=== PATIENT | male | born 1945 | race Caucasian/White ===

== ENCOUNTER 2021-11-11 23:20 | Inpatient (IN) ==
--- NOTE | 2021-11-12 00:01 | Emergency Department Note ---
History of Present Illness General Chief complaint: Shortness of Breath/Dyspnea Stated complaint: SOB Time Seen by Provider: 11/11/21 23:32 Source: patient Mode of arrival: ambulatory Limitations: no limitations History of Present Illness Provider complaint: shortness of breath Onset (ago): week(s) 2 Maximum Pain Intensity: 2 Associated symptoms: + cough, + fever/chills, + loss of appetite and + shortness of breath; no chest pain Treatments prior to arrival: other This is a 76-year-old male presents emergency department with shortness of breath. Patient states he has had increased shortness of breath, cough, and fever/chills over the last 2 weeks. Patient states he was seen by his PCP as an outpatient a week and a half ago and sent for a chest x-ray which revealed pneumonia. Patient states at that time he was started on an antibiotic which she only has 1 day left of. Per the patient's medication list he has been taking Cefpodoxime. Patient has a history of CLL as well as prior TB. Patient has had multiple episodes of pneumonia which have previously required hospitalization. Patient states he does check his pulse ox at home which has been mostly in the mid 90s but occasionally will drop to 90%. He has not seen anything lower than that. Patient states he has had a decreased appetite, some mild constipation, but is trying to stay well-hydrated. Patient denies any overt nausea or vomiting. 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 He states he also sees Dr. Pierre of oncology. Patient states this past week they also had him perform a sputum culture. Patient denies noting any hemoptysis. Patient states he did miss his last scheduled dose of IVIG. Pt seen during a time of high acuity and national emergency pandemic while wearing PPE. Home Medications Medication Instructions Recorded Confirmed Type omeprazole 20 mg tablet,delayed 20 mg PO DAILY #0 cap 01/16/16 11/12/21 History release ascorbate calcium (vitamin C) 500 500 mg PO DAILY 07/11/21 11/12/21 History mg tablet aspirin 81 mg tablet,delayed 81 mg PO DAILY 07/11/21 11/12/21 History release ferrous sulfate 325 mg (65 mg 325 mg PO DAILY 07/11/21 11/12/21 History iron) tablet (Feosol) fluticasone furoate 200 1 inh INHALATION DAILY 07/11/21 11/12/21 History mcg-vilanterol 25 mcg/dose inhalation powder (Breo Ellipta) fluticasone propionate 50 2 spray INTRANASAL DAILY 07/11/21 11/11/21 History mcg/actuation nasal spray,suspension cefpodoxime 200 mg tablet 200 mg PO BID 11/02/21 11/11/21 History L.acidoph-L.rhamn-B.bifidum-B.long 1 tab PO TIDM 11/11/21 11/11/21 History 12.9 mg (2 billion cell) tablet, DR (Probiotic Acidophilus Biobeads) multivitamin with minerals 1 tab PO DAILY 11/11/21 11/11/21 History (Multiple Vitamin-Minerals) zinc 50 mg tablet 50 mg PO DAILY 11/12/21 11/12/21 History Allergies Allergy/AdvReac Type Severity Reaction Status Date / Time rofecoxib Allergy Intermediate RASH,SWELLING, Verified 11/12/21 00:02 UNSTEADY GAIT/STUMBLING meperidine Allergy Vomiting Unverified 11/12/21 00:02 Past Med/Surg History Medical History (Updated 11/13/21 @ 02:42 by Sue Parekh DO) Asthma BPH (benign prostatic hyperplasia) Tuberculosis UTI (urinary tract infection) Social History Smoking Status: Never smoker Hx Alcohol Use: No Hx Substance Use: No Preferred Language: Chadian Communication Ability: Effective Program Research Specialist Required: No Beliefs That Will Affect Care: None Current Living Situation: Spouse Other Information That Helps Us Care for You: No Feels Safe at Home: Yes Safety Concerns: Feels Safe At This Time Assistive Devices: None Review of Systems A total of 10 systems reviewed and were otherwise negative All systems reviewed & are unremarkable except as noted in HPI & below Physical Exam Vital Signs Vital Signs - 24 hr 11/12/21 04:00 Pulse Rate [Apical] 78 Pulse Rhythm [Apical] Regular Pulse Strength [Apical] Normal Respiratory Rate 20 Respiratory Effort / Characteristics Non-Labored Respiratory Depth Normal Blood Pressure [Right Arm] 174/79 H Blood Pressure Mean [Right Arm] 110 Blood Pressure Position [Right Arm] Lying Pulse Oximetry 95 Oxygen Delivery Method Room Air GENERAL: alert, well appearing, well nourished, no distress, non-toxic EYE EXAM: normal conjunctiva, PERRL and EOM's grossly intact OROPHARYNX: no exudate, no erythema, lips, buccal mucosa, and tongue normal and mucous membranes are moist NECK: supple, no nuchal rigidity, no adenopathy, non-tender LUNGS: Clear to auscultation. Normal chest wall mechanics, no w/r, scattered rhonchi, conversational dyspnea, no retractions, frequent coarse cough noted during exam HEART: no murmurs, S1 normal and S2 normal ABDOMEN: abdomen soft, non-tender, normo-active bowel sounds, no masses, no rebound or guarding. BACK: Back is symmetrical on inspection and there is no deformity, no midline tenderness, no CVA tenderness. SKIN: no rashes and no bruising UPPER EXTREMITIES: upper extremities are grossly normal. FROM, nml pulses b/l. LOWER EXTREMITIES: No pitting edema. FROM, nml pulses b/l. NEURO EXAM: Normal sensorium, cranial nerves II-XII grossly intact, normal speech, no gross weakness of arms, no gross weakness of legs. Gross sensation intact. Course Course 0140: Pt updated on results. 0223: We did inquire of the lab type regarding any appearance of blast cells. 0312: 2 lab techs review the patient's blood and stated there were no blast cells. 0358: Discussed with Dr. Esapña. 0405: Updated pt again. VS stable. Administered Medications Albuterol (Albut/Ipratrop 3mg/0.5mg Neb 3 Ml Vial) 3 ml NEB Q6R FRANCIS; Protocol Stop: 12/12/21 18:59 Last Admin: 11/13/21 00:08 Dose: 3 ml Documented by: [id number] Admin: 11/12/21 19:36 Dose: 3 ml Documented by: [id number] Ascorbic Acid (Ascorbic Acid 500 Mg Tab) 500 mg PO DAILY COUNT INCLUDES THE [facility] Stop: 12/12/21 10:44 Last Admin: 11/12/21 11:09 Dose: 500 mg Documented by: [id number] Aspirin (Aspirin 81 Mg Ectab) 81 mg PO DAILY FRANCIS Stop: 12/12/21 10:44 Last Admin: 11/12/21 11:09 Dose: 81 mg Documented by: [id number] Enoxaparin Sodium (Enoxaparin Inj 40 Mg/0.4 Ml Syr) 40 mg SQ Q24H FRANCIS Stop: 12/12/21 10:44 Last Admin: 11/12/21 11:08 Dose: Not Given Documented by: [id number] Ferrous Sulfate (Ferrous Sulfate 325 Mg Tab) 325 mg PO DAILY FRANCIS Stop: 12/12/21 10:44 Last Admin: 11/12/21 11:09 Dose: 325 mg Documented by: [id number] Fluticasone Propionate (Fluticasone Propionate Na Spr 16 Gm Btl) 2 sprays SOPHIA DAILY FRANCIS Stop: 12/12/21 10:44 Last Admin: 11/12/21 11:10 Dose: Not Given Documented by: [id number] Fluticasone/Vilanterol (Fluticasone/Vilanterol 200/25mcg 14 Puffs/Inhaler) 1 puffs INH DAILY FRANCIS Stop: 12/12/21 10:44 Last Admin: 11/12/21 11:04 Dose: 1 puffs Documented by: [id number] Guaifenesin/Codeine Phosphate (Guaifenesin/Codeine 100mg/10mg 5ml Udc) 5 ml PO Q6H COUNT INCLUDES THE [facility] Stop: 12/12/21 15:59 Last Admin: 11/12/21 21:20 Dose: 5 ml Documented by: [id number] Admin: 11/12/21 16:47 Dose: 5 ml Documented by: [id number] Multivitamins/Minerals (Cerovite Adv Formula Tab) 1 tab PO DAILY COUNT INCLUDES THE [facility] Stop: 12/12/21 10:44 Last Admin: 11/12/21 11:09 Dose: 1 tab Documented by: [id number] Pantoprazole Sodium (Pantoprazole 40 Mg Tab) 40 mg PO DAILY COUNT INCLUDES THE [facility] Stop: 12/12/21 10:44 Last Admin: 11/12/21 11:08 Dose: 40 mg Documented by: [id number] Sodium Chloride (Saline Nasal Gel ([place]) 14.1 Gm Tube) 1 appln TOP DAILY PRN PRN Reason: BANDAGE CHANGE Stop: 12/12/21 15:09 Last Admin: 11/12/21 15:27 Dose: 1 appln Documented by: [id number] Zinc Sulfate (Zinc Sulfate 220 Mg Capsule) 220 mg PO DAILY COUNT INCLUDES THE [facility] Stop: 12/12/21 10:44 Last Admin: 11/12/21 11:09 Dose: 220 mg Documented by: [id number] Discontinued Medications Guaifenesin/Dextromethorphan (Guaifenesin/Dextrom Syrup 200mg/20mg 10ml Udc) 10 ml PO Q6H FRANCIS Stop: 12/12/21 11:59 Last Admin: 11/12/21 12:32 Dose: 10 ml Documented by: [id number] Sodium Chloride (Nss 1000ml) 1,000 mls @ 125 mls/hr IV .Q8H FRANCIS Stop: 12/11/21 23:44 Last Infusion: 11/12/21 10:38 Dose: 0 mls/hr Documented by: [id number] Admin: 11/12/21 09:08 Dose: 125 mls/hr Documented by: [id number] Infusion: 11/12/21 09:05 Dose: 0 mls/hr Documented by: [id number] Infusion: 11/12/21 08:13 Dose: 125 mls/hr Documented by: [id number] Admin: 11/12/21 00:13 Dose: 125 mls/hr Documented by: [id number] Levofloxacin/Dextrose (Levaquin/D5w) 750 mg in 150 mls @ 100 mls/hr IV NOW STA Stop: 11/12/21 04:56 Last Infusion: 11/12/21 05:30 Dose: 0 mls/hr Documented by: [id number] Admin: 11/12/21 03:51 Dose: 100 mls/hr Documented by: [id number] Sodium Chloride (Nss 1000ml) 1,000 mls @ 125 mls/hr IV .Q8H FRANCIS Stop: 11/12/21 20:14 Last Infusion: 11/12/21 21:16 Dose: 0 mls/hr Documented by: [id number] Infusion: 11/12/21 15:00 Dose: 125 mls/hr Documented by: [id number] Admin: 11/12/21 11:01 Dose: 80 mls/hr Documented by: [id number] Ioversol (Optiray 320 100ml) 94 ml IV ONCE ONE Stop: 11/12/21 01:54 Last Admin: 11/12/21 01:54 Dose: 94 ml Documented by: [id number] Lactobacillus Acidophilus (Advanced Probiotic 1250 Mg Capsule) 2 cap PO DAILY FRANCIS Stop: 12/12/21 10:44 Last Admin: 11/12/21 11:09 Dose: 2 cap Documented by: [id number] Miscellaneous Information (Consult Pharmacy) 1 ea N/A NOW STA Stop: 11/12/21 05:25 Last Admin: 11/12/21 06:58 Dose: Not Given Documented by: [id number] Medical Decision Making Differential Diagnosis Differential diagnoses includes but is not limited to pneumonia, bronchitis, COPD/Asthma exacerbation, pneumothorax, pulmonary embolism, congestive heart failure, acute coronary syndrome Medical Records Attestation: I reviewed the patient's medical records. Home Medications Current Medication List: was personally reviewed by me Laboratory Data Attestation: I reviewed the patient's lab results. Result diagrams: 11/12/21 10:46 11/12/21 10:46 Lab Results 11/12/21 11/12/21 11/12/21 Range/Units 00:07 00:07 00:07 WBC 137.28 H* (4.8-10.8) K/uL RBC 2.71 L (4.7-6.1) M/uL Hgb 9.1 L (14.0-18.0) g/dL Hct 27.2 L (42-52) % MCV 100.4 H (80-100) fL MCH 33.6 (25-34) pg MCHC 33.5 (32-36) g/dL RDW Std Deviation 54.3 H (36.4-46.3) fL RDW Coeff of [place] 15.0 H (11.5-14.5) % Plt Count 285 (130-400) K/uL MPV 10.8 H (7.4-10.4) fL Neutrophils % (Manual) 1.5 % Lymphocytes % (Manual) 2.3 % Reactive Lymphs % (Man) 94.7 % Monocytes % (Manual) 1.5 % Neutrophils # (Manual) 2.06 (1.4-6.5) K/uL Total Absolute Neuts 2.06 (1.4-6.5) K/uL Lymphocytes # (Manual) 3.16 (1.2-3.4) K/uL Reactive Lymphs # 130.00 K/uL Total Abs Lymphocytes 133.16 H (1.2-3.4) K/uL Monocytes # (Manual) 2.06 H (0.11-0.59) K/uL RBC Morphology Unremarkable Sodium 136 (136-145) mmol/L Potassium 4.3 (3.5-5.1) mmol/L Chloride 104 (98-107) mmol/L Carbon Dioxide 24 (21-32) mmol/L Anion Gap 8 (3-11) BUN 23 (6-23) mg/dl Creatinine 1.14 (0.6-1.4) mg/dl Est Cr Clr Drug Dosing 52.6 ml/min Est GFR ( Amer) 72.0 ml/min Est GFR (Non-Af Amer) 62.1 ml/min BUN/Creatinine Ratio 20.2 H (10-20) Glucose 109 H (70-99(Fasting)) mg/dl Calcium 9.5 (8.5-10.1) mg/dl Phosphorus (2.5-4.9) mg/dl Magnesium 2.1 (1.7-2.4) mg/dl Total Bilirubin 0.3 (0.2-1.0) mg/dl AST 17 (13-39) U/L ALT 12 (7-52) U/L Alkaline Phosphatase 118 H (34-104) U/L Troponin I < 0.03 (0-0.04) ng/ml C-Reactive Protein 12.71 H (0-0.5) mg/dl Total Protein 6.5 (6.0-8.3) gm/dl Albumin 3.4 (3.4-5.0) gm/dl Globulin 3.1 (2.5-4.0) gm/dl Albumin/Globulin Ratio 1.1 (0.9-2) Procalcitonin (0-0.5) ng/ml Nasal Screen MRSA (PCR) (Negative) SARS-CoV-2, RNA, NAAT NEGATIVE (NEGATIVE) 11/12/21 11/12/21 11/12/21 Range/Units 00:07 02:09 04:09 WBC (4.8-10.8) K/uL RBC (4.7-6.1) M/uL Hgb (14.0-18.0) g/dL Hct (42-52) % MCV (80-100) fL MCH (25-34) pg MCHC (32-36) g/dL RDW Std Deviation (36.4-46.3) fL RDW Coeff of [place] (11.5-14.5) % Plt Count (130-400) K/uL MPV (7.4-10.4) fL Neutrophils % (Manual) % Lymphocytes % (Manual) % Reactive Lymphs % (Man) % Monocytes % (Manual) % Neutrophils # (Manual) (1.4-6.5) K/uL Total Absolute Neuts (1.4-6.5) K/uL Lymphocytes # (Manual) (1.2-3.4) K/uL Reactive Lymphs # K/uL Total Abs Lymphocytes (1.2-3.4) K/uL Monocytes # (Manual) (0.11-0.59) K/uL RBC Morphology Sodium (136-145) mmol/L Potassium (3.5-5.1) mmol/L Chloride (98-107) mmol/L Carbon Dioxide (21-32) mmol/L Anion Gap (3-11) BUN (6-23) mg/dl Creatinine (0.6-1.4) mg/dl Est Cr Clr Drug Dosing ml/min Est GFR ( Amer) ml/min Est GFR (Non-Af Amer) ml/min BUN/Creatinine Ratio (10-20) Glucose (70-99(Fasting)) mg/dl Calcium (8.5-10.1) mg/dl Phosphorus 2.8 (2.5-4.9) mg/dl Magnesium (1.7-2.4) mg/dl Total Bilirubin (0.2-1.0) mg/dl AST (13-39) U/L ALT (7-52) U/L Alkaline Phosphatase (34-104) U/L Troponin I (0-0.04) ng/ml C-Reactive Protein (0-0.5) mg/dl Total Protein (6.0-8.3) gm/dl Albumin (3.4-5.0) gm/dl Globulin (2.5-4.0) gm/dl Albumin/Globulin Ratio (0.9-2) Procalcitonin 0.13 (0-0.5) ng/ml Nasal Screen MRSA (PCR) Negative (Negative) SARS-CoV-2, RNA, NAAT (NEGATIVE) Imaging Data Radiologist's Impression: CT chest with contrast: There is new patchy opacity in the posterior aspect of the right upper lobe and involving the bilateral lung bases when compared to the CT examination dated 05/19/2021 and the plain radiographs of 11/01/2021. Primary consideration is multifocal pneumonia. The appearance is not typical for viral infection. No pleural effusion or pneumothorax. The left axillary lymphadenopathy persists but appears improved. However, there are several new abnormal mediastinal and hilar lymph nodes, larger in size from the previous examination. The largest subcarinal lymph node measures 1.7 cm in short axis diameter. Findings are concerning for advancing/recurrent lymphoproliferative process. The thoracic aorta and cardiac chambers are unremarkable. No pericardial effusion. Radiologist: Shawn Chambers MD CT abdomen and pelvis with contrast: Bibasilar patchy to confluent opacities. Please see the CT of the chest performed the same day for further findings. There is a periaortic and aortocaval lymphadenopathy noted with the largest aortocaval lymph node measuring 15 mm in short axis diameter. There is extensive mesenteric lymphadenopathy. No significant pelvic lymphadenopathy. Findings are concerning for recurrent or residual focal proliferative process. No prior abdominal imaging available. No evidence for high-grade bowel obstruction. At least moderate stool burden represent constipation. Scattered fluid-filled loops of distal small bowel without dilatation or represent normal variation or mild enteritis. No free intraperitoneal fluid or pneumoperitoneum. Mild to moderate right hydroureteronephrosis with ureteral distention extending to the pelvis. No obstructive nephrolithiasis. Asymmetric right urothelial thickening noted. Differential consideration includes chronic changes versus inflammation/infection of the right urothelium. The kidneys demonstrate normal enhancement without evidence for pyelonephritis. Suspect left parapelvic renal cyst. The bladder is mild to moderately distended without bladder stones or bladder wall thickening. The liver, gallbladder, pancreas and adrenal glands are unremarkable. Splenomegaly with the spleen measuring 14.3 cm in length. No focal splenic lesions. No acute osseous or significant overlying soft tissue abnormality. Radiologist: Shawn Chowdhury MD ECG Data Attestation: I personally reviewed and interpreted this ECG as follows: Indication: + SOB/dyspnea Rate (beats per minute): 70 Rhythm: + normal sinus ECG Intervals/blocks: + Normal QRS and + Normal QT ECG Dickinson: + Normal ECG ST segments: + Normal ST segments MDM Narrative This 76-year-old male presents emergency department concern for persistent shortness of breath and recent diagnosis of pneumonia. Patient does have remote history of TB which was treated as well as current diagnosis of CLL. Patient is not currently undergoing chemotherapy. Patient was taking a regimen of antibiotics as an outpatient, however due to risk factors and persistent sympt oms, labs are drawn and sent and patient sent for CT imaging. Patient found to have multifocal pneumonia. Started on IV Levaquin, blood cultures and procalcitonin added. Patient remained hemodynamically stable, was not requiring additional oxygen except with prolonged talking or exertion he would drop to 90% and appear more dyspneic. I do not suspect PE despite malignancy history. I do not suspect other acute cardiac etiology of his dyspnea. I did discuss all results with patient at bedside and we discussed lab abnormalities in addition including significant leukocytosis and worsening anemia. It is unclear if this is all secondary to infection on top of his CLL. Patient states he did miss his last dose of IVIG. Patient was cautiously hydrated, and we did asked the lab to verify the presence or absence of blast cells to exclude a blast crisis. At this time I do not suspect blast crisis. Despite leukocytosis I do not suspect bacteremia/sepsis. Patient certainly has had a failed outpatient treatment of pneumonia and has previously been hospitalized for pneumonia. Case was d iscussed with hospitalist for additional evaluation and management. An order was placed for continuous cardiac monitoring. The monitor shows a rate of _82_ with _normal sinus_ rhythm. Impression & Plan Dyspnea, Multifocal pneumonia, CLL (chronic lymphocytic leukemia), Anemia, Leukocytosis Discharge Plan Visit Data Chief Complaint: Shortness of Breath/Dyspnea Stated Complaint: SOB ED Provider: Sue Parekh Discharge Problem: Dyspnea, Multifocal pneumonia, CLL (chronic lymphocytic leukemia), Anemia, Leukocytosis Patient Disposition: Admitted As Inpatient Discharge Instructions Interventions: ED Discharge Assessment Last Done: 11/12/21 10:15
[2021-11-12] MEDS: SODIUM CHLORIDE 0.9% 1000ML 1,000 ML IV SCH ×2 (00:13→09:08)
[2021-11-12 01:12] LABS: Hematocrit (blood only) 27.2 % (42-52); Hemoglobin 9.1 g/dL (14.0-18.0); Mean Corpuscular Hemoglobin 33.6 pg (25-34); Mean Corpuscular Hgb Conc 33.5 g/dL (32-36); Mean Corpuscular Volume 100.4 fL (80-100); Mean Platelet Volume 10.8 fL (7.4-10.4); Platelet Count 285 K/uL (130-400); RDW Standard Deviation 54.3 fL (36.4-46.3); Red Blood Count 2.71 M/uL (4.7-6.1); White Blood Count 137.28 K/uL (4.8-10.8)
[2021-11-12 01:23] LABS: Troponin I < 0.03 ng/ml (0-0.04)
[2021-11-12 01:29] LABS: Alanine Aminotransferase 12 U/L (7-52); Albumin Globulin Ratio 1.1 (0.9-2); Albumin Level 3.4 gm/dl (3.4-5.0); Alkaline Phosphatase 118 U/L (34-104); Anion Gap 8 (3-11); Aspartate Aminotransferase 17 U/L (13-39); BUN Creatinine Ratio 20.2 (10-20); Bilirubin,Total 0.3 mg/dl (0.2-1.0); Blood Urea Nitrogen 23 mg/dl (6-23); C Reactive Protein 12.71 mg/dl (0-0.5); Calcium 9.5 mg/dl (8.5-10.1); Carbon Dioxide 24 mmol/L (21-32); Chloride 104 mmol/L (98-107); Creatinine Clr Calc Pharmacy 52.6 ml/min; Est GFR (Non-African American) 62.1 ml/min; Globulin 3.1 gm/dl (2.5-4.0); Glucose 109 mg/dl (70-99(Fasting)); Magnesium 2.1 mg/dl (1.7-2.4); Potassium 4.3 mmol/L (3.5-5.1); Sodium 136 mmol/L (136-145); Total Protein 6.5 gm/dl (6.0-8.3)
[2021-11-12 01:47] LABS: ALC (manual) 133.16 K/uL (1.2-3.4); ANC (manual) 2.06 K/uL (1.4-6.5); Lymphocytes # (manual) 3.16 K/uL (1.2-3.4); Lymphocytes % (manual) 2.3 %; Monocytes # (manual) 2.06 K/uL (0.11-0.59); Monocytes % (manual) 1.5 %; Neutrophils # (manual) 2.06 K/uL (1.4-6.5); Neutrophils % (manual) 1.5 %; RBC Morphology Unremarkable; Reactive Lymphocytes % (manual) 94.7 %
[2021-11-12] MEDS ORDERED: OPTIRAY 320 100ml IV ONE (01:53)
[2021-11-12] MEDS ORDERED: levoFLOXacin/D5W 750 MG/150 ML BAG IV STA (03:27)
--- NOTE | 2021-11-12 04:16 | History & Physical Report ---
Date of Service November 12, 2021 History of Present Illness Primary Care Provider: Cordell Valle This is a 76-year-old male with a history of CLL, asthma, prior tuberculosis who presents to [facility] for evaluation of illness-like symptoms and shortness of breath. Patient reports that over the last 2 weeks, he has experienced increase in fevers, chills, cough, and intermittent shortness of breath. He does have a history of multiple episodes of pneumonia that have required hospitalization in the past. In addition to this, he reports decreased appetite without nausea or vomiting. He saw his PCP for this just after symptoms started, and was started on Cefpodoxime for pneumonia. Of note, it appears that patient was seen in July [address] Martins for multilobar pneumonia that required treatment with antibiotics. He also follows with Dr. Pierre for his CLL. Regarding his current chemotherapy regimen, he reports_. 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 Dr. Martins as noted previously that patient has some residual scarring in the left upper lobes, likely from this. Patient also has a history of asthma that he takes Breo for. On arrival in the ER, patient was found to be afebrile with normal vital signs. Labs were significant for a profound leukocytosis to 137 with associated lymphocytosis to 133 (and w/o blasts), anemia 9.1 with macrocytosis, ALP 118, CRP 12.7, negative troponin, negative COVID-19. CT chest (stat rad) demonstrated new patchy opacity within the posterior aspect of the right upper lobe of the lung as well as bilateral lung bases, concerning for multifocal, nonviral pneumonia. Further, also demonstrated enlargement of mediastinal and hilar lymph nodes. CT of the abdomen pelvis demonstrated periaortic/aortocaval/mesenteric lymphadenopathy, concerning for residual focal proliferative process; also demonstrated mild to moderate right-sided hydroureteronephrosis with ureteral dilation extending into the pelvis without obvious obstructing nephrolithiasis, as well as asymmetric right urothelial thickening. Patient was started on intravenous fluids and levofloxacin. Allergies Allergy/AdvReac Type Severity Reaction Status Date / Time rofecoxib Allergy Intermediate RASH,SWELLING, Verified 11/12/21 00:02 UNSTEADY GAIT/STUMBLING meperidine Allergy Vomiting Unverified 11/12/21 00:02 Home Medications Medication Instructions Recorded Confirmed Type omeprazole 20 mg tablet,delayed 20 mg PO DAILY #0 cap 01/16/16 11/12/21 History release ascorbate calcium (vitamin C) 500 500 mg PO DAILY 07/11/21 11/12/21 History mg tablet aspirin 81 mg tablet,delayed 81 mg PO DAILY 07/11/21 11/12/21 History release ferrous sulfate 325 mg (65 mg 325 mg PO DAILY 07/11/21 11/12/21 History iron) tablet (Feosol) fluticasone furoate 200 1 inh INHALATION DAILY 07/11/21 11/12/21 History mcg-vilanterol 25 mcg/dose inhalation powder (Breo Ellipta) fluticasone propionate 50 2 spray INTRANASAL DAILY 07/11/21 11/11/21 History mcg/actuation nasal spray,suspension cefpodoxime 200 mg tablet 200 mg PO BID 11/02/21 11/11/21 History L.acidoph-L.rhamn-B.bifidum-B.long 1 tab PO TIDM 11/11/21 11/11/21 History 12.9 mg (2 billion cell) tablet, DR (Probiotic Acidophilus Biobeads) multivitamin with minerals 1 tab PO DAILY 11/11/21 11/11/21 History (Multiple Vitamin-Minerals) zinc 50 mg tablet 50 mg PO DAILY 11/12/21 11/12/21 History Past Med/Surg History Medical History Asthma BPH (benign prostatic hyperplasia) Tuberculosis UTI (urinary tract infection) Social History Smoking Status: Never smoker Feels Safe at Home: Yes Review of Systems Review of Systems: as per HPI Results & Data Results & Data ([facility]) Vital Signs (Past 12 Hours) Vital Signs Temp Pulse Pulse Resp BP BP Pulse Ox 11/12/21 00:15 69 14 127/60 94 11/11/21 23:25 36.8 C 74 16 122/83 94
[2021-11-12] MEDS ORDERED: CONSULT PHARMACY STA (05:24)
[2021-11-12 07:38] LABS: Adenovirus PCR Not Detected (NotDetected); Bordetella parapertussis PCR Not Detected (NotDetected); Bordetella pertussis PCR Not Detected (NotDetected); Chlamydia pneumoniae PCR Not Detected (NotDetected); Coronavirus 229E PCR Not Detected (NotDetected); Coronavirus CoV-2 (COVID19)PCR Not Detected (NotDetected); Coronavirus HKU1 PCR Not Detected (NotDetected); Coronavirus NL63 PCR Not Detected (NotDetected); Coronavirus OC43PCR Not Detected (NotDetected); Human Metapneumovirus PCR Not Detected (NotDetected); Influenza A PCR Not Detected (NotDetected); Influenza B PCR Not Detected (NotDetected); Mycoplasma pneumoniae PCR Not Detected (NotDetected); Parainfluenza Virus 1 PCR Not Detected (NotDetected); Parainfluenza Virus 2 PCR Not Detected (NotDetected); Parainfluenza Virus 3 PCR Not Detected (NotDetected); Parainfluenza Virus 4 PCR Not Detected (NotDetected); Respiratory Syncytial VirusPCR Not Detected (NotDetected); Rhinovirus/Enterovirus PCR Not Detected (NotDetected)
--- NOTE | 2021-11-12 08:56 | History and Physical Report ---
DATE OF ADMISSION: 11/12/2021. CHIEF COMPLAINT: Multifocal pneumonia, failed outpatient treatment. HISTORY OF PRESENT ILLNESS: This is a 76-year-old male with past medical history significant for asthma, moderate persistent, BPH, history of B-cell CLL, hypogammaglobulinemia, history of tuberculosis in status post treatment, presents with shortness of breath and cough. The patient says he has had multiple pneumonias since last summer and has also sinus infections. He was diagnosed with B-cell CLL couple of years in 06/2020 and hypogammaglobulinemia IgG level around 450-470 range as per the Hem/Onc notes and he was getting IVIG q. 4 weekly started on 01/2021. Regarding B-cell CLL, currently under observation. The patient says he has again developed cough, since couple of weeks having short of breath, bringing yellowish phlegm, sometimes also has yellowish stuff is coming from his nose. Recently saw Pulmonary and was started on antibiotics of cefpodoxime 200 mg b.i.d. for 10 days and almost he is on the last dose, but it is not getting better. He has had temperature of 100 at home and is feeling short of breath with exertion and has ongoing symptoms. He came to the ER and CAT scan done here shows multifocal pneumonia. His COVID is negative. Patient says he is vaccinated and boosted and his family also is vaccinated and boosted. Currently resting comfortably, hemodynamically stable. Oxygen saturation is okay. Has some headache, no blurred visions, no sore throat, no difficulty swallowing. Appetite is slightly down. Denies any chest pain, no nausea, no vomiting, no abdominal pain. Stools are somewhat constipated and dark. He has prostate problems. Problems with micturation.No swelling in the legs. Ambulating okay at home. ALLERGIES: ROFECOXIB, MEPERIDINE. PAST MEDICAL HISTORY: As mentioned above. PAST SURGICAL HISTORY: Dental surgery, heart catheterization, tonsil and adenoidectomy, vasectomy, transurethral resection of the prostate. MEDICATIONS: The patient is on vitamin C 500 mg p.o. daily, aspirin 81 mg p.o. daily, cefpodoxime 200 mg p.o. b.i.d., ferrous sulfate 325 mg p.o. daily, Flonase, vilanterol 1 inhalation daily, fluticasone 2 sprays intranasal daily, probiotic 1 tablet p.o. t.i.d. with meals, multivitamins with minerals 1 tablet p.o. daily, omeprazole 20 mg p.o. daily, zinc 50 mg p.o. daily. FAMILY HISTORY: Significant for brother has cancer; mother has diabetes. Father has ear problems, brother has hypertension. Another brother has bipolar disorder, maternal grandmother has thyroid disorder. SOCIAL HISTORY: , no smoking. No alcohol. REVIEW OF SYSTEMS: As per HPI. Rest of the review of systems is negative. PHYSICAL EXAMINATION: GENERAL: The patient is of moderate build, not in acute distress. VITAL SIGNS: Temperature 36.8, pulse 78, respiratory rate 20, blood pressure 174/79, oxygen 95% on room air. HEENT: Pupils equal, round and reactive to light. Oral mucosa moist. NECK: No JVD, no neck masses. CARDIOVASCULAR: S1 and S2 heard. Regular rate and rhythm. No murmur, no gallop. RESPIRATORY SYSTEM: Normal AP diameter. No accessory muscle use. No wheezing, no crackles. ABDOMEN: Soft, bowel sounds present, nontender, no distention. CENTRAL NERVOUS SYSTEM: Cranial nerves II-XII grossly intact, nonfocal. EXTREMITIES: No edema, no erythema. LABORATORY DATA: WBC 137, hemoglobin 9.1, hematocrit 27.2, platelets 285. Sodium 136, potassium 4.3, chloride 104, bicarbonate 24, BUN 23, creatinine 1.1, serum glucose 109, calcium 9.52, phosphorus 2.8, magnesium 2.1, total bilirubin 0.3, AST 17, ALT 12, alkaline phosphatase 118. Troponin I less than 0.03. C- reactive protein 12.7. Procalcitonin 0.13. SARS-CoV-2 negative. IMAGING DATA: CT chest, preliminary report showed multifocal pneumonia. CT of abdomen and pelvis preliminary report periaortic and aortocaval lymphadenopathy, extensive mesenteric lymphadenopathy, no significant pelvic lymphadenopathy, no bowel obstruction. Moderate stool burden. Mild to moderate right hydroureteronephrosis, ureteral distention. Pelvis, no obstructive nephrolithiasis. ASSESSMENT AND PLAN: This is a 76-year-old male who presents multifocal pneumonia. 1. Multifocal pneumonia. Failed outpatient treatment. History of multiple pneumonias and sinus infections, hypogammaglobulinemia. Getting IVIG per Hem/Onc. ER doctor discussed with the pharmacy and was recommend Levaquin. We will continue Levaquin for now. Since he saw pulmonary recently, we will consult pulmonary to help with antibiotics and treatment plan. Monitor in the med tele. Gentle fluids. 2. Benign prostatic hyperplasia. We will monitor for any urinary retention. 3. History of B-cell chronic lymphocytic leukemia. White count 137. Outpatient labs on 10/04/2021, his white count was 186. Follow up with Hem/Onc. If any concern we will notify Hem/Onc. 4. History of tuberculosis, status post treatment. 5. History of asthma. Continue home inhalers. 6. Anemia. Continue iron supplements. 7. Gastroesophageal reflux disease. Continue omeprazole. 8. Deep venous thrombosis prophylaxis: We will place him on Lovenox. DISPOSITION: Closely monitor in the med tele. PT/OT prior to discharge. Social service to help with discharge planning. Job ID: [id number] MTDD
--- NOTE | 2021-11-12 09:19 | CT Scan Report ---
CT chest diagnostic w con CLINICAL HISTORY: recent pna, persistent cough and shortness of breath COMPARISON STUDY: Chest radiograph from 11/01/2021 CT DOSE: 538.19 mGy.cm TECHNIQUE: Standard CT of the Chest was performed with IV contrast. A dose lowering technique was u tilized adhering to the principles of ALARA. Contrast Volume: Optiray 320, 94 ml FINDINGS: Airway: The airway is clear. No endobronchial lesion is identified. Lungs: There are patchy groundglass opacities present within the posterior segment of the right upper lobe and both lung bases bilaterally. There is evidence for bronchiectasis in both lung bases. Findi ngs are characteristic of a multifocal pneumonia. Patient is reportedly Covid negative. Pleura: There is no evidence for pleural effusion. There is no evidence for pneumothorax. Mediastinum: There is evidence for extensive mediastinal, bilateral hilar, right greater left and sub carinal adenopathy. Right hilar lymph node measures 2.9 x 1.8 cm. There is also bilateral axillary ad enopathy. The heart size is within normal limits. The thoracic aorta is within normal limits. There i s no evidence for pericardial effusion. Upper abdomen: The adrenal glands are normal bilaterally. Osseous structures: There is no acute osseous pathology. IMPRESSION: 1. Bilateral multifocal pneumonia. 2. Extensive mediastinal, bilateral hilar, subcarinal and axillary adenopathy. The findings are lena cteristic of iterative the presence of lymphoma or metastatic disease. No underlying neoplasm was pro vided. ACT 112: Negative or not required by law. Electronically signed by: Patrice Booker M.D. 11/12/2021 9:17 AM
--- NOTE | 2021-11-12 09:32 | Electrocardiogram Report ---
Test Reason : Blood Pressure : / mmHG Vent. Rate : 070 BPM Atrial Rate : 070 BPM P-R Int : 154 ms QRS Dur : 086 ms QT Int : 376 ms P-R-T Axes : 075 040 047 degrees QTc Int : 406 ms Normal sinus rhythm Normal ECG When compared with ECG of 23-DEC-2007 15:45, No significant change Confirmed by Magdy Root ([id number]) on 11/12/2021 9:32:09 AM Referred By: REFERRED SELF Confirmed By:Magdy Root
--- NOTE | 2021-11-12 10:16 | CT Scan Report ---
CT abd pelvis IV con only CLINICAL HISTORY: Cough and shortness of breath. History of CLL. Reported history of recent pneumonia . COMPARISON STUDY: CT chest from 11/12/2021 CT DOSE: TECHNIQUE: Standard CT of the Abdomen and Pelvis was performed with IV contrast. A dose lowering rocio hnique was utilized adhering to the principles of ALARA. Contrast Volume: Optiray 320, 94 ml. The patient did not receive oral contrast. FINDINGS: Lung base: Bibasilar alveolar opacities are identified as reported on CT of the chest. Abdominal cavity: There is evidence for marked mesenteric, periaortic and retroperitoneal adenopathy. Liver: There is homogeneous attenuation of the liver parenchyma. There is no evidence for enhancing m ass lesion. Spleen: There is homogeneous attenuation of the splenic parenchyma. There is no enhancing mass lesion . There is moderate to marked splenomegaly. Pancreas: There is homogeneous attenuation of the pancreatic parenchyma. There is no evidence for mas s lesion or peripancreatic fluid collection. Gall Bladder: The gallbladder is well distended with no evidence for intraluminal calculi, wall thick ening or pericholecystic edema. Adrenal glands: The adrenal glands are normal in size and attenuation. There is no evidence for enhan cing mass lesion. Kidneys: There is homogeneous attenuation of the renal parenchyma bilaterally. There is no evidence f or renal calculus bilaterally. There is mild hydronephrosis on the left when compared to the right wh ich is most likely physiologic related to the patient's distended urinary bladder. There is no eviden ce for enhancing mass. Bowel: There is moderate fecal stasis without evidence for impaction or obstruction. Small bowel loop s are mildly dilated and fluid-filled throughout the majority of the abdomen and pelvis. These findin gs are most characteristic of gastroenteritis versus ileus. There are no inflammatory changes present . There is no evidence for free air. There is no evidence for an inflamed appendix. Bladder: The bladder is distended with no evidence for focal mass, calculus or diverticulum. : There is no evidence for pelvic mass or adenopathy. There is no evidence for pelvic ascites. The prostate is moderately to markedly enlarged. Vasculature: There is no evidence for aneurysmal dilatation of the abdominal aorta. Mild atherosclero tic calcification is present. Osseous structures: There is no acute osseous pathology. Mild degenerative changes are seen. IMPRESSION: 1. Extensive periaortic, retroperitoneal and mesenteric adenopathy correlating with the patient's pre vious history of CLL. 2. Moderate to marked splenomegaly. 3. Moderate fecal stasis without impaction or obstruction. 4. Fluid-filled loops of small bowel characteristic of ileus versus gastroenteritis. 5. Mild left hydronephrosis which is most likely physiologic related to distended urinary bladder. 6. Additional nonacute findings are delineated above. ACT 112: Negative or not required by law. Electronically signed by: Patrice Booker M.D. 11/12/2021 10:14 AM
[2021-11-12] MEDS ORDERED: NITROGLYCERIN SL 0.4 MG/TAB TAB SL PRN (10:25)
[2021-11-12] MEDS ORDERED: SODIUM CHLORIDE 0.9% 1000ML 1,000 ML IV SCH (10:25)
[2021-11-12] MEDS ORDERED: ACETAMINOPHEN 325 MG TAB PO PRN (10:25)
[2021-11-12] MEDS ORDERED: ADVANCED PROBIOTIC 1250 MG CAPSULE PO SCH (10:45)
[2021-11-12 11:02] LABS: Hematocrit (blood only) 27.7 % (42-52); Hemoglobin 9.1 g/dL (14.0-18.0); Mean Corpuscular Hemoglobin 33.2 pg (25-34); Mean Corpuscular Hgb Conc 32.9 g/dL (32-36); Mean Corpuscular Volume 101.1 fL (80-100); Mean Platelet Volume 10.5 fL (7.4-10.4); Platelet Count 291 K/uL (130-400); Red Blood Count 2.74 M/uL (4.7-6.1); White Blood Count 126.75 K/uL (4.8-10.8)
[2021-11-12] MEDS: FLUTICASONE/VILANTEROL 200/25MCG 14 PUFFS/INHALER INH SCH (11:04)
[2021-11-12] MEDS: ENOXAPARIN INJ 40 MG/0.4 ML SYR SQ SCH (11:08)
[2021-11-12] MEDS: PANTOprazole 40 MG TAB PO SCH (11:08)
[2021-11-12] MEDS: ASPIRIN 81 MG ECTAB PO SCH (11:09)
[2021-11-12] MEDS: ASCORBIC ACID 500 MG TAB PO SCH (11:09)
[2021-11-12] MEDS: FERROUS SULFATE 325 MG TAB PO SCH (11:09)
[2021-11-12] MEDS: CEROVITE ADV FORMULA TAB PO SCH (11:09)
[2021-11-12] MEDS: ZINC SULFATE 220 MG CAPSULE PO SCH (11:09)
[2021-11-12] MEDS: FLUTICASONE PROPIONATE NA SPR 16 GM BTL NAE SCH (11:10)
[2021-11-12 11:16] LABS: Calcium 9.4 mg/dl (8.5-10.1); Est GFR (African American) 77.7 ml/min; Est GFR (Non-African American) 67.1 ml/min; Magnesium 1.9 mg/dl (1.7-2.4); Potassium 4.1 mmol/L (3.5-5.1)
--- NOTE | 2021-11-12 11:50 | Pulmonary Consultation ---
Date of Consultation November 12, 2021 Assessment & Plan (1) Multifocal pneumonia: (2) Fever: (3) Dyspnea: Dyspnea type: shortness of breath Qualified Code(s): R06.02 - Shortness of breath (4) CLL (chronic lymphocytic leukemia): (5) Asthma: CT chest 11/12/2021 personally reviewed: Consolidative opacities appreciated in the right upper lobe as well as bilateral lower lobes Significant mediastinal lymphadenopathy especially station 7 --Multilobar pneumonia with abnormal chest CT Failed outpatient therapy with cefpodoxime Had multiple COVID-19 test as an outpatient which were negative COVID-19 PCR 11/12/2021 - negative Respiratory bio fire negative Procalcitonin 0.13 Station 7 mediastinal lymphadenopathy is likely from underlying CLL. --Asthma Patient was diagnosed in his late 40s He did have symptoms in the child but he was never diagnosed officially with it Does have seasonal allergies Currently on Breo --History of TB Diagnosed 1968 s/p treatment with isoniazid and streptomycin Patient does have some residual scarring in the left upper lobe which could be from history of TB --Hx of CLL Follows up with Dr. Pierre Not on any treatment right now WBC count 126,000 Plan: Patient failed outpatient antibiotic therapy Agree with continuation of levofloxacin for at least 10 days No current indication for bronchoscopy. Patient does have history of multiple lobar pneumonia in the past which resolved. Would recommend doing an swallow study to make sure he is not aspirating Follow-up sputum culture Please note the above document was generated using voice recognition software. It may contain grammatical, syntax or spelling errors.Any formal questions or concerns about the content, text or information contained within the body of this dictation should be directly addressed to the provider for clarification. History of Present Illness Attending Physician: Nettie Mercado MD History of Present Illness 76-year-old male coming to pulmonary for worsening cough, patient has failed outpatient antibiotic therapy Past medical history: BPH, GERD,CLL, history of TB in 1968 s/p treatment, diagnosed asthma in the 40s currently on Breo Patient had called the pulmonary clinic approximately 8 days ago when he started to complain of cough which was not remitting He was prescribed Cefpodoxime and today was supposed to be his last dose. He was still complaining of cough bringing up clear phlegm. Patient had CT chest done in the ED which showed multifocal pneumonia Patient's was also in the room during interrogation Denies any significant chest pain. He does complain of postnasal drip. Denies any dysuria or diarrhea. No recent travel history Patient has been immunized and even possible against COVID-19 He is compliant with his inhalers. Social history: Non-smoker,no alcohol use, no illicit drug use. 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 No birds or poultry nearby Allergies: Seasonal. Does not take any medications for it Asthma: No family history of asthma.Questionable childhood history of asthma and was never officially diagnosed Lung cancer: No history of lung cancer in the family Allergies Allergy/AdvReac Type Severity Reaction Status Date / Time rofecoxib Allergy Intermediate RASH,SWELLING, Verified 11/12/21 00:02 UNSTEADY GAIT/STUMBLING meperidine Allergy Vomiting Unverified 11/12/21 00:02 Home Medications Medication Instructions Recorded Confirmed Type omeprazole 20 mg tablet,delayed 20 mg PO DAILY #0 cap 01/16/16 11/12/21 History release ascorbate calcium (vitamin C) 500 500 mg PO DAILY 07/11/21 11/12/21 History mg tablet aspirin 81 mg tablet,delayed 81 mg PO DAILY 07/11/21 11/12/21 History release ferrous sulfate 325 mg (65 mg 325 mg PO DAILY 07/11/21 11/12/21 History iron) tablet (Feosol) fluticasone furoate 200 1 inh INHALATION DAILY 07/11/21 11/12/21 History mcg-vilanterol 25 mcg/dose inhalation powder (Breo Ellipta) fluticasone propionate 50 2 spray INTRANASAL DAILY 07/11/21 11/11/21 History mcg/actuation nasal spray,suspension cefpodoxime 200 mg tablet 200 mg PO BID 11/02/21 11/11/21 History L.acidoph-L.rhamn-B.bifidum-B.long 1 tab PO TIDM 11/11/21 11/11/21 History 12.9 mg (2 billion cell) tablet DR (Probiotic Acidophilus Michelle) multivitamin with minerals 1 tab PO DAILY 11/11/21 11/11/21 History (Multiple Vitamin-Minerals) zinc 50 mg tablet 50 mg PO DAILY 11/12/21 11/12/21 History Patient History Medical History (Updated 11/12/21 @ 06:59 by Sue Parekh DO) Asthma BPH (benign prostatic hyperplasia) Tuberculosis UTI (urinary tract infection) Social History Smoking Status: Never smoker Hx Alcohol Use: No Hx Substance Use: No Preferred Language: [place] Communication Ability: Effective Stopboard Assembler Required: No Beliefs That Will Affect Care: None Current Living Situation: Spouse Other Information That Helps Us Care for You: No Feels Safe at Home: Yes Safety Concerns: Feels Safe At This Time Assistive Devices: None Review of Systems Review of Systems: All systems reviewed & are unremarkable except as noted in HPI & below Physical Exam Physical Exam: Constitutional: No acute distress HEENT: EOMI, PERRLA Respiratory system: Decreased air entry bilaterally, no wheeze, no rhonchi, positive crackles bilateral lower lobes CVS: S1-S2 positive Abdomen: Soft, nontender, nondistended, positive bowel sounds x4 Extremities: +2 pulses bilaterally radialis/ dorsalis pedis, no cyanosis, no edema Neuro: Awake alert oriented x3 Psych: Normal mood and affect G/U: No Woodson Skin: no rashes, warm and dry Lymphatic: no cervical or axillary lymphadenopathy Results & Data Results & Data ([facility]) Vital Signs (Past 12 Hours) Vital Signs Temp Pulse Pulse Resp BP Pulse Ox 11/12/21 10:17 36.8 C 77 87 16 153/72 H 94 11/12/21 10:00 76 21 146/76 H 92 11/12/21 08:00 84 14 147/73 H 95 11/12/21 06:00 75 18 140/70 11/12/21 04:00 78 20 174/79 H 95 11/12/21 00:15 69 14 127/60 94 Laboratory Results 11/12/21 10:46 11/12/21 10:46 PG Care Time/CCT Total # of Minutes Spent Total Time Spent with Patient: Total time spent is greater than 50% in coordination of care (as documented) at patient's floor/unit and/or counseling patient: Coding Level of Care Code 07820 Initial Inpt Care Lvl 3 Diagnoses Multifocal pneumonia J18.9 Fever R50.9 Dyspnea R06.02 Dyspnea type: shortness of breath CLL (chronic lymphocytic leukemia) C91.10 [facility]45.909
[2021-11-12 11:57] LABS: ALC (manual) 124.98 K/uL (1.2-3.4); ANC (manual) 1.77 K/uL (1.4-6.5); Lymphocytes # (manual) 51.08 K/uL (1.2-3.4); Lymphocytes % (manual) 40.3 %; Neutrophils # (manual) 1.77 K/uL (1.4-6.5); Neutrophils % (manual) 1.4 %; Reactive Lymphocytes % (manual) 58.3 %; Smudge Cells Present
[2021-11-12] MEDS ORDERED: guaiFENesin/DEXTROM SYRUP 200MG/20MG 10ML UDC PO SCH (12:00)
[2021-11-12] MEDS ORDERED: Nursing to Pharmacy Communication SCH (14:45)
[2021-11-12] MEDS ORDERED: SALINE NASAL GEL (AYR) 14.1 GM TUBE TOP PRN (15:10)
[2021-11-12] MEDS ORDERED: guaiFENesin/CODEINE 100MG/10MG 5ML UDC PO SCH (15:45)
[2021-11-12] MEDS: guaiFENesin/CODEINE 100MG/10MG 5ML UDC PO SCH ×2 (16:47→21:20)
[2021-11-12] MEDS: ALBUT/IPRATROP 3MG/0.5MG NEB 3 ML VIAL NEB SCH (19:36)
[2021-11-13] MEDS: ALBUT/IPRATROP 3MG/0.5MG NEB 3 ML VIAL NEB SCH ×3 (00:08→12:38)
[2021-11-13] MEDS: guaiFENesin/CODEINE 100MG/10MG 5ML UDC PO SCH ×4 (03:54→21:37)
[2021-11-13] MEDS: levoFLOXacin/D5W 750 MG/150 ML BAG IV SCH (03:55)
[2021-11-13] MEDS: ASCORBIC ACID 500 MG TAB PO SCH (08:06)
[2021-11-13] MEDS: FERROUS SULFATE 325 MG TAB PO SCH (08:06)
[2021-11-13] MEDS: SACCHAROMYCES BOULARDII 250 MG CAP PO SCH (08:06)
[2021-11-13] MEDS: ZINC SULFATE 220 MG CAPSULE PO SCH (08:06)
[2021-11-13 08:07] LABS: Hematocrit (blood only) 27.2 % (42-52); Hemoglobin 8.9 g/dL (14.0-18.0); Mean Corpuscular Hemoglobin 33.1 pg (25-34); Mean Corpuscular Hgb Conc 32.7 g/dL (32-36); Mean Corpuscular Volume 101.1 fL (80-100); Mean Platelet Volume 10.4 fL (7.4-10.4); Platelet Count 289 K/uL (130-400); RDW Coefficient of Variation 15.2 % (11.5-14.5); Red Blood Count 2.69 M/uL (4.7-6.1); White Blood Count 120.01 K/uL (4.8-10.8)
[2021-11-13] MEDS: ASPIRIN 81 MG ECTAB PO SCH (08:07)
[2021-11-13] MEDS: CEROVITE ADV FORMULA TAB PO SCH (08:07)
[2021-11-13] MEDS: FLUTICASONE/VILANTEROL 200/25MCG 14 PUFFS/INHALER INH SCH (08:07)
[2021-11-13] MEDS: PANTOprazole 40 MG TAB PO SCH (08:07)
[2021-11-13] MEDS: FLUTICASONE PROPIONATE NA SPR 16 GM BTL NAE SCH (08:10)
[2021-11-13 08:33] LABS: BUN Creatinine Ratio 17.3 (10-20); Calcium 9.2 mg/dl (8.5-10.1); Creatinine Clr Calc Pharmacy 54.1 ml/min; Est GFR (African American) 75.2 ml/min; Est GFR (Non-African American) 64.9 ml/min
[2021-11-13 08:38] LABS: ALC (manual) 116.41 K/uL (1.2-3.4); Lymphocytes # (manual) 116.41 K/uL (1.2-3.4)
[2021-11-13 08:39] LABS: Smudge Cells Present
[2021-11-13] MEDS: ENOXAPARIN INJ 40 MG/0.4 ML SYR SQ SCH (10:44)
--- NOTE | 2021-11-13 14:59 | Pulmonology Progress Note ---
Date of Service November 13, 2021 Assessment & Plan (1) Multifocal pneumonia: (2) Fever: (3) Dyspnea: Dyspnea type: shortness of breath Qualified Code(s): R06.02 - Shortness of breath (4) CLL (chronic lymphocytic leukemia): (5) Asthma: Plan: 76-year-old male with a history of CLL who presented to the hospital with shortness of breath and fevers. He was found to have a very elevated white count. Patient appears to be favorably responding to Levaquin therapy and is presumed to have failed outpatient antibiotics. I discussed the role of bronchoscopy with the patient along with VATS lung biopsy. My recommendation at this time would be to pursue conservative therapy with antibiotics and then pursue bronchoscopic evaluation/VATS biopsy if no significant improvement in imaging in the near future. The differentials for the infiltrates and clinical picture are broad including bacterial pneumonia, atypical pneumonia, cryptogenic organizing pneumonia, leukemic infiltrates given his CLL history and other inflammatory lung conditions. Aspiration also remains a possibility given the bilateral lower lobe distribution. He did have lower lobe subpleural consolidations noted on a CT chest from 05/19/2021 at an outside hospital which may be indicative of chronic aspiration versus an interstitial lung disease that has now progressed. Will defer empiric prednisone therapy at this time unless there is a poor response. Will need follow up with Dr. Martins as an outpatient. Patient notes that he had a sputum culture completed in [facility] last week. Will attempt to obtain these results. Sputum culture here is pending. Pulmonary will continue to follow along with you. Thank you for the consult. Admission and Anticipated Discharge Date Admission Date: November 12, 2021 Subjective Patient seen and examined. was present at bedside. Patient notes that his shortness of breath and cough have improved some since hospital admission. He did have episodes of vomiting today. He notes that for the past few weeks he had low-grade fevers while at home. Denies any fevers today. No chest pain. He does have shortness of breath with moderate exertion. Denies any exposures to birds or feathers in the past. 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 No significant smoking history. Review of Systems Review of Systems: All systems reviewed & are unremarkable except as noted in Subjective Physical Exam Physical Exam: Constitutional: No acute distress HEENT: EOMI, PERRLA Respiratory system: Decreased air entry bilaterally, no wheeze, no rhonchi, positive crackles bilateral lower lobes CVS: S1-S2 positive Abdomen: Soft, nontender, nondistended, positive bowel sounds x4 Extremities: +2 pulses bilaterally radialis/ dorsalis pedis, no cyanosis, no edema Neuro: Awake alert oriented x3 Psych: Normal mood and affect G/U: No [place] Skin: no rashes, warm and dry Lymphatic: no cervical or axillary lymphadenopathy Results & Data Results & Data ([facility]) Vital Signs (Past 12 Hours) Vital Signs Temp Pulse Pulse Resp BP Pulse Ox 11/13/21 12:58 36.5 C 65 19 116/70 98 11/13/21 12:39 73 20 93 11/13/21 07:50 69 11/13/21 07:28 74 18 92 11/13/21 06:16 36.8 C 74 18 131/69 90 11/13/21 03:28 36.5 C 58 L 16 138/62 94 PG Care Time/CCT Total # of Minutes Spent Total Time Spent with Patient: Total time spent is greater than 50% in coordination of care (as documented) at patient's floor/unit and/or counseling patient: Coding Level of Care Code 47190 Subseq Hosp Care Lvl 3 Diagnoses Multifocal pneumonia J18.9 Fever R50.9 Dyspnea R06.02 Dyspnea type: shortness of breath CLL (chronic lymphocytic leukemia) C91.10 Asthma J45.909
[2021-11-13] MEDS ORDERED: ALBUT/IPRATROP 3MG/0.5MG NEB 3 ML VIAL NEB PRN (15:42)
--- NOTE | 2021-11-13 17:29 | Hospitalist Progress Note ---
Date of Service November 13, 2021 Assessment & Plan Plan: Multifocal Pneumonia -MRSA screen neg, viral panel negative -failed outpatient therapy -Symptoms improving on levaquin -sputum cultures ordered but patient unable to provide specimen. -appreciate pulmonology input CLL -sees Dr Pierre of Oncology -WBC here elevated: 137--> 120K today (outpatient it was 186K from 09/2021) History of TB -previously treated BPH -monitor for symptoms of retention Asthma -appears stable currently Chronic iron deficiency anemia -continue iron GERD -PPI DVT ppx SQ lovenox Admission and Anticipated Discharge Date Admission Date: November 12, 2021 Subjective Breathing feels better Cough improved but non productive Remains afebrile Physical Exam Physical Exam: Appears stated age, no acute distress Respiratory: Breathing comfortably on room air, no wheezing/rhonchi/rales Cardiovascular: regular rate and rhythm, no murmurs/rubs/gallops Gastrointestinal (Abdomen): soft, non tender, non distended Musculoskeletal: no edema Neurologic: awake, alert, spontaneously moving extremities Results & Data Results & Data ([facility]) Vital Signs (Past 12 Hours) Vital Signs Temp Pulse Pulse Pulse Resp BP Pulse Ox 11/13/21 16:04 36.8 C 67 16 122/58 L 94 11/13/21 15:22 72 11/13/21 12:58 36.5 C 65 19 116/70 98 11/13/21 12:39 73 20 93 11/13/21 07:50 69 11/13/21 07:28 74 18 92 11/13/21 06:16 36.8 C 74 18 131/69 90 Laboratory Results Short CBC 11/13/21 Range/Units 07:31 WBC 120.01 H* (4.8-10.8) K/uL Hgb 8.9 L (14.0-18.0) g/dL Hct 27.2 L (42-52) % Plt Count 289 (130-400) K/uL BMP 11/13/21 07:31 Sodium 138 Potassium 4.0 Chloride 106 Carbon Dioxide 26 BUN 19 Creatinine 1.10 Glucose 106 H Calcium 9.2 Medications Administered Current Inpatient Medications Acetaminophen (Acetaminophen 325 Mg Tab) 650 mg PO Q4H PRN PRN Reason: Pain or Fever Stop: 12/12/21 10:24 Albuterol (Albut/Ipratrop 3mg/0.5mg Neb 3 Ml Vial) 3 ml NEB Q6R PRN; Protocol PRN Reason: Shortness Of Breath Or Wheezing Stop: 12/12/21 18:59 Ascorbic Acid (Ascorbic Acid 500 Mg Tab) 500 mg PO DAILY [facility] Stop: 12/12/21 10:44 Last Admin: 11/13/21 08:06 Dose: 500 mg Documented by: Aspirin (Aspirin 81 Mg Ectab) 81 mg PO DAILY [facility] Stop: 12/12/21 10:44 Last Admin: 11/13/21 08:07 Dose: 81 mg Documented by: Enoxaparin Sodium (Enoxaparin Inj 40 Mg/0.4 Ml Syr) 40 mg SQ Q24H [facility] Stop: 12/12/21 10:44 Last Admin: 11/13/21 10:44 Dose: Not Given Documented by: Ferrous Sulfate (Ferrous Sulfate 325 Mg Tab) 325 mg PO DAILY [facility] Stop: 12/12/21 10:44 Last Admin: 11/13/21 08:06 Dose: 325 mg Documented by: Fluticasone Propionate (Fluticasone Propionate Na Spr 16 Gm Btl) 2 sprays SOPHIA DAILY [facility] Stop: 12/12/21 10:44 Last Admin: 11/13/21 08:10 Dose: Not Given Documented by: Fluticasone/Vilanterol (Fluticasone/Vilanterol 200/25mcg 14 Puffs/Inhaler) 1 puffs INH DAILY [facility] Stop: 12/12/21 10:44 Last Admin: 11/13/21 08:07 Dose: 1 puffs Documented by: Guaifenesin/Codeine Phosphate (Guaifenesin/Codeine 100mg/10mg 5ml Udc) 5 ml PO Q6H [facility] Stop: 12/12/21 15:59 Last Admin: 11/13/21 16:37 Dose: 5 ml Documented by: Levofloxacin/Dextrose (Levaquin/D5w) 750 mg in 150 mls @ 100 mls/hr IV Q24H [facility]; Protocol Stop: 11/20/21 03:59 Last Infusion: 11/13/21 05:34 Dose: Infused Documented by: Multivitamins/Minerals (Cerovite Adv Formula Tab) 1 tab PO DAILY [facility] Stop: 12/12/21 10:44 Last Admin: 11/13/21 08:07 Dose: 1 tab Documented by: Nitroglycerin (Nitroglycerin Sl 0.4 Mg/Tab Tab) 0.4 mg SL UD PRN PRN Reason: Chest Pain Stop: 12/12/21 10:24 Pantoprazole Sodium (Pantoprazole 40 Mg Tab) 40 mg PO DAILY [facility] Stop: 12/12/21 10:44 Last Admin: 11/13/21 08:07 Dose: 40 mg Documented by: Polyethylene Glycol (Polyethylene (Miralax) 17 Gm Pack) 17 gm PO DAILY PRN PRN Reason: Constipation Stop: 12/12/21 10:24 Saccharomyces Boulardii (Saccharomyces Boulardii 250 Mg Cap) 250 mg PO DAILY [facility] Stop: 12/13/21 08:59 Last Admin: 11/13/21 08:06 Dose: 250 mg Documented by: Sodium Chloride (Saline Nasal Gel ([place]) 14.1 Gm Tube) 1 appln TOP DAILY PRN PRN Reason: BANDAGE CHANGE Stop: 12/12/21 15:09 Last Admin: 11/12/21 15:27 Dose: 1 appln Documented by: Zinc Sulfate (Zinc Sulfate 220 Mg Capsule) 220 mg PO DAILY [facility] Stop: 12/12/21 10:44 Last Admin: 11/13/21 08:06 Dose: 220 mg Documented by:
[2021-11-14] MEDS: levoFLOXacin/D5W 750 MG/150 ML BAG IV SCH (03:29)
[2021-11-14] MEDS: guaiFENesin/CODEINE 100MG/10MG 5ML UDC PO SCH ×4 (03:29→21:00)
[2021-11-14 07:09] LABS: Hematocrit (blood only) 26.9 % (42-52); Mean Corpuscular Hemoglobin 33.8 pg (25-34); Mean Corpuscular Hgb Conc 33.5 g/dL (32-36); Mean Corpuscular Volume 101.1 fL (80-100); Mean Platelet Volume 10.1 fL (7.4-10.4); Platelet Count 286 K/uL (130-400); RDW Coefficient of Variation 15.5 % (11.5-14.5); RDW Standard Deviation 55.8 fL (36.4-46.3); Red Blood Count 2.66 M/uL (4.7-6.1); White Blood Count 128.34 K/uL (4.8-10.8)
[2021-11-14 07:40] LABS: ALC (manual) 127.06 K/uL (1.2-3.4); ANC (manual) 1.28 K/uL (1.4-6.5); Lymphocytes # (manual) 127.06 K/uL (1.2-3.4); Neutrophils # (manual) 1.28 K/uL (1.4-6.5)
[2021-11-14] MEDS: PANTOprazole 40 MG TAB PO SCH (08:36)
[2021-11-14] MEDS: ASPIRIN 81 MG ECTAB PO SCH (08:36)
[2021-11-14] MEDS: CEROVITE ADV FORMULA TAB PO SCH (08:36)
[2021-11-14] MEDS: ZINC SULFATE 220 MG CAPSULE PO SCH (08:36)
[2021-11-14] MEDS: FERROUS SULFATE 325 MG TAB PO SCH (08:37)
[2021-11-14] MEDS: SACCHAROMYCES BOULARDII 250 MG CAP PO SCH (08:37)
[2021-11-14] MEDS: FLUTICASONE/VILANTEROL 200/25MCG 14 PUFFS/INHALER INH SCH (08:37)
[2021-11-14] MEDS: ASCORBIC ACID 500 MG TAB PO SCH (08:37)
[2021-11-14] MEDS: FLUTICASONE PROPIONATE NA SPR 16 GM BTL NAE SCH (08:38)
[2021-11-14] MEDS: ENOXAPARIN INJ 40 MG/0.4 ML SYR SQ SCH (10:31)
[2021-11-14] MEDS ORDERED: IMMUNE GLOBULIN (HUMAN) SOLN IV ONE (10:39)
[2021-11-14] MEDS: Octagam 10% IVIG 10 gram bottle IV SCH ×3 (13:54→16:45)
--- NOTE | 2021-11-14 14:59 | Hospitalist Progress Note ---
Date of Service November 14, 2021 Assessment & Plan Plan: Multifocal Pneumonia -MRSA screen neg, viral panel negative -failed outpatient therapy -Sputum culture from outpatient provider was received today and reviewed--> positive for achromobacter denitrificans. Multi drug resistance pattern-- Intermittent to Levaquin. Sensitive to: Zosyn, Amikacin, Gentamicin, imipenem, tobramycin -Will place Tele ID consult for antibiotic recommendations. In the meantime, will d/c Levaquin and start zosyn. CLL Hypogammaglobulinemia -WBC here elevated: 137--> 120--> 128K today (outpatient it was 186K from 09/2021) -sees Dr Pierre of Oncology--I discussed with Dr Pierre today, patient missed his last dose of IVIG due to recent illness--> will give IVIG 30gm while here. With regards to his CLL, no plan for treatment while here. History of TB -previously treated BPH -monitor for symptoms of retention Asthma -appears stable currently Chronic iron deficiency anemia -continue iron GERD -PPI DVT ppx SQ lovenox Care plan was discussed with patient who requested I call his . Mrs Rocha was called and also updated on care plan. All questions were answered Admission and Anticipated Discharge Date Admission Date: November 12, 2021 Subjective Remains afebrile, No issues overnight Physical Exam Physical Exam: Laying in bed, no acute distress Respiratory: breathing comfortably on room air, no wheezing/rhonchi Cardiovascular: regular rate and rhythm, no murmurs/rubs/gallops Gastrointestinal (Abdomen): soft, non tender Musculoskeletal: no edema Neurologic: awake, alert, spontaneously moving extremities Results & Data Results & Data ([facility]) Vital Signs (Past 12 Hours) Vital Signs Temp Pulse Pulse Resp BP Pulse Ox 11/14/21 14:29 36.4 C L 69 18 122/78 92 11/14/21 14:10 36.6 C 66 18 120/67 91 11/14/21 11:35 36.6 C 70 18 130/69 91 11/14/21 07:51 36.9 C 66 18 129/69 91 11/14/21 07:19 66 11/14/21 03:07 36.9 C 74 18 136/74 95 Laboratory Results Short CBC 11/14/21 Range/Units 06:33 WBC 128.34 H* (4.8-10.8) K/uL Hgb 9.0 L (14.0-18.0) g/dL Hct 26.9 L (42-52) % Plt Count 286 (130-400) K/uL Medications Administered Current Inpatient Medications Acetaminophen (Acetaminophen 325 Mg Tab) 650 mg PO Q4H PRN PRN Reason: Pain or Fever Stop: 12/12/21 10:24 Albuterol (Albut/Ipratrop 3mg/0.5mg Neb 3 Ml Vial) 3 ml NEB Q6R PRN; Protocol PRN Reason: Shortness Of Breath Or Wheezing Stop: 12/12/21 18:59 Ascorbic Acid (Ascorbic Acid 500 Mg Tab) 500 mg PO DAILY [facility] Stop: 12/12/21 10:44 Last Admin: 11/14/21 08:37 Dose: 500 mg Documented by: Aspirin (Aspirin 81 Mg Ectab) 81 mg PO DAILY [facility] Stop: 12/12/21 10:44 Last Admin: 11/14/21 08:36 Dose: 81 mg Documented by: Enoxaparin Sodium (Enoxaparin Inj 40 Mg/0.4 Ml Syr) 40 mg SQ Q24H [facility] Stop: 12/12/21 10:44 Last Admin: 11/14/21 10:31 Dose: Not Given Documented by: Ferrous Sulfate (Ferrous Sulfate 325 Mg Tab) 325 mg PO DAILY [facility] Stop: 12/12/21 10:44 Last Admin: 11/14/21 08:37 Dose: 325 mg Documented by: Fluticasone Propionate (Fluticasone Propionate Na Spr 16 Gm Btl) 2 sprays SOPHIA DAILY [facility] Stop: 12/12/21 10:44 Last Admin: 11/14/21 08:38 Dose: Not Given Documented by: Fluticasone/Vilanterol (Fluticasone/Vilanterol 200/25mcg 14 Puffs/Inhaler) 1 puffs INH DAILY [facility] Stop: 12/12/21 10:44 Last Admin: 11/14/21 08:37 Dose: 1 puffs Documented by: Guaifenesin/Codeine Phosphate (Guaifenesin/Codeine 100mg/10mg 5ml Udc) 5 ml PO Q6H [facility] Stop: 12/12/21 15:59 Last Admin: 11/14/21 10:29 Dose: 5 ml Documented by: Levofloxacin/Dextrose (Levaquin/D5w) 750 mg in 150 mls @ 100 mls/hr IV Q24H [facility] ; Protocol Stop: 11/20/21 03:59 Last Infusion: 11/14/21 05:00 Dose: Infused Documented by: Immune Globulin (Octagam 10%) 100 mls @ 39.6 mls/hr IV Q2H [facility]; Protocol Stop: 11/14/21 17:29 Last Admin: 11/14/21 13:54 Dose: 1 mg/kg/min, 39.6 mls/hr Documented by: Multivitamins/Minerals (Cerovite Adv Formula Tab) 1 tab PO DAILY [facility] Stop: 12/12/21 10:44 Last Admin: 11/14/21 08:36 Dose: 1 tab Documented by: Nitroglycerin (Nitroglycerin Sl 0.4 Mg/Tab Tab) 0.4 mg SL UD PRN PRN Reason: Chest Pain Stop: 12/12/21 10:24 Pantoprazole Sodium (Pantoprazole 40 Mg Tab) 40 mg PO DAILY [facility] Stop: 12/12/21 10:44 Last Admin: 11/14/21 08:36 Dose: 40 mg Documented by: Polyethylene Glycol (Polyethylene (Miralax) 17 Gm Pack) 17 gm PO DAILY PRN PRN Reason: Constipation Stop: 12/12/21 10:24 Saccharomyces Boulardii (Saccharomyces Boulardii 250 Mg Cap) 250 mg PO DAILY [facility] Stop: 12/13/21 08:59 Last Admin: 11/14/21 08:37 Dose: 250 mg Documented by: Sodium Chloride (Saline Nasal Gel ([place]) 14.1 Gm Tube) 1 appln TOP DAILY PRN PRN Reason: BANDAGE CHANGE Stop: 12/12/21 15:09 Last Admin: 11/12/21 15:27 Dose: 1 appln Documented by: Zinc Sulfate (Zinc Sulfate 220 Mg Capsule) 220 mg PO DAILY [facility] Stop: 12/12/21 10:44 Last Admin: 11/14/21 08:36 Dose: 220 mg Documented by:
[2021-11-14] MEDS ORDERED: PIPERACILL/TAZOBAC CONSULT ACTIVE PRN (15:39)
[2021-11-14] MEDS ORDERED: PIPERACILLIN/TAZOBACTAM 4.5 GM in DEXTROSE 5% 100 ML IV ONE (16:30)
--- NOTE | 2021-11-14 18:32 | Pulmonology Progress Note ---
Date of Service November 14, 2021 Assessment & Plan (1) Multifocal pneumonia: (2) Fever: (3) Dyspnea: Dyspnea type: shortness of breath Qualified Code(s): R06.02 - Shortness of breath (4) CLL (chronic lymphocytic leukemia): (5) Asthma: Plan: 76-year-old male with a history of CLL who presented to the hospital with shortness of breath and fevers. He was found to have a very elevated white count. Patient appears to be favorably responding to Levaquin therapy and is presumed to have failed outpatient antibiotics. I discussed the role of bronchoscopy with the patient along with VATS lung biopsy. My recommendation at this time would be to pursue conservative therapy with antibiotics and then pursue bronchoscopic evaluation/VATS biopsy if no significant improvement in imaging in the near future. The differentials for the infiltrates and clinical picture are broad including bacterial pneumonia, atypical pneumonia, cryptogenic organizing pneumonia, leukemic infiltrates given his CLL history and other inflammatory lung conditions. Aspiration also remains a possibility given the bilateral lower lobe distribution. He did have lower lobe subpleural consolidations noted on a CT chest from 05/19/2021 at an outside hospital which may be indicative of chronic aspiration versus an interstitial lung disease that has now progressed. Will defer empiric prednisone therapy at this time unless there is a poor response. Will need follow up with Dr. Martins as an outpatient. Sputum culture from 11/10/2021 at [facility] demonstrated heavy growth of Achromobacter dentrificicans which is notable for being a multidrug-resistant organism given its resistance to aztreonam, ciprofloxacin, Bactrim and cefepime. It is intermediately sensitive to ceftazidime, levofloxacin. It does appear to be sensitive to Zosyn, tetracycline, imipenem, gentamicin and amikacin. The patient was appropriately changed to Zosyn after discussion with hospitalist. Infectious disease consult was recommended. Contact isolation precautions were recommended. Interestingly our sputum cultures at [facility] have been unremarkable thus far. Pulmonary will continue to follow along with you. Thank you for the consult. Admission and Anticipated Discharge Date Admission Date: November 12, 2021 Subjective Patient seen and examined. Continues with a significant mixed productive and nonproductive cough with speaking. Underwent speech evaluation without any signs of aspiration per the patient. No fevers or chills overnight. Currently on room air saturating at 93%. Review of Systems Review of Systems: All systems reviewed & are unremarkable except as noted in HPI & below Physical Exam Physical Exam: Constitutional: No acute distress HEENT: EOMI, PERRLA Respiratory system: Decreased air entry bilaterally, no wheeze, no rhonchi, positive crackles bilateral lower lobes CVS: S1-S2 positive Abdomen: Soft, nontender, nondistended, positive bowel sounds x4 Extremities: +2 pulses bilaterally radialis/ dorsalis pedis, no cyanosis, no edema Neuro: Awake alert oriented x3 Psych: Normal mood and affect G/U: No [place] Skin: no rashes, warm and dry Lymphatic: no cervical or axillary lymphadenopathy Results & Data Results & Data ([facility]) Vital Signs (Past 12 Hours) Vital Signs Temp Pulse Pulse Resp BP Pulse Ox 11/14/21 15:36 36.6 C 67 18 116/65 93 11/14/21 14:29 36.4 C L 69 18 122/78 92 11/14/21 14:10 36.6 C 66 18 120/67 91 11/14/21 11:35 36.6 C 70 18 130/69 91 11/14/21 07:51 36.9 C 66 18 129/69 91 11/14/21 07:19 66 PG Care Time/CCT Total # of Minutes Spent Total Time Spent with Patient: Total time spent is greater than 50% in coordination of care (as documented) at patient's floor/unit and/or counseling patient: Coding Level of Care Code 58175 Subseq Hosp Care Lvl 3 Diagnoses Multifocal pneumonia J18.9 Fever R50.9 Dyspnea R06.02 Dyspnea type: shortness of breath CLL (chronic lymphocytic leukemia) C91.10 Asthma J45.909
[2021-11-14] MEDS: PIPERACILLIN/TAZOBACTAM 3.375 GM in DEXTROSE 5% 100 ML IV SCH (21:02)
[2021-11-15] MEDS: guaiFENesin/CODEINE 100MG/10MG 5ML UDC PO SCH ×4 (04:56→21:06)
[2021-11-15] MEDS: PIPERACILLIN/TAZOBACTAM 3.375 GM in DEXTROSE 5% 100 ML IV SCH ×3 (05:52→21:06)
[2021-11-15] MEDS: FLUTICASONE/VILANTEROL 200/25MCG 14 PUFFS/INHALER INH SCH (08:24)
[2021-11-15] MEDS: ASCORBIC ACID 500 MG TAB PO SCH (08:26)
[2021-11-15] MEDS: FLUTICASONE PROPIONATE NA SPR 16 GM BTL NAE SCH (08:26)
[2021-11-15] MEDS: ZINC SULFATE 220 MG CAPSULE PO SCH (08:27)
[2021-11-15] MEDS: SACCHAROMYCES BOULARDII 250 MG CAP PO SCH (08:28)
[2021-11-15] MEDS: PANTOprazole 40 MG TAB PO SCH (08:28)
[2021-11-15] MEDS: ASPIRIN 81 MG ECTAB PO SCH (08:28)
[2021-11-15] MEDS: FERROUS SULFATE 325 MG TAB PO SCH (08:28)
[2021-11-15] MEDS: CEROVITE ADV FORMULA TAB PO SCH (08:28)
[2021-11-15 08:30] LABS: Hematocrit (blood only) 29.6 % (42-52); Hemoglobin 9.7 g/dL (14.0-18.0); Mean Corpuscular Hgb Conc 32.8 g/dL (32-36); Mean Corpuscular Volume 100.7 fL (80-100); Mean Platelet Volume 10.3 fL (7.4-10.4); Platelet Count 352 K/uL (130-400); RDW Coefficient of Variation 15.5 % (11.5-14.5); RDW Standard Deviation 56.1 fL (36.4-46.3); Red Blood Count 2.94 M/uL (4.7-6.1); White Blood Count 150.41 K/uL (4.8-10.8)
[2021-11-15 08:44] LABS: BUN Creatinine Ratio 17.5 (10-20); Calcium 9.7 mg/dl (8.5-10.1); Creatinine Clr Calc Pharmacy 46.6 ml/min; Est GFR (African American) 63.8 ml/min; Potassium 4.5 mmol/L (3.5-5.1)
[2021-11-15 09:11] LABS: ANC (manual) 3.01 K/uL (1.4-6.5); Neutrophils # (manual) 3.01 K/uL (1.4-6.5); Smudge Cells Present
[2021-11-15] MEDS: ENOXAPARIN INJ 40 MG/0.4 ML SYR SQ SCH (10:23)
--- NOTE | 2021-11-15 11:37 | Hospitalist Progress Note ---
Date of Service November 15, 2021 Assessment & Plan (1) Leukemoid reaction: (2) Leukocytosis: (3) Dyspnea: (4) Anemia: (5) CLL (chronic lymphocytic leukemia): (6) Multifocal pneumonia: (7) Abnormal chest CT: (8) Asthma: (9) History of TB (tuberculosis): (10) Fever: Plan: Multifocal Pneumonia -MRSA screen neg, viral panel negative -failed outpatient therapy -Sputum culture from outpatient provider was received today and reviewed--> positive for achromobacter denitrificans. Multi drug resistance pattern-- Intermittent to Levaquin. Sensitive to: Zosyn, Amikacin, Gentamicin, imipenem, tobramycin -ID consult for antibiotic recommendations. Zosyn. CLL Hypogammaglobulinemia -WBC here elevated: 137--> 120--> 128K today (outpatient it was 186K from 09/2021) -sees Dr Pierre of Oncology--I discussed with Dr Pierre today, patient missed his last dose of IVIG due to recent illness-->will give IVIG 30gm while here. With regards to his CLL, no plan for treatment while here. History of TB -previously treated BPH -monitor for symptoms of retention Asthma -appears stable currently Chronic iron deficiency anemia -continue iron GERD -PPI DVT ppx SQ lovenox ROS-No Headache, No Visual Changes, No Nausea, No Vomiting, No Fever, No Chills, No Neck Pain or Stiffness, No Chest Pain, No Palpitations, No SOB, No [place], No Cough, No Sputum, No Wheezing, No Abdominal Pain, No Diarrhea, No Hematemesis, No Hemoptysis, No Unexpected Weight Loss, No Flank pain, No Melena, No Hematochezia, No Frequency, No Urgency, No Burning, No Hematuria, No Rashes, No Diaphoresis. Appetite is Normal Physical Exam Gen-AAO x 3, NAD, Afebrile Head-NCAT, EOMI, PERRLA, Anicteric Sclera, No Posterior Pharyngeal Erythema Neck-Supple, No JVD, No Thyromegaly, No Masses, No LAD, No Bruits Lungs-Clear to Auscultation Bilaterally, No Rales, No Rhonchi, No Wheezing, No Crepitus Chest-No S4, +S1, +S2, No S3, No Murmurs, No Rubs, No Gallops, No Ectopy Abdomen-Soft, Bowel Sounds Present, Non Tender, Non Distended, No Hepatomegaly, No Splenomegaly, No Palpable Masses, No Rebound, No Rigidity, No Guarding Musculoskeletal-Full Range of Motion Bilaterally, No CVAT Extremities-No Cyanosis, No Clubbing, No Edema Nuero-Cranial Nerves II-XII grossly intact, Motor WNL, DTRs WNL, Strength WNL, Non Focal Psych-Normal Mood Admission and Anticipated Discharge Date Admission Date: November 12, 2021 Results & Data Results & Data ([facility]) Vital Signs (Past 12 Hours) Vital Signs Temp Pulse Pulse Resp BP Pulse Ox 11/15/21 11:25 36.5 C 63 18 107/57 L 92 11/15/21 07:47 36.5 C 61 18 117/67 94 11/15/21 07:39 59 L 11/15/21 03:09 37 C 60 16 122/65 95 Laboratory Results Labs reviewed (1) Leukocytosis Leukocytosis type: unspecified Qualified Code(s): D72.829 - Elevated white blood cell count, unspecified (2) Dyspnea Dyspnea type: shortness of breath Qualified Code(s): R06.02 - Shortness of breath (3) Anemia Anemia type: unspecified type Qualified Code(s): D64.9 - Anemia, unspecified
--- NOTE | 2021-11-15 11:50 | Pulmonology Progress Note ---
Date of Service November 15, 2021 Assessment & Plan (1) Multifocal pneumonia: (2) Fever: (3) Dyspnea: Dyspnea type: shortness of breath Qualified Code(s): R06.02 - Shortness of breath (4) CLL (chronic lymphocytic leukemia): (5) Asthma: Plan: Attending: Dr. Rogers Impression: 76-year-old male with a history of CLL who presented to the hospital with shortness of breath and fevers. He was found to have a very elevated white count. Patient continues to have leukocytosis. ID consultation via zoom expected later today. Patient showed improvement with Levaquin but then sputum culture from [facility] as mentioned below. Patient changed to Zosyn and ID was consulted. Expect Zoom consult with ID later today. Role of bronchoscopy was discussed with the patient along with VATS lung biopsy. Reinforced that this will be discussed after we have a chance to review ID recommendations. The differentials for the infiltrates and clinical picture are broad including bacterial pneumonia, atypical pneumonia, cryptogenic organizing pneumonia, leukemic infiltrates given his CLL history and other inflammatory lung conditions. FEES study completed 11/14/2021 not suggestive of aspiration. Lower lobe subpleural consolidations noted on a CT chest from 05/19/2021 at an outside hospital which may be indicative of chronic aspiration versus an interstitial lung disease that has now progressed. Will defer empiric prednisone therapy at this time unless there is a poor response. Will need follow up with Dr. Martins as an outpatient. Sputum culture from 11/10/2021 at [facility] demonstrated heavy growth of Achromobacter dentrificicans which is notable for being a multidrug-resistant organism given its resistance to aztreonam, ciprofloxacin, Bactrim and cefepime. It is intermediately sensitive to ceftazidime, levofloxacin. It does appear to be sensitive to Zosyn, tetracycline, imipenem, gentamicin and amikacin. The patient was appropriately changed to Zosyn after discussion with hospitalist. Infectious disease consult was recommended. Contact isolation precautions were recommended. Interestingly our sputum cultures at [facility] have been unremarkable thus far. Thank you for including us in the care of this patient. We will continue to follow along with you at this time. Admission and Anticipated Discharge Date Admission Date: November 12, 2021 Subjective Attending: Dr. Rogers Patient seen and examined in room 276. He continues to have cough with some minimal sputum production. He has no fever or chills. He has no chest pain or tightness. He is in no respiratory distress. He has no use of accessory muscles. He denies any new complaints. Awaiting ID consultation which should be arranged resume it later today. Review of Systems Review of Systems: All systems reviewed & are unremarkable except as noted in Subjective Physical Exam Physical Exam: GENERAL : No acute distress EYES: No icterus, gaze conjugate NOSE: No evidence of epistaxis MOUTH: No lesions or candidiasis NECK: Supple LUNGS: Bibasilar crackles. No rhonchi or bronchospasm appreciated. HEART: Regular, rate controlled ABDOMEN: Soft, NT, ND, BS Present EXTREMITIES: No LE edema, pedal pulses intact NEURO: A&OX3 Results & Data Results & Data ([facility]) Vital Signs (Past 12 Hours) Vital Signs Temp Pulse Pulse Resp BP Pulse Ox 11/15/21 11:25 36.5 C 63 18 107/57 L 92 11/15/21 07:47 36.5 C 61 18 117/67 94 11/15/21 07:39 59 L 11/15/21 03:09 37 C 60 16 122/65 95 Laboratory Results 11/15/21 08:04 11/15/21 08:04 PG Care Time/CCT Total # of Minutes Spent Total Time Spent with Patient: Total time spent is greater than 50% in coordination of care (as documented) at patient's floor/unit and/or counseling patient:30 minutes - lengthy discussion at bedside with the patient Coding Level of Care Code 88912 Subseq Hosp Care Lvl 2 Diagnoses Multifocal pneumonia J18.9 Fever R50.9 Dyspnea R06.02 Dyspnea type: shortness of breath CLL (chronic lymphocytic leukemia) C91.10 Asthma J45.909 Time Spent (min) 30
[2021-11-15] MEDS: POLYETHYLENE (MIRALAX) 17 GM PACK PO PRN (21:06)
[2021-11-16] MEDS: guaiFENesin/CODEINE 100MG/10MG 5ML UDC PO SCH ×4 (04:51→21:24)
[2021-11-16] MEDS: PIPERACILLIN/TAZOBACTAM 3.375 GM in DEXTROSE 5% 100 ML IV SCH ×3 (04:51→21:24)
[2021-11-16 07:09] LABS: INR 1.1 (0.9-1.1); Prothrombin Time 11.3 Seconds (9.0-12.0)
[2021-11-16 07:15] LABS: Albumin Globulin Ratio 0.9 (0.9-2); Albumin Level 3.1 gm/dl (3.4-5.0); BUN Creatinine Ratio 19.7 (10-20); Bilirubin,Total 0.3 mg/dl (0.2-1.0); Calcium 9.5 mg/dl (8.5-10.1); Creatinine Clr Calc Pharmacy 41.4 ml/min; Est GFR (African American) 55.2 ml/min; Est GFR (Non-African American) 47.6 ml/min; Globulin 3.3 gm/dl (2.5-4.0); Potassium 4.2 mmol/L (3.5-5.1); Total Protein 6.4 gm/dl (6.0-8.3)
[2021-11-16 07:34] LABS: Hematocrit (blood only) 27.8 % (42-52); Hemoglobin 9.7 g/dL (14.0-18.0); Mean Corpuscular Hgb Conc 34.9 g/dL (32-36); Mean Corpuscular Volume 100.4 fL (80-100); Mean Platelet Volume 10.2 fL (7.4-10.4); Platelet Count 309 K/uL (130-400); RDW Standard Deviation 54.9 fL (36.4-46.3); Red Blood Count 2.77 M/uL (4.7-6.1); White Blood Count 144.66 K/uL (4.8-10.8)
[2021-11-16 07:40] LABS: ANC (manual) 1.16 K/uL (1.4-6.5); Lymphocytes % (manual) 99.2 %; Neutrophils # (manual) 1.16 K/uL (1.4-6.5); Neutrophils % (manual) 0.8 %; Smudge Cells Present
[2021-11-16] MEDS: FLUTICASONE PROPIONATE NA SPR 16 GM BTL NAE SCH (10:34)
[2021-11-16] MEDS: FLUTICASONE/VILANTEROL 200/25MCG 14 PUFFS/INHALER INH SCH (10:34)
[2021-11-16] MEDS: ASCORBIC ACID 500 MG TAB PO SCH (10:35)
[2021-11-16] MEDS: SACCHAROMYCES BOULARDII 250 MG CAP PO SCH (10:35)
[2021-11-16] MEDS: FERROUS SULFATE 325 MG TAB PO SCH (10:35)
[2021-11-16] MEDS: ZINC SULFATE 220 MG CAPSULE PO SCH (10:35)
[2021-11-16] MEDS: PANTOprazole 40 MG TAB PO SCH (10:36)
[2021-11-16] MEDS: ASPIRIN 81 MG ECTAB PO SCH (10:36)
[2021-11-16] MEDS: CEROVITE ADV FORMULA TAB PO SCH (10:36)
[2021-11-16] MEDS: ENOXAPARIN INJ 40 MG/0.4 ML SYR SQ SCH (10:38)
--- NOTE | 2021-11-16 11:15 | Hospitalist Progress Note ---
Date of Service November 16, 2021 Assessment & Plan (1) Leukemoid reaction: (2) Leukocytosis: (3) Dyspnea: (4) Anemia: (5) CLL (chronic lymphocytic leukemia): (6) Multifocal pneumonia: (7) Abnormal chest CT: (8) Asthma: (9) History of TB (tuberculosis): (10) Fever: Plan: Multifocal Pneumonia -MRSA screen neg, viral panel negative, AFB ordered, Legionella ordered -failed outpatient therapy -Sputum culture from outpatient provider --> positive for achromobacter denitrificans. Multi drug resistance pattern-- Sensitive to: Zosyn, Amikacin, Gentamicin, imipenem, tobramycin -ID consult for antibiotic recommendations. Zosyn 3.375 g IV Q8H, not sure of stop date CLL Hypogammaglobulinemia -WBC here elevated: 137--> 120--> 128K today (outpatient it was 186K from 09/2021) -sees Dr Pierre of Oncology--patient missed his last dose of IVIG due to recent illness--> IVIG 30gm while here. With regards to his CLL, no plan for treatment while here. History of TB -previously treated, Check AFB BPH -monitor for symptoms of retention Asthma -appears stable currently Chronic iron deficiency anemia -continue iron GERD -PPI DVT ppx SQ lovenox Labs Checked ROS-No Headache, No Visual Changes, No Nausea, No Vomiting, No Fever, No Chills, No Neck Pain or Stiffness, No Chest Pain, No Palpitations, No SOB, No [place], No Cough, No Sputum, No Wheezing, No Abdominal Pain, No Diarrhea, No Hematemesis, No Hemoptysis, No Unexpected Weight Loss, No Flank pain, No Melena, No Hematochezia, No Frequency, No Urgency, No Burning, No Hematuria, No Rashes, No Diaphoresis. Appetite is Normal Physical Exam Gen-AAO x 3, NAD, Afebrile Head-NCAT, EOMI, PERRLA, Anicteric Sclera, No Posterior Pharyngeal Erythema Neck-Supple, No JVD, No Thyromegaly, No Masses, No LAD, No Bruits Lungs-Clear to Auscultation Bilaterally, No Rales, No Rhonchi, No Wheezing, No Crepitus Chest-No S4, +S1, +S2, No S3, No Murmurs, No Rubs, No Gallops, No Ectopy Abdomen-Soft, Bowel Sounds Present, Non Tender, Non Distended, No Hepatomegaly, No Splenomegaly, No Palpable Masses, No Rebound, No Rigidity, No Guarding Musculoskeletal-Full Range of Motion Bilaterally, No CVAT Extremities-No Cyanosis, No Clubbing, No Edema Nuero-Cranial Nerves II-XII grossly intact, Motor WNL, DTRs WNL, Strength WNL, Non Focal Psych-Normal Mood Admission and Anticipated Discharge Date Admission Date: November 12, 2021 Results & Data Results & Data ([facility]) Vital Signs (Past 12 Hours) Vital Signs Temp Pulse Resp BP Pulse Ox 11/16/21 07:21 36.9 C 62 16 144/73 H 93 (1) Leukocytosis Leukocytosis type: unspecified Qualified Code(s): D72.829 - Elevated white blood cell count, unspecified (2) Dyspnea Dyspnea type: shortness of breath Qualified Code(s): R06.02 - Shortness of breath (3) Anemia Anemia type: unspecified type Qualified Code(s): D64.9 - Anemia, unspecified
[2021-11-16] MEDS: OXYMETAZOLINE 0.05% 30 ML BTL SCH (13:26)
--- NOTE | 2021-11-16 14:13 | Pulmonology Progress Note ---
Date of Service November 16, 2021 Assessment & Plan (1) Multifocal pneumonia: (2) Fever: (3) Dyspnea: Dyspnea type: shortness of breath Qualified Code(s): R06.02 - Shortness of breath (4) CLL (chronic lymphocytic leukemia): (5) Asthma: Plan: Attending: Dr. Rogers Impression: 76-year-old male with a history of CLL who presented to the hospital with shortness of breath and fevers. He was found to have a very elevated white count. Patient continues to have leukocytosis. ID consultation via zoom completed yesterday. Patient showed improvement with Levaquin but then sputum culture from [facility] as mentioned below. Patient changed to Zosyn and ID was consulted. Expect Zoom consult with ID later today. Role of bronchoscopy was discussed with the patient along with VATS lung biopsy. Reinforced that this will be discussed after we have a chance to review ID recommendations. The differentials for the infiltrates and clinical picture are broad including bacterial pneumonia, atypical pneumonia, cryptogenic organizing pneumonia, leukemic infiltrates given his CLL history and other inflammatory lung conditions. FEES study completed 11/14/2021 not suggestive of aspiration. Would still continue to suggest aspiration precautions. Continue Zosyn IV. Advise primary team to contact ID for length of treatment. Lower lobe subpleural consolidations noted on a CT chest from 05/19/2021 at an outside hospital which may be indicative of chronic aspiration versus an interstitial lung disease that has now progressed. Will defer empiric prednisone therapy at this time unless there is a poor response. Will need follow up with Dr. Martins as an outpatient. Sputum culture from 11/10/2021 at [facility] demonstrated heavy growth of Achromobacter dentrificicans which is notable for being a multidrug-resistant organism given its resistance to aztreonam, ciprofloxacin, Bactrim and cefepime. It is intermediately sensitive to ceftazidime, levofloxacin. It does appear to be sensitive to Zosyn, tetracycline, imipenem, gentamicin and amikacin. The patient was appropriately changed to Zosyn after discussion with hospitalist. Infectious disease consult was recommended. Contact isolation precautions were recommended. Interestingly our sputum cultures at [facility] have been unremarkable thus far. Thank you for including us in the care of this patient. The pulmonary service will sign off at this time. Admission and Anticipated Discharge Date Admission Date: November 12, 2021 Subjective Attending: Dr. Rogers Patient seen and examined in room 316. No no acute complaints. Cough seems to be slightly improved from yesterday. No production of sputum. No fever or chills. ID consult completed yesterday. Patient continues on IV Zosyn. Review of Systems Review of Systems: All systems reviewed & are unremarkable except as noted in Subjective Physical Exam Physical Exam: GENERAL : No acute distress EYES: No icterus, gaze conjugate NOSE: No evidence of epistaxis MOUTH: No lesions or candidiasis NECK: Supple LUNGS: Bibasilar crackles. No bronchospasm. No rhonchi. Good inspirational effort. No induced cough with deep inspiration. HEART: Regular, rate controlled ABDOMEN: Soft, NT, ND, BS Present EXTREMITIES: No LE edema, pedal pulses intact NEURO: A&OX3 Results & Data Results & Data ([facility]) Vital Signs (Past 12 Hours) Vital Signs Temp Pulse Resp BP Pulse Ox 11/16/21 07:21 36.9 C 62 16 144/73 H 93 Critical Care Results & Data Vital Signs (Past 12 Hours) Vital Signs Temp Pulse Resp BP Pulse Ox 11/16/21 07:21 36.9 C 62 16 144/73 H 93 Lab & Micro Results (Past 24 Hours) RBC 2.77 M/uL (4.7-6.1) L 11/16/21 WBC 144.66 K/uL (4.8-10.8) H* 11/16/21 Hgb 9.7 g/dL (14.0-18.0) L 11/16/21 Hct 27.8 % (42-52) L 11/16/21 MCV 100.4 fL (80-100) H 11/16/21 MCH 35.0 pg (25-34) H 11/16/21 MCHC 34.9 g/dL (32-36) 11/16/21 RDW Standard Deviation 54.9 fL (36.4-46.3) H 11/16/21 RDW Coefficient of Variation 15.0 % (11.5-14.5) H 11/16/21 Plt Count 309 K/uL (130-400) 11/16/21 MPV 10.2 fL (7.4-10.4) 11/16/21 ANC 1.16 K/uL (1.4-6.5) L 11/16/21 ALC 143.50 K/uL (1.2-3.4) H 11/16/21 Neutrophils % (Manual) 0.8 % 11/16/21 Lymphocytes % (Manual) 99.2 % 11/16/21 Neutrophils # (Manual) 1.16 K/uL (1.4-6.5) L 11/16/21 Lymphocytes # (Manual) 143.50 K/uL (1.2-3.4) H 11/16/21 Smudge Cells Present 11/16/21 Na 139 mmol/L (136-145) 11/16/21 K 4.2 mmol/L (3.5-5.1) 11/16/21 Cl 105 mmol/L (98-107) 11/16/21 CO2 26 mmol/L (21-32) 11/16/21 Anion Gap 8 (3-11) 11/16/21 BUN 28 mg/dl (6-23) H 11/16/21 Creatinine 1.42 mg/dl (0.6-1.4) H 11/16/21 Estimated GFR ( Amer) 55.2 ml/min 11/16/21 Estimated GFR (Non-Af Amer) 47.6 ml/min 11/16/21 BUN/Creatinine Ratio 19.7 (10-20) 11/16/21 Glu 90 mg/dl (70-99(Fasting)) 11/16/21 Ca 9.5 mg/dl (8.5-10.1) 11/16/21 Total Bilirubin 0.3 mg/dl (0.2-1.0) 11/16/21 AST 19 U/L (13-39) 11/16/21 ALT 11 U/L (7-52) 11/16/21 Alkaline Phosphatase 115 U/L (34-104) H 11/16/21 TP 6.4 gm/dl (6.0-8.3) 11/16/21 Albumin 3.1 gm/dl (3.4-5.0) L 11/16/21 Globulin 3.3 gm/dl (2.5-4.0) 11/16/21 Albumin/Globulin Ratio 0.9 (0.9-2) 11/16/21 Calcium Level 9.5 mg/dl (8.5-10.1) 11/16/21 06:06 11/16/21 Prothromb Time International Ratio 1.1 (0.9-1.1) 11/16/21 06:06 11/16/21 I & O Totals 24 Hours 11/15/21 11/16/21 11/17/21 06:59 06:59 06:59 Intake Total 1535 / 1535 1205 / 1205 115 / 115 Output Total 1451 / 1451 700 / 700 350 / 350 Balance 84 / 84 505 / 505 -235 / -235 Cumulative 11/11/21 23:20 thru 11/16/21 12:15 Intake Total 7832.500 Output Total 5051 Balance 2781.500 RT Ventilator Mngmt (Last Documented) Ventilator Ordered Settings Respiratory Rate 16 11/16/21 07:21 Ventilator - PT Measurements Respiratory Rate 16 PG Care Time/CCT Total # of Minutes Spent Total Time Spent with Patient: Total time spent is greater than 50% in coordination of care (as documented) at patient's floor/unit and/or counseling patient: 30 minutes Coding Level of Care Code 79215 Subseq Hosp Care Lvl 2 Diagnoses Multifocal pneumonia J18.9 Fever R50.9 Dyspnea R06.02 Dyspnea type: shortness of breath CLL (chronic lymphocytic leukemia) C91.10 Asthma J45.909 Time Spent (min) 30
[2021-11-17] MEDS: guaiFENesin/CODEINE 100MG/10MG 5ML UDC PO SCH ×4 (05:07→21:32)
[2021-11-17] MEDS: PIPERACILLIN/TAZOBACTAM 3.375 GM in DEXTROSE 5% 100 ML IV SCH ×3 (05:15→21:32)
[2021-11-17 06:57] LABS: Albumin Level 3.2 gm/dl (3.4-5.0); BUN Creatinine Ratio 19.9 (10-20); Bilirubin,Total 0.3 mg/dl (0.2-1.0); Calcium 9.4 mg/dl (8.5-10.1); Creatinine Clr Calc Pharmacy 37.7 ml/min; Est GFR (African American) 49.3 ml/min; Est GFR (Non-African American) 42.5 ml/min; Globulin 3.1 gm/dl (2.5-4.0); Total Protein 6.3 gm/dl (6.0-8.3)
[2021-11-17 07:02] LABS: Hematocrit (blood only) 29.4 % (42-52); Hemoglobin 9.6 g/dL (14.0-18.0); Mean Corpuscular Hgb Conc 32.7 g/dL (32-36); Mean Platelet Volume 10.3 fL (7.4-10.4); Platelet Count 330 K/uL (130-400); RDW Coefficient of Variation 15.4 % (11.5-14.5); RDW Standard Deviation 55.4 fL (36.4-46.3); Red Blood Count 2.91 M/uL (4.7-6.1); White Blood Count 168.24 K/uL (4.8-10.8)
[2021-11-17] MEDS: OXYMETAZOLINE 0.05% 30 ML BTL SCH (08:06)
[2021-11-17] MEDS: FLUTICASONE/VILANTEROL 200/25MCG 14 PUFFS/INHALER INH SCH (08:06)
[2021-11-17] MEDS: CEROVITE ADV FORMULA TAB PO SCH (08:07)
[2021-11-17] MEDS: ASCORBIC ACID 500 MG TAB PO SCH (08:07)
[2021-11-17] MEDS: PANTOprazole 40 MG TAB PO SCH (08:07)
[2021-11-17] MEDS: ZINC SULFATE 220 MG CAPSULE PO SCH (08:07)
[2021-11-17] MEDS: FLUTICASONE PROPIONATE NA SPR 16 GM BTL NAE SCH (08:07)
[2021-11-17] MEDS: ASPIRIN 81 MG ECTAB PO SCH (08:07)
[2021-11-17] MEDS: FERROUS SULFATE 325 MG TAB PO SCH (08:07)
[2021-11-17] MEDS: SACCHAROMYCES BOULARDII 250 MG CAP PO SCH (08:07)
[2021-11-17] MEDS: ENOXAPARIN INJ 40 MG/0.4 ML SYR SQ SCH (08:08)
[2021-11-17] MEDS: POLYETHYLENE (MIRALAX) 17 GM PACK PO PRN (10:14)
--- NOTE | 2021-11-17 11:02 | Discharge Summary ---
Date of Service November 17, 2021 Admission HPI Per Admitting Provider This is a 76-year-old male with past medical history significant for asthma, moderate persistent, BPH, history of B-cell CLL, hypogammaglobulinemia, history of tuberculosis in status post treatment, presents with shortness of breath and cough. The patient says he has had multiple pneumonias since last summer and has also sinus infections. He was diagnosed with B-cell CLL couple of years in 06/2020 and hypogammaglobulinemia IgG level around 450-470 range as per the Hem/Onc notes and he was getting IVIG q. 4 weekly started on 01/2021. Regarding B-cell CLL, currently under observation. The patient says he has again developed cough, since couple of weeks having short of breath, bringing yellowish phlegm, sometimes also has yellowish stuff is coming from his nose. Recently saw Pulmonary and was started on antibiotics of cefpodoxime 200 mg b.i.d. for 10 days and almost he is on the last dose, but it is not getting better. He has had temperature of 100 at home and is feeling short of breath with exertion and has ongoing symptoms. He came to the ER and CAT scan done here shows multifocal pneumonia. His COVID is negative. Patient says he is vaccinated and boosted and his family also is vaccinated and boosted. Currently resting comfortably, hemodynamically stable. Oxygen saturation is okay. Has some headache, no blurred visions, no sore throat, no difficulty swallowing. Appetite is slightly down. Denies any chest pain, no nausea, no vomiting, no abdominal pain. Stools are somewhat constipated and dark. He has prostate problems. Problems with micturation.No swelling in the legs. Ambulating okay at home. Admission Exam Per Admitting Provider GENERAL: The patient is of moderate build, not in acute distress. VITAL SIGNS: Temperature 36.8, pulse 78, respiratory rate 20, blood pressure 174/79, oxygen 95% on room air. HEENT: Pupils equal, round and reactive to light. Oral mucosa moist. NECK: No JVD, no neck masses. CARDIOVASCULAR: S1 and S2 heard. Regular rate and rhythm. No murmur, no gallop. RESPIRATORY SYSTEM: Normal AP diameter. No accessory muscle use. No wheezing, no crackles. ABDOMEN: Soft, bowel sounds present, nontender, no distention. CENTRAL NERVOUS SYSTEM: Cranial nerves II-XII grossly intact, nonfocal. EXTREMITIES: No edema, no erythema Principal Diagnosis (1) Leukemoid reaction: (2) Leukocytosis: (3) Dyspnea: (4) Anemia: (5) CLL (chronic lymphocytic leukemia): (6) Multifocal pneumonia: (7) Abnormal chest CT: (8) Asthma: (9) History of TB (tuberculosis): (10) Fever: Discharge Exam See below Discharge Data Allergies Allergy/AdvReac Type Severity Reaction Status Date / Time rofecoxib Allergy Intermediate RASH,SWELLING, Verified 11/12/21 00:02 UNSTEADY GAIT/STUMBLING meperidine Allergy Vomiting Unverified 11/12/21 00:02 Consultations 11/12/21 04:06 ED Decision to Admit Stat 11/12/21 10:25 Consult Pulmonology Routine 11/12/21 16:37 Consult Oncology Routine 11/14/21 11:40 Consult Infectious Diseases Routine Ordered Studies 11/12/21 00:11 CT abd pelvis IV con only Urgent CT chest diagnostic w con Urgent 11/17/21 10:51 CT chest diagnostic wo con Routine Current Diagnoses Chronic lymphocytic leukemia of B-cell type not having achieved remission (11/12/21) Anemia, unspecified (11/12/21) Leukemoid reaction (11/12/21) Elevated white blood cell count, unspecified (11/12/21) Pneumonia, unspecified organism (11/12/21) Unspecified asthma, uncomplicated (11/12/21) Shortness of breath (11/12/21) Fever, unspecified (11/12/21) Abnormal findings on diagnostic imaging of other specified body structures (11/12/21) Personal history of tuberculosis (11/12/21) Allergies rofecoxib Allergy (Intermediate, Verified 11/12/21 00:02) RASH,SWELLING, UNSTEADY GAIT/STUMBLING meperidine Allergy (Unverified 11/12/21 00:02) Vomiting Height/Weight/Isolation Height 5 ft 10 in Weight 66.1 kg Isolation Type Contact Precautions Chemistry 11/16/21 11/17/21 06:06 06:00 Sodium 139 139 Potassium 4.2 5.0 Chloride 105 107 Carbon Dioxide 26 27 Anion Gap 8 5 BUN 28 H 31 H Creatinine 1.42 H 1.56 H Glucose 90 88 Microbiology 11/12/21 02:09 Blood Aerobic Blood Culture - Final No growth in Aerobic bottle after 5 days. 11/12/21 02:09 Blood Anaerobic Blood Culture - Final No growth in Anaerobic bottle after 5 days. 11/12/21 02:09 Blood Aerobic Blood Culture - Final No growth in Aerobic bottle after 5 days. 11/12/21 02:09 Blood Anaerobic Blood Culture - Final No growth in Anaerobic bottle after 5 days. 11/16/21 Unknown Sputum, Expectorated Acid Fast Bacilli Smear - Pending 11/16/21 Unknown Sputum, Expectorated Acid Fast Bacilli Culture - Pending Hospital Course (1) Leukemoid reaction: (2) Leukocytosis: (3) Dyspnea: (4) Anemia: (5) CLL (chronic lymphocytic leukemia): (6) Multifocal pneumonia: (7) Abnormal chest CT: (8) Asthma: (9) History of TB (tuberculosis): (10) Fever: Multifocal Pneumonia -MRSA screen neg, viral panel negative, AFB ordered, Legionella ordered -failed outpatient therapy -Sputum culture from outpatient provider --> positive for achromobacter denitrificans. Multi drug resistance pattern-- Sensitive to: Zosyn, Amikacin, Gentamicin, imipenem, tobramycin -ID consult for antibiotic recommendations. Zosyn 3.375 g IV Q8H, stop date 11/27 CLL Hypogammaglobulinemia -WBC here elevated: 137--> 120--> 128K today (outpatient it was 186K from 09/2021) -sees Dr Pierre of Oncology--patient missed his last dose of IVIG due to recent illness--> IVIG 30gm while here. With regards to his CLL, no plan for treatment while here. History of TB -previously treated, Check AFB BPH -monitor for symptoms of retention Asthma -appears stable currently Chronic iron deficiency anemia -continue iron GERD -PPI DVT ppx SQ lovenox Labs Checked DC home Today p CTC, f/u c ID, Pulm, PCP ROS-No Headache, No Visual Changes, No Nausea, No Vomiting, No Fever, No Chills, No Neck Pain or Stiffness, No Chest Pain, No Palpitations, No SOB, No S[place], No Cough, No Sputum, No Wheezing, No Abdominal Pain, No Diarrhea, No Hematemesis, No Hemoptysis, No Unexpected Weight Loss, No Flank pain, No Melena, No Hematochezia, No Frequency, No Urgency, No Burning, No Hematuria, No Rashes, No Diaphoresis. Appetite is Normal Physical Exam Gen-AAO x 3, NAD, Afebrile Head-NCAT, EOMI, PERRLA, Anicteric Sclera, No Posterior Pharyngeal Erythema Neck-Supple, No JVD, No Thyromegaly, No Masses, No LAD, No Bruits Lungs-Clear to Auscultation Bilaterally, No Rales, No Rhonchi, No Wheezing, No Crepitus Chest-No S4, +S1, +S2, No S3, No Murmurs, No Rubs, No Gallops, No Ectopy Abdomen-Soft, Bowel Sounds Present, Non Tender, Non Distended, No Hepatomegaly, No Splenomegaly, No Palpable Masses, No Rebound, No Rigidity, No Guarding Musculoskeletal-Full Range of Motion Bilaterally, No CVAT Extremities-No Cyanosis, No Clubbing, No Edema Nuero-Cranial Nerves II-XII grossly intact, Motor WNL, DTRs WNL, Strength WNL, Non Focal Psych-Normal Mood Total Time Total Time Spent Total Time Spent (In Minutes): 45 mins Discharge Plan Discharge Items Patient Disposition: Home - Self-Care Reason For Visit: SOB Discharge Diagnosis: (1) Leukemoid reaction: (2) Leukocytosis: (3) Dyspnea: (4) Anemia: (5) CLL (chronic lymphocytic leukemia): (6) Multifocal pneumonia: (7) Abnormal chest CT: (8) Asthma: (9) History of TB (tuberculosis): (10) Fever: Condition on Discharge: Good Activity: Resume your previous activity Lifting: Gradually increase as tolerated Bathing: No limitations Sexual Activity: When tolerated Exercise/Sports: Gradually increase as tolerated Driving/Machine Use: No limitations Weightbearing: Full weightbearing Non-emergency contact: Primary Care Provider, Specialist and Blacksmith Assistant Call non-emergency contact if: you have any medication questions Follow-up/Referrals: Nishant Rogers MD [Physician] - (Call for first opening) Cordell Valle [Primary Care Provider] - Ector Polo DO [Physician] - (Call for an appointment, first available Dr in the group) Diet: Regular Addtl Attending Provider Instructions: None Pending Studies at Discharge: Yes Studies:: CT Chest Stand-Alone Forms: [facility], Smoking Cessation Medications and DC Order Prescriptions: New acetaminophen 325 mg Tablet 650 mg PO Q4H PRN (Reason: fever or pain) Qty: 100 RF: 0 oxymetazoline [Nasal [place] (oxymetazoline)] 0.05 % [place],Non-Aerosol 2 spray NA DAILY PRN (Reason: nasal congestion) Qty: 5 RF: 0 Piperacill/Tazobac Consult [Consult] 1 dose Not Applicable UD PRN (Reason: pneumonia) Qty: 1 RF: 0 Continued omeprazole 20 mg Tablet,Delayed Release (Dr/Ec) 20 mg PO DAILY Qty: 0 RF: 0 aspirin 81 mg tablet,delayed release (DR/EC) 81 mg PO DAILY RF: 0 Breo Ellipta 200-25 mcg/dose blister with device 1 inh inhalation DAILY RF: 0 ferrous sulfate [Feosol] 325 mg (65 mg iron) tablet 325 mg PO DAILY RF: 0 ascorbate calcium (vitamin C) 500 mg tablet 500 mg PO DAILY RF: 0 Multiple Vitamin-Minerals Tablet 1 tab PO DAILY RF: 0 Probiotic Acidophilus Biobeads 12.9 mg (2 billion cell) Tablet,Delayed Release (Dr/Ec) 1 tab PO TIDM RF: 0 zinc 50 mg Tablet 50 mg PO DAILY RF: 0 Discontinued cefpodoxime 200 mg tablet 200 mg PO BID RF: 0 fluticasone propionate 50 mcg/actuation spray,suspension 2 spray intranasal DAILY RF: 0 Discharge Orders: Discharge Order (Routine); Ordered 11/17/21 Ordered By: Raul Higginbotham Admission Data Admit Date/Time: 11/12/21 05:24 Attending Provider: Raul Higginbotham Admit Provider: Shun España Primary Care Provider: Cordell Valle Other Providers: Nettie Mercado ; Shun España ; Max Martins ; Donato Leary Carlos M. ; Regla Barragan ; Cali Anthony I. ; Abdifatah Gonzalez II ; Zoë Abernathy ; Baldev Daugherty ; Ector Polo ; [facility]
--- NOTE | 2021-11-17 12:23 | CT Scan Report ---
CT OF THE CHEST WITHOUT IV CONTRAST CLINICAL HISTORY: Follow-up pneumonia. History of CLL. COMPARISON STUDY: Chest CT May 19, 2021 and November 12, 2021. CT DOSE: 269.07 mGy.cm TECHNIQUE: Axial images of the chest were obtained without IV contrast. Images were reviewed in the axial, sagittal, and coronal planes. IV contrast was not administered for this examination. Automat ed exposure control was utilized for the study. A dose lowering technique was utilized adhering to t he principles of ALARA. FINDINGS: Enlarged, mediastinal, bilateral axillary and bilateral hilar lymph nodes are unchanged si nce prior CT of November 12, 2021. Index subcarinal lymph node measures 1.6 cm in short axis diameter. Index left axillary lymph node measures 1.3 cm. There is no pericardial effusion. Size of the heart is normal. No pneumothorax or pleural effusion is noted. Multifocal consolidation within the lungs is similar to CT of November 12, 2021. This is most pronounced within the bilateral lower lobes and the posterior segment of the right upper lobe. No cavitation is present. Central airways are patent. Visu alized portions of the upper abdomen demonstrate stable splenomegaly. Retroperitoneal lymphadenopathy is partially imaged on this exam. IMPRESSION: 1. No significant change in multifocal airspace opacities within lungs suggestive of pneumonia. . 2. No significant change in thoracic and abdominal lymphadenopathy as well as splenomegaly since prio r exam. This is likely related to the known diagnosis of CLL. Superimposed reactive component lymphad enopathy may also be present. ACT 112: Negative or not required by law. Electronically signed by: Carmelo Bowie M.D. 11/17/2021 12:21 PM
[2021-11-17] MEDS ORDERED: MAGNESIUM CITRATE 296 ML/BTL PO ONE (12:43)
--- NOTE | 2021-11-17 12:45 | Hospitalist Progress Note ---
Date of Service November 17, 2021 Assessment & Plan (1) Leukemoid reaction: (2) Leukocytosis: (3) Dyspnea: (4) Anemia: (5) CLL (chronic lymphocytic leukemia): (6) Multifocal pneumonia: (7) Abnormal chest CT: (8) Asthma: (9) History of TB (tuberculosis): (10) Fever: Plan: Multifocal Pneumonia -MRSA screen neg, viral panel negative, AFB ordered, Legionella ordered -failed outpatient therapy -Sputum culture from outpatient provider --> positive for achromobacter denitrificans. Multi drug resistance pattern-- Sensitive to: Zosyn, Amikacin, Gentamicin, imipenem, tobramycin -ID consult for antibiotic recommendations. Zosyn 3.375 g IV Q8H, stop date 11/27 CLL Hypogammaglobulinemia -WBC here elevated: 137--> 120--> 128K today (outpatient it was 186K from 09/2021) -sees Dr Pierre of Oncology--patient missed his last dose of IVIG due to recent illness--> IVIG 30gm while here. With regards to his CLL, no plan for treatment while here. History of TB -previously treated, Check AFB BPH -monitor for symptoms of retention Asthma -appears stable currently Chronic iron deficiency anemia -continue iron GERD -PPI DVT ppx SQ lovenox Labs Checked DC home Tomorrow p f/u c ID, Pulm, PCP ROS-No Headache, No Visual Changes, No Nausea, No Vomiting, No Fever, No Chills, No Neck Pain or Stiffness, No Chest Pain, No Palpitations, No SOB, No S[place], No Cough, No Sputum, No Wheezing, No Abdominal Pain, No Diarrhea, No Hematemesis, No Hemoptysis, No Unexpected Weight Loss, No Flank pain, No Melena, No Hematochezia, No Frequency, No Urgency, No Burning, No Hematuria, No Rashes, No Diaphoresis. Appetite is Normal Physical Exam Gen-AAO x 3, NAD, Afebrile Head-NCAT, EOMI, PERRLA, Anicteric Sclera, No Posterior Pharyngeal Erythema Neck-Supple, No JVD, No Thyromegaly, No Masses, No LAD, No Bruits Lungs-Clear to Auscultation Bilaterally, No Rales, No Rhonchi, No Wheezing, No Crepitus Chest-No S4, +S1, +S2, No S3, No Murmurs, No Rubs, No Gallops, No Ectopy Abdomen-Soft, Bowel Sounds Present, Non Tender, Non Distended, No Hepatomegaly, No Splenomegaly, No Palpable Masses, No Rebound, No Rigidity, No Guarding Musculoskeletal-Full Range of Motion Bilaterally, No CVAT Extremities-No Cyanosis, No Clubbing, No Edema Nuero-Cranial Nerves II-XII grossly intact, Motor WNL, DTRs WNL, Strength WNL, Non Focal Psych-Normal Mood Admission and Anticipated Discharge Date Admission Date: November 12, 2021 Subjective Patient can't go until tomorrow Results & Data Results & Data ([facility]) Vital Signs (Past 12 Hours) Vital Signs Temp Pulse Resp BP Pulse Ox 11/17/21 07:18 36.5 C 58 L 16 134/72 91 (1) Leukocytosis Leukocytosis type: unspecified Qualified Code(s): D72.829 - Elevated white blood cell count, unspecified (2) Dyspnea Dyspnea type: shortness of breath Qualified Code(s): R06.02 - Shortness of breath (3) Anemia Anemia type: unspecified type Qualified Code(s): D64.9 - Anemia, unspecified
[2021-11-18] MEDS: guaiFENesin/CODEINE 100MG/10MG 5ML UDC PO SCH ×4 (04:55→21:57)
[2021-11-18] MEDS: PIPERACILLIN/TAZOBACTAM 3.375 GM in DEXTROSE 5% 100 ML IV SCH ×3 (05:12→21:56)
[2021-11-18 07:23] LABS: Creatinine Clr Calc Pharmacy 37.4 ml/min; Est GFR (African American) 48.9 ml/min; Est GFR (Non-African American) 42.2 ml/min
[2021-11-18] MEDS ORDERED: bisacodyL 10 MG SUPP PR STA (08:03)
[2021-11-18] MEDS ORDERED: LACTULOSE SYRUP 30 GM/45 ML UDP PO ONE (08:05)
[2021-11-18] MEDS: ASPIRIN 81 MG ECTAB PO SCH (08:42)
[2021-11-18] MEDS: FLUTICASONE PROPIONATE NA SPR 16 GM BTL NAE SCH (08:42)
[2021-11-18] MEDS: FERROUS SULFATE 325 MG TAB PO SCH (08:42)
[2021-11-18] MEDS: ASCORBIC ACID 500 MG TAB PO SCH (08:42)
[2021-11-18] MEDS: PANTOprazole 40 MG TAB PO SCH (08:43)
[2021-11-18] MEDS: CEROVITE ADV FORMULA TAB PO SCH (08:43)
[2021-11-18] MEDS: FLUTICASONE/VILANTEROL 200/25MCG 14 PUFFS/INHALER INH SCH (08:43)
[2021-11-18] MEDS: OXYMETAZOLINE 0.05% 30 ML BTL SCH (08:43)
[2021-11-18] MEDS: SACCHAROMYCES BOULARDII 250 MG CAP PO SCH (08:43)
[2021-11-18] MEDS: ZINC SULFATE 220 MG CAPSULE PO SCH (08:44)
[2021-11-18] MEDS: ENOXAPARIN INJ 40 MG/0.4 ML SYR SQ SCH (11:28)
[2021-11-18] MEDS ORDERED: SOD PHOSPHATE/SOD BIPHOSPHATE ENEMA 132 ML BTL PR STA (12:08)
[2021-11-18] MEDS ORDERED: ONDANSETRON INJ 2 MG/ML 2 ML VIAL IV PRN (12:11)
--- NOTE | 2021-11-18 12:19 | Hospitalist Progress Note ---
Date of Service November 18, 2021 Assessment & Plan (1) Leukemoid reaction: (2) Leukocytosis: (3) Dyspnea: (4) Anemia: (5) CLL (chronic lymphocytic leukemia): (6) Multifocal pneumonia: (7) Abnormal chest CT: (8) Asthma: (9) History of TB (tuberculosis): (10) Fever: Plan: Multifocal Pneumonia -MRSA screen neg, viral panel negative, AFB ordered, Legionella ordered -failed outpatient therapy -Sputum culture from outpatient provider --> positive for achromobacter denitrificans. Multi drug resistance pattern-- Sensitive to: Zosyn, Amikacin, Gentamicin, imipenem, tobramycin -ID consult for antibiotic recommendations. Zosyn 3.375 g IV Q8H, stop date 11/27 CLL Hypogammaglobulinemia -WBC here elevated: 137--> 120--> 128K today (outpatient it was 186K from 09/2021) -sees Dr Pierre of Oncology--patient missed his last dose of IVIG due to recent illness--> IVIG 30gm while here. With regards to his CLL, no plan for treatment while here. History of TB -previously treated, Check AFB BPH -monitor for symptoms of retention Asthma -appears stable currently Chronic iron deficiency anemia -continue iron GERD -PPI DVT ppx SQ lovenox Labs Checked Repeat CT Chest wo any significant change DC home Tomorrow ROS-No Headache, No Visual Changes, No Nausea, No Vomiting, No Fever, No Chills, No Neck Pain or Stiffness, No Chest Pain, No Palpitations, No SOB, No S[place], No Cough, No Sputum, No Wheezing, No Abdominal Pain, No Diarrhea, No Hematemesis, No Hemoptysis, No Unexpected Weight Loss, No Flank pain, No Melena, No Hematochezia, No Frequency, No Urgency, No Burning, No Hematuria, No Rashes, No Diaphoresis. Appetite is Normal Physical Exam Gen-AAO x 3, NAD, Afebrile Head-NCAT, EOMI, PERRLA, Anicteric Sclera, No Posterior Pharyngeal Erythema Neck-Supple, No JVD, No Thyromegaly, No Masses, No LAD, No Bruits Lungs-Clear to Auscultation Bilaterally, No Rales, No Rhonchi, No Wheezing, No Crepitus Chest-No S4, +S1, +S2, No S3, No Murmurs, No Rubs, No Gallops, No Ectopy Abdomen-Soft, Bowel Sounds Present, Non Tender, Non Distended, No Hepatomegaly, No Splenomegaly, No Palpable Masses, No Rebound, No Rigidity, No Guarding Musculoskeletal-Full Range of Motion Bilaterally, No CVAT Extremities-No Cyanosis, No Clubbing, No Edema Nuero-Cranial Nerves II-XII grossly intact, Motor WNL, DTRs WNL, Strength WNL, Non Focal Psych-Normal Mood Admission and Anticipated Discharge Date Admission Date: November 12, 2021 Subjective PT seen, Tried to send home but wants to a BM first and had an episode of nausea and vomiting Results & Data Results & Data ([facility]) Vital Signs (Past 12 Hours) Vital Signs Temp Pulse Resp BP Pulse Ox 11/18/21 08:30 36.5 C 63 16 125/66 92 (1) Leukocytosis Leukocytosis type: unspecified Qualified Code(s): D72.829 - Elevated white blood cell count, unspecified (2) Dyspnea Dyspnea type: shortness of breath Qualified Code(s): R06.02 - Shortness of breath (3) Anemia Anemia type: unspecified type Qualified Code(s): D64.9 - Anemia, unspecified
[2021-11-18] MEDS: LACTULOSE SYRUP 20 GM/30 ML UDC PO SCH ×3 (13:43→21:58)
[2021-11-18] MEDS: DOCUSATE SODIUM 100 MG CAP PO SCH ×2 (13:44→21:57)
[2021-11-19] MEDS ORDERED: SOD PHOSPHATE/SOD BIPHOSPHATE ENEMA 132 ML BTL PR PRN (02:17)
[2021-11-19] MEDS: guaiFENesin/CODEINE 100MG/10MG 5ML UDC PO SCH ×2 (05:24→09:22)
[2021-11-19] MEDS: PIPERACILLIN/TAZOBACTAM 3.375 GM in DEXTROSE 5% 100 ML IV SCH (05:31)
[2021-11-19] MEDS: ASPIRIN 81 MG ECTAB PO SCH (09:21)
[2021-11-19] MEDS: DOCUSATE SODIUM 100 MG CAP PO SCH (09:21)
[2021-11-19] MEDS: FERROUS SULFATE 325 MG TAB PO SCH (09:21)
[2021-11-19] MEDS: FLUTICASONE PROPIONATE NA SPR 16 GM BTL NAE SCH (09:21)
[2021-11-19] MEDS: LACTULOSE SYRUP 20 GM/30 ML UDC PO SCH (09:21)
[2021-11-19] MEDS: OXYMETAZOLINE 0.05% 30 ML BTL SCH (09:21)
[2021-11-19] MEDS: ZINC SULFATE 220 MG CAPSULE PO SCH (09:21)
[2021-11-19] MEDS: CEROVITE ADV FORMULA TAB PO SCH (09:21)
[2021-11-19] MEDS: ASCORBIC ACID 500 MG TAB PO SCH (09:21)
[2021-11-19] MEDS: PANTOprazole 40 MG TAB PO SCH (09:21)
[2021-11-19] MEDS: SACCHAROMYCES BOULARDII 250 MG CAP PO SCH (09:21)
[2021-11-19] MEDS: ENOXAPARIN INJ 40 MG/0.4 ML SYR SQ SCH (09:22)
[2021-11-19] MEDS: FLUTICASONE/VILANTEROL 200/25MCG 14 PUFFS/INHALER INH SCH (09:22)
== END 2021-11-19 12:35 | disposition home health service (06) | DRG 194 ==
LOC: ED 23:20 → SUATTDRO 11-12 05:24 → 2N 11-12 05:24 → 3E 11-15 17:21

== ENCOUNTER 2021-12-30 16:03 | Inpatient (IN) ==
[2021-12-30 17:18] LABS: Hematocrit (blood only) 27.7 % (42-52); Mean Corpuscular Hemoglobin 32.7 pg (25-34); Mean Corpuscular Hgb Conc 32.5 g/dL (32-36); Mean Corpuscular Volume 100.7 fL (80-100); Mean Platelet Volume 11.2 fL (7.4-10.4); Platelet Count 220 K/uL (130-400); RDW Coefficient of Variation 16.4 % (11.5-14.5); RDW Standard Deviation 59.8 fL (36.4-46.3); Red Blood Count 2.75 M/uL (4.7-6.1); White Blood Count 148.38 K/uL (4.8-10.8)
--- NOTE | 2021-12-30 17:20 | Emergency Department Note ---
History of Present Illness General Chief complaint: Shortness of Breath/Dyspnea Stated complaint: SOB, LOSING WEIGHT, COUGH, SLEEP LOSS Time Seen by Provider: 12/30/21 16:34 Source: patient Mode of arrival: ambulatory Limitations: no limitations History of Present Illness Provider complaint: Worsening cough, difficulty sleeping, recent pneumonia Onset (ago): unknown Treatments prior to arrival: none This is a 76-year-old male presents emergency department complaining of worsening cough, difficulty sleeping, in the setting of a recent pneumonia diagnosed 1 month ago that required inpatient treatment. 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 Patient also has a history of CLL. Patient states he has had frequent pneumonias throughout the last recent years. Patient states he was hospitalized last month with a multifocal pneumonia and was admitted for 8 days. They did consult infectious disease during that time. He states he does follow with Dr. Martins of pulmonology. Pt seen during a time of high acuity and national emergency pandemic while wearing PPE. Home Medications Medication Instructions Recorded Confirmed Type omeprazole 20 mg tablet,delayed 20 mg PO QAM #0 cap 01/16/16 12/30/21 History release ascorbate calcium (vitamin C) 500 500 mg PO QAM 07/11/21 12/30/21 History mg tablet aspirin 81 mg tablet,delayed 81 mg PO QAM 07/11/21 12/30/21 History release ferrous sulfate 325 mg (65 mg 325 mg PO QAM 07/11/21 12/30/21 History iron) tablet (Feosol) L.acidoph-L.rhamn-B.bifidum-B.long 1 tab PO QAM 11/11/21 12/30/21 History 12.9 mg (2 billion cell) DR renae (Probiotic Acidophilus [facility]) multivitamin with minerals 1 tab PO QAM 11/11/21 12/30/21 History (Multiple Vitamin-Minerals) zinc 50 mg tablet 50 mg PO QAM 11/12/21 12/30/21 History acetaminophen 325 mg tablet 650 mg PO Q4H PRN #100 tab 11/17/21 12/30/21 Rx docusate sodium 100 mg capsule 100 mg PO BID #60 cap 11/19/21 12/30/21 Rx (Colace) Flutter Valve #1 ea 11/29/21 12/30/21 Rx fluticasone furoate 200 1 inh INHALATION QAM 12/30/21 12/30/21 History mcg-vilanterol 25 mcg/dose inhalation powder (Breo Ellipta) guaifenesin 1,200 mg tablet, 1,200 mg PO BID 12/30/21 12/30/21 History extended release 12 hr (Mucinex) mometasone 50 mcg/actuation nasal 2 spray INTRANASAL HS 12/30/21 12/30/21 History spray Allergies Allergy/AdvReac Type Severity Reaction Status Date / Time rofecoxib Allergy Intermediate RASH,SWELLING, Verified 12/30/21 18:29 UNSTEADY GAIT/STUMBLING lamotrigine [From Lamictal] AdvReac Mild cannot Unverified 12/30/21 20:11 think straight, stumbling and falling. meperidine AdvReac Mild Vomiting Unverified 12/30/21 20:11 Past Med/Surg History Medical History (Updated 12/31/21 @ 01:14 by Sue Parekh DO) Asthma BPH (benign prostatic hyperplasia) Tuberculosis UTI (urinary tract infection) Social History Smoking Status: Never smoker Hx Alcohol Use: No Hx Substance Use: No Preferred Language: Peruvian Communication Ability: Effective Pouncing Lathe Operator Required: No Beliefs That Will Affect Care: None Current Living Situation: Spouse Feels Safe at Home: Yes Assistive Devices: None Review of Systems A total of 10 systems reviewed and were otherwise negative All systems reviewed & are unremarkable except as noted in HPI & below Physical Exam Vital Signs Vital Signs - 24 hr 12/30/21 16:07 12/30/21 16:18 12/30/21 18:04 Temperature 37.1 C Temperature Source Oral Pulse Rate 69 Pulse Rate [Apical] 70 77 Pulse Rhythm Regular Pulse Strength Normal Respiratory Rate Respiratory Effort / Characteristics Labored Non-Labored Spontaneous Non-Labored Spontaneous Respiratory Depth Normal Normal Normal Respiratory Pattern Regular Regular Regular Blood Pressure 120/75 Blood Pressure [Right Arm] 125/63 111/70 Blood Pressure Mean 90 Blood Pressure Mean [Right Arm] 83 83 Blood Pressure Position Sitting Blood Pressure Position [Right Arm] Sitting Sitting Pulse Oximetry 95 94 96 Oxygen Delivery Method Room Air Room Air Sepsis Recent Fever Within 48 Hours No Sepsis New/Unexplained Change in Mental Status No Sepsis Action Taken by Nursing No Action Required GENERAL: alert, well appearing, well nourished, no distress, non-toxic EYE EXAM: normal conjunctiva, PERRL and EOM's grossly intact OROPHARYNX: no exudate, no erythema, lips, buccal mucosa, and tongue normal and mucous membranes are moist NECK: supple, no nuchal rigidity, no adenopathy, non-tender LUNGS: Clear to auscultation. Normal chest wall mechanics, no w/r/r, frequent coarse cough noted during exam HEART: no murmurs, S1 normal and S2 normal ABDOMEN: abdomen soft, non-tender, normo-active bowel sounds, no masses, no rebound or guarding. BACK: Back is symmetrical on inspection and there is no deformity, no midline tenderness, no CVA tenderness. SKIN: no rashes and no bruising UPPER EXTREMITIES: upper extremities are grossly normal. FROM, nml pulses b/l. LOWER EXTREMITIES: No pitting edema. FROM, nml pulses b/l. NEURO EXAM: Normal sensorium, cranial nerves II-XII grossly intact, normal speech, no gross weakness of arms, no gross weakness of legs. Gross sensation intact. Course Course 1800: Pt updated on results. 1811: Discussed with Dr. Martins. Recommends admission this patient will need bronchoscopy as he has been failing outpatient management. Recommends restarting IV Zosyn. Request that the hospitalist team also recontact infectious disease. Also recommends guaifenesin DM 10 mL every 6 hours. 1854: Discussed with [facility] hospitalist. Administered Medications Docusate Sodium (Docusate Sodium 100 Mg Cap) 100 mg PO BID [facility] Stop: 01/29/22 20:59 Last Admin: 12/30/21 21:45 Dose: 100 mg Documented by: [id number] Enoxaparin Sodium (Enoxaparin Inj 40 Mg/0.4 Ml Syr) 40 mg SQ Q24H FRANCIS Stop: 01/29/22 20:59 Last Admin: 12/30/21 21:45 Dose: Not Given Documented by: [id number] Fluticasone Propionate (Fluticasone Propionate Na Spr 16 Gm Btl) 2 sprays NA HS [facility]; Protocol Stop: 01/29/22 20:59 Last Admin: 12/30/21 21:43 Dose: 2 sprays Documented by: [id number] Guaifenesin (Guaifenesin 600 Mg Tabcr) 1,200 mg PO BID FRANCIS Stop: 01/29/22 20:59 Last Admin: 12/30/21 21:44 Dose: 1,200 mg Documented by: [id number] Sodium Chloride (Nss 1000ml) 1,000 mls @ 125 mls/hr IV .Q8H FRANCIS Stop: 01/29/22 18:14 Last Admin: 12/30/21 19:23 Dose: 125 mls/hr Documented by: [id number] Discontinued Medications Piperacillin Sod/Tazobactam Sod (Zosyn) 4.5 gm in 120 mls @ 240 mls/hr IV NOW ONE Stop: 12/30/21 18:41 Last Infusion: 12/30/21 20:03 Dose: 0 mls/hr Documented by: [id number] Admin: 12/30/21 19:23 Dose: 240 mls/hr Documented by: [id number] Medical Decision Making Differential Diagnosis Differential diagnoses includes but is not limited to pneumonia, bronchitis, COPD/Asthma exacerbation, pneumothorax, pulmonary embolism, congestive heart failure, acute coronary syndrome Medical Records Attestation: I reviewed the patient's medical records. Home Medications Current Medication List: was personally reviewed by me Laboratory Data Attestation: I reviewed the patient's lab results. Result diagrams: 12/30/21 16:45 12/30/21 16:45 Lab Results 12/30/21 12/30/21 12/30/21 Range/Units 16:45 16:45 17:30 WBC 148.38 H* (4.8-10.8) K/uL RBC 2.75 L (4.7-6.1) M/uL Hgb 9.0 L (14.0-18.0) g/dL Hct 27.7 L (42-52) % MCV 100.7 H (80-100) fL MCH 32.7 (25-34) pg MCHC 32.5 (32-36) g/dL RDW Std Deviation 59.8 H (36.4-46.3) fL RDW Coeff of [place] 16.4 H (11.5-14.5) % Plt Count 220 (130-400) K/uL MPV 11.2 H (7.4-10.4) fL Smudge Cells Present Sodium 136 (136-145) mmol/L Potassium 5.1 (3.5-5.1) mmol/L Chloride 104 (98-107) mmol/L Carbon Dioxide 25 (21-32) mmol/L Anion Gap 7 (3-11) BUN 25 H (6-23) mg/dl Creatinine 1.08 (0.6-1.4) mg/dl Est Cr Clr Drug Dosing 53.8 ml/min Est GFR ( Amer) 76.9 ml/min Est GFR (Non-Af Amer) 66.3 ml/min BUN/Creatinine Ratio 23.1 H (10-20) Glucose 98 (70-99(Fasting)) mg/dl Calcium 9.5 (8.5-10.1) mg/dl Magnesium 2.1 (1.7-2.4) mg/dl Total Bilirubin 0.3 (0.2-1.0) mg/dl AST 19 (13-39) U/L ALT 14 (7-52) U/L Alkaline Phosphatase 139 H (34-104) U/L Troponin I < 0.03 (0-0.04) ng/ml B-Natriuretic Peptide 83 (0-100) pg/ml Total Protein 6.4 (6.0-8.3) gm/dl Albumin 3.5 (3.4-5.0) gm/dl Globulin 2.9 (2.5-4.0) gm/dl Albumin/Globulin Ratio 1.2 (0.9-2) Imaging Data Radiologist's Impression: Chest CT 12/30/21 16:45 CT chest diagnostic wo con CLINICAL HISTORY: recent pna, worsening cough, and continued shortness of breath and wheezing . Previous history of CLL COMPARISON STUDY: 11/17/2021 CT DOSE: 217.82 mGycm TECHNIQUE: Standard CT of the Chest was performed without IV contrast. A dose lowering technique was utilized adhering to the principles of ALARA. FINDINGS: Airway: The airway is clear. No endobronchial lesion is identified. Lungs: Compared to the previous CT examination, there are patchy alveolar o pacities present within the right lower lobe most characteristic of the presence of pneumonia. Previously identified right upper lobe and left lower lobe opacities have resolved. However, there is evidence for bronchiectasis with mucus plugging involving the anterior segment of the left upper lobe. The remainder of the lungs are clear. Pleura: There is no evidence for pleural effusion. There is no evidence for pneumothorax. Mediastinum: There has been interval worsening of pretracheal adenopathy. Additional mediastinal or hilar adenopathy is difficult to assess on these limited noncontrast images. There is again bilateral axillary adenopathy which appears unchanged. There is again evidence for marked bilateral adenopathy involving the base of the neck and supraclavicular region. Again, evaluation of adenopathy is limited by lack of intravenous contrast. The heart size is within normal limits. There is very minimal coronary artery calcification. The thoracic aorta is within normal limits. There is no evidence for pericardial effusion. Upper abdomen: The adrenal glands are normal bilaterally. There is no evidence for marked splenomegaly. Osseous structures: There is no acute osseous pathology. IMPRESSION: 1. Patchy alveolar opacities within the right lower lobe characteristic of the presence of pneumonia. 2. Evidence for bronchiectasis and mucous plugging involving the anterior segment of left upper lobe. 3. Previously identified alveolar opacities within the right upper lobe and left lower lobe have resolved. 4. Marked adenopathy is again seen at the base of the neck and infraclavicular regions. Is also again extensive bilateral axillary and pretracheal adenopathy. Evaluation of the adenopathy is limited on these noncontrast images. 5. Interval development of marked splenomegaly. ACT 112: Negative or not required by law. Electronically signed by: Patrice Booker M.D. 12/30/2021 5:45 PM MDM Narrative This is a 76-year-old male who presents due to worsening cough in the setting of complicated pulmonary history. 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 Patient was afebrile and hemodynamically stable, no overt hypoxia or increased work of breathing. CT of the chest did reveal a right lower lobe infiltrate, although it was improved compared to a prior where patient had a multifocal pneumonia. Case was discussed with pulmonology on-call who is familiar with the patient. Given prior sputum cultures and organisms known, they recommended restarting the patient on Zosyn. I do not suspect aspiration, patient with no history of dysphagia or prior aspiration. Patient and family made aware of all results, verbalized understanding, and were in agreement with plan. Case discussed with hospitalist. Several other lab abnormalities noted, however stable for the patient given the known history of CLL in addition. I do not suspect bacteremia/sepsis. An order was placed for continuous cardiac monitoring. The monitor shows a rate of _80_ with _normal sinus_ rhythm. Impression & Plan Pneumonia, CLL (chronic lymphocytic leukemia), Cough Discharge Plan Visit Data Chief Complaint: Shortness of Breath/Dyspnea Stated Complaint: SOB, LOSING WEIGHT, COUGH, SLEEP LOSS ED Provider: Sue Parekh Discharge Problem: Pneumonia, CLL (chronic lymphocytic leukemia), Cough Patient Disposition: Admitted As Inpatient Discharge Instructions Interventions: ED Discharge Assessment Last Done: 12/30/21 20:23 Discharge Problem: Pneumonia Qualifiers: Pneumonia type: due to unspecified organism Laterality: right Lung location: lower lobe of lung Qualified Code(s): J18.9 - Pneumonia, unspecified organism
[2021-12-30 17:21] LABS: Troponin I < 0.03 ng/ml (0-0.04)
[2021-12-30 17:23] LABS: Alanine Aminotransferase 14 U/L (7-52); Albumin Globulin Ratio 1.2 (0.9-2); Albumin Level 3.5 gm/dl (3.4-5.0); Alkaline Phosphatase 139 U/L (34-104); Anion Gap 7 (3-11); Aspartate Aminotransferase 19 U/L (13-39); BUN Creatinine Ratio 23.1 (10-20); Bilirubin,Total 0.3 mg/dl (0.2-1.0); Blood Urea Nitrogen 25 mg/dl (6-23); Calcium 9.5 mg/dl (8.5-10.1); Carbon Dioxide 25 mmol/L (21-32); Chloride 104 mmol/L (98-107); Creatinine Clr Calc Pharmacy 53.8 ml/min; Est GFR (African American) 76.9 ml/min; Est GFR (Non-African American) 66.3 ml/min; Globulin 2.9 gm/dl (2.5-4.0); Glucose 98 mg/dl (70-99(Fasting)); Magnesium 2.1 mg/dl (1.7-2.4); Potassium 5.1 mmol/L (3.5-5.1); Sodium 136 mmol/L (136-145); Total Protein 6.4 gm/dl (6.0-8.3)
--- NOTE | 2021-12-30 17:48 | CT Scan Report ---
CT chest diagnostic wo con CLINICAL HISTORY: recent pna, worsening cough, and continued shortness of breath and wheezing . Previ ous history of CLL COMPARISON STUDY: 11/17/2021 CT DOSE: 217.82 mGycm TECHNIQUE: Standard CT of the Chest was performed without IV contrast. A dose lowering technique was utilized adhering to the principles of ALARA. FINDINGS: Airway: The airway is clear. No endobronchial lesion is identified. Lungs: Compared to the previous CT examination, there are patchy alveolar opacities present within th e right lower lobe most characteristic of the presence of pneumonia. Previously identified right uppe r lobe and left lower lobe opacities have resolved. However, there is evidence for bronchiectasis wit h mucus plugging involving the anterior segment of the left upper lobe. The remainder of the lungs ar e clear. Pleura: There is no evidence for pleural effusion. There is no evidence for pneumothorax. Mediastinum: There has been interval worsening of pretracheal adenopathy. Additional mediastinal or h ilar adenopathy is difficult to assess on these limited noncontrast images. There is again bilateral axillary adenopathy which appears unchanged. There is again evidence for marked bilateral adenopathy involving the base of the neck and supraclavicular region. Again, evaluation of adenopathy is limited by lack of intravenous contrast. The heart size is within normal limits. There is very minimal coronary artery calcification. The tho racic aorta is within normal limits. There is no evidence for pericardial effusion. Upper abdomen: The adrenal glands are normal bilaterally. There is no evidence for marked splenomegal y. Osseous structures: There is no acute osseous pathology. IMPRESSION: 1. Patchy alveolar opacities within the right lower lobe characteristic of the presence of pneumonia. 2. Evidence for bronchiectasis and mucous plugging involving the anterior segment of left upper lobe. 3. Previously identified alveolar opacities within the right upper lobe and left lower lobe have reso lved. 4. Marked adenopathy is again seen at the base of the neck and infraclavicular regions. Is also again extensive bilateral axillary and pretracheal adenopathy. Evaluation of the adenopathy is limited on these noncontrast images. 5. Interval development of marked splenomegaly. ACT 112: Negative or not required by law. Electronically signed by: Patrice Booker M.D. 12/30/2021 5:45 PM
[2021-12-30 18:03] LABS: Smudge Cells Present
[2021-12-30] MEDS ORDERED: PIPERACILL/TAZOBAC CONSULT ACTIVE PRN ×2 (18:12→20:43)
[2021-12-30] MEDS ORDERED: PIPERACILLIN/TAZOBACTAM 4.5 GM/120 ML BAG IV ONE (18:12)
[2021-12-30] MEDS ORDERED: guaiFENesin/DEXTROM SYRUP 200MG/20MG 10ML UDC PO PRN (18:12)
[2021-12-30] MEDS: SODIUM CHLOR 7% 4 ML NEB NEB SCH (19:00)
[2021-12-30] MEDS: SODIUM CHLORIDE 0.9% 1000ML 1,000 ML IV SCH (19:23)
[2021-12-30] MEDS ORDERED: ACETAMINOPHEN 325 MG TAB PO PRN (20:03)
--- NOTE | 2021-12-30 20:11 | History & Physical Report ---
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 and discharged on IV zosyn (7 more days) admitted for Pneumonia Worsening Cough with SOB: -2/2 Pneumonia -CT chest: showed new Right lower opacities -COVID neg -will continue zosyn for now until pulm eval ----will consult ID for prelim mycobacterium intracellulare sputum culture -mucinex BID and albuterol q6hr -currently pt is doing well on room air CLL with elevated WBC and anemia: -hgb and wbc near baseline -continue with Iron supplement Asthma with possible COPD: -will continue home inhaler regimen Constipation: -c/w Colace BID Diet: Heart healthy DVT PPx:Lovenox Code Status:FULL CODE Emergency Contact: [phone] History of Present Illness Chief Complaint: worsening cough and SOB Primary Care Provider: Cordell Valle Pt is a 76 y/o M with 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 Denied any N/V or diarrhea. Denied any exposure to COVID or flu. Pt is also having chronic nasal congestion with worsening rhinorrhea. Recent sputum culture (11/16/21): No acid fast Bacilli. Prelim: Mycobacterium Intracellulare Per ER physician who spoke to Pulm (Dr. Martins): he recommended continuing zosyn, possible bronch and recommended ID consult Allergies Allergy/AdvReac Type Severity Reaction Status Date / Time rofecoxib Allergy Intermediate RASH,SWELLING, Verified 12/30/21 18:29 UNSTEADY GAIT/STUMBLING lamotrigine [From Lamictal] AdvReac Mild cannot Unverified 12/30/21 20:11 think straight, stumbling and falling. meperidine AdvReac Mild Vomiting Unverified 12/30/21 20:11 Home Medications Medication Instructions Recorded Confirmed Type omeprazole 20 mg tablet,delayed 20 mg PO QAM #0 cap 01/16/16 12/30/21 History release ascorbate calcium (vitamin C) 500 500 mg PO QAM 07/11/21 12/30/21 History mg tablet aspirin 81 mg tablet,delayed 81 mg PO QAM 07/11/21 12/30/21 History release ferrous sulfate 325 mg (65 mg 325 mg PO QAM 07/11/21 12/30/21 History iron) tablet (Feosol) L.acidoph-L.rhamn-B.bifidum-B.long 1 tab PO QAM 11/11/21 12/30/21 History 12.9 mg (2 billion cell) tablet, (Probiotic Acidophilus [facility]) multivitamin with minerals 1 tab PO QAM 11/11/21 12/30/21 History (Multiple Vitamin-Minerals) zinc 50 mg tablet 50 mg PO QAM 11/12/21 12/30/21 History acetaminophen 325 mg tablet 650 mg PO Q4H PRN #100 tab 11/17/21 12/30/21 Rx docusate sodium 100 mg capsule 100 mg PO BID #60 cap 11/19/21 12/30/21 Rx (Colace) Flutter Valve #1 ea 11/29/21 12/30/21 Rx fluticasone furoate 200 1 inh INHALATION QAM 12/30/21 12/30/21 History mcg-vilanterol 25 mcg/dose inhalation powder (Breo Ellipta) guaifenesin 1,200 mg tablet, 1,200 mg PO BID 12/30/21 12/30/21 History extended release 12 hr (Mucinex) mometasone 50 mcg/actuation nasal 2 spray INTRANASAL HS 12/30/21 12/30/21 History spray Past Med/Surg History Medical History (Updated 12/30/21 @ 20:17 by Yenny Boone MD) Asthma BPH (benign prostatic hyperplasia) Tuberculosis UTI (urinary tract infection) Social History Smoking Status: Never smoker Hx Alcohol Use: No Hx Substance Use: No Preferred Language: Zambian Communication Ability: Effective Ship Keeper Required: No Beliefs That Will Affect Care: None Current Living Situation: Spouse Feels Safe at Home: Yes Assistive Devices: None Review of Systems Review of Systems: At least 10 Review of systems were reviewed and all negative except as indicated in HPI Physical Exam Physical Exam: General:. NAD, well developed, well nourished, average body habitus HEENT:. Normocephalic and atraumatic, Normal Conjunctiva, EOMI, Sclera is non- icteric Lungs:.initially had expiratory wheezing which resolved with coughing. Fair air entry b/l, no crackles Heart:. Normal S1, S2, no murmur Abdominal:. ND, Soft, NT MSK:. No deformities of UE and LE, No leg edema Psych:. AAOx3, normal affect Results & Data Results & Data ([facility]) Vital Signs (Past 12 Hours) Vital Signs Temp Pulse Pulse Resp BP BP Pulse Ox 12/30/21 18:04 77 18 111/70 96 12/30/21 16:18 70 22 125/63 94 12/30/21 16:07 37.1 C 69 22 120/75 95 Laboratory Results Short CBC 12/30/21 Range/Units 16:45 WBC 148.38 H* (4.8-10.8) K/uL Hgb 9.0 L (14.0-18.0) g/dL Hct 27.7 L (42-52) % Plt Count 220 (130-400) K/uL BMP 12/30/21 16:45 Sodium 136 Potassium 5.1 Chloride 104 Carbon Dioxide 25 BUN 25 H Creatinine 1.08 Glucose 98 Calcium 9.5 Cardiac Enzymes 12/30/21 Range/Units 16:45 Troponin I < 0.03 (0-0.04) ng/ml Liver Function 12/30/21 Range/Units 16:45 Total Bilirubin 0.3 (0.2-1.0) mg/dl AST 19 (13-39) U/L ALT 14 (7-52) U/L Alkaline Phosphatase 139 H (34-104) U/L Albumin 3.5 (3.4-5.0) gm/dl Diagnostic Findings Chest CT 12/30/21 16:45 CT chest diagnostic wo con CLINICAL HISTORY: recent pna, worsening cough, and continued shortness of breath and wheezing . Previous history of CLL COMPARISON STUDY: 11/17/2021 CT DOSE: 217.82 mGycm TECHNIQUE: Standard CT of the Chest was performed without IV contrast. A dose lowering technique was utilized adhering to the principles of ALARA. FINDINGS: Airway: The airway is clear. No endobronchial lesion is identified. Lungs: Compared to the previous CT examination, there are patchy alveolar opacities present within the right lower lobe most characteristic of the presence of pneumonia. Previously identified right upper lobe and left lower lobe opacities have resolved. However, there is evidence for bronchiectasis with mucus plugging involving the anterior segment of the left upper lobe. The remainder of the lungs are clear. Pleura: There is no evidence for pleural effusion. There is no evidence for pneumothorax. Mediastinum: There has been interval worsening of pretracheal adenopathy. Additional mediastinal or hilar adenopathy is difficult to assess on these limited noncontrast images. There is again bilateral axillary adenopathy which appears unchanged. There is again evidence for marked bilateral adenopathy involving the base of the neck and supraclavicular region. Again, evaluation of adenopathy is limited by lack of intravenous contrast. The heart size is within normal limits. There is very minimal coronary artery calcification. The thoracic aorta is within normal limits. There is no evidence for pericardial effusion. Upper abdomen: The adrenal glands are normal bilaterally. There is no evidence for marked splenomegaly. Osseous structures: There is no acute osseous pathology. IMPRESSION: 1. Patchy alveolar opacities within the right lower lobe characteristic of the presence of pneumonia. 2. Evidence for bronchiectasis and mucous plugging involving the anterior segment of left upper lobe. 3. Previously identified alveolar opacities within the right upper lobe and left lower lobe have resolved. 4. Marked adenopathy is again seen at the base of the neck and infraclavicular regions. Is also again extensive bilateral axillary and pretracheal adenopathy. Evaluation of the adenopathy is limited on these noncontrast images. 5. Interval development of marked splenomegaly. ACT 112: Negative or not required by law. Electronically signed by: Patrice Booker M.D. 12/30/2021 5:45 PM Code Status & VTE Plan VTE Prophylaxis Plan VTE Prophylaxis will be ordered: Yes (1) Anemia Anemia type: unspecified type Qualified Code(s): D64.9 - Anemia, unspecified (2) Dyspnea Dyspnea type: shortness of breath Qualified Code(s): R06.02 - Shortness of breath
[2021-12-30] MEDS ORDERED: guaiFENesin 600 MG TABCR PO SCH (21:00)
[2021-12-30] MEDS: FLUTICASONE PROPIONATE NA SPR 16 GM BTL SCH (21:43)
[2021-12-30] MEDS: ENOXAPARIN INJ 40 MG/0.4 ML SYR SQ SCH (21:45)
[2021-12-30] MEDS: DOCUSATE SODIUM 100 MG CAP PO SCH (21:45)
[2021-12-31] MEDS: PIPERACILLIN/TAZOBACTAM 3.375 GM in DEXTROSE 5% 100 ML IV SCH ×3 (02:18→18:28)
[2021-12-31] MEDS: SODIUM CHLORIDE 0.9% 1000ML 1,000 ML IV SCH ×3 (02:18→20:40)
[2021-12-31] MEDS: ALBUTEROL HFA 8 GM INHALER INH SCH ×3 (02:38→14:31)
[2021-12-31 07:41] LABS: Hematocrit (blood only) 27.4 % (42-52); Mean Corpuscular Hemoglobin 32.8 pg (25-34); Mean Corpuscular Hgb Conc 32.8 g/dL (32-36); Mean Platelet Volume 10.8 fL (7.4-10.4); Platelet Count 214 K/uL (130-400); RDW Coefficient of Variation 16.2 % (11.5-14.5); RDW Standard Deviation 58.7 fL (36.4-46.3); Red Blood Count 2.74 M/uL (4.7-6.1); White Blood Count 148.08 K/uL (4.8-10.8)
[2021-12-31 07:52] LABS: Albumin Globulin Ratio 1.3 (0.9-2); Albumin Level 3.4 gm/dl (3.4-5.0); BUN Creatinine Ratio 19.3 (10-20); Bilirubin,Total 0.4 mg/dl (0.2-1.0); Calcium 9.4 mg/dl (8.5-10.1); Est GFR (Non-African American) 62.1 ml/min; Globulin 2.7 gm/dl (2.5-4.0); Potassium 4.1 mmol/L (3.5-5.1); Total Protein 6.1 gm/dl (6.0-8.3)
[2021-12-31 08:27] LABS: ALC (manual) 146.75 K/uL (1.2-3.4); ANC (manual) 1.33 K/uL (1.4-6.5); Lymphocytes # (manual) 146.75 K/uL (1.2-3.4); Lymphocytes % (manual) 99.1 %; Neutrophils # (manual) 1.33 K/uL (1.4-6.5); Neutrophils % (manual) 0.9 %; Smudge Cells Present
--- NOTE | 2021-12-31 08:39 | Pulmonary Consultation ---
Date of Consultation December 31, 2021 Assessment & Plan (1) Multifocal pneumonia: (2) Fever: (3) Dyspnea: Dyspnea type: shortness of breath Qualified Code(s): R06.02 - Shortness of breath (4) CLL (chronic lymphocytic leukemia): (5) Asthma: CT chest 12/30/2021 personally reviewed: Premature opacities appreciated in the lingula Groundglass opacities appreciated in the lingula and right middle Consolidative changes appreciated bilateral lower lobes more on the right side Chronic left upper lobe scarring Persistent mediastinal lymphadenopathy unchanged from before Compared to the CAT scan done 11/17/2021 there is improvement in the right upper lobe as well as left lower lobe consolidative process --Recurrent multilobar pneumonia with abnormal chest CT 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 Pierre Not on any treatment right now Plan: Continue with Zosyn given the history of Achromobacter Follow-up sputum culture Recommend ID consultation Add nebulized hypertonic saline with duo nebs Guaifenesin-DM [id number]. The patient still complains of significant cough change to guaifenesin with codeine Aspergillus IgE, IgG, IgE, mycoplasma IgM as well as urine Legionella ordered For bronchoscopy tomorrow Risk and benefit of the procedure explained to the patient Dr. Oconnell is going to take over pulmonary service tomorrow. Please note the above document was generated using voice recognition software. It may contain grammatical, syntax or spelling errors.Any formal questions or concerns about the content, text or information contained within the body of this dictation should be directly addressed to the provider for clarification. History of Present Illness Attending Physician: Ba Tan MD History of Present Illness 76-year-old male coming to pulmonary for worsening cough, patient has failed outpatient antibiotic therapy Past medical history: BPH, GERD,CLL, history of TB in 1968 s/p treatment, diagnosed asthma in the 40s currently on Breo Patient was recently hospitalized back in November, he sputum culture at that time showed multidrug-resistant Achromobacter, he finished total 14 days of Zosyn at that time. He had another sputum culture as an outpatient which is growing LULI He started complaining that his phlegm is coming back. Not able to sleep at night since last couple of days Cough is usually hacking. Complains of chest congestion and inability to bring up the phlegm easily He does bring up phlegm which is mostly clear to yellow in color. Denies any hemoptysis. Low-grade fever. Denies any significant chest pain. He does complain of postnasal drip. Denies any dysuria or diarrhea. No recent travel history Patient has been immunized and even possible against COVID-19 He is compliant with his inhalers. Social history: Non-smoker,no alcohol use, no illicit drug use. 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 Worked in [employer] for approximately 1 year where he was exposed to gases from [employer] Pets: None. No birds or poultry nearby Allergies: Seasonal. Does not take any medications for it Asthma: No family history of asthma.Questionable childhood history of asthma and was never officially diagnosed Lung cancer: No history of lung cancer in the family Allergies Allergy/AdvReac Type Severity Reaction Status Date / Time rofecoxib Allergy Intermediate RASH,SWELLING, Verified 12/30/21 18:29 UNSTEADY GAIT/STUMBLING lamotrigine [From Lamictal] AdvReac Mild cannot Unverified 12/30/21 20:11 think straight, stumbling and falling. meperidine AdvReac Mild Vomiting Unverified 12/30/21 20:11 Home Medications Medication Instructions Recorded Confirmed Type omeprazole 20 mg tablet,delayed 20 mg PO QAM #0 cap 01/16/16 12/30/21 History release ascorbate calcium (vitamin C) 500 500 mg PO QAM 07/11/21 12/30/21 History mg tablet aspirin 81 mg tablet,delayed 81 mg PO QAM 07/11/21 12/30/21 History release ferrous sulfate 325 mg (65 mg 325 mg PO QAM 07/11/21 12/30/21 History iron) tablet (Feosol) L.acidoph-L.rhamn-B.bifidum-B.long 1 tab PO QAM 11/11/21 12/30/21 History 12.9 mg (2 billion cell) tablet, (Probiotic Acidophilus Michelle) multivitamin with minerals 1 tab PO QAM 11/11/21 12/30/21 History (Multiple Vitamin-Minerals) zinc 50 mg tablet 50 mg PO QAM 11/12/21 12/30/21 History acetaminophen 325 mg tablet 650 mg PO Q4H PRN #100 tab 11/17/21 12/30/21 Rx docusate sodium 100 mg capsule 100 mg PO BID #60 cap 11/19/21 12/30/21 Rx (Colace) Flutter Valve #1 ea 11/29/21 12/30/21 Rx fluticasone furoate 200 1 inh INHALATION QAM 12/30/21 12/30/21 History mcg-vilanterol 25 mcg/dose inhalation powder (Breo Ellipta) guaifenesin 1,200 mg tablet, 1,200 mg PO BID 12/30/21 12/30/21 History extended release 12 hr (Mucinex) mometasone 50 mcg/actuation nasal 2 spray INTRANASAL HS 12/30/21 12/30/21 History spray Patient History Medical History (Updated 12/31/21 @ 01:14 by Sue Parekh DO) Asthma BPH (benign prostatic hyperplasia) Tuberculosis UTI (urinary tract infection) Social History Smoking Status: Never smoker Second Hand Exposure: No; Do You Dip or Chew Tobacco: No; Tobacco Cessation Education Requested by Patient: No Hx Alcohol Use: No Hx Substance Use: No Preferred Language: Grenadian Communication Ability: Effective Market President Required: No Beliefs That Will Affect Care: None Current Living Situation: Spouse Other Information That Helps Us Care for You: No Feels Safe at Home: Yes Safety Concerns: Feels Safe At This Time Assistive Devices: None Review of Systems Review of Systems: All systems reviewed & are unremarkable except as noted in HPI & below Physical Exam Physical Exam: Constitutional: No acute distress HEENT: EOMI, PERRLA Respiratory system: Decreased air entry bilaterally, no wheeze, no rhonchi, positive crackles bilateral lower lobes CVS: S1-S2 positive Abdomen: Soft, nontender, nondistended, positive bowel sounds x4 Extremities: +2 pulses bilaterally radialis/ dorsalis pedis, no cyanosis, no edema Neuro: Awake alert oriented x3 Psych: Normal mood and affect G/U: No [place] Skin: no rashes, warm and dry Lymphatic: no cervical or axillary lymphadenopathy Results & Data Results & Data ([facility]) Vital Signs (Past 12 Hours) Vital Signs Temp Pulse Pulse Resp BP Pulse Ox 12/31/21 07:45 73 18 94 12/31/21 07:18 36.6 C 66 14 132/65 91 12/31/21 02:38 80 18 91 Laboratory Results 12/31/21 06:36 12/31/21 06:36 PG Care Time/CCT Total # of Minutes Spent Total Time Spent with Patient: Total time spent is greater than 50% in coordination of care (as documented) at patient's floor/unit and/or counseling patient: Coding Level of Care Code 72335 Initial Inpt Care Lvl 3 Diagnoses Multifocal pneumonia J18.9 Fever R50.9 Dyspnea R06.02 Dyspnea type: shortness of breath CLL (chronic lymphocytic leukemia) C91.10 Asthma J45.909
[2021-12-31] MEDS: ASCORBIC ACID 500 MG TAB PO SCH (09:14)
[2021-12-31] MEDS: ADVANCED PROBIOTIC 1250 MG CAPSULE PO SCH (09:14)
[2021-12-31] MEDS: DOCUSATE SODIUM 100 MG CAP PO SCH ×2 (09:14→20:40)
[2021-12-31] MEDS: ASPIRIN 81 MG ECTAB PO SCH (09:14)
[2021-12-31] MEDS: PANTOprazole 40 MG TAB PO SCH (09:14)
[2021-12-31] MEDS: FERROUS SULFATE 325 MG TAB PO SCH (09:14)
[2021-12-31] MEDS: ZINC SULFATE 220 MG CAPSULE PO SCH (09:15)
[2021-12-31] MEDS: CEROVITE ADV FORMULA TAB PO SCH (09:15)
[2021-12-31] MEDS: FLUTICASONE/VILANTEROL 200/25MCG 14 PUFFS/INHALER INH SCH (09:15)
[2021-12-31] MEDS: guaiFENesin/DEXTROM SYRUP 200MG/20MG 10ML UDC PO SCH ×3 (10:10→20:41)
--- NOTE | 2021-12-31 10:41 | Electrocardiogram Report ---
Test Reason : Blood Pressure : / mmHG Vent. Rate : 063 BPM Atrial Rate : 063 BPM P-R Int : 160 ms QRS Dur : 092 ms QT Int : 398 ms P-R-T Axes : 074 041 051 degrees QTc Int : 407 ms Normal sinus rhythm Normal ECG When compared with ECG of 11-NOV-2021 23:44, No significant change was found Confirmed by Amari Key ([id number]) on 12/31/2021 10:41:18 AM Referred By: REFERRED SELF Confirmed By:Amari Key
[2021-12-31] MEDS: ALBUT/IPRATROP 3MG/0.5MG NEB 3 ML VIAL NEB SCH ×3 (10:43→19:56)
--- NOTE | 2021-12-31 10:46 | Electrocardiogram Report ---
Test Reason : Blood Pressure : / mmHG Vent. Rate : 068 BPM Atrial Rate : 068 BPM P-R Int : 158 ms QRS Dur : 090 ms QT Int : 386 ms P-R-T Axes : 073 054 056 degrees QTc Int : 410 ms Normal sinus rhythm Normal ECG When compared with ECG of 30-DEC-2021 16:31, (unconfirmed) No significant change was found Confirmed by Amari Key ([id number]) on 12/31/2021 10:45:50 AM Referred By: REFERRED SELF Confirmed By:Amari Key
--- NOTE | 2021-12-31 14:18 | Hospitalist Progress Note ---
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 Pt reports having worsening respiratory symtomps 1-3 weeks after iv zosyn was completed from last admission. He is being managed for the following: #. Worsening Cough with SOB #. Recurrent multi lobar pneumonia #. LULI Patient presented with cough with red-brown to yellow sputum. Admitting CT chest reviewed. Patient does have elevated WBC due to CLL. Admitting Covid test negative. Recent 11/16 sputum Cx grew LULI Patient has been afebrile. Continue with Zosyn, Mucinex and albuterol. Nebulized hypertonic saline and guaifenasin f/u 12/30 sputum Cx. ID consulted, awaiting recommendation Pulmonology evaluated: appreciate recs, Ig levesl and aspergillus/mycoplasma/legionella sent. Bronchoscopy parminder NPO midnight, lovenox on hold. #. CLL with elevated WBC and anemia: -hgb and wbc near baseline -continue with Iron supplement -f/u Dr Pierre, plan to start on Rx after LULI is taken care of per pt. #. Asthma with possible COPD: Never a smoker per pt will continue home inhaler regimen #. Constipation: -c/w Colace BID Diet: Heart healthy DVT PPx:Lovenox on hold for bronchoscopy parminder Code Status:FULL CODE Emergency Contact: [phone] Admission and Anticipated Discharge Date Admission Date: December 30, 2021 Subjective Patient seen and examined at bedside as a follow-up of recurrent multilobar pneumonia with abnormal CT chest, history of TB, history of CLL . Patient lying in bed, on room air, NAD, no new acute events overnight. Patient reports coughing with reddish-brown to yellow sputum. Patient denies any blood in the sputum, denies any chest pain/belly pain/acute changes in bowel or bladder habit or other review of symptoms. Physical Exam Physical Exam: GENERAL: Alert and oriented x3. NAD, on RA. HEENT: No pallor, no icterus. Pupils equal, round and reactive to light. Oral mucosa moist. NECK: No JVD, no neck masses. HEART: S1 and S2 heard. Regular rate and rhythm. No murmur, no gallop. RESPIRATORY SYSTEM: Normal AP diameter. No accessory muscle use. b/l wheezing and crackles. Cough noted at bedside conversation. ABDOMEN: Soft, bowel sounds present, nontender, no distention. CENTRAL NERVOUS SYSTEM: No facial droop. Speech is clear. Obeys simple commands. Moves extremities. EXTREMITIES: No edema, no erythema seen. Results & Data Results & Data ([facility]) Vital Signs (Past 12 Hours) Vital Signs Temp Pulse Pulse Resp BP Pulse Ox 12/31/21 10:44 76 16 93 12/31/21 07:45 73 18 94 12/31/21 07:18 36.6 C 66 14 132/65 91 12/31/21 02:38 80 18 91 (1) Anemia Anemia type: unspecified type Qualified Code(s): D64.9 - Anemia, unspecified (2) Dyspnea Dyspnea type: shortness of breath Qualified Code(s): R06.02 - Shortness of breath
[2021-12-31] MEDS: FLUTICASONE PROPIONATE NA SPR 16 GM BTL SCH (20:41)
[2022-01-01] MEDS: PIPERACILLIN/TAZOBACTAM 3.375 GM in DEXTROSE 5% 100 ML IV SCH ×3 (01:51→18:11)
[2022-01-01] MEDS: guaiFENesin/DEXTROM SYRUP 200MG/20MG 10ML UDC PO SCH ×4 (03:05→21:47)
[2022-01-01] MEDS: SODIUM CHLORIDE 0.9% 1000ML 1,000 ML IV SCH ×2 (03:05→12:13)
[2022-01-01 06:55] LABS: Hematocrit (blood only) 25.9 % (42-52); Hemoglobin 8.6 g/dL (14.0-18.0); Mean Corpuscular Hemoglobin 33.3 pg (25-34); Mean Corpuscular Hgb Conc 33.2 g/dL (32-36); Mean Corpuscular Volume 100.4 fL (80-100); Mean Platelet Volume 10.7 fL (7.4-10.4); Platelet Count 221 K/uL (130-400); RDW Coefficient of Variation 16.4 % (11.5-14.5); RDW Standard Deviation 59.7 fL (36.4-46.3); Red Blood Count 2.58 M/uL (4.7-6.1)
[2022-01-01 07:06] LABS: BUN Creatinine Ratio 14.3 (10-20); Calcium 9.2 mg/dl (8.5-10.1); Creatinine Clr Calc Pharmacy 49.9 ml/min; Est GFR (African American) 73.6 ml/min; Est GFR (Non-African American) 63.5 ml/min; Potassium 4.3 mmol/L (3.5-5.1)
[2022-01-01] MEDS: ALBUT/IPRATROP 3MG/0.5MG NEB 3 ML VIAL NEB SCH ×4 (07:21→19:13)
[2022-01-01] MEDS: SODIUM CHLOR 7% 4 ML NEB NEB SCH ×2 (07:22→19:14)
[2022-01-01] MEDS: FLUTICASONE/VILANTEROL 200/25MCG 14 PUFFS/INHALER INH SCH (08:16)
[2022-01-01] MEDS: ZINC SULFATE 220 MG CAPSULE PO SCH (08:18)
[2022-01-01] MEDS: PANTOprazole 40 MG TAB PO SCH (08:19)
[2022-01-01] MEDS: CEROVITE ADV FORMULA TAB PO SCH (08:19)
[2022-01-01] MEDS: ASPIRIN 81 MG ECTAB PO SCH (08:19)
[2022-01-01] MEDS: ASCORBIC ACID 500 MG TAB PO SCH (08:20)
[2022-01-01] MEDS: DOCUSATE SODIUM 100 MG CAP PO SCH ×2 (08:20→21:48)
[2022-01-01] MEDS: ADVANCED PROBIOTIC 1250 MG CAPSULE PO SCH (08:21)
[2022-01-01] MEDS: FERROUS SULFATE 325 MG TAB PO SCH (08:21)
[2022-01-01] MEDS ORDERED: MIDAZOLAM HCL 5 MG/ML 1 ML VIAL ONE (10:42)
[2022-01-01] MEDS ORDERED: fentaNYL citrate 100 MCG/2 ML VIAL ONE (10:43)
--- NOTE | 2022-01-01 11:12 | Pre Anesthesia Assessment ---
Date of Service January 01, 2022 Pre Sedation Assessment Vital Signs Temp Pulse Resp BP Pulse Ox 01/01/22 07:27 78 18 94 01/01/22 07:14 36.8 C 64 18 149/70 H 92 12/31/21 22:50 36.6 C 66 17 128/54 L 93 12/31/21 19:56 87 14 90 12/31/21 15:12 36.9 C 64 16 109/61 94 12/31/21 15:06 80 16 98 Pre-Sedation Airway Assessment Smoking Status: Never smoker Hx Sleep Apnea: No Short, Thick Neck: No Thyromental Distance: > or= 3.5 Finger Breadths Oral Cavity: + WNL Mallampati Class: II ASA: ASA3 NPO Status Date of Last Intake of Fluids: 12/31/21 Time of Last Intake of Fluids: 23:59 Date of Last Intake of Solid Food: 01/01/22 Time of Last Intake of Solid Foods: 17:30 Notes The planned sedation has been discussed with the patient. Informed Consent was obtained. I have identified the patient, determined the appropriateness of sedation and have assessed the patient immediately prior to the procedure. All medicine(s) and interventions are by my order.
--- NOTE | 2022-01-01 11:12 | History & Physical Bridge Note ---
Date of Service January 01, 2022 History & Physical Bridge Note I have examined the patient, reviewed the History & Physical and in the interval since the performance of the History & Physical I have noted the following changes of clinical significance: no changes noted
--- NOTE | 2022-01-01 11:31 | Post Anesthesia Assessment ---
Date of Service January 01, 2022 Post Sedation Assessment Vital Signs Temp Pulse Pulse Resp BP BP Pulse Ox 01/01/22 11:26 78 18 166/93 H 93 01/01/22 11:21 78 18 158/62 H 94 01/01/22 11:20 78 18 157/80 H 94 01/01/22 11:15 76 18 156/65 H 93 01/01/22 11:10 77 18 172/83 H 97 01/01/22 11:05 73 18 165/82 H 97 01/01/22 07:27 78 18 94 01/01/22 07:14 36.8 C 64 18 149/70 H 92 12/31/21 22:50 36.6 C 66 17 128/54 L 93 12/31/21 19:56 87 14 90 12/31/21 15:12 36.9 C 64 16 109/61 94 12/31/21 15:06 80 16 98 Recovery Score Activity: Moves 4 extremities Respiration: Deep Breath/Cough Circulation: +/-20% PreAnes Value Consciousness: Arouseable (by name) Oxygen Saturation: O2 needed for >90% Post Anesthesia Score: 8 Discharge Sedation Level of Care: Fast Track Phase II Post Sedation Plan On clinical assessment, the patient appears to have tolerated the sedation without complications. Patient is recovering as anticipated. Patient will continue to be monitored by nursing and may be discharged when sedation discharge criteria are met per below protocol. Upon Completions of procedure up to 15 minutes continue every 5 minute vital signs and the P.A.R. score; then discharge to a Phase I or Fast Track to Phase II per the following guidelines: * Discharge Patient to appropriate Phase II area if PAR is 8 or greater or return to pre- procedure baseline. The post - procedure orders will be as directed. * If PAR score is less than 8 or not return to pre-procedure baseline then patient will follow Phase I monitoring till PAR is reached for Phase II. The Phase I may be done in procedure room or may call to secure a Phase I area. * If naloxone or flumazenil are used for reversal, hold in Phase I for continued monitoring from when last reversal dose was given for a minimum of 60 minutes or longer pending the nurse and/or physician discretion of patient condition before discharge to Phase II. Please call the Sedation Physician to re-evaluate and complete post-note for discharge to Phase II area. Do NOT discharge from procedure sedation or Phase 1 until post- sedation eval uation note is complete by procedure /sedation MD Sedation Discharge Instructions to be given to the patient at discharge to home.
--- NOTE | 2022-01-01 11:43 | Procedure Note ---
Procedure Note Date of Service January 01, 2022 Supervising Physician Co-Signing Physician Notes Procedure: Fiberoptic bronchoscopy Bronchoalveolar lavaget Conscious sedation Provider: Aric Oconnell MD Consent: Signed by patient and timeout verified prior to procedure. Sedation start: 111 Sedation end: 112 Conscious sedation: 100 mcg fentanyl, 4 mg Versed, topical lidocaine per RT protocol Indication: Abnormal CT scan Procedure: Patient was brought to the bronchoscopy suite. Consent was verified. Appropriate radiographic studies had been reviewed prior to the procedure. Standard monitoring was applied. Oxygen was administered. Patient was noted to have a few PVCs prior to commencement of the procedure. No significant runs of arrhythmia or bigeminy was noted. He remained hemodynamically stable throughout the procedure After topical anesthesia of the airways per respiratory therapy protocol, the fiberoptic scope was advanced through the right nares. Oropharynx was unremarkable. Vocal cords were visualized and were visualized and normal in function and appearance. Topical anesthesia of the cords was achieved with instillation of lidocaine through the scope. Scope was then passed through the vocal cords. The trachea was midline. Main mindi was sharp. Anesthesia of the lower airways was achieved with instillation of lidocaine through the scope. A sequential and systematic examination of the lower airways was conducted. The right-sided airways were normal in anatomic configuration and the mucosa appeared normal. There were some mucoid secretions emanating from the lower lobes on the right. Left-sided airways were patent and demonstrated normal anatomic configuration and the mucosa appeared normal. Once the inspection bronchoscopy was completed, the scope was wedged into the posterior segment of the right lower lobe. A BAL was performed with instillation of 3 aliquots of 60 cc saline. Return on the first 2 was suboptimal due to collapsibility of the airways however the third return was adequate with greater than 50% returned and was slightly cloudy. No evidence of hemorrhage. The bronchoscope was then removed from the airways. The patient tolerated the procedure well without obvious complication. Patient was returned to the recovery room. Impression: 1. Relatively normal inspection bronchoscopy with some mucoid secretions emanating from the right lower lobe. 2. Successful BAL posterior segment right lower lobe. Await cytology and microbiologic analysis. 3. PVCs: Per primary service Coding CPT Codes Sedation/Anesthesia - Sedation/Anesthesia: 65488 Mod Sedation by the same physician;Init15 Min Child Age 5 & Up ([id number]) Sedation/Anesthesia - Sedation/Anesthesia: 10079 Mod Sedation by the same physician; Ea [id number] Minutes ([id number]) Pulmonary/Thoracic - Pulmonary and Thoracic: 17763 Dx bronchoscopy/BAL ([id number]) [facility] [place] Procedure Codes (Charges) Pulmonary/Thoracic Procedure 1: Pulmonary and Thoracic: 15647 Dx bronchoscopy/BAL Sedation/Anesthesia Procedure 2: Sedation/Anesthesia: 09276 Mod Sedation by the same physician;Init15 Min Child Age 5 & Up Total Sedation Time (minutes): 16 Procedure 3: Sedation/Anesthesia: 81701 Mod Sedation by the same physician; Ea [id number] Minutes Total Sedation Time (minutes): 16
--- NOTE | 2022-01-01 11:51 | Pulmonology Progress Note ---
Date of Service January 01, 2022 Assessment & Plan (1) Multifocal pneumonia: (2) Fever: (3) Dyspnea: Dyspnea type: shortness of breath Qualified Code(s): R06.02 - Shortness of breath (4) CLL (chronic lymphocytic leukemia): (5) Asthma: Plan: Impression: 76-year-old male with history of CLL and hypogammaglobulinemia with recurrent pneumonia. He grew Achromobacter previously and sputum cultures from last month grew Mycobacterium intracellulare. He was admitted with respiratory symptoms and CT scan showed persistent abnormalities in the lung bases. He completed bronchoscopy with BAL 01/01/2022. Recommendations: 1. Recurrent pneumonia in immunocompromised patient. Patient is currently day #3 Zosyn. His white count is elevated due to CLL so is not a reliable indicator of response to therapy. ID consultation is pending. He is not demonstrated fevers. Unclear if this is related to the Achromobacter or potentially the nontuberculous mycobacterial infection. NTM infections especially in patients with immunodeficiency can be difficult to retreat and typically require over 18 months of antibiotics. Regiment would consist of macrolide with rifampin and ethambutol. Await ID recommendations. Continue Zosyn for now. Would avoid macrolide therapy given his NTM history. Bronchoscopy with BAL obtained and await microbiologic and cytologic analysis of bronchoalveolar lavage. 2. Asthma: Patient's not overtly bronchospastic now. No indication for steroids. Continue albuterol Atrovent 3. Hypoxemic respiratory failure: Continue supplemental oxygen titrated to keep saturations at or above 88%. Likely secondary to #1 4. Bronchiectasis: Unclear if related to #1. Continue hypertonic saline's and guaifenesin. Can try a codeine-containing cough syrup as cough suppressant if needed. Please note the above document was generated using voice recognition software. It may contain grammatical, syntax or spelling errors.Any formal questions or concerns about the content, text or information contained within the body of this dictation should be directly addressed to the provider for clarification. Admission and Anticipated Discharge Date Admission Date: December 30, 2021 Subjective Patient seen and examined. EMR reviewed. Discussed with off going deaf teacher. The patient continues to have paroxysms of cough. He is n.p.o. for bronchoscopy this morning. Please see separate procedure notes. He denies chest pain or palpitations. No fevers overnight. He remains on broad-spectrum antibiotics. Review of Systems Review of Systems: All systems reviewed & are unremarkable except as noted in Subjective Physical Exam Constitutional: WD/WN, vitals as above Neck: trachea midline, no thyromegaly Respiratory: normal respiratory effort, lungs clear to auscultation Cardiovascular: RRR, no murmur, no edema Gastrointestinal (Abdomen): normal bowel sounds, soft, nontender, no hepatosplenomegaly Musculoskeletal: Extremities: extremities normal to inspection Skin: no rashes, warm and dry Neurologic: Nonfocal exam Lymphatic: no cervical lymphadenopathy Results & Data Results & Data ([facility]) Vital Signs (Past 12 Hours) Vital Signs Temp Pulse Pulse Resp BP BP Pulse Ox 01/01/22 11:42 36.6 C 78 20 140/69 92 01/01/22 11:27 36.7 C 83 20 178/72 H 96 01/01/22 11:26 78 18 166/93 H 93 01/01/22 11:21 78 18 158/62 H 94 01/01/22 11:20 78 18 157/80 H 94 01/01/22 11:15 76 18 156/65 H 93 01/01/22 11:10 77 18 172/83 H 97 01/01/22 11:05 73 18 165/82 H 97 01/01/22 07:27 78 18 94 01/01/22 07:14 36.8 C 64 18 149/70 H 92 Laboratory Results 01/01/22 05:33 01/01/22 05:33 Diagnostic Findings Films were independently reviewed. No new imaging PG Care Time/CCT Total # of Minutes Spent Total Time Spent with Patient: Total time spent is greater than 50% in coordination of care (as documented) at patient's floor/unit and/or counseling patient: Coding Level of Care Code 48004 Subseq Hosp Care Lvl 3 Diagnoses Multifocal pneumonia J18.9 Fever R50.9 Dyspnea R06.02 Dyspnea type: shortness of breath CLL (chronic lymphocytic leukemia) C91.10 Asthma J45.909
[2022-01-01 14:15] LABS: Eosinophil Body Fluid Man 0 %; Fluid Mono/Macrophage 57 %; Lymphocyte Body Fluid Man 30 %; Neutrophil Body Fluid Man 13 %
--- NOTE | 2022-01-01 16:34 | Hospitalist Progress Note ---
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 Pt reports having worsening respiratory symtomps 1-3 weeks after iv zosyn was completed from last admission. He is being managed for the following: #. Worsening Cough with SOB #. Recurrent multi lobar pneumonia #. LULI Patient presented with cough with red-brown to yellow sputum. Admitting CT chest reviewed. Patient does have elevated WBC due to CLL. Admitting Covid test negative. Recent 11/16 sputum Cx grew LULI Patient has been afebrile. Continue with Zosyn 12/30, Mucinex and albuterol. Nebulized hypertonic saline and guaifenesin f/u 12/30 sputum Cx --> Prelim GNB ID consulted, awaiting recommendation Pulmonology evaluated: appreciate recs, Ig levels and aspergillus/mycoplasma/legionella sent. Bronchoscopy 01/01 01/01 Bronchoscopy w/ BAL, f/u BAL studies Resume diet, resume lovenox, DC IVF #. CLL with elevated WBC and anemia: -hgb and wbc near baseline -continue with Iron supplement -f/u Dr Pierre, plan to start on Rx after LULI is taken care of per pt. #. Asthma with possible COPD: Never a smoker per pt will continue home inhaler regimen #. Constipation: -c/w Colace BID Diet: Heart healthy DVT PPx:Lovenox. Code Status:FULL CODE Emergency Contact: [phone] Disposition: Pending ID eval, to be determined. Text document was generated using voice recognition software. It may contain grammatical or spelling errors. Kindly contact undersigned for clarification of any documentation item in question. Admission and Anticipated Discharge Date Admission Date: December 30, 2021 Subjective Patient seen and examined at bedside as a follow-up of recurrent multilobar pneumonia with abnormal CT chest, history of TB, history of CLL . Patient lying in bed, on room air, NAD, no new acute events overnight. Patient reports decreasing frequency of cough but still w/ paroxysms of cough and produces yellow mucus. Patient denies any chest pain/belly pain/acute changes in bowel or bladder habit or other review of symptoms. Physical Exam Physical Exam: GENERAL: Alert and oriented x3. NAD, on RA. HEENT: No pallor, no icterus. Pupils equal, round and reactive to light. Oral mucosa moist. NECK: No JVD, no neck masses. HEART: S1 and S2 heard. Regular rate and rhythm. No murmur, no gallop. RESPIRATORY SYSTEM: Normal AP diameter. No accessory muscle use. no wheezing, b/l crackles improving. No cough noted at bedside conversation. ABDOMEN: Soft, bowel sounds present, nontender, no distention. CENTRAL NERVOUS SYSTEM: No facial droop. Speech is clear. Obeys simple commands. Moves extremities. EXTREMITIES: No edema, no erythema seen. Results & Data Results & Data ([facility]) Vital Signs (Past 12 Hours) Vital Signs Temp Pulse Pulse Resp BP BP Pulse Ox 01/01/22 15:21 81 18 94 01/01/22 15:16 36.6 C 62 18 128/68 94 01/01/22 12:01 74 18 156/71 H 94 01/01/22 11:42 36.6 C 78 20 140/69 92 01/01/22 11:27 36.7 C 83 20 178/72 H 96 01/01/22 11:26 78 18 166/93 H 93 01/01/22 11:21 78 18 158/62 H 94 01/01/22 11:20 78 18 157/80 H 94 01/01/22 11:15 76 18 156/65 H 93 01/01/22 11:10 77 18 172/83 H 97 01/01/22 11:05 73 18 165/82 H 97 01/01/22 07:27 78 18 94 01/01/22 07:14 36.8 C 64 18 149/70 H 92 (1) Anemia Anemia type: unspecified type Qualified Code(s): D64.9 - Anemia, unspecified (2) Dyspnea Dyspnea type: shortness of breath Qualified Code(s): R06.02 - Shortness of breath
[2022-01-01] MEDS: ENOXAPARIN INJ 40 MG/0.4 ML SYR SQ SCH ×2 (21:49→21:57)
[2022-01-01] MEDS: FLUTICASONE PROPIONATE NA SPR 16 GM BTL SCH (21:49)
[2022-01-02] MEDS: PIPERACILLIN/TAZOBACTAM 3.375 GM in DEXTROSE 5% 100 ML IV SCH ×3 (02:53→18:00)
[2022-01-02] MEDS: guaiFENesin/DEXTROM SYRUP 200MG/20MG 10ML UDC PO SCH ×4 (02:54→20:30)
[2022-01-02] MEDS: ALBUT/IPRATROP 3MG/0.5MG NEB 3 ML VIAL NEB SCH ×4 (07:04→20:09)
[2022-01-02] MEDS: SODIUM CHLOR 7% 4 ML NEB NEB SCH ×2 (07:04→20:09)
[2022-01-02 07:15] LABS: BUN Creatinine Ratio 14.5 (10-20); Calcium 9.6 mg/dl (8.5-10.1); Creatinine Clr Calc Pharmacy 47.8 ml/min; Est GFR (African American) 69.8 ml/min; Est GFR (Non-African American) 60.2 ml/min; Potassium 4.2 mmol/L (3.5-5.1)
[2022-01-02 07:17] LABS: Hematocrit (blood only) 26.9 % (42-52); Mean Corpuscular Hemoglobin 33.3 pg (25-34); Mean Corpuscular Hgb Conc 33.5 g/dL (32-36); Mean Corpuscular Volume 99.6 fL (80-100); Mean Platelet Volume 10.4 fL (7.4-10.4); Platelet Count 233 K/uL (130-400); RDW Coefficient of Variation 16.3 % (11.5-14.5); RDW Standard Deviation 59.4 fL (36.4-46.3); White Blood Count 154.48 K/uL (4.8-10.8)
[2022-01-02] MEDS: ADVANCED PROBIOTIC 1250 MG CAPSULE PO SCH (08:26)
[2022-01-02] MEDS: PANTOprazole 40 MG TAB PO SCH (08:26)
[2022-01-02] MEDS: ASCORBIC ACID 500 MG TAB PO SCH (08:26)
[2022-01-02] MEDS: ASPIRIN 81 MG ECTAB PO SCH (08:26)
[2022-01-02] MEDS: CEROVITE ADV FORMULA TAB PO SCH (08:26)
[2022-01-02] MEDS: FERROUS SULFATE 325 MG TAB PO SCH (08:26)
[2022-01-02] MEDS: ZINC SULFATE 220 MG CAPSULE PO SCH (08:26)
[2022-01-02] MEDS: FLUTICASONE/VILANTEROL 200/25MCG 14 PUFFS/INHALER INH SCH (08:26)
[2022-01-02] MEDS: DOCUSATE SODIUM 100 MG CAP PO SCH ×2 (08:29→20:30)
--- NOTE | 2022-01-02 09:11 | Pulmonology Progress Note ---
Date of Service January 02, 2022 Assessment & Plan (1) Multifocal pneumonia: (2) Fever: (3) Dyspnea: Dyspnea type: shortness of breath Qualified Code(s): R06.02 - Shortness of breath (4) CLL (chronic lymphocytic leukemia): (5) Asthma: Plan: Impression: 76-year-old male with history of CLL and hypogammaglobulinemia with recurrent pneumonia. He grew Achromobacter previously and sputum cultures from last month grew Mycobacterium intracellulare. He was admitted with respiratory symptoms and CT scan showed persistent abnormalities in the lung bases. He completed bronchoscopy with BAL 01/01/2022. Recommendations: 1. Recurrent pneumonia in immunocompromised patient. Patient is currently day #4 Zosyn. His white count is elevated due to CLL so is not a reliable indicator of response to therapy. ID consultation is pending. He is not demonstrated fevers. Unclear if this is related to the Achromobacter or potentially the nontuberculous mycobacterial infection. NTM infections especially in patients with immunodeficiency can be difficult to retreat and typically require 12-18 months of antibiotics. Regiment would consist of macrolide with rifampin and ethambutol. Await ID recommendations. Continue Zosyn for now. Would avoid macrolide therapy given his NTM history. ID reportedly had requested sensitivities however our institution does not routinely perform sensitivities on nontuberculous mycobacteria so there will be no sensitivities reported from the November culture. Will wait and see if the AFB stains on the BAL are positive however his prior sputum showed negative stains and only grew on culture which may take 4 to 6 weeks. 2. Asthma: Patient's not overtly bronchospastic now. No indication for steroids. Continue albuterol Atrovent 3. Hypoxemic respiratory failure: Continue supplemental oxygen titrated to keep saturations at or above 88%. Likely secondary to #1 4. Bronchiectasis: Unclear if related to #1. Continue hypertonic saline's and guaifenesin. Continue codeine-containing cough syrup as cough suppressant if needed. Can try Ultram if this is ineffectual. Disposition will ultimately be dictated by ID. Unclear if the patient will require long-term IV antibiotics and PICC line or not. Typically antibiotics or not initiated in the acute phase for nontuberculous mycobacterial infections however again would defer to ID. Please note the above document was generated using voice recognition software. It may contain grammatical, syntax or spelling errors.Any formal questions or concerns about the content, text or information contained within the body of this dictation should be directly addressed to the provider for clarification. Admission and Anticipated Discharge Date Admission Date: December 30, 2021 Subjective Patient seen and examined. He is not having any issues this morning but continues to have issues with intermittent cough. He is producing small amounts of clear to whitish phlegm. No hemoptysis. He tolerated bronchoscopy with BAL well yesterday. He is not had any chest pain or palpitations. He is anxious to know his discharge plan. He received home antibiotics in the form of Zosyn previously but is unclear if this offered him any clinical benefit. He is not had any significant wheezing or chest tightness. Review of Systems Review of Systems: All systems reviewed & are unremarkable except as noted in Subjective Physical Exam Constitutional: WD/WN, vitals as above ENMT: Mallampati Class: II Neck: trachea midline, no thyromegaly Respiratory: normal respiratory effort, lungs clear to auscultation Cardiovascular: RRR, no murmur, no edema Gastrointestinal (Abdomen): normal bowel sounds, soft, nontender, no hepatosplenomegaly Musculoskeletal: Extremities: extremities normal to inspection Skin: no rashes, warm and dry Lymphatic: no cervical lymphadenopathy Results & Data Results & Data ([facility]) Vital Signs (Past 12 Hours) Vital Signs Temp Pulse Resp BP Pulse Ox 01/02/22 07:34 37 C 66 16 129/66 92 01/02/22 07:04 88 20 91 01/01/22 23:20 36.9 C 62 18 114/53 L 93 01/01/22 21:44 95 Laboratory Results 01/02/22 06:32 01/02/22 06:32 Bronchoscopy BAL: Differential 13% neutrophils, 30% lymphocytes, 57% monocyte/macrophage Cultures pending, Gram stain showed rare GPC's with rare polys, fungal smears negative, AFB smears pending Cytology pending PG Care Time/CCT Total # of Minutes Spent Total Time Spent with Patient: Total time spent is greater than 50% in coordination of care (as documented) at patient's floor/unit and/or counseling patient: Coding Level of Care Code 65871 Subseq Hosp Care Lvl 2 Diagnoses Multifocal pneumonia J18.9 Fever R50.9 Dyspnea R06.02 Dyspnea type: shortness of breath CLL (chronic lymphocytic leukemia) C91.10 Asthma J45.909
--- NOTE | 2022-01-02 13:57 | Hospitalist Progress Note ---
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 Pt reports having worsening respiratory symtomps 1-3 weeks after iv zosyn was completed from last admission. He is being managed for the following: #. Worsening Cough with SOB #. Recurrent multi lobar pneumonia #. LULI Patient presented with cough with red-brown to yellow sputum. Admitting CT chest reviewed. Patient does have elevated WBC due to CLL. Admitting Covid test negative. Recent 11/16 sputum Cx grew LULI, reached out to microbiology lab, they sent it for sensitivity on 12/29 Patient has been afebrile. Continue with Zosyn 12/30, Mucinex and albuterol. Nebulized hypertonic saline and guaifenesin f/u 12/30 sputum Cx --> Prelim GNB ID evaluated 01/02: await 12/30 Sputum C/S for further ATB recs, hold Rx of LULI/MAC for 1-2 weeks, Pt will need ID f/u. Pulmonology evaluated: appreciate recs, Ig levels and aspergillus/mycoplasma/legionella sent. Bronchoscopy 01/01 01/01 Bronchoscopy w/ BAL, f/u BAL studies #. CLL with elevated WBC and anemia: -hgb and wbc near baseline -continue with Iron supplement -f/u Dr Pierre, plan to start on Rx after LULI is taken care of per pt. #. Asthma with possible COPD: Never a smoker per pt will continue home inhaler regimen #. Constipation: -c/w Colace BID Diet: Heart healthy DVT PPx:Lovenox. Code Status:FULL CODE Emergency Contact: [phone] Disposition: Pending sputum C/S, antibiotic selection/duration and need for iv access to be determined based on that/further discussion w/ ID. Text document was generated using voice recognition software. It may contain grammatical or spelling errors. Kindly contact undersigned for clarification of any documentation item in question. Admission and Anticipated Discharge Date Admission Date: December 30, 2021 Subjective Patient seen and examined at bedside as a follow-up of recurrent multilobar pneumonia with abnormal CT chest, history of TB, history of CLL . Patient sitting up in bed, on room air, NAD, no new acute events overnight. Patient reports decreasing frequency of cough but still w/ paroxysms of cough and produces clear mucus - noted at bedside exam. Patient denies any chest pain/belly pain/acute changes in bowel or bladder habit or other review of symptoms. Physical Exam Physical Exam: GENERAL: Alert and oriented x3. NAD, on RA. HEENT: No pallor, no icterus. Pupils equal, round and reactive to light. Oral mucosa moist. NECK: No JVD, no neck masses. HEART: S1 and S2 heard. Regular rate and rhythm. No murmur, no gallop. RESPIRATORY SYSTEM: Normal AP diameter. No accessory muscle use. no wheezing, RLL crackles noted improving. Paroxysm of cough with clear sputum noted at bedside conversation. ABDOMEN: Soft, bowel sounds present, nontender, no distention. CENTRAL NERVOUS SYSTEM: No facial droop. Speech is clear. Obeys simple commands. Moves extremities. EXTREMITIES: No edema, no erythema seen. Results & Data Results & Data ([facility]) Vital Signs (Past 12 Hours) Vital Signs Temp Pulse Resp BP Pulse Ox 01/02/22 07:34 37 C 66 16 129/66 92 01/02/22 07:04 88 20 91 (1) Anemia Anemia type: unspecified type Qualified Code(s): D64.9 - Anemia, unspecified (2) Dyspnea Dyspnea type: shortness of breath Qualified Code(s): R06.02 - Shortness of breath
[2022-01-02] MEDS: FLUTICASONE PROPIONATE NA SPR 16 GM BTL SCH (20:30)
[2022-01-02] MEDS: ENOXAPARIN INJ 40 MG/0.4 ML SYR SQ SCH (20:32)
[2022-01-02] MEDS: HYDROcodone/HOMATROPINE SYRUP 5MG/1.5MG 5ML UDP PO PRN (22:11)
[2022-01-03] MEDS: PIPERACILLIN/TAZOBACTAM 3.375 GM in DEXTROSE 5% 100 ML IV SCH ×3 (02:14→18:06)
[2022-01-03] MEDS: guaiFENesin/DEXTROM SYRUP 200MG/20MG 10ML UDC PO SCH ×2 (02:14→08:13)
[2022-01-03 06:56] LABS: Hematocrit (blood only) 27.1 % (42-52); Hemoglobin 9.1 g/dL (14.0-18.0); Mean Corpuscular Hemoglobin 33.2 pg (25-34); Mean Corpuscular Hgb Conc 33.6 g/dL (32-36); Mean Corpuscular Volume 98.9 fL (80-100); Mean Platelet Volume 10.6 fL (7.4-10.4); Platelet Count 253 K/uL (130-400); RDW Coefficient of Variation 16.3 % (11.5-14.5); RDW Standard Deviation 58.6 fL (36.4-46.3); Red Blood Count 2.74 M/uL (4.7-6.1); White Blood Count 172.82 K/uL (4.8-10.8)
[2022-01-03] MEDS: SODIUM CHLOR 7% 4 ML NEB NEB SCH ×2 (07:03→19:17)
[2022-01-03] MEDS: ALBUT/IPRATROP 3MG/0.5MG NEB 3 ML VIAL NEB SCH ×4 (07:03→19:17)
[2022-01-03 07:27] LABS: BUN Creatinine Ratio 18.5 (10-20); Calcium 9.6 mg/dl (8.5-10.1); Creatinine Clr Calc Pharmacy 45.1 ml/min; Est GFR (Non-African American) 56.1 ml/min; Magnesium 2.1 mg/dl (1.7-2.4); Phosphorus 3.4 mg/dl (2.5-4.9); Potassium 5.2 mmol/L (3.5-5.1)
[2022-01-03] MEDS: ADVANCED PROBIOTIC 1250 MG CAPSULE PO SCH (08:12)
[2022-01-03] MEDS: PANTOprazole 40 MG TAB PO SCH (08:13)
[2022-01-03] MEDS: ASCORBIC ACID 500 MG TAB PO SCH (08:13)
[2022-01-03] MEDS: ASPIRIN 81 MG ECTAB PO SCH (08:13)
[2022-01-03] MEDS: FLUTICASONE/VILANTEROL 200/25MCG 14 PUFFS/INHALER INH SCH (08:13)
[2022-01-03] MEDS: ZINC SULFATE 220 MG CAPSULE PO SCH (08:13)
[2022-01-03] MEDS: FERROUS SULFATE 325 MG TAB PO SCH (08:13)
[2022-01-03] MEDS: CEROVITE ADV FORMULA TAB PO SCH (08:13)
[2022-01-03] MEDS: DOCUSATE SODIUM 100 MG CAP PO SCH ×2 (08:13→20:39)
--- NOTE | 2022-01-03 11:49 | Pulmonology Progress Note ---
Date of Service January 03, 2022 Assessment & Plan (1) Multifocal pneumonia: (2) Fever: (3) Dyspnea: Dyspnea type: shortness of breath Qualified Code(s): R06.02 - Shortness of breath (4) CLL (chronic lymphocytic leukemia): (5) Asthma: Plan: Impression: 76-year-old male with history of CLL and hypogammaglobulinemia with recurrent pneumonia. He grew Achromobacter previously and sputum cultures from last month grew Mycobacterium intracellulare. He was admitted with respiratory symptoms and CT scan showed persistent abnormalities in the lung bases. He completed bronchoscopy with BAL 01/01/2022. Cultures have shown no growth to date and Gram stain showed no AFB or gram-negative organisms. Recommendations: 1. Recurrent pneumonia in immunocompromised patient. Patient is currently day #5 Zosyn. His white count is elevated due to CLL so is not a reliable indicator of response to therapy. From my standpoint, I would recommend discontinuation of antimicrobial therapy and following cultures. Will defer long-term decision to infectious disease as they are following him as well. He should follow-up with Dr. Martins in the outpatient setting as the AFB cultures may take several weeks to grow. 2. Asthma: Patient's not overtly bronchospastic now. No indication for steroids. Continue albuterol Atrovent 3. Hypoxemic respiratory failure: Continue supplemental oxygen titrated to keep saturations at or above 88%. Likely secondary to #1 4. Bronchiectasis: Unclear if related to #1. Continue hypertonic saline's and guaifenesin. 5. Cough: This appears to be the most problematic symptom for the patient. He has not responded to the hydrocodone which she took last night although he is not coughing at all during my visit today. Would recommend continue codeine cough syrup. If this remains problematic, consideration for outpatient Neurontin and/or Ultram might be appropriate. At this point time I do not see a clear indication to keep the patient in the hospital. He can await results of his outpatient cultures at home. He is not toxic or in any respiratory distress. Again I would favor discontinuation antimicrobial therapy but this can be coordinated with ID. Pulmonary will sign off at this point time. He can follow-up in the outpatient setting with Dr. Martins. Feel free to contact us with questions. Admission and Anticipated Discharge Date Admission Date: December 30, 2021 Subjective Patient seen and examined. EMR reviewed. The patient is up sitting at bedside reading his Bible. He is off oxygen. He states the cough is no better. He is dressed in street close and appears in no distress. He denies fevers chills or night sweats. No other constitutional symptoms. Review of Systems Review of Systems: All systems reviewed & are unremarkable except as noted in Subjective Physical Exam Constitutional: WD/WN, vitals as above ENMT: Mallampati Class: II Neck: trachea midline, no thyromegaly Respiratory: normal respiratory effort, lungs clear to auscultation Cardiovascular: RRR, no murmur, no edema Gastrointestinal (Abdomen): normal bowel sounds, soft, nontender, no hepatos plenomegaly Musculoskeletal: Extremities: extremities normal to inspection Skin: no rashes, warm and dry Lymphatic: no cervical lymphadenopathy Results & Data Results & Data ([facility]) Vital Signs (Past 12 Hours) Vital Signs Temp Pulse Pulse Resp BP Pulse Ox 01/03/22 11:01 63 22 01/03/22 07:32 36.6 C 71 16 138/66 91 01/03/22 07:04 64 16 94 Laboratory Results 01/03/22 06:24 01/03/22 06:24 Bronchoscopy BAL differential: 13% neutrophils, 30% lymphocytes, 0% eosinophils, 57% monocytes AFB stain negative, cultures pending Gram stain negative, cultures pending Fungal stain negative, cultures pending Diagnostic Findings No new imaging PG Care Time/CCT Total # of Minutes Spent Total Time Spent with Patient: Total time spent is greater than 50% in coordination of care (as documented) at patient's floor/unit and/or counseling patient: Coding Level of Care Code 53893 Subseq Hosp Care Lvl 2 Diagnoses Multifocal pneumonia J18.9 Fever R50.9 Dyspnea R06.02 Dyspnea type: shortness of breath CLL (chronic lymphocytic leukemia) C91.10 Asthma J45.909
--- NOTE | 2022-01-03 14:27 | Hospitalist Progress Note ---
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 Pt reports having worsening respiratory symptoms for 1-3 weeks after iv zosyn was completed from last admission. He is being managed for the following: #. Recurrent multilobar pneumonia with worsening cough and shortness of breath #. Recent LULI - Patient presented with cough with red-brown to yellow sputum. - CT chest 12/30 shows RLL pneumonia, bronchiectasis and mucus plugging left upper lobe, marked adenopathy as well as interval development of marked splenomegaly - Sputum clx 12/30 with GNB and sent out for further identification - Seen by pulm- s/p bronchoscopy on 01/01, BAL clx negative, pathology with no fungus or mycobacterium TB or tumor- pulm recommendations noted - Currently on zosyn pending final sputum clx result 12/30 showing GNB - Seen by ID 01/02- await 12/30 Sputum C/S for further ATB recs, hold Rx of LULI/MAC for 1-2 weeks, Pt will need ID f/u. - For now will continue antibiotics and treat symptomatically for cough and expectoration- chest physiotherapy, flutter valve, nebs including saline nebs, mucinex etc - Recent 11/16 sputum Cx grew LULI, reached out to microbiology lab, they sent it for sensitivity on 12/29 #. CLL with leucocytosis, anemia, splenomegaly and adenopathy -follows with Dr Pierre, plan to start on Rx after LULI is taken care of per pt. #. Asthma with possible COPD: never a smoker, on inhalers/nebs #. Constipation: c/w Colace BID DVT PPx:Lovenox. Disposition: Pending final sputum cultures and symptomatic improvement Admission and Anticipated Discharge Date Admission Date: December 30, 2021 Subjective Seen and examined at bedside. States his biggest issue is the cough with difficulty expectoration and it has not improved at all. He did have a bout of severe cough during my encounter. Denies any fever, chills, chest pain, nausea, vomiting. Asking when the culture results would be back and when he would be discharged. Physical Exam Physical Exam: General: Lying in bed, not in acute distress, on room air, intermittent bouts of coughing HEENT: EOMI, UNIQUE, MMM Chest: Fair breath sounds bilaterally, no wheezes or crackles, somewhat coarse at right upper lung CVS: Regular rate and rhythm, normal heart sounds, no murmur Abdomen: Soft, non tender, not distended, normal bowel sounds Neuro: Awake, alert, oriented, conversing well, non focal Extremities: No cyanosis, clubbing or edema Results & Data Results & Data ([facility]) Vital Signs (Past 12 Hours) Vital Signs Temp Pulse Pulse Resp BP Pulse Ox 01/03/22 11:01 63 22 01/03/22 07:32 36.6 C 71 16 138/66 91 01/03/22 07:04 64 16 94 Laboratory Results Short CBC 01/03/22 Range/Units 06:24 WBC 172.82 H* D (4.8-10.8) K/uL Hgb 9.1 L (14.0-18.0) g/dL Hct 27.1 L (42-52) % Plt Count 253 (130-400) K/uL BMP 01/03/22 06:24 Sodium 140 Potassium 5.2 H D Chloride 109 H Carbon Dioxide 26 BUN 23 Creatinine 1.24 Glucose 89 Calcium 9.6 Medications Administered Current Inpatient Medications Acetaminophen (Acetaminophen 325 Mg Tab) 650 mg PO Q4H PRN PRN Reason: fever or pain Stop: 01/29/22 20:02 Albuterol (Albut/Ipratrop 3mg/0.5mg Neb 3 Ml Vial) 3 ml NEB QIDR [facility]; Protocol Stop: 01/30/22 10:59 Last Admin: 01/03/22 10:59 Dose: 3 ml Documented by: Ascorbic Acid (Ascorbic Acid 500 Mg Tab) [facility] [place] Stop: 01/30/22 08:59 Last Admin: 01/03/22 08:13 Dose: 500 mg Documented by: Aspirin (Aspirin 81 Mg Ectab) 81 mg PO QAM [facility] Stop: 01/30/22 08:59 Last Admin: 01/03/22 08:13 Dose: 81 mg Documented by: Budesonide (Budesonide 0.5 Mg/2 Ml Vial (Pulmicort)) 0.5 mg NEB BIDR [facility] Stop: 02/02/22 18:59 Docusate Sodium (Docusate Sodium 100 Mg Cap) 100 mg PO BID [facility] Stop: 01/29/22 20:59 Last Admin: 01/03/22 08:13 Dose: 100 mg Documented by: Enoxaparin Sodium (Enoxaparin Inj 40 Mg/0.4 Ml Syr) 40 mg SQ Q24H [facility] Stop: 01/29/22 20:59 Last Admin: 01/02/22 20:32 Dose: Not Given Documented by: Ferrous Sulfate (Ferrous Sulfate 325 Mg Tab) 325 [facility] [place] Stop: 01/30/22 08:59 Last Admin: 01/03/22 08:13 Dose: 325 mg Documented by: Fluticasone Propionate (Fluticasone Propionate Na Spr 16 Gm Btl) [address] [facility]; Protocol Stop: 01/29/22 20:59 Last Admin: 01/02/22 20:30 Dose: 2 sprays Documented by: Fluticasone/Vilanterol (Fluticasone/Vilanterol 200/25mcg 14 Puffs/Inhaler) 1 puffs INH [facility] [place] Stop: 01/30/22 08:59 Last Admin: 01/03/22 08:13 Dose: 1 puffs Documented by: Formoterol Fumarate (Formoterol 20 Mcg/2 Ml Vial) 20 mcg NEB BIDR [facility] Stop: 02/02/22 18:59 Guaifenesin (Guaifenesin 600 Mg Tabcr) 1,200 mg PO Q12 [facility] Stop: 02/02/22 20:59 Hydrocodone Bit/Homatropine Methylb (Hydrocodone/Homatropine Syrup 5mg/1.5mg 5ml Udp) 5 ml PO Q4H PRN PRN Reason: Cough Stop: 01/15/22 11:49 Last Admin: 01/02/22 22:11 Dose: 5 ml Documented by: Piperacillin Sod/Tazobactam (Sod 3.375 gm/ Dextrose) 115 mls @ 28.75 mls/hr IV Q8H [facility]; Protocol Stop: 01/07/22 01:59 Last Admin: 01/03/22 10:38 Dose: 28.8 mls/hr Documented by: Lactobacillus Acidophilus (Advanced Probiotic 1250 Mg Capsule) 2 cap [facility] Stop: 01/30/22 08:59 Last Admin: 01/03/22 08:12 Dose: 2 cap Documented by: Miscellaneous Information (Piperacill/Tazobac Consult Active) 1 ea N/A UD PRN PRN Reason: Consult Stop: 01/29/22 20:42 Multivitamins/Minerals (Cerovite Adv Formula Tab) 1 tab PO [facility] Stop: 01/30/22 08:59 Last Admin: 01/03/22 08:13 Dose: 1 tab Documented by: Pantoprazole Sodium (Pantoprazole 40 Mg Tab) 40 mg PO [facility] Stop: 01/30/22 08:59 Last Admin: 01/03/22 08:13 Dose: 40 mg Documented by: Sodium Chloride (Sodium Chlor 7% 4 Ml Neb) 4 ml NEB BIDR [facility] Stop: 01/30/22 18:59 Last Admin: 01/03/22 07:03 Dose: Not Given Documented by: Zinc Sulfate (Zinc Sulfate 220 Mg Capsule) 220 mg PO [facility] Stop: 01/30/22 08:59 Last Admin: 01/03/22 08:13 Dose: 220 mg Documented by: (1) Anemia Anemia type: unspecified type Qualified Code(s): D64.9 - Anemia, unspecified (2) Dyspnea Dyspnea type: shortness of breath Qualified Code(s): R06.02 - Shortness of breath
[2022-01-03] MEDS: FORMOTEROL 20 MCG/2 ML VIAL NEB SCH (19:16)
[2022-01-03] MEDS: BUDESONIDE 0.5 MG/2 ML VIAL (PULMICORT) NEB SCH (19:17)
[2022-01-03] MEDS: ENOXAPARIN INJ 40 MG/0.4 ML SYR SQ SCH (20:38)
[2022-01-03] MEDS: FLUTICASONE PROPIONATE NA SPR 16 GM BTL SCH (20:38)
[2022-01-03] MEDS: guaiFENesin 600 MG TABCR PO SCH (20:39)
[2022-01-03] MEDS: POLYETHYLENE (MIRALAX) 17 GM PACK PO PRN (21:55)
[2022-01-04] MEDS: PIPERACILLIN/TAZOBACTAM 3.375 GM in DEXTROSE 5% 100 ML IV SCH ×3 (01:45→17:02)
[2022-01-04 07:14] LABS: Hematocrit (blood only) 28.8 % (42-52); Hemoglobin 9.6 g/dL (14.0-18.0); Mean Corpuscular Hemoglobin 33.1 pg (25-34); Mean Corpuscular Hgb Conc 33.3 g/dL (32-36); Mean Corpuscular Volume 99.3 fL (80-100); Mean Platelet Volume 10.7 fL (7.4-10.4); Platelet Count 287 K/uL (130-400); RDW Coefficient of Variation 16.4 % (11.5-14.5); RDW Standard Deviation 58.4 fL (36.4-46.3); White Blood Count 180.51 K/uL (4.8-10.8)
[2022-01-04] MEDS: BUDESONIDE 0.5 MG/2 ML VIAL (PULMICORT) NEB SCH ×2 (07:25→19:28)
[2022-01-04] MEDS: ALBUT/IPRATROP 3MG/0.5MG NEB 3 ML VIAL NEB SCH ×4 (07:25→19:27)
[2022-01-04] MEDS: FORMOTEROL 20 MCG/2 ML VIAL NEB SCH ×2 (07:26→19:28)
[2022-01-04 07:36] LABS: BUN Creatinine Ratio 19.1 (10-20); Calcium 9.9 mg/dl (8.5-10.1); Creatinine Clr Calc Pharmacy 42.7 ml/min; Est GFR (African American) 60.9 ml/min; Est GFR (Non-African American) 52.5 ml/min; Magnesium 2.2 mg/dl (1.7-2.4); Phosphorus 3.3 mg/dl (2.5-4.9); Potassium 4.3 mmol/L (3.5-5.1); Uric Acid 3.9 mg/dl (2.6-7.2)
[2022-01-04] MEDS: HYDROcodone/HOMATROPINE SYRUP 5MG/1.5MG 5ML UDP PO PRN ×2 (07:57→13:13)
[2022-01-04] MEDS: POLYETHYLENE (MIRALAX) 17 GM PACK PO PRN (07:57)
[2022-01-04] MEDS: PANTOprazole 40 MG TAB PO SCH (07:58)
[2022-01-04] MEDS: ASPIRIN 81 MG ECTAB PO SCH (07:58)
[2022-01-04] MEDS: DOCUSATE SODIUM 100 MG CAP PO SCH ×2 (07:58→20:31)
[2022-01-04] MEDS: ASCORBIC ACID 500 MG TAB PO SCH (07:59)
[2022-01-04] MEDS: ADVANCED PROBIOTIC 1250 MG CAPSULE PO SCH (07:59)
[2022-01-04] MEDS: SODIUM CHLOR 7% 4 ML NEB NEB SCH ×2 (07:59→19:32)
[2022-01-04] MEDS: CEROVITE ADV FORMULA TAB PO SCH (07:59)
[2022-01-04] MEDS: FERROUS SULFATE 325 MG TAB PO SCH (07:59)
[2022-01-04] MEDS: ZINC SULFATE 220 MG CAPSULE PO SCH (07:59)
[2022-01-04] MEDS: guaiFENesin 600 MG TABCR PO SCH ×2 (08:00→20:30)
--- NOTE | 2022-01-04 11:50 | Hospitalist Progress Note ---
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 Pt reports having worsening respiratory symptoms for 1-3 weeks after iv zosyn was completed from last admission. He is being managed for the following: #. Recurrent multilobar pneumonia with worsening cough and shortness of breath #. Recent LULI - Patient presented with cough with red-brown to yellow sputum. - CT chest 12/30 shows RLL pneumonia, bronchiectasis and mucus plugging left upper lobe, marked adenopathy as well as interval development of marked splenomegaly - Sputum clx 12/30 with GNB and sent out for further identification - Seen by pulm- s/p bronchoscopy on 01/01, BAL clx negative, pathology with no fungus or mycobacterium TB or tumor- pulm recommendations noted - Currently on zosyn pending final sputum clx result 12/30 showing GNB- called [facility] today, states reincubated yesterday due to slow growth and recommended calling back tomorrow - Seen by ID 01/02- await 12/30 Sputum C/S for further ATB recs, hold Rx of LULI/MAC for 1-2 weeks, Pt will need ID f/u. - For now will continue antibiotics and treat symptomatically for cough and expectoration- chest physiotherapy, flutter valve, nebs including saline nebs, mucinex etc - Recent 11/16 sputum Cx grew LULI, reached out to microbiology lab, they sent it for sensitivity on 12/29 #. CLL with leucocytosis, anemia, splenomegaly and adenopathy -follows with Dr Pierre, plan to start on Rx after LULI is taken care of per patient. #. Asthma with possible COPD: never a smoker, on inhalers/nebs #. Constipation: continue Colace BID DVT prophylaxis:Lovenox. Disposition: Pending final sputum cultures and symptomatic improvement Admission and Anticipated Discharge Date Admission Date: December 30, 2021 Subjective Seen and examined at bedside. Still with cough, expectoration and pain with coughing, only minimally improved. Making very slow progress in that regard. Doing well with spirometry and flutter valve. Discussed about my conversation with microbiology lab regarding the sputum culture. No new issues. No fever, chills, nausea, vomiting. Physical Exam Physical Exam: General: Sitting in bed, not in acute distress, on room air HEENT: EOMI, UNIQUE, MMM Chest: Fair breath sounds bilaterally, no wheezes or crackles CVS: Regular rate and rhythm, normal heart sounds, no murmur Abdomen: Soft, non tender, not distended, normal bowel sounds Neuro: Awake, alert, oriented, conversing well, non focal Extremities: No cyanosis, clubbing or edema Results & Data Results & Data ([facility]) Vital Signs (Past 12 Hours) Vital Signs Temp Pulse Resp BP Pulse Ox 01/04/22 10:57 67 16 96 01/04/22 07:54 36.7 C 67 16 126/66 95 01/04/22 07:26 60 98 Laboratory Results Short CBC 01/04/22 Range/Units 06:27 WBC 180.51 H* (4.8-10.8) K/uL Hgb 9.6 L (14.0-18.0) g/dL Hct 28.8 L (42-52) % Plt Count 287 (130-400) K/uL [facility] 01/04/22 06:27 Sodium 140 Potassium 4.3 Chloride 107 Carbon Dioxide 25 BUN 25 H Creatinine 1.31 Glucose 90 Calcium 9.9 Medications Administered Current Inpatient Medications Acetaminophen (Acetaminophen 325 Mg Tab) 650 mg PO Q4H PRN PRN Reason: fever or pain Stop: 01/29/22 20:02 Albuterol (Albut/Ipratrop 3mg/0.5mg Neb 3 Ml Vial) 3 ml NEB [facility]IDR [facility]; Protocol Stop: 01/30/22 10:59 Last Admin: 01/04/22 10:53 Dose: 3 ml Documented by: Ascorbic Acid (Ascorbic Acid 500 Mg Tab) 500 mg PO [facility] Stop: 01/30/22 08:59 Last Admin: 01/04/22 07:59 Dose: 500 mg Documented by: Aspirin (Aspirin 81 Mg Ectab) 81 mg PO QAM [facility] Stop: 01/30/22 08:59 Last Admin: 01/04/22 07:58 Dose: 81 mg Documented by: Budesonide (Budesonide 0.5 Mg/2 Ml Vial (Pulmicort)) 0.5 mg NEB BIDR [facility] Stop: 02/02/22 18:59 Last Admin: 01/04/22 07:25 Dose: 0.5 mg Documented by: Docusate Sodium (Docusate Sodium 100 Mg Cap) 100 mg PO BID [facility] Stop: 01/29/22 20:59 Last Admin: 01/04/22 07:58 Dose: 100 mg Documented by: Enoxaparin Sodium (Enoxaparin Inj 40 Mg/0.4 Ml Syr) 40 mg SQ Q24H [facility] Stop: 01/29/22 20:59 Last Admin: 01/03/22 20:38 Dose: Not Given Documented by: Ferrous Sulfate (Ferrous Sulfate 325 Mg Tab) 325 mg PO QAM [facility] Stop: 01/30/22 08:59 Last Admin: 01/04/22 07:59 Dose: 325 mg Documented by: Fluticasone Propionate (Fluticasone Propionate Na Spr 16 Gm Btl) 2 sprays NA [facility]; Protocol Stop: 01/29/22 20:59 Last Admin: 01/03/22 20:38 Dose: 2 sprays Documented by: Fluticasone/Vilanterol (Fluticasone/Vilanterol 200/25mcg 14 Puffs/Inhaler) 1 puffs [facility] Stop: 01/30/22 08:59 Last Admin: 01/03/22 08:13 Dose: 1 puffs Documented by: Formoterol Fumarate (Formoterol 20 Mcg/2 Ml Vial) 20 mcg [facility]B [facility] Stop: 02/02/22 18:59 Last Admin: 01/04/22 07:26 Dose: Not Given Documented by: Guaifenesin (Guaifenesin 600 Mg Tabcr) 1,200 mg PO Q12 [facility] Stop: 02/02/22 20:59 Last Admin: 01/04/22 08:00 Dose: 1,200 mg Documented by: Hydrocodone Bit/Homatropine Methylb (Hydrocodone/Homatropine Syrup 5mg/1.5mg 5ml Udp) 5 ml PO Q4H PRN PRN Reason: Cough Stop: 01/15/22 11:49 Last Admin: 01/04/22 07:57 Dose: 5 ml Documented by: Piperacillin Sod/Tazobactam (Sod 3.375 gm/ Dextrose) 115 mls @ 28.75 mls/hr IV Q8H [facility]; Protocol Stop: 01/07/22 01:59 Last Admin: 01/04/22 09:08 Dose: 28.8 mls/hr Documented by: Lactobacillus Acidophilus (Advanced Probiotic 1250 Mg Capsule) 2 cap PO [facility] Stop: 01/30/22 08:59 Last Admin: 01/04/22 07:59 Dose: 2 cap Documented by: Miscellaneous Information (Piperacill/Tazobac Consult Active) 1 ea N/A UD PRN PRN Reason: Consult Stop: 01/29/22 20:42 Multivitamins/Minerals (Cerovite Adv Formula Tab) 1 tab PO [facility] Stop: 01/30/22 08:59 Last Admin: 01/04/22 07:59 Dose: 1 tab Documented by: Pantoprazole Sodium (Pantoprazole 40 Mg Tab) 40 mg PO [facility] Stop: 01/30/22 08:59 Last Admin: 01/04/22 07:58 Dose: 40 mg Documented by: Polyethylene Glycol (Polyethylene (Miralax) 17 Gm Pack) 17 gm PO DAILY PRN PRN Reason: Constipation Stop: 02/02/22 20:58 Last Admin: 01/04/22 07:57 Dose: 17 gm Documented by: Sodium Chloride (Sodium Chlor 7% 4 Ml Neb) 4 ml NEB [facility]IDR [facility] Stop: 01/30/22 18:59 Last Admin: 01/04/22 07:59 Dose: 4 ml Documented by: Zinc Sulfate (Zinc Sulfate 220 Mg Capsule) 220 mg PO [facility] Stop: 01/30/22 08:59 Last Admin: 01/04/22 07:59 Dose: 220 mg Documented by: (1) Anemia Anemia type: unspecified type Qualified Code(s): D64.9 - Anemia, unspecified (2) Dyspnea Dyspnea type: shortness of breath Qualified Code(s): R06.02 - Shortness of breath
[2022-01-04] MEDS: FLUTICASONE PROPIONATE NA SPR 16 GM BTL SCH (20:32)
[2022-01-04] MEDS: ENOXAPARIN INJ 40 MG/0.4 ML SYR SQ SCH (20:32)
[2022-01-05] MEDS: PIPERACILLIN/TAZOBACTAM 3.375 GM in DEXTROSE 5% 100 ML IV SCH ×2 (02:07→09:03)
[2022-01-05] MEDS: FORMOTEROL 20 MCG/2 ML VIAL NEB SCH (07:26)
[2022-01-05] MEDS: BUDESONIDE 0.5 MG/2 ML VIAL (PULMICORT) NEB SCH (07:26)
[2022-01-05] MEDS: SODIUM CHLOR 7% 4 ML NEB NEB SCH (07:28)
[2022-01-05] MEDS: ALBUT/IPRATROP 3MG/0.5MG NEB 3 ML VIAL NEB SCH (07:29)
[2022-01-05] MEDS: HYDROcodone/HOMATROPINE SYRUP 5MG/1.5MG 5ML UDP PO PRN (08:01)
[2022-01-05] MEDS: guaiFENesin 600 MG TABCR PO SCH (09:10)
[2022-01-05] MEDS: CEROVITE ADV FORMULA TAB PO SCH (09:11)
[2022-01-05] MEDS: ZINC SULFATE 220 MG CAPSULE PO SCH (09:11)
[2022-01-05] MEDS: ASPIRIN 81 MG ECTAB PO SCH (09:11)
[2022-01-05] MEDS: ASCORBIC ACID 500 MG TAB PO SCH (09:11)
[2022-01-05] MEDS: PANTOprazole 40 MG TAB PO SCH (09:11)
[2022-01-05] MEDS: FERROUS SULFATE 325 MG TAB PO SCH (09:11)
[2022-01-05] MEDS: DOCUSATE SODIUM 100 MG CAP PO SCH (09:11)
[2022-01-05] MEDS: ADVANCED PROBIOTIC 1250 MG CAPSULE PO SCH (09:11)
[2022-01-05] MEDS ORDERED: levoFLOXacin 750 MG TAB PO ONE (10:00)
--- NOTE | 2022-01-05 14:15 | Discharge Summary ---
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 Denied any N/V or diarrhea. Denied any exposure to COVID or flu. Pt is also having chronic nasal congestion with worsening rhinorrhea. Recent sputum culture (11/16/21): No acid fast Bacilli. Prelim: Mycobacterium Intracellulare Per ER physician who spoke to Pulm (Dr. Martins): he recommended continuing zosyn, possible bronch and recommended ID consult Admission Exam Per Admitting Provider General:.NAD, well developed, well nourished, average body habitus HEENT:.Normocephalic and atraumatic, Normal Conjunctiva, EOMI, Sclera is non- icteric Lungs:.initially had expiratory wheezing which resolved with coughing. Fair air entry b/l, no crackles Heart:.Normal S1, S2, no murmur Abdominal:.ND, Soft, NT MSK:.No deformities of UE and LE, No leg edema Psych:.AAOx3, normal affect Principal Diagnosis Pneumonia due to pseudomonas in immunocompromised Discharge Exam General: Lying comfortably in bed, not in distress, on room air HEENT: EOMI, UNIQUE, MMM Chest: Clear breath sounds bilaterally, no wheezes or crackles CVS: Regular rate and rhythm, normal heart sounds, no murmur Abdomen: Soft, non tender, not distended, normal bowel sounds Neuro: Awake, alert, oriented, conversing well, non focal Extremities: No cyanosis, clubbing or edema Discharge Data Allergies Allergy/AdvReac Type Severity Reaction Status Date / Time rofecoxib Allergy Intermediate RASH,SWELLING, Verified 12/30/21 18:29 UNSTEADY GAIT/STUMBLING lamotrigine [From Lamictal] AdvReac Mild cannot Unverified 12/30/21 20:11 think straight, stumbling and falling. 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 Pt reports having worsening respiratory symptoms for 1-3 weeks after iv zosyn was completed from last admission. He is being managed for the following: #. Pneumonia due to pseudomonas in immunocompromised - Patient presented with cough with red-brown to yellow sputum. - CT chest 12/30 shows RLL pneumonia, bronchiectasis and mucus plugging left upper lobe, marked adenopathy as well as interval development of marked splenomegaly - Sputum clx 12/30 with pseudomonas sensitive to zosyn and FQs- On zosyn in house and being discharged on levaquin to complete antibiotic course for total of 14 days per ID recommendation (750 mg q48 hrs for his CrCl <50). I spoke to Dr Coleman from ID prior to discharge. - Seen by pulm- s/p bronchoscopy on 01/01, BAL clx negative, pathology with no fungus or mycobacterium TB or tumor- pulm recommendations noted # Recent LULI - Recent 11/16 sputum Cx grew LULI, reached out to microbiology lab, they sent it for sensitivity on 12/29. Per ID, follow up as OP in about 2 weeks to discuss treatment. Our nurse coordinator reached out to ID for OP appointment. #. CLL with leucocytosis, anemia, splenomegaly and adenopathy -follows with Dr Pierre, plan to start on Rx after LULI is taken care of per patient. #. Asthma with possible COPD: never a smoker, on inhalers/nebs Total Time Total Time Spent Total Time Spent (In Minutes): 35 Discharge Plan Discharge Items Patient Disposition: Home - Self-Care Reason For Visit: PNEUMONIA Discharge Diagnosis: Pneumonia due to pseudomonas Activity: Resume your previous activity Non-emergency contact: Primary Care Provider Call non-emergency contact if: you have any medication questions and you have a fever Follow-up/Referrals: Cordell Valle [Primary Care Provider] - 01/12/22 8:30 am (APPT WITH NOLAN HANSON PA-C) Carlos Pierre MD [Surgeon] - 01/11/22 8:45 am (Date & Time 01/11/2022 8:45 AM Provider Carlos Pierre MD Department [facility] ) Diet: Regular Addtl Attending Provider Instructions: Continue levaquin every other day starting 01/07 to complete the antibiotic course. Follow with the infectious disease doctor in 2 weeks to consider treatment of your mycobacterium treatment (susceptibilities still pending as send out lab) Follow with your oncologist for consideration of treatment of your CLL Continue the spirometry and flutter valve Follow with your family doctor Pending Studies at Discharge: Yes Studies:: LULI sensitivities from 11/16 (send out lab) Stand-Alone Forms: My [facility]UKA, Smoking Cessation Medications and DC Order Prescriptions: New levofloxacin 750 mg tablet 750 mg PO Q48H 8 Days Qty: 4 RF: 0 Continued omeprazole 20 mg Tablet,Delayed Release (Dr/Ec) 20 mg PO QAM Qty: 0 RF: 0 aspirin 81 mg tablet,delayed release (DR/EC) 81 mg PO QAM RF: 0 ferrous sulfate [Feosol] 325 mg (65 mg iron) tablet 325 mg PO QAM RF: 0 ascorbate calcium (vitamin C) 500 mg tablet 500 mg PO QAM RF: 0 (DME) Flutter Valve Device See Rx Instructions .MEDSUPPLY Qty: 1 RF: 0 mometasone 50 mcg/actuation spray,non-aerosol 2 spray INTRANASAL HS RF: 0 Mucinex 1,200 mg Tablet Extended Release 12hr 1,200 mg PO BID RF: 0 Breo Ellipta 200-25 mcg/dose blister with device 1 inh inhalation QAM RF: 0 Multiple Vitamin-Minerals Tablet 1 tab PO QAM RF: 0 Probiotic Acidophilus Biobeads 12.9 mg (2 billion cell) Tablet,Delayed Release (Dr/Ec) 1 tab PO QAM RF: 0 zinc 50 mg Tablet 50 mg PO QAM RF: 0 acetaminophen 325 mg Tablet 650 mg PO Q4H PRN (Reason: fever or pain) Qty: 100 RF: 0 docusate sodium [Colace] 100 mg capsule 100 mg PO BID Qty: 60 RF: 0 Discharge Orders: Discharge Order (Routine); Ordered 01/05/22 Ordered By: Harsh Pascual Admission Data Admit Date/Time: 12/30/21 19:06 Attending Provider: Harsh Pascual Admit Provider: Yenny Boone Primary Care Provider: Cordell Valle Other Providers: Carlos Pierre ; Faiza Godwin ; Yenny Boone ; Alireza Johnson ; Regla Barragan ; Cali Anthony I. ; Abdifatah Coleman II ; Zoë Abernathy ; Baldev Daugherty ; Ector Polo ; Max Martins Other Interventions: Discharge Summary Assessment (RN) Last Done: 01/05/22 09:18
[2022-01-06 21:32] LABS: Asperg Fumig Class 0; Asperg Fumig IgE <0.10 kU/L; Aspergillus Flavus Negative (Negative); Aspergillus Niger Negative (Negative); Immunoglobulin IgE <2 kU/L (<OR=114); Mycoplasma pneumoniae Ab, IgM 3 U/mL (<770); Rast Aspergillus fumigatus IgG 16.3 mcg/mL (<2.0)
[2022-01-11 12:56] LABS: Legionella Culture Source BAL RLL; Source BAL RLL
== END 2022-01-05 10:33 | disposition home or self-care (01) | DRG 177 ==
LOC: ED 16:03 → SUATTDRO 19:06 → 3E 19:06

== ENCOUNTER 2023-08-10 20:02 | Inpatient (IN) ==
--- NOTE | 2023-08-10 20:33 | Emergency Department Note ---
Impression & Plan Acute hypoxemic respiratory failure ED Provider Note NAME: KEM VERGARA AGE: 78 SEX: M : 1945 ARRIVES VIA: Walk-In INFORMANT: Patient, ED PROVIDER(S): Vel Pepper MD CHIEF COMPLAINT: Shortness of breath MEDICAL DECISION MAKING: Patient presented due to concern for shortness of breath known history of lung cancer and hypoxia at home. IV was established and blood work was obtained. Chest x-ray also obtained which may show increased in opacities which could be related to the patient's malignancy versus infectious process. Patient does have a white count of 11 with a hemoglobin of 10. Platelet count is unremarkable. Kidney function with prerenal azotemia. The patient was ordered IV fluids and a dose of Zosyn. Initial lactate not elevated with Pro- Aydin negative. Bio fire negative. Given the patient's reported hypoxia at home as well as borderline hypoxia here at 89% with his known history as well as increased shortness of breath I did speak with the on-call hospitalist service Dr. Nichols and the patient was admitted to the medicine service. Patient was placed on nasal cannula. Critical Care: I have personally spent 35 minutes of critical care time in direct management of this patient. This includes bedside care, interpretation of diagnostic studies, and testing, discussion with consultants, patient, and family members, and other require inpatient management activities. This 35 minutes is in excess of all separately billable procedures. Discussion w/ other healthcare providers: Dr. Nichols inpatient medicine Prior /Outside records reviewed: I reviewed a discharge summary from June 30, [address] Morales. Patient reportedly had been sent in by his oncologist for her symptoms low-grade temperature cough nausea and vomiting. Differential diagnosis: Reactive airway disease, pneumonia, pneumothorax, COPD, CHF, ACS, pulmonary embolism, musculoskeletal, GERD as well as other pathologies were considered. Diagnostics, as interpreted by me: ECG: Normal sinus rhythm, rate of 76, normal intervals, normal axis no ST elevations. Cardiac monitoring: An order was placed for continuous cardiac monitoring. The monitor shows a rate of 75 with sinus rhythm. Patient was placed on pulse oximetry Medical decision rules: Curb 65 score Imaging studies: I informally interpreted the patient's chest x-ray may show multifocal airspace opacities with formal report to follow. HPI: Patient presents due to concern for worsening shortness of breath and associated hypoxia. The patient does follow with Dr. Pierre and has a known history of lung cancer for which he does receive an infusion at [facility] every couple weeks and is still taking his chemotherapy by mouth. 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 Patient has had progressively worsening shortness of breath over the last several weeks worse in the last 2 to 3 days with scant productive cough. Patient states that typically he would be able to do something like 50 push-ups as well as 50 stairs without much problem but now just doing even a small amount of activity causes him to be short of breath. No lower extremity swelling or history of PE or DVT. The patient denies any chest pains. The patient does not report any fevers or chills. Patient has no prior history of smoking. Patient also reports that he does check his oxygen on a regular basis and was noted to be in the mid 80s and typically he runs and around 95 at all times. PAST MEDICAL HISTORY: See Below PAST SURGICAL HISTORY: See Below SOCIAL HISTORY: See Below HOME MEDICATIONS: See Below ALLERGIES: See Below VITALS: See Below PHYSICAL EXAMINATION: GENERAL: NAD, non-toxic. Wearing a mask. EYE EXAM: Normal conjunctiva. PERRL, no anisocoria and EOM's grossly intact w/o pain. OROPHARYNX: Moist mucus membranes, grossly normal dentition. NECK: Supple, no nuchal rigidity, no adenopathy, non-tender. No signs of meningismus. FROM of the neck with good chin to chest and neck extension. No stridor. LUNGS: Clear to auscultation. Normal chest wall mechanics. HEART: NSR, no MRG. ABDOMEN: Abdomen soft, non-tender, no masses, no rebound or guarding. BACK: No CVA TTP. SKIN: No rashes and no bruising. UPPER EXTREMITIES: Upper extremities are grossly normal. LOWER EXTREMITIES: Grossly normal, no edema. Negative Homans' sign bilaterally. NEURO EXAM: A&O x3, cranial nerves II-XII grossly intact, normal speech, moves all 4 extremities. Past Med/Surg History Medical History Epilepsy Tuberculosis Asthma BPH (benign prostatic hyperplasia) UTI (urinary tract infection) Surgical History History of tonsillectomy and adenoidectomy H/O vasectomy [place] teeth removed S/P TURP 2019 History of bronchoscopy Social History Smoking Status: Never smoker Second Hand Exposure: No; Do You Dip or Chew Tobacco: No; Hx Alcohol Use: No Hx Substance Use: No Preferred Language: Korean Communication Ability: Effective Radio Repairer Required: No Beliefs That Will Affect Care: Jain Current Living Situation: Spouse Other Information That Helps Us Care for You: No Feels Safe at Home: Yes Safety Concerns: Feels Safe At This Time Assistive Devices: Glasses Allergies Allergies Allergy/AdvReac Type Severity Reaction Status Date / Time rofecoxib Allergy Intermediate RASH,SWELLING, Verified 01/04/23 16:56 UNSTEADY GAIT/STUMBLING lamotrigine [From Lamictal] AdvReac Mild cannot Unverified 01/04/23 16:56 think straight, stumbling and falling. meperidine AdvReac Mild Vomiting Unverified 01/04/23 16:56 Home Meds Home Medications Medication Instructions Recorded Confirmed ferrous sulfate 325 mg (65 mg 325 mg PO QAM 07/11/21 08/10/23 iron) tablet (Feosol) acalabrutinib 100 mg capsule 400 mg PO Q12H 06/06/22 08/10/23 (Calquence) ethambutol 400 mg tablet 1,600 mg PO 3XWK 06/06/22 08/10/23 omega-3 fatty acids 1,000 mg 1,000 mg PO DAILY 06/06/22 08/10/23 capsule Vinegar Tea See Rx Instructions .Route .COMPLEX 01/04/23 08/10/23 azithromycin 500 mg tablet 500 mg PO .MWF 01/04/23 08/10/23 Privigen 40 g IV .EVERY 28 DAYS 06/27/23 08/10/23 coenzyme Q10 100 mg capsule (Co 100 mg PO DAILY 06/27/23 08/10/23 Q-10) diphenhydramine 25 1 tab PO HS PRN Sleep 06/27/23 08/10/23 mg-acetaminophen 500 mg tablet (Tylenol PM Extra Strength) fluticasone propionate 50 1 spray intranasal DAILY 06/27/23 08/10/23 mcg/actuation nasal spray,suspension (Allergy Relief (fluticasone)) guar gum 1 packet PO DAILY 06/27/23 08/10/23 multivitamin with minerals 1 tab PO DAILY 06/27/23 08/10/23 (Multiple Vitamin-Minerals tablet) rifampin 300 mg capsule 600 mg PO .MON,WED,FRI 06/27/23 08/10/23 zinc acetate 50 mg (zinc) capsule 50 mg PO QAM 06/27/23 08/10/23 Probiotic Acidophilus Biobeads 2 cap PO DAILY 08/10/23 08/10/23 Vitamin C 500 mg PO DAILY 08/10/23 08/10/23 fluticasone furoate 200 1 inh inhalation DAILY 08/10/23 08/10/23 mcg-vilanterol 25 mcg/dose inhalation powder (Breo Ellipta) guaifenesin 600 mg tablet, 600 mg PO Q12H 08/10/23 08/10/23 extended release 12 hr (Mucinex) levalbuterol HCl 1.25 mg/3 mL 1.25 mg inhalation Q4H 08/10/23 08/10/23 solution for nebulization Previous Rx's Medication Instructions Recorded Flutter Valve #1 ea 11/29/21 fluticasone furoate 200 1 inh inhalation QAM #60 ea 01/11/23 mcg-vilanterol 25 mcg/dose inhalation powder (Breo Ellipta) Results & Data (ED) Vital Signs Vital Signs - 24 hr 08/10/23 20:02 08/10/23 20:02 08/10/23 20:02 Temperature 36.5 C Temperature Source Oral Pulse Rate 77 Pulse Rate [Apical] Pulse Rate from SpO2 Sensor Pulse Rhythm [Apical] Pulse Strength [Apical] Respiratory Rate 16 Respiratory Effort / Characteristics Non-Labored Spontaneous Non-Labored Spontaneous Respiratory Depth Normal Normal Respiratory Pattern Regular Blood Pressure 132/78 Blood Pressure [Left Arm] Blood Pressure Mean 96 Blood Pressure Mean [Left Arm] Blood Pressure Position [Left Arm] Pulse Oximetry 94 94 Oxygen Delivery Method Room Air Room Air Oxygen Flow Rate Sepsis Recent Fever Within 48 Hours No Sepsis New/Unexplained Change in Mental Status No Sepsis Action Taken by Nursing No Action Required 08/10/23 20:25 08/10/23 20:26 08/10/23 20:30 Temperature Temperature Source Pulse Rate 76 76 75 Pulse Rate [Apical] Pulse Rate from SpO2 Sensor 76 74 Pulse Rhythm [Apical] Pulse Strength [Apical] Respiratory Rate 14 24 Respiratory Effort / Characteristics Respiratory Depth Respiratory Pattern Blood Pressure Blood Pressure [Left Arm] Blood Pressure Mean Blood Pressure Mean [Left Arm] Blood Pressure Position [Left Arm] Pulse Oximetry 93 91 Oxygen Delivery Method Oxygen Flow Rate Sepsis Recent Fever Within 48 Hours Sepsis New/Unexplained Change in Mental Status Sepsis Action Taken by Nursing 08/10/23 20:32 08/10/23 20:32 08/10/23 20:39 Temperature Temperature Source Pulse Rate 74 72 Pulse Rate [Apical] Pulse Rate from SpO2 Sensor 72 Pulse Rhythm [Apical] Pulse Strength [Apical] Respiratory Rate 17 21 Respiratory Effort / Characteristics Respiratory Depth Respiratory Pattern Blood Pressure 102/72 Blood Pressure [Left Arm] Blood Pressure Mean 82 Blood Pressure Mean [Left Arm] Blood Pressure Position [Left Arm] Pulse Oximetry 93 90 Oxygen Delivery Method Room Air Room Air Oxygen Flow Rate 93 Sepsis Recent Fever Within 48 Hours Sepsis New/Unexplained Change in Mental Status Sepsis Action Taken by Nursing 08/10/23 20:46 08/10/23 21:00 08/10/23 21:30 Temperature Temperature Source Pulse Rate 72 71 Pulse Rate [Apical] 72 Pulse Rate from SpO2 Sensor 72 71 Pulse Rhythm [Apical] Regular Pulse Strength [Apical] Normal Respiratory Rate 18 22 24 Respiratory Effort / Characteristics Non-Labored Spontaneous Respiratory Depth Normal Respiratory Pattern Regular Blood Pressure 176/51 H Blood Pressure [Left Arm] 102/72 Blood Pressure Mean 92 Blood Pressure Mean [Left Arm] 82 Blood Pressure Position [Left Arm] Semi-fowlers Pulse Oximetry 94 89 L 94 Oxygen Delivery Method Room Air Oxygen Flow Rate Sepsis Recent Fever Within 48 Hours Sepsis New/Unexplained Change in Mental Status Sepsis Action Taken by Nursing 08/10/23 21:47 08/10/23 22:00 08/10/23 22:01 Temperature Temperature Source Pulse Rate 69 76 87 Pulse Rate [Apical] Pulse Rate from SpO2 Sensor 69 Pulse Rhythm [Apical] Pulse Strength [Apical] Respiratory Rate 22 28 H 18 Respiratory Effort / Characteristics Respiratory Depth Respiratory Pattern Blood Pressure 135/64 Blood Pressure [Left Arm] Blood Pressure Mean 87 Blood Pressure Mean [Left Arm] Blood Pressure Position [Left Arm] Pulse Oximetry 93 Oxygen Delivery Method Oxygen Flow Rate Sepsis Recent Fever Within 48 Hours Sepsis New/Unexplained Change in Mental Status Sepsis Action Taken by Nursing 08/10/23 22:01 08/10/23 22:02 08/10/23 22:30 Temperature Temperature Source Pulse Rate 72 Pulse Rate [Apical] Pulse Rate from SpO2 Sensor 64 Pulse Rhythm [Apical] Pulse Strength [Apical] Respiratory Rate 23 Respiratory Effort / Characteristics Respiratory Depth Normal Respiratory Pattern Blood Pressure 176/51 H Blood Pressure [Left Arm] Blood Pressure Mean 95 Blood Pressure Mean [Left Arm] Blood Pressure Position [Left Arm] Pulse Oximetry 92 Oxygen Delivery Method Oxygen Flow Rate Sepsis Recent Fever Within 48 Hours Sepsis New/Unexplained Change in Mental Status Sepsis Action Taken by Nursing 08/10/23 22:30 08/10/23 23:00 08/10/23 23:00 Temperature Temperature Source Pulse Rate 68 Pulse Rate [Apical] Pulse Rate from SpO2 Sensor 66 Pulse Rhythm [Apical] Pulse Strength [Apical] Respiratory Rate 18 Respiratory Effort / Characteristics Respiratory Depth Respiratory Pattern Blood Pressure 132/65 133/65 Blood Pressure [Left Arm] Blood Pressure Mean 99 91 Blood Pressure Mean [Left Arm] Blood Pressure Position [Left Arm] Pulse Oximetry 93 Oxygen Delivery Method Oxygen Flow Rate Sepsis Recent Fever Within 48 Hours Sepsis New/Unexplained Change in Mental Status Sepsis Action Taken by Shelter Medications Current Medication List: was personally reviewed by me Laboratory Data Attestation: I reviewed the patient's lab results. 08/11/23 04:46 08/11/23 04:46 Lab Results 08/10/23 08/10/23 08/10/23 Range/Units 20:38 21:24 21:56 WBC 11.71 H (4.8-10.8) K/ul RBC 3.20 L (4.70-6.10) M/uL Hgb 10.7 L (14.0-18.0) g/dl Hct 30.8 L (42.0-52.0) % MCV 96.3 (80.0-100.0) fL MCH 33.4 (25.0-34.0) pg MCHC 34.7 (32.0-36.0) g/dL RDW Std Deviation 48.2 H (36.4-46.3) fL RDW Coeff of [place] 13.5 (11.5-14.5) % Plt Count 208 (130-400) K/uL MPV 10.6 (9.4-12.4) fL Immature Gran % (Auto) 1.4 % Neut % (Auto) 30.2 % Lymph % (Auto) 61.4 % [place] % (Auto) 5.7 % Eos % (Auto) 1.0 % Baso % (Auto) 0.3 % Neut # (Auto) 3.54 (1.40-6.50) K/uL Lymph # (Auto) 7.19 H (1.20-3.40) K/uL Warrick # (Auto) 0.67 H (0.11-0.59) K/uL Eos # (Auto) 0.12 (0.00-0.50) K/uL Baso # (Auto) 0.03 (0.00-0.20) K/uL Immature Gran # (Auto) 0.16 (0.01-0.20) K/uL Smudge Cells Present PT 11.3 (9.0-12.0) Seconds INR 1.0 (0.9-1.1) APTT 31.9 H (21.0-31.0) Seconds PTT Ratio 1.1 Sodium 134 L (136-145) mmol/L Potassium 3.8 (3.5-5.1) mmol/L Chloride 103 (98-107) mmol/L Carbon Dioxide 23 (21-32) mmol/L Anion Gap 8 (3-11) BUN 32 H (6-23) mg/dl Creatinine 1.10 (0.6-1.4) mg/dl Est Cr Clr Drug Dosing 49.9 ml/min Est GFR ( Amer) 74.1 ml/min Est GFR (Non-Af Amer) 64.0 ml/min BUN/Creatinine Ratio 29.1 H (10-20) Glucose 169 H (70-99(Fasting)) mg/dl Estimat Average Glucose 143 mg/dl Hemoglobin A1c 6.6 H (4.5-5.6) % Lactate 0.6 (0.4-2.0) mmol/L Calcium 9.8 (8.6-10.3) mg/dl Magnesium 1.9 (1.7-2.4) mg/dl Total Bilirubin 0.3 (0.2-1.0) mg/dl AST 15 (13-39) U/L ALT 10 (7-52) U/L Alkaline Phosphatase 55 (34-104) U/L Troponin I High Sens 7.5 (0-20) pg/ml Total Protein 6.8 (6.0-8.3) gm/dl Albumin 3.6 (3.4-5.0) gm/dl Globulin 3.2 (2.5-4.0) gm/dl Albumin/Globulin Ratio 1.1 (0.9-2) Procalcitonin 0.30 (0-0.5) ng/ml Adenovirus (PCR) Not Detected (NotDetected) B. pertussis DNA (PCR) Not Detected (NotDetected) B.parapertussis DNA PCR Not Detected (NotDetected) C. pneumoniae DNA (PCR) Not Detected (NotDetected) Coronavirus OC43 (PCR) Not Detected (NotDetected) Coronavirus HKU1 (PCR) Not Detected (NotDetected) Coronavirus 229E (PCR) Not Detected (NotDetected) SARS-CoV-2 (PCR) Not Detected (NotDetected) Coronavirus NL63 (PCR) Not Detected (NotDetected) Human Metapneumovir PCR Not Detected (NotDetected) Influenza Type A (PCR) Not Detected (NotDetected) Influenza Type B (PCR) Not Detected (NotDetected) M. pneumoniae (PCR) Not Detected (NotDetected) Parainfluenza 1 (PCR) Not Detected (NotDetected) Parainfluenza 2 (PCR) Not Detected (NotDetected) Parainfluenza 3 (PCR) Not Detected (NotDetected) Parainfluenza 4 (PCR) Not Detected (NotDetected) RSV (PCR) Not Detected (NotDetected) Entero/Rhino (PCR) Not Detected (NotDetected) Administered Medications Albuterol (Albut/Ipratrop 3mg/0.5mg Neb 3 Ml Vial) 3 ml NEB QIDR [facility]; Protocol Stop: 09/10/23 10:59 Last Admin: 08/11/23 14:43 Dose: 3 ml Documented By: Admin: 08/11/23 11:05 Dose: Not Given Documented By: Admin: 08/11/23 07:13 Dose: 3 ml Documented By: [facility] Enoxaparin Sodium (Enoxaparin Inj 40 Mg/0.4 Ml Syr) [facility] [place]: 09/10/23 08:59 Last Admin: 08/11/23 10:37 Dose: Not Given Documented By: OTF Ferrous Sulfate (Ferrous Sulfate 325 Mg Tab) 325 mg PO QAM [facility] Stop: 09/10/23 08:59 Last Admin: 08/11/23 10:21 Dose: 325 mg Documented By: OTF Fluticasone Propionate (Fluticasone Propionate Na Spr 16 Gm Btl) 1 sprays NA DAILY FRANCIS Stop: 09/10/23 08:59 Last Admin: 08/11/23 10:21 Dose: 1 sprays Documented By: OTF Fluticasone/Vilanterol (Fluticasone/Vilanterol 200/25mcg 14 Puffs/Inhaler) 1 puffs INH QAM [facility] Stop: 09/10/23 08:59 Last Admin: 08/11/23 10:22 Dose: 1 puffs Documented By: OTF Guaifenesin (Guaifenesin 600 Mg Tabcr) 600 mg PO Q12H [facility] Stop: 09/10/23 05:59 Last Admin: 08/11/23 06:13 Dose: 600 mg Documented By: MARK Potassium Chloride/Sodium Chloride (Normal Saline W/20 Meq Kcl) 20 meq in 1,000 mls @ 50 mls/hr IV .Q20H ONE; Protocol Stop: 08/11/23 19:07 Last Infusion: 08/11/23 06:29 Dose: 50 mls/hr Documented By: Infusion: 08/11/23 03:54 Dose: 0 mls/hr Documented By: Admin: 08/11/23 01:57 EDT Dose: 50 mls/hr Documented By: Piperacillin Sod/Tazobactam (Sod 4.5 gm/ Dextrose) 100 mls @ 25 mls/hr IV Q8H [facility]; Protocol Stop: 08/18/23 10:29 Last Admin: 08/11/23 11:41 Dose: 25 mls/hr Documented By: OTF Lactobacillus Acidophilus (Advanced Probiotic 1250 Mg Capsule) 2 cap PO DAILY FRANCIS Stop: 09/10/23 08:59 Last Admin: 08/11/23 10:21 Dose: 2 cap Documented By: OTF Multivitamins/Minerals (Cerovite Adv Formula Tab) 1 tab PO DAILY FRANCIS Stop: 09/10/23 08:59 Last Admin: 08/11/23 10:21 Dose: 1 tab Documented By: OTF Polyethylene Glycol (Polyethylene (Miralax) 17 Gm Pack) 17 gm PO DAILY FRANCIS Stop: 09/10/23 10:59 Last Admin: 08/11/23 11:41 Dose: 17 gm Documented By: OTF Discontinued Medications Albuterol (Albut/Ipratrop 3mg/0.5mg Neb 3 Ml Vial) 3 ml NEB NOW STA; Protocol Stop: 08/10/23 23:03 Last Admin: 08/11/23 00:14 Dose: 3 ml Documented By: Albuterol (Albut/Ipratrop 3mg/0.5mg Neb 3 Ml Vial) 3 ml NEB NOW STA; Protocol Stop: 08/11/23 03:54 Last Admin: 08/11/23 05:12 Dose: Not Given Documented By: MARJORIE Piperacillin Sod/Tazobactam Sod (Zosyn) 4.5 gm in 100 mls @ 200 mls/hr IV NOW ONE Stop: 08/10/23 22:31 Last Infusion: 08/11/23 01:27 EDT Dose: Infused Documented By: Admin: 08/11/23 00:14 Dose: 200 mls/hr Documented By: Sodium Chloride (Nss) 1,000 mls @ 999 mls/hr IV .Q1H1M ONE Stop: 08/10/23 23:02 Last Infusion: 08/11/23 01:27 EDT Dose: Infused Documented By: Admin: 08/10/23 23:13 Dose: 999 mls/hr Documented By: ANDI Magnesium Sulfate/Dextrose (Magnesium Sulfate / D5w) 1 gm in 100 mls @ 50 mls/hr IV ONE ONE Stop: 08/11/23 01:58 EST Last Infusion: 08/11/23 02:58 Dose: Infused Documented By: Admin: 08/11/23 01:58 EDT Dose: 50 mls/hr Documented By: Methylprednisolone 20 mg/ (Syringe) 0.32 mls @ 1.5 mls/min IV NOW STA Stop: 08/11/23 03:58 Last Admin: 08/11/23 04:05 Dose: 1.5 mls/min Documented By: MARK Ioversol (Optiray 320 500ml) 108 ml IV ONCE ONE Stop: 08/11/23 01:17 EST Last Admin: 08/11/23 01:24 EDT Dose: 108 ml Documented By: PLW Imaging Data Radiologist's Impression: Chest X-Ray 08/10/23 20:07 XR chest 1V portable CLINICAL HISTORY: Chest pain, nonspecific TECHNIQUE: Single frontal radiograph of the chest was obtained. Comparison: Comparison is made to chest radiograph 06/27/2023 FINDINGS: No lines and tubes are seen. Calcified aortic knob is seen. The lungs are clear, previously noted faint bilateral airspace opacities are not seen on today's exam. No evidence of pleural effusion or pneumothorax. IMPRESSION: No acute chest disease. ACT 112: Negative or not required by law. Electronically signed by: Wes Wilks M.D. 08/10/2023 10:02 PM Chest CTA 08/10/23 23:02 Exam(s): CTA CHEST EXAM: CT Angiography Chest With Intravenous Contrast CLINICAL HISTORY: sob. TECHNIQUE: Axial computed tomographic angiography images of the chest with intravenous contrast. CTDI is 14 mGy and DLP is 508.07 mGy-cm. Automated exposure control was utilized for the study. A dose lowering technique was utilized adhering to the principles of ALARA. MIP reconstructed images were created and reviewed. COMPARISON: CTA chest dated 06/27/2023 FINDINGS: Limitations: There is extensive respiratory artifact, which degrades image quality throughout the examination. Pulmonary arteries: Accounting for limitations with respiratory artifact, there is no evidence for pulmonary embolism. Several distal subsegmental pulmonary artery segments are of nondiagnostic quality. Aorta: No acute findings. No thoracic aortic aneurysm. Lungs: Dependent ground-glass opacities. There is also diffuse interlobular septal thickening involving the lung apices with patchy ground-glass opacities. Pleural space: Unremarkable. No significant effusion. No pneumothorax. Heart: Cardiomegaly. Mild coronary artery calcification. No pericardial effusion. Bones/joints: No acute fracture. No dislocation. Soft tissues: Unremarkable. Lymph nodes: Presumed reactive hilar and pericarinal lymphadenopathy measuring up to 1.6 cm in short axis diameter involving the right hilum. IMPRESSION: 1. Accounting for limitations with extensive respiratory artifact, there is no evidence for pulmonary embolism. Several distal subsegmental pulmonary artery segments are of nondiagnostic quality. 2. Dependent ground-glass opacities. There is also diffuse interlobular septal thickening involving the lung apices with patchy ground-glass opacities. Favor interstitial and alveolar pulmonary edema over infection. No pleural effusion or pneumothorax. 3. Presumed reactive hilar and pericarinal lymphadenopathy measuring up to 1.6 cm in short axis diameter involving the right hilum. Electronically signed by: Shawn Chambers MD 08/11/23 03:44 AM Discharge Plan Visit Data Chief Complaint: Shortness of Breath/Dyspnea Stated Complaint: TROUBLE BREATHING,COUGHING,LOW O2 ED Provider: Vel Pepper Discharge Problem: Acute hypoxemic respiratory failure Patient Disposition: Admitted As Inpatient Discharge Instructions Interventions: ED Discharge Assessment Last Done: 08/11/23 00:02
[2023-08-10 21:12] LABS: Albumin Globulin Ratio 1.1 (0.9-2); Albumin Level 3.6 gm/dl (3.4-5.0); BUN Creatinine Ratio 29.1 (10-20); Bilirubin,Total 0.3 mg/dl (0.2-1.0); Calcium 9.8 mg/dl (8.6-10.3); Creatinine Clr Calc Pharmacy 49.9 ml/min; Est GFR (African American) 74.1 ml/min; Globulin 3.2 gm/dl (2.5-4.0); Hematocrit (blood only) 30.8 % (42.0-52.0); Hemoglobin 10.7 g/dl (14.0-18.0); Mean Corpuscular Hemoglobin 33.4 pg (25.0-34.0); Mean Corpuscular Hgb Conc 34.7 g/dL (32.0-36.0); Mean Corpuscular Volume 96.3 fL (80.0-100.0); Mean Platelet Volume 10.6 fL (9.4-12.4); Platelet Count 208 K/uL (130-400); Potassium 3.8 mmol/L (3.5-5.1); RDW Coefficient of Variation 13.5 % (11.5-14.5); RDW Standard Deviation 48.2 fL (36.4-46.3); Total Protein 6.8 gm/dl (6.0-8.3); White Blood Count 11.71 K/ul (4.8-10.8)
[2023-08-10 21:18] LABS: Troponin I High Sensitivity 7.5 pg/ml (0-20)
[2023-08-10 21:23] LABS: Partial Thromboplastin Ratio 1.1; Partial Thromboplastin Time 31.9 Seconds (21.0-31.0); Prothrombin Time 11.3 Seconds (9.0-12.0)
[2023-08-10] MEDS ORDERED: PIPERACILLIN/TAZOBACTAM 4.5 GM/100 ML BAG IV ONE (22:02)
[2023-08-10] MEDS ORDERED: SODIUM CHLORIDE 0.9% 1,000 ML IV ONE (22:02)
--- NOTE | 2023-08-10 22:04 | XRay Report ---
XR chest 1V portable CLINICAL HISTORY: Chest pain, nonspecific TECHNIQUE: Single frontal radiograph of the chest was obtained. Comparison: Comparison is made to chest radiograph 06/27/2023 FINDINGS: No lines and tubes are seen. Calcified aortic knob is seen. The lungs are clear, previously noted adriana nt bilateral airspace opacities are not seen on today's exam. No evidence of pleural effusion or pneu mothorax. IMPRESSION: No acute chest disease. ACT 112: Negative or not required by law. Electronically signed by: Wes Wilks M.D. 08/10/2023 10:02 PM
[2023-08-10 22:23] LABS: Adenovirus PCR Not Detected (NotDetected); Bordetella parapertussis PCR Not Detected (NotDetected); Bordetella pertussis PCR Not Detected (NotDetected); Chlamydia pneumoniae PCR Not Detected (NotDetected); Coronavirus 229E PCR Not Detected (NotDetected); Coronavirus CoV-2 (COVID19)PCR Not Detected (NotDetected); Coronavirus HKU1 PCR Not Detected (NotDetected); Coronavirus NL63 PCR Not Detected (NotDetected); Coronavirus OC43PCR Not Detected (NotDetected); Human Metapneumovirus PCR Not Detected (NotDetected); Influenza A PCR Not Detected (NotDetected); Influenza B PCR Not Detected (NotDetected); Mycoplasma pneumoniae PCR Not Detected (NotDetected); Parainfluenza Virus 1 PCR Not Detected (NotDetected); Parainfluenza Virus 2 PCR Not Detected (NotDetected); Parainfluenza Virus 3 PCR Not Detected (NotDetected); Parainfluenza Virus 4 PCR Not Detected (NotDetected); Respiratory Syncytial VirusPCR Not Detected (NotDetected); Rhinovirus/Enterovirus PCR Not Detected (NotDetected)
[2023-08-10 22:24] LABS: Basophils # (auto) 0.03 K/uL (0.00-0.20); Basophils % (auto) 0.3 %; Eosinophils # (auto) 0.12 K/uL (0.00-0.50); Immature Granulocytes # (auto) 0.16 K/uL (0.01-0.20); Immature Granulocytes % (auto) 1.4 %; Lymphocytes # (auto) 7.19 K/uL (1.20-3.40); Lymphocytes % (auto) 61.4 %; Monocytes # (auto) 0.67 K/uL (0.11-0.59); Monocytes % (auto) 5.7 %; Neutrophils # (auto) 3.54 K/uL (1.40-6.50); Neutrophils % (auto) 30.2 %; Smudge Cells Present
[2023-08-10 22:43] LABS: Magnesium 1.9 mg/dl (1.7-2.4)
[2023-08-10] MEDS ORDERED: ALBUT/IPRATROP 3MG/0.5MG NEB 3 ML VIAL NEB STA (23:02)
--- NOTE | 2023-08-10 23:05 | History & Physical Report ---
Date of Service August 10, 2023 Assessment & Plan (1) Acute hypoxemic respiratory failure: Plan: ? 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 Rule out CHF given CT findings Situational hypertension hx MAIC ongoing triple antibiotic regimen under the direction of [facility] ID specialist past history of pulmonary TB status post Rx seizure disorder as per records, stable off maintenance medications Hyperglycemia rule out DM acute on chronic anemia, minimal hemoglobin drop from baseline, patient denies overt bleeding symptoms Medical telemetry Supplemental O2 Hold off on additional antibiotic Rx for now Nebs RTC, short course steroid course Hold patient's acalabrutinib for now given recurrent infection until cleared with patient's [facility] oncologist (Dr. Pierre) Check BNP, 2D echo if elevated Check hemoglobin A1c Anemia work-up if with persistent hemoglobin drop DVT prophylaxis. Lovenox subcu Full code Patient request for to be updated of progress. Ms. Caitlin Rocha, contact #[phone]. Text document was generated using [employer] voice recognition software. It may contain grammatical or spelling errors. Kindly contact undersigned for clarification of any documentation item in question. History of Present Illness Chief Complaint: Worsening cough, shortness of breath, low oxygen Primary Care Provider: Linda Baeza DO History obtained from patient and records. Medical history significant for hyperlipidemia, bronchial asthma, MAIC ongoing antibiotic Rx, past history of pulmonary TB status post Rx, CLL on Acalabrutinib tx, chronic IgG deficiency, skin cancer as per records, seizure disorder as per records, GERD, BPH, chronic anemia (baseline hemoglobin 11-12). Last confinement 2 months ago for viral pneumonia. Patient discharged on prednisone course. Patient with worsening cough symptoms productive of clear sputum the last week. Not sure about sick contacts. Patient has received COVID-19 and RSV vaccination. Denies aspiration. Increased fatigue. No chest pain, worsening shortness of breath especially on exertion. Denies fluid retention. Denies abdominal pain, black/bloody stools/hematuria. Outpatient chest x-ray and testing recommended by provider. Worsening shortness of breath at home today O2 sats noted to be 80s. Patient directed to ER by outpatient provider for further evaluation. O2 sats of 89 on room air documented at the ER IV Zosyn administered at the ER. 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 meperidine AdvReac Mild Vomiting Unverified 01/04/23 16:56 Home Medications Medication Instructions Recorded Confirmed Type ferrous sulfate 325 mg (65 mg 325 mg PO QAM 07/11/21 08/10/23 History iron) tablet (Feosol) Flutter Valve #1 ea 11/29/21 08/10/23 Rx acalabrutinib 100 mg capsule 400 mg PO Q12H 06/06/22 08/10/23 History (Calquence) ethambutol 400 mg tablet 1,600 mg PO 3XWK 06/06/22 08/10/23 History omega-3 fatty acids 1,000 mg 1,000 mg PO DAILY 06/06/22 08/10/23 History capsule Vinegar Tea See Rx Instructions .Route .COMPLEX 01/04/23 08/10/23 History azithromycin 500 mg tablet 500 mg PO .MWF 01/04/23 08/10/23 History fluticasone furoate 200 1 inh inhalation QAM #60 ea 01/11/23 08/10/23 Rx mcg-vilanterol 25 mcg/dose inhalation powder (Breo Ellipta) Privigen 40 g IV .EVERY 28 DAYS 06/27/23 08/10/23 History coenzyme Q10 100 mg capsule (Co 100 mg PO DAILY 06/27/23 08/10/23 History Q-10) diphenhydramine 25 1 tab PO HS PRN Sleep 06/27/23 08/10/23 History mg-acetaminophen 500 mg tablet (Tylenol PM Extra Strength) fluticasone propionate 50 1 spray intranasal DAILY 06/27/23 08/10/23 History mcg/actuation nasal spray,suspension (Allergy Relief (fluticasone)) guar gum 1 packet PO DAILY 06/27/23 08/10/23 History multivitamin with minerals 1 tab PO DAILY 06/27/23 08/10/23 History (Multiple Vitamin-Minerals tablet) rifampin 300 mg capsule 600 mg PO .MON,WED,FRI 06/27/23 08/10/23 History zinc acetate 50 mg (zinc) capsule 50 mg PO QAM 06/27/23 08/10/23 History Probiotic Acidophilus Biobeads 2 cap PO DAILY 08/10/23 08/10/23 History Vitamin C 500 mg PO DAILY 08/10/23 08/10/23 History fluticasone furoate 200 1 inh inhalation DAILY 08/10/23 08/10/23 History mcg-vilanterol 25 mcg/dose inhalation powder (Breo Ellipta) guaifenesin 600 mg tablet, 600 mg PO Q12H 08/10/23 08/10/23 History extended release 12 hr (Mucinex) levalbuterol HCl 1.25 mg/3 mL 1.25 mg inhalation Q4H 08/10/23 08/10/23 History solution for nebulization Past Med/Surg History Medical History Epilepsy Tuberculosis Asthma BPH (benign prostatic hyperplasia) UTI (urinary tract infection) Surgical History History of tonsillectomy and adenoidectomy H/O vasectomy [place] teeth removed S/P TURP 2019 History of bronchoscopy Social History Smoking Status: Never smoker Second Hand Exposure: No; Do You Dip or Chew Tobacco: No; Hx Alcohol Use: No Hx Substance Use: No Preferred Language: Syriac Communication Ability: Effective Sales Representative Door To Door Required: No Beliefs That Will Affect Care: [place]din Current Living Situation: Spouse Other Information That Helps Us Care for You: No Feels Safe at Home: Yes Safety Concerns: Feels Safe At This Time Assistive Devices: Glasses Review of Systems Review of Systems: As per HPI, all other systems reviewed and negative Physical Exam Physical Exam: GENERAL: Comfortable, slightly anxious, pleasant, no respiratory distress SKIN: Pallor, warm HEENT: Pale palpebral conjunctivae, no ptosis, dry buccal mucosa NECK : Supple, no tenderness CHEST : Decreased breath sounds, occasional expiratory wheezes, no tenderness HEART : RRR, no obvious murmurs ABDOMEN: no distention, nontender EXTREMITIES : No LE swelling/tenderness, no other conspicuous deformities noted NEUROLOGIC : Coherent, no facial asymmetry, no other gross focality Results & Data Results & Data Vital Signs (Past 12 Hours) Vital Signs Temp Pulse Pulse Resp BP BP Pulse Ox 08/10/23 21:00 72 22 176/51 H 89 L 08/10/23 20:46 72 18 102/72 94 08/10/23 20:39 72 21 102/72 90 08/10/23 20:32 74 17 93 08/10/23 20:32 08/10/23 20:30 75 24 91 08/10/23 20:26 76 14 93 08/10/23 20:25 76 08/10/23 20:02 94 08/10/23 20:02 36.5 C 77 16 132/78 94 O2 Del Method O2 Flow Rate 08/10/23 21:00 08/10/23 20:46 Room Air 08/10/23 20:39 08/10/23 20:32 Room Air 08/10/23 20:32 Room Air 93 08/10/23 20:30 08/10/23 20:26 08/10/23 20:25 08/10/23 20:02 Room Air 08/10/23 20:02 Room Air Laboratory Results Laboratory Results WBC 11.71 K/ul (4.8-10.8) H 08/10/23 20:38 RBC 3.20 M/uL (4.70-6.10) L 08/10/23 20:38 Hgb 10.7 g/dl (14.0-18.0) L 08/10/23 20:38 Hct 30.8 % (42.0-52.0) L 08/10/23 20:38 MCV 96.3 fL (80.0-100.0) 08/10/23 20:38 MCH 33.4 pg (25.0-34.0) 08/10/23 20:38 MCHC 34.7 g/dL (32.0-36.0) 08/10/23 20:38 RDW Std Deviation 48.2 fL (36.4-46.3) H 08/10/23 20:38 RDW Coeff of [place] 13.5 % (11.5-14.5) 08/10/23 20:38 Plt Count 208 K/uL (130-400) 08/10/23 20:38 MPV 10.6 fL (9.4-12.4) 08/10/23 20:38 Immature Gran % (Auto) 1.4 % 08/10/23 20:38 Neut % (Auto) 30.2 % 08/10/23 20:38 Lymph % (Auto) 61.4 % 08/10/23 20:38 [place] % (Auto) 5.7 % 08/10/23 20:38 Eos % (Auto) 1.0 % 08/10/23 20:38 Baso % (Auto) 0.3 % 08/10/23 20:38 Neut # (Auto) 3.54 K/uL (1.40-6.50) 08/10/23 20:38 Lymph # (Auto) 7.19 K/uL (1.20-3.40) H 08/10/23 20:38 [place] # (Auto) 0.67 K/uL (0.11-0.59) H 08/10/23 20:38 Eos # (Auto) 0.12 K/uL (0.00-0.50) 08/10/23 20:38 Baso # (Auto) 0.03 K/uL (0.00-0.20) 08/10/23 20:38 Immature Gran # (Auto) 0.16 K/uL (0.01-0.20) 08/10/23 20:38 Smudge Cells Present 08/10/23 20:38 PT 11.3 Seconds (9.0-12.0) 08/10/23 20:38 INR 1.0 (0.9-1.1) 08/10/23 20:38 APTT 31.9 Seconds (21.0-31.0) H 08/10/23 20:38 PTT Ratio 1.1 08/10/23 20:38 Sodium 134 mmol/L (136-145) L 08/10/23 20:38 Potassium 3.8 mmol/L (3.5-5.1) 08/10/23 20:38 Chloride 103 mmol/L (98-107) 08/10/23 20:38 Carbon Dioxide 23 mmol/L (21-32) 08/10/23 20:38 Anion Gap 8 (3-11) 08/10/23 20:38 BUN 32 mg/dl (6-23) H 08/10/23 20:38 Creatinine 1.10 mg/dl (0.6-1.4) 08/10/23 20:38 Est Cr Clr Drug Dosing 49.9 ml/min 08/10/23 20:38 Est GFR ( Amer) 74.1 ml/min 08/10/23 20:38 Est GFR (Non-Af Amer) 64.0 ml/min 08/10/23 20:38 BUN/Creatinine Ratio 29.1 (10-20) H 08/10/23 20:38 Glucose 169 mg/dl (70-99(Fasting)) H 08/10/23 20:38 Lactate 0.6 mmol/L (0.4-2.0) 08/10/23 21:56 Calcium 9.8 mg/dl (8.6-10.3) 08/10/23 20:38 Magnesium 1.9 mg/dl (1.7-2.4) 08/10/23 20:38 Total Bilirubin 0.3 mg/dl (0.2-1.0) 08/10/23 20:38 AST 15 U/L (13-39) 08/10/23 20:38 ALT 10 U/L (7-52) 08/10/23 20:38 Alkaline Phosphatase 55 U/L (34-104) 08/10/23 20:38 Troponin I High Sens 7.5 pg/ml (0-20) 08/10/23 20:38 Total Protein 6.8 gm/dl (6.0-8.3) 08/10/23 20:38 Albumin 3.6 gm/dl (3.4-5.0) 08/10/23 20:38 Globulin 3.2 gm/dl (2.5-4.0) 08/10/23 20:38 Albumin/Globulin Ratio 1.1 (0.9-2) 08/10/23 20:38 Procalcitonin 0.30 ng/ml (0-0.5) 08/10/23 20:38 Adenovirus (PCR) Not Detected (NotDetected) 08/10/23 21:24 B. pertussis DNA (PCR) Not Detected (NotDetected) 08/10/23 21:24 B.parapertussis DNA PCR Not Detected (NotDetected) 08/10/23 21:24 C. pneumoniae DNA (PCR) Not Detected (NotDetected) 08/10/23 21:24 Coronavirus OC43 (PCR) Not Detected (NotDetected) 08/10/23 21:24 Coronavirus HKU1 (PCR) Not Detected (NotDetected) 08/10/23 21:24 Coronavirus 229E (PCR) Not Detected (NotDetected) 08/10/23 21:24 SARS-CoV-2 (PCR) Not Detected (NotDetected) 08/10/23 21:24 Coronavirus NL63 (PCR) Not Detected (NotDetected) 08/10/23 21:24 Human Metapneumovir PCR Not Detected (NotDetected) 08/10/23 21:24 Influenza Type A (PCR) Not Detected (NotDetected) 08/10/23 21:24 Influenza Type B (PCR) Not Detected (NotDetected) 08/10/23 21:24 M. pneumoniae (PCR) Not Detected (NotDetected) 08/10/23 21:24 Parainfluenza 1 (PCR) Not Detected (NotDetected) 08/10/23 21:24 Parainfluenza 2 (PCR) Not Detected (NotDetected) 08/10/23 21:24 Parainfluenza 3 (PCR) Not Detected (NotDetected) 08/10/23 21:24 Parainfluenza 4 (PCR) Not Detected (NotDetected) 08/10/23 21:24 RSV (PCR) Not Detected (NotDetected) 08/10/23 21:24 Entero/Rhino (PCR) Not Detected (NotDetected) 08/10/23 21:24 Impressions Chest X-Ray 08/10/23 20:07 XR chest 1V portable CLINICAL HISTORY: Chest pain, nonspecific TECHNIQUE: Single frontal radiograph of the chest was obtained. Comparison: Comparison is made to chest radiograph 06/27/2023 FINDINGS: No lines and tubes are seen. Calcified aortic knob is seen. The lungs are clear, previously noted faint bilateral airspace opacities are not seen on today's exam. No evidence of pleural effusion or pneumothorax. IMPRESSION: No acute chest disease. ACT 112: Negative or not required by law. Electronically signed by: Wes Wilks M.D. 08/10/2023 10:[address] chest; 1. Accounting for limitations with extensive respiratory artifact, there is no evidence for pulmonary embolism. Several distal subsegmental pulmonary artery segments are of nondiagnostic quality. 2. Dependent ground-glass opacities. There is also diffuse interlobular septal thickening involving the lung apices with patchy ground-glass opacities. Favor interstitial and alveolar pulmonary edema over infection. No pleural effusion or pneumothorax. 3. Presumed reactive hilar and pericarinal lymphadenopathy measuring up to 1.6 cm in short axis diameter involving the right hilum. Diagnostic Findings EKG as per my interpretation : Rate 75, NSR, normal axis, no ischemia
[2023-08-10] MEDS ORDERED: LORazepam 0.5 MG TAB PO PRN (23:07)
[2023-08-10] MEDS ORDERED: PROMETHAZINE HCL 6.25 MG in SODIUM CHLORIDE 0.9% 50 ML IV PRN (23:07)
[2023-08-10] MEDS ORDERED: MELATONIN 3 MG TAB PO PRN (23:07)
[2023-08-10] MEDS ORDERED: NSS + 20MEQ KCL 20 MEQ/1,000 ML BAG IV ONE (23:08)
[2023-08-10] MEDS ORDERED: MAGNESIUM SULFATE / D5W 1 GM/100 ML BAG IV ONE (23:59)
[2023-08-11] MEDS ORDERED: ACETAMINOPHEN 325 MG TAB PO PRN (00:03)
[2023-08-11] MEDS ORDERED: OPTIRAY 320 500ml IV ONE (01:16)
--- NOTE | 2023-08-11 03:45 | CT Scan Report ---
Exam(s): CTA CHEST EXAM: CT Angiography Chest With Intravenous Contrast CLINICAL HISTORY: sob. TECHNIQUE: Axial computed tomographic angiography images of the chest with intravenous contrast. CTDI is 14 mGy and DLP is 508.07 mGy-cm. Automated exposure control was utilized for the study. A dose lowering technique was utilized adhering to the principles of ALARA. MIP reconstructed images were created and reviewed. COMPARISON: CTA chest dated 06/27/2023 FINDINGS: Limitations: There is extensive respiratory artifact, which degrades image quality throughout the examination. Pulmonary arteries: Accounting for limitations with respiratory artifact, there is no evidence for pulmonary embolism. Several distal subsegmental pulmonary artery segments are of nondiagnostic quality. Aorta: No acute findings. No thoracic aortic aneurysm. Lungs: Dependent ground-glass opacities. There is also diffuse interlobular septal thickening involving the lung apices with patchy ground-glass opacities. Pleural space: Unremarkable. No significant effusion. No pneumothorax. Heart: Cardiomegaly. Mild coronary artery calcification. No pericardial effusion. Bones/joints: No acute fracture. No dislocation. Soft tissues: Unremarkable. Lymph nodes: Presumed reactive hilar and pericarinal lymphadenopathy measuring up to 1.6 cm in short axis diameter involving the right hilum. IMPRESSION: 1. Accounting for limitations with extensive respiratory artifact, there is no evidence for pulmonary embolism. Several distal subsegmental pulmonary artery segments are of nondiagnostic quality. 2. Dependent ground-glass opacities. There is also diffuse interlobular septal thickening involving the lung apices with patchy ground-glass opacities. Favor interstitial and alveolar pulmonary edema over infection. No pleural effusion or pneumothorax. 3. Presumed reactive hilar and pericarinal lymphadenopathy measuring up to 1.6 cm in short axis diameter involving the right hilum. Electronically signed by: Shawn Chambers MD 08/11/23 03:44 AM
[2023-08-11] MEDS ORDERED: ALBUT/IPRATROP 3MG/0.5MG NEB 3 ML VIAL NEB STA (03:53)
[2023-08-11] MEDS ORDERED: methylPREDNISolone 20 MG in SYRINGE 0 ML IV STA (03:57)
[2023-08-11 05:01] LABS: Allen Test Pos (Pos); Base Excess ABG -0.3 mEq/L (-9-1.8); HCO3 ABG 23 mmol/L (19-24); Oxygen Saturation ABG 97.9 % (90-95); PCO2 ABG 32 mmHg (35-46); PO2 ABG 91 mmHg (80-95); pH ABG 7.46 (7.35-7.45)
[2023-08-11] MEDS ORDERED: ALBUT/IPRATROP 3MG/0.5MG NEB 3 ML VIAL NEB PRN (05:18)
[2023-08-11 05:23] LABS: Hematocrit (blood only) 30.8 % (42.0-52.0); Hemoglobin 10.4 g/dl (14.0-18.0); Mean Corpuscular Hemoglobin 32.9 pg (25.0-34.0); Mean Corpuscular Hgb Conc 33.8 g/dL (32.0-36.0); Mean Corpuscular Volume 97.5 fL (80.0-100.0); Mean Platelet Volume 10.7 fL (9.4-12.4); Platelet Count 204 K/uL (130-400); RDW Coefficient of Variation 13.7 % (11.5-14.5); Red Blood Count 3.16 M/uL (4.70-6.10); White Blood Count 13.24 K/ul (4.8-10.8)
[2023-08-11 05:25] LABS: Calcium 9.3 mg/dl (8.6-10.3); Creatinine Clr Calc Pharmacy 57.2 ml/min; Est GFR (African American) 87.4 ml/min; Est GFR (Non-African American) 75.4 ml/min; Potassium 4.1 mmol/L (3.5-5.1)
[2023-08-11] MEDS: guaiFENesin 600 MG TABCR PO SCH ×2 (06:13→17:55)
[2023-08-11] MEDS: ALBUT/IPRATROP 3MG/0.5MG NEB 3 ML VIAL NEB SCH ×4 (07:13→19:43)
[2023-08-11 07:39] LABS: Basophils # (auto) 0.03 K/uL (0.00-0.20); Basophils % (auto) 0.2 %; Eosinophils # (auto) 0.12 K/uL (0.00-0.50); Eosinophils % (auto) 0.9 %; Immature Granulocytes % (auto) 1.5 %; Neutrophils # (auto) 3.49 K/uL (1.40-6.50); Neutrophils % (auto) 26.4 %; Polychromasia 1+; Smudge Cells Present
[2023-08-11 08:05] LABS: Estimated Average Glucose 143 mg/dl; Hemoglobin A1C 6.6 % (4.5-5.6)
[2023-08-11] MEDS ORDERED: FLUTICASONE/VILANTEROL 200/25MCG 14 PUFFS/INHALER INH SCH (09:00)
[2023-08-11] MEDS: FLUTICASONE PROPIONATE NA SPR 16 GM BTL SCH (10:21)
[2023-08-11] MEDS: CEROVITE ADV FORMULA TAB PO SCH (10:21)
[2023-08-11] MEDS: ADVANCED PROBIOTIC 1250 MG CAPSULE PO SCH (10:21)
[2023-08-11] MEDS: FERROUS SULFATE 325 MG TAB PO SCH (10:21)
[2023-08-11] MEDS: FLUTICASONE/VILANTEROL 200/25MCG 14 PUFFS/INHALER INH SCH (10:22)
[2023-08-11] MEDS: ENOXAPARIN INJ 40 MG/0.4 ML SYR SQ SCH (10:37)
[2023-08-11] MEDS: POLYETHYLENE (MIRALAX) 17 GM PACK PO SCH (11:41)
[2023-08-11] MEDS: PIPERACILLIN/TAZOBACTAM 4.5 GM in DEXTROSE 5% MINI-B 100 ML IV SCH ×2 (11:41→17:48)
--- NOTE | 2023-08-11 11:45 | Pulmonary Consultation ---
Date of Consultation August 11, 2023 Assessment & Plan (1) LULI (mycobacterium avium-intracellulare): (2) Bronchiectasis: (3) Abnormal chest CT: (4) Multifocal pneumonia: (5) CLL (chronic lymphocytic leukemia): Plan 78-year-old male with history of MAC infection, pseudomonal colonization and CLL who presented to the hospital due to ongoing fatigue and shortness of breath. He had a bronchoscopy December 2021 which resulted in evidence of MAC infection Pseudomonas colonization. He has been on treatment for MAC since that time and follows with [facility]. Does not appear that he has had follow-up sputum cultures to show clearance of his MAC infection. We will obtain AFB sputum cultures x3 every 8 hours during this hospitalization. This result may take 6 weeks to finalize. May need his regimen for MAC augmented given the persistence of opacities noted on his CT chest. Other possibilities include pneumonia related to CLL therapy. He does have a history of conization with Pseudomonas. We will start the patient on Zosyn to cover for pseudomonal infection. Begin airway clearance therapy with percussive vest therapy 4 times daily and hypertonic saline twice daily. We will also order a mixed connective tissue disorder work-up to evaluate for ILD related to mixed connective tissue disorder. CRP ordered elevated 8.7. ESR substantially elevated as well to 94. PFT from 11/28/2021 notable for mild airflow obstruction with an FEV1 of 78%. DLCO was severely reduced at 43%. Patient is a lifelong non-smoker. Patient and in agreement with the plan. is present towards the end of the discussion. Thanks for the consult. We will continue to follow with you. Discussed with Dr. Vidal in person. History of Present Illness Reason for Consultation: Hypoxia and persistent pneumonia Attending Physician: José Miguel Morales MD History of Present Illness 78-year-old male with a history of CLL and MAC infection diagnosed in December 2021 presenting to the hospital due to increasing shortness of breath. He notes lethargy and shortness of breath for the past 2 weeks. He occasionally has small amount of phlegm when she coughs up. Denies any hemoptysis. He is normally very active and able to do 50 push-ups a day and run up and down the steps for aerobic exercise. 2 months ago he was admitted to the hospital for a parainfluenza infection and has not felt quite right since that period of time. He follows with Dr. Claros in the outpatient pulmonary clinic and [facility] with respect to his MAC infection. Remains on triple antibiotic therapy for MAC. In December 2021 Pseudomonas was also isolated from bronchoscopy on his BAL fluid. CT chest this admission was a very poor study due to the significant motion artifact, but there appeared to be patchy areas of groundglass opacities unchanged from prior CT. It does not appear that repeat sputum cultures for AFB have been obtained in our system to ensure clearance of his underlying MAC infection. Allergies Allergy/AdvReac Type Severity Reaction Status Date / Time rofecoxib Allergy Intermediate RASH,SWELLING, Verified 01/04/23 16:56 UNSTEADY GAIT/STUMBLING lamotrigine [From Lamictal] AdvReac Mild cannot Unverified 01/04/23 16:56 think straight, stumbling and falling. meperidine AdvReac Mild Vomiting Unverified 01/04/23 16:56 Home Medications Medication Instructions Recorded Confirmed Type ferrous sulfate 325 mg (65 mg 325 mg PO QAM 07/11/21 08/10/23 History iron) tablet (Feosol) Flutter Valve #1 ea 11/29/21 08/10/23 Rx acalabrutinib 100 mg capsule 400 mg PO Q12H 06/06/22 08/10/23 History (Calquence) ethambutol 400 mg tablet 1,600 mg PO 3XWK 06/06/22 08/10/23 History omega-3 fatty acids 1,000 mg 1,000 mg PO DAILY 06/06/22 08/10/23 History capsule Vinegar Tea See Rx Instructions .Route .COMPLEX 01/04/23 08/10/23 History azithromycin 500 mg tablet 500 mg PO .MWF 01/04/23 08/10/23 History fluticasone furoate 200 1 inh inhalation QAM #60 ea 01/11/23 08/10/23 Rx mcg-vilanterol 25 mcg/dose inhalation powder (Breo Ellipta) Privigen 40 g IV .EVERY 28 DAYS 06/27/23 08/10/23 History coenzyme Q10 100 mg capsule (Co 100 mg PO DAILY 06/27/23 08/10/23 History Q-10) diphenhydramine 25 1 tab PO HS PRN Sleep 06/27/23 08/10/23 History mg-acetaminophen 500 mg tablet (Tylenol PM Extra Strength) fluticasone propionate 50 1 spray intranasal DAILY 06/27/23 08/10/23 History mcg/actuation nasal spray,suspension (Allergy Relief (fluticasone)) guar gum 1 packet PO DAILY 06/27/23 08/10/23 History multivitamin with minerals 1 tab PO DAILY 06/27/23 08/10/23 History (Multiple Vitamin-Minerals tablet) rifampin 300 mg capsule 600 mg PO .MON,WED,FRI 06/27/23 08/10/23 History zinc acetate 50 mg (zinc) capsule 50 mg PO QAM 06/27/23 08/10/23 History Probiotic Acidophilus Biobeads 2 cap PO DAILY 08/10/23 08/10/23 History Vitamin C 500 mg PO DAILY 08/10/23 08/10/23 History fluticasone furoate 200 1 inh inhalation DAILY 08/10/23 08/10/23 History mcg-vilanterol 25 mcg/dose inhalation powder (Breo Ellipta) guaifenesin 600 mg tablet, 600 mg PO Q12H 08/10/23 08/10/23 History extended release 12 hr (Mucinex) levalbuterol HCl 1.25 mg/3 mL 1.25 mg inhalation Q4H 08/10/23 08/10/23 History solution for nebulization Patient History Medical History Epilepsy Tuberculosis Asthma BPH (benign prostatic hyperplasia) UTI (urinary tract infection) Surgical History History of tonsillectomy and adenoidectomy H/O vasectomy [place] teeth removed S/P TURP 2019 History of bronchoscopy Social History Smoking Status: Never smoker Second Hand Exposure: No; Do You Dip or Chew Tobacco: No; Hx Alcohol Use: No Hx Substance Use: No Preferred Language: Sudanese Communication Ability: Effective Cash Sales Audit Clerk Required: No Beliefs That Will Affect Care: Faith Current Living Situation: Spouse Other Information That Helps Us Care for You: No Feels Safe at Home: Yes Safety Concerns: Feels Safe At This Time Assistive Devices: Glasses Review of Systems Review of Systems: All systems reviewed & are unremarkable except as noted in HPI & below Physical Exam Physical Exam: Constitutional: Patient appears to be of their stated age. Patient is in no apparent distress. Patient is well-developed. Eyes: Pupils are equal round and reactive to light. Conjunctivae are normal. Anicteric sclera. Ears nose, mouth and throat: Deferred. Neck: Trachea is midline. Visual inspection is normal. Respiratory: Lower lobe crackles noted. No increased work of breathing. Cardiovascular: Regular rate and rhythm. No murmurs. No edema. Gastrointestinal: Normal bowel sounds, soft, nontender and nondistended. No hepatosplenomegaly noted. Musculoskeletal: No cyanosis. Patient is able to move all extremities. Strength is 5 out of 5 in the upper and lower extremities. Skin: No rashes, warm dry and intact. Neurologic: No obvious focal neurological deficits seen. Psychiatric: Alert and oriented x3 with a euthymic affect. Results & Data Results & Data Vital Signs (Past 12 Hours) Vital Signs Temp Pulse Pulse Pulse Resp BP Pulse Ox 08/11/23 07:54 36.6 C 73 18 129/57 L 93 08/11/23 07:37 69 08/11/23 07:36 88 20 92 08/11/23 05:11 08/11/23 03:31 70 08/11/23 03:24 36.6 C 73 22 125/65 88 L 08/11/23 01:27 EDT 08/11/23 01:27 EDT 36.8 C 78 22 140/61 90 08/11/23 00:48 92 08/11/23 00:45 88 L O2 Del Method O2 Flow Rate 08/11/23 07:54 Nasal Cannula 2 08/11/23 07:37 08/11/23 07:36 Nasal Cannula 2 08/11/23 05:11 Nasal Cannula 2 08/11/23 03:31 08/11/23 03:24 Room Air 08/11/23 01:27 EDT Room Air 08/11/23 01:27 EDT Room Air 08/11/23 00:48 Nasal Cannula 2 08/11/23 00:45 Room Air PG Care Time/CCT Total # of Minutes Spent Total Time Spent with Patient: Total time spent is greater than 50% in coordination of care (as documented) at patient's floor/unit and/or counseling patient: Coding Level of Care Code 95701 INT INP/OBS CARE MIN Diagnoses LULI (mycobacterium avium-intracellulare) A31.0 Bronchiectasis J47.[address] R93.89 Multifocal pneumonia J18.9 CLL (chronic lymphocytic leukemia) C91.10
--- NOTE | 2023-08-11 14:16 | Hospitalist Progress Note ---
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 Lovenox subcu Full code plan of care discussed with patient in detail and at length all questions answered he is understanding, agreeable, comfortable with the plan of care Admission and Anticipated Discharge Date Admission Date: August 10, 2023 Subjective ff up for acute hypoxic respiratory failure, etc seen resting in bed, comfortable on 2 L states he feels slightly improved compared to yesterday still having cough no fever/chills no chest pain no other symptoms Review of Systems Review of Systems: all noted and negative except for above Physical Exam Physical Exam: General- oriented x 3, not in distress, speaks in sentences with no effort or accessory muscle use Eyes- anicteric Neck- no JVD Lungs- mild rhonchi at the bases Heart- normal rate, regular rhythm; no murmurs Abdomen- normal bowel sounds, nondistended, soft, no tenderness Extremities- no pretibial edema, no calf tenderness Neuro- alert, oriented x 3; no gross focal neurologic deficits Skin- warm & dry Results & Data Results & Data Vital Signs (Past 12 Hours) Vital Signs Temp Pulse Pulse Resp BP Pulse Ox O2 Del Method 08/11/23 11:39 36.9 C 67 18 123/58 L 94 Nasal Cannula 08/11/23 10:20 Nasal Cannula 08/11/23 07:54 36.6 C 73 18 129/57 L 93 Nasal Cannula 08/11/23 07:37 69 08/11/23 07:36 88 20 92 Nasal Cannula 08/11/23 05:11 Nasal Cannula 08/11/23 03:31 70 08/11/23 03:24 36.6 C 73 22 125/65 88 L Room Air O2 Flow Rate 08/11/23 11:39 2 08/11/23 10:20 2 08/11/23 07:54 2 08/11/23 07:37 08/11/23 07:36 2 08/11/23 05:11 2 08/11/23 03:31 all noted and reviewed including below 08/11/23 03:24 all noted and reviewed including below
[2023-08-11] MEDS: SODIUM CHLOR 7% 4 ML NEB NEB SCH (19:43)
[2023-08-11] MEDS ORDERED: [UNRECOGNIZED DRUG - OTHER] SCH (21:00)
[2023-08-11] MEDS: [UNRECOGNIZED DRUG - OTHER] PO SCH (21:02)
--- NOTE | 2023-08-11 22:13 | Electrocardiogram Report ---
Test Reason : Blood Pressure : / mmHG Vent. Rate : 076 BPM Atrial Rate : 076 BPM P-R Int : 152 ms QRS Dur : 090 ms QT Int : 370 ms P-R-T Axes : 068 030 061 degrees QTc Int : 416 ms Normal sinus rhythm Normal ECG When compared with ECG of 27-JUN-2023 16:26, Nonspecific T wave abnormality no longer evident in Anterior leads Confirmed by Paul Carranza ([id number]) on 08/11/2023 10:13:22 PM Referred By: REFERRED SELF Confirmed By:Paul Carranza
[2023-08-12] MEDS: PIPERACILLIN/TAZOBACTAM 4.5 GM in DEXTROSE 5% MINI-B 100 ML IV SCH ×3 (02:15→18:08)
[2023-08-12] MEDS: guaiFENesin 600 MG TABCR PO SCH ×2 (06:30→18:07)
[2023-08-12] MEDS: SODIUM CHLOR 7% 4 ML NEB NEB SCH ×2 (07:08→20:39)
[2023-08-12] MEDS: ALBUT/IPRATROP 3MG/0.5MG NEB 3 ML VIAL NEB SCH ×4 (07:08→20:39)
[2023-08-12] MEDS: [UNRECOGNIZED DRUG - OTHER] PO SCH ×2 (07:56→22:02)
[2023-08-12] MEDS: CEROVITE ADV FORMULA TAB PO SCH (07:57)
[2023-08-12] MEDS: ADVANCED PROBIOTIC 1250 MG CAPSULE PO SCH (07:57)
[2023-08-12] MEDS: FERROUS SULFATE 325 MG TAB PO SCH (07:58)
[2023-08-12] MEDS: FLUTICASONE PROPIONATE NA SPR 16 GM BTL SCH (07:59)
[2023-08-12] MEDS: FLUTICASONE/VILANTEROL 200/25MCG 14 PUFFS/INHALER INH SCH (07:59)
[2023-08-12] MEDS: ENOXAPARIN INJ 40 MG/0.4 ML SYR SQ SCH (07:59)
[2023-08-12] MEDS: POLYETHYLENE (MIRALAX) 17 GM PACK PO SCH (08:04)
[2023-08-12] MEDS ORDERED: AZITHROMYCIN 250 MG TAB PO SCH (09:00)
[2023-08-12] MEDS ORDERED: predniSONE 20 MG TAB PO SCH (09:00)
[2023-08-12] MEDS ORDERED: ETHAMBUTOL HCL 400 MG TAB PO SCH (09:00)
[2023-08-12] MEDS ORDERED: rifAMPin 300 MG CAPSULE PO SCH (09:00)
--- NOTE | 2023-08-12 10:40 | Pulmonology Progress Note ---
Date of Service August 12, 2023 Assessment & Plan (1) LULI (mycobacterium avium-intracellulare): (2) Bronchiectasis: (3) Abnormal chest CT: (4) Multifocal pneumonia: (5) CLL (chronic lymphocytic leukemia): Plan 78-year-old male with history of MAC infection, pseudomonal colonization and CLL who presented to the hospital due to ongoing fatigue and shortness of breath. He had a bronchoscopy December 2021 which resulted in evidence of MAC infection Pseudomonas colonization. He has been on treatment for MAC since that time and follows with Corrine [facility]. Does not appear that he has had follow-up sputum cultures to show clearance of his MAC infection. Follow-up AFB sputum cultures from this admission. This result may take 6 weeks to finalize. May need his regimen for MAC augmented given the persistence of opacities noted on his CT chest. Other possibilities include pneumonitis related to CLL therapy. He does have a history of conization with Pseudomonas. Continue Zosyn to cover for pseudomonal infection. Continue airway clearance therapy with percussive vest therapy 4 times daily and hypertonic saline twice daily. Mixed connective tissue disorder work-up pending to evaluate for ILD related to mixed connective tissue disorder. CRP ordered elevated 8.7. ESR substantially elevated as well to 94. PFT from 11/28/2021 notable for mild airflow obstruction with an FEV1 of 78%. DLCO was severely reduced at 43%. Patient is a lifelong non-smoker. Thanks for the consult. We will continue to follow along with you. Please call with questions. Admission and Anticipated Discharge Date Admission Date: August 10, 2023 Subjective Patient seen examined. He is now saturating in the low 90s on room air. He is off of supplemental oxygen. He has been able to walk around his room. His appetite is improved slightly. He denies any fevers, chills or night sweats. Review of Systems Review of Systems: All systems reviewed & are unremarkable except as noted in HPI & below Physical Exam Physical Exam: Constitutional: Patient appears to be of their stated age. Patient is in no apparent distress. Patient is well-developed. Eyes: Pupils are equal round and reactive to light. Conjunctivae are normal. Anicteric sclera. Ears nose, mouth and throat: Deferred. Neck: Trachea is midline. Visual inspection is normal. Respiratory: Lower lobe crackles noted. No increased work of breathing. Cardiovascular: Regular rate and rhythm. No murmurs. No edema. Gastrointestinal: Normal bowel sounds, soft, nontender and nondistended. No hepatosplenomegaly noted. Musculoskeletal: No cyanosis. Patient is able to move all extremities. Strength is 5 out of 5 in the upper and lower extremities. Skin: No rashes, warm dry and intact. Neurologic: No obvious focal neurological deficits seen. Psychiatric: Alert and oriented x3 with a euthymic affect. Results & Data Results & Data Vital Signs (Past 12 Hours) Vital Signs Temp Pulse Pulse Resp BP Pulse Ox O2 Del Method 08/12/23 08:13 36.6 C 81 18 158/68 H 92 Room Air 08/12/23 07:08 71 16 92 Room Air 08/12/23 05:57 69 08/12/23 03:01 Nasal Cannula 08/12/23 02:37 37.1 C 76 18 135/76 92 Room Air 08/11/23 23:25 37.0 C 74 18 136/66 94 Nasal Cannula O2 Flow Rate 08/12/23 08:13 08/12/23 07:08 08/12/23 05:57 08/12/23 03:01 2 08/12/23 02:37 08/11/23 23:25 2 PG Care Time/CCT Total # of Minutes Spent Total Time Spent with Patient: Total time spent is greater than 50% in coordination of care (as documented) at patient's floor/unit and/or counseling patient: Coding Level of Care Code 53090 SUB INP/OBS CARE 2/35MIN Diagnoses LULI (mycobacterium avium-intracellulare) A31.0 Bronchiectasis J47.[address] R93.89 Multifocal pneumonia J18.9 CLL (chronic lymphocytic leukemia) C91.10
--- NOTE | 2023-08-12 11:38 | Hospitalist Progress Note ---
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 improving AFB x 3 ordered ID consulted: recommendations pending Zosyn IV Day 2 Nebs wean off o2 chest percussion therapy Pulm consulted Echo: borderline LVH LV wall motion is normal EF 65-70% Gr 1 Diastolic Dysfunction Situational hypertension improving hx MAIC ongoing triple antibiotic regimen under the direction [place] [facility] [place] - ID consulted 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 Lovenox subcu Full code plan of care discussed with patient in detail and at length all questions answered he is understanding, agreeable, comfortable with the plan of care Admission and Anticipated Discharge Date Admission Date: August 10, 2023 Subjective ff up for acute hypoxic respiratory failure etc seen resting in bed, comfortable off o2 supplement states he feels improved overall today less cough able to expectorate more phlegm no chest pain ambulating in the halls no other symptoms Review of Systems Review of Systems: all noted and negative except for above Physical Exam Physical Exam: General- oriented x 3, not in distress, speaks in sentences with no effort or accessory muscle use Eyes- anicteric Neck- no JVD Lungs- clear breath sounds bilaterally, no rales/wheezes Heart- normal rate, regular rhythm; no murmurs Abdomen- normal bowel sounds, nondistended, soft, nontender Extremities- no pretibial edema, no calf tenderness Neuro- alert, oriented x 3; no gross focal neurologic deficits Skin- warm & dry Results & Data Results & Data Vital Signs (Past 12 Hours) Vital Signs Temp Pulse Pulse Resp BP Pulse Ox O2 Del Method 08/12/23 11:01 72 18 92 Room Air 08/12/23 08:13 36.6 C 81 18 158/68 H 92 Room Air 08/12/23 07:08 71 16 92 Room Air 08/12/23 05:57 69 08/12/23 03:01 Nasal Cannula 08/12/23 02:37 37.1 C 76 18 135/76 92 Room Air O2 Flow Rate 08/12/23 11:01 08/12/23 08:13 08/12/23 07:08 08/12/23 05:57 08/12/23 03:01 2 08/12/23 02:37 all noted and reviewed including below
--- NOTE | 2023-08-12 19:09 | Infectious Disease Consult ---
Date of Service August 12, 2023 Telehealth Information I performed this visit using a real-time telehealth connection between my location and the patients location ([facility]). After connecting through interactive tele-video, patient was identified by name and date of and/or wristband check.Patient (or authorized healthcare physician relations representative) was informed that this was a telemedicine visit and it was being conducted confidentially over secure lines. My office door was closed and no one else was present in the room with me.Patient (or authorized healthcare physician relations representative) provided consent to proceed with the visit, expressed an understanding of privacy and security of the telemedicine visit, and gave permission to have a hospital physician relations representative in the room in order to assist with the visit and to conduct portions of the visit, as needed. I informed the patient (or authorized healthcare physician relations representative) that I reviewed their record and presented the opportunity for them to ask any questions regarding the visit today. The patient agreed to participate. Assessment & Plan (1) Acute hypoxemic respiratory failure: Plan: - The etiology for the acute respiratory failure is still unclear but the patient promptly improved with neb and steroid treatment. Perhaps, the patient has noninfectious COPD/asthma exacerbation? If still concerned about acute infection, consider checking the sputum for routine bacterial culture and pneumococal urine antigen just in case. I am not sure what to make of one episode of fever when the patient has already clinically improved, wishing to go home. 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 The patient is scheduled to have a f/u w/ Dr. Polo w/in a month - I doubt the patient is suffering from worsening LULI infection. There is no obvious CT findings to suggest that and his respiratory AFB have been negative on multiple occasions: 12/2021 and 06/2023. What is interesting is that the BAL AFB specimen from 12/2021 was negative when his LULI treatment was started in 02/2022. Did he have LULI infection? The guideline recommends having at least 2 sputum AFB positive or 1 BAL AFB positive to make the diagnosis of pulmonary MAC. History of Present Illness History of Present Illness This is a 78 y/o male ([place]) w/ hx of CLL (dx 06/2020) on acalabrutinib, chronic IgG deficiency, COPD/asthma, pulmonary TB (treated in 1960s), recurrent pneumonia, CKD III and MAIC oantibiotic Rx (02/2022: on azithromycin, rifampin, and ethambutol since 02/2022, followed by Dr. Polo, [place] [facility] [place] He was admitted to [facility] on 08/10/23 for aucte hypoxemic respiratory failure, requiring O2 supplement (at baseline he does not require O2 supplement), complaining of worseneing cough productive w/ clear sputum. He promptly improved w/ O2 supplement, nebulization treatment, or steroid treatment. No abx given other than his treatement for LULI infection. No fever on admission but mild leukocytosis. One episode of fever was noted today. ID was called for possible desease progression of MAC. The patient is currently resting comfortably in bed, breathing on RA. He states that he has been coughing more w/ intermittent low-grade fever, requiring hospitalization at [facility]. He clinically improved and was discharged to home recently. But again he developed similar symptoms in 07/2023. The patient is concerned about [place]: I am short of breath after walking a mile. I used to be able to do 50 push-ups w/in a minute with no problem. Allergies Allergy/AdvReac Type Severity Reaction Status Date / Time rofecoxib Allergy Intermediate RASH,SWELLING, Verified 01/04/23 16:56 UNSTEADY GAIT/STUMBLING lamotrigine [From Lamictal] AdvReac Mild cannot Unverified 01/04/23 16:56 think straight, stumbling and falling. meperidine AdvReac Mild Vomiting Unverified 01/04/23 16:56 Home Medications Medication Instructions Recorded Confirmed Type ferrous sulfate 325 mg (65 mg 325 mg PO QAM 07/11/21 08/10/23 History iron) tablet (Feosol) Flutter Valve #1 ea 11/29/21 08/10/23 Rx acalabrutinib 100 mg capsule 400 mg PO Q12H 06/06/22 08/10/23 History ([place]) ethambutol 400 mg tablet 1,600 mg PO 3XWK 06/06/22 08/10/23 History omega-3 fatty acids 1,000 mg 1,000 mg PO DAILY 06/06/22 08/10/23 History capsule Vinegar Tea See Rx Instructions .Route .COMPLEX 01/04/23 08/10/23 History azithromycin 500 mg tablet 500 mg PO .MWF 01/04/23 08/10/23 History fluticasone furoate 200 1 inh inhalation QAM #60 ea 01/11/23 08/10/23 Rx mcg-vilanterol 25 mcg/dose inhalation powder (Breo Ellipta) Privigen 40 g IV .EVERY 28 DAYS 06/27/23 08/10/23 History coenzyme Q10 100 mg capsule (Co 100 mg PO DAILY 06/27/23 08/10/23 History Q-10) diphenhydramine 25 1 tab PO HS PRN Sleep 06/27/23 08/10/23 History mg-acetaminophen 500 mg tablet (Tylenol PM Extra Strength) fluticasone propionate 50 1 spray intranasal DAILY 06/27/23 08/10/23 History mcg/actuation nasal spray,suspension (Allergy Relief (fluticasone)) guar gum 1 packet PO DAILY 06/27/23 08/10/23 History multivitamin with minerals 1 tab PO DAILY 06/27/23 08/10/23 History (Multiple Vitamin-Minerals tablet) rifampin 300 mg capsule 600 mg PO .MON,WED,FRI 06/27/23 08/10/23 History zinc acetate 50 mg (zinc) capsule 50 mg PO QAM 06/27/23 08/10/23 History Probiotic Acidophilus Biobeads 2 cap PO DAILY 08/10/23 08/10/23 History Vitamin C 500 mg PO DAILY 08/10/23 08/10/23 History fluticasone furoate 200 1 inh inhalation DAILY 08/10/23 08/10/23 History mcg-vilanterol 25 mcg/dose inhalation powder (Breo Ellipta) guaifenesin 600 mg tablet, 600 mg PO Q12H 08/10/23 08/10/23 History extended release 12 hr (Mucinex) levalbuterol HCl 1.25 mg/3 mL 1.25 mg inhalation Q4H 08/10/23 08/10/23 History solution for nebulization Patient History Medical History Epilepsy Tuberculosis Asthma BPH (benign prostatic hyperplasia) UTI (urinary tract infection) Surgical History History of tonsillectomy and adenoidectomy H/O vasectomy [place] teeth removed S/P TURP 2019 History of bronchoscopy Social History Smoking Status: Never smoker Second Hand Exposure: No; Do You Dip or Chew Tobacco: No; Hx Alcohol Use: No Hx Substance Use: No Preferred Language: Polish Communication Ability: Effective Mr Teacher Required: No Beliefs That Will Affect Care: Anglican Current Living Situation: Spouse Other Information That Helps Us Care for You: No Feels Safe at Home: Yes Safety Concerns: Feels Safe At This Time Assistive Devices: None Review of Systems as above and all others negative Physical Exam Gen: no acute distress Lungs: breathing comfortably on RA Neuro: alert, awake, oriented x3 Results & Data Vital Signs (Past 12 Hours) Vital Signs Temp Pulse Pulse Resp BP Pulse Ox O2 Del Method 08/12/23 16:01 37.8 C H 72 18 143/72 H 90 Room Air 08/12/23 14:08 72 08/12/23 14:06 79 16 93 Room Air 08/12/23 12:14 Room Air 08/12/23 11:41 36.9 C 75 18 130/70 92 Room Air 08/12/23 11:01 72 18 92 Room Air 08/12/23 08:13 36.6 C 81 18 158/68 H 92 Room Air 08/12/23 07:08 71 16 92 Room Air Laboratory Results WBC 11.71K -> 13.24K H 10.4 Plt 204K Cr 0.96K AFB sputum (11/16/21): Mycobactrium intracellulare BAL (01/01/22): AFB neg AFB sputum (06/2023): AFB neg Blood cx (08/10): NGTD RPPCR (08/10): neg AFB sputum (08/10/23): result pending CT chest (08/10/23): 1. Accounting for limitations with extensive respiratory artifact, there is no evidence for pulmonary embolism. Several distal subsegmental pulmonary artery segments are of nondiagnostic quality. 2. Dependent ground-glass opacities. There is also diffuse interlobular septal thickening involving the lung apices with patchy ground-glass opacities. Favor interstitial and alveolar pulmonary edema over infection. No pleural effusion or pneumothorax. 3. Presumed reactive hilar and pericarinal lymphadenopathy measuring up to 1.6 cm in short axis diameter involving the right hilum.
[2023-08-13] MEDS: PIPERACILLIN/TAZOBACTAM 4.5 GM in DEXTROSE 5% MINI-B 100 ML IV SCH ×3 (02:41→17:34)
[2023-08-13] MEDS: guaiFENesin 600 MG TABCR PO SCH ×2 (05:37→17:35)
[2023-08-13] MEDS: ALBUT/IPRATROP 3MG/0.5MG NEB 3 ML VIAL NEB SCH ×4 (07:19→19:28)
[2023-08-13] MEDS: SODIUM CHLOR 7% 4 ML NEB NEB SCH ×2 (07:19→19:28)
[2023-08-13] MEDS: [UNRECOGNIZED DRUG - OTHER] PO SCH ×2 (08:41→20:46)
[2023-08-13] MEDS: ADVANCED PROBIOTIC 1250 MG CAPSULE PO SCH (08:41)
[2023-08-13] MEDS: CEROVITE ADV FORMULA TAB PO SCH (08:42)
[2023-08-13] MEDS: FERROUS SULFATE 325 MG TAB PO SCH (08:42)
[2023-08-13] MEDS: ENOXAPARIN INJ 40 MG/0.4 ML SYR SQ SCH (08:42)
[2023-08-13] MEDS: FLUTICASONE/VILANTEROL 200/25MCG 14 PUFFS/INHALER INH SCH (08:42)
[2023-08-13] MEDS: FLUTICASONE PROPIONATE NA SPR 16 GM BTL SCH (08:42)
[2023-08-13] MEDS: POLYETHYLENE (MIRALAX) 17 GM PACK PO SCH (08:43)
--- NOTE | 2023-08-13 15:36 | Hospitalist Progress Note ---
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 AFB x 3 ordered: results pending ID consulted: Does not feel current presentation secondary to progression of back recommend continue current therapy for MAC including rifampin, ethambutol, azithromycin Follow-up with [facility] Gradually improving Weaned off O2 Zosyn IV Day 3 Nebs including DuoNeb, hypertonic saline Continue usual Breo Ellipta, Flonase chest percussion therapy Pulm consulted Anticipate discharge in 1 to 2 days Echo: borderline LVH LV wall motion is normal EF 65-70% Gr 1 Diastolic Dysfunction Situational hypertension improving hx MAIC ongoing triple antibiotic regimen under the direction of [facility] [place] specialist - ID consulted Recommendations per above 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 Lovenox subcu Full code plan of care discussed with patient in detail and at length all questions answered he is understanding, agreeable, comfortable with the plan of care Admission and Anticipated Discharge Date Admission Date: August 10, 2023 Subjective Follow-up for acute hypoxia, pneumonia, chronic MAC infection, etc. Seen resting in bed, not in distress, on room air States breathing is improving but still not great Still having some intermittent cough Has nasal congestion No fevers or chills No other new symptom Review of Systems Review of Systems: all noted and negative except for above Physical Exam Physical Exam: General- oriented x 3, not in distress, speaks in sentences with no effort or accessory muscle use Eyes- anicteric Neck- no JVD Lungs-mild crackles at the bases with intermittent rhonchi Heart- normal rate, regular rhythm; no murmurs Abdomen- normal bowel sounds, nondistended, soft, nontender Extremities- no pretibial edema, no calf tenderness Neuro- alert, oriented x 3; no gross focal neurologic deficits Skin- warm & dry Results & Data Results & Data Vital Signs (Past 12 Hours) Vital Signs Temp Pulse Pulse Resp BP Pulse Ox O2 Del Method 08/13/23 15:21 36.7 C 78 17 116/55 L 90 Room Air 08/13/23 14:40 74 18 94 Room Air 08/13/23 11:11 36.5 C 69 18 117/63 90 Room Air 08/13/23 10:51 16 Room Air 08/13/23 10:05 Room Air 08/13/23 07:51 36.6 C 77 17 130/66 90 Room Air 08/13/23 07:20 89 18 93 Room Air 08/13/23 05:58 68 08/13/23 04:05 37.4 C 70 20 130/73 92 Room Air all noted and reviewed including below
[2023-08-14] MEDS: PIPERACILLIN/TAZOBACTAM 4.5 GM in DEXTROSE 5% MINI-B 100 ML IV SCH ×3 (03:35→17:43)
[2023-08-14] MEDS: guaiFENesin 600 MG TABCR PO SCH ×2 (06:38→17:42)
[2023-08-14] MEDS: ALBUT/IPRATROP 3MG/0.5MG NEB 3 ML VIAL NEB SCH ×4 (07:04→19:57)
[2023-08-14] MEDS: SODIUM CHLOR 7% 4 ML NEB NEB SCH ×2 (07:04→19:58)
[2023-08-14] MEDS: ENOXAPARIN INJ 40 MG/0.4 ML SYR SQ SCH (07:37)
[2023-08-14] MEDS: POLYETHYLENE (MIRALAX) 17 GM PACK PO SCH (07:37)
[2023-08-14] MEDS: FLUTICASONE/VILANTEROL 200/25MCG 14 PUFFS/INHALER INH SCH (08:24)
[2023-08-14] MEDS: FLUTICASONE PROPIONATE NA SPR 16 GM BTL SCH (08:25)
[2023-08-14] MEDS: [UNRECOGNIZED DRUG - OTHER] PO SCH ×2 (08:26→21:05)
[2023-08-14] MEDS: FERROUS SULFATE 325 MG TAB PO SCH (08:27)
[2023-08-14] MEDS: ADVANCED PROBIOTIC 1250 MG CAPSULE PO SCH (08:27)
[2023-08-14] MEDS: CEROVITE ADV FORMULA TAB PO SCH (08:27)
--- NOTE | 2023-08-14 10:23 | Pulmonology Progress Note ---
Date of Service August 14, 2023 Assessment & Plan (1) LULI (mycobacterium avium-intracellulare): (2) Bronchiectasis: (3) Abnormal chest CT: (4) Multifocal pneumonia: (5) CLL (chronic lymphocytic leukemia): Plan 78-year-old male with history of MAC infection, pseudomonal colonization and CLL who presented to the hospital due to ongoing fatigue and shortness of breath. MAC therapy was discontinued by ID as he only had 1 sputum culture that was positive for MAC in 2021 which was nondiagnostic of MAC infection. He would need 2 samples of AFB sputum cultures or 1 BAL sample to suggest MAC infection. 3 AFB sputum samples obtained this admission and are pending. Thus far the smears have been negative for AFB organisms. May take 6 weeks to finalize. Repeat chest x-ray today demonstrates left upper lobe pleural-parenchymal scarr ing. Otherwise chest appears relatively clear. He is on room air. I think it is safe for the patient to be discharged home at this point with pulmonary follow-up as an outpatient Continue airway clearance therapy with percussive vest therapy 4 times daily and hypertonic saline twice daily while inpatient. Mixed connective tissue disorder work-up pending to evaluate for ILD related to mixed connective tissue disorder. CRP ordered elevated 8.7. ESR substantially elevated as well to 94. CT chest did demonstrate persistent groundglass opaci ties although there was significant motion and streak artifact. Recommend outpatient HRCT in 8 to 10 weeks for follow-up along with PFTs. If he has persistent findings concerning for ILD, may need VATS lung biopsy versus cryo bronchoscopic lung biopsy biopsy as an outpatient. Would defer to primary film recordist. PFT from 11/28/2021 notable for mild airflow obstruction with an FEV1 of 78%. DLCO was severely reduced at 43%. Patient is a lifelong non-smoker. No further recommendations at this time. Pulmonary to sign off. Thank you for the consult. Please call with questions. Admission and Anticipated Discharge Date Admission Date: August 10, 2023 Subjective Patient seen and examined. He is on room air and complains of an occasional dry cough. Denies any fevers, chills or night sweats. He is ambulating around the room. MAC therapy was discontinued by ID yesterday. Review of Systems Review of Systems: All systems reviewed & are unremarkable except as noted in HPI & below Physical Exam Physical Exam: Constitutional: Patient appears to be of their stated age. Patient is in no apparent distress. Patient is well-developed. Eyes: Pupils are equal round and reactive to light. Conjunctivae are normal. Anicteric sclera. Ears nose, mouth and throat: Deferred. Neck: Trachea is midline. Visual inspection is normal. Respiratory: Lower lobe crackles noted. No increased work of breathing. Cardiovascular: Regular rate and rhythm. No murmurs. No edema. Gastrointestinal: Normal bowel sounds, soft, nontender and nondistended. No hepatosplenomegaly noted. Musculoskeletal: No cyanosis. Patient is able to move all extremities. Strength is 5 out of 5 in the upper and lower extremities. Skin: No rashes, warm dry and intact. Neurologic: No obvious focal neurological deficits seen. Psychiatric: Alert and oriented x3 with a euthymic affect. Results & Data Results & Data Vital Signs (Past 12 Hours) Vital Signs Temp Pulse Pulse Resp BP Pulse Ox O2 Del Method 08/14/23 07:32 36.6 C 76 18 122/68 97 Other 08/14/23 07:15 Room Air 08/14/23 07:06 75 18 93 Room Air 08/14/23 06:00 66 08/14/23 03:13 36.6 C 75 18 123/72 91 Room Air 08/14/23 00:00 37.1 C 08/13/23 23:30 38.1 C H 71 18 120/75 92 Room Air 08/13/23 22:37 70 O2 Flow Rate 08/14/23 07:32 10 08/14/23 07:15 08/14/23 07:06 08/14/23 06:00 08/14/23 03:13 08/14/23 00:00 08/13/23 23:30 08/13/23 22:37 PG Care Time/CCT Total # of Minutes Spent Total Time Spent with Patient: Total time spent is greater than 50% in coordination of care (as documented) at patient's floor/unit and/or counseling patient: Coding Level of Care Code 88350 SUB INP/OBS CARE 2/35MIN Diagnoses LULI (mycobacterium avium-intracellulare) A31.0 Bronchiectasis J47.[address] R93.89 Multifocal pneumonia J18.9 CLL (chronic lymphocytic leukemia) C91.10
--- NOTE | 2023-08-14 11:19 | XRay Report ---
XR chest 1V portable HISTORY: hypoxia COMPARISON: Chest CT 08/11/2023. FINDINGS: Mild diffuse interstitial thickening. Left apical airspace opacities are again noted. Addit ional patchy groundglass airspace opacities are better appreciated on the prior chest CT. The heart i s normal in size. Diffuse interstitial thickening persists. No pneumothorax. No pleural effusions. IMPRESSION: No significant change in the patchy bilateral airspace opacities most pronounced within the left lung apex. ACT 112: Negative or not required by law. Electronically signed by: Gian Dahl M.D. 08/14/2023 11:17 AM
--- NOTE | 2023-08-14 14:47 | Hospitalist Progress Note ---
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 Nebs including DuoNeb, hypertonic saline Continue usual Breo Ellipta, Flonase chest percussion therapy Chest x-ray from August 14 personally reviewed; no change in patchy airspace opacities within the left lung apex As per pulmonology, mixed currently tissue disorder work-up pending to evaluate for ILD related with mixed connective tissue disorder. CRP and ESR elevated. Recommend outpatient HRCT 8 to 10 weeks for follow-up along with PFTs If he has persistent finding concerning for ILD, may need VATS lung biopsy versus cryobronchoscopic lung biopsy as outpatient Echo: borderline LVH LV wall motion is normal EF 65-70% Gr 1 Diastolic Dysfunction Situational hypertension improving hx MAIC ongoing triple antibiotic regimen under the direction of [facility] ID specialist - ID consulted; recommended to stop antibiotics. past history of pulmonary TB status post Rx seizure disorder as per records, stable off maintenance medications Hyperglycemia rule out DM a1c 6.6; diet controlled for now. acute on chronic anemia, minimal hemoglobin drop from baseline, patient denies overt bleeding symptoms Fe level 28 Continue ferrous sulfate DVT prophylaxis. Lovenox subcu Full code Time spent evaluating patient, direct bedside care, chart review, placing orders, interpretation of diagnostic studies, discussion with consultants, patient, and family members, as well as other required patient management activities is 60 minutes Please note the above document was generated using voice recognition software. It may contain grammatical, syntax or spelling errors. Any formal questions or concerns about the content, text or information contained within the body of this dictation should be directly addressed to the provider for clarification Admission and Anticipated Discharge Date Admission Date: August 10, 2023 Subjective Patient seen and examined at bedside. He is lying in the bed comfortably; not in distress. He reports that he is feeling much better. Saturating well on room air. Review of Systems Review of Systems: All systems reviewed & are unremarkable except as noted in Subjective Physical Exam Physical Exam: General- oriented x 3, not in distress, speaks in sentences with no effort or accessory muscle use Eyes- anicteric Neck- no JVD Lungs-mild crackles at the bases with intermittent rhonchi Heart- normal rate, regular rhythm; no murmurs Abdomen- normal bowel sounds, nondistended, soft, nontender Extremities- no pretibial edema, no calf tenderness Neuro- alert, oriented x 3; no gross focal neurologic deficits Skin- warm & dry Results & Data Results & Data Vital Signs (Past 12 Hours) Vital Signs Temp Pulse Pulse Resp BP Pulse Ox O2 Del Method 08/14/23 11:52 36.8 C 76 18 138/71 93 Room Air 08/14/23 11:23 76 22 95 Room Air 08/14/23 07:32 36.6 C 76 18 122/68 97 Other 08/14/23 07:15 Room Air 08/14/23 07:06 75 18 93 Room Air 08/14/23 06:00 66 08/14/23 03:13 36.6 C 75 18 123/72 91 Room Air O2 Flow Rate 08/14/23 11:52 08/14/23 11:23 08/14/23 07:32 10 08/14/23 07:15 08/14/23 07:06 08/14/23 06:00 08/14/23 03:13 Laboratory Results Laboratory Results WBC 13.24 K/ul (4.8-10.8) H 08/11/23 04:46 RBC 3.16 M/uL (4.70-6.10) L 08/11/23 04:46 Hgb 10.4 g/dl (14.0-18.0) L 08/11/23 04:46 Hct 30.8 % (42.0-52.0) L 08/11/23 04:46 MCV 97.5 fL (80.0-100.0) 08/11/23 04:46 MCH 32.9 pg (25.0-34.0) 08/11/23 04:46 MCHC 33.8 g/dL (32.0-36.0) 08/11/23 04:46 RDW Std Deviation 49.0 fL (36.4-46.3) H 08/11/23 04:46 RDW Coeff of [place] 13.7 % (11.5-14.5) 08/11/23 04:46 Plt Count 204 K/uL (130-400) 08/11/23 04:46 MPV 10.7 fL (9.4-12.4) 08/11/23 04:46 Immature Gran % (Auto) 1.5 % 08/11/23 04:46 Neut % (Auto) 26.4 % 08/11/23 04:46 Lymph % (Auto) 65.0 % 08/11/23 04:46 [place] % (Auto) 6.0 % 08/11/23 04:46 Eos % (Auto) 0.9 % 08/11/23 04:46 Baso % (Auto) 0.2 % 08/11/23 04:46 Neut # (Auto) 3.49 K/uL (1.40-6.50) 08/11/23 04:46 Lymph # (Auto) 8.60 K/uL (1.20-3.40) H 08/11/23 04:46 [place] # (Auto) 0.80 K/uL (0.11-0.59) H 08/11/23 04:46 Eos # (Auto) 0.12 K/uL (0.00-0.50) 08/11/23 04:46 Baso # (Auto) 0.03 K/uL (0.00-0.20) 08/11/23 04:46 Immature Gran # (Auto) 0.20 K/uL (0.01-0.20) 08/11/23 04:46 Smudge Cells Present 08/11/23 04:46 Polychromasia 1+ 08/11/23 04:46 ESR 94 mm/hr (0-20) H 08/11/23 10:45 PT 11.3 Seconds (9.0-12.0) 08/10/23 20:38 INR 1.0 (0.9-1.1) 08/10/23 20:38 APTT 31.9 Seconds (21.0-31.0) H 08/10/23 20:38 PTT Ratio 1.1 08/10/23 20:38 ABG pH 7.46 (7.35-7.45) H 08/11/23 04:54 ABG pCO2 32 mmHg (35-46) L 08/11/23 04:54 ABG pO2 91 mmHg (80-95) 08/11/23 04:54 ABG HCO3 23 mmol/L (19-24) 08/11/23 04:54 ABG O2 Saturation 97.9 % (90-95) H 08/11/23 04:54 ABG Base Excess -0.3 mEq/L (-9-1.8) 08/11/23 04:54 Twin Test Pos (Pos) 08/11/23 04:54 Oxygen Given 2L 08/11/23 04:54 Sodium 136 mmol/L (136-145) 08/11/23 04:46 Potassium 4.1 mmol/L (3.5-5.1) 08/11/23 04:46 Chloride 106 mmol/L (98-107) 08/11/23 04:46 Carbon Dioxide 24 mmol/L (21-32) 08/11/23 04:46 Anion Gap 6 (3-11) 08/11/23 04:46 BUN 25 mg/dl (6-23) H 08/11/23 04:46 Creatinine 0.96 mg/dl (0.6-1.4) 08/11/23 04:46 Est Cr Clr Drug Dosing 57.2 ml/min 08/11/23 04:46 Est GFR ( Amer) 87.4 ml/min 08/11/23 04:46 Est GFR (Non-Af Amer) 75.4 ml/min 08/11/23 04:46 BUN/Creatinine Ratio 26.0 (10-20) H 08/11/23 04:46 Glucose 108 mg/dl (70-99(Fasting)) H 08/11/23 04:46 Estimat Average Glucose 143 mg/dl 08/10/23 20:38 Hemoglobin A1c 6.6 % (4.5-5.6) H 08/10/23 20:38 Lactate 0.6 mmol/L (0.4-2.0) 08/10/23 21:56 Calcium 9.3 mg/dl (8.6-10.3) 08/11/23 04:46 Magnesium 1.9 mg/dl (1.7-2.4) 08/10/23 20:38 Iron 28 mcg/dl (35-175) L 08/12/23 11:56 Total Bilirubin 0.3 mg/dl (0.2-1.0) 08/10/23 20:38 AST 15 U/L (13-39) 08/10/23 20:38 ALT 10 U/L (7-52) 08/10/23 20:38 Alkaline Phosphatase 55 U/L (34-104) 08/10/23 20:38 Troponin I High Sens 7.5 pg/ml (0-20) 08/10/23 20:38 C-Reactive Protein 8.87 mg/dl (0-0.5) H 08/11/23 10:45 B-Natriuretic Peptide 56 pg/ml (0-100) 08/11/23 04:46 Total Protein 6.8 gm/dl (6.0-8.3) 08/10/23 20:38 Albumin 3.6 gm/dl (3.4-5.0) 08/10/23 20:38 Globulin 3.2 gm/dl (2.5-4.0) 08/10/23 20:38 Albumin/Globulin Ratio 1.1 (0.9-2) 08/10/23 20:38 Procalcitonin 0.30 ng/ml (0-0.5) 08/10/23 20:38 Nasal Screen MRSA (PCR) Negative (Negative) 08/11/23 13:46 Adenovirus (PCR) Not Detected (NotDetected) 08/10/23 21:24 B. pertussis DNA (PCR) Not Detected (NotDetected) 08/10/23 21:24 B.parapertussis DNA PCR Not Detected (NotDetected) 08/10/23 21:24 C. pneumoniae DNA (PCR) Not Detected (NotDetected) 08/10/23 21:24 Coronavirus OC43 (PCR) Not Detected (NotDetected) 08/10/23 21:24 Coronavirus HKU1 (PCR) Not Detected (NotDetected) 08/10/23 21:24 Coronavirus 229E (PCR) Not Detected (NotDetected) 08/10/23 21:24 SARS-CoV-2 (PCR) Not Detected (NotDetected) 08/10/23 21:24 Coronavirus NL63 (PCR) Not Detected (NotDetected) 08/10/23 21:24 Human Metapneumovir PCR Not Detected (NotDetected) 08/10/23 21:24 Influenza Type A (PCR) Not Detected (NotDetected) 08/10/23 21:24 Influenza Type B (PCR) Not Detected (NotDetected) 08/10/23 21:24 M. pneumoniae (PCR) Not Detected (NotDetected) 08/10/23 21:24 Parainfluenza 1 (PCR) Not Detected (NotDetected) 08/10/23 21:24 Parainfluenza 2 (PCR) Not Detected (NotDetected) 08/10/23 21:24 Parainfluenza 3 (PCR) Not Detected (NotDetected) 08/10/23 21:24 Parainfluenza 4 (PCR) Not Detected (NotDetected) 08/10/23 21:24 RSV (PCR) Not Detected (NotDetected) 08/10/23 21:24 Entero/Rhino (PCR) Not Detected (NotDetected) 08/10/23 21:24 Impressions Chest CTA 08/10/23 23:02 Exam(s): CTA CHEST EXAM: CT Angiography Chest With Intravenous Contrast CLINICAL HISTORY: sob. TECHNIQUE: Axial computed tomographic angiography images of the chest with intravenous contrast. CTDI is 14 mGy and DLP is 508.07 mGy-cm. Automated exposure control was utilized for the study. A dose lowering technique was utilized adhering to the principles of ALARA. MIP reconstructed images were created and reviewed. COMPARISON: CTA chest dated 06/27/2023 FINDINGS: Limitations: There is extensive respiratory artifact, which degrades image quality throughout the examination. Pulmonary arteries: Accounting for limitations with respiratory artifact, there is no evidence for pulmonary embolism. Several distal subsegmental pulmonary artery segments are of nondiagnostic quality. Aorta: No acute findings. No thoracic aortic aneurysm. Lungs: Dependent ground-glass opacities. There is also diffuse interlobular septal thickening involving the lung apices with patchy ground-glass opacities. Pleural space: Unremarkable. No significant effusion. No pneumothorax. Heart: Cardiomegaly. Mild coronary artery calcification. No pericardial effusion. Bones/joints: No acute fracture. No dislocation. Soft tissues: Unremarkable. Lymph nodes: Presumed reactive hilar and pericarinal lymphadenopathy measuring up to 1.6 cm in short axis diameter involving the right hilum. IMPRESSION: 1. Accounting for limitations with extensive respiratory artifact, there is no evidence for pulmonary embolism. Several distal subsegmental pulmonary artery segments are of nondiagnostic quality. 2. Dependent ground-glass opacities. There is also diffuse interlobular septal thickening involving the lung apices with patchy ground-glass opacities. Favor interstitial and alveolar pulmonary edema over infection. No pleural effusion or pneumothorax. 3. Presumed reactive hilar and pericarinal lymphadenopathy measuring up to 1.6 cm in short axis diameter involving the right hilum. Electronically signed by: Shawn Chambers MD 08/11/23 03:44 AM Chest X-Ray 08/14/23 08:59 XR chest 1V portable HISTORY: hypoxia COMPARISON: Chest CT 08/11/2023. FINDINGS: Mild diffuse interstitial thickening. Left apical airspace opacities are again noted. Additional patchy groundglass airspace opacities are better appreciated on the prior chest CT. The heart is normal in size. Diffuse interstitial thickening persists. No pneumothorax. No pleural effusions. IMPRESSION: No significant change in the patchy bilateral airspace opacities most pronounced within the left lung apex. ACT 112: Negative or not required by law. Electronically signed by: Gian Dahl M.D. 08/14/2023 11:17 AM
[2023-08-14] MEDS: DOXYCYCLINE HYCLATE 100 MG CAP PO SCH (21:05)
[2023-08-15] MEDS: PIPERACILLIN/TAZOBACTAM 4.5 GM in DEXTROSE 5% MINI-B 100 ML IV SCH ×2 (01:56→10:12)
[2023-08-15] MEDS: guaiFENesin 600 MG TABCR PO SCH (05:54)
[2023-08-15] MEDS: ALBUT/IPRATROP 3MG/0.5MG NEB 3 ML VIAL NEB SCH ×2 (06:55→11:29)
[2023-08-15] MEDS: SODIUM CHLOR 7% 4 ML NEB NEB SCH (06:55)
[2023-08-15 07:33] LABS: Hematocrit (blood only) 32.6 % (42.0-52.0); Mean Corpuscular Hgb Conc 33.7 g/dL (32.0-36.0); Mean Corpuscular Volume 97.9 fL (80.0-100.0); Mean Platelet Volume 10.8 fL (9.4-12.4); Platelet Count 214 K/uL (130-400); RDW Coefficient of Variation 13.7 % (11.5-14.5); RDW Standard Deviation 49.2 fL (36.4-46.3); Red Blood Count 3.33 M/uL (4.70-6.10); White Blood Count 12.94 K/ul (4.8-10.8)
[2023-08-15 07:56] LABS: BUN Creatinine Ratio 19.1 (10-20); Creatinine Clr Calc Pharmacy 49.9 ml/min; Est GFR (African American) 74.1 ml/min; Potassium 3.8 mmol/L (3.5-5.1)
[2023-08-15 08:28] LABS: Basophils # (auto) 0.03 K/uL (0.00-0.20); Basophils % (auto) 0.2 %; Eosinophils # (auto) 0.15 K/uL (0.00-0.50); Eosinophils % (auto) 1.2 %; Immature Granulocytes # (auto) 0.17 K/uL (0.01-0.20); Immature Granulocytes % (auto) 1.3 %; Lymphocytes # (auto) 9.04 K/uL (1.20-3.40); Lymphocytes % (auto) 69.9 %; Monocytes # (auto) 0.34 K/uL (0.11-0.59); Monocytes % (auto) 2.6 %; Neutrophils # (auto) 3.21 K/uL (1.40-6.50); Neutrophils % (auto) 24.8 %; Polychromasia 1+; Smudge Cells Present
[2023-08-15] MEDS: CEROVITE ADV FORMULA TAB PO SCH (10:10)
[2023-08-15] MEDS: FLUTICASONE PROPIONATE NA SPR 16 GM BTL SCH (10:10)
[2023-08-15] MEDS: FERROUS SULFATE 325 MG TAB PO SCH (10:10)
[2023-08-15] MEDS: POLYETHYLENE (MIRALAX) 17 GM PACK PO SCH (10:10)
[2023-08-15] MEDS: ADVANCED PROBIOTIC 1250 MG CAPSULE PO SCH (10:11)
[2023-08-15] MEDS: ENOXAPARIN INJ 40 MG/0.4 ML SYR SQ SCH (10:11)
[2023-08-15] MEDS: DOXYCYCLINE HYCLATE 100 MG CAP PO SCH (10:11)
[2023-08-15] MEDS: FLUTICASONE/VILANTEROL 200/25MCG 14 PUFFS/INHALER INH SCH (10:11)
[2023-08-15] MEDS: [UNRECOGNIZED DRUG - OTHER] PO SCH (10:12)
--- NOTE | 2023-08-15 14:48 | Discharge Summary ---
Date of Service August 15, 2023 Admission HPI Per Admitting Provider History obtained from patient and records. Medical history significant for hyperlipidemia, bronchial asthma, MAIC ongoing antibiotic Rx, past history of pulmonary TB status post Rx, CLL on Acalabrutinib tx, chronic IgG deficiency, skin cancer as per records, seizure disorder as per records, GERD, BPH, chronic anemia (baseline hemoglobin 11-12). Last confinement 2 months ago for viral pneumonia. Patient discharged on prednisone course. Patient with worsening cough symptoms productive of clear sputum the last week. Not sure about sick contacts. Patient has received COVID-19 and RSV vaccination. Denies aspiration. Increased fatigue. No chest pain, worsening shortness of breath especially on exertion. Denies fluid retention. Denies abdominal pain, black/bloody stools/hematuria. Outpatient chest x-ray and testing recommended by provider. Worsening shortness of breath at home today O2 sats noted to be 80s. Patient directed to ER by outpatient provider for further evaluation. O2 sats of 89 on room air documented at the ER IV Zosyn administered at the ER. 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 Admission Exam Per Admitting Provider GENERAL: Comfortable, slightly anxious, pleasant, no respiratory distress SKIN: Pallor, warm HEENT: Pale palpebral conjunctivae, no ptosis, dry buccal mucosa NECK : Supple, no tenderness CHEST : Decreased breath sounds, occasional expiratory wheezes, no tenderness HEART : RRR, no obvious murmurs ABDOMEN: no distention, nontender EXTREMITIES : No LE swelling/tenderness, no other conspicuous deformities noted NEUROLOGIC : Coherent, no facial asymmetry, no other gross focality Principal Diagnosis (1) Acute hypoxemic respiratory failure: Discharge Exam General- oriented x 3, not in distress, speaks in sentences with no effort or accessory muscle use Eyes- anicteric Neck- no JVD Lungs-bilateral clear breath sounds Heart- normal rate, regular rhythm; no murmurs Abdomen- normal bowel sounds, nondistended, soft, nontender Extremities- no pretibial edema, no calf tenderness Neuro- alert, oriented x 3; no gross focal neurologic deficits Skin- warm & dry Discharge Data Allergies Allergy/AdvReac Type Severity Reaction Status Date / Time rofecoxib Allergy Intermediate RASH,SWELLING, Verified 01/04/23 16:56 UNSTEADY GAIT/STUMBLING lamotrigine [From Lamictal] AdvReac Mild cannot Unverified 01/04/23 16:56 think straight, stumbling and falling. meperidine AdvReac Mild Vomiting Unverified 01/04/23 16:56 Consultations 08/10/23 22:48 ED Decision to Admit Stat 08/11/23 08:29 Consult Pulmonology Routine 08/12/23 15:56 Consult Infectious Diseases Routine Ordered Studies 08/10/23 23:02 CT angio chest PE protocol Stat Hospital Course (1) Acute hypoxemic respiratory failure: likely secondary to Superimposed Pneumonia Chronic MAC infection, Immunocompromised patient, CLL on Acalabrutinib tx/chronic IgG deficiency Patient presented with shortness of breath CTA chest was done which showed dependent groundglass opacities and diffuse interlobular septal thickening involving the lung apices with patchy groundglass opacities. He was started on IV antibiotics for pneumonia, supplemental oxygen and supportive care. Pulmonology was consulted for comanagement. Infectious disease was also consulted given the history of MAC. Recommended to stop antibiotics as patient had completed the course. Oxygen requirements gradually weaned off; patient was saturating well on room air at discharge. He was given 5 more days of oral antibiotics Patient was given instructions to follow-up with pulmonology and PCP. Patient needs to get HRCT chest done in the future. Depending on the results of the HRCT chest; patient will need further evaluation for ILD. SKINNY was sent; results pending. Patient to follow-up with pulmonology and discuss further. Please note the above document was generated using voice recognition software. It may contain grammatical, syntax or spelling errors. Any formal questions or concerns about the content, text or information contained within the body of this dictation should be directly addressed to the provider for clarification Total Time Total Time Spent Total Time Spent (In Minutes): 40 Total Time Includes: Examination of the Patient, Discharge Planning, Medication Reconciliation, Communication With Other Providers and Other Discharge Plan Discharge Items Patient Disposition: Home - Self-Care Reason For Visit: RESP FAILURE Discharge Diagnosis: Multifocal pneumonia Activity: Resume your previous activity Non-emergency contact: Primary Care Provider Call non-emergency contact if: you have any medication questions and your symptoms worsen Follow-up/Referrals: Linda Baeza DO [Primary Care Provider] - (Date & Time 08/21/2023 11:00 AM Provider Linda Baeza DO [facility], [place] ) Diet: Regular Addtl Attending Provider Instructions: You were admitted to the hospital due to pneumonia. You are given IV antibiotics during the hospitalization. You are prescribed following antibiotic for 5 more days to complete the treatment: 1) cefdinir 300 mg twice a day 2) doxycycline 100 mg twice a day The CT scan of the chest during the hospitalization showed groundglass opacities in the lungs. Please follow-up with your primary care doctor and arrange for outpatient HRCT of the chest in 8 weeks along with pulmonary function test. Please follow-up with plant operations manager. You might need further evaluation for interstitial lung disease if the CT chest persistently shows opacities in the bilateral lungs. An appointment will be set up with your primary care doctor for sometime next week. Pending Studies at Discharge: Yes Studies:: SKINNY profile Stand-Alone Forms: My [facility] [place], Smoking Cessation Medications and DC Order Prescriptions: New doxycycline hyclate 100 mg Capsule 100 mg PO BID@0700,1900 5 Days Qty: 10 0RF cefdinir 300 mg capsule 300 mg PO BID 5 Days Qty: 10 0RF Continued ferrous sulfate [Feosol] 325 mg (65 mg iron) tablet 325 mg PO QAM (DME) Flutter Valve Device See Rx Instructions .MEDSUPPLY Qty: 1 0RF Rx Instructions: Use it every 6 hours when awake. Calquence 100 mg capsule 400 mg PO Q12H omega-3 fatty acids 1,000 mg capsule 1,000 mg PO DAILY Breo Ellipta 200-25 mcg/dose blister with device 1 inh inhalation QAM Qty: 60 10RF fluticasone propionate [Allergy Relief (fluticasone)] 50 mcg/actuation spray,suspension 1 spray intranasal DAILY Rx Instructions: administer into each nostril once daily Multiple Vitamin-Minerals Tablet 1 tab PO DAILY zinc acetate 50 mg (zinc) Capsule 50 mg PO QAM guar gum Packet 1 packet PO DAILY Rx Instructions: mix into at least 8 oz of water or juice before administering diphenhydramine-acetaminophen [Tylenol PM Extra Strength] 25-500 mg Tablet 1 tab PO HS PRN (Reason: Sleep) Privigen 40 g IV .EVERY 28 DAYS coenzyme Q10 [Co Q-10] 100 mg Capsule 100 mg PO DAILY Vinegar Tea See Rx Instructions .ROUTE .COMPLEX Rx Instructions: 2 tsp of apple cider vinegar + 1/2 tsp of honey + 12 ounce of water daily guaifenesin [Mucinex] 600 mg Tablet Extended Release 12hr 600 mg PO Q12H Vitamin C 500 mg PO DAILY Probiotic Acidophilus Biobeads 2 cap PO DAILY fluticasone furoate-vilanterol [Breo Ellipta] 200-25 mcg/dose Blister With Device 1 inh INHALATION DAILY Changed levalbuterol HCl 1.25 mg/3 mL Solution For Nebulization 1.25 mg INHALATION Q4H PRN (Reason: shortness of breath) Qty: 72 0RF Discontinued ethambutol 400 mg tablet 1,600 mg PO 3XWK Rx Instructions: take 4 tablets once a day on SATURDAY,SATURDAY AND SATURDAY ONLY azithromycin 500 mg tablet 500 mg PO .MWF rifampin 300 mg capsule 600 mg PO .SAT,SAT,SAT Rx Instructions: TAKE 2 CAPSULES ONCE A DAY ON SATURDAY,SATURDAY AND SATURDAY ONLY Discharge Orders: Discharge Order (Routine); Ordered 08/15/23 Ordered By: Aramis Guevara/Other Patient Handouts: A1C Admission Data Admit Date/Time: 08/10/23 23:06 Attending Provider: Aramis Boudreaux Admit Provider: Osmany Nichols Primary Care Provider: Linda Baeza Other Providers: Osmany Nichols; Fly Rogers Carlos M.; Regla Barragan; Cali Anthony I.; Abdifatah Gonzalez II; Zoë Abernathy; Baldev Daugherty; Ector Polo; Venkatesh Chu; José Miguel Morales Other Interventions: Discharge Summary Assessment (RN) Last Done: 08/15/23 12:08
--- OUTSIDE RECORDS SUMMARY | 2023-08-16 11:32 | External Medical Summary | Summary of Care ---
Author Name Unknown Organization [facility] Address [address] [place] [address] Phone [phone] Care Team Providers Care Manager Supply Name Role Phone Linda Baeza DO Primary Care Provider [phone]- [phone] Reason for Visit * Reason Onset Date Comments Advice 08/08/2023 Appointment 08/08/2023 Needs appt 10/12 Encounter Details Date Type Department Care Team (Late st Contact Info) Description 08/08/2023 Telephone Family Practice [facility] [address] [place] [address] Linda Baeza DO [address] [place] [address] Advice; Appointment (Needs appt 08/12) Allergies Active Allergy Reactions Criticality Noted Date Comments Meperidine Hcl 02/19/2019 Lamotrigine Other (Please comment) Medium 07/19/2021 Causes patient to fall. Rofecoxib 11/06/2004 rash &swelling in legs, stumbling (vioxx) documented as of this encounter (statuses as of 08/09/2023) Medications Medication Sig Dispensed Refills Start Date End Date Status NATURAL SUPPLEMENTIndicati ons:Syncope and collapse vinegar/honey daily 0 0 07/12/2005 Active Probiotic Product (PROBIOTIC ACIDOPHILUS BIOBEADS) Capsule Take 2 Capsules by mouth in the morning. 0 Active Multiple Vitamins-Minerals (MULTIVITAMIN MEN 50+) TABS Take by mouth 1 Tablet daily . 0 Active Ferrous Sulfate (IRON) 325 (65 Fe) MG TABS Take 1 Tablet by mouth in the morning. 0 Active Zinc 50 MG Oral Tablet Take 1 Tablet by mouth in the morning. 0 Active Vitamin C 500 MG Oral Capsule Take by mouth daily. 0 Active [place] 3 1000 MG Oral Capsule Take by mouth daily . 0 Active Tylenol PM Extra Strength 500-25 MG Oral Tablet (diphenhydrAMINE-A PAP (sleep)) Take 1 Tablet by mouth 3 times a day as needed for Sleep. 0 Active Saline 0.65 % Nasal Solution Administer 1 [place] into nostril as needed for Congestion. 0 Active CoQ10 100 MG Oral Capsule Take by mouth . 0 Active Ethambutol HCl 400 MG Oral Tablet (Myambutol) Take by mouth 4 Tablets once a day on Saturday, Saturday, and Saturday only . 144 Tablet 3 07/09/2022 Active Acalabrutinib 100 MG Oral Capsule (Calquence)Indicat ions:CLL (chronic lymphocytic leukemia) (HCC) Take by mouth 100 mg 2 times a day . With or without food 60 Capsule 5 07/09/2022 Active Fluticasone Propionate 50 MCG/ACT Nasal Suspension (Flonase) Administer 1 [place] into each nostril every evening. 0 07/08/2022 Active Benefiber Drink Mix Oral Packet Take 1 Dose by mouth every evening. 0 Active Privigen 40 GM/400ML Intravenous Solution (Immune Globulin Human-IVIG 10%) Administer 40 g intravenously Every Month. Every 28 days 0 Active Fluticasone Furoate-Vilanterol 200-25 MCG/ACT Inhalation Aerosol Powder Breath Activated (BREO ellipta)Indication s:Moderate persistent asthma without complication INHALE 1 INHALATION EVERY MORNING AND RINSE MOUTH AFTER 180 Each 1 10/11/2022 Active NATURAL SUPPLEMENT Take 1 Each by mouth in the morning. 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 0 Active Azithromycin 250 MG Oral Tablet (Zithromax) Take 2 Tablets by mouth once a day on Saturday, Saturday, and Saturday only. 24 Tablet 3 06/10/2023 Active Zinc Acetate 50 MG Oral Capsule Take 50 mg by mouth in the morning. 0 06/27/2023 Active guaiFENesin ER 600 MG Oral Tablet Extended Release 12 Hour Take 1 Tablet by mouth in the morning and 1 Tablet before bedtime. 0 06/30/2023 Active Levalbuterol HCl 1.25 MG/3ML Inhalation Nebulization Solution (Xopenex)Indicatio ns:Viral pneumonia Inhale 1 Ampule via nebulizer every 4 hours as needed for Wheezing. 72 mL 5 07/02/2023 Active Breo Ellipta 200-25 MCG/ACT Inhalation Aerosol Powder Breath ActivatedIndicatio ns:Moderate persistent asthma without complication INHALE ONE PUFF BY MOUTH EVERY DAY 180 Each 2 07/23/2023 Active rifAMPin 300 MG Oral Capsule (Rifadin) Take 2 Capsules by mouth once a day on Saturday, Saturday, and Saturday only. 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 Dehydration 05/01/2022 Basal cell carcinoma (BCC) of left shoulder 10/07 Claustrophobia 08/22/2021 CLL (chronic lymphocytic leukemia) 01/05/2021 Hypogammaglobulinemia 01/05/2021 Asthma, moderate persistent 03/17/2017 BPH without obstruction/lower urinary tract symp toms 07/30/2008 documented as of this encounter (statuses as of 08/09/2023) Resolved Problems Problem Noted Date Diagnosed Date Resolved Date Asthma 09/11/2022 09/11/2022 Stage 3 chronic kidney disease 09/11/2022 09/11/2022 Stage 3 chronic kidney disease 09/11/2022 09/11/2022 CRF (chronic renal failure), stage 3 (moderate) 08/22/2021 04/25/2023 Seizure disorder 12/16/2020 09/11/2022 Asthma, mild persistent 04/30/201303/07 Tuberculosis, treated 07/30/20082021 documented as of this encounter (statuses as of 08/09/2023) Immunizations Name Administration Dates Next Due COVID-19 mRNA, LNP-s, No Pre serve, 2-Dose Series (Pfizer) 06/07/2021,12/14/2020,11/23/2020 COVID-19, LNP-s, No Preserve , William-sucrose, Ages 12+ (Pfizer) 02/08/2022 COVID-19, mRNA, LNP-s, PF, B ooster, 100mcg/0.5mg (Moderna) 02/07/2023,08/02/2021 Covid-19, Mrna, Lnp-s, Pf, B ivalent, 30 Mcg, IM, 12 yrs and above (Pfizer) 08/10/2022 Pneumococcal Conjugate Vacc, 13 Valent (Prevnar) 08/08/2015 Pneumococcal Polysaccharide PPV23 (Pneumovax) 03/20/2013 RSV Vac., Bivalent, Perfusio n F, Pf,0.5 Ml (Abrysvo) 07/29/2023 Seasonal Influenza Virus Vac cine, Unspecified Formulation 05/31/2023,06/12/2022 Seasonal Influenza, Quadriva lent Hd, 65+ Yrs 06/21/2020 Seasonal Influenza, Recombin ant, RIV4, PF, (Flublock) 07/05/2021 Seasonal Influenza, Split, I IV3, With Preserve, Inj 06/12/2022,06/24/2019,06/13/2017,06/20,07/13/2011 Seasonal Influenza, Trivalen t, Adjuvanted, 65+ yrs 06/12/2022 Seasonal Influenza, Trivalen t, High Dose, No Preserve, IM 06/21/2020,06/24/2019,07/07/2018 TD - Tetanus/Diptheria (ADULT) 03/20/2013 TDAP (age 11 and older)(Adacel) 03/10/2018 Zoster Vaccine Recombinant (Shingrix) 06/06/2018 ,04/02/2018 documented as of this encounter Social History Tobacco Use Types Packs/Day Years Used Date Smoking Tobacco: Never Smokeless Tobacco: Never Alcohol Use Standard Drinks/Week Comments Never 0 (1 standard drink = 0.6 oz pur e alcohol) PHQ-2 Answer Date Recorded PHQ Adult Total Score 0 12/13/2022 Hunger Vital Sign Answer Date Recorded Within the past 12 months, y ou worried that your food would run out before you got the money to buy more. Never true 12/14/19 23 Within the past 12 months, t he food you bought just didn't last and you didn't have money to get more. Never true 12/13/2022 Sex and Gender Information Value Date Recorded Sex Assigned at Not on file Gender Identity Not on file Sexual Orientation Not on file Job Start Date Occupation Industry Not on file Not on file Not on file documented as of this encounter Functional Status Functional Status Response Date of Assess ment Are you deaf or do you have serious difficulty h earing? No 09/08/2014 Are you blind or do you have serious difficulty seeing, even when wearing glasses? No 09/08/2014 Do you have serious difficul ty walking or climbing stairs? (5 years old or older) No 09/08/2014 Do you have difficulty dress ing or bathing? (5 years old or older) No 09/08/2014 Because of a physical, menta l, or emotional condition, do you have difficulty doing errands alone such as visiting a doctor s office or shopping? (15 years old or older) No 09/08/20 14 Cognitive Status Response Date of Assessm ent Because of a physical, menta l, or emotional condition, do you have serious difficulty concentrating, remembering, or making decisions? (5 years old or older No 09/08/2014 documented as of this encounter Miscellaneous Notes * Telephone Encounter - Elizabeth Sotelo OSA - 08/09/2023 10:43 AM EDT Pt had video appt today with provider in [place]. Labs and x-ray were ordered. Pt will have done. Provider recommended pt be seen in person on Saturday by provider at [place]. Please assist with scheduling. * Telephone Encounter - Timoteo Jeronimo OSA - 08/09/2023 7:17 AM EDT Patient scheduled. * Telephone Encounter - Timoteo Jeronimo OSA - 08/09/2023 7:12 AM EDT Patient calling in to check on the status of previous message. Patient Called within 48 hour timeframe. Reminded patient of 48 hour turn-around time. * Telephone Encounter - Dedire Nascimento OSA - 08/08/2023 3:53 PM EDT No Appointments Available Patient declined appointments?: No What Visit Type is needed? Acute If Acute Visit Type is needed, were surrounding clinics offered to patient (Yes/No)? No, explain did not want to travel to another location Was patient offered appointments with other available providers (Yes/No)? N/A See Call Details? (Yes or No): Yes documented in this encounter Plan of Treatment Upcoming Encounters Date Type Department Care Team (Late st Contact Info) Description 08/23/2023 11:00 AM EST Telemedicine Infectious Disease [address] [phone] Ector Polo, DO [address] [place] [address] 08/27/2023 9:30 AM EST [facility] [place] [phone] Jonatan Schneider [facility] [address] [facility] [address] 08/28/2023 10:45 AM EST Office Visit Urology [address]ada [address] [place] [address] Paul Ha Jr., MD [address] [place] [address] 08/28/2023 1:00 PM EST Hem/Onc Treatment Hematology/Oncology Treatment, [place] [address] [place], [place] [address] Gemma, Chair 2 Hem Onc [address] [place], [place] [address] 08/30/2023 9:00 AM EST Pharmacy Pharmacy Hematology Oncology [facility] [address] [place] [address] [facility] Hem/Onc [address] [place] [address] 09/25/2023 9:30 AM EST Laboratory Laboratory [place], [place] [address] [place] [phone] [place] [address] [place] [address] 09/26/2023 10:00 AM EST Hem/Onc Treatment Hematology/Oncology Treatment [place] [address] [facility] [address] [place], [place] [address] Gemma, Chair 1 Hem Onc Scenery [address] [facility] [place], [place] [address] 10/23/2023 9:30 AM EST Laboratory Laboratory [place] [address], [place] [address] [place] [phone] Jennie, Lab [place] [address] [place] [address] 10/24/2023 9:15 AM EST Office Visit Hematology/Oncology Scenery [place] [address] [place], [place] [address] Carlos Pierre MD [address] [place], [place] [address] 10/24/2023 9:45 AM EST Hem/Onc Treatment Hematology/Oncology Treatment, [place] [address] [place], [place] [address] 10/31/2023 10:40 AM EST Office Visit Family Practice [place] Jorge [place] [address] [place] [address] Linda Baeza DO [address] [place] [address] 02/06/2024 10:00 AM EDT Nurse Only Ancillary [place] [address], [place] [address] [place] [address] [place], Nurse Annual Wellness Cold [address] [place] [address] Health Maintenance Due Date Last Done Comments COVID-19 Vaccine ( season) 2023 02/07/2023, 08/10/2022, 02/08/2022, Additional history exists Albumin/Creatinine Ratio 10/24/2023 10/24/2022 CKD PHOS USE SMARTSET 88389 10/24/2023 10/24/2022, 0 04/23/2021 Depression Screening 12/14/2023 12/13/2022 GFR 01/30/2024 07/31/2023, 06/08, 06/05/2023, Additional history exists CKD HGB USE SMARTSET 21661 07/31/202407/31, 07/31/2023, 07/03/2023, Additional history exists DTaP,Tdap,and Td Vaccines (2 - Td or Tdap) 03/10/2028 03/10/2018, 03/20/2013 Pneumococcal Vaccine: 65+ Years Completed 08/08/2015, 03/20/2013 Zoster Vaccines Completed 06/06/2018, 04/02/2018 Influenza Vaccine (FLU shot) Completed , 06/12/2022, 06/12/2022, Additional history exists GARDASIL-HPV IMMUNIZATION SERIES Aged Out No longer eligible based on patient's age to complete this topic Hepatitis B Aged Out No longer eligi ble based on patient's age to complete this topic MENINGOCOCCAL (MENACTRA/MENVEO) Aged Out No longer eligible based on patient's age to complete this topic documented as of this encounter Medical Devices Implanted Type Area Boomswing Operator Device Identifier Shelf Expiration Date Model / Serial / Lot Intraocular Lens Implanted:Qty: 1 on 01/12/2016 by Amari Loomis MD at OR [facility] Right: Eye 11/06/2018 [id number]+11.0 / [id number] / [id number] documented as of this encounter Advance Directives Latest Code Status on File Code Status Date Activated Date Inactivated Comments Full Code 01/12/2016 9:49 AM 01/12/2016 3:56 PM This or shweta reflects the patients wishes and were consensually agreed upon. Care Teams Manager Supply Relationship Specialty Start Date End Date Linda Baeza DO [address] [facility] [place] [address] PCP - General Family Medicine 09/11/22 documented as of this encounter
--- OUTSIDE RECORDS SUMMARY | 2023-08-16 11:32 | External Medical Summary | Summary of Care ---
Author Name Unknown Organization [facility] Address [address] [place] [address] Phone [phone] Care Team Providers Care Aircraft Engine Installer Name Role Phone Linda Baeza DO Primary Care Provider +1- [phone] Reason for Visit * Reason Comments Outpatient Testing Encounter Details Date Type Department Care Team (Late st Contact Info) Description 08/09/2023 1:10 PM EDT Laboratory Laboratory, [facility] [address] [place] [address] [facility] [address] [place] [address] Acute cough Allergies Active Allergy Reactions Criticality Noted Date [...] Capsule Take by mouth daily. 0 Active [place] 3 1000 MG Oral Capsule Take by mouth daily . 0 Active Tylenol PM Extra Strength 500-25 MG Oral Tablet (diphenhydrAMINE-A PAP (sleep)) Take 1 Tablet by mouth 3 times a day as needed for Sleep. 0 Active Saline 0.65 % Nasal Solution Administer 1 [place] into nostril as needed for Congestion. 0 [...] 50 MCG/ACT Nasal Suspension (Flonase) Administer 1 [place] into each nostril every evening. 0 07/08/2022 [...] 1 Each by mouth in the morning. 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 [...] No 09/08/2014 documented as of this encounter Plan of Treatment Upcoming Encounters Date Type Department Care Team (Late st Contact Info) Description 08/23/2023 11:00 AM EST Telemedicine Infectious Disease [address] [phone] Ector Polo, DO [address] [place] [address] 08/27/2023 9:30 AM EST [facility] [facility] [place] [phone] Jennie [facility] [address] [facility] [place] [address] 08/28/2023 10:45 AM EST Office Visit Urology Ghada Fraser [address] [place] [address] Paul Ha Jr., MD [address] [place] [address] 08/28/2023 1:00 PM EST Hem/Onc Treatment Hematology/Oncology Treatment, [place] [facility] [address] Gemma, Chair 2 Hem Onc [facility] [address] [facility] [place] [address] 08/30/2023 9:00 AM EST Pharmacy Pharmacy Hematology Oncology [facility] [address] [place] [address] [facility] Hem/Onc [facility] [place] [address] 09/25/2023 9:30 AM EST Laboratory Laboratory [address], [place] [address] [place] [phone] Jennie [address] [place] [place] [address] 09/26/2023 10:00 AM EST Hem/Onc Treatment Hematology/Oncology Treatment [place] [address] [facility] [address] Gemma, Chair 1 Hem Onc [facility] [address] [facility] [place] [address] 10/23/2023 9:30 AM EST Laboratory Laboratory [address], [place] [address] [place] [phone] Jennie [address] [place] [address] 10/24/2023 9:15 AM EST Office Visit Hematology/Oncology [facility] Gemma [place] [address] [facility] [address] Carlos Pierre MD [address] [place] [address] 10/24/2023 9:45 AM EST Hem/Onc Treatment Hematology/Oncology Treatment, [place] [address] [facility], [place] [address] 10/31/2023 10:40 AM EST Office Visit [facility] [place] [address] [address] [place] [address] Linda Baeza, [address] [place] [address] 02/06/2024 10:00 AM EDT Nurse Only Ancillary [address], [place] [address] [place] [address] [place], Nurse Annual Wellness Cold [address] [place] [address] Health Maintenance Due Date Last Done Comments COVID-19 Vaccine ( season) 2023 02/07/2023, 08/10/2022, 02/08/2022, Additional history exists Albumin/Creatinine Ratio 10/24/2023 10/24/2022 CKD PHOS USE SMARTSET 09105 10/24/2023 10/24/2022, 0 04/23/2021 Depression Screening 12/14/2023 12/13/2022 GFR 01/30/2024 07/31/2023, 09/2 04/2023, 06/05/2023, Additional history exists CKD HGB USE SMARTSET 87109 07/31/202408/09, 07/31/2023, 07/31/2023, Additional history exists DTaP,Tdap,and Td Vaccines (2 [...] this encounter Medical Devices Implanted Type Area State Comptroller Device Identifier Shelf Expiration Date Model / Serial / Lot Intraocular Lens Implanted:Qty: 1 on 01/12/2016 by Amari Loomis MD at OR [facility] Right: Eye 11/06/2018 [id number] / [id number] / [id number] documented as of this encounter Procedures Procedure Name Priority Date/Time Associated Diagnosis Comments CBC Routine 08/09/2023 1:11 PM EDT Acute cough documented in this encounter Results * (ABNORMAL) CBC (08/09/2023 1:11 PM EDT) WBC 13.09(H) 4.00 - 10.80 K/uL 08/09/2023 1:23 PM EDT [facility] [place] [facility] [facility] RBC 3.56 4.50 - 5.25 M/uL 08/09/2023 1:23 PM EDT [facility] [place] [facility] [facility] HGB 11.8(L) 14.0 - 16.8 g/dL 08/09/2023 1:23 PM EDT [facility] [place] [facility] HCT 35.7(L) 40.0 - 48.4 % 08/09/2023 1:23 PM EDT [facility] [place] [facility] MCV 100.3 82.0 - 99.5 fL 08/09/2023 1:23 PM EDT [facility] [place] [facility] MCH 33.1 27.0 - 34.0 pg 08/09/2023 1:23 PM EDT [facility] [place] [facility] MCHC 33.1 32.0 - 36.0 g/dL 08/09/2023 1:23 PM EDT [facility] [place] [facility] RDW 13.9 11.5 - 15.5 % 08/09/2023 1:23 PM EDT [facility] [place] [facility]10 PLT 241 140 - 400 K/uL 08/09/2023 1:23 PM EDT [facility] [place] [facility] MPV 10.1 6.6 - 11.1 fL 08/09/2023 1:23 PM EDT [facility] [place] [facility]10 Blood Venous blood specimen / Unknown Venipuncture / Unknown 08/09/2023 1:11 PM EDT 08/09/2023 1:11 PM EDT Salvador MCKEE LAB BLOOD ORDERABLES [facility] [place] [facility]10 [address] [facility] [place] [address] documented in this encounter Visit Diagnoses Diagnosis Acute cough documented in this encounter Advance Directives Latest Code Status on File Code Status Date Activated Date Inactivated Comments Full Code 01/12/2016 9:49 AM 01/12/2016 3:56 PM This o rder reflects the patients wishes and were consensually agreed upon. Care Teams Aircraft Engine Installer Relationship Specialty Start Date End Date Linda Baeza DO [address] [facility] [place] [address] PCP - General Family Medicine 09/11/22 documented as of this encounter
--- OUTSIDE RECORDS SUMMARY | 2023-08-16 11:32 | External Medical Summary | Summary of Care ---
Author Name Unknown Organization [facility] Address [address] [place] [address] Phone [phone] Care Team Providers Care Company Pilot Name Role Phone Linda Baeza DO Primary Care Provider +1- [phone] Reason for Visit * Reason Comments Cough Acute Encounter Details Date Type Department Care Team (Late st Contact Info) Description 08/09/2023 9:00 AM EDT Telemedicine [facility] [address] [place] [address] Salvador Alegria CRNP [address] [place] [address] Viral upper respiratory tract infection*; Stage 3 chronic kidney disease, unspecified whether stage 3a or 3b CKD (HCC); Acute cough; Shortness of breath Allergies Active Allergy Reactions Criticality Noted Date [...] Capsule Take by mouth daily. 0 Active [place]o 3 1000 MG Oral Capsule Take by mouth daily . 0 Active Tylenol PM Extra Strength 500-25 MG Oral Tablet (diphenhydrAMINE-A PAP (sleep)) Take 1 Tablet by mouth 3 times a day as needed for Sleep. 0 Active Saline 0.65 % Nasal Solution Administer 1 [place] into nostril as needed for Congestion. 0 [...] 50 MCG/ACT Nasal Suspension (Flonase) Administer 1 [place] into each nostril every evening. 0 07/08/2022 [...] 1 Each by mouth in the morning. 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 [...] No 09/08/2014 documented as of this encounter Progress Notes * Salvador Alegria CRNP - 08/09/2023 9:06 AM EDT Images from the original note were not included. History of Present Illness Tano Rocha is a 78 year old male that presents for No chief complaint on file. No chief complaint on file. Patient location: HOME. I was in a hospital or clinic location. After connecting through televideo,patient was verified with two unique identifiers. Patient (or authorized legal pharmacy services representative) was then informed that this was a Telemedicine visit and being conducted confidentially over secure lines. Methods to assure confidentiality were taken. Patient acknowledged consent and understanding of pr ivacy and security of the Telemedicine visit. The patient agreed to participate. The patient is a 70-year-old white male who has a complicated past medical history including chronic lymphocytic leukemia, mycobacterium avium intracellulare, hypo gamma globulin anemia, moderate persistent asthma, and dyslipidemia. He presents on the video with complaints of decreased appetite, fatigued, weakness, dry cough more than usual, and shortness of breath which started Saturday a week ago.. Pt got COVID vaccine 07/11/23 and then got RSV shot 07/29/23. Did not have any immediate reactions at the time. Pt has had Covid shots in the past with no reaction. Was seen by Dr. Pierre on 08/01/23 and per pt there were some swollen lymph nodes on neck. At the time the patient did not tell Dr. Pierre that he was not feeling aswell. Pt states has spirometer which he has been using. Temperature check this morning at home was 99.9. O2 home readings have been reading around 95% however they are concerned that the readings may not be accurate. No chills, sore throat, or body aches. No chest pain or wheezing. Patient states was trying to get an office visit with PCP but was unable to get in. Therefore set up with telemedicine. Discussed with patient that telemedicine is limited and I am unable to do physical exam on him. Medical decision-making is a little more difficult especially based on his complicated past medical history and current symptoms. However we discussed that we could get a few tests done. Encouraged patient to get chest x-ray, CBC, and viral respiratory panel. Patient agreeable to the same Reviewed last labs Latest Reference Range & Units 07/03/23 10:00 07/31/23 10:11 Sodium 135 - 146 mmol/L 137 136 Potassium 3.5 - 5.1 mmol/L 4.2 4.7 Chloride 98 - 107 mmol/L 100 102 CO2 22 - 32 mmol/L 25 26 BUN 6 - 20 mg/dL 25 (H) 23 (H) Creatinine 0.6 - 1.2 mg/dL 1.0 1.1 Estimated Glomerular Filtration Rate >=60 mL/min 74 73 Anion Gap 7 - 15 mmol/L 12 8 Glucose 70 - 120 mg/dL 85 87 Calcium 8.4 - 10.2 mg/dL 9.9 9.6 Protein 6.0 - 8.3 g/dL 6.2 6.0 CBC Rpt ! Rpt ! CBC WITH WBC DIFFERENTIAL Rpt ! Rpt ! WBC 4.00 - 10.80 K/uL 15.50 (H) 13.09 (H) HGB 14.0 - 16.8 g/dL 12.5 (L) 12.0 (L) HCT 40.0 - 48.4 % 38.0 (L) 36.5 (L) MCV 82.0 - 99.5 fL 103.5 104.6 PLT 140 - 400 K/uL 206 147 Absolute Neutrophils 1.80 - 7.70 K/uL 3.72 2.49 Absolute Lymphocytes 1.00 - 4.80 K/uL 10.85 (H) 10.08 (H) Absolute Monocytes 0.00 - 1.10 K/uL 0.78 0.26 Absolute Eosinophils 0.00 - 0.70 K/uL 0.26 IRON SCREEN, INCLUDING TIBC Rpt ! Iron 45 - 176 ug/dL 67 Iron Binding Capacity 250 - 425 ug/dL 219 (L) Transferrin Saturation Percent 15 - 55 % 31 Ferritin 30 - 400 ng/mL 581 (H) Albumin 3.8 - 5.0 g/dL 3.9 4.1 AST 10 - 50 U/L 16 17 ALT 10 - 50 U/L 19 15 Alkaline Phosphatase 35 - 130 U/L 65 72 Bilirubin, Total <=1.2 mg/dL <0.2 0.2 IgA 70 - 400 mg/dL 49 (L) 46 (L) IgG 700 - 1,600 mg/dL 830 814 IgM 40 - 230 mg/dL <5 (L) <5 (L) Review of Systems Constitutional: Positive for appetite change and fatigue. States over the weekend had night sweats. HENT: Negative. Eyes: Negative. Respiratory: Positive for cough and shortness of breath. Cardiovascular: Negative. Gastrointestinal: Negative. Endocrine: Negative. Genitourinary: Negative. Musculoskeletal: Negative. Skin: Negative. Neurological: Negative. Hematological: States thinks he has some swollen lymph nodes in neck. Physical Exam There were no vitals taken for this visit. Unable to do physical exam due to telemedicine. Assessment and Plan (J06.9) Viral upper respiratory tract infection (primary encounter diagnosis) Plan: The patient is to get respiratory viral panel swab done today. He is to get a chest x-ray. (N18.30) Stage 3 chronic kidney disease, unspecified whether stage 3a or 3b CKD (HCC) Plan: Continue to follow with PCP and do labs regularly as prescribed by PCP (R05.1) Acute cough Plan: RESPIRATORY PATHOGEN PANEL, PCR, XR CHEST 3 VIEWS, CBC He is to get respiratory pathogen panel and chest x-ray and CBC done today. (R06.02) Shortness of breath Plan: He is to get respiratory pathogen panel, chest x-ray, and CBC done today. Wrap-Up Will follow up with blood work, chest x-ray, and respiratory pathogen panel when resulted. Pt is to follow up with PCP on Saturday if possible Pt is to notify us of any concerning or worsening symptoms. ER precautions were reviewed with the patient. He is to monitor for any worsening symptoms of shortness a breath, fevers, weakness, fatigue, chest pain, or heart palpitations. If things get progressively worse over the weekend he is to go to the ER for evaluation Pt expresses understanding and satisfaction with plan. Time: I spent a total of 30-39 minutes (exact time 39 mins) on the date of service in preparation, delivery, and documentation of the care provided to Tano Rocha excluding any time spent in the performance of separately billed services. RAFI Guerrero documented in this encounter Plan of Treatment Upcoming Encounters Date Type Department Care Team (Late st Contact Info) Description 08/23/2023 11:00 AM EST Telemedicine Infectious Disease [address] [phone] Ector Polo, DO [address] [place] [address] 08/27/2023 9:30 AM EST [facility] [address] [place] [phone] Kay, Lab [facility] [address] [facility] [address] 08/28/2023 10:45 AM EST Office Visit Urology Ghada Fraser [address] [place] [address] Leland Carlos, Paul Bates MD [address] [place] [address] 08/28/2023 1:00 PM EST Hem/Onc Treatment Hematology/Oncology Treatment [place] [address] [place] [address] Gemma, Chair 2 Hem Onc Scenery [address] [place] [address] 08/30/2023 9:00 AM EST Pharmacy Pharmacy Hematology Oncology [facility] [address] [place] [address] [facility], [facility] Hem/Onc [address] [place] [address] 09/25/2023 9:30 AM EST Laboratory Laboratory [place] Patel [address] [place] [place] [address] [place] [place] [address] 09/26/2023 10:00 AM EST Hem/Onc Treatment Hematology/Oncology Treatment [place] 200 [facility] [place] [address] Gemma, Chair 1 Hem Onc Scenery 200 [facility] [place] [address] 10/23/2023 9:30 AM EST Laboratory Laboratory [place] Patel [address] [place] [phone] [place], Lab [address] [address] [place] [address] 10/24/2023 9:15 AM EST Office Visit Hematology/Oncology [place] [address] [place], [place] [address] Carlos Pierre MD [address] [place] [address] 10/24/2023 9:45 AM EST Hem/Onc Treatment Hematology/Oncology Treatment, [place] [address] [place] [address] 10/31/2023 10:40 AM EST Office Visit Family Practice [address], [place] [address] [place] [address] Linda Baeza, [address] [place] [address] 02/06/2024 10:00 AM EDT Nurse Only Ancillary [place] [address] [address] [place] [address] [place], Nurse Annual Wellness Cold [address] [place] [address] Scheduled Orders Name Type Priority Associated Diagnoses Orde r Schedule RESPIRATORY PATHOGEN PANEL, PCR Lab Routine Acute cough Expected: 08/09/2023 (Approximate), Expires: 08/08/2024 XR CHEST 3 VIEWS Medical Imaging Routine Acute cough Ordered: 08/09/2023 CBC Lab Routine Acute cough Expected: 08/09/2023 (Approximate), Expires: 08/08/2024 Health Maintenance Due Date Last Done Comments COVID-19 Vaccine ( season) 2023 02/07/2023, 08/10/2022, 02/08/2022, Additional history exists Albumin/Creatinine Ratio 10/24/2023 10/24/2022 CKD PHOS USE SMARTSET 52206 10/24/2023 10/24/2022, 0 04/23/2021 Depression Screening 12/14/2023 12/13/2022 GFR 01/30/2024 07/31/2023, 0904/2023, 06/05/2023, Additional history exists CKD HGB USE SMARTSET 48593 07/31/202407/31, 07/31/2023, 07/03/2023, Additional history exists DTaP,Tdap,and [...] this encounter Medical Devices Implanted Type Area Survey Project Manager Device Identifier Shelf Expiration Date Model / Serial / Lot Intraocular Lens Implanted:Qty: 1 on 01/12/2016 by Amari Loomis MD at OR [facility] Right: Eye 11/06/2018 MX60+11.0 / [id number] / [id number] documented as of this encounter Visit Diagnoses Diagnosis Viral upper respiratory tract infection- Primary Acute upper respiratory infections of unspecified site Stage 3 chronic kidney disease, unspecified whether stage 3a or 3b CKD (HCC) Acute cough Shortness of breath documented in this encounter Advance Directives Latest Code Status on File Code Status Date Activated Date Inactivated Comments Full Code 01/12/2016 9:49 AM 01/12/2016 3:56 PM This or shweta reflects the patients wishes and were consensually agreed upon. Care Teams Company Pilot Relationship Specialty Start Date End Date Linda Baeza DO [address] [facility] [place] [address] PCP - General Family Medicine 09/11/22 documented as of this encounter
--- OUTSIDE RECORDS SUMMARY | 2023-08-16 11:32 | External Medical Summary | Summary of Care ---
Author Name Unknown Organization [facility] Address [address] [place] [address] Phone [phone] Care Team Providers Care Lathe Machine Operator Name Role Phone Linda Baeza DO Primary Care Provider [phone]- [phone] Reason for Visit * Reason Onset Date Comments Advice 08/08/2023 Appointment 08/08/2023 Acute/Cough/SOB Encounter Details Date Type Department Care Team (Late st Contact Info) Description 08/08/2023 Telephone Family Practice [facility] [address] [place] [address] Linda Baeza DO [address] [place] [address] Advice; Appointment (Acute/Cough/SOB) Allergies Active Allergy Reactions Criticality Noted Date [...] Capsule Take by mouth daily. 0 Active [place] 3 1000 MG Oral Capsule Take by mouth daily . 0 Active Tylenol PM Extra Strength 500-25 MG Oral Tablet (diphenhydrAMINE-A PAP (sleep)) Take 1 Tablet by mouth 3 times a day as needed for Sleep. 0 Active Saline 0.65 % Nasal Solution Administer 1 [place] into nostril as needed for Congestion. 0 [...] 50 MCG/ACT Nasal Suspension (Flonase) Administer 1 [place] into each nostril every evening. 0 07/08/2022 [...] 1 Each by mouth in the morning. [facility] eye doctor for dry macular degeneration. [...] had video appt today with provider in [place]. Labs and x-ray were ordered. Pt will have done. Provider recommended pt be seen in person on Saturday by provider at [place]. Please assist with scheduling. * Telephone Encounter - Timoteo Jeronimo OSA - 08/09/2023 7:17 AM EDT Patient scheduled. * Telephone Encounter - Timoteo Jeronimo OSA - 08/09/2023 7:12 AM EDT Patient calling in to check on the status of previous message. Patient Called within 48 hour timeframe. Reminded patient of 48 hour turn-around time. * Telephone Encounter - Deidre Nascimento OSA - 08/08/2023 3:53 PM EDT [...] 08/23/2023 11:00 AM EST Telemedicine Infectious Disease [address] [phone] Ector Polo, DO [address] [place] [address] 08/27/2023 9:30 AM EST [facility] [address] [facility] [phone] [facility] [address] [place] [address] 08/28/2023 10:45 AM EST Office Visit Urology Ghada Fraser [address] [place] [address] Paul Ha Jr., MD [address] [place] [address] 08/28/2023 1:00 PM EST Hem/Onc Treatment Hematology/Oncology Treatment [place] [address] [place] [address] Gemma, Chair 2 Hem Onc Scenery [address] [facility] [place] [address] 08/30/2023 9:00 AM EST Pharmacy Pharmacy Hematology Oncology [facility] [address] [place] [address] [facility], [facility] Hem/Onc [address] [place] [address] 09/25/2023 9:30 AM EST Laboratory Laboratory [place] Patel [address] [place] [phone] [place] [address] [place] [address] 09/26/2023 10:00 AM EST Hem/Onc Treatment Hematology/Oncology Treatment [place] [address] [facility] [place] [address] Gemma, Chair 1 Hem Onc Scene [address] [facility] [place] [address] 10/23/2023 9:30 AM EST Laboratory Laboratory [address] [place] [address] [place] [phone] [place] [address] [place] [address] 10/24/2023 9:15 AM EST Office Visit Hematology/Oncology [facility] [place] [address] [facility] [place] [address] Carlos Pierre MD [address] [facility] [place] [address] 10/24/2023 9:45 AM EST Hem/Onc Treatment Hematology/Oncology Treatment, [address] [place], [place] [address] 10/31/2023 10:40 AM EST Office Visit Family Practice [place] [address], [place] [address] [place] [address] Linda Baeza DO [address] [place] [address] 02/06/2024 10:00 AM EDT Nurse Only Ancillary [place] [address], [place] [address] [place] [address] [place], Nurse Annual Wellness Cold [address] [place] [address] Health Maintenance Due Date Last Done Comments COVID-19 Vaccine ( season) 2023 02/07/2023, 08/10/2022, 02/08/2022, Additional history exists Albumin/Creatinine Ratio 10/24/2023 10/24/2022 CKD PHOS USE SMARTSET 81371 10/24/2023 10/24/2022, 0 04/23/2021 Depression Screening 12/14/2023 12/13/2022 GFR 01/30/2024 07/31/2023, 06/08, 06/05/2023, Additional history exists CKD HGB USE SMARTSET 14549 08/09/202408/09, 07/31/2023, 07/31/2023, Additional history exists DTaP,Tdap,and Td [...] this encounter Medical Devices Implanted Type Area Conveyancer Device Identifier Shelf Expiration Date Model / Serial / Lot Intraocular Lens Implanted:Qty: 1 on 01/12/2016 by Amari Loomis MD at OR [facility] Right: Eye 11/06/2018 MX60+11.0 / [id number] / [id number] documented as of this encounter Advance Directives Latest Code Status on File Code Status Date Activated Date Inactivated Comments Full Code 01/12/2016 9:49 AM 01/12/2016 3:56 PM This or shweta reflects the patients wishes and were consensually agreed upon. Care Teams Lathe Machine Operator Relationship Specialty Start Date End Date Linda Baeza DO [address] [facility] [place] [address] PCP - General Family Medicine 09/11/22 documented as of this encounter
--- OUTSIDE RECORDS SUMMARY | 2023-08-16 11:32 | External Medical Summary | Summary of Care ---
Author Name Unknown Organization [facility] Address [address] [place] [address] Phone [phone] Care Team Providers Care Manufacturing Engineer Machining Name Role Phone Linda Baeza DO Primary Care Provider +1- [phone] Reason for Visit * Reason Onset Date Comments Advice 08/08/2023 Appointment 08/08/2023 Encounter Details Date Type Department Care Team (Late st Contact Info) Description 08/08/2023 Telephone Family Practice [facility] [address] [place] [address] Linda Baeza DO [address] [place] [address] Advice; Appointment Allergies Active Allergy Reactions Criticality Noted Date [...] Capsule Take by mouth daily. 0 Active [place] 3 1000 MG Oral Capsule Take by mouth daily . 0 Active Tylenol PM Extra Strength 500-25 MG Oral Tablet (diphenhydrAMINE-A PAP (sleep)) Take 1 Tablet by mouth 3 times a day as needed for Sleep. 0 Active Saline 0.65 % Nasal Solution Administer 1 [place] into nostril as needed for Congestion. 0 [...] 50 MCG/ACT Nasal Suspension (Flonase) Administer 1 [place] into each nostril every evening. 0 07/08/2022 [...] encounter Miscellaneous Notes * Telephone Encounter - Timoteo Jeronimo OSA [...] 08/23/2023 11:00 AM EST Telemedicine Infectious Disease [facility] [address] [place] [phone] Ector Polo, [address] [place] [address] 08/27/2023 9:30 AM EST Laboratory [facility] [address] [facility] [place] [phone] [place], [facility] [address] [place] [address] 08/28/2023 10:45 AM EST Office Visit Urology [place] [address] [place] [address] Paul Ha Jr., MD [facility] [address] [place] [address] 08/28/2023 1:00 PM EST Hem/Onc Treatment Hematology/Oncology Treatment, [place] [address] [place] [address] Gemma, Chair 2 Hem Onc Scene 200 [facility] [address] 08/30/2023 9:00 AM EST Pharmacy Pharmacy Hematology Oncology [facility] [address] [place] [address] [facility], [facility] Hem/Onc [address] [place] [address] 09/25/2023 9:30 AM EST Laboratory Laboratory [address], [place] [address] [place] [phone] [place], Lab [address] [place] [address] 09/26/2023 10:00 AM EST Hem[facility] 200 [place] [address] Gemma, Chair 1 Hem Onc [address] [place] [address] 10/23/2023 9:30 AM EST Laboratory Laboratory [place] [facility] [address] [place] [phone] [place] [address] [place] [address] 10/24/2023 9:15 AM EST Office Visit Hematology/Oncology [facility] [address] [place] [address] Carlos Pierre MD [address] [place] [address] 10/24/2023 9:45 AM EST Hem[facility]Onc [facility] 200 [place] [address] 10/31/2023 10:40 AM EST Office Visit Family Practice [address], [place] [address] [place] [address] Linda Baeza DO [address] [place] [address] 02/06/2024 10:00 AM EDT Nurse Only Ancillary [address], [place] [address] [place] [address] [place], Nurse Annual Wellness Cold [address] [place] [address] Health Maintenance Due Date Last Done Comments COVID-19 Vaccine ( season) 2023 02/07/2023, 08/10/2022, 02/08/2022, Additional history exists Albumin/Creatinine Ratio 10/24/2023 10/24/2022 CKD PHOS USE SMARTSET 30417 10/24/2023 10/24/2022, 0 04/23/2021 Depression Screening 12/14/2023 12/13/2022 GFR 01/30/2024 07/31/2023, 06/08, 06/05/2023, Additional history exists CKD HGB USE SMARTSET 59847 07/31/202407/31, 07/31/2023, 07/03/2023, Additional history exists DTaP,Tdap,and [...] this encounter Medical Devices Implanted Type Area Middle School Math Teacher Device Identifier Shelf Expiration Date Model / Serial / Lot Intraocular Lens Implanted:Qty: 1 on 01/12/2016 by Amari Loomis MD at [facility] Right: Eye 11/06/2018 MX60+11.0 / [id number] / [id number] documented as of this encounter Advance Directives Latest Code Status on File Code Status Date Activated Date Inactivated Comments Full Code 01/12/2016 9:49 AM 01/12/2016 3:56 PM This or shweta reflects the patients wishes and were consensually agreed upon. Care Teams Manufacturing Engineer Machining Relationship Specialty Start Date End Date Linda Baeza DO [address] [facility] [place] [address] PCP - General Family Medicine 09/11/22 documented as of this encounter
--- OUTSIDE RECORDS SUMMARY | 2023-08-16 11:33 | External Medical Summary ---
Author Name Unknown Address Unknown Organization K01:[facility] - [address] [place] [address] Laboratory Report Ordering Provider Test Date Status KASSIDY RADFORD 07/31/2023 10:11:26 Final Observation Date Value Abnormality Reference (Units ) Status IgG 07/31/2023 10:11:26 660 [id number] ( mg/dL) Final IgA 07/31/2023 10:11:26 46 Below low normal 70- 400 (mg/dL) Final IgM 07/31/2023 10:11:26 <5 Below low normal 40- 230 (mg/dL) Final Performing Location [facility] - [address] [place] [place] [address]
--- OUTSIDE RECORDS SUMMARY | 2023-08-16 11:33 | External Medical Summary | Summary of Care ---
Author Name Unknown Organization [facility] Address [address] [place] [address] Phone [phone] Care Team Providers Care Principal Research Economist Name Role Phone Linda Baeza DO Primary Care Provider +1- [phone] Reason for Visit * Reason Onset Date Comments Medication Management 08/01/2023 Encounter Details Date Type Department Care Team (Late st Contact Info) Description 08/01/2023 Telephone Hematology/Oncology [facility] [address] [facility] [place] [address] Carlos Pierre MD [address] [place] [address] Medication Management Allergies Active Allergy Reactions Criticality Noted Date Comments Meperidine Hcl 02/19/2019 Lamotrigine Other (Please comment) Medium 07/19/2021 Causes patient to fall. Rofecoxib 11/06/2004 rash &swelling in legs, stumbling (vioxx) documented as of this encounter (statuses as of 08/01/2023) Medications Medication Sig Dispensed Refills Start Date [...] Capsule Take by mouth daily. 0 Active [place] 3 1000 MG Oral Capsule Take by mouth daily . 0 Active Tylenol PM Extra Strength 500-25 MG Oral Tablet (diphenhydrAMINE-A PAP (sleep)) Take 1 Tablet by mouth 3 times a day as needed for Sleep. 0 Active Saline 0.65 % Nasal Solution Administer 1 [place] into nostril as needed for Congestion. 0 [...] 50 MCG/ACT Nasal Suspension (Flonase) Administer 1 [place] into each nostril every evening. 0 07/08/2022 [...] as of this encounter (statuses as of 08/01/2023) Active Problems Problem Noted Date Diagnosed Date Dyslipidemia 09/11/2022 Esophageal reflux 09/11/2022 Multifocal pneumonia [...] as of this encounter (statuses as of 08/01/2023) Resolved Problems Problem Noted Date Diagnosed Date Resolved Date Asthma 09/11/2022 09/11/2022 Stage 3 chronic kidney disease 09/11/2022 09/11/2022 Stage 3 chronic kidney disease 09/11/2022 09/11/2022 CRF (chronic renal failure), stage 3 (moderate) 08/22/2021 04/25/2023 Seizure disorder 12/16/2020 09/11/2022 Asthma, mild persistent 04/30/201303/07 Tuberculosis, treated 07/30/20082021 documented as of this encounter (statuses as of 08/01/2023) Immunizations Name Administration Dates Next Due COVID-19 [...] encounter Miscellaneous Notes * Telephone Encounter - Mariza Hunter LPN - 08/01/2023 12:46 PM EDT Received fax from [employer] that patient was approved for 2023 enrollment status until 10-06-24. Sent to be scanned into [employer]. documented in this encounter Plan of Treatment Upcoming Encounters Date Type Department Care Team (Late st Contact Info) Description 08/23/2023 11:00 AM EST Telemedicine Infectious Disease [address] [phone] Ector Polo, DO [address] [place] [address] 08/27/2023 9:30 AM EST Laboratory Laboratory [facility], [address] [place] [phone] [place], [place] [address] 08/28/2023 10:45 AM EST Office Visit Ghada Mahmood [address] [place] [address] Paul Ha Jr., MD [address] [place] [address] 08/28/2023 1:00 PM EST Hem/Onc Treatment Hematology/Oncology Treatment, [place] 200 [place] [address] Gemma, Chair 2 Hem Onc Scenery [address] [place] [address] [place] [address] 08/30/2023 9:00 AM EST Pharmacy Pharmacy Hematology Oncology [place] [address] [place] [address] [facility] Hem/Onc [facility] [place] [address] 09/25/2023 9:30 AM EST Laboratory Laboratory [place], [place] [address] [place] [phone] [place], [place] [address] 09/26/2023 10:00 AM EST Hem/Onc Treatment Hematology/Oncology Treatment, [place] 200 [facility], [place] [address] Gemma, Chair 1 Hem Onc Scenery 200 [facility] [place] [address] 10/23/2023 9:30 AM EST Laboratory Laboratory [place] [address] [place] [address] [place] [phone] Jon[address] [place] [address] 10/24/2023 9:15 AM EST Office Visit Hematology/Oncology [facility] [address] [place] [address] Carlos Pierre MD [address] [facility] [place], [place] [address] 10/24/2023 9:45 AM EST Hem/Onc Treatment Hematology/Oncology Treatment, [place] [address] [facility] [address] [place], [place] [address] 10/31/2023 10:40 AM EST Office Visit Family Practice [address] [place] [address] [place] [address] Linda Baeza DO [address] [place] [address] 02/06/2024 10:00 AM EDT Nurse Only Ancillary [place] [address] [place] [address] [place], Nurse Annual Wellness [place] [address] [place] [address] Health Maintenance Due Date Last Done Comments COVID-19 Vaccine ( season) 2023 02/07/2023, 08/10/2022, 02/08/2022, Additional history exists Depression Screening 12/14/2023 12/13/2022 DTaP,Tdap,and Td Vaccines (2 - Td or Tdap) 03/10/2028 03/10/2018, 03/20/2013 Pneumococcal Vaccine: 65+ Years Completed 08/08/2015, 03/20/2013 Zoster Vaccines Completed 06/06/2018, 04/02/2018 Albumin/Creatinine Ratio Discontinued 10/24/2022 Influenza Vaccine (FLU shot) Completed 05/31/2023, 06/12/2022, 06/12/2022, Additional history exists GARDASIL-HPV IMMUNIZATION SERIES Aged Out No longer eligible based on patient's age to complete this topic Hepatitis B Aged Out No longer eligi ble based on patient's age to complete this topic MENINGOCOCCAL (MENACTRA/MENVEO) Aged Out No longer eligible based on patient's age to complete this topic documented as of this encounter Medical Devices Implanted Type Area Carcass Washer Device Identifier Shelf Expiration Date Model / Serial / Lot Intraocular Lens Implanted:Qty: 1 on 01/12/2016 by Amari Loomis MD at OR [facility] Right: Eye 11/06/2018 MX60+11.0 / [id number] / [id number] documented as of this encounter Advance Directives Latest Code Status on File Code Status Date Activated Date Inactivated Comments Full Code 01/12/2016 9:49 AM 01/12/2016 3:56 PM This or shweta reflects the patients wishes and were consensually agreed upon. Care Teams Principal Research Economist Relationship Specialty Start Date End Date Linda Baeza DO [address] [facility] [place] [address] PCP - General Family Medicine 09/11/22 documented as of this encounter
--- OUTSIDE RECORDS SUMMARY | 2023-08-16 11:33 | External Medical Summary | Summary of Care ---
Author Name Unknown Organization [facility] Address [address] [place] [address] Phone [phone] Care Team Providers Care Learning Support Services Director Name Role Phone Linda Baeza DO Primary Care Provider +1- [phone] Reason for Visit * Reason Onset Date Comments Follow Up 07/31/2023 Assisting CM wit h calls Encounter Details Date Type Department Care Team (Late st Contact Info) Description 07/31/2023 Telephone Care Coordination [address] [place] [address] Beatriz Cervantes, Community [facility] [address] [place], [place] [id number] Follow Up (Assisting CM with calls) Allergies Active Allergy Reactions Criticality Noted Date Comments Meperidine Hcl 02/19/2019 Lamotrigine Other (Please comment) Medium 07/19/2021 Causes patient to fall. Rofecoxib 11/06/2004 rash &swelling in legs, stumbling (vioxx) documented as of this encounter (statuses as of 07/31/2023) Medications Medication Sig Dispensed Refills Start Date [...] Capsule Take by mouth daily. 0 Active [place] 3 1000 MG Oral Capsule Take by mouth daily . 0 Active Tylenol PM Extra Strength 500-25 MG Oral Tablet (diphenhydrAMINE-A PAP (sleep)) Take 1 Tablet by mouth 3 times a day as needed for Sleep. 0 Active Saline 0.65 % Nasal Solution Administer 1 [place] into nostril as needed for Congestion. 0 [...] 50 MCG/ACT Nasal Suspension (Flonase) Administer 1 [place] into each nostril every evening. 0 07/08/2022 [...] 1 Each by mouth in the morning. 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 [...] as of this encounter (statuses as of 07/31/2023) Active Problems Problem Noted Date Diagnosed Date [...] as of this encounter (statuses as of 07/31/2023) Resolved Problems Problem Noted Date Diagnosed Date Resolved Date Asthma 09/11/2022 09/11/2022 Stage 3 chronic kidney disease 09/11/2022 09/11/2022 Stage 3 chronic kidney disease 09/11/2022 09/11/2022 CRF (chronic renal failure), stage 3 (moderate) 08/22/2021 04/25/2023 Seizure disorder 12/16/2020 09/11/2022 Asthma, mild persistent 04/30/201303/07 Tuberculosis, treated 07/30/20082021 documented as of this encounter (statuses as of 07/31/2023) Immunizations Name Administration Dates Next Due COVID-19 [...] encounter Miscellaneous Notes * Telephone Encounter - Beatriz Cervantes [facility] - 07/31/2023 11:43 AM EDT JARETT Survey 2 In the last month have you had increased or new trouble breathing, or has wheezing gotten worse? Nonot since he has been home In the last month have you had a NEW or worsening cough with mucous? No not new still has some coughs but goes away In the last month have you had any symptoms of cold or had a fever? No In the last month have you been using your inhalers more than usual? No In the last month have you had to start sleeping sitting up in a chair? No In the last month have you had new or increased difficulty in breathing with normal activities suchas bathing or dressing? No Do you use oxygen? No No- move on to next question Yes- are you wearing as ordered or have you increased use? In the last month have you been eating less then you normally do? No CAT Assessment completed in Epic? yes CAT Score: 9 Reviewed 3 Red Flags with patient. Advised to call CM with any of the following: Red Flag 1: Increased sob, worsening cough, Red Flag 2: pain or discomfort, or Red Flag 3: med/health questions or concerns. Electronically signed by Beatriz Cervantes [facility] Health Archivist [facility] at 07/31/2023 12:00 PM EDT documented in this encounter Plan of Treatment Upcoming Encounters Date Type Department Care Team (Late st Contact Info) Description 08/01/2023 8:45 AM EDT Office Visit Hematology/Oncology [facility] 200 [facility] [place] [address] Carlos Pierre MD 200 [place] [address] 08/01/2023 9:15 AM EDT Hem/Onc Treatment Hematology/Oncology Treatment, [place] [address] [place] [address] Gemma, Chair 8 Hem On[address] [place] [address] 08/23/2023 11:00 AM EST Telemedicine Infectious Disease [address] [phone] Ector Polo, [address] [place] [address] 08/28/2023 10:45 AM EST Office Visit Urology [facility] [place] [address] [facility] [address] [place] [address] Paul Ha Jr., MD [facility] [address] [place] [address] 08/30/2023 9:00 AM EST Pharmacy Pharmacy Hematology Oncology [facility] [address] [place] [address] [facility] Hem/Onc [address] [place] [address] 10/31/2023 10:40 AM EST Office Visit Family Practice [address] [place] [address] Linda Baeza DO [address] [place] [address] 02/06/2024 10:00 AM EDT Nurse Only Ancillary [address] [place] [address] [place], Nurse Annual Wellness Cold [address] [place] [address] Health Maintenance Due Date Last Done Comments [...] this encounter Medical Devices Implanted Type Area Hematologist Oncologist Device Identifier Shelf Expiration Date Model / Serial / Lot Intraocular Lens Implanted:Qty: 1 on 01/12/2016 by Amari Loomis MD at OR [facility] Right: Eye 11/06/2018 MX60+11.0 / [id number] / [id number] documented as of this encounter Advance Directives Latest Code Status on File Code Status Date Activated Date Inactivated Comments Full Code 01/12/2016 9:49 AM 01/12/2016 3:56 PM This or shweta reflects the patients wishes and were consensually agreed upon. Care Teams Learning Support Services Director Relationship Specialty Start Date End Date Linda Baeza DO [address] [facility] [place] [id number] PCP - General Family Medicine 09/11/22 documented as of this encounter
--- OUTSIDE RECORDS SUMMARY | 2023-08-16 11:33 | External Medical Summary | Summary of Care ---
Author Name Unknown Organization [facility] Address [address] [place] [address] Phone [phone] Care Team Providers Care Package Dyer Name Role Phone Linda Baeza DO Primary Care Provider +1- [phone] Reason for Visit * Reason Onset Date Comments FYI 07/11/2023 Encounter Details Date Type Department Care Team Description 07/11/2023 Telephone Family Practice [facility] [address] [place] [address] Linda Baeza DO [address] [place] [address] FYI Allergies Active Allergy Reactions Severity Noted Date Comments Meperidine Hcl 02/19/2019 Lamotrigine Other (Please comment) Medium 07/19/2021 Causes patient to fall. Rofecoxib 11/06/2004 rash &swelling in legs, stumbling (vioxx) documented as of this encounter (statuses as of 07/11/2023) Medications Medication Sig Dispensed Refills Start Date [...] Capsule Take by mouth daily. 0 Active [place] 3 1000 MG Oral Capsule Take by mouth daily . 0 Active Tylenol PM Extra Strength 500-25 MG Oral Tablet (diphenhydrAMINE-A PAP (sleep)) Take 1 Tablet by mouth 3 times a day as needed for Sleep. 0 Active Saline 0.65 % Nasal Solution Administer 1 [place] into nostril as needed for Congestion. 0 [...] 50 MCG/ACT Nasal Suspension (Flonase) Administer 1 [place] into each nostril every evening. 0 07/08/2022 [...] 1 Each by mouth in the morning. 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 [...] for Wheezing. 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 Dehydration 05/01/2022 Basal cell carcinoma (BCC) of left shoul shweta 10/19/2021 Claustrophobia 08/22/2021 CLL (chronic lymphocytic leukemia) 01/05 Hypogammaglobulinemia 01/05/2021 Asthma, moderate persistent 03/17/2017 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 07/30/2008 documented as of this encounter (statuses as of 07/11/2023) Resolved Problems Problem Noted Date Resolved Date Asthma 09/11/2022 09/11/2022 Stage 3 chronic kidney disease 09/11/2022 1 11/12/2021 Stage 3 chronic kidney disease 09/11/2022 1 11/12/2021 CRF (chronic renal failure), stage 3 (moderate) 08/22/2021 04/25/2023 Seizure disorder 12/16/2020 09/11/2022 Asthma, mild persistent 04/30/2013 03/17/20 17 Tuberculosis, treated 07/30/2008 09/11/2022 documented as of this encounter (statuses as of 07/11/2023) Immunizations Name Administration Dates Next Due COVID-19 mRNA, LNP-s, No Pre serve, 2-Dose Series ([employer]) 06/07/2021,12/14/2020,11/23/2020 COVID-19, LNP-s, No Preserve , William-sucrose, Ages 12+ (Pfizer) 02/08/2022 COVID-19, mRNA, LNP-s, PF, B ooster, 100mcg/0.5mg (Moderna) 02/07/2023,08/02/2021 Covid-19, Mrna, Lnp-s, Pf, B ivalent, 30 Mcg, IM, 12 yrs and above (Pfizer) 08/10/2022 Pneumococcal Conjugate Vacc, 13 Valent (Prevnar) 08/08/2015 Pneumococcal Polysaccharide PPV23 (Pneumovax) 03/20/2013 Seasonal Influenza Virus Vac cine, Unspecified Formulation [...] drink = 0.6 oz pur e alcohol) Food Insecurity Answer Date Recorded Within the past 12 months, y ou worried that your food would run out before you got money to buy more. Never true 12/13/2022 Within the past 12 months, t he food you bought just didn't last and you didn't have money to get more. Never true 12/13/2022 Sex Assigned at Date Recorded Not on file Job Start Date Occupation [...] encounter Miscellaneous Notes * Telephone Encounter - ANASTACIA Pritchard - 07/11/2023 12:09 PM EDT AVS from DOS 07/10 printed and mailed to patient's home address. * Telephone Encounter - ANASTACIA Juarez - 07/11/2023 11:56 AM EDT Patient called stating he saw Dr. Baeza on 07/10 and he received someone else's after visit summaryand didn't realize it until he got home. Informed patient to please destroy that information. Patient is asking to please mail him his after visit summary to his home address. Informed patient that he can view his summary on his My Chart but he likes to have a physical copy. Please mail his summary from 07/[address] Baeza. Thank you documented in this encounter Plan of Treatment Upcoming Encounters Date Type Specialty Care Team Description 07/31/2023 Laboratory Laboratory Jonatan [address] [place] [address] 08/01/2023 Office Visit Hematology Oncology Carlos Pierre MD 200 [facility] [place] [address] 08/01/2023 Hem/Onc Treatment Hematology Oncology [place], Chair 8 Hem Onc Scenery [address] [place] [address] 08/28/2023 Office Visit Urology [place], Paul Bates MD [address] [facility] [address] [place] [address] 08/30/2023 Pharmacy Pharmacy [facility] Hem/Onc [address] [place] [address] 10/31/2023 Office Visit Family Medicine Linda Baeza DO [address] [place] [address] 02/06/2024 Nurse Only [facility], Nurse Annual Wellness Cold [address] [place] [address] Health Maintenance Due Date Last Done Comments [...] this encounter Medical Devices Implanted Type Area Receptionist Scheduler Device Identifier Shelf Expiration Date Model / Serial / Lot Intraocular Lens Implanted:Qty: 1 on 01/12/2016 by Amari Loomis MD at OR [facility] Right: Eye 11/06/2018 MX60+11.0 / [id number] / [id number] documented as of this encounter Advance Directives Latest Code Status on File Code Status Date Activated Date Inactivated Comments Full Code 01/12/2016 9:49 AM 01/12/2016 3:56 PM This or shweta reflects the patients wishes and were consensually agreed upon. Care Teams Package Dyer Relationship Specialty Start Date End Date Linda Baeza DO [address] [facility] [place] [address] PCP - General Family Medicine 09/11/22 documented as of this encounter
--- OUTSIDE RECORDS SUMMARY | 2023-08-16 11:33 | External Medical Summary ---
Author Name Unknown Address Unknown Organization K0G:[facility] [address] [place] [address] Laboratory Report Ordering Provider Test Date Status AUGUSTA SINGH 08/09/2023 13:11:07 Final Observation Date Value Abnormality Reference (Units ) Status WBC, Total 08/09/2023 13:11:07 13.09 Above high normal 4 .00-10.80 (K/uL) Final RBC 08/09/2023 13:11:07 3.56 4.50-5.25 (M/uL) Final Hemoglobin 08/09/2023 13:11:07 11.8 Below low normal 14 .0-16.8 (g/dL) Final HCT 08/09/2023 13:11:07 35.7 Below low normal 40. 0-48.4 (%) Final MCV 08/09/2023 13:11:07 100.3 82.0-99.5 (fL) Final MCH 08/09/2023 13:11:07 33.1 27.0-34.0 (pg) Final MCHC 08/09/2023 13:11:07 33.1 32.0-36.0 (g/dL) Final RDW 08/09/2023 13:11:07 13.9 11.5-15.5 (%) Final Platelets 08/09/2023 13:11:07 241 140-400 (K /uL) Final MPV 08/09/2023 13:11:07 10.1 6.6-11.1 ( fL) Final Performing Location [facility] [address] [place] [address]
--- OUTSIDE RECORDS SUMMARY | 2023-08-16 11:33 | External Medical Summary | Summary of Care ---
Author Name Unknown Organization [facility] Address [address] [place] [address] Phone [phone] Care Team Providers Care [employer] Name Role Phone Linda Baeza DO Primary Care Provider +1- [phone] Reason for Visit * Reason Comments Outpatient Testing Encounter Details Date Type Department Care Team (Latest Contact Info) Description 07/31/2023 10:00 AM EDT Laboratory Laboratory [facility], [place] [address] [place] [phone] [facility] [address] [place] [address] Hypogammaglobulinemia (HCC); CLL (chronic lymphocytic leukemia) (HCC) Allergies Active Allergy Reactions Criticality Noted Date [...] Capsule Take by mouth daily. 0 Active [place] 3 1000 MG Oral Capsule Take by mouth daily . 0 Active Tylenol PM Extra Strength 500-25 MG Oral Tablet (diphenhydrAMINE-A PAP (sleep)) Take 1 Tablet by mouth 3 times a day as needed for Sleep. 0 Active Saline 0.65 % Nasal Solution Administer 1 [place] into nostril as needed for Congestion. 0 [...] 50 MCG/ACT Nasal Suspension (Flonase) Administer 1 [place] into each nostril every evening. 0 07/08/2022 [...] 08/01/2023 8:45 AM EDT Office Visit Hematology/Oncology [facility] [place] [address] [place] [address] Carlos Pierre MD 200 [facility] [place] [address] 08/01/2023 9:15 AM EDT Hem/Onc Treatment Hematology/Oncology Treatment, [place] 200 [facility] [place] [address] Gemma, Chair 8 Hem Onc [place] [address] [place] [address] [address] 08/23/2023 11:00 AM EST Telemedicine Infectious Disease [address] [phone] Ector Polo, DO [address] [place] [address] 08/28/2023 10:45 AM EST Office Visit Urology [place] [address] [place] [address] Paul Ha Jr., MD [address] [place] [address] 08/30/2023 9:00 AM EST Pharmacy Pharmacy Hematology Oncology [facility] [address] [place] [address] [facility] [place], [facility] Hem/Onc [address] [place] [address] 10/31/2023 10:40 AM EST Office Visit Family Practice [place] Patel [address] [place] [address] [place] [address] Linda Baeza DO [address] [place] [address] 02/06/2024 10:00 AM EDT Nurse Only Ancillary [place] Patel [address] [place] [address] [place] [address] [place], Nurse Annual Wellness [place] [address] [place] [address] Pending Results Name Type Priority Associated Diagnoses Date /Time IMMUNOGLOBULIN QUANTITATIVE Lab STAT Hypogammaglobulinemia (HCC) 07/31/2023 10:11 AM EDT CBC WITH WBC DIFFERENTIAL Lab STAT CLL (chronic lymphocytic leukemia) ([facility]) 07/31/2023 10:11 AM EDT COMPREHENSIVE METABOLIC PANEL Lab STAT CLL (chronic lymphocytic leukemia) ([facility]) 07/31/2023 10:11 AM EDT CBC Lab STAT CLL (chronic lymphocytic leukemia) ([facility]) 07/31/2023 10:11 AM EDT DIFFERENTIAL, AUTOMATED Lab STAT CLL (chronic lymphocytic leukemia) (HCC) 07/31/2023 10:11 AM EDT Health Maintenance Due Date Last Done Comments [...] this encounter Medical Devices Implanted Type Area A/C Tech Device Identifier Shelf Expiration Date Model / Serial / Lot Intraocular Lens Implanted:Qty: 1 on 01/12/2016 by Amari Loomis MD at OR [facility] Right: Eye 11/06/2018 MX60+11.0 / [id number] / [id number] documented as of this encounter Visit Diagnoses Diagnosis Hypogammaglobulinemia (HCC) Hypogammaglobulinaemia, unspecified CLL (chronic lymphocytic leukemia) (HCC) Chronic lymphoid leukemia, without mention of having achieved remission documented in this encounter Advance Directives Latest Code Status on File Code Status Date Activated Date Inactivated Comments Full Code 01/12/2016 9:49 AM 01/12/2016 3:56 PM This or shweta reflects the patients wishes and were consensually agreed upon. Care Teams [employer] Relationship Specialty Start Date End Date Linda Baeza DO [address] [facility] [place] [address] PCP - General Family Medicine 09/11/22 documented as of this encounter
--- OUTSIDE RECORDS SUMMARY | 2023-08-16 11:33 | External Medical Summary | Summary of Care ---
Author Name Unknown Organization [facility] Address [address] [place] [address] Phone [phone] Care Team Providers Care Chief Relay Tester Name Role Phone Linda Baeza DO Primary Care Provider [phone] Reason for Visit * Reason Onset Date Comments case management 07/05/2023 Encounter Details Date Type Department Care Team Description 07/05/2023 Telephone Care Coordination [address] [place], [place] [id number] Felicitas Sharma RN [address] [place] [address] case management (/) Allergies Active Allergy Reactions Severity Noted Date Comments Meperidine Hcl 02/19/2019 Lamotrigine Other (Please comment) Medium 07/19/2021 Causes patient to fall. Rofecoxib 11/06/2004 rash &swelling in legs, stumbling (vioxx) documented as of this encounter (statuses as of 07/05/2023) Medications Medication Sig Dispensed Refills Start Date [...] Capsule Take by mouth daily. 0 Active [place] 3 1000 MG Oral Capsule Take by mouth daily . 0 Active Tylenol PM Extra Strength 500-25 MG Oral Tablet (diphenhydrAMINE-A PAP (sleep)) Take 1 Tablet by mouth 3 times a day as needed for Sleep. 0 Active Saline 0.65 % Nasal Solution Administer 1 [place] into nostril as needed for Congestion. 0 [...] 50 MCG/ACT Nasal Suspension (Flonase) Administer 1 [place] into each nostril every evening. 0 07/08/2022 [...] 1 Each by mouth in the morning. [facility] for dry macular degeneration. 0 Active Azithromycin 250 MG Oral Tablet (Zithromax) Take 2 Tablets by mouth once a day on Saturday, Saturday, and Saturday only. 24 Tablet 3 06/10/2023 Active rifAMPin 300 MG Oral Capsule (Rifadin) Take 2 Capsules by mouth once a day on Saturday, Saturday, and Saturday only. 24 Capsule 0 06/10/2023 Active predniSONE 10 MG Oral Tablet (Deltasone) Take 3 Tablets by mouth in the morning. 0 06/30/2023 Active Zinc Acetate 50 MG Oral Capsule Take 50 mg by mouth in the morning. 0 06/27/2023 Active guaiFENesin ER 600 MG Oral Tablet Extended Release 12 Hour (Mucinex) Take 1 Tablet by mouth in the morning and 1 Tablet before bedtime. 0 06/30/2023 Active Levalbuterol HCl 1.25 MG/3ML Inhalation Nebulization Solution (Xopenex)Indicatio ns:Viral pneumonia Inhale 1 Ampule via nebulizer every 4 hours as needed for Wheezing. 72 mL 5 07/02/2023 Active documented as of this encounter (statuses as of 07/05/2023) Active Problems Problem Noted Date Dyslipidemia 09/11/2022 [...] as of this encounter (statuses as of 07/05/2023) Resolved Problems Problem Noted Date Resolved Date Asthma 09/11/2022 09/11/2022 Stage 3 chronic kidney disease 09/11/2022 1 11/12/2021 Stage 3 chronic kidney disease 09/11/2022 1 11/12/2021 CRF (chronic renal failure), stage 3 (moderate) 08/22/2021 04/25/2023 Seizure disorder 12/16/2020 09/11/2022 Asthma, mild persistent 04/30/2013 03/17/20 17 Tuberculosis, treated 07/30/2008 09/11/2022 documented as of this encounter (statuses as of 07/05/2023) Immunizations Name Administration Dates Next Due COVID-19 mRNA, LNP-s, No Pre serve, 2-Dose Series (Pfizer) 06/07/2021,12/14/2020,11/23/2020 COVID-19, LNP-s, No Preserve , William-sucrose, Ages 12+ (Pfizer) 02/08/2022 COVID-19, mRNA, LNP-s, PF, B ooster, 100mcg/0.5mg (Moderna) 02/07/2023,08/02/2021 Covid-19, Mrna, Lnp-s, Pf, B ivalent, 30 Mcg, IM, 12 yrs and above (Pfizer) 08/10/2022 Pneumococcal Conjugate Vacc, 13 Valent (Prevnar) 08/08/2015 Pneumococcal Polysaccharide PPV23 (Pneumovax) 03/20/2013 Seasonal Influenza, Quadriva lent Hd, 65+ Yrs [...] encounter Miscellaneous Notes * Telephone Encounter - Felicitas Sharma, ABRAHAM - 07/05/2023 5:32 PM EDT Role of CM and reason for call and discussed with pt, agreeable. Reports: Received nebulizer and meds but is frustrated with figuring out how to use it. Caitlin reports she went to the website and it's confusing. STEFANIA went to website. Caitlin reports, "I have a meeting with the [facility] virtually and I may wait until Saturday". Requested her to stay on the phone for a couple more minutes and CM accessed website and handbook. Tano was now on the phone and expressed his frustration with the process of obtaining the nebulizer, medication order, and no home care ever reached out to him and he reports that at d/c he was told that a nurse would be in th home to teach them how to use the equipment. Acknowledged his frustration and offered to support them the best that I could. STEFANIA on website and Caitlin/Tano looking at their equipment. Reviewed different pieces they should have on hand. Verbalized they haveit. Discussed how it connects together and how to connect the tubing. Where the medication goes andhow long it typically runs. Also discussed the mouth piece and setting that up. Caitlin felt much more comfortable after reviewing the items and feels she can set it up for [place]. Offered to contact their daughter for assistance. They politely declined. Also offered to contact their son and he is on acamping trip all weekend. Caitlin and Tano expressed their appreciation in attempting to do this overthe phone and are agreeable to f/u on Saturday to see how they made out with the Nebulizer.Tano's right wrist is slightly swollen. Robert falls but feels he must have hit it. Tylenol helping for discomfort and will ice it 15 minutes on/off and not directly on his skin. Refusing urgent care at this time. Reports his breathing and cough are much improved. No other questions or concerns offered at this time. Upcoming appointments include: 07/10 PCP. Encouraged to call with RED FLAGS: Increased SOB orworsening cough, increased or uncontrolled pain, no improvement in swelling to wrist, med or healthquestions or concerns. Plan for Future Contacts: Plan to follow up 1-3 days to check progress on goals/needs. Felicitas Sharma RN, MSN Employee Operations Examiner [facility] [phone] documented in this encounter Plan of Treatment Upcoming Encounters Date Type Specialty Care Team Description 07/10/2023 Office Visit Family Medicine Linda Baeza, [address] [facility] [place] [address] 07/31/2023 Laboratory Laboratory Jonatan [address] [place] [address] 08/01/2023 Office Visit Hematology Oncology Carlos Pierre MD [address] [facility] [place] [address] 08/01/2023 Hem/Onc Treatment Hematology Oncology Gemma, Chair 8 Hem Onc [facility] [address] [facility] [place] [address] 08/28/2023 Office Visit Urology Paul Ha Jr., MD [address] [address] [place] [address] 08/30/2023 Pharmacy Pharmacy [facility] Hem/Onc [address] [place] [address] 10/31/2023 Office Visit Family Medicine Linda Baeza DO [address] [facility] [place] [address] 02/06/2024 Nurse Only [facility], Nurse Annual Wellness [facility] [address] [place] [address] Health Maintenance Due Date Last Done Comments Depression Screening 12/14/2023 12/13/2022 DTaP,Tdap,and Td Vaccines (2 - Td or Tdap) 03/10/2028 03/10/2018, 03/20/2013 Pneumococcal Vaccine: 65+ Years Completed 08/08/2015, 03/20/2013 Zoster Vaccines Completed 06/06/2018, 04/02/2018 Albumin/Creatinine Ratio Discontinued 10/24/2022 COVID-19 Vaccine Completed 02/07/2023, 01/2022, 02/08/2022, Additional history exists Influenza Vaccine (FLU shot) Completed 05/31/2023, 06/12/2022, [...] this encounter Medical Devices Implanted Type Area Java Integration Developer Device Identifier Shelf Expiration Date Model / Serial / Lot Intraocular Lens Implanted:Qty: 1 on 01/12/2016 by Amari Loomis MD at OR [facility] Right: Eye 11/06/2018 [id number] / [id number] / [id number] documented as of this encounter Advance Directives Latest Code Status on File Code Status Date Activated Date Inactivated Comments Full Code 01/12/2016 9:49 AM 01/12/2016 3:56 PM This or shweta reflects the patients wishes and were consensually agreed upon. Care Teams Chief Relay Tester Relationship Specialty Start Date End Date Linda Baeza, [address] [facility] [place] [address] PCP - General Family Medicine 09/11/22 documented as of this encounter
--- OUTSIDE RECORDS SUMMARY | 2023-08-16 11:33 | External Medical Summary | Summary of Care ---
Author Name Unknown Organization [facility] Address [address] [place] [address] Phone [phone] Care Team Providers Care Calciner Operator Helper Name Role Phone Linda Baeza DO Primary Care Provider +1- [phone] Reason for Visit * Reason Comments Chemotherapy Chemo/recheck Encounter Details Date Type Department Care Team (Late st Contact Info) Description 08/01/2023 8:45 AM EDT Office Visit Hematology/Oncology [facility] [address] [facility] [place] [address] Carlos Pierre MD [address] [place] [address] CLL (chronic lymphocytic leukemia) (HCC)*; Hypogammaglobulinemia (HCC) Allergies Active Allergy Reactions Criticality Noted [...] Capsule Take by mouth daily. 0 Active Laurens 3 1000 MG Oral Capsule Take by mouth daily . 0 Active Tylenol PM Extra Strength 500-25 MG Oral Tablet (diphenhydrAMINE-A PAP (sleep)) Take 1 Tablet by mouth 3 times a day as needed for Sleep. 0 Active Saline 0.65 % Nasal Solution Administer 1 [place] into nostril as needed for Congestion. 0 [...] 50 MCG/ACT Nasal Suspension (Flonase) Administer 1 [place] into each nostril every evening. 0 07/08/2022 [...] Date Smoking Tobacco: Never Smokeless Tobacco: Never Tobacco Cessation:Counseling Given: Not Answered Alcohol Use Standard Drinks/Week Comments Never 0 [...] on file documented as of this encounter Last Filed Vital Signs Vital Sign Reading Time Taken Comments Blood Pressure 142/69 08/01/2023 8:37 AM EDT Pulse 65 08/01/2023 8:37 AM EDT Temperature 36.5 C (97.7 F) 08/01/2023 8:37 AM ED T Respiratory Rate 16 08/01/2023 8:37 AM EDT Oxygen Saturation 95% 08/01/2023 8:37 AM EDT Inhaled Oxygen Concentration - - Weight 69.2 kg (152 lb 9.6 oz) 08/01/2023 8:37 A M EDT Height - - Body Mass Index 21.9 07/10/2023 1:57 PM EDT documented in this encounter Functional Status Functional Status Response [...] as of this encounter Progress Notes * Carlos Pierre MD - 08/01/2023 8:45 AM EDT Hematology/Oncology Outpatient Clinic note Wilfredo Menendez [address] [place] [address] Name: Tano Rocha Date: 04/10/2023 CHIEF COMPLAINT: Tano Rocha is a 78 year old male here today for f/u visit today. 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 DATE OF DIAGNOSIS: June 2020 CURRENT TREATMENT: Acalabrutinib (Calquence) 100 mg BID (04/30/22 - ) IVIG at 400 mg per kiligram, final dose --> 28 g every 4 weekly. (Started on 01/19/2021) -currently on hold at patient request ONCOLOGY HISTORY: He was noticed to have elevated White blood cell count around 25,000 in June 2020, It was around 13,000 earlier in November 2019. -Absolute lymphocyte count was around 21,000 in June 2020. H&H of 13.3/39.2, Platelet count of 159 1000 He was seen by Dr. Fair. Bone marrow (06/10/2020: -CLL involvement, hypercellular bone marrow 90 to 95% cellularity. - bone marrow is essentially replaced by CLL/SLL with only rare background hematopoietic elements. Additional studies show trisomy 12 and t(14;19). - IgVH Hypermutation Analysis: Unmutated -CD 38 negative. Del(1p): Not Detected | Dup(1q): Not Detected | Gains(5, 9, 15): Not Detected | Del(13q): Not Detected | Del(17p)(TP53): Not Detected He has remained under observation since the diagnosis of B-cell CLL. He says that the he gets repeated pulmonary infection, found to have slightly low level IgG level around 450 range. Recently she was seen by development officer ([facility] asthma and allergy care), they plan to start him on immunoglobin treatment, this started him on subcutaneous immunoglobulin but while he was receiving the injection in the office, he had a possible vasovagal episode and possible seizure, he was then admitted at [facility] [place], I reviewed those records, EEG was normal but he was started on Keppra , also follows up with neurologist, recently they have added Lamictal. He also had a brain imaging which was unremarkable. OTHER IMPORTANT HISTORY: -possible seizure disorder. His suggest that he gets some kind of shaking of the body, stiffness of the body with some specific situational related. Presently he is on Lamictal and Keppra. -BPH he had a surgical intervention over 10 years back, had a frequent UTI in the past but no similar episode for the last 2 years or so. -history of shingles in the past. He had a vaccination for that. -he completed COVID-19 vaccination recently. 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 -IMAGING: CT scan of the abdomen pelvis (11/12/2021: - 1. Extensive periaortic, retroperitoneal and mesenteric adenopathy correlating with the patient's previous history of CLL. 2. Moderate to marked splenomegaly. 3. Moderate fecal stasis without impaction or obstruction. 4. Fluid-filled loops of small bowel characteristic of ileus versus gastroenteritis. 5. Mild left hydronephrosis which is most likely physiologic related to distended urinary bladder. 6. Additional nonacute findings are delineated above. CT chest at [facility] (12/31/2019). 1. Patchy alveolar opacities within the right lower lobe characteristic of the presence of pneumonia. 2. Evidence for bronchiectasis and mucous plugging involving the anterior segment of left upper lobe. 3. Previously identified alveolar opacities within the right upper lobe and left lower lobe have resolved. 4. Marked adenopathy is again seen at the base of the neck and infraclavicular regions. Is also again extensive bilateral axillary and pretracheal adenopathy. Evaluation of the adenopathy is limited on these noncontrast images. 5. Interval development of marked splenomegaly. CT neck (01/26/2022) 1. Extensive lymphadenopathy throughout the neck as described above. This likely corresponds to thepatient's known history of lymphoma. A few the right lower lymph nodes are partially necrotic. 2. Trace retropharyngeal fluid without definite abscess. 3. Acute on chronic paranasal sinus disease. Interval History: I reviewed his recent blood workup findings, further rise in the lymphocyte count, worsening anemianoted, hemoglobin dropped down to 8.2 g/dL. Earlier we plan for acalabrutinib, waiting for the drug assistance program. I reviewed with him regarding the treatment schedule acalabrutinib, side effect profile he is in agreement for that. Will continue IVIG every monthly as we planned. He is at high risk for tumor lysis, earlier Uric acid was in normal range, I would like to start prophylactic allopurinol 100 mg once a day. HISTORY OF PRESENT ILLNESS: He was admitted at [facility] in June 2023 for viral pneumonia, I reviewed hospital records, CT chest was done on 06/27/2023 showed Multifocal nodular and groundglass opacities are seen throughout the lungs and there is bronchial wall thickening as well. -mediastinal lymphadenopathy measuring up to 1.6 cm. He was there for about 3 to 4 days and then he was discharged home. He has come the clinic for the follow-up, accompanied by his in the office, now he has recovered well, previously noted pulmonary symptoms have improved, not on oxygen treatment, ambulating wellby himself, current weight around 152 lb, no chest pain, no bleeding from the sites, some easy bruising. Tolerated treatment well, he receives IVIG every monthly. 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 DC NONE 02/05/2004 heart cath at [facility]. NONE 10/07/1949 Tonsils and adenoids NONE 10/07/1976 Vasectomy NONE 11/14/[address] Yeager at [facility] REMOVAL OF PROSTATE (TURP) 02/27/2019 TRANSURETHRAL RESECTION PROSTATE ELECTROSURGICAL performed by Selene Lange MD at OR [facility] Social History Tobacco Use Smoking status: Never Smokeless tobacco: Never Vaping Use Vaping Use: Never used Substance and Sexual Activity Alcohol use: Never Drug use: Never Sexual activity: Yes Partners: Female Review of patient's allergies indicates: Allergen Reactions Lamictal [Lamotrigine] Other (Please comment) Causes patient to fall. Demerol [Meperidine Hcl] Rofecoxib rash &swelling in legs, stumbling (vioxx) Current Outpatient Medications Medication Sig Dispense Refill NATURAL SUPPLEMENT vinegar/honey daily 0 0 Probiotic Product (PROBIOTIC ACIDOPHILUS BIOBEADS) Capsule Take 2 Capsules by mouth in the morning. Multiple Vitamins-Minerals (MULTIVITAMIN MEN 50+) TABS Take by mouth 1 Tablet daily . Ferrous Sulfate (IRON) 325 (65 Fe) MG TABS Take 1 Tablet by mouth in the morning. Zinc 50 MG Oral Tablet Take 1 Tablet by mouth in the morning. Vitamin C 500 MG Oral Capsule Take by mouth daily. Laurens 3 1000 MG Oral Capsule Take by mouth daily . Tylenol PM Extra Strength 500-25 MG Oral Tablet (diphenhydrAMINE-APAP (sleep)) Take 1 Tablet by mouth 3 times a day as needed for Sleep. Saline 0.65 % Nasal Solution Administer 1 [place] into nostril as needed for Congestion. CoQ10 100 MG Oral Capsule Take by mouth . Ethambutol HCl 400 MG Oral Tablet (Myambutol) Take by mouth 4 Tablets once a day on Saturday, Saturday, and Saturday only . 144 Tablet 3 Acalabrutinib 100 MG Oral Capsule (Calquence) Take by mouth 100 mg 2 times a day . With or without food 60 Capsule 5 Fluticasone Propionate 50 MCG/ACT Nasal Suspension (Flonase) Administer 1 [place] into each nostril every evening. Benefiber Drink Mix Oral Packet Take 1 Dose by mouth every evening. Privigen 40 GM/400ML Intravenous Solution (Immune Globulin Human-IVIG 10%) Administer 40 g intravenously Every Month. Every 28 days Fluticasone Furoate-Vilanterol 200-25 MCG/ACT Inhalation Aerosol Powder Breath Activated (BREO ellipta) INHALE 1 INHALATION EVERY MORNING AND RINSE MOUTH AFTER 180 Each 1 NATURAL SUPPLEMENT Take 1 Each by mouth in the morning. EDJANSTEFTH PLUS-Per eye doctor for dry macular degeneration. Azithromycin 250 MG Oral Tablet (Zithromax) Take 2 Tablets by mouth once a day on Saturday, Saturday, and Saturday only. 24 Tablet 3 Zinc Acetate 50 MG Oral Capsule Take 50 mg by mouth in the morning. guaiFENesin ER 600 MG Oral Tablet Extended Release 12 Hour Take 1 Tablet by mouth in the morning and 1 Tablet before bedtime. Levalbuterol HCl 1.25 MG/3ML Inhalation Nebulization Solution (Xopenex) Inhale 1 Ampule via nebulizer every 4 hours as needed for Wheezing. 72 mL 5 Breo Ellipta 200-25 MCG/ACT Inhalation Aerosol Powder Breath Activated INHALE ONE PUFF BY MOUTH EVERY DAY 180 Each 2 rifAMPin 300 MG Oral Capsule (Rifadin) Take 2 Capsules by mouth once a day on Saturday, Saturday, and Saturday only. 24 Capsule 0 No current facility-administered medications for this visit. OBJECTIVE: BP 142/69 (BP Site: Left Arm, BP Position: Sitting, BP Cuff Size: Regular) | Pulse 65 | Temp 36.5 C (97.7 F) (Tympanic) | Resp 16 | Wt 69.2 kg (152 lb 9.6 oz) | SpO2 95% | BMI 21.90 kg/m | BSA 1.85 m PHYSICAL EXAM: ECOG: Performance Status 1 = 80-90% Symptoms but nearly ambulatory General Appearance: No acute distress HEENT: Normal - No oral or pharyngeal masses, ulceration or thrush noted Lymph Nodes: Normal - No palpable lymph nodes in the neck, supraclavicular or axillary areas Lungs/Thorax: Normal - Clear to auscultation Heart: Normal - Regular rate and rhythm, normal S1, S2, no appreciable murmurs Pulses/Extremities: Normal - 2+ throughout and symmetrical, trace pedal edema Abdomen: Normal - Soft, nontender, bowel sounds present, no appreciable hepatosplenomegaly, no palpable masses Neurologic: Normal - Grossly intact LABS: Blood workup done on 07/31/2023: - WBC 13,000 - ANC 2400 - ANC --> 10,000 - H&H of /36.5, platelet count 147,000 - BUN/Creat: 25/1.0, normal LFT, calcium 9.9. IgG level was around 830 on 07/03/2023. IMPRESSION/PLAN: B cell CLL Hypogammaglobinemia Overall he has recovered from recent hospitalization, reviewed hospital records, reviewed the CT scan findings. Reviewed blood workup done on 07/31/2020, persistent stable lymphocytosis, stable kidney and liver function test noted. IgG level is over 500 range. Will continue IVIG every monthly as we planned next para she will continue Calquence 100 mg twice aday He will continue follow-up with ID regarding LULI treatment. Dr. Carlos Pierre Hem/Onc (This note was completed using the dictation program Fluency Direct. As such, there may be misspellings word substitutions, or other variations that should not change the essence of the clinical content of this encounter note. If there is need for further clarification, please direct questions to the provider listed above.) documented in this encounter Nursing Notes * Melissa Armenta CMA - 08/01/2023 8:38 AM EDT Patient identifed by name and birthdate Do you have any concerns about pain management for today's visit? No Living Will or Advance Directive for Health Care as noted on the problem list. [facility] is a way you can talk to your provider on line through e-mail. Would you like to sign up? I can activate it for you? ALREADY ACTIVE Filed Vitals: 08/01/23 0837 BP: 142/69 Pulse: 65 Resp: 16 Temp: 36.5 C (97.7 F) TempSrc: Tympanic SpO2: 95% Weight: 69.2 kg (152 lb 9.6 oz) Patient was instructed to not get up on the exam table/exam chair until directed and assisted by their provider; patient is to remain seated in the chair/ wheelchair/ exam table/ exam chair for fall prevention and safety reasons. Patient is aware to have assistance to step down off exam table/exam chair with personnel. Patient voiced full comprehension of instructions. documented in this encounter Plan of Treatment Upcoming Encounters Date Type Department Care Team (Late st Contact Info) Description 08/23/2023 11:00 AM EST Telemedicine Infectious Disease [address] [phone] Ector Polo, [address] [place] [address] 08/27/2023 9:30 AM EST Laboratory Laboratory [address], [place] [address] [place] [address] Jonatan Schneider [address] [place] [address] 08/28/2023 10:45 AM EST Office Visit Urology [facility] [place] [address] [place] [address] Paul Ha Jr., MD [address] [place] [address] 08/28/2023 1:00 PM EST Hem/Onc Treatment Hematology/Oncology Treatment, [place] [address] [place] [address] Gem[place], Chair 2 Hem Onc [place] [address] [place] [address] 08/30/2023 9:00 AM EST Pharmacy Pharmacy Hematology Oncology [facility], [place] [address] [place] [address] [facility], [facility] Hem/Onc [address] [place] [address] 09/25/2023 9:30 AM EST Laboratory Laboratory [address], [place] [address] [place] [phone] [place] Lab [address] [place] [address] 09/26/2023 10:00 AM EST [facility] [address] [facility], [place] [address] Gemma, Chair 1 Hem Onc [facility] [address] [facility] [place] [address] 10/23/2023 9:30 AM EST Laboratory Laboratory [address] [place] [address] [place] [phone] [place], Lab [address] [place] [address] 10/24/2023 9:15 AM EST Office Visit Hematology/Oncology [facility] 200 [facility], [place] [address] Carlos [facility] [address] [facility] [address] 10/24/2023 9:45 AM EST [facility] [address] [facility], [place] [address] 10/31/2023 10:40 AM EST Office Visit Family Practice [address], [place] [address] [place] [address] Linda Baeza DO [address] [place] [address] 02/06/2024 10:00 AM EDT Nurse Only Ancillary [address], [place] [address] [place] [address] [address] [place], Nurse [facility] [place] [address] [place] [address] Health Maintenance Due Date Last Done Comments [...] this encounter Medical Devices Implanted Type Area Bookkeeping Machine Mechanic Device Identifier Shelf Expiration Date Model / Serial / Lot Intraocular Lens Implanted:Qty: 1 on 01/12/2016 by Amari Loomis MD at OR [facility] Right: Eye 11/06/2018 [id number]+11.0 / [id number] / [id number] documented as of this encounter Visit Diagnoses Diagnosis CLL (chronic lymphocytic leukemia) (HCC)- Primary Chronic lymphoid leukemia, without mention of having achieved remission Hypogammaglobulinemia (HCC) Hypogammaglobulinaemia, unspecified documented in this encounter Advance Directives Latest Code Status on File Code Status Date Activated Date Inactivated Comments Full Code 01/12/2016 9:49 AM 01/12/2016 3:56 PM This or shweta reflects the patients wishes and were consensually agreed upon. Care Teams Calciner Operator Helper Relationship Specialty Start Date End Date Linda Baeza DO [address] [facility] [place] [address] PCP - General Family Medicine 09/11/22 documented as of this encounter"
--- OUTSIDE RECORDS SUMMARY | 2023-08-16 11:33 | External Medical Summary | Summary of Care ---
Author Name Unknown Organization [facility] Address [address] [place] [address] Phone [phone] Care Team Providers Care Social Media Analyst Name Role Phone Deana Baeza DO Primary Care Provider +1- [phone] Reason for Visit * Reason Onset Date Comments Medication Refill Advice 07/22/2023 Mail order pharm acy has requested but patient only has 4 doses left. Please expedite. Encounter Details Date Type Department Care Team Description 07/22/2023 Refill Family [facility] [address] [place] [address] Deana Baeza DO [address] [place], [place] [id number] Moderate persistent asthma without complication Allergies Active Allergy Reactions Severity Noted Date Comments Meperidine Hcl 02/19/2019 Lamotrigine Other (Please comment) Medium 07/19/2021 Causes patient to fall. Rofecoxib 11/06/2004 rash &swelling in legs, stumbling (vioxx) documented as of this encounter (statuses as of 07/23/2023) Medications Medication Sig Dispensed Refills Start Date [...] Capsule Take by mouth daily. 0 Active [place] 3 1000 MG Oral Capsule Take by mouth daily . 0 Active Tylenol PM Extra Strength 500-25 MG Oral Tablet (diphenhydrAMINE-A PAP (sleep)) Take 1 Tablet by mouth 3 times a day as needed for Sleep. 0 Active Saline 0.65 % Nasal Solution Administer 1 [place] into nostril as needed for Congestion. [...] 50 MCG/ACT Nasal Suspension (Flonase) Administer 1 [place] into each nostril every evening. 0 [...] EVERY DAY 180 Each 2 07/23/2023 Active documented as of this encounter (statuses as of 07/23/2023) Active Problems Problem Noted Date Dyslipidemia 09/11/2022 [...] as of this encounter (statuses as of 07/23/2023) Resolved Problems Problem Noted Date Resolved Date Asthma 09/11/2022 09/11/2022 Stage 3 chronic kidney disease 09/11/2022 1 11/12/2021 Stage 3 chronic kidney disease 09/11/2022 1 11/12/2021 CRF (chronic renal failure), stage 3 (moderate) 08/22/2021 04/25/2023 Seizure disorder 12/16/2020 09/11/2022 Asthma, mild persistent 04/30/2013 03/17/20 17 Tuberculosis, treated 07/30/2008 09/11/2022 documented as of this encounter (statuses as of 07/23/2023) Immunizations Name Administration Dates Next Due COVID-19 mRNA, LNP-s, No Pre serve, 2-Dose Series (VytronUS) 06/07/2021,12/14/2020,11/23/2020 COVID-19, LNP-s, No Preserve , William-sucrose, [...] encounter Miscellaneous Notes * Telephone Encounter - Cordell Bahena [facility] - 07/23/2023 9:11 AM EDT Signed Prescriptions: Disp Refills Breo Ellipta 200-25 MCG/ACT Inhalation Aer*180 Ea*2 Sig: INHALE ONE PUFF BY MOUTH EVERY DAY Authorizing Provider: DEANA BAEZA Ordering User: CORDELL BAHENA * Telephone Encounter - Cordell Bahena [facility] - 07/23/2023 9:11 AM EDT Signed Prescriptions: Disp Refills Breo Ellipta 200-25 MCG/ACT Inhalation Aer*180 Ea*2 Sig: INHALE ONE PUFF BY MOUTH EVERY DAY Authorizing Provider: DEANA BAEZA Ordering User: CORDELL BAHENA * Telephone Encounter - ANASTACIA Allred - 07/22/2023 11:04 AM EDT Patient's called. The patient has only 4 doses left and the [facility] mail order pharmacy has requested this. Patient's states the Mail order pharmacy was able to overnight to the home in a previous situation. Patient's wants to use the Mail order if at all possible because of cost. Please call her with any information regarding this. Thank you. documented in this encounter Plan of Treatment Upcoming Encounters Date Type Specialty Care Team Description 07/31/2023 Laboratory Laboratory Jonatan Schneider [facility] [address] [place] [address] 08/01/2023 Office Visit Hematology Oncology Carlos Pierre MD 200 [facility] [place] [address] 08/01/2023 Hem/Onc Treatment Hematology Oncology [place], Chair 8 Hem Onc [facility] [address] 08/28/2023 Office Visit Urology Paul Ha Jr., MD [address] [place] [phone] 08/30/2023 Pharmacy Pharmacy [facility] Hem/Onc [address] [place], [place] [id number] 10/31/2023 Office Visit Family Medicine Deana Baeza DO [address] [place] [address] 02/06/2024 Nurse Only Ancillary [place], Nurse Annual [facility] [place] [address] [place] [address] Health Maintenance Due Date Last Done Comments COVID-19 Vaccine (2022- season) 2023 02/07/2023, 08/10/2022, 02/08/2022, Additional history [...] this encounter Medical Devices Implanted Type Area Compressor Repairer Device Identifier Shelf Expiration Date Model / Serial / Lot Intraocular Lens Implanted:Qty: 1 on 01/12/2016 by Amari Loomis MD at OR [facility] Right: Eye 11/06/2018 [id number] / [id number] / [id number] documented as of this encounter Visit Diagnoses Diagnosis Moderate persistent asthma without complication Unspecified asthma documented in this encounter Advance Directives Latest Code Status on File Code Status Date Activated Date Inactivated Comments Full Code 01/12/2016 9:49 AM 01/12/2016 3:56 PM This or shweta reflects the patients wishes and were consensually agreed upon. Care Teams Social Media Analyst Relationship Specialty Start Date End Date Deana Baeza DO [address] [place] [address] PCP - General Family Medicine 09/11/22 documented as of this encounter
--- OUTSIDE RECORDS SUMMARY | 2023-08-16 11:33 | External Medical Summary ---
Author Name Unknown Address Unknown Organization K01:LABORATORY [facility] [place] - [address] [facility] [address] Laboratory Report Ordering Provider Test Date Status KASSIDY RADFORD 07/31/2023 10:11:26 Final Observation Date Value Abnormality Reference (Units ) Status BUN 07/31/2023 10:11:26 23 Above high normal 6-20 (mg/dL) Final Creatinine 07/31/2023 10:11:26 1.1 0.6-1.2 (mg/dL) Final Glomerular filtration rate/1.73 sq M.predicted [Volume Rate/Area] in Serum, Plasma or Blood by Creatinine-based formula (CKD-EPI) 07/31/2023 10:11:26 73 >=60 (mL/min) Final eGFR is calculated based on the CKD-EPI 2020 equation SODIUM 07/31/2023 10:11:26 136 135-146 (m mol/L) Final Potassium 07/31/2023 10:11:26 4.7 3.5-5.1 (m mol/L) Final Cl 07/31/2023 10:11:26 102 98-107 (mm ol/L) Final CO2 07/31/2023 10:11:26 26 22-32 (mmo l/L) Final Anion gap 07/31/2023 10:11:26 8 7-15 (mmol /L) Final Glucose 07/31/2023 10:11:26 87 70-120 (mg /dL) Final Albumin 07/31/2023 10:11:26 4.1 3.8-5.0 (g /dL) Final AST (Aspartate aminotransferase) 07/31/2023 10:11:26 17 10-50 (U/L) Final Alk Phos 07/31/2023 10:11:26 72 35-130 (U/ L) Final Bilirubin, Total 07/31/2023 10:11:26 0.2 <=1 .2 (mg/dL) Final Calcium 07/31/2023 10:11:26 9.6 8.4-10.2 ( mg/dL) Final Protein 07/31/2023 10:11: 6.0 6.0-8.3 (g /dL) Final ALT (Alanine aminotransferase) 07/31/2023 10:11:26 15 10-50 (U/L) Final Performing Location LABORATORY [facility] - [facility] [address] [facility] [address]
--- OUTSIDE RECORDS SUMMARY | 2023-08-16 11:33 | External Medical Summary ---
Author Name Unknown Address Unknown Organization K01:LABORATORY [facility] [place] - [facility] [address] [facility] [place] [address] Laboratory Report Ordering Provider Test Date Status KASSIDY RADFORD 07/31/2023 10:11:26 Final Observation Date Value Abnormality Reference (Units ) Status WBC, Total 07/31/2023 10:11:26 13.09 Above high normal 4.00-10.80 (K/uL) Final RBC 07/31/2023 10:11:26 3.49 4.50-5.25 (M/uL) Final Hemoglobin 07/31/2023 10:11:26 12.0 Below low normal 14.0-16.8 (g/dL) Final HCT 07/31/2023 10:11:26 36.5 Below low normal 40.0-48.4 (%) Final MCV 07/31/2023 10:11:26 104.6 82.0-99.5 (fL) Final MCH 07/31/2023 10:11:26 34.4 27.0-34.0 (pg) Final MCHC 07/31/2023 10:11:26 32.9 32.0-36.0 (g/dL) Final RDW 07/31/2023 10:11:26 15.1 11.5-15.5 (%) Final Platelets 07/31/2023 10:11:26 147 140-400 (K/uL) Final MPV 07/31/2023 10:11:26 11.2 6.6-11.1 (fL) Final Nucleated erythrocytes/100 leukocytes [Ratio] in Blood by Automated count 07/31/2023 10:11:26 0 <=0 (/100 WBCs) Final Performing Location LABORATORY [facility] [place] - [address] [place] [address]
--- OUTSIDE RECORDS SUMMARY | 2023-08-16 11:33 | External Medical Summary | Summary of Care ---
Author Name Unknown Organization [facility] Address [address] [place] [address] Phone [phone] Care Team Providers Care Police District Switchboard Operator Name Role Phone Linda Baeza DO Primary Care Provider [phone]- [phone] Reason for Visit * Reason Comments Medication Management Encounter Details Date Type Department Care Team Description 07/04/2023 Pharmacy Pharmacy Hematology Oncology [facility] [address] [place], [place] [id number] [facility] [place] [facility] Hem[facility]Onc [address] [place] [address] CLL (chronic lymphocytic leukemia) ([facility])* Allergies Active Allergy Reactions Severity Noted Date Comments Meperidine Hcl 02/19/2019 Lamotrigine Other (Please comment) Medium 07/19/2021 Causes patient to fall. Rofecoxib 11/06/2004 rash &swelling in legs, stumbling (vioxx) documented as of this encounter (statuses as of 07/04/2023) Medications Medication Sig Dispensed Refills Start Date [...] Capsule Take by mouth daily. 0 Active [place] 3 1000 MG Oral Capsule Take by mouth daily . 0 Active Tylenol PM Extra Strength 500-25 MG Oral Tablet (diphenhydrAMINE-A PAP (sleep)) Take 1 Tablet by mouth 3 times a day as needed for Sleep. 0 Active Saline 0.65 % Nasal Solution Administer 1 Noti into nostril as needed for Congestion. 0 [...] 50 MCG/ACT Nasal Suspension (Flonase) Administer 1 Noti into each nostril every evening. 0 07/08/2022 [...] 1 Each by mouth in the morning. [facility]-Per eye doctor for dry [...] as of this encounter (statuses as of 07/04/2023) Active Problems Problem Noted Date Dyslipidemia 09/11/2022 [...] as of this encounter (statuses as of 07/04/2023) Resolved Problems Problem Noted Date Resolved Date Asthma 09/11/2022 09/11/2022 Stage 3 chronic kidney disease 09/11/2022 1 11/12/2021 Stage 3 chronic kidney disease 09/11/2022 1 11/12/2021 CRF (chronic renal failure), stage 3 (moderate) 08/22/2021 04/25/2023 Seizure disorder 12/16/2020 09/11/2022 Asthma, mild persistent 04/30/2013 03/17/20 17 Tuberculosis, treated 07/30/2008 09/11/2022 documented as of this encounter (statuses as of 07/04/2023) Immunizations Name Administration Dates Next Due COVID-19 mRNA, LNP-s, No Pre serve, 2-Dose Series ([employer]) 06/07/2021,12/14/2020,11/23/2020 COVID-19, LNP-s, No Preserve , William-sucrose, [...] as of this encounter Progress Notes * Jovanna Calderon, [facility] - 07/04/2023 8:21 AM EDT MEDICATION THERAPY MANAGEMENT ACALABRUTINIB TREATMENT PROGRESS NOTE Tano Rocha [phone] Patient Phone Numbers : Caitlin Communication: Left message requesting return call to assess toleration to therapy Treatment: Medication: Acalabrutinib ([place]) Indication: CLL Dose: 100 mg BID ( 06/14/22) Administration: +/- food Start Date: 04/30/22 Primary Healthcare Consulting Manager/Oncologist: Dr. Ihsan Pierre Supportive Care Meds: None Prophylactic Meds: N/A Interval History: Per 02/15/22 TE addendum 04/26/22, rifampin discontinued by ID. Pt advised to decrease acalabrutinib to 100mg BID Per TE 05/30/22, Pt restarted rifampin. Pt did not want to start amikacin secondary to CKD. Per OV 06/07/22, allopurinol discontinued to lighten pill burden Per MTM encounter 07/26/22, lab monitoring extended to monthly in conjunction with IVIG infusions Admitted to [facility] 06/27/23-06/30/23 for viral pneumonia Changes to medication list since last visit? No Assessment and Plan: WBC/ALC elevated but stable PLT improving to WNL Iron panel illustrates high ferritin and low TIBC All other labs stable Advised to rest when needed, work when able, not take on too many projects, and contact office if fatigue affecting QoL or ADLs Continue current therapy and monthly labs (next due with OV) Assessment of compliance: N/A Assessment of adverse effects attributed to drug therapy: N/A Dose adjustment needed based on lab or adverse drug reaction? No Follow up: 4 weeks OV/labs; 8 weeks MTM Jovanna Calderon, PharmD, BCOP Clinical Pharmacist, [facility] Oral Chemotherapy [facility] 07/04/2023, 1:53 PM Pertinent Labs: Latest Reference Range & Units 05/08/23 09:06/05/23 09:07/03/23 10:00 WBC 4.00 - 10.80 K/uL 16.02 (H) 16.34 (H) 15.50 (H) HGB 14.0 - 16.8 g/dL 13.1 (L) 12.5 (L) 12.5 (L) HCT 40.0 - 48.4 % 40.1 39.3 (L) 38.0 (L) MCV 82.0 - 99.5 fL 106.1 105.6 103.5 PLT 140 - 400 K/uL 108 (L) 118 (L) 206 Absolute Neutrophils 1.80 - 7.70 K/uL 1.92 2.12 3.72 Latest Reference Range & Units 07/03/23 10:00 Iron 45 - 176 ug/dL 67 Iron Binding Capacity 250 - 425 ug/dL 219 (L) Transferrin Saturation Percent 15 - 55 % 31 Ferritin 30 - 400 ng/mL 581 (H) Serum creatinine: 1 mg/dL 07/03/23 1000 Estimated creatinine clearance: 60.4 mL/min Latest Reference Range & Units 05/08/23 09:06/05/23 09:07/03/23 10:00 Albumin 3.8 - 5.0 g/dL 4.4 4.3 3.9 AST 10 - 50 U/L 21 22 16 ALT 10 - 50 U/L 18 18 19 Alkaline Phosphatase 35 - 130 U/L 74 63 65 Bilirubin, Total <=1.2 mg/dL 0.2 0.3 <0.2 Latest Reference Range & Units 05/08/23 09:06/05/23 09:07/03/23 10:00 IgA 70 - 400 mg/dL 42 (L) 44 (L) 49 (L) IgG 700 - 1,600 mg/dL 685 (L) 855 830 IgM 40 - 230 mg/dL 4 (L) <5 (L) <5 (L) Time Spent on Encounter: 6 - 10 minutes Encounter Group: Hematology Encounter Interventions Item Category: Oral Chemotherapy Acalabrutinib Problem/Rationale: Safety: Needs additional monitoring - Medication Requires monitoring Pharmacist Intervention(s): Lab monitoring Magnitude of Intervention: Monitoring with direction (Level 1) documented in this encounter Plan of Treatment Upcoming Encounters Date Type Specialty Care Team Description 07/10/2023 Office Visit Family Medicine Linda Baeza DO [address] [place] [address] 07/31/2023 Laboratory Laboratory Jonatan Schneider [address] [place] [address] [place] [address] 08/01/2023 Office Visit Hematology Oncology Carlos Pierre MD [address] [place] [address] 08/01/2023 Hem/Onc Treatment Hematology Oncology [place], Chair 8 Hem Onc [facility] [address] [place] [address] 08/28/2023 Office Visit Urology Paul Ha Jr., MD 27 [facility] [address] [place] [address] 08/30/2023 Pharmacy Pharmacy [facility] [place] [facility] Hem[facility]c [facility] [place] [address] 10/31/2023 Office Visit Family Medicine Linda Baeza DO [address] [place] [address] 02/06/2024 Nurse Only [facility], Nurse Annual Well[facility] [address] [place] [address] Health Maintenance Due Date Last Done Comments [...] this encounter Medical Devices Implanted Type Area Manager Care Device Identifier Shelf Expiration Date Model / Serial / Lot Intraocular Lens Implanted:Qty: 1 on 01/12/2016 by Amari Loomis MD at OR [facility] Right: Eye 11/06/2018 MX60+11.0 / [id number] / [id number] documented as of this encounter Visit Diagnoses Diagnosis CLL (chronic lymphocytic leukemia) (HCC)- Primary Chronic lymphoid leukemia, without mention of having achieved remission documented in this encounter Advance Directives Latest Code Status on File Code Status Date Activated Date Inactivated Comments Full Code 01/12/2016 9:49 AM 01/12/2016 3:56 PM This or shweta reflects the patients wishes and were consensually agreed upon. Care Teams Police District Switchboard Operator Relationship Specialty Start Date End Date Linda Baeza DO [address] [place] [address] PCP - General Family Medicine 09/11/22 documented as of this encounter
--- OUTSIDE RECORDS SUMMARY | 2023-08-16 11:33 | External Medical Summary | Summary of Care ---
Author Name Unknown Organization [facility] Address [address] [place] [address] Phone [phone] Care Team Providers Care Mail Truck Driver Name Role Phone Linda Baeza DO Primary Care Provider +1- [phone] Reason for Visit * Reason Comments IV Therapy Privigen * Episode Based Medications (Routine) - Authorized Specialty Diagnoses / Procedures Referred By Soham t Referred To Contact Diagnoses CLL (chronic lymphocytic leukemia) (HCC) Hypogammaglobulinemia (HCC) Procedures NM INJ IVIG PRIVIGEN 500 MG Carlos Pierre MD [address] [place] [address] Anc Hem/Onc [address] [place] [address] Referral ID Status Reason Start Date Expiration Date V isits Requested Visits Authorized [id number] Authorized 05/14/2023 11/15/2023 99 99 Encounter Details Date Type Department Care Team (Latest Contact Info) Description 08/01/2023 9:15 AM EDT Hem/Onc Treatment Hematology/Oncology Treatment, [place] [address] [place] [address] [place] Chair 8 Hem Onc [facility] [address] [facility] [place] [address] CLL (chronic lymphocytic leukemia) (HCC)*; Hypogammaglobulinem ia (HCC) Allergies Active Allergy Reactions Criticality Noted [...] Capsule Take by mouth daily. 0 Active [place] 3 1000 MG Oral Capsule Take by mouth daily . 0 Active Tylenol PM Extra Strength 500-25 MG Oral Tablet (diphenhydrAMINE-A PAP (sleep)) Take 1 Tablet by mouth 3 times a day as needed for Sleep. 0 Active Saline 0.65 % Nasal Solution Administer 1 [place] into nostril as needed for Congestion. 0 [...] 50 MCG/ACT Nasal Suspension (Flonase) Administer 1 [place] into each nostril every evening. 0 07/08/2022 [...] mRNA, LNP-s, No Pre serve, 2-Dose Series ([employer]) 06/07/2021,12/14/2020,11/23/2020 COVID-19, LNP-s, No Preserve , William-sucrose, Ages 12+ (Pfizer) 02/08/2022 COVID-19, mRNA, LNP-s, PF, B ooster, 100mcg/0.5mg (Moderna) 02/07/2023,08/02/2021 Covid-19, Mrna, Lnp-s, Pf, B ivalent, 30 Mcg, IM, 12 yrs and above ([employer]) 08/10/2022 Pneumococcal Conjugate Vacc, 13 Valent (Prevnar) [...] No 09/08/2014 documented as of this encounter Nursing Notes * Gena Potts RN - 08/01/2023 1:44 PM EDT Functional status at today's visit: Fully active, able to carry on all pre-disease performance without restriction The drug name, dose, infusion volume, rate and route of administration, expiration date and time, appearance and physical integrity of the drug and rate set on the pump and sequencing of drug administration (as applicable) were verified by me and second sign-in RN. Patient was assessed for symptoms or adverse side effects during treatment. Goals: Patient will remain free from injury. Possible barriers to meeting goals: ambulation with IV pole, benadryl pretreat may cause drowsiness Stability of the patient: Moderately stable - low risk of patient condition declining or worsening Summary regarding today's goals: Met: Pt remained free of injury today. Patient tolerated treatment well and was discharged in stable condition. Coverage by Terence Botello LPN and Terence Jamison RN. * Gena Potts RN - 08/01/2023 9:59 AM EDT Chair 10 Pt was seen by Dr Pierre today, see office notes. Will proceed with privigen as planned. IV started in the left forearm by Terence Botello LPN without difficulty, good blood return noted, flushed with NSS, fluids infusing. Safety and Risk for Injury Patient will remain free from injury. Ensure appropriate safety devices are available. Provide and maintain safe environment. documented in this encounter Plan of Treatment Upcoming Encounters Date Type Department Care Team (Late st Contact Info) Description 08/23/2023 11:00 AM EST Telemedicine Infectious Disease [address] [address] Ector Polo, DO [address] [place] [address] 08/27/2023 9:30 AM EST Laboratory Laboratory [place] [address] [place] [phone] Jonatan Schneider [address] [address] [place] [id number] 08/28/2023 10:45 AM EST Office Visit Urology Ghada Fraser [address] [place] [address] Paul Ha Jr., MD [address] [place] [address] 08/28/2023 1:00 PM EST Hem/Onc Treatment Hematology/Oncology Treatment, [place] 200 [facility] [place] [address] Gem[place], Chair 2 Hem Onc [address] [facility] [place] [address] 08/30/2023 9:00 AM EST Pharmacy Pharmacy Hematology Oncology [place] [address] [place] [address] [facility] [place] Hem/Onc [facility] [place] [place] [address] 09/25/2023 9:30 AM EST Laboratory Laboratory [address], [place] [address] [place] [phone] [address] [place] [address] 09/26/2023 10:00 AM EST Hem/Onc Treatment Hematology/Oncology Treatment, [place] 200 [facility], [place] [address] [place], Chair 1 Hem Onc [address] [place] [address] 10/23/2023 9:30 AM EST Laboratory Laboratory [address], [place] [address] [place] [phone] [place] [place] [address] 10/24/2023 9:15 AM EST Office Visit Hematology/Oncology Junior Menendez [place] 200 [facility] [place] [address] Carlos Pierre MD 200 [facility] [place] [address] 10/24/2023 9:45 AM EST Hem/Onc Treatment Hematology/Oncology Treatment, [place] 200 [facility] [place] [address] 10/31/2023 10:40 AM EST Office Visit Family Practice [address], [place] [address] [place] [address] Linda Baeza DO [address] [place] [address] 02/06/2024 10:00 AM EDT Nurse Only Ancillary [address], [place] [address] [place] [address] [place], Nurse Annual Wellness Cold [address] [place] [address] Health Maintenance Due Date Last Done Comments [...] this encounter Medical Devices Implanted Type Area Second Rigger Device Identifier Shelf Expiration Date Model / Serial / Lot Intraocular Lens Implanted:Qty: 1 on 01/12/2016 by Amari Loomis MD at OR [facility] Right: Eye 11/06/2018 MX60+11.0 / [id number] / [id number] documented as of this encounter Visit Diagnoses Diagnosis CLL (chronic lymphocytic leukemia) (HCC)- Primary Chronic lymphoid leukemia, without mention of having achieved remission Hypogammaglobulinemia (HCC) Hypogammaglobulinaemia, unspecified documented in this encounter Administered Medications Active Administered Medications - up to 3 most recent administrations Medication Order MAR Action Action Date Dose Rate Site Acetaminophen (Tylenol) tab 650 mg 650 mg, Oral, ONCE PRN If previous infusion reaction with IVIG, Starting on Andreina 08/01/23 at 1015, Until Discontinued, Maximum of 4 grams (4000 mg) per day. Given 08/01/2023 9:22 AM EDT 650 mg diphenhydrAMINE (Benadryl) cap 25 mg 25 mg, Oral, ONCE PRN If previous infusion reaction with IVIG, Starting on Andreina 08/01/23 at 1015, Until Discontinued Given 08/01/2023 9:22 AM EDT 25 mg diphenhydrAMINE (Benadryl) inj 50 mg 50 mg, IV Push, ONCE PRN Other, Hypersensitivity Reaction, Starting on Andreina 08/01/23 at 0914, Until Sat08/02/23 at 0913, For 24 hours EPINEPHrine 1 MG/ML inj 0.3 mg 0.3 mg, Intramuscular, ONCE PRN Other, Hypersensitivity Reaction or Anaphylaxis, Starting on Andreina 08/01/23 at 0914, Until Sat08/02/23 at 0913, For 24 hours hEParin 100 UNIT/ML Lock Flush inj 500 Units 500 Units (5 mL), IV Lock, PRN Other, IV Flush, Starting on Andreina 08/01/23 at 0914, Until Sat08/02/23 at 0913, For 24 hours, Do not flush if lock, PICC, or central line not in place; IV infusing or unable to flush. Hydrocortisone Sod Suc (PF) (Solu-Cortef) inj 100 mg 100 mg, IV Push, ONCE PRN Other, Hypersensitivity Reaction, Starting on Sat08/01/23 at 0914, Until Sat08/02/23 at 0913, For 24 hours NSS infusion 500 mL, Intravenous, at 50 mL/hr, CONTINUOUS, Starting on Sat08/01/23 at 1015, Until Sat08/01/23 at 2014 Start Infusion 08/01/2023 9:25 AM EDT 500 mL 50 mL/hr sodium chloride 0.9 % flush central line 10 mL 10 mL, IV Push, PRN Other, IV Flush, Starting on Sat08/01/23 at 0914, Until Sat08/02/23 at 0913, For 24 hours, Do not flush if lock, PICC, or central line not in place; IV infusing or unable to flush. Inactive Administered Medications - up to 3 most recent administrations Medication Order MAR Action Action Date Dose Rate Site Immune Globulin Human- IVIG 10% (Privigen) IV 20 g 20 g, IV Piggyback, ONCE, 1 dose, On Sat08/01/23 at 1145, PRIVIGEN infusion instructions Infusion Rate VTBI 0.005 mL/kg/min = 22 mL/hour for 15 minutes 5 mL 0.01 mL/kg/min = 44 mL/hour for 15 minutes 11 mL 0.02 mL/kg/min = 88 mL/hour for 15 minutes 22 mL 0.04 mL/kg/min = 175 mL/hour for 15 minutes 44 mL 0.08 mL/kg/min = 350 mL/hour Use this rate until finished 218 mL Infusion duration = 1.6 hours. Vial 2 of 2 All subsequent vials will start at the ending rate of the previous vial Start Infusion 08/01/2023 10:58 AM EDT 20 g 350 mL/hr Immune Globulin Human-IVIG 10% (Privigen) IV 10 g 10 g, IV Piggyback, ONCE, 1 dose, On Sat08/01/23 at 1045, PRIVIGEN infusion instructions Infusion Rate VTBI 0.005 mL/kg/min = 22 mL/hour for 15 minutes 5 mL 0.01 mL/kg/min = 44 mL/hour for 15 minutes 11 mL 0.02 mL/kg/min = 88 mL/hour for 15 minutes 22 mL 0.04 mL/kg/min = 175 mL/hour for 15 minutes 44 mL 0.08 mL/kg/min = 350 mL/hour Use this rate until finished 218 mL Infusion duration = 1.6 hours. Vial 1 of 2 All subsequent vials will start at the ending rate of the previous vial Rate Change 08/01/2023 10:52 AM EDT 350 mL/hr Rate Change 08/01/2023 10:37 AM EDT 175 mL/hr Rate Change 08/01/2023 10:20 AM EDT 88 mL/hr documented in this encounter Advance Directives Latest Code Status on File Code Status Date Activated Date Inactivated Comments Full Code 01/12/2016 9:49 AM 01/12/2016 3:56 PM This or shweta reflects the patients wishes and were consensually agreed upon. Care Teams Mail Truck Driver Relationship Specialty Start Date End Date Linda Baeza DO [address] [facility] [place] [address] PCP - General Family Medicine 09/11/22 documented as of this encounter
--- OUTSIDE RECORDS SUMMARY | 2023-08-16 11:33 | External Medical Summary | Summary of Care ---
Author Name Unknown Organization [facility] Address [address] [place] [address] Phone [phone] Care Team Providers Care Software Engineer Web Applications Name Role Phone Linda Baeza DO Primary Care Provider [phone]- [phone] Reason for Visit * Reason Onset Date Comments Hospital Follow-Up [facility] from 06/27-06/30 for pneumonia. Discharge papers from hospital says to follow up with PCP as far as any activity restrictions. Following with infectious disease. 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 Rofecoxib 11/06/2004 rash &swelling in legs, stumbling (vioxx) documented as of this encounter (statuses as of 07/10/2023) Medications Medication Sig Dispensed Refills Start Date End Date Status NATURAL SUPPLEMENTIndicat ions:Syncope and collapse vinegar/honey daily 0 0 07/12/2005 [...] Capsule Take by mouth daily. 0 Active Sheridan 3 1000 MG Oral Capsule Take by mouth daily . 0 Active Tylenol PM Extra Strength 500-25 MG Oral Tablet (diphenhydrAMINE- APAP (sleep)) Take 1 Tablet by mouth 3 times a day as needed for Sleep. 0 Active Saline 0.65 % Nasal Solution Administer 1 [place] into nostril as needed for Congestion. 0 Active CoQ10 100 MG Oral Capsule Take by mouth . 0 Active Ethambutol HCl 400 MG Oral Tablet (Myambutol) Take by mouth 4 Tablets once a day on Saturday, Saturday, and Saturday only . 144 Tablet 3 07/09/2022 Active Acalabrutinib 100 MG Oral Capsule (Calquence)Indica tions:CLL (chronic lymphocytic leukemia) ([facility]) Take by mouth 100 mg 2 times a day . With or without food 60 Capsule 5 07/09/2022 Active Fluticasone Propionate 50 MCG/ACT Nasal Suspension (Flonase) Administer 1 Mar[place] into each nostril every evening. 0 07/08/2022 Active Benefiber Drink Mix Oral Packet Take 1 Dose by mouth every evening. 0 Active Privigen 40 GM/400ML Intravenous Solution (Immune Globulin Human-IVIG 10%) Administer 40 g intravenously Every Month. Every 28 days 0 Active Fluticasone Furoate-Vilantero l 200-25 MCG/ACT Inhalation Aerosol Powder Breath Activated (BREO ellipta)Indicatio ns:Moderate persistent asthma without complication INHALE 1 INHALATION [...] Saturday only. 24 Capsule 0 06/10/2023 Active Zinc Acetate 50 MG Oral Capsule Take 50 mg by mouth in the morning. 0 06/27/2023 Active guaiFENesin ER 600 MG Oral Tablet Extended Release 12 Hour Take 1 Tablet by mouth in the morning and 1 Tablet before bedtime. 0 06/30/2023 Active Levalbuterol HCl 1.25 MG/3ML Inhalation Nebulization Solution (Xopenex)Indicati ons:Viral pneumonia Inhale 1 Ampule via nebulizer every 4 hours as needed for Wheezing. 72 mL 5 07/02/2023 Active predniSONE 10 MG Oral Tablet (Deltasone) Take 3 Tablets by mouth in the morning. 0 06/30/2023 3 Discontinu ed(End of Procedure) documented as of this encounter (statuses as of 07/10/2023) Active Problems Problem Noted Date Dyslipidemia 09/11/2022 [...] as of this encounter (statuses as of 07/10/2023) Resolved Problems Problem Noted Date Resolved Date Asthma 09/11/2022 09/11/2022 Stage 3 chronic kidney disease 09/11/2022 1 11/12/2021 Stage 3 chronic kidney disease 09/11/2022 1 11/12/2021 CRF (chronic renal failure), stage 3 (moderate) 08/22/2021 04/25/2023 Seizure disorder 12/16/2020 09/11/2022 Asthma, mild persistent 04/30/2013 03/17/20 17 Tuberculosis, treated 07/30/2008 09/11/2022 documented as of this encounter (statuses as of 07/10/2023) Immunizations Name Administration Dates Next Due COVID-19 [...] Sign Reading Time Taken Comments Blood Pressure 122/54 07/10/2023 1:57 PM EDT Pulse 66 07/10/2023 1:57 PM EDT Temperature 36.6 C (97.9 F) 07/10/2023 1:57 PM ED T Respiratory Rate 18 07/10/2023 1:57 PM EDT Oxygen Saturation 96% 07/10/2023 1:57 PM EDT Inhaled Oxygen Concentration - - Weight 68.9 kg (152 lb) 07/10/2023 1:57 PM EDT Height 177.8 cm (5' 10") 07/10/2023 1:57 PM EDT Body Mass Index 21.81 07/10/2023 1:57 PM EDT documented in this [...] as of this encounter Progress Notes * Linda Baeza, DO - 07/10/2023 1:56 PM EDT SUBJECTIVE: Tano Rocha is a 78 year old male. Chief Complaint Patient presents with Hospital Follow-Up [facility] from 06/27-06/30 for pneumonia. Discharge papers from hospital says to follow up with PCP as far as any activity restrictions. Following with infectious disease. Hospital Follow-Up Recent Admission: Patient was recently admitted to [facility]. The date of discharge was 06/10/23. Discharge report received and reviewed. HPI: 70-year-old male here today for hospital followup Chart reviewed Patient was seen in [facility] emergency room, initially diagnosed with viral pneumonia, at that time patient went home, returned a couple days later with worsening shortness of breath He was admitted at that time, seen by infectious disease, pulmonology and Hematology He was given breathing treatments Overall patient improved, discharged home Overall he is feeling better, he had a CT scan done as well as a sputum culture obtained to check up on his mycobacterium avium He does have follow-up with Infectious Disease, would like to get off of his chronic antibiotics ifat all possible He is interested in getting his COVID booster as well as RSV which he will get at the pharmacy His flu vaccine is up-to-date His pneumonia vaccines are up-to-date He is interested in increasing his activity Patient Active Problem List Diagnosis Code BPH without obstruction/lower urinary tract symptoms N40.0 Asthma, moderate persistent J45.40 CLL (chronic lymphocytic leukemia) ([facility]) C91.10 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 Sheridan 3 1000 MG Oral Capsule Take by mouth daily . Tylenol PM Extra Strength 500-25 MG Oral Tablet (diphenhydrAMINE-APAP (sleep)) Take 1 Tablet by mouth 3 times a day as needed for Sleep. Saline 0.65 % Nasal Solution Administer 1 [place] into nostril as needed for Congestion. CoQ10 [...] 50 MCG/ACT Nasal Suspension (Flonase) Administer 1 [place] into each nostril every evening. Benefiber Drink [...] Saturday, and Saturday only. 24 Tablet 3 rifAMPin 300 MG Oral Capsule (Rifadin) Take 2 Capsules by mouth once a day on Saturday, Saturday, and Saturday only. 24 Capsule 0 Zinc Acetate 50 MG Oral Capsule Take 50 mg by mouth in the morning. guaiFENesin ER 600 MG Oral Tablet Extended Release 12 Hour Take 1 Tablet by mouth in the morning and 1 Tablet before bedtime. Levalbuterol HCl 1.25 MG/3ML Inhalation Nebulization Solution (Xopenex) Inhale 1 Ampule via nebulizer every 4 hours as needed for Wheezing. 72 mL 5 No current facility-administered medications for this visit. Current and discharge medications have been reconciled. Review of patient's allergies indicates: Allergen Reactions Lamictal [Lamotrigine] Other (Please comment) Causes patient to fall. Demerol [Meperidine Hcl] Rofecoxib rash &swelling in legs, stumbling (vioxx) OBJECTIVE: BP 122/54 | Pulse 66 | Temp 36.6 C (97.9 F) | Resp 18 | Ht 1.778 m (5' 10") | Wt 68.9 kg (152 lb) | SpO2 96% | BMI 21.81 kg/m | BSA 1.84 m REVIEW OF SYSTEMS: PHYSICAL EXAM: BP 122/54 | Pulse 66 | Temp 36.6 C (97.9 F) | Resp 18 | Ht 1.778 m (5' 10") | Wt 68.9 kg (152 lb) | SpO2 96% | BMI 21.81 kg/m | BSA 1.84 m Physical Exam Vitals and nursing note reviewed. Constitutional: General: He is not in acute distress. Appearance: Normal appearance. He is not ill-appearing or diaphoretic. HENT: Head: Normocephalic and atraumatic. Cardiovascular: Rate and Rhythm: Normal rate and regular rhythm. Heart sounds: Normal heart sounds. No murmur heard. Pulmonary: Effort: Pulmonary effort is normal. No respiratory distress. Breath sounds: Normal breath sounds. No wheezing, rhonchi or rales. Musculoskeletal: Cervical back: Neck supple. Right lower leg: No edema. Left lower leg: No edema. Skin: General: Skin is warm and dry. Neurological: Mental Status: He is alert and oriented to person, place, and time. Psychiatric: Mood and Affect: Mood normal. Behavior: Behavior normal. 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 | For: Keep scheduled appointment Linda Baeza DO documented in this encounter Nursing Notes * Erendira Rider LPN - 07/10/2023 1:58 PM EDT Chief Complaint Patient presents with Hospital Follow-Up [facility] from 06/27-06/30 for pneumonia. Discharge papers from hospital says to follow up with PCP as far as any activity restrictions. Following with infectious disease. Hospital Follow-Up documented in this encounter Plan of Treatment Upcoming Encounters Date Type Specialty Care Team Description 07/31/2023 Laboratory Laboratory Jonatan Schneider [facility] [address] [place] [address] 08/01/2023 Office Visit Hematology Oncology Carlos Pierre MD [address] [facility] [address] 08/01/2023 Hem/Onc Treatment Hematology Oncology [place], [address] Hem Onc [address] [place] [address] 08/28/2023 Office Visit Urology Paul Ha Jr., MD [address] [address] 08/30/2023 Pharmacy Pharmacy [facility], [facility] Hem/Onc [address] [place] [address] 10/31/2023 Office Visit Family Medicine Linda Baeza DO [address] [place] [address] 02/06/2024 Nurse Only [facility], Nurse [facility] [address] [place] [address] Health Maintenance Due Date Last Done Comments [...] this encounter Medical Devices Implanted Type Area Shoe Stitcher Odd Device Identifier Shelf Expiration Date Model / Serial / Lot Intraocular Lens Implanted:Qty: 1 on 01/12/2016 by Amari Loomis MD at [facility] Right: Eye 11/06/2018 [id number] / [id number] / [id number] documented as of this encounter Visit Diagnoses Diagnosis Hospital discharge follow-up- Primary Other follow-up examination Parainfluenzal pneumonia Pneumonia due to parainfluenza virus LULI (mycobacterium avium-intracellulare) ([facility]) 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 Care Teams Software Engineer Web Applications Relationship Specialty Start Date End Date Linda Baeza DO [address] [facility] [place] [address] PCP - General Family Medicine 09/11/22 documented as of this encounter
--- OUTSIDE RECORDS SUMMARY | 2023-08-16 11:33 | External Medical Summary ---
Author Name Unknown Address Unknown Organization K01:LAB[facility]ATORY [facility] [place] - [address] [facility] [address] Laboratory Report Ordering Provider Test Date Status KASSIDY RADFORD 07/31/2023 10:11:26 Final Observation Date Value Abnormality Reference (Units ) Status SYNC LEUKOCYTES IN BLOOD BY AUTOMATED COUNT 07/31/2023 10:11: 13.09 Above high normal 4.00-10.80 (K/uL) Final Neutrophils/100 leukocytes in Blood by Manual count 07/31/2023 10:11: 19.0 Below low normal 40.0-75.0 (%) Final Lymphocytes/100 leukocytes in Blood by Manual count 07/31/2023 10:11:26 77.0 Above high normal 18.0-42.0 (%) Final Known CLL.
Monocytes/100 leukocytes in Blood by Manual count 07/31/2023 10:11:26 2.0 1.0-11.0 (%) Final Eosinophils/100 leukocytes in Blood by Manual count 07/31/2023 10:11:26 2.0 0.0-6.0 (%) Final Neutrophils [#/volume] in Blood by Manual count 07/31/2023 10:11: 2.49 1.80-7.70 (K/uL) Final Lymphocytes [#/volume] in Blood by Manual count 07/31/2023 10:11:26 10.08 Above high normal 1.00-4.80 (K/uL) Final Monocytes [#/volume] in Blood by Manual count 07/31/2023 10:11:26 0.26 0.00-1.10 (K/uL) Final Eosinophils [#/volume] in Blood by Manual count 07/31/2023 10:11:26 0.26 0.00-0.70 (K/uL) Final Variant lymphocytes [Presence] in Blood by Light microscopy 07/31/2023 10:11:26 Present Abnormal None Seen Final Smudge cells [Presence] in Blood by Light microscopy 07/31/2023 10:11:26 Present Abnormal None Seen Final Performing Location LABORATORY [facility] - [address] [facility] [address]
--- OUTSIDE RECORDS SUMMARY | 2023-08-16 11:34 | External Medical Summary | Summary of Care ---
Author Name Unknown Organization [facility] Address [address] [place] [address] Phone [phone] Care Team Providers Care Collateral Clerk Name Role Phone Linda Baeza DO Primary Care Provider [phone]- [phone] Reason for Visit * Reason Onset Date Comments Med Request 07/02/2023 case management 07/02/2023 Encounter Details Date Type Department Care Team Description 07/02/2023 Telephone Hematology/Oncology [facility] [place] [address] [place] [address] Carlos Pierre MD [address] [place] [address] Med Request; case management Allergies Active Allergy Reactions Severity Noted Date Comments Meperidine Hcl 02/19/2019 Lamotrigine Other (Please comment) Medium 07/19/2021 Causes patient to fall. Rofecoxib 11/06/2004 rash &swelling in legs, stumbling (vioxx) documented as of this encounter (statuses as of 07/02/2023) Medications Medication Sig Dispensed Refills Start Date [...] Capsule Take by mouth daily. 0 Active [place] 3 1000 MG Oral Capsule Take by mouth daily . 0 Active Tylenol PM Extra Strength 500-25 MG Oral Tablet (diphenhydrAMINE-A PAP (sleep)) Take 1 Tablet by mouth 3 times a day as needed for Sleep. 0 Active Saline 0.65 % Nasal Solution Administer 1 Abrams into nostril as needed for Congestion. 0 [...] 50 MCG/ACT Nasal Suspension (Flonase) Administer 1 Abrams into each nostril every evening. 0 07/08/2022 [...] 1 Tablet before bedtime. 0 06/30/2023 Active documented as of this encounter (statuses as of 07/02/2023) Active Problems Problem Noted Date Dyslipidemia 09/11/2022 [...] as of this encounter (statuses as of 07/02/2023) Resolved Problems Problem Noted Date Resolved Date Asthma 09/11/2022 09/11/2022 Stage 3 chronic kidney disease 09/11/2022 1 11/12/2021 Stage 3 chronic kidney disease 09/11/2022 1 11/12/2021 CRF (chronic renal failure), stage 3 (moderate) 08/22/2021 04/25/2023 Seizure disorder 12/16/2020 09/11/2022 Asthma, mild persistent 04/30/2013 03/17/20 17 Tuberculosis, treated 07/30/2008 09/11/2022 documented as of this encounter (statuses as of 07/02/2023) Immunizations Name Administration Dates Next Due COVID-19 mRNA, LNP-s, No Pre serve, 2-Dose Series (Yeahka) 06/07/2021,12/14/2020,11/23/2020 COVID-19, LNP-s, No Preserve , William-sucrose, [...] Miscellaneous Notes * Telephone Encounter - Felicitas Sharma RN - 07/02/2023 1:02 PM EDT Received PC from spouse, Caitlin, who reports she still hasn't heard form DME regarding Nebulizer and no update from pharmacy regarding Levalbuterol order. PC to pharmacy, no new order received. PC to [facility] requesting an update. Received a return call from Teresa with tabulate with copay information to pass on to Caitlin. PC to PCP office, spoke with Letitia for assistance in obtaining an order for pt. PC to Caitlin to update her on above. Agreeable to call tabulate to discuss further andarrange copay. Received a voicemail from Caitlin reporting that she was able to speak with [employer] to arrange delivery after given payment information for copay. Requesting a call back regarding any updates on Levalbuterol order. Felicitas Sharma RN, MSN Vinyl Installer [facility] [phone] * Telephone Encounter - Franca Skaggs RN - 07/02/2023 12:19 PM EDT Patients appt with our office is 08/01/23. This should be prescribed by PCP's office. Will route toPCP. * Telephone Encounter - ANASTACIA Rae - 07/02/2023 11:46 AM EDT Pt's [facility] nurse manager case Felicitas Singer calling about patient's new order for levalbuterol. Patient's pharmacy had only gotten an order for the concentrated amount and they are unable to provide the saline to mix with. But they do have the diluted dose in stock but would need a new prescription for it. The dose would be for 1.25 per 3 mL. Pt's PCP unwilling to prescribe unless seen firstand he does not have hospital f/u with PCP until next week. Having some breathing difficulty because he was hospitalized with pneumonia and medication was initially prescribed by hospitalist Dr. Chu from [facility]. Pt has also not been seen in pulmonary medicine for several years so they would be unable to prescribe as well. partnership development manager asking if Dr. Pierre would be willing to prescribe this medication and send it to [facility] pharmacy in [place]. Please call Felicitas Singer to advise, documented in this encounter Plan of Treatment Upcoming Encounters Date Type Specialty Care Team Description 07/03/2023 Laboratory Laboratory Jonatan Schneider [address] [place] [address] 07/04/2023 Pharmacy Pharmacy [facility], [facility] Hem/Onc [address] [place] [address] 07/04/2023 Hem/Onc Treatment Hematology Oncology 07/10/2023 Office Visit Family Medicine Linda Baeza DO [address] [facility] [place] [address] 07/31/2023 Laboratory Laboratory [facility] [address] [place] [address] 08/01/2023 Office Visit Hematology Oncology Carlos Pierre MD [address] [place], [place] [address] [address] 08/01/2023 Hem/Onc Treatment Hematology Oncology [address] Hem Onc [facility] [address] [facility] [place] [address] 08/28/2023 Office Visit Urology [place] Carlos, Paul Bates MD [address] [facility] [address] [place] [address] 10/31/2023 Office Visit Family Medicine Linda Baeza DO [address] [place] [address] 02/06/2024 Nurse Only [facility] [place], Nurse [facility] [address] [place] [address] Health Maintenance Due Date Last Done Comments [...] this encounter Medical Devices Implanted Type Area Program Manager Device Identifier Shelf Expiration Date Model / Serial / Lot Intraocular Lens Implanted:Qty: 1 on 01/12/2016 by Amari Loomis MD at OR [facility] Right: Eye 11/06/2018 [id number] / [id number] / [id number] documented as of this encounter Advance Directives Latest Code Status on File Code Status Date Activated Date Inactivated Comments Full Code 01/12/2016 9:49 AM 01/12/2016 3:56 PM This or shweta reflects the patients wishes and were consensually agreed upon. Care Teams Collateral Clerk Relationship Specialty Start Date End Date Linda Baeza DO [address] [facility] [place] [address] PCP - General Family Medicine 09/11/22 documented as of this encounter
--- OUTSIDE RECORDS SUMMARY | 2023-08-16 11:34 | External Medical Summary | Summary of Care ---
Author Name Unknown Organization [facility] Address [address] [place] [address] Phone [phone] Care Team Providers Care Car Rental Manager Name Role Phone Linda Baeza DO Primary Care Provider +1- [phone] Reason for Visit * Reason Onset Date Comments case management 07/02/2023 Encounter Details Date Type Department Care Team Description 07/02/2023 Telephone Care Coordination [address], [place] [id number] Felicitas Sharma RN [address] [place] [address] case management Allergies Active Allergy Reactions Severity [...] Capsule Take by mouth daily. 0 Active [place] 3 1000 MG Oral Capsule Take by mouth daily . 0 Active Tylenol PM Extra Strength 500-25 MG Oral Tablet (diphenhydrAMINE-A PAP (sleep)) Take 1 Tablet by mouth 3 times a day as needed for Sleep. 0 Active Saline 0.65 % Nasal Solution Administer 1 Edward into nostril as needed for Congestion. 0 [...] 50 MCG/ACT Nasal Suspension (Flonase) Administer 1 Edward into each nostril every evening. 0 07/08/2022 [...] 1 Each by mouth in the morning. 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 [...] mRNA, LNP-s, No Pre serve, 2-Dose Series ([employer]) 06/07/2021,12/14/2020,11/23/2020 COVID-19, LNP-s, No Preserve , William-sucrose, Ages 12+ ([employer] [place]) 02/08/2022 COVID-19, mRNA, LNP-s, PF, B ooster, [...] Miscellaneous Notes * Telephone Encounter - Felicitas Devora Sharma RN - 07/02/2023 11:07 AM EDT Note created on 07/01/23 with CM comp assessment. Unable to locate original note in [facility], copying original note here for reference: CM comp assess: [facility] to home. Admitted 06/27/23-06/30/23 . Dx: Viral Pneumonia. Assigned Patient Tier: 2 Connected with patient's , Caitlin, with pt's permission via phone. Verified patient name/. Advised patient that call is being recorded for quality and training purposes. Assessment: Caitlin noted the following: Caitlin, spouse and auth rep on file, reports that pt was having more difficulty with his respiratory status. PMH includes Asthma, MAC, CLL. Pt diagnosed with viral pneumonia and d/c to home with script for nebulizer, new meds. Med rec via paper review, EMR updated. Lives in a two-story home with Caitlin. No DME used at this time. Independent in ADL'S/IADL'S and Caitlin is currently driving to appts. Denies smoking/drinking. Pt has an ACP in place. SDOH reviewed, no concerns atthis time. Caitlin reports they haven't received the nebulizer and there is an issue with the script ordered for medication to be used in [facility]. Caitlin also reports that she hasn't picked up his prednisone as of yet due to making phone calls and waiting for return calls. Pt audibly coughing in background,SOB reported on exertion. No distress noted during call. Instructed Caitlin to go to [facility] to curing pickling packer prednisone and CM would make calls about Nebulizer and medication. PC to PCP, Heme/Onc, ID, [facility] to attempt to assist with med order. Spoke with Maria Luz at [facility] pharmacy who reports that the order was for Levalbuterol 1.25 concentrated, and they don't have that on hand and it's on back order.They have Levalbuterol 1.25/3ml on hand. Call made to Lucy from PCP office who deferred to [facility]. Spoke to Julee who reports she doesn't see an order for Levalbuterol and transferred to MA depa ment. Spoke with Tonya who was able to send a message to Dr. Polo and request an updated orderbe sent to [facility] in [place]. PC to [facility], spoke with Alia and updated her. PC to [facility] for update on Nebulizing equipment ordered. Con't: Medication Reconciliation completed: yes Review of Current goals: Discussed the following patient-centered CM goals with the patient during this discussion: -Asthma: Achieve successful management of Asthma and RESPIRATORY: Patient/caregiver will monitor for exacerbation of respiratory condition and treat accordingly -Status: At Risk Recent exacerbation. -Durable Medical Equipment (DME): Patient will have DME in place and adhere to use and Medication: Patient will achieve/maintain appropriate medication management -Status: At Risk ordered nebulizer, hasn't arrived. Needs new order for medication. See incrementalnote. -Prevention: Prevent admission/readmission -Status: At Risk recent hospitalization. COPD Patient: No CHF Patient: NO CM Plan: Reviewed 3 Red Flags with patient. Advised to call CM with any of the following: Red Flag 1: Increased sob, worsening cough, Red Flag 2: pain or discomfort, or Red Flag 3: med/health questions or concerns. Plan for Future Contacts: Plan to follow up today to check progress on the following goals/needs progress in change of medication, nebulizer delivery. Planned contacts from the following parties will occur this week: heme/onc, IVR as additional contacts per workflow. Advancement/Closure Plan: Keep patient at current Tier with reassessment per workflow. Patient provided CM contact information and encouraged to call with any changes in condition. documented in this encounter Plan of Treatment Upcoming Encounters Date Type Specialty Care Team Description 07/03/2023 Laboratory Laboratory [address] [facility] [place] [address] 07/04/2023 Pharmacy Pharmacy [facility] [place] Hem/Onc [address] [place] [address] 07/04/2023 Hem/Onc Treatment Hematology Oncology 07/10/2023 Office Visit Family Medicine Linda Baeza, DO [address] [place] [address] 07/31/2023 Laboratory Laboratory [address] [place] [address] 08/01/2023 Office Visit Hematology Oncology Carlos Pierre MD [address] [place], [place] [id number] 08/01/2023 Hem/Onc Treatment Hematology Oncology Gemma, Chair [address] Hem On[address] [place] [address] 08/28/2023 Office Visit Urology Paul Ha Jr., MD [address] [id number] 10/31/2023 Office Visit Family Linda Blood, [address] [place] [address] 02/06/2024 Nurse Only [facility], Nurse Annual Wellness Cold [address] [place] [address] Health Maintenance Due Date Last Done Comments [...] this encounter Medical Devices Implanted Type Area Childrens Club Attendant Device Identifier Shelf Expiration Date Model / Serial / Lot Intraocular Lens Implanted:Qty: 1 on 01/12/2016 by Amari Loomis MD at OR [facility] Right: Eye 11/06/2018 MX60+11.0 / [id number] / [id number] documented as of this encounter Advance Directives Latest Code Status on File Code Status Date Activated Date Inactivated Comments Full Code 01/12/2016 9:49 AM 01/12/2016 3:56 PM This or shweta reflects the patients wishes and were consensually agreed upon. Care Teams Car Rental Manager Relationship Specialty Start Date End Date Linda Baeza DO [address] [facility] [place] [address] PCP - General Family Medicine 09/11/22 documented as of this encounter
--- OUTSIDE RECORDS SUMMARY | 2023-08-16 11:34 | External Medical Summary ---
Author Name Unknown Address Unknown Organization K01:[facility] - [address] [place] [address] Laboratory Report Ordering Provider Test Date Status KASSIDY RADFORD 07/03/2023 10:00:45 Final Observation Date Value Abnormality Reference (Units ) Status IgG 07/03/2023 10:00:45 460 176-3729 ( mg/dL) Final IgA 07/03/2023 10:00:45 49 Below low normal 70- 400 (mg/dL) Final IgM 07/03/2023 10:00:45 <5 Below low normal 40- 230 (mg/dL) Final Performing Location [facility] - [address] [place] [address]
--- OUTSIDE RECORDS SUMMARY | 2023-08-16 11:34 | External Medical Summary ---
Author Name Unknown Address Unknown Organization K01:[facility] [place] [facility] [address] [facility] [address] [place] [address] Laboratory Report Ordering Provider Test Date Status KASSIDY RADFORD 07/03/2023 10:00:45 Final Observation Date Value Abnormality Reference (Units ) Status WBC, Total 07/03/2023 10:00:45 15.50 Above high normal 4.00-10.80 (K/uL) Final RBC 07/03/2023 10:00:45 3.67 4.50-5.25 (M/uL) Final Hemoglobin 07/03/2023 10:00:45 12.5 Below low normal 14.0-16.8 (g/dL) Final HCT 07/03/2023 10:00:45 38.0 Below low normal 40.0-48.4 (%) Final MCV 07/03/2023 10:00:45 103.5 82.0-99.5 (fL) Final MCH 07/03/2023 10:00:45 34.1 27.0-34.0 (pg) Final MCHC 07/03/2023 10:00:45 32.9 32.0-36.0 (g/dL) Final RDW 07/03/2023 10:00:45 14.4 11.5-15.5 (%) Final Platelets 07/03/2023 10:00:45 206 140-400 (K/uL) Final MPV 07/03/2023 10:00:45 11.4 6.6-11.1 (fL) Final Nucleated erythrocytes/100 leukocytes [Ratio] in Blood by Automated count 07/03/2023 10:00:45 0 <=0 (/100 WBCs) Final Performing Location [facility] [place] [address] [place] [address]
--- OUTSIDE RECORDS SUMMARY | 2023-08-16 11:34 | External Medical Summary ---
Author Name Unknown Address Unknown Organization K01:LABORATORY [facility] [place] - [address] [place] [address] Laboratory Report Ordering Provider Test Date Status KASSIDY RADFORD 07/03/2023 10:00:45 Final Observation Date Value Abnormality Reference (Units ) Status Iron 07/03/2023 10:00:45 67 45-176 (ug/dL) Final Iron-binding capacity 07/03/2023 10:00:45 219 Below low normal 250-425 (ug/dL) Final Transferrin Sat % 07/03/2023 10:00:45 31 15-55 (%) Final Performing Location [facility] - [address] [place] [address]
--- OUTSIDE RECORDS SUMMARY | 2023-08-16 11:34 | External Medical Summary ---
Author Name Unknown Address Unknown Organization K01:[facility] - [address] [place] [address] Laboratory Report Ordering Provider Test Date Status KASSIDY RADFORD 07/03/2023 10:00:45 Final Observation Date Value Abnormality Reference (Units ) Status Ferritin 07/03/2023 10:00:45 581 Above high normal 30 -400 (ng/mL) Final Performing Location [facility] - [address] [place] [address]
--- OUTSIDE RECORDS SUMMARY | 2023-08-16 11:34 | External Medical Summary | Summary of Care ---
Author Name Unknown Organization [facility] Address [address] [place] [address] Phone [phone] Care Team Providers Care Identification Clerk Name Role Phone Deana Baeza DO Primary Care Provider +1- [phone] Reason for Visit * Reason Onset Date Comments Med Request 07/02/2023 case management 07/02/2023 PC to pt's , Caitlin, to inform her that script was sent to [facility] as requested. Encounter Details Date Type Department Care Team Description 07/02/2023 Telephone Hematology/Oncology [facility] [place] [address] [place] [address] Carlos Pierre MD [address] [place] [address] Med Request; case management (PC to pt's w... Allergies Active Allergy Reactions Severity Noted Date [...] Capsule Take by mouth daily. 0 Active [place] 3 1000 MG Oral Capsule Take by mouth daily . 0 Active Tylenol PM Extra Strength 500-25 MG Oral Tablet (diphenhydrAMINE-A PAP (sleep)) Take 1 Tablet by mouth 3 times a day as needed for Sleep. 0 Active Saline 0.65 % Nasal Solution Administer 1 [place] into nostril as needed for Congestion. 0 [...] 50 MCG/ACT Nasal Suspension (Flonase) Administer 1 [place] into each nostril every evening. 0 07/08/2022 [...] as of this encounter Miscellaneous Notes * Addendum Note - Deana Baeza DO - 07/02/2023 2:39 PM EDTAddended by: DEANA BAEZA on: 07/02/2023 02:39 PM Modules accepted: Orders * Telephone Encounter - Deana Baeza DO - 07/02/2023 2:35 PM EDT Nebulizer solution sent to pharmacy Also it is documented that the PCP office refused to send this in, however, I do not see that documented anywhere in the chart. There are no triaged directed to our office other than this one Patient has not been seen since his hospital discharge however, did not refuse medications If there is documentation that I am not aware of please notify me Thank you * Telephone Encounter - Felicitas Sharma RN - 07/02/2023 1:02 PM EDT Received PC from spouse, Caitlin, who reports she still hasn't heard form DME regarding Nebulizer and no update from pharmacy regarding Levalbuterol order. PC to pharmacy, no new order received. PC to [employer] [facility] requesting an update. Received a return call from Teresa with [employer] with copay information to pass on to Caitlin. PC to PCP office, spoke with Letitia for assistance in obtaining an order for pt. PC to Caitlin to update her on above. Agreeable to call [employer] to discuss further andarrange copay. Received a voicemail from Caitlin reporting that she was able to speak with Telly to arrange delivery after given payment information for copay. Requesting a call back regarding any updates on Levalbuterol order. Felicitas Sharma RN, MSN Business Services Director [facility] [phone] * Telephone Encounter - Franca Skaggs RN - 07/02/2023 12:19 PM EDT Patients appt with our office is 08/01/23. This should be prescribed by PCP's office. Will route toPCP. * Telephone Encounter - ANASTACIA Rae - 07/02/2023 11:46 AM EDT Pt's [facility] nurse social work case manager Felicitas Singer calling about patient's new order [...] initially prescribed by hospitalist Dr. Chu [facility]. Pt has also not been seen in pulmonary medicine for several years so they would be unable to prescribe as well. renewals manager asking if Dr. Pierre would be willing to prescribe this medication and send it to [facility] pharmacy in [place]. Please call Felicitas Singer to advise, documented in this encounter Plan of Treatment Upcoming Encounters Date Type Specialty Care Team Description 07/03/2023 Laboratory Laboratory [facility] [address] [place] [address] 07/04/2023 Pharmacy Pharmacy [facility] [place] Hem/Onc [address] [place] [address] 07/04/2023 Hem/Onc Treatment Hematology Oncology 07/10/2023 Office Visit Family Medicine Deana Baeza, [address] [place] [address] 07/31/2023 Laboratory Laboratory [facility] [address] [facility] [place] [address] 08/01/2023 Office Visit Hematology Oncology Carlos Pierre MD [address] [place] [address] 08/01/2023 Hem/Onc Treatment Hematology Oncology Gemma, Chair 8 Hem Onc [address] [place] [address] 08/28/2023 Office Visit Urology Leland Carlos, Paul Bates MD [address] [address] [place] [id number] 10/31/2023 Office Visit Family Medicine Deana Baeza, [address] [facility] [place] [address] 02/06/2024 Nurse Only [facility] [place], Nurse Annual Wellness [address] [place] [address] Health Maintenance Due Date Last Done Comments [...] this encounter Medical Devices Implanted Type Area House Manager Device Identifier Shelf Expiration Date Model / Serial / Lot Intraocular Lens Implanted:Qty: 1 on 01/12/2016 by Amari Loomis MD at OR [facility] Right: Eye 11/06/2018 MX60+11.0 / [id number] / [id number] documented as of this encounter Visit Diagnoses Diagnosis Viral pneumonia- Primary Viral pneumonia, unspecified documented in this encounter Advance Directives Latest Code Status on File Code Status Date Activated Date Inactivated Comments Full Code 01/12/2016 9:49 AM 01/12/2016 3:56 PM This or shweta reflects the patients wishes and were consensually agreed upon. Care Teams Identification Clerk Relationship Specialty Start Date End Date Deana Baeza DO [address] [place] [address] PCP - General Family Medicine 09/11/22 documented as of this encounter
--- OUTSIDE RECORDS SUMMARY | 2023-08-16 11:34 | External Medical Summary | Summary of Care ---
Author Name Unknown Organization [facility] Address [address] [place] [address] Phone [phone] Care Team Providers Care Tactical/Mobile Watch Officer Name Role Phone Linda Baeza DO Primary Care Provider +1- [phone] Reason for Visit * Reason Comments Outpatient Testing Encounter Details Date Type Department Care Team Description 07/03/2023 Laboratory Laboratory [facility] [place] [address] [place] [address] [facility] [address] [place] [address] Hypogammaglobulinemia (HCC); CLL (chronic lymphocytic leukemia) ([facility]) Allergies Active Allergy Reactions Severity Noted Date Comments Meperidine Hcl 02/19/2019 Lamotrigine Other (Please comment) Medium 07/19/2021 Causes patient to fall. Rofecoxib 11/06/2004 rash &swelling in legs, stumbling (vioxx) documented as of this encounter (statuses as of 07/03/2023) Medications Medication Sig Dispensed Refills Start Date [...] Capsule Take by mouth daily. 0 Active Friona 3 1000 MG Oral Capsule Take by mouth daily . 0 Active Tylenol PM Extra Strength 500-25 MG Oral Tablet (diphenhydrAMINE-A PAP (sleep)) Take 1 Tablet by mouth 3 times a day as needed for Sleep. 0 Active Saline 0.65 % Nasal Solution Administer 1 Sac[place] into nostril as needed for Congestion. 0 [...] 50 MCG/ACT Nasal Suspension (Flonase) Administer 1 Sacul into each nostril every evening. 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 09/11/2022 documented as of this encounter (statuses as of 07/03/2023) Immunizations Name Administration Dates Next Due COVID-19 [...] Encounters Date Type Specialty Care Team Description 07/04/2023 Pharm[place] [facility] [facility] [place] Hem/Onc [address] [place] [address] 07/04/2023 Hem/Onc Treatment Hematology Oncology 07/10/2023 Office Visit Family Medicine Linda Baeza DO [address] [facility] [place] [address] 07/31/2023 Laboratory Laboratory Jonatan Schneider [facility] [address] [facility] [address] 08/01/2023 Office Visit Hematology Oncology Carlos Pierre MD [address] [facility] [place] [address] 08/01/2023 Hem/Onc Treatment Hematology Oncology Gemma, Chair 8 Hem Onc [facility] [address] [place] [address] 08/28/2023 Office Visit Urology Leland Carlos, Paul Bates MD [address] [address] [place] [address] 10/31/2023 Office Visit Family Medicine Linda Baeza DO [address] [place] [address] 02/06/[address] [facility], Nurse Annual Wellness Cold [address] [place] [address] [place] [address] Pending Results Name Type Priority Associated Diagnoses Date /Time IMMUNOGLOBULIN QUANTITATIVE Lab STAT Hypogammaglobulinemia ([facility]) 07/03/2023 10:00 AM EDT IRON SCREEN, INCLUDING TIBC Lab Routine CLL (chronic lymphocytic leukemia) ([facility]) 07/03/2023 10:00 AM EDT FERRITIN Lab Routine CLL (chronic lymphocytic leukemia) ([facility]) 07/03/2023 10:00 AM EDT CBC WITH WBC DIFFERENTIAL Lab STAT CLL (chronic lymphocytic leukemia) ([facility]) 07/03/2023 10:00 AM EDT COMPREHENSIVE METABOLIC PANEL Lab STAT CLL (chronic lymphocytic leukemia) ([facility]) 07/03/2023 10:00 AM EDT CBC Lab STAT CLL (chronic lymphocytic leukemia) ([facility]) 07/03/2023 10:00 AM EDT DIFFERENTIAL, AUTOMATED Lab STAT CLL (chronic lymphocytic leukemia) ([facility]) 07/03/2023 10:00 AM EDT Health Maintenance Due Date Last [...] this encounter Medical Devices Implanted Type Area [employer] Engineer Device Identifier Shelf Expiration Date Model / Serial / Lot Intraocular Lens Implanted:Qty: 1 on 01/12/2016 by Amari Loomis MD at [facility] Right: Eye 11/06/2018 MX60+11.0 / [id number] / [id number] documented as of this encounter Visit Diagnoses [...] and were consensually agreed upon. Care Teams Tactical/Mobile Watch Officer Relationship Specialty Start Date End Date Linda Baeza DO [address] [facility] [place] [address] PCP - General Family Medicine 09/11/22 documented as of this encounter
--- OUTSIDE RECORDS SUMMARY | 2023-08-16 11:34 | External Medical Summary | Summary of Care ---
Author Name Unknown Organization [facility] Address [address] [place] [address] Phone [phone] Care Team Providers Care Buying Agent Name Role Phone Linda Baeza DO Primary Care Provider +1- [phone] Reason for Visit * Reason Comments IV Therapy IVIG * Episode Based Medications (Routine) - Authorized Specialty Diagnoses / Procedures Referred By Soham joel Referred To Contact Diagnoses CLL (chronic lymphocytic leukemia) (HCC) Hypogammaglobulinemia (HCC) Procedures [place] INJ IVIG PRIVIGEN 500 MG Carlos Pierre MD [address] [place], [place] [address] Anc Hem/Onc [facility] [address] [facility] [place] [address] Referral ID Status Reason Start Date Expiration Date V isits Requested Visits Authorized [id number] Authorized 05/14/2023 11/15/2023 99 99 Encounter Details Date Type Department Care Team Description 07/04/2023 Hem/Onc Treatment Hematology/Oncology Treatment, [place] [address] [place] [address] CLL (chronic lymphocytic leukemia) (HCC)*; Hypogammaglobulinemia (HCC) Allergies Active Allergy Reactions Severity Noted Date [...] Capsule Take by mouth daily. 0 Active [place] 3 1000 MG Oral Capsule Take by mouth daily . 0 Active Tylenol PM Extra Strength 500-25 MG Oral Tablet (diphenhydrAMINE-A PAP (sleep)) Take 1 Tablet by mouth 3 times a day as needed for Sleep. 0 Active Saline 0.65 % Nasal Solution Administer 1 [place] into nostril as needed for Congestion. 0 [...] 50 MCG/ACT Nasal Suspension (Flonase) Administer 1 [place] into each nostril every evening. 0 07/08/2022 [...] 1 Each by mouth in the morning. 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 [...] Sign Reading Time Taken Comments Blood Pressure 128/64 07/04/2023 11:07 AM EDT Pulse 70 07/04/2023 11:07 AM EDT Temperature 35.7 C (96.2 F) 07/04/2023 11:07 AM E DT Respiratory Rate 18 07/04/2023 11:07 AM EDT Oxygen Saturation - - Inhaled Oxygen Concentration - - Weight 70.1 kg (154 lb 9.6 oz) 07/04/2023 10:14 AM EDT Height - - Body Mass Index 22.18 04/25/2023 10:24 AM EDT documented in this encounter Functional Status [...] as of this encounter Nursing Notes * Tahmina Coombs RN - 07/04/2023 12:25 PM EDT Goals: Patient will remain free from injury. Possible barriers to meeting goals: Risk for falls r/t ambulating with IV pole. Stability of the patient: Moderately stable - low risk of patient condition declining or worsening Summary regarding today's goals: pt tolerated treatment well and remained free from injury Patient discharged in stable condition. * Tahmina Coombs RN - 07/04/2023 10:15 AM EDT Chair 11 Patient presents to the clinic today for IVIG, patient has no complaints. PIV started in L forearm 22G. NS infusion started. Patient was recently admitted to [facility] with viral pneumonia. He is doing better, but it has been a slow process. Safety and Risk for Injury Patient will remain free from injury. Ensure appropriate safety devices are available. Provide and maintain safe environment. at chairside. documented in this encounter Plan of Treatment Upcoming Encounters Date Type Specialty Care Team Description 07/10/2023 Office Visit Family Linda Blood DO [address] [facility] [place] [address] 07/31/2023 Laboratory Laboratory Jonatan Schneider [address] [facility] [place] [address] 08/01/2023 Office Visit Hematology Oncology Carlos Pierre MD [address] [place] [address] 08/01/2023 Hem/Onc Treatment Hematology Oncology [place], Chair [address] Hem Onc Scenery [address] [place] [address] 08/28/2023 Office Visit Urology Paul Ha Jr., MD [address] [facility] [address] [place] [address] 10/31/2023 Office Visit Family Medicine Linda Baeza, [address] [place] [address] 02/06/2024 Nurse Only Shira Perez, Nurse Annual Wellness [facility] [address] [place] [address] Health Maintenance Due Date Last Done Comments [...] this encounter Medical Devices Implanted Type Area Acid Blower Device Identifier Shelf Expiration Date Model / Serial / Lot Intraocular Lens Implanted:Qty: 1 on 01/12/2016 by Amari Loomis MD at [facility] Right: Eye 11/06/2018 MX60+11.0 / [id number] / [id number] documented as of this encounter Visit Diagnoses [...] infusion reaction with IVIG, Starting on Andreina 07/04/23 at 1115, Until Discontinued, Maximum of 4 grams (4000 mg) per day. Given 07/04/2023 10:13 AM EDT 650 mg diphenhydrAMINE (Benadryl) cap 25 mg 25 mg, Oral, ONCE PRN If previous infusion reaction with IVIG, Starting on Sat07/04/23 at 1115, Until Discontinued Given 07/04/2023 10:13 AM EDT 25 mg diphenhydrAMINE (Benadryl) inj 50 mg 50 mg, IV Push, ONCE PRN Other, Hypersensitivity Reaction, Starting on Sat07/04/23 at 1012, Until Sat07/05/23 at 1011, For 24 hours EPINEPHrine 1 MG/ML inj 0.3 mg 0.3 mg, Intramuscular, ONCE PRN Other, Hypersensitivity Reaction or Anaphylaxis, Starting on Sat07/04/23 at 1012, Until Sat07/05/23 at 1011, For 24 hours hEParin 100 UNIT/ML Lock Flush inj 500 Units 500 Units (5 mL), IV Lock, PRN Other, IV Flush, Starting on Sat07/04/23 at 1012, Until Sat07/05/23 at 1011, For 24 hours, Do not flush if lock, PICC, or central line not in place; IV infusing or unable to flush. Hydrocortisone Sod Suc (PF) (Solu-Cortef) inj 100 mg 100 mg, IV Push, ONCE PRN Other, Hypersensitivity Reaction, Starting on Sat07/04/23 at 1012, Until Sat07/05/23 at 1011, For 24 hours NSS infusion 500 mL, Intravenous, at 50 mL/hr, CONTINUOUS, Starting on Sat07/04/23 at 1115, Until Sat07/04/23 at 2114 Start Infusion 07/04/2023 9:50 AM EDT 500 mL 50 mL/hr sodium chloride 0.9 % flush central line 10 mL 10 mL, IV Push, PRN Other, IV Flush, Starting on Sat07/04/23 at 1012, Until Sat07/05/23 at 1011, For 24 hours, Do not flush if lock, PICC, or central line not in place; IV infusing or unable to flush. Inactive Administered Medications - up to 3 most recent administrations Medication Order MAR Action Action Date Dose Rate Site Immune Globulin Human- IVIG 10% (Privigen) IV 20 g 20 g, IV Piggyback, ONCE, 1 dose, On Andreina 07/04/23 at 1245, PRIVIGEN infusion instructions Infusion Rate VTBI 0.005 [...] rate of the previous vial Start Infusion 07/04/2023 11:42 AM EDT 20 g 350 mL/hr Immune Globulin Human-IVIG 10% (Privigen) IV 10 g 10 g, IV Piggyback, ONCE, 1 dose, On Andreina 07/04/23 at 1145, PRIVIGEN infusion instructions Infusion Rate [...] rate of the previous vial Rate Change 07/04/2023 11:37 AM EDT 350 mL/hr Rate Change 07/04/2023 11:22 AM EDT 175 mL/hr Rate Change 07/04/2023 11:07 AM EDT 88 mL/hr documented in this encounter Advance Directives Latest Code Status on File Code Status Date Activated Date Inactivated Comments Full Code 01/12/2016 9:49 AM 01/12/2016 3:56 PM This or shweta reflects the patients wishes and were consensually agreed upon. Care Teams Buying Agent Relationship Specialty Start Date End Date Linda Baeza DO [address] [facility] [place] [address] PCP - General Family Medicine 09/11/22 documented as of this encounter
--- OUTSIDE RECORDS SUMMARY | 2023-08-16 11:34 | External Medical Summary ---
Author Name Unknown Address Unknown Organization [id number]:[place] [facility] [place] [address] [facility] [address] Laboratory Report Ordering Provider Test Date Status KASSIDY RADFORD 07/03/2023 10:00:45 Final Observation Date Value Abnormality Reference (Units ) Status SYNC LEUKOCYTES IN BLOOD BY AUTOMATED COUNT 07/03/2023 10:00:45 15.50 Above high normal 4.00-10.80 (K/uL) Final Neutrophils/100 leukocytes in Blood by Manual count 07/03/2023 10:00:45 24.0 Below low normal 40.0-75.0 (%) Final Lymphocytes/100 leukocytes in Blood by Manual count 07/03/2023 10:00:45 70.0 Above high normal 18.0-42.0 (%) Final Monocytes/100 leukocytes in Blood by Manual count 07/03/2023 10:00:45 5.0 1.0-11.0 (%) Final Metamyelocytes/100 leukocytes in Blood by Manual count 07/03/2023 10:00:45 1.0 Above high normal <=0.0 (%) Final Neutrophils [#/volume] in Blood by Manual count 07/03/2023 10:00:45 3.72 1.80-7.70 (K/uL) Final Lymphocytes [#/volume] in Blood by Manual count 07/03/2023 10:00:45 10.85 Above high normal 1.00-4.80 (K/uL) Final Monocytes [#/volume] in Blood by Manual count 07/03/2023 10:00:45 0.78 0.00-1.10 (K/uL) Final Metamyelocytes [#/volume] in Blood by Manual count 07/03/2023 10:00:45 0.16 Above high normal <=0.00 (K/uL) Final Variant lymphocytes [Presence] in Blood by Light microscopy 07/03/2023 10:00:45 Present Abnormal None Seen Final Performing Location LABORATORY [facility] - [address] [facility] [address]
--- OUTSIDE RECORDS SUMMARY | 2023-08-16 11:34 | External Medical Summary ---
Author Name Unknown Address Unknown Organization [id number]:[place] [facility] [place] [address] [facility] [address] Laboratory Report Ordering Provider Test Date Status KASSIDY RADFORD 07/03/2023 10:00:45 Final Observation Date Value Abnormality Reference (Units ) Status BUN 07/03/2023 10:00:45 25 Above high normal 6-20 (mg/dL) Final Creatinine 07/03/2023 10:00:45 1.0 0.6-1.2 (mg/dL) Final Glomerular filtration rate/1.73 sq M.predicted [Volume Rate/Area] in Serum, Plasma or Blood by Creatinine-based formula (CKD-EPI) 07/03/2023 10:00:45 74 >=60 (mL/min) Final eGFR is calculated based on the CKD-EPI 2020 equation SODIUM 07/03/2023 10:00:45 137 135-146 (m mol/L) Final Potassium 07/03/2023 10:00:45 4.2 3.5-5.1 (m mol/L) Final Cl 07/03/2023 10:00:45 100 98-107 (mm ol/L) Final CO2 07/03/2023 10:00:45 25 22-32 (mmo l/L) Final Anion gap 07/03/2023 10:00:45 12 7-15 (mmol /L) Final Glucose 07/03/2023 10:00:45 85 70-120 (mg /dL) Final Albumin 07/03/2023 10:00:45 3.9 3.8-5.0 (g /dL) Final AST (Aspartate aminotransferase) 07/03/2023 10:00:45 16 10-50 (U/L) Final Alk Phos 07/03/2023 10:00:45 65 35-130 (U/ L) Final Bilirubin, Total 07/03/2023 10:00:45 <0.2 <=1 .2 (mg/dL) Final Calcium 07/03/2023 10:00:45 9.9 8.4-10.2 ( mg/dL) Final Protein 07/03/2023 10:00:45 6.2 6.0-8.3 (g /dL) Final ALT (Alanine aminotransferase) 07/03/2023 10:00:45 19 10-50 (U/L) Final Performing Location [place] [facility] [place] [address] [facility] [address]
--- OUTSIDE RECORDS SUMMARY | 2023-08-16 11:34 | External Medical Summary | Summary of Care ---
Author Name Unknown Organization [facility] Address [address] [place] [address] Phone [phone] Care Team Providers Care Air Launch Weapons Technician Name Role Phone Deana Baeza DO Primary Care Provider [phone]- [phone] Reason for Visit * Reason Onset Date Comments Med Request 07/02/2023 case management 07/02/2023 Encounter Details Date Type Department Care Team Description 07/02/2023 Telephone Hematology/Oncology [facility] [place] [address] [facility] [place] [address] Carlos Pierre MD [address] [place] [address] Med Request; case management Allergies Active Allergy [...] Capsule Take by mouth daily. 0 Active [place] 3 1000 MG Oral Capsule Take by mouth daily . 0 Active Tylenol PM Extra Strength 500-25 MG Oral Tablet (diphenhydrAMINE-A PAP (sleep)) Take 1 Tablet by mouth 3 times a day as needed for Sleep. 0 Active Saline 0.65 % Nasal Solution Administer 1 [place] into nostril as needed for Congestion. 0 [...] 50 MCG/ACT Nasal Suspension (Flonase) Administer 1 [place] into each nostril every evening. 0 07/08/2022 [...] pharmacy, no new order received. PC to [employer]Class, DREW requesting an update. Received a return call from Teresa with [employer] with copay information to pass on to Caitlin. PC to PCP office, spoke with Letitia for assistance in obtaining an order for pt. PC to Caitlin to update her on above. Agreeable to call [employer] to discuss further andarrange copay. Received a voicemail from Caitlin reporting that she was able to speak with [employer] to arrange delivery after given payment information for copay. Requesting a call back regarding any updates on Levalbuterol order. Felicitas Sharma RN, MSN [employer] [facility] [phone] * Telephone Encounter - Franca Skaggs RN - 07/02/2023 12:19 PM EDT Patients appt with our office is 08/01/23. This should be prescribed by PCP's office. Will route toPCP. * Telephone Encounter - ANASTACIA Rae - 07/02/2023 11:46 AM EDT Pt's [facility] nurse caseworker protective services Felicitas Singer calling about patient's new order [...] initially prescribed by hospitalist Dr. Chu from [facility]. Pt has also not been seen in pulmonary medicine for several years so they would be unable to prescribe as well. manager web asking if Dr. Pierre would be willing to prescribe this medication and send it to [facility] [place]. Please call Felicitas Singer to advise, documented in this encounter Plan of Treatment Upcoming Encounters Date Type Specialty Care Team Description 07/03/2023 Laboratory Laboratory Jonatan Schneider [facility] [address] [place] [address] 07/04/2023 Pharmacy Pharmacy [facility] Hem/Onc [address] [place] [address] 07/04/2023 Hem/Onc Treatment Hematology Oncology 07/10/2023 Office Visit Family Medicine Deana Baeza DO [address] [place] [address] 07/31/2023 Laboratory Laboratory Jonatan Schneider [facility] [address] [place] [address] 08/01/2023 Office Visit Hematology Oncology Carlos Pierre MD [address] [place] [address] 08/01/2023 Hem/Onc Treatment Hematology Oncology [place], [address] Hem Onc [address]ery [address] [place] [address] 08/28/2023 Office Visit Urology Paul Ha Jr., MD [address] [address] [place] [address] 10/31/2023 Office Visit Family Medicine Deana Baeza DO [address] [place] [address] 02/06/2024 Nurse Only [facility], Nurse [facility] Wellness Cold [address] [place] [address] Health Maintenance Due Date Last Done Comments [...] this encounter Medical Devices Implanted Type Area Resident Hall Director Device Identifier Shelf Expiration Date Model / Serial / Lot Intraocular Lens Implanted:Qty: 1 on 01/12/2016 by Amari Loomis MD at OR [facility] Right: Eye 11/06/2018 MX60+11.0 / [id number] / [id number] documented as of this encounter Visit Diagnoses Diagnosis Viral pneumonia- Primary Viral pneumonia, unspecified documented in this encounter Advance Directives Latest Code Status on File Code Status Date Activated Date Inactivated Comments Full Code 01/12/2016 9:49 AM 01/12/2016 3:56 PM This or shweta reflects the patients wishes and were consensually agreed upon. Care Teams Air Launch Weapons Technician Relationship Specialty Start Date End Date Deana Baeza DO [address] [place] [address] PCP - General Family Medicine 09/11/22 documented as of this encounter
--- OUTSIDE RECORDS SUMMARY | 2023-08-16 11:35 | External Medical Summary | Summary of Care ---
Author Name Unknown Organization [facility] Address [address] [place] [address] Phone [phone] Care Team Providers Care [place] Supervisor Name Role Phone AryanJoellechava Sharma DO Primary Care Provider [phone]- [phone] Reason for Visit * Reason Onset Date Comments case management 07/01/2023 Encounter Details Date Type Department Care Team Description 07/01/2023 Telephone Infectious Disease, [place] [address] [place], [place] [id number] Ector Polo DO [address] [place] [address] case management Allergies Active Allergy Reactions Severity Noted Date Comments Meperidine Hcl 02/19/2019 Lamotrigine Other (Please comment) Medium 07/19/2021 Causes patient to fall. Rofecoxib 11/06/2004 rash &swelling in legs, stumbling (vioxx) documented as of this encounter (statuses as of 07/01/2023) Medications Medication Sig Dispensed Refills Start Date [...] Capsule Take by mouth daily. 0 Active [place] 3 1000 MG Oral Capsule Take by mouth daily . 0 Active Tylenol PM Extra Strength 500-25 MG Oral Tablet (diphenhydrAMINE-A PAP (sleep)) Take 1 Tablet by mouth 3 times a day as needed for Sleep. 0 Active Saline 0.65 % Nasal Solution Administer 1 [place] into nostril as needed for Congestion. 0 [...] 50 MCG/ACT Nasal Suspension (Flonase) Administer 1 [place] into each nostril every evening. 0 07/08/2022 [...] as of this encounter (statuses as of 07/01/2023) Active Problems Problem Noted Date Dyslipidemia 09/11/2022 [...] as of this encounter (statuses as of 07/01/2023) Resolved Problems Problem Noted Date Resolved Date Asthma 09/11/2022 09/11/2022 Stage 3 chronic kidney disease 09/11/2022 1 11/12/2021 Stage 3 chronic kidney disease 09/11/2022 1 11/12/2021 CRF (chronic renal failure), stage 3 (moderate) 08/22/2021 04/25/2023 Seizure disorder 12/16/2020 09/11/2022 Asthma, mild persistent 04/30/2013 03/17/20 17 Tuberculosis, treated 07/30/2008 09/11/2022 documented as of this encounter (statuses as of 07/01/2023) Immunizations Name Administration Dates Next Due COVID-19 mRNA, LNP-s, No Pre serve, 2-Dose Series ([employer]) 06/07/2021,12/14/2020,11/23/2020 COVID-19, LNP-s, No Preserve , William-sucrose, Ages 12+ ([employer]) 02/08/2022 COVID-19, mRNA, LNP-s, PF, B ooster, [...] Telephone Encounter - Felicitas Sharma RN - 07/01/2023 3:58 PM EDT Role of CM and reason for call and discussed with pt, agreeable. Reports: Caitlin was able to tile picker the Prednisone, still hasn't heard anything regarding the nebulizer. CM on hold for >30 minutes with no answer from [facility]. Discussed red flags and reason to reach out to PCP/CM including, increased sob, worsening cough, pain or discomfort, med/health questions or concerns. Caitlin agreeable to f/u tomorrow to discuss status of medication order and nebulizer. Denies fever, chills, chest pain, bowel or bladder issues, swelling, pain or discomfort. No other questions or concerns offered at this time. Upcoming appointments include: 07/04 heme/onc, 07/10 PCP. Felicitas Sharma RN, MSN School Psychology Professor [facility] [employer] [facility] [phone] * Telephone Encounter - Shyla Champagne Twin - 07/01/2023 3:08 PM EDT Received call from case management about patient's new order for levalbuterol. Patient's pharmacy had only gotten an order for the concentrated amount and they are unable to provide the saline to mixwith. But they do have the diluted dose in stock but would need a new prescription for it. The dosewould be for 1.25 per 3 mL. Pharmacy has been selected. Sending to both Dr. Polo who follows the patient, and Dr. Chu who saw the patient recently inpatient at [facility] documented in this encounter Plan of Treatment Upcoming Encounters Date Type Specialty Care Team Description 07/03/2023 Laboratory Laboratory Jonatan [address] [place] [address] 07/04/2023 Pharmacy Pharmacy [facility] Hem/Onc [address] [place] [address] 07/04/2023 Hem/Onc Treatment Hematology Oncology 07/10/2023 Office Visit Family Medicine Linda Baeza, [address] [place] [address] 07/31/2023 Laboratory Laboratory Jonatan Schneider [facility] [address] [place] [address] 08/01/2023 Office Visit Hematology Oncology Carlos Pierre MD [address] [place] [address] 08/01/2023 Hem/Onc Treatment Hematology Oncology [place], [address] Hem Onc [address] [place] [address] 08/28/2023 Office Visit Urology Paul Ha Jr., MD [address] [address] [place] [address] 10/31/2023 Office Visit Family Medicine Linda Baeza DO [address] [place] [address] 02/06/[address] [facility], Nurse [facility] [address] [place] [address] Health Maintenance Due Date Last Done Comments [...] this encounter Medical Devices Implanted Type Area Shaper Hand Device Identifier Shelf Expiration Date Model / Serial / Lot Intraocular Lens Implanted:Qty: 1 on 01/12/2016 by Amari Loomis MD at [facility] Right: Eye 11/06/2018 MX60+11.0 / [id number] / [id number] documented as of this encounter Advance Directives Latest Code Status on File Code Status Date Activated Date Inactivated Comments Full Code 01/12/2016 9:49 AM 01/12/2016 3:56 PM This or shweta reflects the patients wishes and were consensually agreed upon. Care Teams Blooming Mill Supervisor Relationship Specialty Start Date End Date Linda Baeza DO [address] [facility] [place] [address] PCP - General Family Medicine 09/11/22 documented as of this encounter
--- OUTSIDE RECORDS SUMMARY | 2023-08-16 11:35 | External Medical Summary ---
Author Name Unknown Address Unknown Organization K01:LABORATORY [facility] [place] - [address] [facility] Laboratory Report Ordering Provider Test Date Status CHIN CLAY 06/27/2023 10:21:46 Preliminary Observation Date Value Abnormality Reference (Units) Status Bacteria identified in Specimen by Culture 06/27/2023 10:21:46 No acid fast bacilli isolated to date Preliminary Microscopic observation [Identifier] in Specimen by Rhodamine-auramine fluorochrome stain 06/27/2023 10:21:46 No acid fast bacilli seen Preliminary Test: Culture, AFB
Spec imen Source: Sputum
Specimen Type: Lower Respiratory
Specimen Date: 06/27/2023 10:21 AM
Result Date: 07/02/2023 9:23 AM
Result Status: Preliminary result
Resulting Lab: LABORATORY [facility]
[address]
[place] [address]

CULTURE

No acid fast bacilli isolated to date

STAIN

No acid fast bacilli seen

null Performing Location LABORATORY [facility] [place] - [address] [facility] [id number]
--- OUTSIDE RECORDS SUMMARY | 2023-08-16 11:35 | External Medical Summary | Summary of Care ---
Author Name Unknown Organization [facility] Address [address] [place] [address] Phone [phone] Care Team Providers Care Professional Builder Name Role Phone Linda Baeza DO Primary Care Provider +1- [phone] Reason for Visit * Reason Onset Date Comments Advice 06/27/2023 Encounter Details Date Type Department Care Team Description 06/27/2023 Telephone Hematology/Oncology, [facility] [address] [place] [address] Donato Leary MD [address] [place] [address] Advice Allergies Active Allergy Reactions Severity Noted Date Comments Meperidine Hcl 02/19/2019 Lamotrigine Other (Please comment) Medium 07/19/2021 Causes patient to fall. Rofecoxib 11/06/2004 rash &swelling in legs, stumbling (vioxx) documented as of this encounter (statuses as of 06/28/2023) Medications Medication Sig Dispensed Refills Start Date [...] Capsule Take by mouth daily. 0 Active [place] 3 1000 MG Oral Capsule Take by mouth daily . 0 Active Tylenol PM Extra Strength 500-25 MG Oral Tablet (diphenhydrAMINE-A PAP (sleep)) Take 1 Tablet by mouth 3 times a day as needed for Sleep. 0 Active Saline 0.65 % Nasal Solution Administer 1 [place] into nostril as needed for Congestion. 0 [...] 50 MCG/ACT Nasal Suspension (Flonase) Administer 1 [place] into each nostril every evening. 0 07/08/2022 [...] Saturday only. 24 Capsule 0 06/10/2023 Active documented as of this encounter (statuses as of 06/28/2023) Active Problems Problem Noted Date Dyslipidemia 09/11/2022 [...] as of this encounter (statuses as of 06/28/2023) Resolved Problems Problem Noted Date Resolved Date Asthma 09/11/2022 09/11/2022 Stage 3 chronic kidney disease 09/11/2022 1 11/12/2021 Stage 3 chronic kidney disease 09/11/2022 1 11/12/2021 CRF (chronic renal failure), stage 3 (moderate) 08/22/2021 04/25/2023 Seizure disorder 12/16/2020 09/11/2022 Asthma, mild persistent 04/30/2013 03/17/20 17 Tuberculosis, treated 07/30/2008 09/11/2022 documented as of this encounter (statuses as of 06/28/2023) Immunizations Name Administration Dates Next Due COVID-19 mRNA, LNP-s, No Pre serve, 2-Dose Series ([employer]) 06/07/2021,12/14/2020,11/23/2020 COVID-19, LNP-s, No Preserve , William-sucrose, [...] encounter Miscellaneous Notes * Telephone Encounter - Franca Skaggs RN - 06/28/2023 9:15 AM EDT Patient admitted. Dr Pierre: SANDRA * Telephone Encounter - Franca Skaggs RN - 06/27/2023 1:21 PM EDT Called Caitlin- she states that patient is not doing well. Vomited several times today, sputum is now thick and yellow. She thinks he now has pneumonia. She is aware he said he was feeling better, but states that she feels he has been getting worse over the last few days. Advised Caitlin that if patient is getting worse, he should go back to ER for assessment. She is agreeable to this and will bring him to [facility]. Called [facility] ER and spoke to Eladia. Eladia remembers patient from the other day, aware he is coming back into ER. * Telephone Encounter - ANASTACIA Yin - 06/27/2023 1:09 PM EDT Patients called concerned that she has not hear back yet. She says Tano is very sick and she is not sure how to handle this. * Telephone Encounter - ANASTACIA Bell - 06/27/2023 10:39 AM EDT Pt called in stating that she had a missed call from Franca and was trying to return that call.She is asking for a return call at her earliest convenience. [phone] * Telephone Encounter - Carlos Pierre MD - 06/27/2023 10:38 AM EDT I reviewed [facility] records, -parainfluenza 3 detected by PCR. * Telephone Encounter - Franca Skaggs RN - 06/27/2023 10:23 AM EDT Called patient- he states that he did not go to ER. He states that he went to [facility] ER 06/25 and theytold him he probably had the flu or some kind of viral infection. They said that they would admit him, but he states that they gave him the choice and he chose to go home. He thinks he is feeling a bit better today. Temp this morning was 99 and 100.2, this was after taking tylenol. He is trying to drink fluids. Advised patient to reconsider going to ER if symptoms worsen or do not start to improve. He verbalized understanding. ER visit note scanned into chart. Dr Pierre: FYI * Telephone Encounter - Donato Leary MD - 06/27/2023 10:08 AM EDT Patient called me yesterday, not feeling well and lethargic with fever. Recommended to take the patient to the ED for further evaluation documented in this encounter Plan of Treatment Upcoming Encounters Date Type Specialty Care Team Description 07/03/2023 Laboratory Laboratory Jonatan Schneider [address] [place] [address] 07/04/2023 Pharmacy Pharmacy [facility], [facility] [address] [facility] [id number] 07/04/2023 Hem/Onc Treatment Hematology Oncology 07/31/2023 Laboratory Laboratory [address] [place] [address] 08/01/2023 Office Visit Hematology Oncology Carlos Pierre MD [address] [facility] [place] [id number] 08/01/2023 Hem/Onc Treatment Hematology Oncology [place], [address] Hem Onc Scenery [address] [place] [address] 08/28/2023 Office Visit Urology Leland Carlos, Paul Bates MD [address] [place] [id number] 10/31/2023 Office Visit Family Medicine Linda Baeza DO [address] [facility] [place] [address] 02/06/[address] [facility], Nurse Annual Wellness Cold [address] [facility] [place] [address] Health Maintenance Due Date Last Done Comments [...] this encounter Medical Devices Implanted Type Area Admission Discharge Rn Device Identifier Shelf Expiration Date Model / Serial / Lot Intraocular Lens Implanted:Qty: 1 on 01/12/2016 by Amari Loomis MD at OR [facility] Right: Eye 11/06/2018 MX60+11.0 / [id number] documented as of this encounter Advance Directives Latest Code Status on File Code Status Date Activated Date Inactivated Comments Full Code 01/12/2016 9:49 AM 01/12/2016 3:56 PM This or shweta reflects the patients wishes and were consensually agreed upon. Care Teams Professional Builder Relationship Specialty Start Date End Date Linda Baeza DO [address] [facility] [place] [address] PCP - General Family Medicine 09/11/22 documented as of this encounter
--- OUTSIDE RECORDS SUMMARY | 2023-08-16 11:35 | External Medical Summary ---
Author Name Unknown Address Unknown Organization K01:[facility] - [address] [place] [address] Laboratory Report Ordering Provider Test Date Status CHIN CLAY 06/27/2023 10:21:46 Final Observation Date Value Abnormality Reference (Units) Status Bacteria identified in Specimen by Culture 06/27/2023 10:21:46 Moderate growth normal joyce Final Gram Stain 06/27/2023 10:21:46 Purulent specimen, >25 neutrophils/low power microscopic field. Abnormal Final Gram Stain 06/27/2023 10:21:46 Many Polymorphonuclear leukocytes Abnormal Final Gram Stain 06/27/2023 10:21:46 Many Gram positive cocci Abnormal Final Gram Stain 06/27/2023 10:21:46 Occasional Gram positive bacilli Abnormal Final Test: Culture, Respiratory, Lower, Aerobic
Specimen Source: Sputum
Specimen Type: Lower Respiratory
Specimen Date: 06/27/2023 10:21 AM
Result Date: 06/29/2023 11:37 AM
Result Status: Final result
Abnormal: Yes
Resulting Lab: [facility]
[address]
[place] [address]

CULTURE

Moderate growth normal joyce

STAIN

Purulent specimen, >25 neutrophils/low power microscopic field.

Many Polymorphonuclear leukocytes

Many Gram positive cocci

Occasional Gram positive bacilli

null Performing Location LABORATORY [facility] - [address] [facility] [address]
--- OUTSIDE RECORDS SUMMARY | 2023-08-16 11:35 | External Medical Summary | Summary of Care ---
Author Name Unknown Organization [facility] Address [address] [place] [address] Phone [phone] Care Team Providers Care Electrician Refinery Name Role Phone Linda Baeza DO Primary Care Provider +1- [phone] Reason for Visit * Reason Onset Date Comments Advice 06/27/2023 Encounter Details Date Type Department Care Team Description 06/27/2023 Telephone Hematology/Oncology, [facility] [address] [place] [address] Donato Leary MD [address] [place] [address] Advice Allergies Active Allergy Reactions Severity Noted Date Comments Meperidine Hcl 02/19/2019 Lamotrigine Other (Please comment) Medium 07/19/2021 Causes patient to fall. Rofecoxib 11/06/2004 rash &swelling in legs, stumbling (vioxx) documented as of this encounter (statuses as of 06/27/2023) Medications Medication Sig Dispensed Refills Start Date [...] Capsule Take by mouth daily. 0 Active [place] 3 1000 MG Oral Capsule Take by mouth daily . 0 Active Tylenol PM Extra Strength 500-25 MG Oral Tablet (diphenhydrAMINE-A PAP (sleep)) Take 1 Tablet by mouth 3 times a day as needed for Sleep. 0 Active Saline 0.65 % Nasal Solution Administer 1 [place] into nostril as needed for Congestion. 0 [...] 50 MCG/ACT Nasal Suspension (Flonase) Administer 1 [place] into each nostril every evening. 0 07/08/2022 [...] as of this encounter (statuses as of 06/27/2023) Active Problems Problem Noted Date Dyslipidemia 09/11/2022 [...] as of this encounter (statuses as of 06/27/2023) Resolved Problems Problem Noted Date Resolved Date Asthma 09/11/2022 09/11/2022 Stage 3 chronic kidney disease 09/11/2022 1 11/12/2021 Stage 3 chronic kidney disease 09/11/2022 1 11/12/2021 CRF (chronic renal failure), stage 3 (moderate) 08/22/2021 04/25/2023 Seizure disorder 12/16/2020 09/11/2022 Asthma, mild persistent 04/30/2013 03/17/20 17 Tuberculosis, treated 07/30/2008 09/11/2022 documented as of this encounter (statuses as of 06/27/2023) Immunizations Name Administration Dates Next Due COVID-19 mRNA, LNP-s, No Pre serve, 2-Dose Series ([employer]) 06/07/2021,12/14/2020,11/23/2020 COVID-19, LNP-s, No Preserve , William-sucrose, [...] to this and will bring him to [facility]. Called [facility] ER and spoke to Eladia. [...] a return call at her earliest convenience. [phone] * Telephone Encounter - Carlos Pierre MD - 06/27/2023 10:38 AM EDT I reviewed [facility] records, -parainfluenza 3 detected by PCR. * Telephone Encounter - Franca Skaggs RN - 06/27/2023 10:23 AM EDT Called patient- he states that he did not go to ER. He states that he went to [facility] ER 06/25 and theytold him [...] Team Description 07/03/2023 Laboratory Laboratory Jonatan [address] [place] [address] 07/04/2023 Pharmacy [facility] [facility] Hem/Onc [address] [place] [address] 07/04/2023 Hem/Onc Treatment Hematology Oncology 07/31/2023 Laboratory Laboratory Jon[address] [place] [address] 08/01/2023 Office Visit Hematology Oncology Carlos Pierre MD [address] [place] [address] 08/01/2023 Hem/Onc Treatment Hematology Oncology [address], Chair [address] Hem Onc Scenery [address] [place] [address] 08/28/2023 Office Visit Urology Leland Carlos, Paul Bates MD [address] [place] [address] 10/31/2023 Office Visit Family Medicine Linda Baeza DO [address] [place] [address] 02/06/2024 Nurse Only [facility], Nurse Annual Wellness Cold [address] [place] [address] Health Maintenance Due Date Last Done Comments [...] this encounter Medical Devices Implanted Type Area Business Development Device Identifier Shelf Expiration Date Model / Serial / Lot Intraocular Lens Implanted:Qty: 1 on 01/12/2016 by Amari Loomis MD at OR [facility] Right: Eye 11/06/2018 MX60+11.0 / [id number] / [id number] documented as of this encounter Advance Directives Latest Code Status on File Code Status Date Activated Date Inactivated Comments Full Code 01/12/2016 9:49 AM 01/12/2016 3:56 PM This or shweta reflects the patients wishes and were consensually agreed upon. Care Teams Electrician Refinery Relationship Specialty Start Date End Date Linda Baeza DO [address] [facility] [place] [address] PCP - General Family Medicine 09/11/22 documented as of this encounter
--- OUTSIDE RECORDS SUMMARY | 2023-08-16 11:35 | External Medical Summary ---
Author Name Unknown Address Unknown Organization K01:LABORATORY [facility] - [address] [place] [id number] Laboratory Report Ordering Provider Test Date Status CHIN CLAY 06/27/2023 10:21:46 Final Observation Date Value Abnormality Reference (Units ) Status Bacteria identified in Specimen by Culture 06/27/2023 10:21:46 No Legionella species isolated Final Test: Culture, Legionella
Specimen Source: Sputum
Specimen Type: Lower Respiratory
Specimen Date: 06/27/2023 10:21 AM
Result Date: 07/07/2023 9:53 AM
Result Status: Final result
Resulting Lab: LAB[facility]ATORY [facility]
[address]
[place] [address]

CULTURE

No Legionella species isolated

null Performing Location LABORATORY [facility] - [address] [facility] [address]
--- OUTSIDE RECORDS SUMMARY | 2023-08-16 11:35 | External Medical Summary | Summary of Care ---
Author Name Unknown Organization [facility] Address [address] [place] [address] Phone [phone] Care Team Providers Care Marine Machinist Name Role Phone Aryan Lindachava Sharma DO Primary Care Provider +1- [phone] Reason for Visit * Reason Onset Date Comments case management 06/27/2023 Encounter Details Date Type Department Care Team Description 06/27/2023 Telephone Infectious Disease, [place] [address] [place], [place] [phone] Ector Polo DO [address] [place] [address] case management Allergies Active Allergy [...] Capsule Take by mouth daily. 0 Active [place] 3 1000 MG Oral Capsule Take by mouth daily . 0 Active Tylenol PM Extra Strength 500-25 MG Oral Tablet (diphenhydrAMINE-A PAP (sleep)) Take 1 Tablet by mouth 3 times a day as needed for Sleep. 0 Active Saline 0.65 % Nasal Solution Administer 1 [place] into nostril as needed for Congestion. 0 [...] 50 MCG/ACT Nasal Suspension (Flonase) Administer 1 [place] into each nostril every evening. 0 07/08/2022 [...] mRNA, LNP-s, No Pre serve, 2-Dose Series ([employer]) 06/07/2021,12/14/2020,11/23/2020 COVID-19, LNP-s, No Preserve , William-sucrose, Ages 12+ ([employer]) 02/08/2022 COVID-19, mRNA, LNP-s, PF, B ooster, [...] Encounter - Felicitas Devora Sharma RN - 07/01/2023 2:13 PM EDT Director Of Email Marketing Progress Note: Date: 07/01/23 Assigned Patient Tier: 2 Connected with patient's [...] paper review, EMR updated. Lives in a two story home with Caitlin. No DME used at this time. Independent in ADL'S/IADL'S and Caitlin is currently driving to appts. Denies smoking/drinking. Pt has an ACP in place. SDOH reviewed, no concerns atthis time. Caitlin reports they haven't received the nebulizer and there is an issue with the script ordered for medication to be used in [facility]. Caitlin also reports that she hasn't picked up his prednisone as of yet due to making phone calls and waiting for return calls. Pt audibly coughing in background,SOB reported on exertion. No distress noted during call. Instructed Caitlin to go to [facility] to poultry picker prednisone and CM would make calls about Nebulizer and medication. PC to PCP, Heme/Onc, ID, [facility] to attempt to assist with med order. Spoke with Maria Luz at [facility] pharmacy who reports that the order was for Levalbuterol 1.25 concentrated and they don't have that on hand and it's on back order. They have Levalbuterol 1.25/3ml on hand. Call made to Lucy from PCP office who deferred to Heme Onc. Spoke to Julee who reports she doesn't see an order for Levalbuterol and transferred to [facility]. Spoke with Tonya who was able to send a message to Dr. Polo and request an updated order be sent to [facility] in [place]. PC to Christy, spoke with Alia and updated her. PC to [place] [address] for update on Nebulizing equipment ordered. Did you receive an alert for an annual wellness visit? No Is this call for a hospital, long-term or rehab facility discharge to home? Yes [facility] to home. Admitted 06/27/23-06/30/23 . Dx: Viral Pneumonia Medication Reconciliation: Medication Reconciliation completed: yes Review of Current [...] or Red Flag 3: med/health questions or concerns Remote Patient Monitoring: At this time, RPM not offered/considered for patient due to checks pulse ox frequently.. Plan for Future Contacts: Plan to follow [...] to call with any changes in condition. SNP Member? No PCP Notified of enrollment in CM/HM program: Yes Is Provider in agreement with POC? Yes Felicitas Sharma, RN Outpatient Case Management 2 * Telephone Encounter - Shyla Ihsan Murcia - 06/27/2023 9:07 AM EDT Patient's called in to say that Tano has gotten a cold, they did have him tested for covid but was negative. Complaining of coughing, fatigue, nasal congestion. They had made pcp aware and was told to make ID aware as well. They have not gotten Tano's sputum culture completed yet, but plan to do so now that Tano is sick documented in this encounter Plan of Treatment Upcoming Encounters Date Type Specialty Care Team Description 07/03/2023 Laboratory Laboratory Jon[address] [place] [address] 07/04/2023 Pharmacy Pharmacy [facility] [place] Hem/Onc [address] [place] [address] 07/04/2023 Hem/Onc Treatment Hematology Oncology 07/10/2023 Office Visit Family Medicine Linda Baeza DO [address] [place] [address] 07/31/2023 Laboratory Laboratory Jonatan [address] [facility] [place] [address] 08/01/2023 Office Visit Hematology Oncology Carlos Pierre MD [address] [facility] [place] [address] 08/01/2023 Hem/Onc Treatment Hematology Oncology [place], [address] Hem Onc Scenery [address] [place] [address] 08/28/2023 Office Visit Urology Leland Carlos, Paul Bates MD [address] [facility] [address] [place] [address] 10/31/2023 Office Visit Family Medicine Linda Baeza DO [address] [place] [address] 02/06/2024 Nurse Only [facility], Nurse Annual Wellness Cold [address] [place] [address] Health Maintenance Due Date Last Done Comments [...] this encounter Medical Devices Implanted Type Area Bank Consultant Device Identifier Shelf Expiration Date Model / Serial / Lot Intraocular Lens Implanted:Qty: 1 on 01/12/2016 by Amari Loomis MD at OR [facility] Right: Eye 11/06/2018 MX60+11.0 / [id number] / [id number] documented as of this encounter Advance Directives Latest Code Status on File Code Status Date Activated Date Inactivated Comments Full Code 01/12/2016 9:49 AM 01/12/2016 3:56 PM This or shweta reflects the patients wishes and were consensually agreed upon. Care Teams Marine Machinist Relationship Specialty Start Date End Date Linda Baeza DO [address] [facility] [place] [address] PCP - General Family Medicine 09/11/22 documented as of this encounter
[2023-08-18 19:32] LABS: Anti Nuclear Antibody Screen NEGATIVE (NEGATIVE); Anti-Centromere Ab <1.0 NEG AI (<1.0 NEG); Anti-SS-A <1.0 NEG AI (<1.0 NEG); Anti-SS-B <1.0 NEG AI (<1.0 NEG); Complement C3 142 mg/dL (82-185); DNA ds Crithidia NEGATIVE (NEGATIVE); RNP Antibody <1.0 NEG AI (<1.0 NEG); Scleroderma Anti Scl-70 Ab <1.0 NEG AI (<1.0 NEG); Sm Antibody <1.0 NEG AI (<1.0 NEG)
== END 2023-08-15 13:44 | disposition home or self-care (01) | DRG 193 ==
LOC: ED 20:02 → EDINP 23:06 → SUATTDRO 23:06 → 2N 08-11 00:02
DX: A31.0 Pulmonary mycobacterial infection; J45.901 Unspecified asthma with (acute) exacerbation; C91.90 Lymphoid leukemia, unspecified not having achieved remission; J18.9 Pneumonia, unspecified organism; J96.01 Acute respiratory failure with hypoxia; Z86.15 Personal history of latent tuberculosis infection; N40.0 Benign prostatic hyperplasia without lower urinary tract symptoms; C34.90 Malignant neoplasm of unspecified part of unspecified bronchus or lung; D64.9 Anemia, unspecified; E78.5 Hyperlipidemia, unspecified; N18.30 Chronic kidney disease, stage 3 unspecified; Z22.8 Carrier of other infectious diseases; R73.9 Hyperglycemia, unspecified; D84.821 Immunodeficiency due to drugs; J47.9 Bronchiectasis, uncomplicated; Z88.8 Allergy status to other drugs, medicaments and biological substances; G40.909 Epilepsy, unspecified, not intractable, without status epilepticus; D80.3 Selective deficiency of immunoglobulin G [IgG] subclasses; I12.9 Hypertensive chronic kidney disease with stage 1 through stage 4 chronic kidney disease, or unspecified chronic kidney disease

== ENCOUNTER 2024-12-05 14:46 | Inpatient (IN) ==
--- OUTSIDE RECORDS SUMMARY | 2024-12-05 15:16 | External Medical Summary | Summary of Care ---
Author Name Unknown Organization [facility] Address [address] [place] [address] Phone [phone] Care Team Providers Care Telephone Directory Distributor Driver Name Role Phone Linda Baeza DO Primary Care Provider +1- [phone] Reason for Visit * Reason Comments IV Therapy IVIG * Episode Based Medications (Routine) - Authorized Specialty Diagnoses / Procedures Referred By Soham joel Referred To Contact Diagnoses CLL (chronic lymphocytic leukemia) (HCC) Hypogammaglobulinemia (HCC) Procedures RI INJ IVIG PRIVIGEN 500 MG Carlos Pierre MD 200 [facility] [place] [address] Phone: tel: fax: Hematology/Oncology Treatment, [place] DEPT CLOSED - 08/20/23 200 [facility] [place] [address] Phone: tel: fax: Referral ID Status Reason Start Date Expiration Date V isits Requested Visits Authorized [id number] Authorized 05/14/2023 04/21/[phone] Encounter Details Date Type Department Care Team (Latest Contact Info) Description 10/15/2024 10:00 AM EST Hem/Onc Treatment Hematology/Oncology Treatment, [place] [address] [place] [address] Gemma, Chair 10 Hem Onc Scene 200 [facility] [place] [address] CLL (chronic lymphocytic leukemia) (HCC)*; Hypogammaglobulinem ia ([facility]) Allergies Active Allergy Reactions Criticality Noted Date Comments Meperidine Hcl 02/19/2019 Lamotrigine Other (Please comment) Medium 07/19/2021 Causes patient to fall. Rofecoxib 11/06/2004 rash &swelling in legs, stumbling (vioxx) documented as of this encounter (statuses as of 11/17/2024) Medications NATURAL SUPPLEMENTIndic ations:Per Pt: to prevent arthritis Take by mouth. Vinegar/Honey Daily 0 0 005 Active Probiotic Product (PROBIOTIC ACIDOPHILUS BIOBEADS) Capsule Take 1 Capsule by mouth in the morning. Active Multiple Vitamins-Minera ls (MULTIVITAMIN MEN 50+) TABS Take by mouth 1 Tablet daily . Active [place] 3 1000 MG Oral Capsule Take by mouth daily . Active Saline 0.65 % Nasal Solution Administer 1 [place] into nostril as needed for Congestion. Active CoQ10 100 MG Oral Capsule Take by mouth daily. Active Benefiber Drink Mix Oral Packet Take 1 Dose by mouth daily. Active Privigen 40 GM/400ML Intravenous Solution (Immune Globulin Human-IVIG 10%) Administer 40 g intravenously Every Month. Every 28 days Active Breo Ellipta 200-25 MCG/ACT Inhalation Aerosol Powder Breath ActivatedIndica tions:Moderate persistent asthma without complication INHALE ONE PUFF BY MOUTH EVERY DAY 180 Each 2 4 9:32 AM EDT 024 Active Fluticasone Propionate 50 MCG/ACT Nasal SuspensionIndic ations:Asthma, moderate persistent Administer 2 Sprays into nostril in the morning. Each nostril. 16 g 1 024 Active ICaps AREDS Formula Oral Tablet Take 1 Tablet by mouth in the morning and 1 Tablet before bedtime. Active Calquence 100 MG Oral Tablet (Acalabrutinib Maleate)Indicat ions:CLL (chronic lymphocytic leukemia) ([facility]) Take 100 mg by mouth in the morning and 100 mg before bedtime. 60 Tablet 11 024 Active Finasteride 5 MG Oral Tablet (Proscar) Take 1 Tablet by mouth in the morning. 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 Basal cell carcinoma (BCC) of left shoulder 10/07 Claustrophobia 08/22/2021 CLL (chronic lymphocytic leukemia) 01/05/2021 Hypogammaglobulinemia 01/05/2021 Asthma, moderate persistent 03/17/2017 BPH without obstruction/lower urinary tract symp toms 07/30/2008 documented as of this encounter (statuses as of 11/17/2024) Resolved Problems Problem Noted Date Diagnosed Date Resolved Date Vasovagal episode 10/24/2023 10/31/2023 Acute respiratory failure with hypoxia 08/21/2023 10/31/2023 Heart failure 08/21/2023 08/26/2024 Dyslipidemia 09/11/2022 10/31/2023 Asthma 09/11/2022 09/11/2022 Stage 3 chronic kidney disease 09/11/2022 09/11/2022 Stage 3 chronic kidney disease 09/11/2022 09/11/2022 Dehydration 05/01/2022 10/31/2023 CRF (chronic renal failure), stage 3 (moderate) 08/22/2021 04/25/2023 Seizure disorder 12/16/2020 09/11/2022 Asthma, mild persistent 04/30/201303/07 Tuberculosis, treated 07/30/20082021 documented as of this encounter (statuses as of 11/17/2024) Immunizations Name Administration Dates Next Due COVID-19 mRNA, LNP-s, No Pre serve, 2-Dose Series (PhysicianPortal) 06/07/2021,12/14/2020,11/23/2020 COVID-19, LNP-s, No Preserve , William-sucrose, Ages 12+ (Pfizer) 02/08/2022 COVID-19, MRNA-LNP, 24-25, P F, 50 MCG/0.5ML, IM, 12 YRS & ABOVE (Moderna - Spikevax) 06/10/2024,02/07/2024 COVID-19, MRNA-LNP, 24-25, P R, 30MCG/0.3ML, IM, 12YRS AND ABOVE (Pfizer-Comirnaty) 07/11/2023 COVID-19, mRNA, LNP-s, PF, B ooster, 100mcg/0.5mg (Moderna) 02/07/2023,08/02/2021 Covid-19, Mrna, Lnp-s, Pf, B ivalent, 30 Mcg, IM, 12 yrs and above (Pfizer) 08/10/2022 Pneumococcal Conjugate Vacc, 13 Valent (Prevnar) 08/08/2015 Pneumococcal Polysaccharide PPV23 (Pneumovax) 03/20/2013 RSV Vac., Bivalent, Perfusio n F, Pf,0.5 Ml (Abrysvo) 07/29/2023 Seasonal Influenza Vac., MDV , IM, 0.5 mL (Fluzone) 06/12/2022,06/24/2019,06/13/2017,06/20,07/13/2011 Seasonal Influenza Virus Vac cine, Unspecified Formulation 05/31/2023,06/12/2022 Seasonal Influenza, High Dos e, Trivalent, PF, IM (Fluzone HD) 06/10/2024,06/21/2020,06/24/2019,07/07 Seasonal Influenza, Quadriva lent Hd (Fluzone Hd) 06/10/2024 Seasonal Influenza, Quadriva lent Hd, 65+ Yrs 06/21/2020 Seasonal Influenza, Recombin ant, RIV4, PF, (Flublock) 07/05/2021 Seasonal Influenza, Trivalen t, Adjuvanted, 65+ YRS, PF, (Fluad) 06/12/2022 TD - Tetanus/Diptheria (ADULT) 03/20/2013 TDAP, Age 7 and older, IM (Adacel) 03/10/2018, Zoster Vaccine Recombinant (Shingrix) 06/06/2018 ,04/02/2018 documented as of this encounter Social History Tobacco Use Types Packs/Day Years Used Date Smoking Tobacco: Never Smokeless Tobacco: Never Alcohol Use Standard Drinks/Week Comments Never 0 (1 standard drink = 0.6 oz pur e alcohol) PHQ-2 Answer Date Recorded PHQ Adult Total Score 0 07/07/2024 Hunger Vital Sign Answer Date Recorded Within the past 12 months, y ou worried that your food would run out before you got the money to buy more. Never true 07/07/20 24 Within the past 12 months, t he food you bought just didn't last and you didn't have money to get more. Never true 07/07/2024 Childcare Answer Date Recorded Do you feel overwhelmed with taking care of a child, family member or friend? No 07/07/2024 Does your family need help f inding childcare? (Household - for ages 0-17 years) Not on file 07/07/2024 Clothing Answer Date Recorded Have you been unable to get clothing when it was really needed? No 07/07/2024 Is your family able to get c lothes or diapers when needed? (Household - for ages 0-17 years) Not on file 07/07/2024 Personal Safety Answer Date Recorded Do you feel unsafe or have concerns for your saf ety? No 07/07/2024 Do you have concerns for you r family's safety? (Household - for ages 0-17 years) Not on file 07/07/2024 Utilities Answer Date Recorded Do you have trouble paying y our heating, water, or electric bill? No 07/07/2024 Is your family able to pay t he heat, water, or electric bill? (Household - for ages 0-17 years) Not on file 07/07/2024 Does your family have access to good internet? (Household - for ages 0-17 years) Not on file 07/07/2024 Employment Status Answer Date Recorded Are you unemployed or without regular income? No 07/07/2024 Does the household have a re gular source of income? (Household - for ages 0-17 years) Not on file 07/07/2024 Social Connections Answer Date Recorded How often do you feel lonely or isolated from th ose around you? Never 07/07/2024 Financial Resource Strain Answer Date R ecorded Do you have any trouble payi ng for your medications, or do you think you might in the future? No 07/07/2024 Does your family have troubl e paying for medicine? (Household - for ages 0-17 years) Not on file 07/07/2024 Transportation Needs Answer Date Record ed Do you have trouble getting a ride to medical visits or work? (Adult - for ages 18 years and over) Not on file 07/07/2024 Does your family have a hard time getting a ride to doctors visits? (Household - for ages 0-17 years) Not on file 07/07/2024 Has lack of transportation k ept you from medical appointments, meetings, work, or from getting things needed for daily living? Check all that apply. No 07/07/2024 Do you (or your family) have trouble finding or paying for a ride (transportation)? (Household - for ages 0-17 years) Not on file 07/07/2024 Housing Stability Answer Date Recorded Do you currently live in a s helter or have no steady place to sleep at night? No 07/07/2024 Do you think you are at risk of becoming homeless? (Adult - for ages 18 years and over) Not on file 07/07/2024 Does your family worry about paying for your home or becoming homeless? (Household - for ages 0-17 years) Not on file 1 Are you homeless or worried that you might be in the future? No 07/07/2024 Are you (or your family) caity eless or worried that you might be in the future? (Household - for ages 0-17 years) Not on file Food Insecurity Answer Date Recorded Do you need food for this week? No 07/07/2024 Are you able to get enough f ood for your family? (Household - for ages 0-17 years) Not on file 07/07/2024 Does your family need food t his week? (Household - for ages 0-17 years) Not on file 07/07/2024 Do you always have enough fo od for your family? (Household - for ages 0-17 years) Not on file 07/07/2024 Food Insecurity Answer Date Recorded Within the past 12 months, y ou worried that your food would run out before you got the money to buy more. Never true 07/07/20 24 Within the past 12 months, t he food you bought just didn't last and you didn't have money to get more. Never true 07/07/2024 Do you need food for this week? No 07/07/2024 Sex and Gender Information Value Date Recorded Sex Assigned at Male 08/13/2023 12:11 PM EST Legal Sex Male 6:18 AM EST Gender Identity Male 08/13/2023 12:11 PM EST Sexual Orientation Straight 08/13/2023 12 :11 PM EST documented as of this encounter Last Filed Vital Signs Vital Sign Reading Time Taken Comments Blood Pressure 120/53 10/15/2024 10:20 AM EST Pulse 63 10/15/2024 10:20 AM EST Temperature 36.5 C (97.7 F) 10/15/2024 10:[address] Respiratory Rate 16 10/15/2024 10:20 AM EST Oxygen Saturation 94% 10/15/2024 10:20 AM EST Inhaled Oxygen Concentration - - Weight 71.5 kg (157 lb 9.6 oz) 10/15/2024 10:20 AM EST Height - - Body Mass Index 22.61 08/26/2024 2:11 PM EST documented in this encounter Functional Status * Are you deaf or do you have serious difficulty hearing? Answer Date of Assessment Author No 09/08/2014 2:00 PM EST Rina Cooper TECH * Are you blind or do you have serious difficulty seeing, even when wearing glasses? Answer Date of Assessment Author No 09/08/2014 2:00 PM EST Rina Cooper TECH * Do you have serious difficulty walking or climbing stairs? (5 years old or older) Answer Date of Assessment Author No 09/08/2014 2:00 PM EST Rian Cooper TECH * Do you have difficulty dressing or bathing? (5 years old or older) Answer Date of Assessment Author No 09/08/2014 2:00 PM EST Rina Cooper TECH * Because of a physical, mental, or emotional condition, do you have difficulty doing errands alone such as visiting a doctors office or shopping? (15 years old or older) Answer Date of Assessment Author No 09/08/2014 2:00 PM EST Rina Cooper TECH documented as of this encounter Mental Status * Because of a physical, mental, or emotional condition, do you have serious difficulty concentrating, remembering, or making decisions? (5 years old or older) Answer Entry Date Author No 09/08/2014 2:00 PM EST Rina Cooper TECH documented in this encounter Nursing Notes * Sugar Rees RN - 10/15/2024 5:26 PM EST Goals: Patient will remain free from injury. Possible barriers to meeting goals: ambulating with IV pole Stability of the patient: Moderately stable - low risk of patient condition declining or worsening Summary regarding today's goals: Met: pt remained free of harm today Patient tolerated treatment well without any acute issues or problems. Patient left facility in stable condition and denied any further needs. * Sugar Rees RN - 10/15/2024 5:26 PM EST Chair 1. IV inserted, no issues. Patient is feeling well today, no complaints or concerns. Patient is here for IVIG infusion, labs WNL from yesterday. Patient instructed on use of heat and massage functions where applicable. Patient shown how to operate the heat function of the chair and to alert nursing staff if the chair feels too warm. Patient instructed on the risk of potential yanez while using the heat function. Safety and Risk for Injury Patient will remain free from injury. Ensure appropriate safety devices are available. Provide and maintain safe environment. documented in this encounter Plan of Treatment Upcoming Encounters Date Type Department Care Team (Late st Contact Info) Description 12/09/2024 10:20 AM EST Laboratory Laboratory [place] Jennie Patel [address] [place] [phone] Jonatan [place] [address] [place] [address] 12/10/2024 9:00 AM EST Pharmacy Pharmacy Hematology Oncology [facility] [address] [place] [address] [facility] Hem/Onc [address] [place] [address] 12/10/2024 11:30 AM EST Hem/Onc Treatment Hematology/Oncology Treatment, [place] [address] [place] [address] Gemma, Chair 1 Hem Onc [facility] 200 [facility] [place] [id number] 01/07/2025 11:30 AM EDT Office Visit Hematology/Oncology [facility] [place] [address] [facility] [place] [address] Carlos Pierre MD 200 [facility] [place] [id number] 02/11/2025 10:00 AM EDT Nurse Only Ancillary [address] [place] [address] [place], Nurse Annual Wellness Cold [address] [place] [address] 03/29/2025 10:30 AM EDT Office Visit Urology Ghada Fraser [address] [facility] [address] [place] [address] Paul Ha Jr., MD [address] [place] [address] 04/01/2025 11:00 AM EDT Office Visit Family Practice [address] [place] [phone] Linda Baeza DO [address] [place] [address] Health Maintenance Due Date Last Done Comments COVID-19 Vaccine ( season) 2024 06/10/2024, 02/07/2024, 07/11/2023, Additional history exists Albumin/Creatinine Ratio 11/27/2024 11/27/2023, 10/07 CKD PHOS USE SMARTSET 00996 11/27/2024 02/2 10/2023, 10/24/2022, 04/23/2021 Adult Wellness Visit 02/05/2025 02/06/2024, 12/14/19 23 GFR 05/11/2025 11/11/2024, 05/2025, 09/16/2024, Additional history exists Depression Screening 07/07/2025 07/07/2024, 02/06/20 24 CKD HGB USE SMARTSET 23575 11/11/202511/11, 11/11/2024, 10/14/2024, Additional history exists DTap/Tdap Vaccines (4 - Td or Tdap) 03/10/2028 03/10/2018, 03/20/2013, 10/31/2011 Pneumococcal Vaccine: 50+ Years Completed 08/08/2015, 03/20/2013 Zoster Vaccines Completed 06/06/2018, 04/02/2018 Influenza Vaccine (FLU shot) Completed 01/2024, 06/10/2024, 05/31/2023, Additional history exists HPV (Gardasil) Vaccine Aged Out No lo nger eligible based on patient's age to complete this topic Hepatitis B Vaccine Aged Out No longe r eligible based on patient's age to complete this topic MENINGOCOCCAL (MENACTRA/MENVEO) Aged Out No longer eligible based on patient's age to complete this topic documented as of this encounter Medical Devices Implanted Type Area Medical Anthropologist Device Identifier Shelf Expiration Date Model / Serial / Lot Intraocular Lens Implanted:Qty: 1 on 01/12/2016 by Amari Loomis MD at OR [facility] Right: Eye 11/06/2018 MX60+11.0 / [id number] / [id number] documented as of this encounter Visit Diagnoses Diagnosis CLL (chronic lymphocytic leukemia) (HCC)- Primary Chronic lymphoid leukemia, without mention of having achieved remission Hypogammaglobulinemia (HCC) Hypogammaglobulinaemia, unspecified documented in this encounter Administered Medications Inactive Administered Medications - up to 3 most recent administrations Medication Order MAR Action Action Date Dose Rate Site Acetaminophen (Tylenol) tab 650 mg 650 mg, Oral, ONCE PRN If previous infusion reaction with IVIG, Starting on Andreina 10/15/24 at 1115, Until Andreina 10/15/24 at 2129, Maximum of 4 grams (4000 mg) per day.Indications:CLL (chronic lymphocytic leukemia) (HCC),Hypogammaglobulinemia (HCC) Given 10/15/2024 10:14 AM EST 650 mg diphenhydrAMINE (Benadryl) cap 25 mg 25 mg, Oral, ONCE PRN If previous infusion reaction with IVIG, Starting on Andreina 10/15/24 at 1115, Until Andreina 10/15/24 at 2128Indications:CLL (chronic lymphocytic leukemia) (HCC),Hypogammaglobulinemia (HCC) Given 10/15/2024 10:15 AM EST 25 mg Immune Globulin Human- IVIG 10% (Privigen) IV 20 g 20 g, IV Piggyback, ONCE, 1 dose, On Andreina 10/15/24 at 1245, PRIVIGEN infusion instructions Infusion Rate [...] at the ending rate of the previous vialIndications:CLL (chronic lymphocytic leukemia) (HCC),Hypogammaglobulinemia (HCC) Start Infusion 10/15/2024 11:34 AM EST 20 g 350 mL/hr Immune Globulin Human-IVIG 10% (Privigen) IV 10 g 10 g, IV Piggyback, ONCE, 1 dose, On Andreina 10/15/24 at 1145, PRIVIGEN infusion instructions Infusion Rate [...] at the ending rate of the previous vialIndications:CLL (chronic lymphocytic leukemia) (HCC),Hypogammaglobulinemia (HCC) Rate Change 10/15/2024 11:20 AM EST 175 mL/hr Rate Change 10/15/2024 11:03 AM EST 88 mL/hr Rate Change 10/15/2024 10:47 AM EST 44 mL/hr NSS infusion 500 mL, Intravenous, at 50 mL/hr Administer over 10 Hours, PRN, Starting on Andreina 10/15/24 at 1115, Until Andreina 10/15/24 at 2114, Other, maintain lineIndications:CLL (chronic lymphocytic leukemia) (HCC),Hypogammaglobulinemia (HCC) Start Infusion 10/15/2024 10:13 AM EST 500 mL 50 mL/hr documented in this encounter Advance Directives * Full Code (Latest Code Status on File) Date Activated Date Inactivated Comments 01/12/2016 9:49 AM 01/12/2016 3:56 PM This order ref lects the patients wishes and were consensually agreed upon. Care Teams Telephone Directory Distributor Driver Relationship Specialty Start Date End Date Linda Baeza DO [address] [facility] [place] [address] PCP - General Family Medicine 09/11/22 documented as of this encounter
--- OUTSIDE RECORDS SUMMARY | 2024-12-05 15:16 | External Medical Summary | Summary of Care ---
Author Name Unknown Organization [facility] Address [address] [place] [address] Phone [phone] Care Team Providers Care Craft Center Director Name Role Phone Linda Baeza DO Primary Care Provider +1- [phone] Reason for Visit * Reason Comments IV Therapy IVIG * Episode Based Medications (Routine) - Authorized Specialty Diagnoses / Procedures Referred By Soham joel Referred To Contact Diagnoses CLL (chronic lymphocytic leukemia) (HCC) Hypogammaglobulinemia (HCC) Procedures CA INJ IVIG PRIVIGEN 500 MG Carlos Pierre MD 200 [facility] [place] [address] Phone: tel: fax: Hematology/Oncology Treatment, [place] DEPT CLOSED - 08/20/23 200 [facility] [place] [address] Phone: tel: fax: Referral ID Status Reason Start Date Expiration Date V isits Requested Visits Authorized [id number] Authorized 05/14/2023 04/21/[phone] Encounter Details Date Type Department Care Team (Latest Contact Info) Description 10/15/2024 10:00 AM EST Hem/Onc Treatment Hematology/Oncology Treatment, [place] [address] [place] [address] Gemma, Chair 10 Hem Onc Scene 200 [facility] [place] [address] CLL (chronic lymphocytic leukemia) (HCC)*; Hypogammaglobulinem ia ([facility]) Allergies Active Allergy Reactions Criticality Noted Date [...] by mouth 1 Tablet daily . Active [place] 3 1000 MG Oral Capsule Take by mouth daily . Active Saline 0.65 % Nasal Solution Administer 1 [place] into nostril as needed for Congestion. Active [...] (Acalabrutinib Maleate)Indicat ions:CLL (chronic lymphocytic leukemia) ([facility]) Take 100 mg by mouth in the [...] mRNA, LNP-s, No Pre serve, 2-Dose Series ([email or web address]) 06/07/2021,12/14/2020,11/23/2020 COVID-19, LNP-s, No Preserve , William-sucrose, [...] Rina Cooper TECH * Do you have difficulty [...] Description 12/09/2024 10:20 AM EST Laboratory Laboratory [place] Jennie Patel [address] [place] [phone] Jonatan [address] [place] [address] [place] [address] [address] 12/10/2024 9:00 AM EST Pharmacy Pharmacy Hematology Oncology [facility] [address] [place] [address] [facility] [place] Hem/Onc [address] [place] [address] 12/10/2024 11:30 AM EST Hem/Onc Treatment Hematology/Oncology Treatment, [place] [address] [place] [address] Gemma, Chair 1 Hem Onc [facility] [address] [facility] [place] [id number] 01/07/2025 11:30 AM EDT Office Visit Hematology/Oncology [facility] [place] [address] [facility] [place] [address] Carlos Pierre MD [address] [facility] [place] [id number] 02/11/2025 10:00 AM EDT Nurse Only Ancillary [address] [place] [address] [place], Nurse Annual Wellness Cold [address] [place] [address] 03/29/2025 10:30 AM EDT Office Visit Urology Ghada Fraser [address] [facility] [address] [place] [address] Paul Ha Jr., MD [address] [place] [address] 04/01/2025 11:00 AM EDT Office Visit Family Practice [address] [place] [phone] Linda Baeza DO [address] [place] [address] Health Maintenance Due Date Last Done Comments COVID-19 Vaccine ( season) 2024 06/10/2024, 02/07/2024, 07/11/2023, Additional history exists Albumin/Creatinine Ratio 11/27/2024 11/27/2023, 10/07 CKD PHOS USE SMARTSET [id number] 11/27/2024 02/2 10/2023, 10/24/2022, 04/23/2021 Adult Wellness Visit 02/05/2025 02/06/2024, 12/14/19 23 GFR 05/11/2025 11/11/2024, 05/2025, 09/16/2024, Additional history exists Depression Screening 07/07/2025 07/07/2024, 02/06/20 24 CKD HGB USE SMARTSET 97316 11/11/202511/11, 11/11/2024, 10/14/2024, Additional history exists DTap/Tdap [...] this encounter Medical Devices Implanted Type Area Area Development Consultant Device Identifier Shelf Expiration Date Model / Serial / Lot Intraocular Lens Implanted:Qty: 1 on 01/12/2016 by Amari Loomis MD at OR [facility] Right: Eye 11/06/2018 MX60+11.0 / [id number] / [id number] documented as of this encounter Visit Diagnoses [...] and were consensually agreed upon. Care Teams Craft Center Director Relationship Specialty Start Date End Date Linda Baeza DO [address] [facility] [place] [address] PCP - General Family Medicine 09/11/22 documented as of this encounter
--- OUTSIDE RECORDS SUMMARY | 2024-12-05 15:16 | External Medical Summary | Summary of Care ---
Author Name Unknown Organization [facility] Address [address] [place] [address] Phone [phone] Care Team Providers Care Printing Bindery Assistant Name Role Phone Deana Baeza DO Primary Care Provider +1- [phone] Reason for Visit * Reason Onset Date Comments Medication Refill 11/17/2024 Encounter Details Date Type Department Care Team (Late st Contact Info) Description 11/17/2024 Refill Family Practice [facility] [address] [place] [address] Deana Baeza DO [address] [place] [address] Asthma, moderate persistent Allergies Active Allergy Reactions Criticality Noted Date Comments Meperidine Hcl 02/19/2019 Lamotrigine Other (Please comment) Medium 07/19/2021 Causes patient to fall. Rofecoxib 11/06/2004 rash &swelling in legs, stumbling (vioxx) documented as of this encounter (statuses as of 11/18/2024) Medications NATURAL SUPPLEMENTIndica tions:Per Pt: to prevent arthritis Take by mouth. Vinegar/Honey Daily 0 0 07/12/20 05 Active Probiotic Product (PROBIOTIC ACIDOPHILUS BIOBEADS) Capsule Take 1 Capsule by mouth in the morning. Active Multiple Vitamins-Mineral s (MULTIVITAMIN MEN 50+) TABS Take by mouth 1 Tablet daily . Active [place] 3 1000 MG Oral Capsule Take by mouth daily . Active Saline 0.65 % Nasal Solution Administer 1 [place] into nostril as needed for Congestion. Active CoQ10 100 MG Oral Capsule Take by mouth daily. Active Benefiber Drink Mix Oral Packet Take 1 Dose by mouth daily. Active Privigen 40 GM/400ML Intravenous Solution (Immune Globulin Human-IVIG 10%) Administer 40 g intravenously Every Month. Every 28 days Active Breo Ellipta 200-25 MCG/ACT Inhalation Aerosol Powder Breath ActivatedIndicat ions:Moderate persistent asthma without complication INHALE ONE PUFF BY MOUTH EVERY DAY 180 Each 2 5 11:58 AM EST 04/08/20 24 Active ICaps AREDS Formula Oral Tablet Take 1 Tablet by mouth in the morning and 1 Tablet before bedtime. Active Calquence 100 MG Oral Tablet (Acalabrutinib Maleate)Indicati ons:CLL (chronic lymphocytic leukemia) (HCC) Take 100 mg by mouth in the morning and 100 mg before bedtime. 60 Tablet 11 08/03/20 24 Active Finasteride 5 MG Oral Tablet (Proscar) Take 1 Tablet by mouth in the morning. 90 Tablet 3 11/12/19 25 Active Fluticasone Propionate 50 MCG/ACT Nasal SuspensionIndica tions:Asthma, moderate persistent Administer 2 Sprays into nostril in the morning. Each nostril. 48 g 1 11/18/19 25 Active Fluticasone Propionate 50 MCG/ACT Nasal SuspensionIndica tions:Asthma, moderate persistent Administer 2 Sprays into nostril in the morning. Each nostril. 16 g 1 06/12/20 24 025 Discontin ued(Refil l) documented as of this encounter (statuses as of 11/18/2024) Active Problems Problem Noted Date Diagnosed Date [...] as of this encounter (statuses as of 11/18/2024) Resolved Problems Problem Noted Date Diagnosed Date [...] as of this encounter (statuses as of 11/18/2024) Immunizations Name Administration Dates Next Due COVID-19 mRNA, LNP-s, No Pre serve, 2-Dose Series (Edico Genome) 06/07/2021,12/14/2020,11/23/2020 COVID-19, LNP-s, No Preserve , William-sucrose, [...] 07/07/2024 Does the household have a re lar source of income? (Household - for ages [...] PM EST documented as of this encounter Functional Status * Are you deaf or do you have serious difficulty hearing? Answer Date of Assessment Author No 09/08/2014 2:00 PM Rina Sorto TECH * Are you blind or do you have serious difficulty seeing, even when wearing glasses? Answer Date of Assessment Author No 09/08/2014 2:00 PM Rina Sorto TECH * Do you have serious difficulty walking or climbing stairs? (5 years old or older) Answer Date of Assessment Author No 09/08/2014 2:00 PM Rina Sorto TECH * Do you have difficulty dressing or bathing? (5 years old or older) Answer Date of Assessment Author No 09/08/2014 2:00 PM Rina Sorto TECH * Because of a physical, mental, or emotional condition, do you have difficulty doing errands alone such as visiting a doctors office or shopping? (15 years old or older) Answer Date of Assessment Author No 09/08/2014 2:00 PM Rina Sorto TECH documented as of this encounter Mental Status * Because of a physical, mental, or emotional condition, do you have serious difficulty concentrating, remembering, or making decisions? (5 years old or older) Answer Entry Date Author No 09/08/2014 2:00 PM Rina Sorto TECH documented in this encounter Miscellaneous Notes * Telephone Encounter - Lalo Merrill RPh - 11/18/2024 12:04 PM ESTSigned Prescriptions: Disp Refills Fluticasone Propionate 50 MCG/ACT Nasal Ybarra*48 g 1 Sig: Administer 2 Sprays into nostril in the morning. Each nostril.Authorizing Provider: DEANA BAEZA User: LALO MERRILL documented in this encounter Plan of Treatment Upcoming Encounters Date Type Department Care Team (Late st Contact Info) Description 12/09/2024 10:20 AM EST Laboratory Laboratory [address] [place] [id number] [place], [address] [place] [address] 12/10/2024 9:00 AM EST Pharmacy Pharmacy Hematology Oncology [facility] [address] [place] [address] [facility] Hem/Onc [address] [place] [address] 12/10/2024 11:30 AM EST Hem/Onc Treatment Hematology/Oncology Treatment, [place] [address] [place] [address] Gemma, Chair 1 Hem Onc [facility] [address] [place] [address] 01/07/2025 11:30 AM EDT Office Visit Hematology/Oncology [facility] [place] [address] [place] [address] Carlos Pierre MD [address] [facility] [address] 02/11/2025 10:00 AM EDT Nurse Only [place]illary [place] [address] [place] [address] [place], Nurse Annual Wellness [place] [address] [place] [place] [address] 03/29/2025 10:30 AM EDT Office Visit Urology Ghada Fraser [address] [facility] [address] [place] [address] Paul Ha Jr., MD [address] [place] [address] 04/01/2025 11:00 AM EDT Office Visit Family Practice [address] [place] [address] [place] [place] [address] Deana Baeza DO [address] [place] [place] [address] Health Maintenance Due Date Last Done Comments COVID-19 Vaccine ( season) 2024 06/10/2024, 02/07/2024, 07/11/2023, Additional history exists Albumin/Creatinine Ratio 11/27/2024 11/27/2023, 10/07 CKD PHOS USE SMARTSET 46946 11/27/202411/08, 10/24/2022, 04/23/2021 Adult Wellness Visit 02/05/2025 02/06/2024, 12/14/19 23 GFR 05/11/2025 11/11/2024, 05/2025, 09/16/2024, Additional history exists Depression Screening 07/07/2025 07/07/2024, 02/06/20 24 CKD HGB USE SMARTSET 42271 11/11/202511/11, 11/11/2024, 10/14/2024, Additional history exists DTap/Tdap [...] this encounter Medical Devices Implanted Type Area Certified Welding Inspector Device Identifier Shelf Expiration Date Model / Serial / Lot Intraocular Lens Implanted:Qty: 1 on 01/12/2016 by Amari Loomis MD at OR [facility] Right: Eye 11/06/2018 MX60+11.0 / [id number] / [id number] documented as of this encounter Visit Diagnoses Diagnosis Asthma, moderate persistent Unspecified asthma documented in this encounter Advance Directives * Full Code (Latest Code Status on File) Date Activated Date Inactivated Comments 01/12/2016 9:49 AM 01/12/2016 3:56 PM This order ref lects the patients wishes and were consensually agreed upon. Care Teams Printing Bindery Assistant Relationship Specialty Start Date End Date Deana Baeza DO [address] [facility] [place] [address] PCP - General Family Medicine 09/11/22 documented as of this encounter
--- OUTSIDE RECORDS SUMMARY | 2024-12-05 15:16 | External Medical Summary | Summary of Care ---
Author Name Unknown Organization [facility] Address [address] [place] [address] Phone [phone] Care Team Providers Care Flat Sorting Machine Clerk Name Role Phone Linda Baeza DO Primary Care Provider +1- [phone] Reason for Visit * Reason Comments IV Therapy IVIG * Episode Based Medications (Routine) - Authorized Specialty Diagnoses / Procedures Referred By Soham joel Referred To Contact Diagnoses CLL (chronic lymphocytic leukemia) (HCC) Hypogammaglobulinemia (HCC) Procedures [place] INJ IVIG PRIVIGEN 500 MG Carlos Pierre MD [address] [facility] [place] [address] Phone: tel: fax: Hematology/Oncology Treatment, [place] DEPT CLOSED - 08/20/23 [address] [facility] [place] [address] Phone: tel: fax: Referral ID Status Reason Start Date Expiration Date V isits Requested Visits Authorized [id number] Authorized 05/14/2023 04/21/[id number] Encounter Details Date Type Department Care Team (Latest Contact Info) Description 10/15/2024 10:00 AM EST Hem/Onc Treatment Hematology/Oncology Treatment, [place] [address] [place] [address] Gemma, Chair 10 Hem Onc [place] [address] [facility] [place] [address] CLL (chronic lymphocytic leukemia) (HCC)*; Hypogammaglobulinem ia ([facility]) Allergies Active Allergy Reactions Criticality Noted Date [...] by mouth 1 Tablet daily . Active [place] 3 1000 MG Oral Capsule Take by mouth daily . Active Saline 0.65 % Nasal Solution Administer 1 [place] into nostril as needed for Congestion. Active [...] Tablet (Acalabrutinib Maleate)Indicat ions:CLL (chronic lymphocytic leukemia) ([facility]) Take 100 mg by mouth in the [...] mRNA, LNP-s, No Pre serve, 2-Dose Series (Lecturio) 06/07/2021,12/14/2020,11/23/2020 COVID-19, LNP-s, No Preserve , William-sucrose, [...] Description 12/09/2024 10:20 AM EST Laboratory Laboratory [place] [address] [place] [phone] [address] [place] [address] [place] [address] 12/10/2024 9:00 AM EST Pharmacy Pharmacy Hematology Oncology [facility] [address] [place] [address] [facility], [facility] Hem/Onc [address] [place] [address] 12/10/2024 11:30 AM EST Hem/Onc Treatment Hematology/Oncology Treatment, [place] [address] [place] [address] Gemma, Chair 1 Hem Onc [facility] [address] [facility] [place] [id number] 01/07/2025 11:30 AM EDT Office Visit Hematology/Oncology [facility] [place] [address] [facility] [place] [address] Carlos Pierre MD [address] [facility] [place] [id number] 02/11/2025 10:00 AM EDT Nurse Only Ancillary [address] [place] [address] [place], Nurse Annual Wellness [place] [address] [place] [address] 03/29/2025 10:30 AM EDT Office Visit Urology Ghada Fraser [address] [facility] [address] [place] [address] Paul Ha Jr., MD [address] [place] [address] 04/01/2025 11:00 AM EDT Office Visit Family Practice [address] [place] [id number] Linda Baeza DO [address] [place] [address] Health Maintenance Due Date Last Done Comments COVID-19 Vaccine ( season) 2024 06/10/2024, 02/07/2024, 07/11/2023, Additional history exists Albumin/Creatinine Ratio 11/27/2024 11/27/2023, 10/07 CKD PHOS USE SMARTSET 83652 11/27/2024 02/2 10/2023, 10/24/2022, 04/23/2021 Adult Wellness Visit 02/05/2025 02/06/2024, 12/14/19 23 GFR 05/11/2025 11/11/2024, 05/2025, 09/16/2024, Additional history exists Depression Screening 07/07/2025 07/07/2024, 02/06/20 24 CKD HGB USE SMARTSET 95606 11/11/202511/11, 11/11/2024, 10/14/2024, Additional history exists DTap/Tdap [...] this encounter Medical Devices Implanted Type Area Director Of Clinical Trials Device Identifier Shelf Expiration Date Model / Serial / Lot Intraocular Lens Implanted:Qty: 1 on 01/12/2016 by Amari Loomis MD at OR [facility] Right: Eye 11/06/2018 MX60+11.0 / [id number] / [id number] documented as of this encounter Visit Diagnoses [...] and were consensually agreed upon. Care Teams Flat Sorting Machine Clerk Relationship Specialty Start Date End Date Linda Baeza DO [address] [facility] [place] [address] PCP - General Family Medicine 09/11/22 documented as of this encounter
--- OUTSIDE RECORDS SUMMARY | 2024-12-05 15:16 | External Medical Summary | Summary of Care ---
Author Name Unknown Organization [facility] Address [address] [place] [address] Phone [phone] Care Team Providers Care Incinerator Plant Supervisor Name Role Phone Linda Baeza DO Primary Care Provider +1- [phone] Reason for Visit * Reason Comments Infusion C48 D1 IVIG * Episode Based Medications (Routine) - Authorized Specialty Diagnoses / Procedures Referred By Contpauly t Referred To Contact Diagnoses CLL (chronic lymphocytic leukemia) (HCC) Hypogammaglobulinemia (HCC) Procedures [place] INJ IVIG PRIVIGEN 500 MG Carlos Pierre MD [address] [place] [address] Phone: tel: fax: Hematology/Oncology Treatment, [place] DEPT CLOSED - 08/20/23 [address] [facility] [place] [address] Phone: tel: fax: Referral ID Status Reason Start Date Expiration Date V isits Requested Visits Authorized [id number] Authorized 05/14/2023 04/21/2025 [id number] Encounter Details Date Type Department Care Team (Latest Contact Info) Description 11/12/2024 11:15 AM EST Hem/Onc Treatment Hematology/Oncology Treatment, [place] [address] [place] [address] Gemma, Chair 4 Hem Onc [address] [facility] [place] [address] CLL (chronic lymphocytic leukemia) (HCC)*; Hypogammaglobulinem ia ([facility]) Allergies Active Allergy Reactions Criticality Noted Date Comments Meperidine Hcl 02/19/2019 Lamotrigine Other (Please comment) Medium 07/19/2021 Causes patient to fall. Rofecoxib 11/06/2004 rash &swelling in legs, stumbling (vioxx) documented as of this encounter (statuses as of 11/16/2024) Medications NATURAL SUPPLEMENTIndica tions:Per Pt: to prevent arthritis Take by mouth. Vinegar/Honey Daily 0 0 07/12/20 05 Active Probiotic Product (PROBIOTIC ACIDOPHILUS BIOBEADS) Capsule Take 1 Capsule by mouth in the morning. Active Multiple Vitamins-Mineral s (MULTIVITAMIN MEN 50+) TABS Take by mouth 1 Tablet daily . Active [place] 3 1000 MG Oral Capsule Take by mouth daily . Active Saline 0.65 % Nasal Solution Administer 1 [place] into nostril as needed for Congestion. Active [...] BY MOUTH EVERY DAY 180 Each 2 07/13/2024 9:32 AM EDT 04/08/20 24 Active Fluticasone Propionate 50 MCG/ACT Nasal SuspensionIndica tions:Asthma, moderate persistent Administer 2 Sprays into nostril in the morning. Each nostril. 16 g 1 06/12/20 24 Active ICaps AREDS Formula Oral Tablet Take 1 Tablet by mouth in the morning and 1 Tablet before bedtime. Active Calquence 100 MG Oral Tablet (Acalabrutinib Maleate)Indicati ons:CLL (chronic lymphocytic leukemia) ([facility]) Take 100 mg by mouth in the morning and 100 mg before bedtime. 60 Tablet 11 08/03/20 24 Active Finasteride 5 MG Oral Tablet (Proscar) Take 1 Tablet by mouth in the morning. 90 Tablet 3 11/12/19 Active documented as of this encounter (statuses as of 11/16/2024) Active Problems Problem Noted Date Diagnosed Date [...] as of this encounter (statuses as of 11/16/2024) Resolved Problems Problem Noted Date Diagnosed Date [...] as of this encounter (statuses as of 11/16/2024) Immunizations Name Administration Dates Next Due COVID-19 mRNA, LNP-s, No Pre serve, 2-Dose Series (AbsolutData) 06/07/2021,12/14/2020,11/23/2020 COVID-19, LNP-s, No Preserve , William-sucrose, Ages 12+ (AbsolutData) 02/08/2022 COVID-19, MRNA-LNP, 24-25, P F, 50 [...] Sign Reading Time Taken Comments Blood Pressure 123/63 11/12/2024 11:22 AM EST Pulse 65 11/12/2024 11:22 AM EST Temperature 36.7 C (98.1 F) 11/12/2024 11:[address] Respiratory Rate 16 11/12/2024 11:22 AM EST Oxygen Saturation 95% 11/12/2024 11:22 AM EST Inhaled Oxygen Concentration - - Weight - - Height - - Body Mass Index - - documented in this encounter Functional Status * [...] documented in this encounter Nursing Notes * Micki Bertrand RN - 11/12/2024 12:19 PM EST Chair 2 Patient here for treatment. Patient offers no acute complaints. PIV started with brisk blood return. Patient instructed on use of heat in chair. Patient shown how to operate the heat [...] Description 12/09/2024 10:20 AM EST [facility] [address] [facility] [place] [phone] [place], Lab [facility] [address] [facility] [place] [address] 12/10/2024 9:00 AM EST Pharmacy Pharmacy Hematology Oncology [place] [address] [place] [address] [facility] [place] Hem/Onc [address] [place] [address] 12/10/2024 11:30 AM EST Hem/Onc Treatment Hematology/Oncology Treatment, [place] [address] [place] [address] Gemma, Chair 1 Hem Onc Scenery [address] [facility] [place] [address] 01/07/2025 11:30 AM EDT Office Visit Hematology/Oncology [facility] [place] Menendez [address] [facility] [place] [address] Carlos Pierre MD 200 [facility] [place] [address] 02/11/2025 10:00 AM EDT Nurse Only [facility]illary [place] [address] [place] [address] [place], Nurse Annual Wellness [place] [address] [place] [address] 03/29/2025 10:30 AM EDT Office Visit Urology Ghada Fraser [address] [place] [address] Paul Ha Jr., MD [address] [place] [id number] 04/01/2025 11:00 AM EDT Office Visit Family Practice [address] [address] [address] [place], [place] [address] Linda Baeza, [address] [place] [address] Health Maintenance Due Date Last Done Comments COVID-19 Vaccine ( season) 2024 06/10/2024, 02/07/2024, 07/11/2023, Additional history exists Albumin/Creatinine Ratio 11/27/2024 11/27/2023, 10/07 CKD PHOS USE SMARTSET 95813 11/27/2024 02/10/2023, 10/24/2022, 04/23/2021 Adult Wellness Visit 02/05/2025 02/06/2024, 12/14/19 23 GFR 05/11/2025 11/11/2024, 05/2025, 09/16/2024, Additional history exists Depression Screening 07/07/2025 07/07/2024, 02/06/20 24 CKD HGB USE SMARTSET 58536 11/11/202511/11, 11/11/2024, 10/14/2024, Additional history exists DTap/Tdap [...] this encounter Medical Devices Implanted Type Area Doping Supervisor Device Identifier Shelf Expiration Date Model / Serial / Lot Intraocular Lens Implanted:Qty: 1 on 01/12/2016 by Amari Loomis MD at OR [facility] Right: Eye 11/06/2018 MX60+11.0 / [id number] / [id number] documented as of this encounter Visit Diagnoses [...] infusion reaction with IVIG, Starting on Andreina 11/12/24 at 1230, Until Andreina 11/12/24 at 1750, Maximum of 4 grams (4000 mg) per day.Indications:CLL (chronic lymphocytic leukemia) (HCC),Hypogammaglobulinemia (HCC) Given 11/12/2024 11:29 AM EST 650 mg diphenhydrAMINE (Benadryl) cap 25 mg 25 mg, Oral, ONCE PRN If previous infusion reaction with IVIG, Starting on Andreina 11/12/24 at 1230, Until Andreina 11/12/24 at 1750Indications:CLL (chronic lymphocytic leukemia) (HCC),Hypogammaglobulinemia (HCC) Given 11/12/2024 11:29 AM EST 25 mg Immune Globulin Human- IVIG 10% (Privigen) IV 20 g 20 g, IV Piggyback, ONCE, 1 dose, On Sat11/12/24 at 1400, PRIVIGEN infusion instructions Infusion Rate VTBI 0.005 [...] (chronic lymphocytic leukemia) (HCC),Hypogammaglobulinemia (HCC) Rate Change 11/12/2024 12:59 PM EST 350 mL/hr Start Infusion 11/12/2024 12:55 PM EST 20 g 175 mL/h r Immune Globulin Human-IVIG 10% (Privigen) IV 10 g 10 g, IV Piggyback, ONCE, 1 dose, On Sat11/12/24 at 1300, PRIVIGEN infusion instructions Infusion Rate VTBI 0.005 [...] (chronic lymphocytic leukemia) (HCC),Hypogammaglobulinemia (HCC) Rate Change 11/12/2024 12:40 PM EST 175 mL/hr Rate Change 11/12/2024 12:26 PM EST 88 mL/hr Rate Change 11/12/2024 12:11 PM EST 44 mL/hr NSS infusion 500 mL, Intravenous, at 50 mL/hr Administer over 10 Hours, PRN, Starting on Sat11/12/24 at 1230, Until Andreina 11/12/24 at 1750, Other, maintain lineIndications:CLL (chronic lymphocytic leukemia) (HCC),Hypogammaglobulinemia (HCC) Start Infusion 11/12/2024 11:36 AM EST 500 mL 50 mL/hr documented in this encounter Advance Directives * Full Code (Latest Code Status on File) Date Activated Date Inactivated Comments 01/12/2016 9:49 AM 01/12/2016 3:56 PM This order ref lects the patients wishes and were consensually agreed upon. Care Teams Incinerator Plant Supervisor Relationship Specialty Start Date End Date Linda Baeza DO [address] [facility] [place] [address] PCP - General Family Medicine 09/11/22 documented as of this encounter
--- OUTSIDE RECORDS SUMMARY | 2024-12-05 15:16 | External Medical Summary | Summary of Care ---
Author Name Unknown Organization [facility] Address [address] [place] [address] Phone [phone] Care Team Providers Care Dermatology Sales Representative Name Role Phone Linda Baeza DO Primary Care Provider +1- [phone] Reason for Visit * Reason Comments IV Therapy IVIG * Episode Based Medications (Routine) - Authorized Specialty Diagnoses / Procedures Referred By Soham joel Referred To Contact Diagnoses CLL (chronic lymphocytic leukemia) (HCC) Hypogammaglobulinemia (HCC) Procedures NM INJ IVIG PRIVIGEN 500 MG Carlos Pierre MD [address] [facility] [place] [address] Phone: tel: fax: Hematology/Oncology Treatment, [place] DEPT CLOSED - 08/20/23 [address] [facility] [place] [address] Phone: tel: fax: Referral ID Status Reason Start Date Expiration Date V isits Requested Visits Authorized [id number] Authorized 05/14/2023 04/21/2025 [id number] Encounter Details Date Type Department Care Team (Latest Contact Info) Description 10/15/2024 10:00 AM EST Hem/Onc Treatment Hematology/Oncology Treatment, [place] [address] [place] [address] Gemma, Chair 10 Hem Onc Scene [address] [facility] [place] [address] CLL (chronic lymphocytic leukemia) (HCC)*; Hypogammaglobulinem ia ([facility]) Allergies Active Allergy Reactions Criticality Noted [...] by mouth 1 Tablet daily . Active Mccammon 3 1000 MG Oral Capsule Take by mouth daily . Active Saline 0.65 % Nasal Solution Administer 1 Roundup into nostril as needed for Congestion. Active [...] (Acalabrutinib Maleate)Indicat ions:CLL (chronic lymphocytic leukemia) ([facility]) Take 100 mg by mouth in [...] mRNA, LNP-s, No Pre serve, 2-Dose Series (HeyAnita) 06/07/2021,12/14/2020,11/23/2020 COVID-19, LNP-s, No Preserve , William-sucrose, [...] Description 12/09/2024 10:20 AM EST Laboratory [facility] [place] [address] [place] [phone] Jonatan [place] [address] [place] [address] 12/10/2024 9:00 AM EST Pharmacy Pharmacy Hematology Oncology [facility] [address] [place] [address] [facility] Hem/Onc [address] [place] [address] 12/10/2024 11:30 AM EST Hem/Onc Treatment Hematology/Oncology Treatment, [place] [address] [place] [address] Gemma, Chair 1 Hem Onc [facility] [address] [facility] [place] [id number] 01/07/2025 11:30 AM EDT Office Visit Hematology/Oncology [facility] [place] [address] [facility] [place] [address] Carlos Pierre MD [address] [facility] [place] [id number] 02/11/2025 10:00 AM EDT Nurse Only Ancillary [address] [place] [address] [place], Nurse Annual Wellness [place] [address] [place] [address] 03/29/2025 10:30 AM EDT Office Visit Urology Ghada Fraser [address] [facility] [address] [place] [address] Paul Ha Jr., MD [address] [place] [address] 04/01/2025 11:00 AM EDT Office Visit Family Practice [address] [place] [phone] Linda Baeza DO [address] [place] [address] Health Maintenance Due Date Last Done Comments COVID-19 Vaccine ( season) 2024 06/10/2024, 02/07/2024, 07/11/2023, Additional history exists Albumin/Creatinine Ratio 11/27/2024 11/27/2023, 10/07 CKD PHOS USE SMARTSET 96078 11/27/2024 02/2 10/2023, 10/24/2022, 04/23/2021 Adult Wellness Visit 02/05/2025 02/06/2024, 12/14/19 23 GFR 05/11/2025 11/11/2024, 05/2025, 09/16/2024, Additional history exists Depression Screening 07/07/2025 07/07/2024, 02/06/20 24 CKD HGB USE SMARTSET 81523 11/11/202511/11, 11/11/2024, 10/14/2024, Additional history exists DTap/Tdap [...] this encounter Medical Devices Implanted Type Area Blood And Plasma Laboratory Assistant Device Identifier Shelf Expiration Date Model / Serial / Lot Intraocular Lens Implanted:Qty: 1 on 01/12/2016 by Amari Loomis MD at OR [facility] Right: Eye 11/06/2018 MX60+11.0 / [id number] / [id number] documented as of this encounter Visit Diagnoses [...] and were consensually agreed upon. Care Teams Dermatology Sales Representative Relationship Specialty Start Date End Date Linda Baeza DO [address] [facility] [place] [address] PCP - General Family Medicine 09/11/22 documented as of this encounter
--- OUTSIDE RECORDS SUMMARY | 2024-12-05 15:17 | External Medical Summary ---
Author Name Unknown Address Unknown Organization K01:[facility] [place] [address] [facility] [address] Laboratory Report Ordering Provider Test Date Status KASSIDY RADFORD 11/11/2024 10:33:33 Final Observation Date Value Abnormality Reference (Units ) Status BUN 11/11/2024 10:33:33 30 Above high normal 6-20 (mg/dL) Final Creatinine 11/11/2024 10:33:33 1.1 0.6-1.2 (mg/dL) Final Glomerular filtration rate/1.73 sq M.predicted [Volume Rate/Area] in Serum, Plasma or Blood by Creatinine-based formula (CKD-EPI) 11/11/2024 10:33:33 65 >=60 (mL/min) Final eGFR is calculated based on the CKD-EPI 2020 equation. Sodium 11/11/2024 10:33:33 141 135-146 (m mol/L) Final Potassium 11/11/2024 10:33:33 4.4 3.5-5.1 (m mol/L) Final Cl 11/11/2024 10:33:33 106 98-107 (mm ol/L) Final CO2 11/11/2024 10:33:33 27 22-32 (mmo l/L) Final Anion gap 11/11/2024 10:33:33 8 7-15 (mmol /L) Final Glucose 11/11/2024 10:33:33 79 70-120 (mg /dL) Final Albumin 11/11/2024 10:33:33 4.2 3.8-5.0 (g /dL) Final AST (Aspartate aminotransferase) 11/11/2024 10:33:33 22 10-50 (U/L) Final Alk Phos 11/11/2024 10:33:33 76 35-130 (U/ L) Final Bilirubin, Total 11/11/2024 10:33:33 0.3 <=1 .2 (mg/dL) Final Calcium 11/11/2024 10:33:33 10.2 8.4-10.2 ( mg/dL) Final Protein 11/11/2024 10:33:33 6.0 6.0-8.3 (g /dL) Final ALT (Alanine aminotransferase) 11/11/2024 10:33:33 17 10-50 (U/L) Final Performing Location [facility] [address]. [facility] [address]
--- OUTSIDE RECORDS SUMMARY | 2024-12-05 15:17 | External Medical Summary | Summary of Care ---
Author Name Unknown Organization [facility] Address [address] [place] [address] Phone [phone] Care Team Providers Care Timber Supervisor Name Role Phone Linda Baeza DO Primary Care Provider +1- [phone] Reason for Visit * Reason Comments Outpatient Testing Encounter Details Date Type Department Care Team (Late st Contact Info) Description 11/11/2024 10:10 AM EST Laboratory Laboratory [facility] [place] [address] [place] [address] [facility] [address] [place] [address] CLL (chronic lymphocytic leukemia) ([facility]) Allergies Active Allergy Reactions Criticality Noted Date Comments Meperidine Hcl 02/19/2019 Lamotrigine Other (Please comment) Medium 07/19/2021 Causes patient to fall. Rofecoxib 11/06/2004 rash &swelling in legs, stumbling (vioxx) documented as of this encounter (statuses as of 11/11/2024) Medications NATURAL SUPPLEMENTIndica tions:Per Pt: to prevent arthritis Take by mouth. Vinegar/Honey Daily 0 0 07/12/20 05 Active Probiotic Product (PROBIOTIC ACIDOPHILUS BIOBEADS) Capsule Take 1 Capsule by mouth in the morning. Active Multiple Vitamins-Mineral s (MULTIVITAMIN MEN 50+) TABS Take by mouth 1 Tablet daily . Active Kes[place]a 3 1000 MG Oral Capsule Take by mouth daily . Active Saline 0.65 % Nasal Solution Administer 1 [place] into nostril as needed for Congestion. Active [...] Each 2 07/13/2024 9:32 AM EDT 04/08/20 Active Fluticasone Propionate 50 MCG/ACT Nasal SuspensionIndica [...] by mouth in the morning. 90 Tablet 08/10/20 24 Active documented as of this encounter (statuses as of 11/11/2024) Active Problems Problem Noted Date Diagnosed Date [...] as of this encounter (statuses as of 11/11/2024) Resolved Problems Problem Noted Date Diagnosed Date [...] as of this encounter (statuses as of 11/11/2024) Immunizations Name Administration Dates Next Due COVID-19 mRNA, LNP-s, No Pre serve, 2-Dose Series (Fromlab) 06/07/2021,12/14/2020,11/23/2020 COVID-19, LNP-s, No Preserve , William-sucrose, [...] No 07/07/2024 Does the household have a [facility] source of income? (Household - for ages [...] Assessment Author No 09/08/2014 2:00 PM EST iRna Cooper TECH * Are you blind or [...] Rina Sorto TECH documented in this encounter Plan of Treatment Upcoming Encounters Date Type Department Care Team (Late st Contact Info) Description 11/12/2024 9:00 AM EST Pharmacy Pharmacy Hematology Oncology [facility] [address] [place] [address] [facility] [place], [facility] Hem/Onc [address] [place] [address] 11/12/2024 11:15 AM EST Hem/Onc Treatment Hematology/Oncology Treatment [place] [address] [facility] [address] [address] [place] [phone] Gemma, Chair 4 Hem Onc [address] [place] [address] 01/07/2025 11:30 AM EDT Office Visit Hematology/Oncology [facility] [place] [address] [place] [phone] Carlos Pierre MD [address] [facility] [place] [address] 02/11/2025 10:00 AM EDT Nurse Only Ancillary [address] [place] [address] [place], Nurse Annual Wellness [address] [place] [address] 03/29/2025 10:30 AM EDT Office Visit Urology Ghada Fraser [address] [place] [address] Paul Ha Jr., MD [address] [place] [id number] 04/01/2025 11:00 AM EDT Office Visit Family Practice [address] [place] [address] Linda Baeza DO [address] [place] [address] Pending Results Name Type Priority Associated Diagnoses Date /Time IMMUNOGLOBULIN QUANTITATIVE Lab STAT CLL (chronic lymphocytic leukemia) ([facility]) 11/11/2024 10:33 AM EST CBC WITH WBC DIFFERENTIAL Lab STAT CLL (chronic lymphocytic leukemia) ([facility]) 11/11/2024 10:33 AM EST COMPREHENSIVE METABOLIC PANEL Lab STAT CLL (chronic lymphocytic leukemia) ([facility]) 11/11/2024 10:33 AM EST CBC Lab STAT CLL (chronic lymphocytic leukemia) ([facility]) 11/11/2024 10:33 AM EST DIFFERENTIAL, AUTOMATED Lab STAT CLL (chronic lymphocytic leukemia) ([facility]) 11/11/2024 10:33 AM EST Health Maintenance Due Date Last Done Comments COVID-19 Vaccine ( season) 2024 06/10/2024, 02/07/2024, 07/11/2023, Additional history exists Albumin/Creatinine Ratio 11/27/2024 11/27/2023, 10/07 CKD PHOS USE SMARTSET 78617 11/27/2024 02/10/2023, 10/24/2022, 04/23/2021 Adult Wellness Visit 02/05/2025 02/06/2024, 12/14/19 23 GFR 04/13/2025 10/14/2024, 09/06, 08/19/2024, Additional history exists Depression Screening 07/07/2025 07/07/2024, 02/06/20 24 CKD HGB USE SMARTSET 22560 10/14/202510/14, 10/14/2024, 09/16/2024, Additional history exists DTap/Tdap Vaccines (4 - [...] this encounter Medical Devices Implanted Type Area Trackless Trolley Driver Device Identifier Shelf Expiration Date Model / Serial / Lot Intraocular Lens Implanted:Qty: 1 on 01/12/2016 by Amari Loomis MD at [facility] Right: Eye 11/06/2018 MX60+11.0 / [id number] / [id number] documented as of this encounter Visit Diagnoses Diagnosis CLL (chronic lymphocytic leukemia) (HCC) Chronic lymphoid leukemia, without mention of having achieved remission documented in this encounter Advance Directives * Full Code (Latest Code Status on File) Date Activated Date Inactivated Comments 01/12/2016 9:49 AM 01/12/2016 3:56 PM This order ref lects the patients wishes and were consensually agreed upon. Care Teams Timber Supervisor Relationship Specialty Start Date End Date Linda Baeza DO [address] [facility] [place] [address] PCP - General Family Medicine 09/11/22 documented as of this encounter
--- OUTSIDE RECORDS SUMMARY | 2024-12-05 15:17 | External Medical Summary | Summary of Care ---
Author Name Unknown Organization [facility] Address [address] [place] [address] Phone [phone] Care Team Providers Care Interior Designer Name Role Phone Linda Baeza DO Primary Care Provider +1- [phone] Encounter Details Date Type Department Care Team (Late st Contact Info) Description 10/26/2024 Population Health External Data Unspecified Department Allergies Active Allergy Reactions Criticality Noted Date Comments Meperidine Hcl 02/19/2019 Lamotrigine Other (Please comment) Medium 07/19/2021 Causes patient to fall. Rofecoxib 11/06/2004 rash &swelling in legs, stumbling (vioxx) documented as of this encounter (statuses as of 10/26/2024) Medications NATURAL SUPPLEMENTIndica tions:Per Pt: to prevent arthritis Take by mouth. Vinegar/Honey Daily 0 0 07/12/20 05 Active Probiotic Product (PROBIOTIC ACIDOPHILUS BIOBEADS) Capsule Take 1 Capsule by mouth in the morning. Active Multiple Vitamins-Mineral s (MULTIVITAMIN MEN 50+) TABS Take by mouth 1 Tablet daily . Active [place] 3 1000 MG Oral Capsule Take by mouth daily . Active Saline 0.65 % Nasal Solution Administer 1 [place] into nostril as needed for Congestion. Active [...] as of this encounter (statuses as of 10/26/2024) Active Problems Problem Noted Date Diagnosed Date [...] as of this encounter (statuses as of 10/26/2024) Resolved Problems Problem Noted Date Diagnosed Date [...] as of this encounter (statuses as of 10/26/2024) Immunizations Name Administration Dates Next Due COVID-19 mRNA, LNP-s, No Pre serve, 2-Dose Series (Bloxr) 06/07/2021,12/14/2020,11/23/2020 COVID-19, LNP-s, No Preserve , William-sucrose, [...] ages 0-17 years) Not on file 07/07/2024 Sex and Gender Information Value Date [...] Rina Cooper TECH documented in this encounter Plan of Treatment Upcoming Encounters Date Type Department Care Team (Late st Contact Info) Description 11/11/2024 10:10 AM EST Laboratory Laboratory [place] Patel [address] [place] [phone] [place], Lab [place] [address] [place] [address] 11/12/2024 9:00 AM EST Pharmacy Pharmacy Hematology Oncology [facility] [address] [place] [address] [facility] [place] Hem/Onc [facility] [place] [address] 11/12/2024 10:00 AM EST Hem/Onc Treatment Hematology/Oncology Treatment, [place] [address] [place] [address] Gemma, Chair 10 Hem Onc [address] [address] 01/07/2025 11:30 AM EDT Office Visit Hematology/Oncology [facility] [place] [address] [facility] [place] [address] Carlos Pierre MD [address] [place] [address] 02/11/2025 10:00 AM EDT Nurse Only Ancillary [place] Patel [address] [place] [address] Ana, Nurse Annual Wellness Cold [address] [place] [address] 03/29/2025 10:30 AM EDT Office Visit Urology Ghada Fraser [address] [place] [address] Paul Ha Jr., MD [address] [place] [address] 04/01/2025 11:00 AM EDT Office Visit [facility] [place], [place] [address] [place] [address] Linda Baeza DO [address] [place] [address] Health Maintenance Due Date Last Done Comments COVID-19 Vaccine ( season) 2024 06/10/2024, 02/07/2024, 07/11/2023, Additional history exists Albumin/Creatinine Ratio 11/27/2024 11/27/2023, 10/07 CKD PHOS USE SMARTSET 50331 11/27/2024 02/10/2023, 10/24/2022, 04/23/2021 Adult Wellness Visit 02/05/2025 02/06/2024, 12/14/19 23 GFR 04/13/2025 10/14/2024, 09/06, 08/19/2024, Additional history exists Depression Screening 07/07/2025 07/07/2024, 02/06/20 24 CKD HGB USE SMARTSET 87268 10/14/202510/14, 10/14/2024, 09/16/2024, Additional history exists DTap/Tdap [...] this encounter Medical Devices Implanted Type Area Teachers Assistant Device Identifier Shelf Expiration Date Model / Serial / Lot Intraocular Lens Implanted:Qty: 1 on 01/12/2016 by Amari Loomis MD at OR [facility] Right: Eye 11/06/2018 MX60+11.0 / [id number] / [id number] documented as of this encounter Advance Directives * Full Code (Latest Code Status on File) Date Activated Date Inactivated Comments 01/12/2016 9:49 AM 01/12/2016 3:56 PM This order ref lects the patients wishes and were consensually agreed upon. Care Teams Interior Designer Relationship Specialty Start Date End Date Linda Baeza DO [address] [facility] [place] [address] PCP - General Family Medicine 09/11/22 documented as of this encounter
--- OUTSIDE RECORDS SUMMARY | 2024-12-05 15:17 | External Medical Summary | Summary of Care ---
Author Name Unknown Organization [facility] Address [address] [place] [address] Phone [phone] Care Team Providers Care Clerical Assigner Name Role Phone Linda Baeza DO Primary Care Provider +1- [phone] Reason for Visit * Reason Comments IV Therapy IVIG * Episode Based Medications (Routine) - Authorized Specialty Diagnoses / Procedures Referred By Soham joel Referred To Contact Diagnoses CLL (chronic lymphocytic leukemia) (HCC) Hypogammaglobulinemia (HCC) Procedures AR INJ IVIG PRIVIGEN 500 MG Carlos Pierre MD [address] [place] [address] Phone: tel: fax: Hematology/Oncology Treatment, [place] DEPT CLOSED - 08/20/23 [address] [place] [address] Phone: tel: fax: Referral ID Status Reason Start Date Expiration Date V isits Requested Visits Authorized [id number] Authorized 05/14/2023 04/21/2025 [id number] Encounter Details Date Type Department Care Team (Latest Contact Info) Description 09/18/2024 10:00 AM EST Hem/Onc Treatment Hematology/Oncology Treatment, [place] [address] [place] [address] CLL (chronic lymphocytic leukemia) (HCC)*; Hypogammaglobulinem ia (HCC) Allergies Active Allergy Reactions Criticality Noted Date Comments Meperidine Hcl 02/19/2019 Lamotrigine Other (Please comment) Medium 07/19/2021 Causes patient to fall. Rofecoxib 11/06/2004 rash &swelling in legs, stumbling (vioxx) documented as of this encounter (statuses as of 10/16/2024) Medications NATURAL SUPPLEMENTIndica tions:Per Pt: to prevent arthritis Take by mouth. Vinegar/Honey Daily 0 0 07/12/20 05 Active Probiotic Product (PROBIOTIC ACIDOPHILUS BIOBEADS) Capsule Take 1 Capsule by mouth in the morning. Active Multiple Vitamins-Mineral s (MULTIVITAMIN MEN 50+) TABS Take by mouth 1 Tablet daily . Active E[place] 3 1000 MG Oral Capsule Take by mouth daily . Active Saline 0.65 % Nasal Solution Administer 1 [place] into nostril as needed for Congestion. Active [...] as of this encounter (statuses as of 10/16/2024) Active Problems Problem Noted Date Diagnosed Date [...] as of this encounter (statuses as of 10/16/2024) Resolved Problems Problem Noted Date Diagnosed Date [...] as of this encounter (statuses as of 10/16/2024) Immunizations Name Administration Dates Next Due COVID-19 mRNA, LNP-s, No Pre serve, 2-Dose Series ([employer]) 06/07/2021,12/14/2020,11/23/2020 COVID-19, LNP-s, No Preserve , William-sucrose, Ages 12+ ([employer]) 02/08/2022 COVID-19, MRNA-LNP, 24-25, P F, 50 MCG/0.5ML, IM, 12 YRS & ABOVE (Modern - Spikevax) 06/10/2024,02/07/2024 COVID-19, MRNA-LNP, 24-25, P [...] Sign Reading Time Taken Comments Blood Pressure 144/68 09/18/2024 10:08 AM EST Pulse 57 09/18/2024 10:08 AM EST Temperature 36.6 C (97.8 F) 09/18/2024 10:[address] Respiratory Rate 16 09/18/2024 10:08 AM EST Oxygen Saturation 96% 09/18/2024 10:08 AM EST Inhaled Oxygen Concentration - - Weight 70.3 kg (155 lb) 09/18/2024 10:08 AM EST Height - - Body Mass Index 22.24 08/26/2024 2:11 PM EST documented in this [...] Author No 09/08/2014 2:00 PM EST Rina oCoper TECH * Do you have difficulty dressing [...] documented in this encounter Nursing Notes * Ara Winkler, RN - 09/18/2024 11:42 AM EST Chair 7, IVIG. Pt has no new concerns/symptoms to report since previous treatment. Labs WNL for treatment. PIV established; NSS Infusing. Safety and Risk for Injury Patient will remain free from injury. Ensure appropriate safety devices are available. Provide and maintain safe environment. Patient instructed on use of heat and massage functions where applicable. Patient shown how to operate the heat function of the chair and to alert nursing staff if the chair feels too warm. Patient instructed on the risk of potential yanez while using the heat function. documented in this encounter Plan of Treatment Upcoming Encounters Date Type Department Care Team (Late st Contact Info) Description 11/11/2024 10:10 AM EST Laboratory Laboratory [address] [place] [phone] [place] [address] 11/12/2024 9:00 AM EST Pharmacy Pharmacy Hematology Oncology [facility] [address] [place] [address] [facility] Hem[facility]Onc [address] [place] [address] 11/12/2024 10:00 AM EST Hem/Onc Treatment Hematology/Oncology Treatment, [place] [address] [place] [id number] Gem[place], Chair 10 Hem Onc [facility] [address] [facility] [place] [address] 01/07/2025 11:30 AM EDT Office Visit Hematology/Oncology [facility] [place] [address] [facility] [place] [address] Carlos Pierre MD [address] [facility] [place] [address] 02/11/2025 10:00 AM EDT Nurse Only Ancillary [address] [place] [address] [place], Nurse Annual Wellness [place] [address] [place] [address] 03/29/2025 10:30 AM EDT Office Visit Urology Ghada Fraser [address] [place] [address] Paul Ha Jr., MD [address] [place] [phone] 04/01/2025 11:00 AM EDT Office Visit Family Practice [address], [place] [address] [place] [address] Linda Baeza DO [address] [place] [address] Health Maintenance Due Date Last Done Comments COVID-19 Vaccine ( season) 2024 06/10/2024, 02/07/2024, 07/11/2023, Additional history exists Albumin/Creatinine Ratio 11/27/2024 11/27/2023, 10/07 CKD PHOS USE SMARTSET 16876 11/27/202411/08, 10/24/2022, 04/23/2021 Adult Wellness Visit 02/05/2025 02/06/2024, 12/14/19 23 GFR 04/13/2025 10/14/2024, 09/06, 08/19/2024, Additional history exists Depression Screening 07/07/2025 07/07/2024, 02/06/20 24 CKD HGB USE SMARTSET 19968 10/14/202510/14, 10/14/2024, 09/16/2024, Additional history exists DTap/Tdap [...] this encounter Medical Devices Implanted Type Area Electrical Engineer Mep Device Identifier Shelf Expiration Date Model / Serial / Lot Intraocular Lens Implanted:Qty: 1 on 01/12/2016 by Amari Loomis MD at OR [facility] Right: Eye 11/06/2018 MX60+11.0 / [id number] / [id number] documented as of this encounter Visit Diagnoses [...] previous infusion reaction with IVIG, Starting on Sat09/18/24 at 1130, Until Sat09/18/24 at 1859, Maximum of 4 grams (4000 mg) per day.Indications:CLL (chronic lymphocytic leukemia) (HCC),Hypogammaglobulinemia (HCC) Given 09/18/2024 10:34 AM EST 650 mg diphenhydrAMINE (Benadryl) cap 25 mg 25 mg, Oral, ONCE PRN If previous infusion reaction with IVIG, Starting on Sat09/18/24 at 1130, Until Sat09/18/24 at 1859Indications:CLL (chronic lymphocytic leukemia) (HCC),Hypogammaglobulinemia (HCC) Given 09/18/2024 10:34 AM EST 25 mg Immune Globulin Human- IVIG 10% (Privigen) IV 20 g 20 g, IV Piggyback, ONCE, 1 dose, On Sat09/18/24 at 1300, PRIVIGEN infusion instructions Infusion Rate [...] (chronic lymphocytic leukemia) (HCC),Hypogammaglobulinemia (HCC) Start Infusion 09/18/2024 11:57 AM EST 20 g 350 mL/hr Immune Globulin Human-IVIG 10% (Privigen) IV 10 g 10 g, IV Piggyback, ONCE, 1 dose, On Sat09/18/24 at 1200, PRIVIGEN infusion instructions Infusion Rate VTBI 0.005 [...] (chronic lymphocytic leukemia) (HCC),Hypogammaglobulinemia (HCC) Rate Change 09/18/2024 11:43 AM EST 175 mL/hr Rate Change 09/18/2024 11:28 AM EST 88 mL/hr Rate Change 09/18/2024 11:10 AM EST 44 mL/hr NSS infusion 500 mL, Intravenous, at 100 mL/hr Administer over 10 Hours, CONTINUOUS, Starting on Sat09/18/24 at 1130, Until Sat09/18/24 at 1859Indications:CLL (chronic lymphocytic leukemia) (HCC),Hypogammaglobulinemia (HCC) Start Infusion 09/18/2024 10:22 AM EST 500 mL 100 mL/hr documented in this encounter Advance Directives * Full Code (Latest Code Status on File) Date Activated Date Inactivated Comments 01/12/2016 9:49 AM 01/12/2016 3:56 PM This order ref lects the patients wishes and were consensually agreed upon. Care Teams Clerical Assigner Relationship Specialty Start Date End Date Linda Baeza DO [address] [facility] [place] [address] PCP - General Family Medicine 09/11/22 documented as of this encounter
--- OUTSIDE RECORDS SUMMARY | 2024-12-05 15:17 | External Medical Summary ---
Author Name Unknown Address Unknown Organization K01:[facility] - [address] [facility] [place] [address] Laboratory Report Ordering Provider Test Date Status KASSIDY RADFORD 11/11/2024 10:33:33 Final Observation Date Value Abnormality Reference (Units ) Status SYNC LEUKOCYTES IN BLOOD BY AUTOMATED COUNT 11/11/2024 10:33:33 20.94 Above high normal 4.00-10.80 (K/uL) Final Neutrophils/100 leukocytes in Blood by Manual count 11/11/2024 10:33:33 14.0 Below low normal 40.0-75.0 (%) Final Lymphocytes/100 leukocytes in Blood by Manual count 11/11/2024 10:33:33 69.0 Above high normal 18.0-42.0 (%) Final Known CLL. Monocytes/100 leukocytes in Blood by Manual count 11/11/2024 10:33:33 17.0 Above high normal 1.0-11.0 (%) Final Neutrophils [#/volume] in Blood by Manual count 11/11/2024 10:33:33 2.93 1.80-7.70 (K/uL) Laura l Lymphocytes [#/volume] in Blood by Manual count 11/11/2024 10:33:33 14.45 Above high normal 1.00-4.80 (K/uL) Final Monocytes [#/volume] in Blood by Manual count 11/11/2024 10:33:33 3.56 Above high normal 0.00-1.10 (K/uL) Final Performing Location [facility] - [address] [facility] [place] [address]
--- OUTSIDE RECORDS SUMMARY | 2024-12-05 15:17 | External Medical Summary | Summary of Care ---
Author Name Unknown Organization [facility] Address [address] [place] [address] Phone [phone] Care Team Providers Care Group Home Counselor Name Role Phone Linda Baeza Primary Care Provider +1- [phone] Reason for Visit * Reason Onset Date Comments Med Request 11/11/2024 Encounter Details Date Type Department Care Team (Late Contact Info) Description 11/11/2024 Telephone Urology Ghada Fraser [address] [place] [address] Paul Ha Jr., MD [address] [place] [address] Med Request Allergies Active Allergy Reactions Criticality Noted Date Comments Meperidine Hcl 02/19/2019 Lamotrigine Other (Please comment) Medium 07/19/2021 Causes patient to fall. Rofecoxib 11/06/2004 rash &swelling in legs, stumbling (vioxx) documented as of this encounter (statuses as of 11/12/2024) Medications NATURAL SUPPLEMENTIndica tions:Per Pt: to prevent arthritis Take by mouth. Vinegar/Honey Daily 0 0 07/12/20 05 Active Probiotic Product (PROBIOTIC ACIDOPHILUS BIOBEADS) Capsule Take 1 Capsule by mouth in the morning. Active Multiple Vitamins-Mineral s (MULTIVITAMIN MEN 50+) TABS Take by mouth 1 Tablet daily . Active [place] 3 1000 MG Oral Capsule Take by mouth daily . Active Saline 0.65 % Nasal Solution Administer 1 [place] into nostril as needed for Congestion. Active [...] as of this encounter (statuses as of 11/12/2024) Active Problems Problem Noted Date Diagnosed Date [...] as of this encounter (statuses as of 11/12/2024) Resolved Problems Problem Noted Date Diagnosed Date [...] as of this encounter (statuses as of 11/12/2024) Immunizations Name Administration Dates Next Due COVID-19 mRNA, LNP-s, No Pre serve, 2-Dose Series ([employer]) 06/07/2021,12/14/2020,11/23/2020 COVID-19, LNP-s, No Preserve , William-sucrose, [...] No 07/07/2024 Does the household have a [facility] source of income? (Household - for ages [...] Rina Cooper TECH documented in this encounter Miscellaneous Notes * Telephone Encounter - Allie Mcfadden LPN - 11/11/2024 4:06 PM EST Duplicate request. * Telephone Encounter - Saundra De La Garza MED ASSIST - 11/11/2024 3:49 PM EST Med request for finasteride for a 90 day supply please send to Ladarius Schneider documented in this encounter Plan of Treatment Upcoming Encounters Date Type Department Care Team (Late st Contact Info) Description 11/12/2024 9:00 AM EST Pharmacy Pharmacy Hematology Oncology [place] [address] [place] [address] [facility], [facility] Hem/[place] [address] 11/12/2024 11:15 AM EST Hem/Onc Treatment Hematology/Oncology Treatment, [place] [address] [place] [address] [place], Chair 4 Hem Onc [facility] [address] [facility] [place], [place] [address] 01/07/2025 11:30 AM EDT Office Visit Hematology/Oncology [facility] [place] [address] [place], [place] [address] Carlos Pierre MD [address] [facility] [place], [place] [address] 02/11/2025 10:00 AM EDT Nurse Only Ancillary [place] [address] [place] [address] [place], Nurse Annual Wellness Cold [address] [place] [address] 03/29/2025 10:30 AM EDT Office Visit Urology Ghada Fraser [address] [place] [address] Paul Ha Jr., MD [address] [place] [phone] 04/01/2025 11:00 AM EDT Office Visit Family Practice [address], [place] [address] [place] [address] Linda Baeza DO [address] [place] [address] Health Maintenance Due Date Last Done Comments COVID-19 Vaccine ( season) 2024 06/10/2024, 02/07/2024, 07/11/2023, Additional history exists Albumin/Creatinine Ratio 11/27/2024 11/27/2023, 10/07 CKD PHOS USE SMARTSET 35293 11/27/2024 02/10/2023, 10/24/2022, 04/23/2021 Adult Wellness Visit 02/05/2025 02/06/2024, 12/14/19 23 GFR 04/13/2025 10/14/2024, 09/06, 08/19/2024, Additional history exists Depression Screening 07/07/2025 07/07/2024, 02/06/20 24 CKD HGB USE SMARTSET 30022 11/11/202511/11, 10/14/2024, 10/14/2024, Additional history exists DTap/Tdap Vaccines (4 [...] this encounter Medical Devices Implanted Type Area Chemical Operations And Training Device Identifier Shelf Expiration Date Model / Serial / Lot Intraocular Lens Implanted:Qty: 1 on 01/12/2016 by Amari Loomis MD at OR [facility] Right: Eye 11/06/2018 MX60+11.0 / [id number] / [id number] documented as of this encounter Advance Directives * Full Code (Latest Code Status on File) Date Activated Date Inactivated Comments 01/12/2016 9:49 AM 01/12/2016 3:56 PM This order ref lects the patients wishes and were consensually agreed upon. Care Teams Group Home Counselor Relationship Specialty Start Date End Date Linda Baeza DO [address] [facility] [place] [address] PCP - General Family Medicine 09/11/22 documented as of this encounter
--- OUTSIDE RECORDS SUMMARY | 2024-12-05 15:17 | External Medical Summary | Summary of Care ---
Author Name Unknown Organization [facility] Address [address] [place] [address] Phone [phone] Care Team Providers Care Spa Host Name Role Phone Linda Baeza DO Primary Care Provider +1- [phone] Reason for Visit * Reason Comments Infusion C48 D1 IVIG * Episode Based Medications (Routine) - Authorized Specialty Diagnoses / Procedures Referred By Contpauly t Referred To Contact Diagnoses CLL (chronic lymphocytic leukemia) (HCC) Hypogammaglobulinemia (HCC) Procedures CO INJ IVIG PRIVIGEN 500 MG Carlos Pierre MD [address] [place] [address] Phone: tel: fax: Hematology/Oncology Treatment, [place] DEPT CLOSED - 08/20/23 [address] [facility] [place] [address] Phone: tel: fax: Referral ID Status Reason Start Date Expiration Date V isits Requested Visits Authorized [id number] Authorized 05/14/2023 04/21/[phone] Encounter Details Date Type Department Care Team (Latest Contact Info) Description 11/12/2024 11:15 AM EST Hem/Onc Treatment Hematology/Oncology Treatment, [place] [address] [place] [address] [place], Chair 4 Hem Onc [address] [facility] [place] [address] CLL (chronic lymphocytic leukemia) (HCC)*; Hypogammaglobulinem ia ([facility]) Allergies Active Allergy Reactions Criticality Noted [...] by mouth 1 Tablet daily . Active Cisco 3 1000 MG Oral Capsule Take by mouth daily . Active Saline 0.65 % Nasal Solution Administer 1 [place] into nostril as needed for Congestion. Active [...] Tablet (Acalabrutinib Maleate)Indicati ons:CLL (chronic lymphocytic leukemia) ([facility]) Take 100 mg by mouth in [...] mRNA, LNP-s, No Pre serve, 2-Dose Series ([facility]) 06/07/2021,12/14/2020,11/23/2020 COVID-19, LNP-s, No Preserve , William-sucrose, Ages 12+ ([facility]) 02/08/2022 COVID-19, MRNA-LNP, 24-25, P F, 50 [...] Description 12/09/2024 10:20 AM EST [facility] [address] [facility] [place] [address] [place], Lab [facility] [address] [facility] [place] [address] 12/10/2024 9:00 AM EST Pharmacy Pharmacy Hematology Oncology [place] [address] [place] [address] [facility] Hem/Onc [address] [place] [address] 12/10/2024 11:30 AM EST Hem/Onc Treatment Hematology/Oncology Treatment, [place] [address] [place] [address] [place], Chair 1 Hem Onc [address] [facility] [place] [address] 01/07/2025 11:30 AM EDT Office Visit Hematology/Oncology [facility] [place] [address] [facility] [place] [address] Carlos Pierre MD [address] [place] [address] 02/11/2025 10:00 AM EDT Nurse Only [address]illary [place] [address] [address] [place] [address] [place], Nurse Annual Wellness Cold [address] [place] [address] 03/29/2025 10:30 AM EDT Office Visit Urology Ghada Fraser [address] [place] [address] Paul Ha Jr., MD [address] [place] [phone] 04/01/2025 11:00 AM EDT Office Visit Family Practice [place] [address] [address] [place], [place] [address] Linda Baeza, [address] [place] [address] Health Maintenance Due Date Last Done Comments COVID-19 Vaccine ( season) 2024 06/10/2024, 02/07/2024, 07/11/2023, Additional history exists Albumin/Creatinine Ratio 11/27/2024 11/27/2023, 10/07 CKD PHOS USE SMARTSET 87445 11/27/2024 02/10/2023, 10/24/2022, 04/23/2021 Adult Wellness Visit 02/05/2025 02/06/2024, 12/14/19 23 GFR 05/11/2025 11/11/2024, 05/2025, 09/16/2024, Additional history exists Depression Screening 07/07/2025 07/07/2024, 02/06/20 24 CKD HGB USE SMARTSET 77758 11/11/202511/11, 11/11/2024, 10/14/2024, Additional history exists DTap/Tdap [...] this encounter Medical Devices Implanted Type Area Perfumer Device Identifier Shelf Expiration Date Model / Serial / Lot Intraocular Lens Implanted:Qty: 1 on 01/12/2016 by Amari Loomis MD at OR [facility] Right: Eye 11/06/2018 MX60+11.0 / [id number] / [id number] documented as of this encounter Visit Diagnoses [...] and were consensually agreed upon. Care Teams Spa Host Relationship Specialty Start Date End Date Linda Baeza DO [address] [facility] [place] [address] PCP - General Family Medicine 09/11/22 documented as of this encounter
--- OUTSIDE RECORDS SUMMARY | 2024-12-05 15:17 | External Medical Summary ---
Author Name Unknown Address Unknown Organization K01:[facility] - [address] [place] [address] Laboratory Report Ordering Provider Test Date Status KASSIDY RADFORD 11/11/2024 10:33:33 Final Observation Date Value Abnormality Reference (Units ) Status WBC, Total 11/11/2024 10:33:33 20.94 Above high normal 4.00-10.80 (K/uL) Final RBC 11/11/2024 10:33:33 3.95 4.50-5.25 (M/uL) Final Hemoglobin 11/11/2024 10:33:33 12.9 Below low normal 14.0-16.8 (g/dL) Final HCT 11/11/2024 10:33:33 40.4 40.0-48.4 (%) Final MCV 11/11/2024 10:33:33 102.3 82.0-99.5 (fL) Final MCH 11/11/2024 10:33:33 32.7 27.0-34.0 (pg) Final MCHC 11/11/2024 10:33:33 31.9 32.0-36.0 (g/dL) Final RDW 11/11/2024 10:33:33 15.6 11.5-15.5 (%) Final Platelets 11/11/2024 10:33:33 155 140-400 (K/uL) Final MPV 11/11/2024 10:33:33 11.6 6.6-11.1 (fL) Final Nucleated erythrocytes/100 leukocytes [Ratio] in Blood by Automated count 11/11/2024 10:33:33 0 <=0 (/100 WBCs) Final Performing Location LABORATORY [facility] - [address] [place] [address]
--- OUTSIDE RECORDS SUMMARY | 2024-12-05 15:17 | External Medical Summary | Summary of Care ---
Author Name Unknown Organization [facility] Address [address] [place] [address] Phone [phone] Care Team Providers Care Mill Operator Head Name Role Phone Linda Baeza Primary Care Provider +1- [phone] Reason for Visit * Reason Comments eRx-Medication Refill Encounter Details Date Type Department Care Team (Late st Contact Info) Description 11/06/2024 Refill Urology Ghada Fraser [address] [place] [address] Paul Ha Jr., MD [address] [place] [place] [address] Allergies Active Allergy Reactions Criticality Noted Date Comments Meperidine Hcl 02/19/2019 Lamotrigine Other (Please comment) Medium 07/19/2021 Causes patient to fall. Rofecoxib 11/06/2004 rash &swelling in legs, stumbling (vioxx) documented as of this encounter (statuses as of 11/12/2024) Medications NATURAL SUPPLEMENTIndic ations:Per Pt: to prevent arthritis Take by mouth. Vinegar/Honey Daily 0 0 005 Active Probiotic Product (PROBIOTIC ACIDOPHILUS BIOBEADS) Capsule Take 1 Capsule by mouth in the morning. Active Multiple Vitamins-Minera ls (MULTIVITAMIN MEN 50+) TABS Take by mouth 1 Tablet daily . Active [place] 3 1000 MG Oral Capsule Take by mouth daily . Active Saline 0.65 % Nasal Solution Administer 1 [place] into nostril as needed for Congestion. Active [...] 180 Each 2 4 9:32 AM EDT Active Fluticasone Propionate 50 MCG/ACT Nasal SuspensionIndic ations:Asthma, moderate persistent Administer 2 Sprays into nostril in the morning. Each nostril. 16 g 1 Active ICaps AREDS Formula Oral Tablet Take 1 Tablet by mouth in the morning and 1 Tablet before bedtime. Active Calquence 100 MG Oral Tablet (Acalabrutinib Maleate)Indicat ions:CLL (chronic lymphocytic leukemia) ([facility]) Take 100 mg by mouth in the morning and 100 mg before bedtime. 60 Tablet 11 024 Active Finasteride 5 MG Oral Tablet (Proscar) Take 1 Tablet by mouth in the morning. 90 Tablet 3 025 Active Finasteride 5 MG Oral Tablet (Proscar) [...] mRNA, LNP-s, No Pre serve, 2-Dose Series ([employer]) 06/07/2021,12/14/2020,11/23/2020 COVID-19, LNP-s, No Preserve , William-sucrose, [...] of Assessment Author No 09/08/2014 2:00 PM FLORIN Cooper Rina M, TECH * Do you have serious difficulty walking or climbing stairs? (5 years old or older) Answer Date of Assessment Author No 09/08/2014 2:00 PM FLORIN Cooper Rina M, TECH * Do you have difficulty dressing or bathing? (5 years old or older) Answer Date of Assessment Author No 09/08/2014 2:00 PM FLORIN Cooper Rina M, TECH * Because of a physical, mental, [...] encounter Miscellaneous Notes * Telephone Encounter - Danny Cooper PA-C - 11/12/2024 8:32 AM ESTSigned Prescriptions: Disp Refills Finasteride 5 MG Oral Tablet (Proscar) 90 Tab*3 Sig: Take 1 Tablet by mouth in the morning. Authorizing Provider: DANNY COOPER * Telephone Encounter - Viviane Weiss LPN - 11/12/2024 8:16 AM EST Last refilled on 08/10/2024, pending. Please sign if agreeable. * Telephone Encounter - Nataly Eubanks, digital marketer - 11/11/2024 3:31 PM EST Pt's calling to check on status of Finasteride 5 MG Oral Tablet (Proscar) . Please send JAIME as pt is out. Thank you, Nataly Eubanks Support Staff [facility] ([facility]) (formerly Telepharmacy) 11/11/2024,3:31 PM * Telephone Encounter - Allie Mcfadden LPN - 11/09/2024 8:34 AM ESTPending Prescriptions: Disp Refills Finasteride 5 MG Oral Tablet [Pharmacy Med*90 Tab*0 Sig: Take 1 Tablet by mouth in the morning. * Telephone Encounter - Allie Mcfadden LPN - 11/09/2024 8:33 AM EST Automatic refill request from pharmacy for Finasteride. 03/16/2024 03/29/2025 Review of patient's allergies indicates: Allergen Reactions Lamictal [Lamotrigine] Other (Please comment) Causes patient to fall. Demerol [Meperidine Hcl] Rofecoxib rash &swelling in legs, stumbling (vioxx) * Telephone Encounter - Jordin, E-Rx Ss Inbound - 11/08/2024 5:00 PM EST Pending Prescriptions: Disp Refills Finasteride 5 MG Oral Tablet [Pharmacy Med*90 Tab*0 Sig: Take 1Tablet by mouth in the morning. documented in this encounter Plan of Treatment Upcoming Encounters Date Type Department Care Team (Late st Contact Info) Description 11/12/2024 11:15 AM EST Hem/Onc Treatment Hematology/Oncology Treatment, [place] [address] [place] [place] [address] Gemma, Chair 4 Hem Onc [address] [address] 01/07/2025 11:30 AM EDT Office Visit Hematology/Oncology [facility] [place] [address] [place] [address] Carlos Pierre MD [address] [facility] [address] 02/11/2025 10:00 AM EDT Nurse Only Ancillary [place] [address] [place] [address] [place], Nurse Annual Wellness [address] [place] [address] 03/29/2025 10:30 AM EDT Office Visit Urology Ghada Fraser [address] [place] [address] Paul Ha Jr., MD [address] [place] [address] 04/01/2025 11:00 AM EDT Office Visit Family Practice [address], [place] [address] [place] [address] Linda Baeza, [address] [place] [address] Health Maintenance Due Date Last Done Comments COVID-19 Vaccine ( season) 2024 06/10/2024, 02/07/2024, 07/11/2023, Additional history exists Albumin/Creatinine Ratio 11/27/2024 11/27/2023, 10/07 CKD PHOS USE SMARTSET 49681 11/27/2024 02/10/2023, 10/24/2022, 04/23/2021 Adult Wellness Visit 02/05/2025 02/06/2024, 12/14/19 23 GFR 05/11/2025 11/11/2024, 05/2025, 09/16/2024, Additional history exists Depression Screening 07/07/2025 07/07/2024, 02/06/20 24 CKD HGB USE SMARTSET 78816 11/11/202511/11, 11/11/2024, 10/14/2024, Additional history exists DTap/Tdap [...] this encounter Medical Devices Implanted Type Area Headend Technician Device Identifier Shelf Expiration Date Model / Serial / Lot Intraocular Lens Implanted:Qty: 1 on 01/12/2016 by Amari Loomis MD at OR [facility] Right: Eye 11/06/2018 MX60+11.0 / [id number] / [id number] documented as of this encounter Advance Directives * Full Code (Latest Code Status on File) Date Activated Date Inactivated Comments 01/12/2016 9:49 AM 01/12/2016 3:56 PM This order ref lects the patients wishes and were consensually agreed upon. Care Teams Mill Operator Head Relationship Specialty Start Date End Date Linda Baeza DO [address] [facility] [place] [address] PCP - General Family Medicine 09/11/22 documented as of this encounter
--- OUTSIDE RECORDS SUMMARY | 2024-12-05 15:17 | External Medical Summary ---
Author Name Unknown Address Unknown Organization K01:[facility] - [address] [place] [address] Laboratory Report Ordering Provider Test Date Status KASSIDY RADFORD 11/11/2024 10:33:33 Final Observation Date Value Abnormality Reference (Units ) Status IgG 11/11/2024 10:33:33 [id number] ( mg/dL) Final IgA 11/11/2024 10:33:33 50 Below low normal 70- 400 (mg/dL) Final IgM 11/11/2024 10:33:33 <5 Below low normal 40- 230 (mg/dL) Final Performing Location [facility] - [address] [place] [address]
--- OUTSIDE RECORDS SUMMARY | 2024-12-05 15:17 | External Medical Summary | Summary of Care ---
Author Name Unknown Organization [facility] Address [address] [place] [address] Phone [phone] Care Team Providers Care Awning Maker And Installer Name Role Phone Aryan Lindarey Sharma DO Primary Care Provider +1- [phone] Reason for Visit * Reason Onset Date Comments STAIR Lung Nodule 10/16/2024 Encounter Details Date Type Department Care Team (Late st Contact Info) Description 10/16/2024 Telephone STAIR LUNG NODULE [address] [place] [address] Program, [place] [address] [place] [address] STAIR Lung Nodule Allergies Active Allergy Reactions Criticality Noted Date [...] by mouth 1 Tablet daily . Active [place] 3 1000 MG Oral Capsule Take by mouth daily . Active Saline 0.65 % Nasal Solution Administer 1 [place] into nostril as needed for Congestion. Active [...] mRNA, LNP-s, No Pre serve, 2-Dose Series (Table8) 06/07/2021,12/14/2020,11/23/2020 COVID-19, LNP-s, No Preserve , William-sucrose, [...] encounter Miscellaneous Notes * Telephone Encounter - Laura Pineda LPN - 10/16/2024 12:32 PM EST Patient managed in STAIR Program for Pulmonary Nodule - added Tracking Dr. Valenzuela Care Plan documented in this encounter Plan of Treatment Upcoming Encounters Date Type Department Care Team (Late st Contact Info) Description 11/11/2024 10:10 AM EST [facility] [address] [place] [address] [place] Lab [address] [place] [address] 11/12/2024 9:00 AM EST Pharmacy Pharmacy Hematology Oncology [place] [address] [place] [address] [facility] Hem/Onc [facility] [place] [address] 11/12/2024 10:00 AM EST Hem/Onc Treatment Hematology/Oncology Treatment, [place] [address] [place] [address] Gemma, Chair 10 Hem Onc [address] [place] [address] 01/07/2025 11:30 AM EDT Office Visit Hematology/Oncology [facility] [place] [place] [id number] Carlos Pierre MD [address] [facility] [address] 02/11/2025 10:00 AM EDT Nurse Only Ancillary [address] [place] [address] [place], Nurse Annual Wellness Cold [address] [place] [address] 03/29/2025 10:30 AM EDT Office Visit Urology Ghada Fraser [address] [place] [address] Paul Ha Jr., MD [address] [place] [address] 04/01/2025 11:00 AM EDT Office Visit [facility] [place] [facility] [address] [place] [address] Linda Baeza, [address] [place] [address] Health Maintenance Due Date Last Done Comments COVID-19 Vaccine ( season) 2024 06/10/2024, 02/07/2024, 07/11/2023, Additional history exists Albumin/Creatinine Ratio 11/27/2024 11/27/2023, 10/07 CKD PHOS USE SMARTSET 80371 11/27/2024 02/10/2023, 10/24/2022, 04/23/2021 Adult Wellness Visit 02/05/2025 02/06/2024, 12/14/19 23 GFR 04/13/2025 10/14/2024, 09/06, 08/19/2024, Additional history exists Depression Screening 07/07/2025 07/07/2024, 02/06/20 24 CKD HGB USE SMARTSET 207[address] 10/14/202510/14, 10/14/2024, 09/16/2024, Additional history exists DTap/Tdap [...] this encounter Medical Devices Implanted Type Area Air Tester Device Identifier Shelf Expiration Date Model / Serial / Lot Intraocular Lens Implanted:Qty: 1 on 01/12/2016 by Amari Loomis MD at OR [facility] Right: Eye 11/06/2018 MX60+11.0 / [id number] / [id number] documented as of this encounter Advance Directives * Full Code (Latest Code Status on File) Date Activated Date Inactivated Comments 01/12/2016 9:49 AM 01/12/2016 3:56 PM This order ref lects the patients wishes and were consensually agreed upon. Care Teams Awning Maker And Installer Relationship Specialty Start Date End Date Linda Baeza DO [address] [facility] [place] [address] PCP - General Family Medicine 09/11/22 documented as of this encounter
--- OUTSIDE RECORDS SUMMARY | 2024-12-05 15:17 | External Medical Summary | Summary of Care ---
Author Name Unknown Organization [facility] Address [address] [place] [address] Phone [phone] Care Team Providers Care Log Cut Off Sawyer Name Role Phone Aryan Lindarey Sharma DO Primary Care Provider +1- [phone] Reason for Visit * Reason Onset Date Comments Precert Approved 07/31/2024 Kait Ricks Encounter Details Date Type Department Care Team (Late st Contact Info) Description 07/31/2024 Telephone Hematology/Oncology [facility] [address] [place] [address] Carlos Pierre MD [address] [place] [address] Precert Approved (Kiat Ricks ) Allergies Active Allergy Reactions Criticality Noted Date Comments Meperidine Hcl 02/19/2019 Lamotrigine Other (Please comment) Medium 07/19/2021 Causes patient to fall. Rofecoxib 11/06/2004 rash &swelling in legs, stumbling (vioxx) documented as of this encounter (statuses as of 10/30/2024) Medications NATURAL SUPPLEMENTIndic ations:Per Pt: to prevent arthritis Take by mouth. Vinegar/Honey Daily 0 0 005 Active Probiotic Product (PROBIOTIC ACIDOPHILUS BIOBEADS) Capsule Take 1 Capsule by mouth in the morning. Active Multiple Vitamins-Minera ls (MULTIVITAMIN MEN 50+) TABS Take by mouth 1 Tablet daily . Active [place] 3 1000 MG Oral Capsule Take by mouth daily . Active Saline 0.65 % Nasal Solution Administer 1 [place] into nostril as needed for Congestion. Active [...] BY MOUTH EVERY DAY 180 Each 2 07/13/20 24 9:32 AM EDT Active Fluticasone Propionate 50 MCG/ACT Nasal SuspensionIndic ations:Asthma, moderate persistent Administer 2 Sprays into nostril in the morning. Each nostril. 16 g 1 Active ICaps AREDS Formula Oral Tablet Take 1 Tablet by mouth in the morning and 1 Tablet before bedtime. Active Finasteride 5 MG Oral Tablet (Proscar) Take 1 Tablet by mouth in the morning. 90 Tablet 3 024 2023 Discontinued Calquence 100 MG Oral Tablet (Acalabrutinib Maleate)Indicat ions:CLL (chronic lymphocytic leukemia) ([facility]) Take 100 mg by mouth in the morning and 100 mg before bedtime. 60 Tablet 11 024 2023 Discontinued(R merrill) Hospital, Clinic, or Other Facility Administered Medication Ordered Dose Route Frequency Start Date End Date Status Albuterol Sulfate (Proventil) (2.5 MG/3ML) 0.083% inhalation solution 2.5 mgIndications:Multifoca l pneumonia,LULI (mycobacterium avium-intracellulare) ([facility]),Bronchiectasis with acute exacerbation ([facility]) 2.5 mg NEBULIZER ONCE PRN 08/21/2023 08/20/2024 Ended documented as of this encounter (statuses as of 10/30/2024) Active Problems Problem Noted Date Diagnosed Date [...] as of this encounter (statuses as of 10/30/2024) Resolved Problems Problem Noted Date Diagnosed Date [...] as of this encounter (statuses as of 10/30/2024) Immunizations Name Administration Dates Next Due COVID-19 mRNA, LNP-s, No Pre serve, 2-Dose Series (emoquo) 06/07/2021,12/14/2020,11/23/2020 COVID-19, LNP-s, No Preserve , William-sucrose, [...] of Assessment Author No 09/08/2014 2:00 PM Anita Sortot Se, TECH * Are you blind or do you have serious difficulty seeing, even when wearing glasses? Answer Date of Assessment Author No 09/08/2014 2:00 PM Anita Sortot Se, TECH * Do you have serious difficulty walking or climbing stairs? (5 years old or older) Answer Date of Assessment Author No 09/08/2014 2:00 PM FLORIN Arnoldnisa Rina Se, TECH * Do you have difficulty dressing or bathing? (5 years old or older) Answer Date of Assessment Author No 09/08/2014 2:00 PM Anita Sortot Se, TECH * Because of a physical, mental, or emotional condition, do you have difficulty doing errands alone such as visiting a doctors office or shopping? (15 years old or older) Answer Date of Assessment Author No 09/08/2014 2:00 PM FLORIN Arnoldnisa Rina M, TECH documented as of this encounter Mental Status * Because of a physical, mental, or emotional condition, do you have serious difficulty concentrating, remembering, or making decisions? (5 years old or older) Answer Entry Date Author No 09/08/2014 2:00 PM FLORIN Cooper Rina M, TECH documented in this encounter Miscellaneous Notes * Telephone Encounter - Chandrika Asencio OSA - 08/04/2024 12:37 PM EDT Tried to run test claim , rejection to submit to primary payer called [facility] [phone] rep advised showing other coverage on file patient will have to call to update COB benefits. Called patient and left message. Chandrika Asencio Medication Composition Molder 08/04/2024.12:38 PM * Telephone Encounter - Chandrika Asencio OSA - 08/03/2024 4:26 PM EDT Please see scanned fax from insurance under the Media Tab. Approved/Denied: approved Drug Name and Formulation: Calquence 100 mg tab How Prescribed(directions/sig):Take 100 mg by mouth in the morning and 100 mg before bedtime Qty and Day Supply: 60/30 Did you receive insurance information from outside the chart? No, received insurance information within the chart Valid auth start date: 08/03/2024 Valid auth end date: 08/03/2025 Rx Insurance Info: [facility] [place] Reference #: [id number] Chandrika Asencio Medication Composition Molder 08/03/2024.4:26 PM * Telephone Encounter - Chandrika Asencio OSA - 08/03/2024 10:12 AM EDT Auth needed to be resubmitted [facility] Authorization Submission Submission Information: Medication: calquence 100 mg tab Portal used: PromptPA Insurance: formerly [facility] Authorization #/Diaz: [id number] Chandrika Asencio Medication Composition Molder 08/03/2024.10:13 AM * Telephone Encounter - Paola Rees OSA - 08/03/2024 6:31 AM EDT P [phone] * Telephone Encounter - Walt Gan wind tunnel technician - 07/31/2024 2:54 PM EDT New or re-auth: new Patient Tano Rocha needs a prior authorization for a medication through their [facility] insurance. Medication: Calquence Formulation: 100mg tablet Dosage: 60 tablets for 30ds ID: [id number] BIN:[id number] PCN:[id number] Target ship date is n/a. Thank you very much, Shilpa Gan Glassblower, [facility] 07/31/2024 2:54 PM documented in this encounter Plan of Treatment Upcoming Encounters Date Type Department Care Team (Late st Contact Info) Description 11/11/2024 10:10 AM EST Laboratory Laboratory [address] [place] [address] [place], [address] [place] [address] 11/12/2024 9:00 AM EST Pharmacy Pharmacy Hematology Oncology [facility] [address] [place] [address] [facility], [facility] Hem/Onc [facility] [place] [address] 11/12/2024 10:00 AM EST Hem/Onc Treatment Hematology/Oncology Treatment, [place] [address] [place] [address] Gemma, Chair [address] Hem [address] [place] [address] 01/07/2025 11:30 AM EDT Office Visit Hematology/Oncology [facility] [address] [place] [address] Carlos Pierre MD [address] [place] [address] 02/11/2025 10:00 AM EDT Nurse Only Ancillary [address], [place] [address] [place] [address] [place], Nurse Annual Wellness Cold [address] [place] [address] 03/29/2025 10:30 AM EDT Office Visit Urology Ghada Fraser [address] [place] [address] Paul Ha Jr., MD [address] [place] [address] 04/01/2025 11:00 AM EDT Office Visit [facility] [address], [place] [address] [place] [address] Linda Baeza DO [address] [place] [address] Health Maintenance Due Date Last Done Comments COVID-19 Vaccine ( season) 2024 06/10/2024, 02/07/2024, 07/11/2023, Additional history exists Albumin/Creatinine Ratio 11/27/2024 11/27/2023, 10/07 CKD PHOS USE SMARTSET 83110 11/27/202411/08, 10/24/2022, 04/23/2021 Adult Wellness Visit 02/05/2025 02/06/2024, 12/14/19 23 GFR 04/13/2025 10/14/2024, 09/06, 08/19/2024, Additional history exists Depression Screening 07/07/2025 07/07/2024, 02/06/20 24 CKD HGB USE SMARTSET 58600 10/14/202510/14, 10/14/2024, 09/16/2024, Additional history exists DTap/Tdap [...] this encounter Medical Devices Implanted Type Area Gallery Or Museum Technician Device Identifier Shelf Expiration Date Model / Serial / Lot Intraocular Lens Implanted:Qty: 1 on 01/12/2016 by Amari Loomis MD at [facility] Right: Eye 11/06/2018 MX60+11.0 / [id number] / [id number] documented as of this encounter Advance Directives * Full Code (Latest Code Status on File) Date Activated Date Inactivated Comments 01/12/2016 9:49 AM 01/12/2016 3:56 PM This order ref lects the patients wishes and were consensually agreed upon. Care Teams Log Cut Off Sawyer Relationship Specialty Start Date End Date Linda Baeza DO [address] [facility] [place] [id number] PCP - General Family Medicine 09/11/22 documented as of this encounter
--- OUTSIDE RECORDS SUMMARY | 2024-12-05 15:17 | External Medical Summary | Summary of Care ---
Author Name Unknown Organization [facility] Address [address] [place] [address] Phone [phone] Care Team Providers Care Log Processor Operator Name Role Phone Linda Baeza DO Primary Care Provider +1- [phone] Reason for Visit * Reason Comments IV Therapy IVIG * Episode Based Medications (Routine) - Authorized Specialty Diagnoses / Procedures Referred By Soham joel Referred To Contact Diagnoses CLL (chronic lymphocytic leukemia) (HCC) Hypogammaglobulinemia (HCC) Procedures CA INJ IVIG PRIVIGEN 500 MG Carlos Pierre MD [address] [place] [address] Phone: tel: fax: Hematology/Oncology Treatment, [place] DEPT CLOSED - 08/20/23 [address] [place] [address] Phone: tel: fax: Referral ID Status Reason Start Date Expiration Date V isits Requested Visits Authorized [id number] Authorized 05/14/2023 04/21/[phone] Encounter Details Date Type Department Care Team (Latest Contact Info) Description 09/18/2024 10:00 AM EST Hem/Onc Treatment Hematology/Oncology Treatment, [place] [address] [place] [address] CLL [...] by mouth 1 Tablet daily . Active [place] 3 1000 MG Oral Capsule Take by mouth daily . Active Saline 0.65 % Nasal Solution Administer 1 [place] into nostril as needed for Congestion. Active [...] mRNA, LNP-s, No Pre serve, 2-Dose Series ([employer]) 06/07/2021,12/14/2020,11/23/2020 COVID-19, LNP-s, No Preserve , William-sucrose, Ages 12+ ([employer]) 02/08/2022 COVID-19, MRNA-LNP, 24-25, P F, 50 [...] AM EST Laboratory Laboratory [address] [place] [phone] [place] [address] 11/12/2024 9:00 AM EST Pharmacy Pharmacy Hematology Oncology [facility] [address] [place] [address] [facility] Hem/Onc [address] [place] [address] 11/12/2024 10:00 AM EST Hem/Onc Treatment Hematology/Oncology Treatment, [place] [address] [place] [phone] Gemma, Chair 10 Hem Onc [facility] [address] [place] [address] 01/07/2025 11:30 AM EDT Office Visit Hematology/Oncology [facility] [place] [address] [facility] [place] [address] Carlos Pierre MD [address] [place] [address] 02/11/2025 10:00 AM EDT Nurse Only Ancillary [address] [place] [address] [place], Nurse Annual Wellness Cold [address] [place] [address] 03/29/2025 10:30 AM EDT Office Visit Urology Ghada Fraser [address] [place] [address] Paul Ha Jr., MD [address] [place] [id number] 04/01/2025 11:00 AM EDT Office Visit Family Practice [address], [place] [address] [place] [address] Linda Baeza DO [address] [place] [address] Health Maintenance Due Date Last Done Comments COVID-19 Vaccine ( season) 2024 06/10/2024, 02/07/2024, 07/11/2023, Additional history exists Albumin/Creatinine Ratio 11/27/2024 11/27/2023, 10/07 CKD PHOS USE SMARTSET 04663 11/27/202411/08, 10/24/2022, 04/23/2021 Adult Wellness Visit 02/05/2025 02/06/2024, 12/14/19 23 GFR 04/13/2025 10/14/2024, 09/06, 08/19/2024, Additional history exists Depression Screening 07/07/2025 07/07/2024, 02/06/20 24 CKD HGB USE SMARTSET 56120 10/14/202510/14, 10/14/2024, 09/16/2024, Additional history exists DTap/Tdap [...] this encounter Medical Devices Implanted Type Area Painter Helper Sign Device Identifier Shelf Expiration Date Model / Serial / Lot Intraocular Lens Implanted:Qty: 1 on 01/12/2016 by Amari Loomis MD at OR [facility] Right: Eye 11/06/2018 MX60+11.0 / [id number] / [id number] documented as of this encounter Visit Diagnoses [...] were consensually agreed upon. Care Teams Log Processor Operator Relationship Specialty Start Date End Date Linda Baeza DO [address] [facility] [place] [address] PCP - General Family Medicine 09/11/22 documented as of this encounter
--- OUTSIDE RECORDS SUMMARY | 2024-12-05 15:17 | External Medical Summary | Summary of Care ---
Author Name Unknown Organization [facility] Address [address] [place] [address] Phone [phone] Care Team Providers Care Program Writer Name Role Phone Linda Baeza DO Primary Care Provider +1- [phone] Reason for Visit * Reason Comments Medication Management Encounter Details Date Type Department Care Team (Late st Contact Info) Description 11/12/2024 9:00 AM [facility] Pharmacy Pharmacy Hematology Oncology [facility] [address] [place] [address] [facility], [facility] Hem/Onc [address] [place] [address] CLL (chronic lymphocytic leukemia) ([facility])* Allergies Active Allergy Reactions Criticality Noted Date [...] by mouth 1 Tablet daily . Active [place] 3 1000 MG Oral Capsule Take by mouth daily . Active Saline 0.65 % Nasal Solution Administer 1 Alverda into nostril as needed for Congestion. Active [...] morning. 90 Tablet 3 11/12/19 25 Active documented as of this encounter (statuses [...] mRNA, LNP-s, No Pre serve, 2-Dose Series ([employer]) 06/07/2021,12/14/2020,11/23/2020 COVID-19, LNP-s, No Preserve , William-sucrose, [...] No 07/07/2024 Does the household have a [facility] source of income? (Household - for ages [...] Rina Sorto TECH documented in this encounter Progress Notes * Jvoanna Calderon, [facility] - 11/12/2024 9:31 AM EST MEDICATION THERAPY MANAGEMENT ACALABRUTINIB TREATMENT PROGRESS NOTE Tano Aj [id number] Patient Phone Numbers : Caitlin Special[facility] pharmacy: [email or web address] Communication: Spoke to: Treatment: Medication: Acalabrutinib (Calquence) Indication: CLL Dose: 100 mg BID ( 06/14/22) Administration: +/- food Start Date: 04/30/22 Primary Wardrobe Supervisor/Oncologist: Dr. 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 Pt advised to decrease acalabrutinib to 100mg BID Per TE 05/30/22, Pt restarted rifampin. Pt did not want to start amikacin secondary to CKD. Per OV 06/07/22, allopurinol discontinued to lighten pill burden Per MTM encounter 07/26/22, lab monitoring extended to monthly in conjunction with IVIG infusions Admitted to [facility] 06/27/23-06/30/23 for viral pneumonia Admitted to [facility] 08/10/23-08/15/23 for respiratory distress Per TE 05/18/24, pt without acalabrutinib 05/14/24-05/17/24 due to traveling and experiencing withdrawal symptoms Per CM encounter 05/28/24, symptoms have since resolved Per PCP OV 08/26/24, pt reports L-sided chest pain and will undergo CT scan 09/28/24 No concerns or upcoming procedures, tolerating therapy well Changes to medication list since last visit? No Assessment and Plan: WBC/ALC elevated but overall stable ANC WNL BUN elevated Encouraged to increase fluid intake Will monitor closely All other labs stable Continue current therapy and monthly labs Assessment of compliance: compliant Assessment of adverse effects attributed to drug therapy: Nausea/Vomiting - absent Diarrhea/Dehydration - absent Bleeding - absent Symptoms of atrial fibrillation/ flutter - absent Arthralgias/Myalgias - absent Fatigue - absent Dose adjustment needed based on lab or adverse drug reaction? No Follow up: 4 weeks Jovanna Calderon, PharmD, BCOP Clinical Pharmacist, [facility] Oral Chemotherapy [facility] 11/12/2024, 9:34 AM Pertinent Labs: Latest Reference Range & Units 09/16/24 09:59 10/14/24 10:09 11/11/24 10:33 WBC 4.00 - 10.80 K/uL 15.61 (H) 18.81 (H) 20.94 (H) RBC 4.50 - 5.25 M/uL 4.02 4.06 3.95 HGB 14.0 - 16.8 g/dL 13.2 (L) 13.1 (L) 12.9 (L) HCT 40.0 - 48.4 % 41.2 41.4 40.4 MCV 82.0 - 99.5 fL 102.5 102.0 102.3 MCH 27.0 - 34.0 pg 32.8 32.3 32.7 MCHC 32.0 - 36.0 g/dL 32.0 31.6 31.9 RDW 11.5 - 15.5 % 14.9 15.3 15.6 PLT 140 - 400 K/uL 137 (L) 156 155 MPV 6.6 - 11.1 fL 11.2 12.2 11.6 CBC WITH WBC DIFFERENTIAL Rpt ! Rpt ! Rpt ! Absolute Neutrophils 1.80 - 7.70 K/uL 2.97 2.63 2.93 Absolute Lymphocytes 1.00 - 4.80 K/uL 11.86 (H) 15.99 (H) 14.45 (H) Latest Reference Range & Units 09/16/24 09:59 10/14/24 10:09 11/11/24 10:33 BUN 6 - 20 mg/dL 30 (H) 29 (H) 30 (H) CREATININE 0.6 - 1.2 mg/dL 1.1 1.1 1.1 EGFR >=60 mL/min 65 67 65 Latest Reference Range & Units 09/16/24 09:59 10/14/24 10:09 11/11/24 10:33 Albumin 3.8 - 5.0 g/dL 4.4 4.3 4.2 AST 10 - 50 U/L 21 26 22 ALT 10 - 50 U/L 15 18 17 Alkaline Phosphatase 35 - 130 U/L 79 80 76 Bilirubin, Total <=1.2 mg/dL 0.3 0.3 0.3 Latest Reference Range & Units 09/16/24 09:59 10/14/24 10:09 11/11/24 10:33 IgA 70 - 400 mg/dL 51 (L) 51 (L) 50 (L) IgG 700 - 1,600 mg/dL 860 921 865 IgM 40 - 230 mg/dL <5 (L) <5 (L) <5 (L) Time Spent on Encounter: 6 - 10 minutes Encounter Group: Hematology Encounter Interventions Item Category: Oral Chemotherapy Acalabrutinib Problem/Rationale: Safety: Needs additional monitoring - Medication Requires monitoring Pharmacist Intervention(s): Lab monitoring and Toxicity monitoring Magnitude of Intervention: Monitoring with direction (Level 1) documented in this encounter Plan of Treatment Upcoming Encounters Date Type Department Care Team (Late st Contact Info) Description 11/12/2024 11:15 AM EST Hem/Onc Treatment [facility] [place] [address] [facility] [address] [place], Chair 4 Hem Onc [address] [address] Arrived 12/09/2024 10:20 AM EST Laboratory Laboratory [place] [address] [place] [phone] [place], [address] [place] [address] 12/10/2024 9:00 AM EST Pharmacy Pharmacy Hematology Oncology [facility] [address] [place] [address] [facility], [facility] Hem/Onc [facility] [address] [place] [address] 12/10/2024 11:30 AM EST [facility] [address] [place] [address] Gemma, Chair 1 Hem Onc [facility] [address] [facility] [place] [address] 01/07/2025 11:30 AM EDT Office Visit Hematology/Oncology [facility] [place] [address] [facility] [place] [address] Carlos Pierre MD [address] [facility] [place] [address] 02/11/2025 10:00 AM EDT Nurse Only Ancillary [place] Pat[place] [address] [place], [place] [address] [place], Nurse Annual Wellness [place] [address] [place] [address] 03/29/2025 10:30 AM EDT Office Visit Urology Ghada Fraser [address] [place] [address] Paul Ha Jr., MD [address] [place] [address] 04/01/2025 11:00 AM EDT Office Visit Family Practice [address], [place] [address] [place] [address] Linda Baeza DO [address] [place] [address] Health Maintenance Due Date Last Done Comments COVID-19 Vaccine ( season) 2024 06/10/2024, 02/07/2024, 07/11/2023, Additional history exists Albumin/Creatinine Ratio 11/27/2024 11/27/2023, 10/07 CKD PHOS USE SMARTSET 26708 11/27/202411/08, 10/24/2022, 04/23/2021 Adult Wellness Visit 02/05/2025 02/06/2024, 12/14/19 23 GFR 05/11/2025 11/11/2024, 05/2025, 09/16/2024, Additional history exists Depression Screening 07/07/2025 07/07/2024, 02/06/20 24 CKD HGB USE SMARTSET 43832 11/11/202511/11, 11/11/2024, 10/14/2024, Additional history exists DTap/Tdap [...] this encounter Medical Devices Implanted Type Area Watermelon Harvesting Supervisor Device Identifier Shelf Expiration Date Model / Serial / Lot Intraocular Lens Implanted:Qty: 1 on 01/12/2016 by Amari Loomis MD at OR [facility] Right: Eye 11/06/2018 MX60+11.0 / [id number] / [id number] documented as of this encounter Visit Diagnoses Diagnosis CLL (chronic lymphocytic leukemia) (HCC)- Primary Chronic lymphoid leukemia, without mention of having achieved remission documented in this encounter Advance Directives * Full Code (Latest Code Status on File) Date Activated Date Inactivated Comments 01/12/2016 9:49 AM 01/12/2016 3:56 PM This order ref lects the patients wishes and were consensually agreed upon. Care Teams Program Writer Relationship Specialty Start Date End Date Linda Baeza DO [address] [facility] [place] [address] PCP - General Family Medicine 09/11/22 documented as of this encounter
--- OUTSIDE RECORDS SUMMARY | 2024-12-05 15:18 | External Medical Summary | Summary of Care ---
Author Name Unknown Organization [facility] Address [address] [place] [address] Phone [phone] Care Team Providers Care Accounting Lecturer Name Role Phone Linda Baeza DO Primary Care Provider +1- [phone] Reason for Referral * Precert (Within 10 days (routine)) - Authorized Specialty Diagnoses / Procedures Referred By Soham joel Referred To Contact Radiology Diagnoses Pulmonary nodules Procedures CT CHEST WO CONTRAST Osmany Valenzuela MD [address] [place] [address] Phone: tel: fax: Referral ID Status Reason Start Date Expiration Date V isits Requested Visits Authorized [id number] Authorized 10/02/2024 999 999 Reason for Visit * Reason Onset Date Comments Test Results 10/02/2024 Unexpected or In determinate Result Encounter Details Date Type Department Care Team (Late st Contact Info) Description 10/02/2024 Telephone Laboratory, [place] [address] [place] [address] Osmany Valenzuela MD [address] [place] [address] Test Results (Unexpected or Indeterminate ... Allergies Active Allergy Reactions Criticality Noted Date Comments Meperidine Hcl 02/19/2019 Lamotrigine Other (Please comment) Medium 07/19/2021 Causes patient to fall. Rofecoxib 11/06/2004 rash &swelling in legs, stumbling (vioxx) documented as of this encounter (statuses as of 10/02/2024) Medications NATURAL SUPPLEMENTIndica tions:Per Pt: to prevent arthritis Take by mouth. Vinegar/Honey Daily 0 0 07/12/20 05 Active Probiotic Product (PROBIOTIC ACIDOPHILUS BIOBEADS) Capsule Take 1 Capsule by mouth in the morning. Active Multiple Vitamins-Mineral s (MULTIVITAMIN MEN 50+) TABS Take by mouth 1 Tablet daily . Active [place] 3 1000 MG Oral Capsule Take by mouth daily . Active Saline 0.65 % Nasal Solution Administer 1 [place] into nostril as needed for Congestion. Active [...] as of this encounter (statuses as of 10/02/2024) Active Problems Problem Noted Date Diagnosed Date [...] as of this encounter (statuses as of 10/02/2024) Resolved Problems Problem Noted Date Diagnosed Date [...] as of this encounter (statuses as of 10/02/2024) Immunizations Name Administration Dates Next Due COVID-19 mRNA, LNP-s, No Pre serve, 2-Dose Series ([employer]) 06/07/2021,12/14/2020,11/23/2020 COVID-19, LNP-s, No Preserve , William-sucrose, [...] Assessment Author No 09/08/2014 2:00 PM EST Anita Coopert M, TECH * Are you blind or do you have serious difficulty seeing, even when wearing glasses? Answer Date of Assessment Author No 09/08/2014 2:00 PM EST Anita Coopert M, TECH * Do you have serious difficulty walking or climbing stairs? (5 years old or older) Answer Date of Assessment Author No 09/08/2014 2:00 PM EST Catalinanisa Rina Se, TECH * Do you have difficulty dressing or bathing? (5 years old or older) Answer Date of Assessment Author No 09/08/2014 2:00 PM EST Anita Coopert M, TECH * Because of a physical, mental, or emotional condition, do you have difficulty doing errands alone such as visiting a doctors office or shopping? (15 years old or older) Answer Date of Assessment Author No 09/08/2014 2:00 PM EST Catalinanisa Rina Se, TECH documented as of this encounter Mental Status * Because of a physical, mental, or emotional condition, do you have serious difficulty concentrating, remembering, or making decisions? (5 years old or older) Answer Entry Date Author No 09/08/2014 2:00 PM EST Allison Rina Se, TECH documented in this encounter Miscellaneous Notes * Addendum Note - Osmany Valenzuela MD - 10/02/2024 1:49 PM ESTAddended by: OSMANY VALENZUELA on: 10/02/2024 01:49 PM Modules accepted: Orders * Telephone Encounter - Osmany Valenzuela MD - 10/02/2024 1:48 PM EST Notified pt. He reports his chest wall is improved. CT scan for three months from now ordered. Can you please arrange? Thanks. FYI to PCP. Thanks. * Telephone Encounter - Qasim Fry OSA - 10/02/2024 6:52 AM EST Hello- The radiologist discovered an unexpected or indeterminate finding on Tano Rocha ([id number]) and asksthat you review the following report. Study Type: CT CHEST WO CONTRAST Date of Study: 09/28/2024 IMPRESSION: 1. Small bilateral lower lobe pulmonary nodules are likely sequela of prior infection/inflammation.Follow-up chest CT in 3 months recommended, or as per oncology protocol. 2. Additional findings as above. Please respond to this encounter to acknowledge receipt of this message and take responsibility to ensure this report is reviewed. Thank you, ANASTACIA Knapp Client Service Rep [facility] [place] documented in this encounter Plan of Treatment Upcoming Encounters Date Type Department Care Team (Late st Contact Info) Description 10/14/2024 10:00 AM EST Laboratory Laboratory [facility], [place] [address] [facility] [place] [phone] [facility] [address] [place] [address] 10/15/2024 9:00 AM EST Pharmacy Pharmacy Hematology Oncology [facility] [address] [place] [address] [facility] Hem/Onc [address] [place] [address] 10/15/2024 10:00 AM EST Hem/Onc Treatment Hematology/Oncology Treatment, [place] [address] [facility] [address] [place] [address] [place], Chair 10 Hem Onc [address] [place] [address] 01/07/2025 11:30 AM EDT Office Visit Hematology/Oncology [facility] [place] [address] [place] [address] Carlos Pierre MD [address] [facility] [place] [address] 02/11/2025 10:00 AM EDT Nurse Only Ancillary [address], [place] [address] [place] [address] [place], Nurse Annual Wellness Cold [address] [place] [address] 03/29/2025 10:30 AM EDT Office Visit Urology Ghada Fraser [address] [place] [address] Paul Ha Jr., MD [address] [place] [id number] 04/01/2025 11:00 AM EDT Office Visit [facility] [place] [address] [address] [place], [place] [address] Linda Baeza DO [address] [place] [address] Scheduled Orders Name Type Priority Associated Diagnoses Orde r Schedule CT CHEST WO CONTRAST Medical Imaging Routine Pulmonary nodules Ordered: 10/02/2024 Health Maintenance Due Date Last Done Comments COVID-19 Vaccine ( season) 2024 06/10/2024, 02/07/2024, 07/11/2023, Additional history exists Albumin/Creatinine Ratio 11/27/2024 11/27/2023, 10/07 CKD PHOS USE SMARTSET 42902 11/27/202411/08, 10/24/2022, 04/23/2021 Adult Wellness Visit 02/05/2025 02/06/2024, 12/14/19 23 GFR 03/17/2025 09/16/2024, 08/07, 07/22/2024, Additional history exists Depression Screening 07/07/2025 07/07/2024, 02/06/20 24 CKD HGB USE SMARTSET 98867 09/16/202509/16, 09/16/2024, 08/19/2024, Additional history exists DTap/Tdap Vaccines (4 - [...] this encounter Medical Devices Implanted Type Area Paper Bag Press Operator Device Identifier Shelf Expiration Date Model / Serial / Lot Intraocular Lens Implanted:Qty: 1 on 01/12/2016 by Amari Loomis MD at OR [facility] [address] Right: Eye 11/06/2018 MX60+11.0 / [id number] / [id number] documented as of this encounter Visit Diagnoses Diagnosis Pulmonary nodules- Primary Other nonspecific abnormal finding of lung field documented in this encounter Advance Directives * Full Code (Latest Code Status on File) Date Activated Date Inactivated Comments 01/12/2016 9:49 AM 01/12/2016 3:56 PM This order ref lects the patients wishes and were consensually agreed upon. Care Teams Accounting Lecturer Relationship Specialty Start Date End Date Linda Baeza DO [address] [facility] [place] [address] PCP - General Family Medicine 09/11/22 documented as of this encounter
--- OUTSIDE RECORDS SUMMARY | 2024-12-05 15:18 | External Medical Summary | Summary of Care ---
Author Name Unknown Organization [facility] Address [address] [place] [address] Phone [phone] Care Team Providers Care Diamond Picker Name Role Phone Linda Baeza DO Primary Care Provider +1- [phone] Reason for Referral * Precert (Within 10 days (routine)) - Authorized Specialty Diagnoses / Procedures Referred By Soham joel Referred To Contact Radiology Diagnoses Pulmonary nodules Procedures CT CHEST WO CONTRAST Osmany Valenzuela MD [address] [place] [address] Phone: tel: fax: Referral ID Status Reason Start Date Expiration Date V isits Requested Visits Authorized [id number] Authorized 10/02/2024 999 999 Reason for Visit * Reason Onset Date Comments Test Results 10/02/2024 Unexpected or In determinate Result Encounter Details Date Type Department Care Team (Late st Contact Info) Description 10/02/2024 Telephone Laboratory, [place] [address] [place] [address] Osmany Valenzuela MD [address] [place] [address] Test Results (Unexpected or Indeterminate ... Allergies Active Allergy Reactions Criticality Noted Date Comments Meperidine Hcl 02/19/2019 Lamotrigine Other (Please comment) Medium 07/19/2021 Causes patient to fall. Rofecoxib 11/06/2004 rash &swelling in legs, stumbling (vioxx) documented as of this encounter (statuses as of 10/03/2024) Medications NATURAL SUPPLEMENTIndica tions:Per Pt: to prevent arthritis Take by mouth. Vinegar/Honey Daily 0 0 07/12/20 05 Active Probiotic Product (PROBIOTIC ACIDOPHILUS BIOBEADS) Capsule Take 1 Capsule by mouth in the morning. Active Multiple Vitamins-Mineral s (MULTIVITAMIN MEN 50+) TABS Take by mouth 1 Tablet daily . Active [place] 3 1000 MG Oral Capsule Take by mouth daily . Active Saline 0.65 % Nasal Solution Administer 1 [place] into nostril as needed for Congestion. Active [...] as of this encounter (statuses as of 10/03/2024) Active Problems Problem Noted Date Diagnosed Date [...] as of this encounter (statuses as of 10/03/2024) Resolved Problems Problem Noted Date Diagnosed Date [...] as of this encounter (statuses as of 10/03/2024) Immunizations Name Administration Dates Next Due COVID-19 mRNA, LNP-s, No Pre serve, 2-Dose Series ([employer]) 06/07/2021,12/14/2020,11/23/2020 COVID-19, LNP-s, No Preserve , William-sucrose, [...] No 09/08/2014 2:00 PM EST Anita Coopert Se, TECH * Are you blind or do you have serious difficulty seeing, even when wearing glasses? Answer Date of Assessment Author No 09/08/2014 2:00 PM EST Rina Cooper, TECH * Do you have serious difficulty walking or climbing stairs? (5 years old or older) Answer Date of Assessment Author No 09/08/2014 2:00 PM EST Anita Coopert Se, TECH * Do you have difficulty dressing or bathing? (5 years old or older) Answer Date of Assessment Author No 09/08/2014 2:00 PM EST Anita Coopert Se, TECH * Because of a physical, mental, or emotional condition, do you have difficulty doing errands alone such as visiting a doctors office or shopping? (15 years old or older) Answer Date of Assessment Author No 09/08/2014 2:00 PM EST Anita Coopert Se, TECH documented as of this encounter Mental Status * Because of a physical, mental, or emotional condition, do you have serious difficulty concentrating, remembering, or making decisions? (5 years old or older) Answer Entry Date Author No 09/08/2014 2:00 PM EST Anita Coopert Se, TECH documented in this encounter Miscellaneous Notes * Telephone Encounter - Lnida Baeza DO - 10/03/2024 8:27 AM EST Patient also follows with pulmonology at [facility] with Dr Martins Please fax copy of CT scan to their office please * Addendum Note - Osmany Valenzuela MD [...] unexpected or indeterminate finding on Tano Rocha ([id number]) and asksthat you review the following report. [...] Thank you, ANASTACIA Knapp Client Service Rep [facility] documented in this encounter Plan of Treatment Upcoming Encounters Date Type Department Care Team (Late st Contact Info) Description 10/14/2024 10:00 AM EST Laboratory Laboratory [facility], [place] [address] [facility] [place] [phone] [place] [facility] [address] [facility] [address] 10/15/2024 9:00 AM EST Pharmacy Pharmacy Hematology Oncology [facility] [address] [place] [address] [facility], [facility] Hem/Onc [address] [place] [address] 10/15/2024 10:00 AM EST Hem/Onc Treatment Hematology/Oncology Treatment, [place] [address] [place] [address] Gemma Chair 10 Hem Onc [place] [address] [place] [address] 01/07/2025 11:30 AM EDT Office Visit Hematology/Oncology [employer] [address] [place] [address] Carlos Pierre MD [address] [place] [address] 02/11/2025 10:00 AM EDT Nurse Only Ancillary [place] [address] [place] [address] [place], Nurse Annual Wellness [place] [address] [place] [address] 03/29/2025 10:30 AM EDT Office Visit Urology Ghada Fraser [address] [place] [address] Paul aH Jr., MD [address] [place] [address] 04/01/2025 11:00 AM EDT Office Visit [facility] [place] [address] [address] [place] [address] Linda Baeza DO [address] [place] [address] Scheduled Orders Name Type Priority Associated Diagnoses Orde r Schedule CT CHEST WO CONTRAST Medical Imaging Routine Pulmonary nodules Ordered: 10/02/2024 Health Maintenance Due Date Last Done Comments COVID-19 Vaccine ( season) 2024 06/10/2024, 02/07/2024, 07/11/2023, Additional history exists Albumin/Creatinine Ratio 11/27/2024 11/27/2023, 10/07 CKD PHOS USE SMARTSET 10501 11/27/2024 02/10/2023, 10/24/2022, 04/23/2021 Adult Wellness Visit 02/05/2025 02/06/2024, 12/14/19 23 GFR 03/17/2025 09/16/2024, 08/07, 07/22/2024, Additional history exists Depression Screening 07/07/2025 07/07/2024, 02/06/20 24 CKD HGB USE SMARTSET 09545 09/16/202509/16, 09/16/2024, 08/19/2024, Additional history exists DTap/Tdap [...] encounter Medical Devices Implanted Type Area Manager Document Device Identifier Shelf Expiration Date Model / Serial / Lot Intraocular Lens Implanted:Qty: 1 on 01/12/2016 by Amari Loomis MD at OR [facility] Right: Eye 11/06/2018 MX60+11.0 / [id number] / [id number] documented as of this encounter Visit Diagnoses Diagnosis Pulmonary nodules- Primary Other nonspecific abnormal finding of lung field documented in this encounter Advance Directives * Full Code (Latest Code Status on File) Date Activated Date Inactivated Comments 01/12/2016 9:49 AM 01/12/2016 3:56 PM This order ref lects the patients wishes and were consensually agreed upon. Care Teams Diamond Picker Relationship Specialty Start Date End Date Linda Baeza DO [address] [facility] [place] [address] PCP - General Family Medicine 09/11/22 documented as of this encounter
--- OUTSIDE RECORDS SUMMARY | 2024-12-05 15:18 | External Medical Summary | Summary of Care ---
Author Name Unknown Organization [facility] Address [address] [place] [address] Phone [phone] Care Team Providers Care Hemming And Tacking Machine Operator Name Role Phone Linda Baeza DO Primary Care Provider +1- [phone] Reason for Referral * Precert (Within 10 days (routine)) - Authorized Specialty Diagnoses / Procedures Referred By Soham joel Referred To Contact Radiology Diagnoses Pulmonary nodules Procedures CT CHEST WO CONTRAST Osmany Valenzuela MD [address] [place] [address] Phone: tel: fax: Referral ID Status Reason Start Date Expiration Date V isits Requested Visits Authorized [id number] Authorized 10/02/2024 [id number] Reason for Visit * Reason Onset Date Comments Test Results 10/02/2024 Unexpected or In determinate Result Encounter Details Date Type Department Care Team (Late st Contact Info) Description 10/02/2024 Telephone Laboratory, [place] [address] [place] [address] Osmany Valenzuela MD [address] [place] [address] Test Results (Unexpected or Indeterminate [...] by mouth 1 Tablet daily . Active [place] 3 1000 MG Oral Capsule Take by mouth daily . Active Saline 0.65 % Nasal Solution Administer 1 [place] into nostril as needed for Congestion. Active [...] mRNA, LNP-s, No Pre serve, 2-Dose Series ([employer]) 06/07/2021,12/14/2020,11/23/2020 COVID-19, LNP-s, No Preserve , William-sucrose, [...] unexpected or indeterminate finding on Tano Rocha ([id number]) and asksthat you review the following report. [...] Thank you, ANASTACIA Knapp Client Service Rep [facility] Medicine [place] documented in this encounter Plan of Treatment Upcoming Encounters Date Type Department Care Team (Late st Contact Info) Description 10/14/2024 10:00 AM EST Laboratory Laboratory [facility], [place] [address] [place] [phone] [facility] [address] [place] [address] 10/15/2024 9:00 AM EST Pharmacy Pharmacy Hematology Oncology [facility] [address] [place] [address] [facility], [facility] Hem/Onc [address] [place] [address] 10/15/2024 10:00 AM EST Hem/Onc Treatment Hematology/Oncology Treatment, [place] [address] [facility] [address] [place] [address] [place], Chair 10 Hem Onc [address] [place] [address] 01/07/2025 11:30 AM EDT Office Visit Hematology/Oncology [facility] [place] [address] [place] [address] Carlos Pierre MD [address] [facility] [place] [address] 02/11/2025 10:00 AM EDT Nurse Only Ancillary [address], [place] [address] [place] [address] [place], Nurse Annual Wellness Cold [address] [place] [address] 03/29/2025 10:30 AM EDT Office Visit Urology Ghada Fraser [address] [place] [address] Paul Ha Jr., MD [address] [place] [id number] 04/01/2025 11:00 AM EDT Office Visit [facility] [address] [place], [place] [address] Linda Baeza DO [address] [place] [address] Scheduled Orders Name Type Priority Associated Diagnoses Orde r Schedule CT CHEST WO CONTRAST Medical Imaging Routine Pulmonary nodules Ordered: 10/02/2024 Health Maintenance Due Date Last Done Comments COVID-19 Vaccine ( season) 2024 06/10/2024, 02/07/2024, 07/11/2023, Additional history exists Albumin/Creatinine Ratio 11/27/2024 11/27/2023, 10/07 CKD PHOS USE SMARTSET 98317 11/27/202411/08, 10/24/2022, 04/23/2021 Adult Wellness Visit 02/05/2025 02/06/2024, 12/14/19 23 GFR 03/17/2025 09/16/2024, 08/07, 07/22/2024, Additional history exists Depression Screening 07/07/2025 07/07/2024, 02/06/20 24 CKD HGB USE SMARTSET 28943 09/16/202509/16, 09/16/2024, 08/19/2024, Additional history exists DTap/Tdap [...] this encounter Medical Devices Implanted Type Area Family Services Worker Device Identifier Shelf Expiration Date Model / Serial / Lot Intraocular Lens Implanted:Qty: 1 on 01/12/2016 by Amari Loomis MD at OR [facility] Right: Eye 11/06/2018 MX60+11.0 / [id number] / [id number] documented as of this encounter Visit Diagnoses Diagnosis Pulmonary nodules- Primary Other nonspecific abnormal finding of lung field documented in this encounter Advance Directives * Full Code (Latest Code Status on File) Date Activated Date Inactivated Comments 01/12/2016 9:49 AM 01/12/2016 3:56 PM This order ref lects the patients wishes and were consensually agreed upon. Care Teams Hemming And Tacking Machine Operator Relationship Specialty Start Date End Date Linda Baeza DO [address] [facility] [place] [address] PCP - General Family Medicine 09/11/22 documented as of this encounter
--- OUTSIDE RECORDS SUMMARY | 2024-12-05 15:18 | External Medical Summary | Summary of Care ---
Author Name Unknown Organization [facility] Address [address] [place] [address] Phone [phone] Care Team Providers Care Field Service Rep Name Role Phone Linda Baeza DO Primary Care Provider +1- [phone] Reason for Visit * Reason Comments IV Therapy IVIG * Episode Based Medications (Routine) - Authorized Specialty Diagnoses / Procedures Referred By Soham joel Referred To Contact Diagnoses CLL (chronic lymphocytic leukemia) (HCC) Hypogammaglobulinemia (HCC) Procedures [place] INJ IVIG PRIVIGEN 500 MG Carlos Pierre MD [address] [place] [address] Phone: tel: fax: Hematology/Oncology Treatment, [place] DEPT CLOSED - 08/20/23 [address] [place] [address] Phone: tel: fax: Referral ID Status Reason Start Date Expiration Date V isits Requested Visits Authorized [id number] Authorized 05/14/2023 04/21/2025 999 [id number] Encounter Details Date Type Department Care Team (Latest Contact Info) Description 10/15/2024 10:00 AM EST Hem/Onc Treatment Hematology/Oncology Treatment, [place] [address] [place] [address] Gemma, Chair 10 Hem Onc [place] [address] [place] [address] CLL (chronic lymphocytic leukemia) (HCC)*; Hypogammaglobulinem ia ([facility]) Allergies Active Allergy Reactions Criticality Noted Date Comments Meperidine Hcl 02/19/2019 Lamotrigine Other (Please comment) Medium 07/19/2021 Causes patient to fall. Rofecoxib 11/06/2004 rash &swelling in legs, stumbling (vioxx) documented as of this encounter (statuses as of 10/15/2024) Medications NATURAL SUPPLEMENTIndica tions:Per Pt: to prevent arthritis Take by mouth. Vinegar/Honey Daily 0 0 07/12/20 05 Active Probiotic Product (PROBIOTIC ACIDOPHILUS BIOBEADS) Capsule Take 1 Capsule by mouth in the morning. Active Multiple Vitamins-Mineral s (MULTIVITAMIN MEN 50+) TABS Take by mouth 1 Tablet daily . Active [place] 3 1000 MG Oral Capsule Take by mouth daily . Active Saline 0.65 % Nasal Solution Administer 1 [place] into nostril as needed for Congestion. Active [...] Tablet (Acalabrutinib Maleate)Indicati ons:CLL (chronic lymphocytic leukemia) ([facility]) Take 100 mg by mouth in the morning and 100 mg before bedtime. 60 Tablet 11 08/03/20 24 Active Finasteride 5 MG Oral Tablet (Proscar) Take 1 Tablet by mouth in the morning. 90 Tablet 08/10/20 24 Active documented as of this encounter (statuses as of 10/15/2024) Active Problems Problem Noted Date Diagnosed Date [...] as of this encounter (statuses as of 10/15/2024) Resolved Problems Problem Noted Date Diagnosed Date [...] as of this encounter (statuses as of 10/15/2024) Immunizations Name Administration Dates Next Due COVID-19 mRNA, LNP-s, No Pre serve, 2-Dose Series ([employer]MALI) 06/07/2021,12/14/2020,11/23/2020 COVID-19, LNP-s, No Preserve , William-sucrose, Ages 12+ (MICMALI) 02/08/2022 COVID-19, MRNA-LNP, 24-25, P F, 50 [...] Rina Sorto TECH documented in this encounter Nursing Notes [...] Description 11/11/2024 10:10 AM EST Laboratory Laboratory [facility] [place] [address] [facility] [place] [phone] Jonatan Schneider [facility] [address] [facility] [address] 11/12/2024 9:00 AM EST Pharmacy Pharmacy Hematology Oncology [facility]3], [place] [address] [place] [address] [facility] Hem/Onc [address] [place] [address] 11/12/2024 10:00 AM EST Hem/Onc Treatment Hematology/Oncology Treatment, [place] [address] [place] [address] Gemma, Chair 10 Hem Onc [place] [address] [place] [place], [place] [address] 01/07/2025 11:30 AM EDT Office Visit Hematology/Oncology [place] [address] [place] [address] Carlos Pierre MD [address] [place], [place] [address] 02/11/2025 10:00 AM EDT Nurse Only Ancillary [facility] [place] [address] [facility] [address] [place] [address] [facility], Nurse Annual Wellness Cold [address] [facility] [facility] [place] [address] 03/29/2025 10:30 AM EDT Office Visit Urology Ghada Fraser [address] [facility] [address] [place] [address] Paul Ha Jr., MD [address] [place] [address] 04/01/2025 11:00 AM EDT Office Visit Family Practice [facility] [address], [place] [address] [facility] [facility] [place] [address] Linda Baeza, [address] [facility] [place] [address] Health Maintenance Due Date Last Done Comments COVID-19 Vaccine ( season) 2024 06/10/2024, 02/07/2024, 07/11/2023, Additional history exists Albumin/Creatinine Ratio 11/27/2024 11/27/2023, 10/07 CKD PHOS USE SMARTSET 18599 11/27/2024/10/2023, 10/24/2022, 04/23/2021 Adult Wellness Visit 02/05/2025 02/06/2024, 12/14/19 23 GFR 04/13/2025 10/14/2024, 09/06, 08/19/2024, Additional history exists Depression Screening 07/07/2025 07/07/2024, 02/06/20 24 CKD HGB USE SMARTSET 43865 10/14/202510/14, 10/14/2024, 09/16/2024, Additional history exists DTap/Tdap [...] this encounter Medical Devices Implanted Type Area Regional Dedicated Truck Driver Device Identifier Shelf Expiration Date Model / Serial / Lot Intraocular Lens Implanted:Qty: 1 on 01/12/2016 by Amari Loomis MD at [facility] Right: Eye 11/06/2018 MX60+11.0 / [id number] / [id number] documented as of this encounter Visit Diagnoses [...] Starting on Andreina 10/15/24 at 1115, Until Discontinued, Maximum of 4 grams (4000 mg) per day.Indications:CLL (chronic lymphocytic leukemia) (HCC),Hypogammaglobulinemia (HCC) Given 10/15/2024 10:14 AM EST 650 mg diphenhydrAMINE (Benadryl) cap 25 mg 25 mg, Oral, ONCE PRN If previous infusion reaction with IVIG, Starting on Sat10/15/24 at 1115, Until DiscontinuedIndications:CLL (chronic lymphocytic leukemia) (HCC),Hypogammaglobulinemia (HCC) Given 10/15/2024 10:15 AM EST 25 mg diphenhydrAMINE (Benadryl) inj 50 mg 50 mg, IV Push, ONCE PRN Other, Hypersensitivity Reaction, Starting on Sat10/15/24 at 1013, Until Sat10/16/24 at 1012, For 24 hoursIndications:CLL (chronic lymphocytic leukemia) (HCC),Hypogammaglobulinemia (HCC) EPINEPHrine 1 MG/ML inj 0.3 mg 0.3 mg, Intramuscular, ONCE PRN Other, Hypersensitivity Reaction or Anaphylaxis, Starting on Andreina 10/15/24 at 1013, Until Sat10/16/24 at 1012, For 24 hoursIndications:CLL (chronic lymphocytic leukemia) (HCC),Hypogammaglobulinemia (HCC) hEParin 100 UNIT/ML Lock Flush inj 500 Units 500 Units (5 mL), IV Lock, PRN Other, IV Flush, Starting on Andreina 10/15/24 at 1013, Until Sat10/16/24 at 1012, For 24 hours, Do not flush if lock, PICC, or central line not in place; IV infusing or unable to flush.Indications:CLL (chronic lymphocytic leukemia) (HCC),Hypogammaglobulinemia (HCC) Hydrocortisone Sod Suc (PF) (Solu-Cortef) inj 100 mg 100 mg, IV Push, ONCE PRN Other, Hypersensitivity Reaction, Starting on Sat10/15/24 at 1013, Until Sat10/16/24 at 1012, For 24 hoursIndications:CLL (chronic lymphocytic leukemia) (HCC),Hypogammaglobulinemia (HCC) NSS infusion 500 mL, Intravenous, at 50 mL/hr Administer over 10 Hours, PRN, Starting on Sat10/15/24 at 1115, Until Sat10/15/24 at 2114, Other, maintain lineIndications:CLL (chronic lymphocytic leukemia) (HCC),Hypogammaglobulinemia (HCC) Start Infusion 10/15/2024 10:13 AM EST 500 mL 50 mL/hr sodium chloride 0.9 % flush central line 10 mL 10 mL, IV Push, PRN Other, IV Flush, Starting on Sat10/15/24 at 1013, Until Sat10/16/24 at 1012, For 24 hours, Do not flush if lock, PICC, or central line not in place; IV infusing or unable to flush.Indications:CLL (chronic lymphocytic leukemia) (HCC),Hypogammaglobulinemia (HCC) Inactive Administered Medications - up to 3 most recent administrations Medication Order MAR Action Action Date Dose Rate Site Immune Globulin Human- IVIG 10% (Privigen) IV 20 g 20 g, IV Piggyback, ONCE, 1 dose, On Sat10/15/24 at 1245, PRIVIGEN infusion instructions Infusion Rate [...] g, IV Piggyback, ONCE, 1 dose, On Sat10/15/24 at 1145, PRIVIGEN infusion instructions Infusion Rate [...] Change 10/15/2024 10:47 AM EST 44 mL/hr documented in this encounter Advance Directives * Full Code (Latest Code Status on File) Date Activated Date Inactivated Comments 01/12/2016 9:49 AM 01/12/2016 3:56 PM This order ref lects the patients wishes and were consensually agreed upon. Care Teams Field Service Rep Relationship Specialty Start Date End Date Linda Baeza DO [address] [facility] [place] [address] PCP - General Family Medicine 09/11/22 documented as of this encounter
--- OUTSIDE RECORDS SUMMARY | 2024-12-05 15:18 | External Medical Summary | Summary of Care ---
Author Name Unknown Organization [facility] Address [address] [place] [address] Phone [phone] Care Team Providers Care Patcher Wood Welder Name Role Phone Linda Baeza DO Primary Care Provider +1- [phone] Reason for Visit * Reason Comments Outpatient Testing Encounter Details Date Type Department Care Team (Late st Contact Info) Description 10/14/2024 10:00 AM EST Laboratory Laboratory [facility] [place] [address] [place] [address] [facility] [address] [place] [address] CLL (chronic lymphocytic leukemia) ([facility]) Allergies Active Allergy Reactions Criticality Noted Date Comments Meperidine Hcl 02/19/2019 Lamotrigine Other (Please comment) Medium 07/19/2021 Causes patient to fall. Rofecoxib 11/06/2004 rash &swelling in legs, stumbling (vioxx) documented as of this encounter (statuses as of 10/14/2024) Medications NATURAL SUPPLEMENTIndica tions:Per Pt: to prevent arthritis Take by mouth. Vinegar/Honey Daily 0 0 07/12/20 05 Active Probiotic Product (PROBIOTIC ACIDOPHILUS BIOBEADS) Capsule Take 1 Capsule by mouth in the morning. Active Multiple Vitamins-Mineral s (MULTIVITAMIN MEN 50+) TABS Take by mouth 1 Tablet daily . Active [place] 3 1000 MG Oral Capsule Take by mouth daily . Active Saline 0.65 % Nasal Solution Administer 1 [place] into nostril as needed for Congestion. Active [...] as of this encounter (statuses as of 10/14/2024) Active Problems Problem Noted Date Diagnosed Date [...] as of this encounter (statuses as of 10/14/2024) Resolved Problems Problem Noted Date Diagnosed Date [...] as of this encounter (statuses as of 10/14/2024) Immunizations Name Administration Dates Next Due COVID-19 mRNA, LNP-s, No Pre serve, 2-Dose Series ([employer]) 06/07/2021,12/14/2020,11/23/2020 COVID-19, LNP-s, No Preserve , William-sucrose, [...] No 07/07/2024 Does the household have a [facility]ley medical centerr source of income? (Household - [...] Assessment Author No 09/08/2014 2:00 PM FLORIN Rina Cooper TECH * Because of a [...] Care Team (Late st Contact Info) Description 10/15/2024 9:00 AM EST Pharmacy Pharmacy Hematology Oncology [address] [address] [place] Hem[facility] [address] 10/15/2024 10:00 AM EST Hem/Onc Treatment Hematology/Oncology Treatment, [place] [address] [facility] [place] [address] Gemma, Chair [address] [place] [address] 01/07/2025 11:30 AM EDT Office Visit Hematology/Oncology [facility] [place] [address] [facility] [place] [address] Carlos Pierre MD [address] [facility] [address] 02/11/2025 10:00 AM EDT Nurse Only Ancillary [place] [address] [place] [address] [place], Nurse Annual Wellness Cold [address] [place] [address] 03/29/2025 10:30 AM EDT Office Visit Urology Ghada [place] [address] [place] [address] Paul Ha Jr., MD [address] [place] [address] 04/01/2025 11:00 AM EDT Office Visit [facility] [place], [place] [address] [place] [address] Linda Baeza DO [address] [address] [place] [address] Pending Results Name Type Priority Associated Diagnoses Date /Time IMMUNOGLOBULIN QUANTITATIVE Lab STAT CLL (chronic lymphocytic leukemia) ([facility]) 10/14/2024 10:09 AM EST CBC WITH WBC DIFFERENTIAL Lab STAT CLL (chronic lymphocytic leukemia) ([facility]) 10/14/2024 10:09 AM EST COMPREHENSIVE METABOLIC PANEL Lab STAT CLL (chronic lymphocytic leukemia) ([facility]) 10/14/2024 10:09 AM EST CBC Lab STAT CLL (chronic lymphocytic leukemia) ([facility]) 10/14/2024 10:09 AM EST DIFFERENTIAL, AUTOMATED Lab STAT CLL (chronic lymphocytic leukemia) ([facility]) 10/14/2024 10:09 AM EST Health Maintenance Due Date Last Done Comments COVID-19 Vaccine ( season) 2024 06/10/2024, 02/07/2024, 07/11/2023, Additional history exists Albumin/Creatinine Ratio 11/27/2024 11/27/2023, 10/07 CKD PHOS USE SMARTSET 24936 11/27/2024 0210/2023, 10/24/2022, 04/23/2021 Adult Wellness Visit 02/05/2025 02/06/2024, 12/14/19 23 GFR 03/17/2025 09/16/2024, 08/07, 07/22/2024, Additional history exists Depression Screening 07/07/2025 07/07/2024, 02/06/20 24 CKD HGB USE SMARTSET 00739 09/16/202509/16, 09/16/2024, 08/19/2024, Additional history exists DTap/Tdap [...] this encounter Medical Devices Implanted Type Area Receiving Associate Device Identifier Shelf Expiration Date Model / Serial / Lot Intraocular Lens Implanted:Qty: 1 on 01/12/2016 by Amari Loomis MD at [facility] Right: Eye 11/06/2018 MX60+11.0 / [id number] / [id number] documented as of this encounter Visit Diagnoses Diagnosis CLL (chronic lymphocytic leukemia) (HCC) Chronic lymphoid leukemia, without mention of having achieved remission documented in this encounter Advance Directives * Full Code (Latest Code Status on File) Date Activated Date Inactivated Comments 01/12/2016 9:49 AM 01/12/2016 3:56 PM This order ref lects the patients wishes and were consensually agreed upon. Care Teams Patcher Wood Welder Relationship Specialty Start Date End Date Linda Baeza DO [address] [facility] [place] [address] PCP - General Family Medicine 09/11/22 documented as of this encounter
--- OUTSIDE RECORDS SUMMARY | 2024-12-05 15:18 | External Medical Summary | Summary of Care ---
Author Name Unknown Organization [facility] Address [address] [place] [address] Phone [phone] Care Team Providers Care Bilingual Medical Assistant Name Role Phone Linda Baeza DO Primary Care Provider +1- [phone] Reason for Visit * Reason Comments IV Therapy IVIG * Episode Based Medications (Routine) - Authorized Specialty Diagnoses / Procedures Referred By Soham joel Referred To Contact Diagnoses CLL (chronic lymphocytic leukemia) (HCC) Hypogammaglobulinemia (HCC) Procedures [place] INJ IVIG PRIVIGEN 500 MG Carlos Pierre MD [address] [place] [address] Phone: tel: fax: Hematology/Oncology Treatment, [place] DEPT CLOSED - 08/20/23 [address] [place] [address] Phone: tel: fax: Referral ID Status Reason Start Date Expiration Date V isits Requested Visits Authorized [id number] Authorized 05/14/2023 04/21/2025 999 [id number] Encounter Details Date Type Department Care Team (Latest Contact Info) Description 09/18/2024 10:00 AM EST Hem/Onc Treatment Hematology/Oncology Treatment, [place] [address] [place] [address] CLL [...] by mouth 1 Tablet daily . Active [place] 3 1000 MG Oral Capsule Take by mouth daily . Active Saline 0.65 % Nasal Solution Administer 1 [place] into nostril as needed for Congestion. Active [...] mRNA, LNP-s, No Pre serve, 2-Dose Series ([employer]) 06/07/2021,12/14/2020,11/23/2020 COVID-19, LNP-s, No Preserve , William-sucrose, Ages 12+ ([employer]) 02/08/2022 COVID-19, MRNA-LNP, 24-25, P F, 50 [...] Author No 09/08/2014 2:00 PM EST Rina Coopre TECH * Do you have difficulty dressing [...] AM EST Laboratory Laboratory [place] [address] [place] [phone] [place] [address] 11/12/2024 9:00 AM EST Pharmacy Pharmacy Hematology Oncology [facility] [address] [place] [address] [place] Hem/Onc [address] [place] [address] 11/12/2024 10:00 AM EST Hem/Onc Treatment Hematology/Oncology Treatment, [place] [address] [place] [phone] Gemma, Chair 10 Hem Onc [facility] [address] [facility] [place] [address] 01/07/2025 11:30 AM EDT Office Visit Hematology/Oncology [facility] [place] [address] [facility] [place] [address] Carlos Pierre MD [address] [facility] [place] [address] 02/11/2025 10:00 AM EDT Nurse Only Ancillary [place] [address] [place] [address] [place], Nurse Annual Wellness Cold [address] [place] [address] 03/29/2025 10:30 AM EDT Office Visit Urology Ghada [place] [address] [place] [address] Paul Ha Jr., MD [address] [place] [id number] 04/01/2025 11:00 AM EDT Office Visit Family Practice [address], [place] [address] [place] [address] Linda Baeza DO [address] [place] [address] Health Maintenance Due Date Last Done Comments COVID-19 Vaccine ( season) 2024 06/10/2024, 02/07/2024, 07/11/2023, Additional history exists Albumin/Creatinine Ratio 11/27/2024 11/27/2023, 10/07 CKD PHOS USE SMARTSET 58908 11/27/202411/08, 10/24/2022, 04/23/2021 Adult Wellness Visit 02/05/2025 02/06/2024, 12/14/19 23 GFR 04/13/2025 10/14/2024, 09/06, 08/19/2024, Additional history exists Depression Screening 07/07/2025 07/07/2024, 02/06/20 24 CKD HGB USE SMARTSET 87680 10/14/202510/14, 10/14/2024, 09/16/2024, Additional history exists DTap/Tdap [...] this encounter Medical Devices Implanted Type Area Channeler Runner Device Identifier Shelf Expiration Date Model / Serial / Lot Intraocular Lens Implanted:Qty: 1 on 01/12/2016 by Amari Loomis MD at OR [facility] Right: Eye 11/06/2018 MX60+11.0 / [id number] / [id number] documented as of this encounter Visit Diagnoses [...] and were consensually agreed upon. Care Teams Bilingual Medical Assistant Relationship Specialty Start Date End Date Linda Baeza DO [address] [facility] [place] [address] PCP - General Family Medicine 09/11/22 documented as of this encounter
--- OUTSIDE RECORDS SUMMARY | 2024-12-05 15:18 | External Medical Summary ---
Author Name Unknown Address Unknown Organization K01:LABORATORY C - [address] [facility] [address] Laboratory Report Ordering Provider Test Date Status KASSIDY RADFORD 10/14/2024 10:09:19 Final Observation Date Value Abnormality Reference (Units ) Status SYNC LEUKOCYTES IN BLOOD BY AUTOMATED COUNT 10/14/2024 10:09:19 18.81 Above high normal 4.00-10.80 (K/uL) Final Neutrophils/100 leukocytes in Blood by Manual count 10/14/2024 10:09:19 14.0 Below low normal 40.0-75.0 (%) Final Lymphocytes/100 leukocytes in Blood by Manual count 10/14/2024 10:09:19 85.0 Above high normal 18.0-42.0 (%) Final Known CLL Monocytes/100 leukocytes in Blood by Manual count 10/14/2024 10:09:19 1.0 1.0-11.0 (%) Final Neutrophils [#/volume] in Blood by Manual count 10/14/2024 10:09:19 2.63 1.80-7.70 (K/uL) Final Lymphocytes [#/volume] in Blood by Manual count 10/14/2024 10:09:19 15.99 Above high normal 1.00-4.80 (K/uL) Final Monocytes [#/volume] in Blood by Manual count 10/14/2024 10:09:19 0.19 0.00-1.10 (K/uL) Final Smudge cells [Presence] in Blood by Light microscopy 10/14/2024 10:09:19 Present Abnormal None Seen Final Performing Location [facility] - [address] [facility] [address]
--- OUTSIDE RECORDS SUMMARY | 2024-12-05 15:18 | External Medical Summary ---
Author Name Unknown Address Unknown Organization K01:LABORATORY C - [address] [place] [address] Laboratory Report Ordering Provider Test Date Status KASSIDY RADFORD 10/14/2024 10:09:19 Final Observation Date Value Abnormality Reference (Units ) Status IgG 10/14/2024 10:09:19 [phone] ( mg/dL) Final IgA 10/14/2024 10:09:19 51 Below low normal 70- 400 (mg/dL) Final IgM 10/14/2024 10:09:19 <5 Below low normal 40- 230 (mg/dL) Final Performing Location [facility] - [address] [place] [address]
--- OUTSIDE RECORDS SUMMARY | 2024-12-05 15:18 | External Medical Summary | Summary of Care ---
Author Name Unknown Organization [facility] Address [address] [place] [address] Phone [phone] Care Team Providers Care Risk Compliance Analyst Name Role Phone Linda Baeza DO Primary Care Provider +1- [phone] Reason for Referral * Precert (Within 10 days (routine)) - Authorized Specialty Diagnoses / Procedures Referred By Soham joel Referred To Contact Radiology Diagnoses Pulmonary nodules Procedures CT CHEST WO CONTRAST Osmany Valenzuela MD [address] [place] [address] Phone: tel: fax: Referral ID Status Reason Start Date Expiration Date V isits Requested Visits Authorized [id number] Authorized 10/02/2024 999 999 Reason for Visit * Reason Onset Date Comments Test Results 10/02/2024 Unexpected or In determinate Result Encounter Details Date Type Department Care Team (Late st Contact Info) Description 10/02/2024 Telephone Laboratory, [place] [address] [place] [address] Osmany Valenzuela MD [address] [place] [address] Test Results (Unexpected or Indeterminate [...] by mouth 1 Tablet daily . Active [place] 3 1000 MG Oral Capsule Take by mouth daily . Active Saline 0.65 % Nasal Solution Administer 1 [place] into nostril as needed for Congestion. Active [...] mRNA, LNP-s, No Pre serve, 2-Dose Series ([employer]) 06/07/2021,12/14/2020,11/23/2020 COVID-19, LNP-s, No Preserve , William-sucrose, [...] unexpected or indeterminate finding on Tano Rocha ([id number]) and asksthat you review the following report. [...] Thank you, ANASTACIA Knapp Client Service Rep [facility] [place] documented in this encounter Plan of Treatment Upcoming Encounters Date Type Department Care Team (Late st Contact Info) Description 10/14/2024 10:00 AM EST Laboratory Laboratory [facility] [place] [address] [facility] [place] [id number] [facility] [address] [place] [address] 10/15/2024 9:00 AM EST Pharmacy Pharmacy Hematology Oncology [facility] [address] [place] [address] [facility] Hem/Onc [address] [place] [address] 10/15/2024 10:00 AM EST Hem/Onc Treatment Hematology/Oncology Treatment, [place] [address] [place] [address] Gemma, Chair [address] Hem On[address] [place] [address] 01/07/2025 11:30 AM EDT Office Visit Hematology/Oncology [facility] [place] [address] [place] [address] Carlos Pierre MD [address] [facility] [place] [address] 02/11/2025 10:00 AM EDT Nurse Only Ancillary [address], [place] [address] [place] [address] [place], Nurse Annual Wellness Cold [address] [place] [address] 03/29/2025 10:30 AM EDT Office Visit Urology Ghada Fraser [address] [place] [address] Paul Ha Jr., MD [address] [place] [id number] 04/01/2025 11:00 AM EDT Office Visit Family Practice [address] [address] [place], [place] [address] Linda Baeza DO [address] [place] [address] Scheduled Orders Name Type Priority Associated Diagnoses Orde r Schedule CT CHEST WO CONTRAST Medical Imaging Routine Pulmonary nodules Ordered: 10/02/2024 Health Maintenance Due Date Last Done Comments COVID-19 Vaccine ( season) 2024 06/10/2024, 02/07/2024, 07/11/2023, Additional history exists Albumin/Creatinine Ratio 11/27/2024 11/27/2023, 10/07 CKD PHOS USE SMARTSET 13807 11/27/202411/08, 10/24/2022, 04/23/2021 Adult Wellness Visit 02/05/2025 02/06/2024, 12/14/19 23 GFR 03/17/2025 09/16/2024, 08/07, 07/22/2024, Additional history exists Depression Screening 07/07/2025 07/07/2024, 02/06/20 24 CKD HGB USE SMARTSET 95741 09/16/202509/16, 09/16/2024, 08/19/2024, Additional history exists DTap/Tdap [...] this encounter Medical Devices Implanted Type Area Automotive Electrical Helper Device Identifier Shelf Expiration Date Model / Serial / Lot Intraocular Lens Implanted:Qty: 1 on 01/12/2016 by Amari Loomis MD at OR [facility] Right: Eye 11/06/2018 MX60+11.0 / [id number] / [id number] documented as of this encounter Visit Diagnoses Diagnosis Pulmonary nodules- Primary Other nonspecific abnormal finding of lung field documented in this encounter Advance Directives * Full Code (Latest Code Status on File) Date Activated Date Inactivated Comments 01/12/2016 9:49 AM 01/12/2016 3:56 PM This order ref lects the patients wishes and were consensually agreed upon. Care Teams Risk Compliance Analyst Relationship Specialty Start Date End Date Linda Baeza DO [address] [facility] [place] [address] PCP - General Family Medicine 09/11/22 documented as of this encounter
--- OUTSIDE RECORDS SUMMARY | 2024-12-05 15:18 | External Medical Summary ---
Author Name Unknown Address Unknown Organization K01:[facility]ATORY [facility] [place] [address] [facility] [address] Laboratory Report Ordering Provider Test Date Status KASSIDY RADFORD 10/14/2024 10:09:19 Final Observation Date Value Abnormality Reference (Units ) Status WBC, Total 10/14/2024 10:09:19 18.81 Above high normal 4.00-10.80 (K/uL) Final RBC 10/14/2024 10:09:19 4.06 4.50-5.25 (M/uL) Final Hemoglobin 10/14/2024 10:09:19 13.1 Below low normal 14.0-16.8 (g/dL) Final HCT 10/14/2024 10:09:19 41.4 40.0-48.4 (%) Final MCV 10/14/2024 10:09:19 102.0 82.0-99.5 (fL) Final MCH 10/14/2024 10:09:19 32.3 27.0-34.0 (pg) Final MCHC 10/14/2024 10:09:19 31.6 32.0-36.0 (g/dL) Final RDW 10/14/2024 10:09:19 15.3 11.5-15.5 (%) Final Platelets 10/14/2024 10:09:19 156 140-400 (K/uL) Final MPV 10/14/2024 10:09:19 12.2 6.6-11.1 (fL) Final Nucleated erythrocytes/100 leukocytes [Ratio] in Blood by Automated count 10/14/2024 10:09:19 0 <=0 (/100 WBCs) Final Performing Location [facility] - [address] [place] [address]
--- OUTSIDE RECORDS SUMMARY | 2024-12-05 15:18 | External Medical Summary ---
Author Name Unknown Address Unknown Organization K01:LABORATORY [facility] - [address] [facility] [address] Laboratory Report Ordering Provider Test Date Status KASSIDY RADFORD 10/14/2024 10:09:19 Final Observation Date Value Abnormality Reference (Units ) Status BUN 10/14/2024 10:09:19 29 Above high normal 6-20 (mg/dL) Final Creatinine 10/14/2024 10:09:19 1.1 0.6-1.2 (mg/dL) Final Glomerular filtration rate/1.73 sq M.predicted [Volume Rate/Area] in Serum, Plasma or Blood by Creatinine-based formula (CKD-EPI) 10/14/2024 10:09:19 67 >=60 (mL/min) Final eGFR is calculated based on the CKD-EPI 2020 equation. Sodium 10/14/2024 10:09:19 141 135-146 (m mol/L) Final Potassium 10/14/2024 10:09:19 4.0 3.5-5.1 (m mol/L) Final Cl 10/14/2024 10:09:19 104 98-107 (mm ol/L) Final CO2 10/14/2024 10:09:19 27 22-32 (mmo l/L) Final Anion gap 10/14/2024 10:09:19 10 7-15 (mmol /L) Final Glucose 10/14/2024 10:09:19 78 70-120 (mg /dL) Final Albumin 10/14/2024 10:09:19 4.3 3.8-5.0 (g /dL) Final AST (Aspartate aminotransferase) 10/14/2024 10:09:19 26 10-50 (U/L) Final Alk Phos 10/14/2024 10:09:19 80 35-130 (U/ L) Final Bilirubin, Total 10/14/2024 10:09:19 0.3 <=1 .2 (mg/dL) Final Calcium 10/14/2024 10:09:19 10.0 8.4-10.2 ( mg/dL) Final Protein 10/14/2024 10:09:19 6.4 6.0-8.3 (g /dL) Final ALT (Alanine aminotransferase) 10/14/2024 10:09:19 18 10-50 (U/L) Final Performing Location LABORATORY [facility] - [address] [facility] [address]
--- OUTSIDE RECORDS SUMMARY | 2024-12-05 15:18 | External Medical Summary | Summary of Care ---
Author Name Unknown Organization [facility] Address [address] [place] [address] Phone [phone] Care Team Providers Care Vamp Marker Name Role Phone Linda Baeza DO Primary Care Provider +1- [phone] Reason for Visit * Reason Comments Medication Management Encounter Details Date Type Department Care Team (Late st Contact Info) Description 10/15/2024 9:00 AM [facility] Pharmacy Pharmacy Hematology Oncology [facility] [address] [place] [address] [facility] Hem/Onc [address] [place] [address] CLL (chronic lymphocytic leukemia) ([facility])* Allergies Active Allergy Reactions Criticality Noted Date [...] by mouth 1 Tablet daily . Active [place] 3 1000 MG Oral Capsule Take by mouth daily . Active Saline 0.65 % Nasal Solution Administer 1 [place] into nostril as needed for Congestion. Active [...] mRNA, LNP-s, No Pre serve, 2-Dose Series ([employer]) 06/07/2021,12/14/2020,11/23/2020 COVID-19, LNP-s, No Preserve , William-sucrose, [...] No 07/07/2024 Does the household have a [facility] source of income? (Household - for [...] documented in this encounter Progress Notes * Jovanna Calderon, [facility] - 10/15/2024 8:54 AM EST MEDICATION THERAPY MANAGEMENT ACALABRUTINIB TREATMENT PROGRESS NOTE Tano Aj [id number] Patient Phone Numbers : Caitlin Specialty pharmacy: [facility] Communication: Left message requesting return call to assess toleration to therapy Treatment: Medication: Acalabrutinib (Calquence) Indication: CLL Dose: 100 mg BID ( 06/14/22) Administration: +/- food Start Date: 04/30/22 Primary Gang Knife Fish Chopper/Oncologist: Dr. Ihsan Pierre Supportive Care Meds: None [...] in conjunction with IVIG infusions Admitted to [facility] 06/27/23-06/30/23 for viral pneumonia Admitted to [facility] 08/10/23-08/15/23 for respiratory distress Per TE 05/18/24, pt without acalabrutinib 05/14/24-05/17/24 due to traveling and experiencing withdrawal symptoms Per CM encounter 05/28/24, symptoms have since resolved Per PCP OV 08/26/24, pt reports L-sided chest pain and will undergo CT scan 09/28/24 Changes to medication list since last visit? No Assessment and Plan: WBC/ALC elevated but overall stable ANC WNL Hgb low but improving PLT improving to WNL Per PI, no dose adjustment recommended for PLT > 50K with bleeding Will monitor closely BUN elevated Encouraged to increase fluid intake Will monitor closely Ca2+ declining to WNL All other labs stable Continue current therapy and monthly labs Assessment of compliance: N/A Assessment of adverse effects attributed to drug therapy: N/A Dose adjustment needed based on lab or adverse drug reaction? No Follow up: 4 weeks Jovanna Calderon, PharmD, BCOP Clinical Pharmacist, [facility] Oral Chemotherapy [facility] [address] 10/15/2024, 2:27 PM Pertinent Labs: Latest Reference Range & Units 08/19/24 09:56 09/16/24 09:59 10/14/24 10:09 WBC 4.00 - 10.80 K/uL 13.88 (H) 15.61 (H) 18.81 (H) RBC 4.50 - 5.25 M/uL 3.81 4.02 4.06 HGB 14.0 - 16.8 g/dL 12.3 (L) 13.2 (L) 13.1 (L) HCT 40.0 - 48.4 % 39.0 (L) 41.2 41.4 MCV 82.0 - 99.5 fL 102.4 102.5 102.0 MCH 27.0 - 34.0 pg 32.3 32.8 32.3 MCHC 32.0 - 36.0 g/dL 31.5 32.0 31.6 RDW 11.5 - 15.5 % 15.0 14.9 15.3 PLT 140 - 400 K/uL 152 137 (L) 156 MPV 6.6 - 11.1 fL 11.7 11.2 12.2 CBC WITH WBC DIFFERENTIAL Rpt ! Rpt ! Rpt ! Absolute Neutrophils 1.80 - 7.70 K/uL 3.89 2.97 2.63 Absolute Lymphocytes 1.00 - 4.80 K/uL 7.91 (H) 11.86 (H) 15.99 (H) Latest Reference Range & Units 08/19/24 09:56 09/16/24 09:59 10/14/24 10:09 BUN 6 - 20 mg/dL 26 (H) 30 (H) 29 (H) CREATININE 0.6 - 1.2 mg/dL 1.1 1.1 1.1 EGFR >=60 mL/min 69 65 67 Latest Reference Range & Units 08/19/24 09:56 12 09:59 10/14/24 10:09 CALCIUM 8.4 - 10.2 mg/dL 10.2 10.3 (H) 10.0 Latest Reference Range & Units 08/19/24 09:56 09/16/24 09:59 10/14/24 10:09 Albumin 3.8 - 5.0 g/dL 4.2 4.4 4.3 AST 10 - 50 U/L 23 21 26 ALT 10 - 50 U/L 15 15 18 Alkaline Phosphatase 35 - 130 U/L 69 79 80 Bilirubin, Total <=1.2 mg/dL 0.3 0.3 0.3 Time Spent on Encounter: 6 - 10 [...] Description 11/11/2024 10:10 AM EST [facility] [address] [place] [address] Jonatan Schneider [facility] [address] [facility] [place] [address] 11/12/2024 9:00 AM EST Pharmacy Pharmacy Hematology Oncology [place] [address] [place] [address] [facility] Hem/Onc [facility] [place] [address] 11/12/2024 10:00 AM EST Hem/Onc Treatment Hematology/Oncology Treatment, [place] [address] [place] [address] Park, Chair 10 Hem Onc [address] [place], [place] [address] 01/07/2025 11:30 AM EDT Office Visit Hematology/Oncology [facility] [place] [address] [place], [place] [address] Carlos Pierre MD [address] [facility] [place], [place] [address] 02/11/2025 10:00 AM EDT Nurse Only Ancillary [place] [address] [place] [address] [place], Nurse Annual Wellness Cold [address] [place] [address] 03/29/2025 10:30 AM EDT Office Visit Urology Ghada Fraser [address] [facility] [address] [place] [address] Paul Ha Jr., MD [address] [place] [id number] 04/01/2025 11:00 AM EDT Office Visit [facility] [address] [place] [address] Linda Baeza, [address] [place] [address] Health Maintenance Due Date Last Done Comments COVID-19 Vaccine ( season) 2024 06/10/2024, 02/07/2024, 07/11/2023, Additional history exists Albumin/Creatinine Ratio 11/27/2024 11/27/2023, 10/07 CKD PHOS USE SMARTSET 62330 11/27/202411/08, 10/24/2022, 04/23/2021 Adult Wellness Visit 02/05/2025 02/06/2024, 12/14/19 23 GFR 04/13/2025 10/14/2024, 09/06, 08/19/2024, Additional history exists Depression Screening 07/07/2025 07/07/2024, 02/06/20 24 CKD HGB USE SMARTSET 84925 10/14/202510/14, 10/14/2024, 09/16/2024, Additional history exists DTap/Tdap [...] this encounter Medical Devices Implanted Type Area Surgical Product Sales Consultant Device Identifier Shelf Expiration Date Model / Serial / Lot Intraocular Lens Implanted:Qty: 1 on 01/12/2016 by Amari Loomis MD at [facility] Right: Eye 11/06/2018 MX60+11.0 / [id number] / [id number] documented as of this encounter Visit Diagnoses Diagnosis CLL (chronic lymphocytic leukemia) (HCC)- Primary Chronic lymphoid leukemia, without mention of having achieved remission documented in this encounter Advance Directives * Full Code (Latest Code Status on File) Date Activated Date Inactivated Comments 01/12/2016 9:49 AM 01/12/2016 3:56 PM This order ref lects the patients wishes and were consensually agreed upon. Care Teams Vamp Marker Relationship Specialty Start Date End Date Linda Baeza DO [address] [facility] [place] [address] PCP - General Family Medicine 09/11/22 documented as of this encounter
--- OUTSIDE RECORDS SUMMARY | 2024-12-05 15:18 | External Medical Summary | Summary of Care ---
Author Name Unknown Organization [facility] Address [address] [place] [address] Phone [phone] Care Team Providers Care Area Relief Pilot Name Role Phone Linda Baeza DO Primary Care Provider +1- [phone] Reason for Referral * Precert (Within 10 days (routine)) - Authorized Specialty Diagnoses / Procedures Referred By Soham joel Referred To Contact Radiology Diagnoses Pulmonary nodules Procedures CT CHEST WO CONTRAST Osmany Valenzuela MD [address] [place] [address] Phone: tel: fax: Referral ID Status Reason Start Date Expiration Date V isits Requested Visits Authorized [id number] Authorized 10/02/2024 999 999 Reason for Visit * Reason Onset Date Comments Test Results 10/02/2024 Unexpected or In determinate Result Encounter Details Date Type Department Care Team (Late st Contact Info) Description 10/02/2024 Telephone Laboratory, [place] [address] [place] [address] Osmany Valenzuela MD [address] [place] [address] Test Results (Unexpected or Indeterminate ... Allergies Active Allergy Reactions Criticality Noted Date Comments Meperidine Hcl 02/19/2019 Lamotrigine Other (Please comment) Medium 07/19/2021 Causes patient to fall. Rofecoxib 11/06/2004 rash &swelling in legs, stumbling (vioxx) documented as of this encounter (statuses as of 10/05/2024) Medications NATURAL SUPPLEMENTIndica tions:Per Pt: to prevent arthritis Take by mouth. Vinegar/Honey Daily 0 0 07/12/20 05 Active Probiotic Product (PROBIOTIC ACIDOPHILUS BIOBEADS) Capsule Take 1 Capsule by mouth in the morning. Active Multiple Vitamins-Mineral s (MULTIVITAMIN MEN 50+) TABS Take by mouth 1 Tablet daily . Active [place] 3 1000 MG Oral Capsule Take by mouth daily . Active Saline 0.65 % Nasal Solution Administer 1 [place] into nostril as needed for Congestion. Active [...] as of this encounter (statuses as of 10/05/2024) Active Problems Problem Noted Date Diagnosed Date [...] as of this encounter (statuses as of 10/05/2024) Resolved Problems Problem Noted Date Diagnosed Date [...] as of this encounter (statuses as of 10/05/2024) Immunizations Name Administration Dates Next Due COVID-19 mRNA, LNP-s, No Pre serve, 2-Dose Series ([employer]) 06/07/2021,12/14/2020,11/23/2020 COVID-19, LNP-s, No Preserve , William-sucrose, [...] No 09/08/2014 2:00 PM EST Rina Cooper M, TECH * Do you have serious [...] Telephone Encounter - Elizabeth Sotelo OSA - 10/05/2024 9:[address] result faxed to Dr. Martins. Pt will be contacted closer to CT due date to schedule. * Telephone Encounter - Linda Baeza DO - 10/03/2024 8:27 AM EST Patient also follows with pulmonology at [facility] with Dr Martins Please fax copy of [...] unexpected or indeterminate finding on Tano Rocha ([id number]) and asksthat you review the following report. [...] Client Service Rep [facility] documented in this encounter Plan of Treatment Upcoming Encounters Date Type Department Care Team (Late st Contact Info) Description 10/14/2024 10:00 AM EST Laboratory [facility] [place] [address] [address] [place] [phone] [address] [place] [address] 10/15/2024 9:00 AM EST Pharmacy Pharmacy Hematology Oncology [place] [address] [place] [address] [facility] [place], [facility] Hem/Onc [address] [place] [address] 10/15/2024 10:00 AM EST Hem/Onc Treatment Hematology/Oncology Treatment, [place] [address] [place] [address] Gemma, Chair 10 Hem Onc [address] [place], [place] [address] 01/07/2025 11:30 AM EDT Office Visit Hematology/Oncology [facility] [place] [address] [place], [place] [address] Carlos Pierre MD [address] [place], [place] [address] 02/11/2025 10:00 AM EDT Nurse Only Ancillary [address] [place] [address] [place], Nurse Annual Wellness Cold [address] [place] [address] 03/29/2025 10:30 AM EDT Office Visit Urology Ghada Fraser [address] [facility] [address] [place] [id number] Paul Ha Jr., MD [address] [place] [id number] 04/01/2025 11:00 AM EDT Office Visit Family Practice [place] [address] [place] [address] Linda Baeza DO [address] [place] [address] Scheduled Orders Name Type Priority Associated Diagnoses Orde r Schedule CT CHEST WO CONTRAST Medical Imaging Routine Pulmonary nodules Ordered: 10/02/2024 Health Maintenance Due Date Last Done Comments COVID-19 Vaccine ( season) 2024 06/10/2024, 02/07/2024, 07/11/2023, Additional history exists Albumin/Creatinine Ratio 11/27/2024 11/27/2023, 10/07 CKD PHOS USE SMARTSET 59627 11/27/202411/08, 10/24/2022, 04/23/2021 Adult Wellness Visit 02/05/2025 02/06/2024, 12/14/19 23 GFR 03/17/2025 09/16/2024, 08/07, 07/22/2024, Additional history exists Depression Screening 07/07/2025 07/07/2024, 02/06/20 24 CKD HGB USE SMARTSET 36105 09/16/202509/16, 09/16/2024, 08/19/2024, Additional history exists DTap/Tdap [...] this encounter Medical Devices Implanted Type Area Tissue Recovery Technician Device Identifier Shelf Expiration Date Model / Serial / Lot Intraocular Lens Implanted:Qty: 1 on 01/12/2016 by Amari Loomis MD at [facility] Right: Eye 11/06/2018 MX60+11.0 / [id number] / [id number] documented as of this encounter Visit Diagnoses Diagnosis Pulmonary nodules- Primary Other nonspecific abnormal finding of lung field documented in this encounter Advance Directives * Full Code (Latest Code Status on File) Date Activated Date Inactivated Comments 01/12/2016 9:49 AM 01/12/2016 3:56 PM This order ref lects the patients wishes and were consensually agreed upon. Care Teams Area Relief Pilot Relationship Specialty Start Date End Date Linda Baeza DO [address] [facility] [place] [address] PCP - General Family Medicine 09/11/22 documented as of this encounter
--- OUTSIDE RECORDS SUMMARY | 2024-12-05 15:18 | External Medical Summary | Summary of Care ---
Author Name Unknown Organization [facility] Address [address] [place] [address] Phone [phone] Care Team Providers Care Screen Printing Press Operator Name Role Phone BaezaJoellechava Sharma DO Primary Care Provider [phone]- [phone] Reason for Visit * Reason Onset Date Comments Imaging Records Request 10/06/2024 Encounter Details Date Type Department Care Team (Late Contact Info) Description 10/06/2024 Telephone Radiology Film File [address] [place] [address] Support, Imaging Radiology [address] [place] [address] Imaging Records Request Allergies Active Allergy Reactions Criticality Noted Date Comments Meperidine Hcl 02/19/2019 Lamotrigine Other (Please comment) Medium 07/19/2021 Causes patient to fall. Rofecoxib 11/06/2004 rash &swelling in legs, stumbling (vioxx) documented as of this encounter (statuses as of 10/06/2024) Medications NATURAL SUPPLEMENTIndica tions:Per Pt: to prevent arthritis Take by mouth. Vinegar/Honey Daily 0 0 07/12/20 05 Active Probiotic Product (PROBIOTIC ACIDOPHILUS BIOBEADS) Capsule Take 1 Capsule by mouth in the morning. Active Multiple Vitamins-Mineral s (MULTIVITAMIN MEN 50+) TABS Take by mouth 1 Tablet daily . Active [place] 3 1000 MG Oral Capsule Take by mouth daily . Active Saline 0.65 % Nasal Solution Administer 1 [place] into nostril as needed for Congestion. Active [...] as of this encounter (statuses as of 10/06/2024) Active Problems Problem Noted Date Diagnosed Date [...] as of this encounter (statuses as of 10/06/2024) Resolved Problems Problem Noted Date Diagnosed Date [...] as of this encounter (statuses as of 10/06/2024) Immunizations Name Administration Dates Next Due COVID-19 mRNA, LNP-s, No Pre serve, 2-Dose Series (MI Airline) 06/07/2021,12/14/2020,11/23/2020 COVID-19, LNP-s, No Preserve , William-sucrose, [...] encounter Miscellaneous Notes * Telephone Encounter - Kim Black OSA - 10/06/2024 11:09 AM EST [facility] Pulmonary department requesting 09-28-24 images be pushed through PACS. [place] Authorization to Release on file. [facility]. Associated report(s) not needed. documented in this encounter Plan of Treatment Upcoming Encounters Date Type Department Care Team (Late st Contact Info) Description 10/14/2024 10:00 AM EST Laboratory Laboratory [address], [place] [address] [facility] [place] [phone] [facility] [address] [facility] [place] [address] 10/15/2024 9:00 AM EST Pharmacy Pharmacy Hematology Oncology [facility] [address] [place] [address] [facility] [place] [facility] Hem/Onc [address] [place] [address] 10/15/2024 10:00 AM EST Hem/Onc Treatment Hematology/Oncology Treatment, [place] [address] [place] [address] Gemma, Chair 10 Hem Onc [place] [address] [place] [address] 01/07/2025 11:30 AM EDT Office Visit Hematology/Oncology Junior Menendez [place] [address] [facility] [place] [address] Carlos Pierre MD [address] [place] [address] 02/11/2025 10:00 AM EDT Nurse Only Ancillary [address] [place] [address] [place] [address] [place], Nurse Annual Wellness Cold [address] [place] [address] 03/29/2025 10:30 AM EDT Office Visit Urology Ghada Fraser [address] [place] [address] Paul Ha Jr., MD [address] [place] [id number] 04/01/2025 11:00 AM EDT Office Visit Family Practice [place] [address] [place] [address] Linda Baeza, [address] [place] [address] Health Maintenance Due Date Last Done Comments COVID-19 Vaccine ( season) 2024 06/10/2024, 02/07/2024, 07/11/2023, Additional history exists Albumin/Creatinine Ratio 11/27/2024 11/27/2023, 10/07 CKD PHOS USE SMARTSET 90196 11/27/202411/08, 10/24/2022, 04/23/2021 Adult Wellness Visit 02/05/2025 02/06/2024, 12/14/19 23 GFR 03/17/2025 09/16/2024, 08/07, 07/22/2024, Additional history exists Depression Screening 07/07/2025 07/07/2024, 02/06/20 24 CKD HGB USE SMARTSET 65903 09/16/202509/16, 09/16/2024, 08/19/2024, Additional history exists DTap/Tdap [...] this encounter Medical Devices Implanted Type Area Music Journalist Device Identifier Shelf Expiration Date Model / Serial / Lot Intraocular Lens Implanted:Qty: 1 on 01/12/2016 by Amari Loomis MD at OR [facility] Right: Eye 11/06/2018 MX60+11.0 / [id number] / [id number] documented as of this encounter Advance Directives * Full Code (Latest Code Status on File) Date Activated Date Inactivated Comments 01/12/2016 9:49 AM 01/12/2016 3:56 PM This order ref lects the patients wishes and were consensually agreed upon. Care Teams Screen Printing Press Operator Relationship Specialty Start Date End Date Linda Baeza DO [address] [facility] [place] [address] PCP - General Family Medicine 09/11/22 documented as of this encounter
--- OUTSIDE RECORDS SUMMARY | 2024-12-05 15:18 | External Medical Summary | Summary of Care ---
Author Name Unknown Organization [facility] Address [address] [place] [address] Phone [phone] Care Team Providers Care Grocery Stocker Name Role Phone Linda Baeza DO Primary Care Provider +1- [phone] Reason for Visit * Reason Comments IV Therapy IVIG * Episode Based Medications (Routine) - Authorized Specialty Diagnoses / Procedures Referred By Soham joel Referred To Contact Diagnoses CLL (chronic lymphocytic leukemia) (HCC) Hypogammaglobulinemia (HCC) Procedures ND INJ IVIG PRIVIGEN 500 MG Carlos Pierre MD [address] [place] [address] Phone: tel: fax: Hematology/Oncology Treatment, [place] DEPT CLOSED - 08/20/23 [address] [place] [address] Phone: tel: fax: Referral ID Status Reason Start Date Expiration Date V isits Requested Visits Authorized [id number] Authorized 05/14/2023 04/21/2025 [id number] Encounter Details Date Type Department Care Team (Latest Contact Info) Description 09/18/2024 10:00 AM EST Hem/Onc Treatment Hematology/Oncology Treatment, [place] [address] [place] [address] CLL [...] by mouth 1 Tablet daily . Active [place] 3 1000 MG Oral Capsule Take by mouth daily . Active Saline 0.65 % Nasal Solution Administer 1 [place] into nostril as needed for Congestion. Active [...] mRNA, LNP-s, No Pre serve, 2-Dose Series (bMobilized) 06/07/2021,12/14/2020,11/23/2020 COVID-19, LNP-s, No Preserve , William-sucrose, Ages 12+ (bMobilized) 02/08/2022 COVID-19, MRNA-LNP, 24-25, P F, 50 [...] AM EST Laboratory Laboratory [address] [place] [phone] [place] [address] 11/12/2024 9:00 AM EST Pharmacy Pharmacy Hematology Oncology [facility] [address] [place] [address] [facility] [place] [facility] Hem/Onc [address] [place] [address] 11/12/2024 10:00 AM EST Hem/Onc Treatment Hematology/Oncology Treatment, [place] [address] [place] [phone] Gemma, Chair 10 Hem Onc [facility] [address] [facility] [place] [address] 01/07/2025 11:30 AM EDT Office Visit Hematology/Oncology [facility] [place] [address] [facility] [place] [address] Carlos Pierre MD [address] [facility] [place] [address] 02/11/2025 10:00 AM EDT Nurse Only Ancillary [address] [place] [address] [place], Nurse Annual Wellness Cold [address] [place] [address] 03/29/2025 10:30 AM EDT Office Visit Urology Ghada Fraser [address] [place] [address] Paul Ha Jr., MD [address] [place] [id number] 04/01/2025 11:00 AM EDT Office Visit Family Practice [address], [place] [address] [place] [address] Linda Baeza DO [address] [place] [address] Health Maintenance Due Date Last Done Comments COVID-19 Vaccine ( season) 2024 06/10/2024, 02/07/2024, 07/11/2023, Additional history exists Albumin/Creatinine Ratio 11/27/2024 11/27/2023, 10/07 CKD PHOS USE SMARTSET 26400 11/27/202411/08, 10/24/2022, 04/23/2021 Adult Wellness Visit 02/05/2025 02/06/2024, 12/14/19 23 GFR 04/13/2025 10/14/2024, 09/06, 08/19/2024, Additional history exists Depression Screening 07/07/2025 07/07/2024, 02/06/20 24 CKD HGB USE SMARTSET 14061 10/14/202510/14, 10/14/2024, 09/16/2024, Additional history exists DTap/Tdap [...] this encounter Medical Devices Implanted Type Area Refueling Ramp Supervisor Device Identifier Shelf Expiration Date Model / Serial / Lot Intraocular Lens Implanted:Qty: 1 on 01/12/2016 by Amari Loomis MD at OR [facility] Right: Eye 11/06/2018 MX60+11.0 / [id number] / [id number] documented as of this encounter Visit Diagnoses [...] and were consensually agreed upon. Care Teams Grocery Stocker Relationship Specialty Start Date End Date Linda Baeza DO [address] [facility] [place] [address] PCP - General Family Medicine 09/11/22 documented as of this encounter
--- OUTSIDE RECORDS SUMMARY | 2024-12-05 15:19 | External Medical Summary | Summary of Care ---
Author Name Unknown Organization [facility] Address [address] [place] [address] Phone [phone] Care Team Providers Care Color Repairer Name Role Phone Linda Baeza DO Primary Care Provider +1- [phone] Reason for Visit * Reason Onset Date Comments Test Results 10/02/2024 Unexpected or In determinate Result Encounter Details Date Type Department Care Team (Late st Contact Info) Description 10/02/2024 Telephone Laboratory, [place] [address] [place] [address] Osmany Valenzuela MD [address] [place] [address] Test Results (Unexpected or Indeterminate ... Allergies [...] by mouth 1 Tablet daily . Active [place] 3 1000 MG Oral Capsule Take by mouth daily . Active Saline 0.65 % Nasal Solution Administer 1 [place] into nostril as needed for Congestion. Active [...] mg before bedtime. 60 Tablet 11 08/03/20 Active Finasteride 5 MG Oral Tablet (Proscar) [...] mRNA, LNP-s, No Pre serve, 2-Dose Series (Applika) 06/07/2021,12/14/2020,11/23/2020 COVID-19, LNP-s, No Preserve , William-sucrose, [...] No 07/07/2024 Does the household have a [facility] source of income? (Household - for [...] Assessment Author No 09/08/2014 2:00 PM EST Allison RinaAYAKA Jensen * Because of a physical, mental, or emotional condition, do you have difficulty doing errands alone such as visiting a doctors office or shopping? (15 years old or older) Answer Date of Assessment Author No 09/08/2014 2:00 PM EST Allison RinaAYAKA Jensen documented as of this encounter Mental Status * Because of a physical, mental, or emotional condition, do you have serious difficulty concentrating, remembering, or making decisions? (5 years old or older) Answer Entry Date Author No 09/08/2014 2:00 PM EST Allison RinaAYAKA Dinh documented in this encounter Miscellaneous Notes * Telephone Encounter - Qasim Fry OSA - 10/02/2024 6:52 AM EST Hello- The radiologist discovered an unexpected or indeterminate finding on Tano Rocha ([id number]) and asksthat you review the following report. [...] Knapp Client Service Rep [facility] documented in this encounter Plan of Treatment Upcoming Encounters Date Type Department Care Team (Late st Contact Info) Description 10/14/2024 10:00 AM EST Laboratory [place] [address] [address] [place] [phone] Jonatan Schneider [place] [address] [place] [address] 10/15/2024 9:00 AM EST Pharmacy Pharmacy Hematology Oncology [facility] [address] [place] [address] [facility] [place] [facility] Hem/Onc [address] [place] [address] 10/15/2024 10:00 AM EST Hem/Onc Treatment Hematology/Oncology Treatment, [place] [address] [place] [address] [place], Chair 10 Hem Onc [facility] [address] [place] [address] 01/07/2025 11:30 AM EDT Office Visit Hematology/Oncology [facility] [place] [address] [place] [address] Carlos Pierre MD 200 [facility] [place] [address] 02/11/2025 10:00 AM EDT Nurse Only Ancillary [address] [place] [address] [place], Nurse Annual Wellness Cold [address] [place] [address] 03/29/2025 10:30 AM EDT Office Visit Urology Ghada Fraser [address] [facility] [address] [place] [address] Paul Ha Jr., MD [address] [place] [address] 04/01/2025 11:00 AM EDT Office Visit Family Practice [place] [address] [place] [address] Linda Baeza, [address] [place] [address] Health Maintenance Due Date Last Done Comments COVID-19 Vaccine ( season) 2024 06/10/2024, 02/07/2024, 07/11/2023, Additional history exists Albumin/Creatinine Ratio 11/27/2024 11/27/2023, 10/07 CKD PHOS USE SMARTSET 58440 11/27/2024 02/10/2023, 10/24/2022, 04/23/2021 Adult Wellness Visit 02/05/2025 02/06/2024, 12/14/19 23 GFR 03/17/2025 09/16/2024, 08/07, 07/22/2024, Additional history exists Depression Screening 07/07/2025 07/07/2024, 02/06/20 24 CKD HGB USE SMARTSET 37195 09/16/202509/16, 09/16/2024, 08/19/2024, Additional history exists DTap/Tdap [...] this encounter Medical Devices Implanted Type Area Rollway Worker Device Identifier Shelf Expiration Date Model / Serial / Lot Intraocular Lens Implanted:Qty: 1 on 01/12/2016 by Amari Loomis MD at OR [facility] Right: Eye 11/06/2018 MX60+11.0 / [id number] / [id number] documented as of this encounter Advance Directives * Full Code (Latest Code Status on File) Date Activated Date Inactivated Comments 01/12/2016 9:49 AM 01/12/2016 3:56 PM This order ref lects the patients wishes and were consensually agreed upon. Care Teams Color Repairer Relationship Specialty Start Date End Date Linda Baeza DO [address] [facility] [place] [address] PCP - General Family Medicine 09/11/22 documented as of this encounter
--- OUTSIDE RECORDS SUMMARY | 2024-12-05 15:19 | External Medical Summary | Summary of Care ---
Author Name Unknown Organization [facility] Address [address] [place] [address] Phone [phone] Care Team Providers Care Table Cover Folder Name Role Phone Linda Baeza DO Primary Care Provider +1- [phone] Reason for Visit * Reason Comments IV Therapy IVIG * Episode Based Medications (Routine) - Authorized Specialty Diagnoses / Procedures Referred By Soham joel Referred To Contact Diagnoses CLL (chronic lymphocytic leukemia) (HCC) Hypogammaglobulinemia (HCC) Procedures [place] INJ IVIG PRIVIGEN 500 MG Carlos Pierre MD [address] [place] [address] Phone: tel: fax: Hematology/Oncology Treatment, [place] DEPT CLOSED - 08/20/23 [address] [place] [address] Phone: tel: fax: Referral ID Status Reason Start Date Expiration Date V isits Requested Visits Authorized [id number] Authorized 05/14/2023 04/21/2025 [id number] Encounter Details Date Type Department Care Team (Latest Contact Info) Description 09/18/2024 10:00 AM EST Hem/Onc Treatment Hematology/Oncology Treatment, [place] [address] [place] [address] CLL (chronic lymphocytic leukemia) (HCC)*; Hypogammaglobulinem ia (HCC) Allergies Active Allergy Reactions Criticality Noted Date Comments Meperidine Hcl 02/19/2019 Lamotrigine Other (Please comment) Medium 07/19/2021 Causes patient to fall. Rofecoxib 11/06/2004 rash &swelling in legs, stumbling (vioxx) documented as of this encounter (statuses as of 09/18/2024) Medications NATURAL SUPPLEMENTIndica tions:Per Pt: to prevent [...] Saline 0.65 % Nasal Solution Administer 1 [place] into nostril as needed for Congestion. Active [...] as of this encounter (statuses as of 09/18/2024) Active Problems Problem Noted Date Diagnosed Date [...] as of this encounter (statuses as of 09/18/2024) Resolved Problems Problem Noted Date Diagnosed Date [...] as of this encounter (statuses as of 09/18/2024) Immunizations Name Administration Dates Next Due COVID-19 mRNA, LNP-s, No Pre serve, 2-Dose Series ([employer] IT) 06/07/2021,12/14/2020,11/23/2020 COVID-19, LNP-s, No Preserve , William-sucrose, Ages 12+ (DesignFace IT) 02/08/2022 COVID-19, MRNA-LNP, 24-25, P F, 50 [...] Care Team (Late st Contact Info) Description 09/28/2024 9:45 AM EST Imaging Radiology [facility] 1[address] [facility] [address] [facility] [address] 09/28/2024 10:00 AM EST Cardiac Studies Cardiac Studies, [address] [place] [address] 10/14/2024 10:00 AM EST Laboratory Laboratory [place] [address] [place] [phone] [place], Lab [address] [facility] [place] [address] 10/15/2024 9:00 AM EST Pharmacy Pharmacy Hematology Oncology [place] [address] [place] [address] [facility] [place] Hem/Onc [address] [place] [address] 10/15/2024 10:00 AM EST Hem/Onc Treatment Hematology/Oncology Treatment, [place] [address] [place] [address] Gemma, Chair 10 Hem Onc [address] [place] [address] 01/07/2025 11:30 AM EDT Office Visit Hematology/Oncology [place] [address] [place] [address] Carlos Pierre MD 200 [place] [address] 02/11/2025 10:00 AM EDT Nurse Only Ancillary [place] [address] [address] [place] [address] [place], Nurse Annual Wellness Cold [address] [place] [address] 03/29/2025 10:30 AM EDT Office Visit Urology Ghada Fraser [address] [place] [address] Paul Ha Jr., MD [address] [place] [id number] 04/01/2025 11:00 AM EDT Office Visit Family Practice [place] [address] [address] [place], [place] [address] Linda Baeza, [address] [place] [address] Health Maintenance Due Date Last Done Comments COVID-19 Vaccine ( season) 2024 06/10/2024, 02/07/2024, 07/11/2023, Additional history exists Albumin/Creatinine Ratio 11/27/2024 11/27/2023, 10/07 CKD PHOS USE SMARTSET 33704 11/27/2024/10/2023, 10/24/2022, 04/23/2021 Adult Wellness Visit 02/05/2025 02/06/2024, 12/14/19 23 GFR 03/17/2025 09/16/2024, 08/07, 07/22/2024, Additional history exists Depression Screening 07/07/2025 07/07/2024, 02/06/20 24 CKD HGB USE SMARTSET 50734 09/16/202509/16, 09/16/2024, 08/19/2024, Additional history exists DTap/Tdap Vaccines (4 - Td or Tdap) 03/10/2028 03/10/2018, 03/20/2013, 10/31/2011 Pneumococcal Vaccine: 65+ Years Completed 08/08/2015, 03/20/2013 [...] this encounter Medical Devices Implanted Type Area Agricultural Produce Commission Agent Device Identifier Shelf Expiration Date Model / Serial / Lot Intraocular Lens Implanted:Qty: 1 on 01/12/2016 by Amari Loomis MD at OR [facility] Right: Eye 11/06/2018 MX60+11.0 / [id number] / [id number] documented as of this encounter Visit Diagnoses [...] IVIG, Starting on Sat09/18/24 at 1130, Until Discontinued, Maximum of 4 grams (4000 mg) per day.Indications:CLL (chronic lymphocytic leukemia) (HCC),Hypogammaglobulinemia (HCC) Given 09/18/2024 10:34 AM EST 650 mg diphenhydrAMINE (Benadryl) cap 25 mg 25 mg, Oral, ONCE PRN If previous infusion reaction with IVIG, Starting on Sat09/18/24 at 1130, Until DiscontinuedIndications:CLL (chronic lymphocytic leukemia) (HCC),Hypogammaglobulinemia (HCC) Given 09/18/2024 10:34 AM EST 25 mg diphenhydrAMINE (Benadryl) inj 50 mg 50 mg, IV Push, ONCE PRN Other, Hypersensitivity Reaction, Starting on Sat09/18/24 at 1019, Until 09/19/24 at 1018, For 24 hoursIndications:CLL (chronic lymphocytic leukemia) (HCC),Hypogammaglobulinemia (HCC) EPINEPHrine 1 MG/ML inj 0.3 mg 0.3 mg, Intramuscular, ONCE PRN Other, Hypersensitivity Reaction or Anaphylaxis, Starting on Sat09/18/24 at 1019, Until 09/19/24 at 1018, For 24 hoursIndications:CLL (chronic lymphocytic leukemia) (HCC),Hypogammaglobulinemia (HCC) hEParin 100 UNIT/ML Lock Flush inj 500 Units 500 Units (5 mL), IV Lock, PRN Other, IV Flush, Starting on Sat09/18/24 at 1019, Until 09/19/24 at 1018, For 24 hours, Do not flush if lock, PICC, or central line not in place; IV infusing or unable to flush.Indications:CLL (chronic lymphocytic leukemia) (HCC),Hypogammaglobulinemia (HCC) Hydrocortisone Sod Suc (PF) (Solu-Cortef) inj 100 mg 100 mg, IV Push, ONCE PRN Other, Hypersensitivity Reaction, Starting on Sat09/18/24 at 1019, Until 09/19/24 at 1018, For 24 hoursIndications:CLL (chronic lymphocytic leukemia) (HCC),Hypogammaglobulinemia (HCC) NSS infusion 500 mL, Intravenous, at 100 mL/hr Administer over 10 Hours, CONTINUOUS, Starting on Sat09/18/24 at 1130, Until Sat09/18/24 at 2129Indications:CLL (chronic lymphocytic leukemia) (HCC),Hypogammaglobulinemia (HCC) Start Infusion 09/18/2024 10:22 AM EST 500 mL 100 mL/hr sodium chloride 0.9 % flush central line 10 mL 10 mL, IV Push, PRN Other, IV Flush, Starting on Sat09/18/24 at 1019, Until 09/19/24 at 1018, For 24 hours, Do not flush if [...] Change 09/18/2024 11:10 AM EST 44 mL/hr documented in this encounter Advance Directives * Full Code (Latest Code Status on File) Date Activated Date Inactivated Comments 01/12/2016 9:49 AM 01/12/2016 3:56 PM This order ref lects the patients wishes and were consensually agreed upon. Care Teams Table Cover Folder Relationship Specialty Start Date End Date Linda Baeza DO [address] [facility] [place] [id number] PCP - General Family Medicine 09/11/22 documented as of this encounter
--- OUTSIDE RECORDS SUMMARY | 2024-12-05 15:19 | External Medical Summary | Summary of Care ---
Author Name Unknown Organization [facility] Address [address] [place] [address] Phone [phone] Care Team Providers Care Automation Machine Operator Name Role Phone Linda Baeza DO Primary Care Provider +1- [phone] Reason for Visit * Reason Comments IV Therapy IVIG * Episode Based Medications (Routine) - Authorized Specialty Diagnoses / Procedures Referred By Soham joel Referred To Contact Diagnoses CLL (chronic lymphocytic leukemia) (HCC) Hypogammaglobulinemia (HCC) Procedures SC INJ IVIG PRIVIGEN 500 MG Carlos Pierre MD [address] [place] [address] Phone: tel: fax: Hematology/Oncology Treatment, [place] DEPT CLOSED - 08/20/23 [address] [place] [address] Phone: tel: fax: Referral ID Status Reason Start Date Expiration Date V isits Requested Visits Authorized [id number] Authorized 05/14/2023 04/21/2025 [id number] Encounter Details Date Type Department Care Team (Latest Contact Info) Description 08/20/2024 10:30 AM EST Hem/Onc Treatment Hematology/Oncology Treatment, [place] [address] [place] [address] Gemma, Chair 7 Hem Onc Scenery [address] [place] [address] CLL (chronic lymphocytic leukemia) (HCC)*; Hypogammaglobulinem ia ([facility]) Allergies Active Allergy Reactions Criticality Noted Date Comments Meperidine Hcl 02/19/2019 Lamotrigine Other (Please comment) Medium 07/19/2021 Causes patient to fall. Rofecoxib 11/06/2004 rash &swelling in legs, stumbling (vioxx) documented as of this encounter (statuses as of 09/14/2024) Medications NATURAL SUPPLEMENTIndica tions:Per Pt: to prevent arthritis Take by mouth. Vinegar/Honey Daily 0 0 07/12/20 05 Active Probiotic Product (PROBIOTIC ACIDOPHILUS BIOBEADS) Capsule Take 1 Capsule by mouth in the morning. Active Multiple Vitamins-Mineral s (MULTIVITAMIN MEN 50+) TABS Take by mouth 1 Tablet daily . Active [place] 3 1000 MG Oral Capsule Take by mouth daily . Active Saline 0.65 % Nasal Solution Administer 1 [place] into nostril as needed for Congestion. Active [...] Tablet (Acalabrutinib Maleate)Indicati ons:CLL (chronic lymphocytic leukemia) ([facility]) Take 100 mg by mouth in the morning and 100 mg before bedtime. 60 Tablet 11 08/03/20 24 Active Finasteride 5 MG Oral Tablet (Proscar) Take 1 Tablet by mouth in the morning. 90 Tablet 08/10/20 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HCC),Bronchiectasis with acute exacerbation (HCC) 2.5 mg NEBULIZER ONCE PRN 08/21/2023 08/20/2024 Ended documented as of this encounter (statuses as of 09/14/2024) Active Problems Problem Noted Date Diagnosed Date [...] as of this encounter (statuses as of 09/14/2024) Resolved Problems Problem Noted Date Diagnosed Date [...] as of this encounter (statuses as of 09/14/2024) Immunizations Name Administration Dates Next Due COVID-19 [...] Sign Reading Time Taken Comments Blood Pressure 142/67 08/20/2024 10:25 AM EST Pulse 56 08/20/2024 10:25 AM EST Temperature 36.5 C (97.7 F) 08/20/2024 1 0:25 AM EST Respiratory Rate 18 08/20/2024 10:2 5 AM EST Oxygen Saturation 99% 08/20/2024 10: 25 AM EST Inhaled Oxygen Concentration - - Weight 70.2 kg (154 lb 12.8 oz) 024 10:25 AM EST Height - - Body Mass Index 22.21 06/17/2024 2:40 PM EDT documented in this encounter Functional Status * [...] 2:00 PM EST Allison RinaAYAKA Dinh documented as of this encounter Mental Status * Because of a physical, mental, or emotional condition, do you have serious difficulty concentrating, remembering, or making decisions? (5 years old or older) Answer Entry Date Author No 09/08/2014 2:00 PM EST Allison Rina SeAYAKA documented in this encounter Nursing Notes * Micki Bertrand RN - 08/20/2024 12:52 PM EST Patient tolerated treatment without issue. PIV removed intact. Goals: Patient will remain free from injury. Possible barriers to meeting goals: Ambulating with IV pole Stability of the patient: Moderately stable - low risk of patient condition declining or worsening Summary regarding today's goals: Met: Patient remained free from harm. Pt discharged in stable condition. * Micki Bertrand RN - 08/20/2024 11:08 AM EST Chair 6 Patient here for treatment. Patient offers no [...] Care Team (Late st Contact Info) Description 09/16/2024 10:00 AM EST Laboratory Laboratory [address] [place] [address] [place] [address] 09/17/2024 9:00 AM EST Pharmacy Pharmacy Hematology Oncology [address] [address] [facility] [place]c [address] [facility] [place] [address] 09/17/2024 10:15 AM EST Hem/Onc Treatment Hematology/Oncology Treatment, [place] [address] [place] [phone] Gemma, Chair 10 Hem Onc Scenery [address] [place] [address] 09/28/2024 9:45 AM EST Imaging [facility] [address] [place] [address] 09/28/2024 10:00 AM EST Cardiac Studies Cardiac Studies, [facility] [address] [facility] [place] [address] 10/14/2024 10:00 AM EST Laboratory Laboratory [address] [place] [phone] Jennie, [address] [address] 10/15/2024 10:00 AM EST Hem/Onc Treatment Hematology/Oncology Treatment, [place] [address] [place] [phone] Gemma, Chair 10 Hem Onc Scenery [address] [place] [address] 01/07/2025 11:30 AM EDT Office Visit Hematology/Oncology [facility] Gemma [place] [address] [place] [address] Carlos Pierre MD [address] [place] [address] 02/11/2025 10:00 AM EDT Nurse Only Ancillary [address] [place] [address] [place], Nurse Annual Wellness Cold [address] [place] [address] 03/29/2025 10:30 AM EDT Office Visit Urology Ghada Fraser [address] [place] [address] Paul Ha Jr., MD [address] [place] [address] 04/01/2025 11:00 AM EDT Office Visit Family Practice [address], [place] [address] [place] [address] Linda Baeza DO [address] [place] [address] Health Maintenance Due Date Last Done Comments COVID-19 Vaccine ( season) 2024 06/10/2024, 02/07/2024, 07/11/2023, Additional history exists Albumin/Creatinine Ratio 11/27/2024 11/27/2023, 10/07 CKD PHOS USE SMARTSET 95360 11/27/202411/08, 10/24/2022, 04/23/2021 Adult Wellness Visit 02/05/2025 02/06/2024, 12/14/19 23 GFR 02/16/2025 08/19/2024, 07/07, 06/24/2024, Additional history exists Depression Screening 07/07/2025 07/07/2024, 02/06/20 24 CKD HGB USE SMARTSET 70853 08/19/202508/19, 08/19/2024, 07/22/2024, Additional history exists DTap/Tdap Vaccines (4 - [...] this encounter Medical Devices Implanted Type Area Tax Appraiser Device Identifier Shelf Expiration Date Model / Serial / Lot Intraocular Lens Implanted:Qty: 1 on 01/12/2016 by Amari Loomis MD at OR [facility] Right: Eye 11/06/2018 MX60+11.0 / [id number] / [id number] documented as of this encounter Visit Diagnoses [...] infusion reaction with IVIG, Starting on Andreina 08/20/24 at 1145, Until Andreina 08/20/24 at 1426, Maximum of 4 grams (4000 mg) per day.Indications:CLL (chronic lymphocytic leukemia) (HCC),Hypogammaglobulinemia (HCC) Given 08/20/2024 10:47 AM EST 650 mg diphenhydrAMINE (Benadryl) cap 25 mg 25 mg, Oral, ONCE PRN If previous infusion reaction with IVIG, Starting on Andreina 08/20/24 at 1145, Until Andreina 08/20/24 at 1426Indications:CLL (chronic lymphocytic leukemia) (HCC),Hypogammaglobulinemia (HCC) Given 08/20/2024 10:47 AM EST 25 mg Immune Globulin Human- IVIG 10% (Privigen) IV 20 g 20 g, IV Piggyback, ONCE, 1 dose, On Andreina 08/20/24 at 1315, PRIVIGEN infusion instructions Infusion Rate VTBI 0.005 [...] (chronic lymphocytic leukemia) (HCC),Hypogammaglobulinemia (HCC) Rate Change 08/20/2024 11:59 AM EST 350 mL/hr Start Infusion 08/20/2024 11:56 AM EST 20 g 175 mL/h r Immune Globulin Human-IVIG 10% (Privigen) IV 10 g 10 g, IV Piggyback, ONCE, 1 dose, On Andreina 08/20/24 at 1215, PRIVIGEN infusion instructions Infusion Rate VTBI 0.005 [...] (chronic lymphocytic leukemia) (HCC),Hypogammaglobulinemia (HCC) Rate Change 08/20/2024 11:42 AM EST 175 mL/hr Rate Change 08/20/2024 11:27 AM EST 88 mL/hr Rate Change 08/20/2024 11:12 AM EST 44 mL/hr NSS infusion 500 mL, Intravenous, at 100 mL/hr Administer over 10 Hours, CONTINUOUS, Starting on Andreina 08/20/24 at 1145, Until Andreina 08/20/24 at 1426Indications:CLL (chronic lymphocytic leukemia) (HCC),Hypogammaglobulinemia (HCC) Start Infusion 08/20/2024 10:40 AM EST 500 mL 100 mL/hr documented in this encounter Advance Directives * Full Code (Latest Code Status on File) Date Activated Date Inactivated Comments 01/12/2016 9:49 AM 01/12/2016 3:56 PM This order ref lects the patients wishes and were consensually agreed upon. Care Teams Automation Machine Operator Relationship Specialty Start Date End Date Linda Baeza DO [address] [facility] [place] [address] PCP - General Family Medicine 09/11/22 documented as of this encounter
--- OUTSIDE RECORDS SUMMARY | 2024-12-05 15:19 | External Medical Summary | Summary of Care ---
Author Name Unknown Organization [facility] Address [address] [place] [address] Phone [phone] Care Team Providers Care Enterprise Architect Name Role Phone Linda Baeza DO Primary Care Provider +1- [phone] Reason for Visit * Reason Onset Date Comments Appointment 08/26/2024 Precert rec'd/Ec ho, CT chest Encounter Details Date Type Department Care Team (Late st Contact Info) Description 08/26/2024 Telephone Family Practice [facility] [place] [address] [place] [address] Linda Baeza DO [address] [place] [address] Appointment (Precert rec'd/Echo, CT chest) Allergies Active Allergy Reactions Criticality Noted Date Comments Meperidine Hcl 02/19/2019 Lamotrigine Other (Please comment) Medium 07/19/2021 Causes patient to fall. Rofecoxib 11/06/2004 rash &swelling in legs, stumbling (vioxx) documented as of this encounter (statuses as of 09/01/2024) Medications NATURAL SUPPLEMENTIndica tions:Per Pt: to prevent arthritis Take by mouth. Vinegar/Honey Daily 0 0 07/12/20 05 Active Probiotic Product (PROBIOTIC ACIDOPHILUS BIOBEADS) Capsule Take 1 Capsule by mouth in the morning. Active Multiple Vitamins-Mineral s (MULTIVITAMIN MEN 50+) TABS Take by mouth 1 Tablet daily . Active [place] 3 1000 MG Oral Capsule Take by mouth daily . Active Saline 0.65 % Nasal Solution Administer 1 [place] into nostril as needed for Congestion. Active [...] as of this encounter (statuses as of 09/01/2024) Active Problems Problem Noted Date Diagnosed Date [...] as of this encounter (statuses as of 09/01/2024) Resolved Problems Problem Noted Date Diagnosed Date [...] as of this encounter (statuses as of 09/01/2024) Immunizations Name Administration Dates Next Due COVID-19 mRNA, LNP-s, No Pre serve, 2-Dose Series ([employer]) 06/07/2021,12/14/2020,11/23/2020 COVID-19, LNP-s, No Preserve , William-sucrose, [...] Telephone Encounter - Elizabeth Sotelo OSA - 09/01/2024 9:51 AM EST Echo/CT order/demo/ins/auth info faxed to Scheduling. They will contact pt directly. * Telephone Encounter - Elizabeth Sotelo OSA - 08/28/2024 8:34 AM EST Echo-precert not needed. Chest CT-still awaiting auth * Telephone Encounter - Elizabeth Sotelo OSA - 08/26/2024 4:04 PM EST Precert notified to check on auth for CT and echo prior to scheduling at [facility]. * Telephone Encounter - Alina Workman OSA - 08/26/2024 3:04 PM EST Pt would like CT and Echo scheduled at if approved through insurance if not pt would like a phone call and to schedule at [facility], please assist with scheduling. documented in this encounter Plan of Treatment Upcoming Encounters Date Type Department Care Team (Late st Contact Info) Description 09/16/2024 10:00 AM EST Laboratory Laboratory [place] [address] [place] [phone] [address] [place] [address] 09/17/2024 9:00 AM EST Pharmacy Pharmacy Hematology Oncology [facility] [address] [place] [address] [facility] Hem/Onc [address] [place] [address] 09/17/2024 10:15 AM EST Hem/Onc Treatment Hematology/Oncology Treatment, [place] [address] [facility] [address] Gemma, Chair 10 Hem Onc [facility] [address] [place] [address] [place] [address] 09/28/2024 9:45 AM EST Imaging Radiology [facility] 1st [address] [place] [address] 09/28/2024 10:00 AM EST Cardiac Studies Cardiac Studies, [address] [address] 10/14/2024 10:00 AM EST Laboratory Laboratory [place] [address] [place] [phone] [address] [place] [address] 10/15/2024 10:00 AM EST Hem/Onc Treatment Hematology/Oncology Treatment, [place] [address] [facility] [phone] Gemma, Chair 10 Hem Onc Scenery [address] [facility] [place] [address] 01/07/2025 11:30 AM EDT Office Visit Hematology/Oncology Junior Menendez [place] [address] [facility] [place] [phone] Carlos Pierre MD [address] [facility] [place] [address] 02/11/2025 10:00 AM EDT Nurse Only Ancillary [address] [place] [address] [place], Nurse Annual Wellness Cold [address] [place] [address] 03/29/2025 10:30 AM EDT Office Visit Urology Ghada Fraser [address] [place] [address] Paul Ha Jr., MD [address] [place] [address] 04/01/2025 11:00 AM EDT Office Visit Family Practice [address] [place] [address] Linda Baeza DO [address] [place] [address] Health Maintenance Due Date Last Done Comments COVID-19 Vaccine ( season) 2024 06/10/2024, 02/07/2024, 07/11/2023, Additional history exists Albumin/Creatinine Ratio 11/27/2024 11/27/2023, 10/07 CKD PHOS USE SMARTSET 91862 11/27/2024 [address]10/2023, 10/24/2022, 04/23/2021 Adult Wellness Visit 02/05/2025 02/06/2024, 12/14/19 23 GFR 02/16/2025 08/19/2024, 07/07, 06/24/2024, Additional history exists Depression Screening 07/07/2025 07/07/2024, 02/06/20 24 CKD HGB USE SMARTSET 05872 08/19/202508/19, 08/19/2024, 07/22/2024, Additional history exists DTap/Tdap [...] this encounter Medical Devices Implanted Type Area Mogul Operator Device Identifier Shelf Expiration Date Model / Serial / Lot Intraocular Lens Implanted:Qty: 1 on 01/12/2016 by Amari Loomis MD at [facility] Right: Eye 11/06/2018 [id number] / [id number] / [id number] documented as of this encounter Advance Directives * Full Code (Latest Code Status on File) Date Activated Date Inactivated Comments 01/12/2016 9:49 AM 01/12/2016 3:56 PM This order ref lects the patients wishes and were consensually agreed upon. Care Teams Enterprise Architect Relationship Specialty Start Date End Date Linda Baeza DO [address] [facility] [place] [address] PCP - General Family Medicine 09/11/22 documented as of this encounter
--- OUTSIDE RECORDS SUMMARY | 2024-12-05 15:19 | External Medical Summary ---
Author Name Unknown Address Unknown Organization K01:[facility] - [address] [place] [address] Laboratory Report Ordering Provider Test Date Status KASSIDY RADFORD 09/16/2024 09:59:40 Final Observation Date Value Abnormality Reference (Units ) Status IgG 09/16/2024 09:59:40 418 [id number] ( mg/dL) Final IgA 09/16/2024 09:59:40 51 Below low normal 70- 400 (mg/dL) Final IgM 09/16/2024 09:59:40 <5 Below low normal 40- 230 (mg/dL) Final Performing Location [facility] - [address] [place] [address]
--- OUTSIDE RECORDS SUMMARY | 2024-12-05 15:19 | External Medical Summary | Summary of Care ---
Author Name Unknown Organization [facility] Address [address] [place] [address] Phone [phone] Care Team Providers Care Manager Valuation Name Role Phone Linda Baeza DO Primary Care Provider +1- [phone] Reason for Visit * Reason Comments Medication Management Encounter Details Date Type Department Care Team (Late st Contact Info) Description 09/17/2024 9:00 AM [facility] Pharmacy Pharmacy Hematology Oncology [facility] [address] [place] [address] [facility], [facility] Clinic Hem/Onc [address] [place] [address] CLL (chronic lymphocytic leukemia) ([facility])* Allergies Active Allergy Reactions Criticality Noted Date Comments Meperidine Hcl 02/19/2019 Lamotrigine Other (Please comment) Medium 07/19/2021 Causes patient to fall. Rofecoxib 11/06/2004 rash &swelling in legs, stumbling (vioxx) documented as of this encounter (statuses as of 09/17/2024) Medications NATURAL SUPPLEMENTIndica tions:Per Pt: to prevent arthritis Take by mouth. Vinegar/Honey Daily 0 0 07/12/20 05 Active Probiotic Product (PROBIOTIC ACIDOPHILUS BIOBEADS) Capsule Take 1 Capsule by mouth in the morning. Active Multiple Vitamins-Mineral s (MULTIVITAMIN MEN 50+) TABS Take by mouth 1 Tablet daily . Active [place] 3 1000 MG Oral Capsule Take by mouth daily . Active Saline 0.65 % Nasal Solution Administer 1 [place] into nostril as needed for Congestion. Active [...] as of this encounter (statuses as of 09/17/2024) Active Problems Problem Noted Date Diagnosed Date [...] as of this encounter (statuses as of 09/17/2024) Resolved Problems Problem Noted Date Diagnosed Date [...] as of this encounter (statuses as of 09/17/2024) Immunizations Name Administration Dates Next Due COVID-19 mRNA, LNP-s, No Pre serve, 2-Dose Series (Nveloped) 06/07/2021,12/14/2020,11/23/2020 COVID-19, LNP-s, No Preserve , William-sucrose, [...] No 07/07/2024 Does the household have a [facility] source of income? (Household - for ages [...] encounter Progress Notes * Jovanna Calderon, [facility] - 09/17/2024 1:20 PM EST MEDICATION THERAPY MANAGEMENT ACALABRUTINIB TREATMENT PROGRESS NOTE Tano Aj [id number] Patient Phone Numbers : Caitlin Specialty pharmacy: [facility] Voice Communication: Left message requesting return call to assess toleration to therapy Treatment: Medication: Acalabrutinib (Calquence) Indication: CLL Dose: 100 mg BID ( 06/14/22) Administration: +/- food Start Date: 04/30/22 Primary Pet Walker/Oncologist: Dr. Ihsan Pierre Supportive Care Meds: None [...] in conjunction with IVIG infusions Admitted to [facility] 06/27/23-06/30/23 for viral pneumonia Admitted to [facility] 08/10/23-08/15/23 for respiratory distress Per TE 05/18/24, pt without acalabrutinib 05/14/24-05/17/24 due to traveling and experiencing withdrawal symptoms Per CM encounter 05/28/24, symptoms have since resolved Per PCP OV 08/26/24, pt reports L-sided chest pain and will undergo CT scan 09/28/24 Changes to medication list since last visit? No Assessment and Plan: WBC/ALC elevated but stable ANC WNL Hgb low but improving PLT declining to grade 1 thrombocytopenia Per PI, no dose adjustment recommended for PLT > 50K with bleeding Will monitor closely BUN elevated Encouraged to increase fluid intake Will monitor closely Ca2+ slightly elevated Advised to limit dairy products Will monitor closely All other labs stable Continue current therapy and monthly labs Assessment of compliance: N/A Assessment of adverse effects attributed to drug therapy: N/A Dose adjustment needed based on lab or adverse drug reaction? No Follow up: 4 weeks Jovanna Calderon, PharmD, BCOP Clinical Pharmacist, [facility] Oral Chemotherapy [facility] 09/17/2024, 1:28 PM Pertinent Labs: Latest Reference Range & Units 07/22/24 10:06 08/19/24 09:56 09/16/24 09:59 WBC 4.00 - 10.80 K/uL 12.79 (H) 13.88 (H) 15.61 (H) RBC 4.50 - 5.25 M/uL 3.80 3.81 4.02 HGB 14.0 - 16.8 g/dL 12.4 (L) 12.3 (L) 13.2 (L) HCT 40.0 - 48.4 % 39.3 (L) 39.0 (L) 41.2 MCV 82.0 - 99.5 fL 103.4 102.4 102.5 MCH 27.0 - 34.0 pg 32.6 32.3 32.8 MCHC 32.0 - 36.0 g/dL 31.6 31.5 32.0 RDW 11.5 - 15.5 % 15.7 15.0 14.9 PLT 140 - 400 K/uL 172 152 137 (L) MPV 6.6 - 11.1 fL 11.6 11.7 11.2 CBC WITH WBC DIFFERENTIAL Rpt ! Rpt ! Rpt ! Absolute Neutrophils 1.80 - 7.70 K/uL 3.07 3.89 2.97 Absolute Lymphocytes 1.00 - 4.80 K/uL 9.21 (H) 7.91 (H) 11.86 (H) Latest Reference Range & Units 07/22/24 10:06 08/19/24 09:56 12 09:59 BUN 6 - 20 mg/dL 27 (H) 26 (H) 30 (H) CREATININE 0.6 - 1.2 mg/dL 1.1 1.1 1.1 EGFR >=60 mL/min 68 69 65 Latest Reference Range & Units 07/22/24 10:06 08/19/24 09:56 09/16/24 09:59 CALCIUM 8.4 - 10.2 mg/dL 10.2 10.2 10.3 (H) Latest Reference Range & Units 07/22/24 10:06 08/19/24 09:56 12 09:59 Albumin 3.8 - 5.0 g/dL 4.2 4.2 4.4 AST 10 - 50 U/L 23 23 21 ALT 10 - 50 U/L 17 15 15 Alkaline Phosphatase 35 - 130 U/L 80 69 79 Bilirubin, Total <=1.2 mg/dL 0.2 0.3 0.3 Latest Reference Range & Units 07/22/24 10:06 08/19/24 09:56 09/16/24 09:59 IgA 70 - 400 mg/dL 55 (L) 50 (L) 51 (L) IgG 700 - 1,600 mg/dL 849 862 860 IgM 40 - 230 mg/dL <5 (L) <5 (L) <5 (L) Time Spent on Encounter: 6 - 10 minutes Encounter Group: Hematology Encounter Interventions Item Category: Oral Chemotherapy Acalabrutinib Problem/Rationale: Safety: Needs additional monitoring - Medication Requires monitoring Pharmacist Intervention(s): Lab monitoring and Non-pharmacological intervention provided Magnitude of Intervention: Monitoring with direction (Level 1) documented in this encounter Plan of Treatment Upcoming Encounters Date Type Department Care Team (Late st Contact Info) Description 09/18/2024 10:00 AM EST Hem/Onc Treatment Hematology/Oncology Treatment, [place] [address] [place] [address] 09/28/2024 9:45 AM EST Imaging Radiology [facility] 1st [facility], [place] [address] [place] [address] 09/28/2024 10:00 AM EST Cardiac Studies Cardiac Studies, [facility] [address] [facility] [place] [address] 10/14/2024 10:00 AM EST Laboratory Laboratory [address], [place] [address] [place] [phone] [place], Lab [address] [place] [address] 10/15/2024 9:00 AM EST Pharmacy Pharmacy Hematology Oncology [facility] [address] [place] [address] [facility], [facility] Clinic Hem/Onc [address] [place] [address] 10/15/2024 10:00 AM EST Hem/Onc Treatment Hematology/Oncology Treatment, [place] [address] [place] [address] Gemma, Chair 10 Hem Onc [facility] [address] [facility] [place] [address] 01/07/2025 11:30 AM EDT Office Visit Hematology/Oncology [facility] [address] [place] [phone] Carlos Pierre MD [address] [facility] [place] [address] 02/11/2025 10:00 AM EDT Nurse Only Ancillary [address], [place] [address] [place] [address] [place], Nurse Annual Wellness [place] [address] [place] [address] 03/29/2025 10:30 AM EDT Office Visit Urology Ghada Fraser [address] [place] [address] Paul Ha Jr., MD [address] [place] [address] 04/01/2025 11:00 AM EDT Office Visit [facility] [address], [place] [address] [place] [address] Linda Baeza DO [address] [place] [id number] Health Maintenance Due Date Last Done Comments COVID-19 Vaccine ( season) 2024 06/10/2024, 02/07/2024, 07/11/2023, Additional history exists Albumin/Creatinine Ratio 11/27/2024 11/27/2023, 10/07 CKD PHOS USE SMARTSET 71070 11/27/202411/08, 10/24/2022, 04/23/2021 Adult Wellness Visit 02/05/2025 02/06/2024, 12/14/19 23 GFR 03/17/2025 09/16/2024, 08/07, 07/22/2024, Additional history exists Depression Screening 07/07/2025 07/07/2024, 02/06/20 24 CKD HGB USE SMARTSET 72614 09/16/202509/16, 09/16/2024, 08/19/2024, Additional history exists DTap/Tdap [...] this encounter Medical Devices Implanted Type Area Crusher Wet Ground Mica Device Identifier Shelf Expiration Date Model / Serial / Lot Intraocular Lens Implanted:Qty: 1 on 01/12/2016 by Amari Loomis MD at [facility] Right: Eye 11/06/2018 MX60+11.0 / [id number] / [id number] documented as of this encounter Visit Diagnoses Diagnosis CLL (chronic lymphocytic leukemia) (HCC)- Primary Chronic lymphoid leukemia, without mention of having achieved remission documented in this encounter Advance Directives * Full Code (Latest Code Status on File) Date Activated Date Inactivated Comments 01/12/2016 9:49 AM 01/12/2016 3:56 PM This order ref lects the patients wishes and were consensually agreed upon. Care Teams Manager Valuation Relationship Specialty Start Date End Date Linda Baeza DO [address] [facility] [place] [phone] PCP - General Family Medicine 09/11/22 documented as of this encounter
--- OUTSIDE RECORDS SUMMARY | 2024-12-05 15:19 | External Medical Summary | Summary of Care ---
Author Name Unknown Organization [facility] Address [address] [place] [address] Phone [phone] Care Team Providers Care Tungsten Refiner Name Role Phone Linda Baeza DO Primary Care Provider +1- [phone] Reason for Visit * Reason Comments Outpatient Testing Encounter Details Date Type Department Care Team (Late st Contact Info) Description 09/16/2024 10:00 AM EST Laboratory Laboratory [facility] [address] [place] [address] [facility] [address] [place] [address] CLL (chronic lymphocytic leukemia) ([facility]) Allergies Active Allergy Reactions Criticality Noted Date Comments Meperidine Hcl 02/19/2019 Lamotrigine Other (Please comment) Medium 07/19/2021 Causes patient to fall. Rofecoxib 11/06/2004 rash &swelling in legs, stumbling (vioxx) documented as of this encounter (statuses as of 09/16/2024) Medications NATURAL SUPPLEMENTIndica tions:Per Pt: to prevent arthritis Take by mouth. Vinegar/Honey Daily 0 0 07/12/20 05 Active Probiotic Product (PROBIOTIC ACIDOPHILUS BIOBEADS) Capsule Take 1 Capsule by mouth in the morning. Active Multiple Vitamins-Mineral s (MULTIVITAMIN MEN 50+) TABS Take by mouth 1 Tablet daily . Active [place] 3 1000 MG Oral Capsule Take by mouth daily . Active Saline 0.65 % Nasal Solution Administer 1 [place] into nostril as needed for Congestion. Active [...] as of this encounter (statuses as of 09/16/2024) Active Problems Problem Noted Date Diagnosed Date [...] as of this encounter (statuses as of 09/16/2024) Resolved Problems Problem Noted Date Diagnosed Date [...] as of this encounter (statuses as of 09/16/2024) Immunizations Name Administration Dates Next Due COVID-19 mRNA, LNP-s, No Pre serve, 2-Dose Series ([employer]) 06/07/2021,12/14/2020,11/23/2020 COVID-19, LNP-s, No Preserve , William-sucrose, [...] No 07/07/2024 Does the household have a [facility] source of income? (Household - for [...] st Contact Info) Description 09/17/2024 9:00 AM EST Pharmacy Pharmacy Hematology Oncology [place] [address] [place] [address] [facility], [facility] Clinic Hem/Onc [facility] [place] [address] 09/18/2024 10:00 AM EST Hem/Onc Treatment Hematology/Oncology Treatment, [address] [place] [phone] 09/28/2024 9:45 AM EST Imaging Radiology [facility] [address] [place] [address] 09/28/2024 10:00 AM EST Cardiac Studies [facility] Studies[facility] [address] [facility] [address] 10/14/2024 10:00 AM EST Laboratory Laboratory [address], [place] [address] [place] [phone] [address] [place] [address] 10/15/2024 10:00 AM EST Hem/Onc Treatment Hematology/Oncology Treatment, [address] [place] [phone] Gemma, Chair 10 Hem Onc [address] [place] [address] 01/07/2025 11:30 AM EDT Office Visit Hematology/Oncology [facility] [place] [address] [facility] [place], [place] [phone] Carlos Pierre MD [address] [facility] [place], [place] [address] 02/11/2025 10:00 AM EDT Nurse Only Ancillary [address], [place] [address] [place] [address] [place], Nurse Annual Wellness [address] [place] [address] 03/29/2025 10:30 AM EDT Office Visit Urology Ghada Fraser [address] [facility] [address] [place] [address] Paul Ha Jr., MD 27 [place] [address] 04/01/2025 11:00 AM EDT Office Visit Family Practice [address], [place] [address] [place] [address] Linda Baeza DO [address] [place] [address] Pending Results Name Type Priority Associated Diagnoses Date /Time IMMUNOGLOBULIN QUANTITATIVE Lab STAT CLL (chronic lymphocytic leukemia) ([facility]) 09/16/2024 9:59 AM EST CBC WITH WBC DIFFERENTIAL Lab STAT CLL (chronic lymphocytic leukemia) ([facility]) 09/16/2024 9:59 AM EST COMPREHENSIVE METABOLIC PANEL Lab STAT CLL (chronic lymphocytic leukemia) ([facility]) 09/16/2024 9:59 AM EST CBC Lab STAT CLL (chronic lymphocytic leukemia) ([facility]) 09/16/2024 9:59 AM EST DIFFERENTIAL, AUTOMATED Lab STAT CLL (chronic lymphocytic leukemia) ([facility]) 09/16/2024 9:59 AM EST Health Maintenance Due Date Last Done Comments COVID-19 Vaccine ( season) 2024 06/10/2024, 02/07/2024, 07/11/2023, Additional history exists Albumin/Creatinine Ratio 11/27/2024 11/27/2023, 10/07 CKD PHOS USE SMARTSET 48205 11/27/2024 02/10/2023, 10/24/2022, 04/23/2021 Adult Wellness Visit 02/05/2025 02/06/2024, 12/14/19 23 GFR 02/16/2025 08/19/2024, 07/07, 06/24/2024, Additional history exists Depression Screening 07/07/2025 07/07/2024, 02/06/20 24 CKD HGB USE SMARTSET 33873 08/19/202508/19, 08/19/2024, 07/22/2024, Additional history exists DTap/Tdap [...] this encounter Medical Devices Implanted Type Area Spray Foam Installer Device Identifier Shelf Expiration Date Model / Serial / Lot Intraocular Lens Implanted:Qty: 1 on 01/12/2016 by Amari Loomis MD at [facility] Right: Eye 11/06/2018 MX60+11.0 / [id number] / [id number] documented as of this encounter Visit Diagnoses Diagnosis CLL (chronic lymphocytic leukemia) (HCC) Chronic lymphoid leukemia, without mention of having achieved remission documented in this encounter Advance Directives * Full Code (Latest Code Status on File) Date Activated Date Inactivated Comments 01/12/2016 9:49 AM 01/12/2016 3:56 PM This order ref lects the patients wishes and were consensually agreed upon. Care Teams Tungsten Refiner Relationship Specialty Start Date End Date Linda Baeza DO [address] [facility] [place] [phone] PCP - General Family Medicine 09/11/22 documented as of this encounter
--- OUTSIDE RECORDS SUMMARY | 2024-12-05 15:19 | External Medical Summary | Summary of Care ---
Author Name Unknown Organization [facility] Address [address] [place] [address] Phone [phone] Care Team Providers Care Ammonia Technician Name Role Phone Linda Baeza DO Primary Care Provider +1- [phone] Reason for Visit * Reason Comments IV Therapy IVIG * Episode Based Medications (Routine) - Authorized Specialty Diagnoses / Procedures Referred By Soham joel Referred To Contact Diagnoses CLL (chronic lymphocytic leukemia) (HCC) Hypogammaglobulinemia (HCC) Procedures ND INJ IVIG PRIVIGEN 500 MG Carlos Pierre MD [address] [place] [address] Phone: tel: fax: Hematology/Oncology Treatment, [place] DEPT CLOSED - 08/20/23 [address] [place] [address] Phone: tel: fax: Referral ID Status Reason Start Date Expiration Date V isits Requested Visits Authorized [id number] Authorized 05/14/2023 04/21/2025 [id number] Encounter Details Date Type Department Care Team (Latest Contact Info) Description 09/18/2024 10:00 AM EST Hem/Onc Treatment Hematology/Oncology Treatment, [place] [address] [place] [address] CLL (chronic lymphocytic leukemia) (HCC)*; Hypogammaglobulinem ia (HCC) Allergies Active Allergy Reactions Criticality Noted Date Comments Meperidine Hcl 02/19/2019 Lamotrigine Other (Please comment) Medium 07/19/2021 Causes patient to fall. Rofecoxib 11/06/2004 rash &swelling in legs, stumbling (vioxx) documented as of this encounter (statuses as of 09/21/2024) Medications NATURAL SUPPLEMENTIndica tions:Per Pt: to prevent arthritis Take by mouth. Vinegar/Honey Daily 0 0 07/12/20 05 Active Probiotic Product (PROBIOTIC ACIDOPHILUS BIOBEADS) Capsule Take 1 Capsule by mouth in the morning. Active Multiple Vitamins-Mineral s (MULTIVITAMIN MEN 50+) TABS Take by mouth 1 Tablet daily . Active [place] 3 1000 MG Oral Capsule Take by mouth daily . Active Saline 0.65 % Nasal Solution Administer 1 [place] into nostril as needed for Congestion. Active [...] as of this encounter (statuses as of 09/21/2024) Active Problems Problem Noted Date Diagnosed Date [...] as of this encounter (statuses as of 09/21/2024) Resolved Problems Problem Noted Date Diagnosed Date [...] as of this encounter (statuses as of 09/21/2024) Immunizations Name Administration Dates Next Due COVID-19 mRNA, LNP-s, No Pre serve, 2-Dose Series ([employer]) 06/07/2021,12/14/2020,11/23/2020 COVID-19, LNP-s, No Preserve , William-sucrose, Ages 12+ ([employer]) 02/08/2022 COVID-19, MRNA-LNP, 24-25, P F, 50 [...] Assessment Author No 09/08/2014 2:00 PM EST Rnia Cooper TECH * Do you have difficulty [...] Description 09/28/2024 9:45 AM EST Imaging Radiology [facility] [address] [facility] [address] 09/28/2024 10:00 AM EST Cardiac Studies Cardiac Studies, [address] [place] [address] 10/14/2024 10:00 AM EST Laboratory [facility] [place] [address] [place] [phone] [place], [address] [facility] [place] [address] 10/15/2024 9:00 AM EST Pharmacy Pharmacy Hematology Oncology [place] [address] [place] [address] [facility], [facility] Hem/Onc [address] [place] [address] 10/15/2024 10:00 AM EST Hem/Onc Treatment Hematology/Oncology Treatment, [place] [address] [place] [address] Gemma, Chair 10 Hem Onc [address] [place] [address] 01/07/2025 11:30 AM EDT Office Visit Hematology/Oncology [place] [address] [place] [address] Carlos Pierre MD 200 [place] [address] 02/11/2025 10:00 AM EDT Nurse Only Ancillary [place] [address] [address] [place] [address] [place], Nurse Annual Wellness [place] [address] [place] [address] 03/29/2025 10:30 AM EDT Office Visit Urology Ghada Fraser [address] [place] [address] Paul Ha Jr., MD 27 [place] [id number] 04/01/2025 11:00 AM EDT Office Visit Family Practice [place] [address] [address] [place], [place] [address] Linda Baeza, [address] [place] [address] Health Maintenance Due Date Last Done Comments COVID-19 Vaccine ( season) 2024 06/10/2024, 02/07/2024, 07/11/2023, Additional history exists Albumin/Creatinine Ratio 11/27/2024 11/27/2023, 10/07 CKD PHOS USE SMARTSET 49502 11/27/2024/10/2023, 10/24/2022, 04/23/2021 Adult Wellness Visit 02/05/2025 02/06/2024, 12/14/19 23 GFR 03/17/2025 09/16/2024, 08/07, 07/22/2024, Additional history exists Depression Screening 07/07/2025 07/07/2024, 02/06/20 24 CKD HGB USE SMARTSET 45145 09/16/202509/16, 09/16/2024, 08/19/2024, Additional history exists DTap/Tdap [...] this encounter Medical Devices Implanted Type Area Muff Winder Device Identifier Shelf Expiration Date Model / Serial / Lot Intraocular Lens Implanted:Qty: 1 on 01/12/2016 by Amari Loomis MD at OR [facility] Right: Eye 11/06/2018 MX60+11.0 / [id number] / [id number] documented as of this encounter Visit Diagnoses [...] and were consensually agreed upon. Care Teams Ammonia Technician Relationship Specialty Start Date End Date Linda Baeza DO [address] [facility] [place] [address] PCP - General Family Medicine 09/11/22 documented as of this encounter
--- OUTSIDE RECORDS SUMMARY | 2024-12-05 15:19 | External Medical Summary | Summary of Care ---
Author Name Unknown Organization [facility] Address [address] [place] [address] Phone [phone] Care Team Providers Care Laundry Bag Punch Operator Name Role Phone Linda Baeza DO Primary Care Provider [phone]- [phone] Reason for Visit * Reason Comments IV Therapy IVIG * Episode Based Medications (Routine) - Authorized Specialty Diagnoses / Procedures Referred By Soham joel Referred To Contact Diagnoses CLL (chronic lymphocytic leukemia) (HCC) Hypogammaglobulinemia (HCC) Procedures VA INJ IVIG PRIVIGEN 500 MG Carlos Pierre MD [address] [place] [address] Phone: tel: fax: Hematology/Oncology Treatment, [place] DEPT CLOSED - 08/20/23 [address] [place] [address] Phone: tel: fax: Referral ID Status Reason Start Date Expiration Date V isits Requested Visits Authorized [id number] Authorized 05/14/2023 04/21/2025 999 [id number] Encounter Details Date Type Department Care Team (Latest Contact Info) Description 08/20/2024 10:30 AM EST Hem/Onc Treatment Hematology/Oncology Treatment, [place] [address] [place] [address] Gemma, Chair 7 Hem Onc Scenery [address] [place] [address] CLL (chronic lymphocytic leukemia) (HCC)*; Hypogammaglobulinem ia ([facility]) Allergies Active Allergy Reactions Criticality [...] by mouth 1 Tablet daily . Active Hampton 3 1000 MG Oral Capsule Take by mouth daily . Active Saline 0.65 % Nasal Solution Administer 1 [place] into nostril as needed for Congestion. Active [...] Tablet (Acalabrutinib Maleate)Indicati ons:CLL (chronic lymphocytic leukemia) ([facility]) Take 100 mg by mouth [...] AM EST Laboratory Laboratory [address] [place] [address] [place] [address] 09/17/2024 9:00 AM EST Pharmacy Pharmacy Hematology Oncology [address] [address] [facility], [facility] Hem[facility]Onc [address] [facility] [place] [address] 09/17/2024 10:15 AM EST Hem/Onc Treatment Hematology/Oncology Treatment, [place] [address] [place] [phone] Gemma, Chair 10 Hem Onc Scenery [address] [place] [address] 09/28/2024 9:45 AM EST Imaging [facility] [address] [place] [address] 09/28/2024 10:00 AM EST Cardiac Studies Card[facility] Studies, [facility] [address] [facility] [address] 10/14/2024 10:00 AM EST Laboratory Laboratory [address] [place] [phone] Jennie, [address] [place] [address] 10/15/2024 10:00 AM EST Hem/Onc Treatment Hematology/Oncology Treatment, [place] [address] [place] [phone] Gemma, Chair 10 Hem Onc Scenery [address] [place] [address] 01/07/2025 11:30 AM EDT Office Visit Hematology/Oncology [facility]ma [place] [address] [place] [address] Carlos Pierre MD [address] [place] [address] 02/11/2025 10:00 AM EDT Nurse Only Ancillary [address] [place] [address] [place], Nurse Annual Wellness Cold [address] [place] [address] 03/29/2025 10:30 AM EDT Office Visit Urology Ghada Fraser [address] [place] [address] Paul Ha Jr., MD [address] [place] [address] 04/01/2025 11:00 AM EDT Office Visit Family Practice [address], [place] [address] [place] [address] Linda Baeza DO [address] [place] [address] Health Maintenance Due Date Last Done Comments COVID-19 Vaccine ( season) 2024 06/10/2024, 02/07/2024, 07/11/2023, Additional history exists Albumin/Creatinine Ratio 11/27/2024 11/27/2023, 10/07 CKD PHOS USE SMARTSET 93978 11/27/202411/08, 10/24/2022, 04/23/2021 Adult Wellness Visit 02/05/2025 02/06/2024, 12/14/19 23 GFR 02/16/2025 08/19/2024, 07/07, 06/24/2024, Additional history exists Depression Screening 07/07/2025 07/07/2024, 02/06/20 24 CKD HGB USE SMARTSET 45800 08/19/202508/19, 08/19/2024, 07/22/2024, Additional history exists DTap/Tdap [...] this encounter Medical Devices Implanted Type Area Cosmetic Sales Advisor Device Identifier Shelf Expiration Date Model / Serial / Lot Intraocular Lens Implanted:Qty: 1 on 01/12/2016 by Amari Loomis MD at [facility] Right: Eye 11/06/2018 MX60+11.0 / [id number] / [id number] documented as of this encounter Visit Diagnoses [...] and were consensually agreed upon. Care Teams Laundry Bag Punch Operator Relationship Specialty Start Date End Date Linda Baeza DO [address] [facility] [place] [address] PCP - General Family Medicine 09/11/22 documented as of this encounter
--- OUTSIDE RECORDS SUMMARY | 2024-12-05 15:19 | External Medical Summary ---
Author Name Unknown Address Unknown Organization K01:[facility] [facility] [place] [address] [facility] [address] Laboratory Report Ordering Provider Test Date Status KASSIDY RADFORD 09/16/2024 09:59:40 Final Observation Date Value Abnormality Reference (Units ) Status SYNC LEUKOCYTES IN BLOOD BY AUTOMATED COUNT 09/16/2024 09:59:40 15.61 Above high normal 4.00-10.80 (K/uL) Final Neutrophils/100 leukocytes in Blood by Manual count 09/16/2024 09:59:40 19.0 Below low normal 40.0-75.0 (%) Final Lymphocytes/100 leukocytes in Blood by Manual count 09/16/2024 09:59:40 76.0 Above high normal 18.0-42.0 (%) Final Monocytes/100 leukocytes in Blood by Manual count 09/16/2024 09:59:40 3.0 1.0-11.0 (%) Final Basophils/100 leukocytes in Blood by Manual count 09/16/2024 09:59:40 1.0 0.0-2.0 (%) Final Metamyelocytes/100 leukocytes in Blood by Manual count 09/16/2024 09:59:40 1.0 Above high normal <=0.0 (%) Final Neutrophils [#/volume] in Blood by Manual count 09/16/2024 09:59:40 2.97 1.80-7.70 (K/uL) Final Lymphocytes [#/volume] in Blood by Manual count 09/16/2024 09:59:40 11.86 Above high normal 1.00-4.80 (K/uL) Final Monocytes [#/volume] in Blood by Manual count 09/16/2024 09:59:40 0.47 0.00-1.10 (K/uL) Final Basophils [#/volume] in Blood by Manual count 09/16/2024 09:59:40 0.16 0.00-0.20 (K/uL) Final Metamyelocytes [#/volume] in Blood by Manual count 09/16/2024 09:59:40 0.16 Above high normal <=0.00 (K/uL) Final Smudge cells [Presence] in Blood by Light microscopy 09/16/2024 09:59:40 Present Abnormal None Seen Final Performing Location [facility] [place] [address] [facility] [address]
--- OUTSIDE RECORDS SUMMARY | 2024-12-05 15:19 | External Medical Summary | Summary of Care ---
Author Name Unknown Organization [facility] Address [address] [place] [address] Phone [phone] Care Team Providers Care Paper Production Engineer Name Role Phone Linda Baeza DO Primary Care Provider [phone]- [phone] Reason for Visit * Reason Onset Date Comments Test Results 10/02/2024 Unexpected or In determinate Result Encounter Details Date Type Department Care Team (Late st Contact Info) Description 10/02/2024 Telephone Laboratory, [place] [address] [place] [address] Osmany Valenzuela MD [address] [place] [address] Test Results (Unexpected or Indeterminate ... Allergies [...] by mouth 1 Tablet daily . Active Ronald 3 1000 MG Oral Capsule Take by mouth daily . Active Saline 0.65 % Nasal Solution Administer 1 [place] into nostril as needed for Congestion. Active [...] mRNA, LNP-s, No Pre serve, 2-Dose Series ([employer]) 06/07/2021,12/14/2020,11/23/2020 COVID-19, LNP-s, No Preserve , William-sucrose, [...] No 07/07/2024 Does the household have a [facility] source of income? (Household - for [...] unexpected or indeterminate finding on Tano Rocha ([id number]) and asksthat you review the following report. [...] you, ANASTACIA Knapp Client Service Rep [facility] documented in this encounter Plan of Treatment Upcoming Encounters Date Type Department Care Team (Late st Contact Info) Description 10/14/2024 10:00 AM EST Laboratory [facility] [address] [place] [phone] Jonatan Schneider [address] [place] [address] 10/15/2024 9:00 AM EST Pharmacy Pharmacy Hematology Oncology [facility] [address] [place] [address] [facility], [facility] Hem/Onc [address] [place] [address] 10/15/2024 10:00 AM EST Hem/Onc Treatment Hematology/Oncology Treatment, [place] [address] [place] [address] Park, Chair 10 Hem Onc [facility] [address] [place] [address] 01/07/2025 11:30 AM EDT Office Visit Hematology/Oncology [facility] [place] [address] [place] [address] Carlos Pierre MD [address] [facility] [place] [address] 02/11/2025 10:00 AM EDT Nurse Only Ancillary [address] [place] [address] [place], Nurse Annual Wellness Cold [address] [place] [address] 03/29/2025 10:30 AM EDT Office Visit Urology Ghdaa Fraser [address] [facility] [address] [place] [address] Paul Ha Jr., MD [address] [place] [address] 04/01/2025 11:00 AM EDT Office Visit Family Practice [place] [address] [place] [address] Linda Baeza, [address] [place] [address] Health Maintenance Due Date Last Done Comments COVID-19 Vaccine ( season) 2024 06/10/2024, 02/07/2024, 07/11/2023, Additional history exists Albumin/Creatinine Ratio 11/27/2024 11/27/2023, 10/07 CKD PHOS USE SMARTSET 11328 11/27/2024 02/10/2023, 10/24/2022, 04/23/2021 Adult Wellness Visit 02/05/2025 02/06/2024, 12/14/19 23 GFR 03/17/2025 09/16/2024, 08/07, 07/22/2024, Additional history exists Depression Screening 07/07/2025 07/07/2024, 02/06/20 24 CKD HGB USE SMARTSET 45048 09/16/202509/16, 09/16/2024, 08/19/2024, Additional history exists DTap/Tdap [...] encounter Medical Devices Implanted Type Area Family Partner Device Identifier Shelf Expiration Date Model / Serial / Lot Intraocular Lens Implanted:Qty: 1 on 01/12/2016 by Amari Loomis MD at OR [facility] Right: Eye 11/06/2018 [id number]+11.0 / [id number] / [id number] documented as of this encounter Advance Directives * Full Code (Latest Code Status on File) Date Activated Date Inactivated Comments 01/12/2016 9:49 AM 01/12/2016 3:56 PM This order ref lects the patients wishes and were consensually agreed upon. Care Teams Paper Production Engineer Relationship Specialty Start Date End Date Linda Baeza DO [address] [facility] [place] [address] PCP - General Family Medicine 09/11/22 documented as of this encounter
--- OUTSIDE RECORDS SUMMARY | 2024-12-05 15:19 | External Medical Summary | Summary of Care ---
Author Name Unknown Organization [facility] Address [address] [place] [address] Phone [phone] Care Team Providers Care Dump Attendant Name Role Phone Linda Baeza DO Primary Care Provider [phone] Reason for Referral * Precert (Diagnostic Medical) (Within 10 days (routine)) - Authorized Specialty Diagnoses / Procedures Referred By Contac t Referred To Contact Cardiac Studies Diagnoses Left-sided chest pain Procedures ECHO, COMPLETE (2D), TRANS-THORACIC Osmany Valenzuela MD [address] [place] [address] Phone: tel: fax: Referral ID Status Reason Start Date Expiration Date V isits Requested Visits Authorized [id number] Authorized Precert 08/26/2024 999 999 * Precert (Within 10 days (routine)) - Authorized Specialty Diagnoses / Procedures Referred By Contac t Referred To Contact Radiology Diagnoses Left-sided chest pain Procedures CT CHEST WO CONTRAST Osmany Valenzuela MD [address] [place] [address] Phone: tel: fax: Referral ID Status Reason Start Date Expiration Date V isits Requested Visits Authorized [id number] Authorized 08/26/2024 999 999 Reason for Visit * Reason Comments Acute Tano Rocha is a 79 year old male who presents today for evaluation of left sided chest pain. He experiencing symptoms when he lays on his left side. He will intermittently have some discomfort with deep breathing. He is able to do 1000 steps. He does a morning routine with push-ups and going up and down steps without difficulty. He symptoms have been ongoing for several months. Encounter Details Date Type Department Care Team (Late st Contact Info) Description 08/26/2024 2:20 PM EST Office Visit [facility] [address] [place] [address] Osmany Valenzuela MD [address] [place] [address] Left-sided chest pain* Allergies Active Allergy Reactions Criticality Noted Date Comments Meperidine Hcl 02/19/2019 Lamotrigine Other (Please comment) Medium 07/19/2021 Causes patient to fall. Rofecoxib 11/06/2004 rash &swelling in legs, stumbling (vioxx) documented as of this encounter (statuses as of 08/26/2024) Medications NATURAL SUPPLEMENTIndica tions:Per Pt: to prevent arthritis Take by mouth. Vinegar/Honey Daily 0 0 07/12/20 05 Active Probiotic Product (PROBIOTIC ACIDOPHILUS BIOBEADS) Capsule Take 1 Capsule by mouth in the morning. Active Multiple Vitamins-Mineral s (MULTIVITAMIN MEN 50+) TABS Take by mouth 1 Tablet daily . Active Chantilly 3 1000 MG Oral Capsule Take by mouth daily . Active Saline 0.65 % Nasal Solution Administer 1 [place] into nostril as needed for Congestion. Active [...] as of this encounter (statuses as of 08/26/2024) Active Problems Problem Noted Date Diagnosed Date [...] as of this encounter (statuses as of 08/26/2024) Resolved Problems Problem Noted Date Diagnosed Date [...] as of this encounter (statuses as of 08/26/2024) Immunizations Name Administration Dates Next Due COVID-19 [...] Sign Reading Time Taken Comments Blood Pressure 122/60 08/26/2024 2:11 PM EST Pulse 60 08/26/2024 2:11 PM EST Temperature 36.1 C (97 F) 08/26/2024 2:11 PM EST Respiratory Rate 20 08/26/2024 2:11 PM EST Oxygen Saturation 98% 08/26/2024 2:11 PM EST Inhaled Oxygen Concentration - - Weight 70 kg (154 lb 6.4 oz) 08/26/2024 2:11 PM EST Height 177.8 cm (5' 10") 08/26/2024 2:11 PM EST Body Mass Index 22.15 08/26/2024 2:11 PM EST documented in this [...] documented in this encounter Progress Notes * Osmany Valenzuela MD - 08/26/2024 2:16 PM EST Subjective Tano Rocha is a 79 year old male. Chief Complaint Patient presents with Acute Tano Rocha is a 79 year old male who presents today for evaluation of left sided chest pain. He experiencing symptoms when he lays on his left side. He will intermittently have some discomfort with deep breathing. He is able to do 1000 steps. He does a morning routine with push-ups and going up and down steps without difficulty. He symptoms have been ongoing for several months. HPI: This is a 79 year old male who presents for an acute visit. From TE: Patient states that the only issue that he has is on his left side, when he lays on it at night, some times it is hard for him to take a deep breath, when he does he rates the pain a 3-4 / 10. He states that it only happens when he is lying on his side. He has been able to continue to do push ups, and exercise, and does not have the pain then. He reports that he broke a rib on the right side a few months ago, he states that that happened when someone gave him a hug, but the left side was not injured. He reports a multiple month history of L-sided chest pain. He can do 40 push ups without any issuesdaily; he hikes the 1000 steps about once a week. However, he has L chest pain while lying down; ithappens pretty much every time. It is not associated with exertion, radiation of the pain, or neck pain. He denies any overt CP, chest heaviness, SOB/[place]. He denies any injury or trauma to the area. He will intermittently have pain with very deep breaths. He has a history of CLL and gets plasma once a month and skin melanoma and BCC. He also sees pulmonlogy for his asthma/COPD overlap and h/o TB.He also has a history of multiple bilateral PNAs. PMH: Current Outpatient Medications Medication Sig Dispense Refill NATURAL SUPPLEMENT Take by mouth. Vinegar/Honey Daily 0 0 Probiotic Product (PROBIOTIC ACIDOPHILUS BIOBEADS) Capsule Take 1 Capsule by mouth in the morning. Multiple Vitamins-Minerals (MULTIVITAMIN MEN 50+) TABS Take by mouth 1 Tablet daily . Chantilly 3 1000 MG Oral Capsule Take by mouth daily . Saline 0.65 % Nasal Solution Administer 1 [place] into nostril as needed for Congestion. CoQ10 100 MG Oral Capsule Take by mouth daily. Benefiber Drink Mix Oral Packet Take 1 Dose by mouth daily. Privigen 40 GM/400ML Intravenous Solution (Immune Globulin Human-IVIG 10%) Administer 40 g intravenously Every Month. Every 28 days Breo Ellipta 200-25 MCG/ACT Inhalation Aerosol Powder Breath Activated INHALE ONE PUFF BY MOUTH EVERY DAY 180 Each 2 Fluticasone Propionate 50 MCG/ACT Nasal Suspension Administer 2 Sprays into nostril in the morning.Each nostril. 16 g 1 ICaps AREDS Formula Oral Tablet Take 1 Tablet by mouth in the morning and 1 Tablet before bedtime. Calquence 100 MG Oral Tablet (Acalabrutinib Maleate) Take 100 mg by mouth in the morning and 100 mgbefore bedtime. 60 Tablet 11 Finasteride 5 MG Oral Tablet (Proscar) Take 1 Tablet by mouth in the morning. 90 Tablet 0 No current facility-administered medications for this visit. 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) Gynecomastia Stage 3 chronic kidney disease (HCC) Hyperlipidemia Past Medical History: Diagnosis Date Asthma BPH (benign prostatic hyperplasia) Chronic sinusitis CLL (chronic lymphocytic leukemia) (HCC) CRF (chronic renal failure), stage 3 (moderate) (HCC) 08/22/2021 Dehydration 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 [place] NONE 02/05/2004 heart cath at [facility] NONE 10/07/1949 Tonsils and adenoids NONE 10/07/1976 Vasectomy NONE 11/14/[address] Yeager at [facility] REMOVAL OF PROSTATE (TURP) 02/27/2019 TRANSURETHRAL RESECTION PROSTATE ELECTROSURGICAL performed by Selene Lange MD at [facility] Social History Socioeconomic History Marital status: Spouse name: Not on file Number of children: Not on file Years of education: Not on file Highest education level: Not on file Occupational History Not on file Tobacco Use Smoking status: Never Smokeless tobacco: Never Vaping Use Vaping status: Never Used Substance and Sexual Activity Alcohol use: Never Drug use: Never Sexual activity: Yes Partners: Female Other Topics Concern Not on file Social History Narrative Not on file Social Needs Financial Resource Strain: Low Risk (07/07/2024) Financial Resource Strain Do you have any trouble paying for your medications, or do you think you might in the future? (Adult - for ages 18 years and over): No Does your family have trouble paying for medicine? (Household - for ages 0-17 years): Not on file Food Insecurity: No Food Insecurity (07/07/2024) Food Insecurity Do you need food for this week? (Adult - for ages 18 years and over): No Are you able to get enough food for your family? (Household - for ages 0-17 years): Not on file Does your family need food this week? (Household - for ages 0-17 years): Not on file Do you always have enough food for your family? (Household - for ages 0-17 years): Not on file Transportation Needs: No Transportation Needs (07/07/2024) Transportation Needs Do you have trouble getting a ride to medical visits or work? (Adult - for ages 18 years and over):Not on file Does your family have a hard time getting a ride to doctors visits? (Household - for ages 0-17 years): Not on file Has lack of transportation kept you from medical appointments, meetings, work, or from getting things needed for daily living? Check all that apply. (Adult - for ages 18 years and over): No Do you (or your family) have trouble finding or paying for a ride (transportation)? (Household - for ages 0-17 years): Not on file Social Connections: Socially Integrated (07/07/2024) Social Connections How often do you feel lonely or isolated from those around you? (Adult - for ages 18 years and over): Never Housing Stability: Low Risk (07/07/2024) Housing Stability Do you currently live in a assisted or have no steady place to sleep at night? (Adult - for ages 18 years and over): No Do you think you are at risk of becoming homeless? (Adult - for ages 18 years and over): Not on file Does your family worry about paying for your home or becoming homeless? (Household - for ages 0-17 years): Not on file Are you homeless or worried that you might be in the future? (Adult - for ages 18 years and over): No Are you (or your family) homeless or worried that you might be in the future? (Household - for ages0-17 years): Not on file Family History Problem Relation Name Age of Onset Diabetes Mother Stroke Father Ear Problems Father Obesity Sister Rula Arthritis Sister Rula No Known Problems Sister Jovanna Hypertension Brother Aaron Cancer Brother Ritesh [place] vet Alcohol and Other Disorders Associated Brother Osmany Mental Disorder Brother Osmany bi-polar Diabetes Grandmother (Maternal) Thyroid Disorder Grandmother (Maternal) No Known Problems Grandfather (Maternal) No Known Problems Grandmother (Paternal) No Known Problems Grandfather (Paternal) Immunodeficiency Daughter Jenna OCD Daughter Jenna No Known Problems Son Dipak Review of patient's allergies indicates: Allergen Reactions Lamictal [Lamotrigine] Other (Please comment) Causes patient to fall. Demerol [Meperidine Hcl] Rofecoxib rash &swelling in legs, stumbling (vioxx) Review of Systems Constitutional: Negative for activity change, appetite change, chills, diaphoresis, fatigue, fever and unexpected weight change. Respiratory: Negative for apnea, cough, choking, chest tightness, shortness of breath, wheezing andstridor. Cardiovascular: Negative for chest pain and leg swelling. Musculoskeletal: Negative for arthralgias, back pain, gait problem, joint swelling, myalgias, neck pain and neck stiffness. Objective BP 122/60 | Pulse 60 | Temp 97 F (36.1 C) (Tympanic) | Resp 20 | Ht 5' 10" (1.778 m) | Wt 154 lb 6.4 oz (70 kg) | SpO2 98% | BMI 22.15 kg/m | BSA 1.86 m Physical Exam Vitals and nursing note reviewed. Constitutional: General: He is not in acute distress. Appearance: Normal appearance. He is not ill-appearing. Cardiovascular: Rate and Rhythm: Normal rate and regular rhythm. No extrasystoles are present. Chest Wall: PMI is not displaced. No thrill. Pulses: No decreased pulses. Heart sounds: Normal heart sounds, S1 normal and S2 normal. Heart sounds not distant. No murmur heard. No friction rub. No gallop. No S3 or S4 sounds. Pulmonary: Effort: Pulmonary effort is normal. No tachypnea, bradypnea, accessory muscle usage, prolonged expiration, respiratory distress or retractions. Breath sounds: Normal breath sounds. No stridor, decreased air movement or transmitted upper airwaysounds. No decreased breath sounds, wheezing, rhonchi or rales. Chest: Chest wall: No mass, lacerations, deformity, swelling, tenderness, crepitus or edema. There is no dullness to percussion. Comments: L chest wall NTTP and without rashes Abdominal: General: Bowel sounds are normal. There is no distension. Palpations: Abdomen is soft. There is no mass. Tenderness: There is no abdominal tenderness. There is no guarding or rebound. Musculoskeletal: Right lower leg: No edema. Left lower leg: No edema. Lymphadenopathy: Upper Body: Left upper body: No supraclavicular, axillary or pectoral adenopathy. Neurological: Mental Status: He is alert. ASSESSMENT/PLAN: ICD-10-CM 1. Left-sided chest pain R07.[address] Chest without contrast ECHO, COMPLETE (2D), TRANS-THORACIC EKG 1. Left-sided chest wall pain: His EKG showed only sinus bradycardia and was similar to previous EKGs. I do not suspect a cardiac etiology, but the differential diagnosis for this is broad. Given hishistory of multiple skin cancers, pulmonary issues, and CLL, I will check a CT scan of the chest to evaluate for any pleural or chest wall or rib abnormalities. The somewhat positional nature of his chest pain merits an evaluation with an echocardiogram as well. We discussed that if his symptoms acutely worsen or change, I do recommend he go to the Emergency Room. Further workup will be based on his results. Follow Up: Return if symptoms worsen or fail to improve. Osmany Valenzuela MD Some or all of the text in this note was generated using an [employer] documentation service. I discussed the use of a device to record and summarize our discussion today. All persons present during theencounter consented to its use. documented in this encounter Nursing Notes * Kitty Archer LPN - 08/26/2024 2:11 PM EST Chief Complaint Patient presents with Acute Tano Rocha is a 79 year old male who presents today for evaluation of left sided chest pain. He experiencing symptoms when he lays on his left side. He will intermittently have some discomfort with deep breathing. He is able to do 1000 steps. He does a morning routine with push-ups and going up and down steps without difficulty. He symptoms have been ongoing for several months. documented in this encounter Plan of Treatment Upcoming Encounters Date Type Department Care Team (Late st Contact Info) Description 09/16/2024 10:00 AM EST [facility] [address] [place] [address] [place] [address] 09/17/2024 9:00 AM EST Pharmacy Pharmacy Hematology Oncology [facility] [place] [address] [place] [address] [facility] [place] Hem/Onc [address] [place] [address] 09/17/2024 10:15 AM EST [facility] [address] [place] [phone] Gemma, Chair [address] Hem On[address] [facility] [place] [place] [address] 10/14/2024 10:00 AM EST Laboratory [facility] [place] [address] [place] [phone] [place] [facility] [place] [address] [place] [address] 10/15/2024 10:00 AM EST [facility] [address] [place] [phone] Gemma, Chair 10 Hem Onc [facility] [address] [facility] [place], [place] [address] 01/07/2025 11:30 AM EDT Office Visit Hematology/Oncology [facility] [place] [address] [facility] [place] [phone] Carlos Pierre MD [address] [place], [place] [address] 02/11/2025 10:00 AM EDT Nurse Only Ancillary [place] [address] [place] [address] [place], Nurse Annual [facility] [address] [place] [address] 03/29/2025 10:30 AM EDT Office Visit [facility] [address] [place] [address] Paul Ha Jr., MD [address] [place] [address] 04/01/2025 11:00 AM EDT Office Visit [facility] [place], [place] [address] [place] [address] Linda Baeza DO [address] [place] [address] Scheduled Orders Name Type Priority Associated Diagnoses Orde r Schedule CT CHEST WO CONTRAST Medical Imaging Routine Left-sided chest pain Ordered: 08/26/2024 ECHO, COMPLETE (2D), TRANS-THORACIC Echocardiology Routine Left-sided chest pain Expected: 08/26/2024 (Approximate), Expires: 08/26/2025 EKG EKG Routine Left-sided chest pain Expected: 08/26/2024 (Approximate), Expires: 09/25/2025 Health Maintenance Due Date Last Done Comments COVID-19 Vaccine ( season) 2024 06/10/2024, 02/07/2024, 07/11/2023, Additional history exists Albumin/Creatinine Ratio 11/27/2024 11/27/2023, 10/07 CKD PHOS USE SMARTSET 87697 11/27/202411/08, 10/24/2022, 04/23/2021 Adult Wellness Visit 02/05/2025 02/06/2024, 12/14/19 23 GFR 02/16/2025 08/19/2024, 07/07, 06/24/2024, Additional history exists Depression Screening 07/07/2025 07/07/2024, 02/06/20 24 CKD HGB USE SMARTSET 34510 08/19/202508/19, 08/19/2024, 07/22/2024, Additional history exists DTap/Tdap [...] this encounter Medical Devices Implanted Type Area [place] [employer] Device Identifier Shelf Expiration Date Model / Serial / Lot Intraocular Lens Implanted:Qty: 1 on 01/12/2016 by Amari Loomis MD at [facility] Right: Eye 11/06/2018 [id number] / [id number] / [id number] documented as of this encounter Visit Diagnoses Diagnosis Left-sided chest pain- Primary documented in this encounter Advance Directives * Full Code (Latest Code Status on File) Date Activated Date Inactivated Comments 01/12/2016 9:49 AM 01/12/2016 3:56 PM This order ref lects the patients wishes and were consensually agreed upon. Care Teams Dump Attendant Relationship Specialty Start Date End Date Linda Baeza DO [address] [facility] [place] [address] PCP - General Family Medicine 09/11/22 documented as of this encounter
--- OUTSIDE RECORDS SUMMARY | 2024-12-05 15:19 | External Medical Summary ---
Author Name Unknown Address Unknown Organization [id number]:LABORATORY [facility] [place] - [address] [place] [address] Laboratory Report Ordering Provider Test Date Status KASSIDY RADFORD 09/16/2024 09:59:40 Final Observation Date Value Abnormality Reference (Units ) Status WBC, Total 09/16/2024 09:59:40 15.61 Above high normal 4.00-10.80 (K/uL) Final RBC 09/16/2024 09:59:40 4.02 4.50-5.25 (M/uL) Final Hemoglobin 09/16/2024 09:59:40 13.2 Below low normal 14.0-16.8 (g/dL) Final HCT 09/16/2024 09:59:40 41.2 40.0-48.4 (%) Final MCV 09/16/2024 09:59:40 102.5 82.0-99.5 (fL) Final MCH 09/16/2024 09:59:40 32.8 27.0-34.0 (pg) Final MCHC 09/16/2024 09:59:40 32.0 32.0-36.0 (g/dL) Final RDW 09/16/2024 09:59:40 14.9 11.5-15.5 (%) Final Platelets 09/16/2024 09:59:40 137 Below low normal 140-400 (K/uL) Final MPV 09/16/2024 09:59:40 11.2 6.6-11.1 (fL) Final Nucleated erythrocytes/100 leukocytes [Ratio] in Blood by Automated count 09/16/2024 09:59:40 0 <=0 (/100 WBCs) Final Performing Location LAB[facility]ORY [facility] [place] - [address] [place] [address]
--- OUTSIDE RECORDS SUMMARY | 2024-12-05 15:19 | External Medical Summary ---
Author Name Unknown Address Unknown Organization K01:[facility] [place] - [address] [facility] [address] Laboratory Report Ordering Provider Test Date Status KASSIDY RADFORD 09/16/2024 09:59:40 Final Observation Date Value Abnormality Reference (Units ) Status BUN 09/16/2024 09:59:40 30 Above high normal 6-20 (mg/dL) Final Creatinine 09/16/2024 09:59:40 1.1 0.6-1.2 (mg/dL) Final Glomerular filtration rate/1.73 sq M.predicted [Volume Rate/Area] in Serum, Plasma or Blood by Creatinine-based formula (CKD-EPI) 09/16/2024 09:59:40 65 >=60 (mL/min) Final eGFR is calculated based on the CKD-EPI 2020 equation. Sodium 09/16/2024 09:59:40 142 135-146 (m mol/L) Final Potassium 09/16/2024 09:59:40 4.2 3.5-5.1 (m mol/L) Final Cl 09/16/2024 09:59:40 106 98-107 (mm ol/L) Final CO2 09/16/2024 09:59:40 27 22-32 (mmo l/L) Final Anion gap 09/16/2024 09:59:40 9 7-15 (mmol /L) Final Glucose 09/16/2024 09:59:40 106 70-120 (mg /dL) Final Albumin 09/16/2024 09:59:40 4.4 3.8-5.0 (g /dL) Final AST (Aspartate aminotransferase) 09/16/2024 09:59:40 21 10-50 (U/L) Final Results may be falsely eleva kacie due to hemolysis. Alk Phos 09/16/2024 09:59:40 79 35-130 (U/ L) Final Bilirubin, Total 09/16/2024 09:59:40 0.3 <=1 .2 (mg/dL) Final Calcium 09/16/2024 09:59:40 10.3 Above high normal 8. 4-10.2 (mg/dL) Final Protein 09/16/2024 09:59:40 6.1 6.0-8.3 (g /dL) Final ALT (Alanine aminotransferase) 09/16/2024 09:59:40 15 10-50 (U/L) Giovanni mayfield Performing Location [facility] [place] - [facility] [address] [address]
--- OUTSIDE RECORDS SUMMARY | 2024-12-05 15:19 | External Medical Summary | Summary of Care ---
Author Name Unknown Organization [facility] Address [address] [place] [address] Phone [phone] Care Team Providers Care Junior Php Developer Name Role Phone Linda Baeza DO Primary Care Provider +1- [phone] Reason for Visit * Reason Comments IV Therapy IVIG * Episode Based Medications (Routine) - Authorized Specialty Diagnoses / Procedures Referred By Soham joel Referred To Contact Diagnoses CLL (chronic lymphocytic leukemia) (HCC) Hypogammaglobulinemia (HCC) Procedures VT INJ IVIG PRIVIGEN 500 MG Carlos Pierre MD [address] [place] [address] Phone: tel: fax: Hematology/Oncology Treatment, [place] DEPT CLOSED - 08/20/23 [address] [place] [address] Phone: tel: fax: Referral ID Status Reason Start Date Expiration Date V isits Requested Visits Authorized [id number] Authorized 05/14/2023 04/21/2025 [id number] Encounter Details Date Type Department Care Team (Latest Contact Info) Description 08/20/2024 10:30 AM EST Hem/Onc Treatment Hematology/Oncology Treatment, [place] [address] [place] [address] Gemma, Chair 7 Hem Onc Scenery [address] [place] [address] CLL (chronic lymphocytic leukemia) (HCC)*; Hypogammaglobulinem ia ([facility]) Allergies Active Allergy Reactions Criticality Noted [...] by mouth 1 Tablet daily . Active [place] 3 1000 MG Oral Capsule Take by mouth daily . Active Saline 0.65 % Nasal Solution Administer 1 [place] into nostril as needed for Congestion. Active [...] Tablet (Acalabrutinib Maleate)Indicati ons:CLL (chronic lymphocytic leukemia) ([facility]) Take 100 mg by mouth in [...] AM EST Laboratory Laboratory [address] [place] [address] [place] [address] 09/17/2024 9:00 AM EST Pharmacy Pharmacy Hematology Oncology [address] [address] [facility], [facility] Hem[facility]Onc [address] [facility] [place] [address] 09/17/2024 10:15 AM EST Hem/Onc Treatment Hematology/Oncology Treatment, [place] [address] [place] [phone] Gemma, Chair 10 Hem Onc Scenery [address] [place] [address] 09/28/2024 9:45 AM EST Imaging [facility] [address] [place] [address] 09/28/2024 10:00 AM EST Cardiac Studies Cardiac Studies, [facility] [address] [facility] [address] 10/14/2024 10:00 AM EST Laboratory Laboratory [address] [place] [phone] [place], Lab [address] [place] [address] 10/15/2024 10:00 AM EST Hem/Onc Treatment Hematology/Oncology Treatment, [place] [address] [place] [phone] Gemma, Chair 10 Hem Onc Scenery [address] [place] [address] 01/07/2025 11:30 AM EDT Office Visit Hematology/Oncology [facility] Gemma [place] [address] [place] [address] Carlos Pierre MD [address] [place] [address] 02/11/2025 10:00 AM EDT Nurse Only Ancillary [address] [place] [address] [place], Nurse Annual Wellness Cold [address] [place] [address] 03/29/2025 10:30 AM EDT Office Visit Urology Ghada Fraser [address] [place] [address] Paul Ha Jr., MD [address] [place] [address] 04/01/2025 11:00 AM EDT Office Visit Family Practice [address], [place] [address] [place] [address] Linda Baeza DO [address] [place] [address] Health Maintenance Due Date Last Done Comments COVID-19 Vaccine ( season) 2024 06/10/2024, 02/07/2024, 07/11/2023, Additional history exists Albumin/Creatinine Ratio 11/27/2024 11/27/2023, 10/07 CKD PHOS USE SMARTSET 25958 11/27/202411/08, 10/24/2022, 04/23/2021 Adult Wellness Visit 02/05/2025 02/06/2024, 12/14/19 23 GFR 02/16/2025 08/19/2024, 07/07, 06/24/2024, Additional history exists Depression Screening 07/07/2025 07/07/2024, 02/06/20 24 CKD HGB USE SMARTSET 87431 08/19/202508/19, 08/19/2024, 07/22/2024, Additional history exists DTap/Tdap [...] this encounter Medical Devices Implanted Type Area Mill House Supervisor Device Identifier Shelf Expiration Date Model / Serial / Lot Intraocular Lens Implanted:Qty: 1 on 01/12/2016 by Amari Loomis MD at OR [facility] Right: Eye 11/06/2018 MX60+11.0 / [id number] / [id number] documented as of this encounter Visit Diagnoses [...] and were consensually agreed upon. Care Teams Junior Php Developer Relationship Specialty Start Date End Date Linda Baeza DO [address] [facility] [place] [address] PCP - General Family Medicine 09/11/22 documented as of this encounter
--- OUTSIDE RECORDS SUMMARY | 2024-12-05 15:20 | External Medical Summary | Summary of Care ---
Author Name Unknown Organization [facility] Address [address] [place] [address] Phone [phone] Care Team Providers Care Pile Header Name Role Phone Linda Baeza DO Primary Care Provider +1- [phone] Reason for Visit * Reason Comments Outpatient Testing Encounter Details Date Type Department Care Team (Late st Contact Info) Description 08/19/2024 10:00 AM EST Laboratory Laboratory [facility] [address] [place] [address] [facility] [address] [place] [address] CLL (chronic lymphocytic leukemia) ([facility]) Allergies Active Allergy Reactions Criticality Noted Date Comments Meperidine Hcl 02/19/2019 Lamotrigine Other (Please comment) Medium 07/19/2021 Causes patient to fall. Rofecoxib 11/06/2004 rash &swelling in legs, stumbling (vioxx) documented as of this encounter (statuses as of 08/19/2024) Medications NATURAL SUPPLEMENTIndica tions:Per Pt: to prevent arthritis Take by mouth. Vinegar/Honey Daily 0 0 07/12/20 05 Active Probiotic Product (PROBIOTIC ACIDOPHILUS BIOBEADS) Capsule Take 1 Capsule by mouth in the morning. Active Multiple Vitamins-Mineral s (MULTIVITAMIN MEN 50+) TABS Take by mouth 1 Tablet daily . Active [place] 3 1000 MG Oral Capsule Take by mouth daily . Active Saline 0.65 % Nasal Solution Administer 1 [place] into nostril as needed for Congestion. Active [...] the morning. 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[facility]),Bronchiectasis with acute exacerbation ([facility]) 2.5 mg NEBULIZER ONCE PRN 08/21/2023 08/20/2024 Active documented as of this encounter (statuses as of 08/19/2024) Active Problems Problem Noted Date Diagnosed Date Hyperlipidemia 10/31/2023 Heart failure 08/21/2023 Stage 3 chronic kidney disease 08/09/2023 Esophageal [...] as of this encounter (statuses as of 08/19/2024) Resolved Problems Problem Noted Date Diagnosed Date Resolved Date Vasovagal episode 10/24/2023 10/31/2023 Acute respiratory failure with hypoxia 08/21/2023 10/31/2023 Dyslipidemia 09/11/2022 10/31/2023 Asthma 09/11/2022 09/11/2022 Stage 3 chronic kidney disease 09/11/2022 09/11/2022 Stage 3 chronic kidney disease 09/11/2022 09/11/2022 Dehydration 05/01/2022 10/31/2023 CRF (chronic renal failure), stage 3 (moderate) 08/22/2021 04/25/2023 Seizure disorder 12/16/2020 09/11/2022 Asthma, mild persistent 04/30/201303/07 Tuberculosis, treated 07/30/20082021 documented as of this encounter (statuses as of 08/19/2024) Immunizations Name Administration Dates Next Due COVID-19 mRNA, LNP-s, No Pre serve, 2-Dose Series ([employer]) 06/07/2021,12/14/2020,11/23/2020 COVID-19, LNP-s, No Preserve , William-sucrose, [...] Care Team (Late st Contact Info) Description 08/20/2024 9:00 AM EST Pharmacy Pharmacy Hematology Oncology [facility] [address] [place] [address] [facility] Hem/Onc [address] [place] [address] 08/20/2024 10:30 AM EST Hem/Onc Treatment Hematology/Oncology Treatment, [place] [address] [place], [place] [phone] Gemma, Chair 7 Hem Onc Scenery [address] [place], [place] [address] 09/16/2024 10:00 AM EST Laboratory Laboratory [place] Jennie Patel [address] [place] [address] Jonatan [address] [place] [address] [place] [address] 09/17/2024 10:15 AM EST Hem/Onc Treatment Hematology/Oncology Treatment, [place] 200 [place] [phone] Gemma, Chair 10 Hem Onc Scenery [address] [place], [place] [address] 10/14/2024 10:00 AM EST Laboratory Laboratory [place] Jorge Huerfano [address] [place] [phone] [place], Lab [place] [address] [place] [address] 10/15/2024 10:00 AM EST Hem/Onc Treatment Hematology/Oncology Treatment, [place] 200 [place] [phone] Gemma, Chair 10 Hem Onc Scenery 200 [facility] [place], [place] [address] 01/07/2025 11:30 AM EDT Office Visit Hematology/Oncology [facility] [place] [address] [place], [place] [address] Carlos Pierre MD [address] [facility], [place] [address] 02/11/2025 10:00 AM EDT Nurse Only Ancillary [place] Jorge Huerfano [address] [place] [address] [place], Nurse Annual Wellness [place] [address] [place] [address] 03/29/2025 10:30 AM EDT Office Visit Urology Ghada Fraser [address] [place] [address] Paul Ha Jr., MD [address] [place] [address] 04/01/2025 11:00 AM EDT Office Visit Family [facility] [place] [address] [place] [address] [place] [address] Linda Baeza DO [address] [address] [place] [address] Pending Results Name Type Priority Associated Diagnoses Date /Time IMMUNOGLOBULIN QUANTITATIVE Lab STAT CLL (chronic lymphocytic leukemia) ([facility]) 08/19/2024 9:56 AM EST CBC WITH WBC DIFFERENTIAL Lab STAT CLL (chronic lymphocytic leukemia) ([facility]) 08/19/2024 9:56 AM EST COMPREHENSIVE METABOLIC PANEL Lab STAT CLL (chronic lymphocytic leukemia) ([facility]) 08/19/2024 9:56 AM EST CBC Lab STAT CLL (chronic lymphocytic leukemia) ([facility]) 08/19/2024 9:56 AM EST DIFFERENTIAL, AUTOMATED Lab STAT CLL (chronic lymphocytic leukemia) ([facility]) 08/19/2024 9:56 AM EST Health Maintenance Due Date Last Done Comments COVID-19 Vaccine ( season) 2024 06/10/2024, 02/07/2024, 07/11/2023, Additional history exists Albumin/Creatinine Ratio 11/27/2024 11/27/2023, 10/07 CKD PHOS USE SMARTSET 69416 11/27/202411/08, 10/24/2022, 04/23/2021 GFR 01/20/2025 07/22/2024, 06/07, 05/27/2024, Additional history exists Adult Wellness Visit 02/05/2025 02/06/2024, 12/14/19 23 Depression Screening 07/07/2025 07/07/2024, 02/06/20 24 CKD HGB USE SMARTSET 89854 07/22/202507/22, 07/22/2024, 06/24/2024, Additional history exists DTap/Tdap Vaccines (4 - [...] this encounter Medical Devices Implanted Type Area Plumber Maintenance Device Identifier Shelf Expiration Date Model / Serial / Lot Intraocular Lens Implanted:Qty: 1 on 01/12/2016 by Amari Loomis MD at OR [facility] Right: Eye 11/06/2018 MX60+11.0 / [id number] / [id number] documented as of this encounter Visit Diagnoses Diagnosis CLL (chronic lymphocytic leukemia) (HCC) Chronic lymphoid leukemia, without mention of having achieved remission documented in this encounter Advance Directives * Full Code (Latest Code Status on File) Date Activated Date Inactivated Comments 01/12/2016 9:49 AM 01/12/2016 3:56 PM This order ref lects the patients wishes and were consensually agreed upon. Care Teams Pile Header Relationship Specialty Start Date End Date Linda Baeza DO [address] [facility] [place] [phone] PCP - General Family Medicine 09/11/22 documented as of this encounter
--- OUTSIDE RECORDS SUMMARY | 2024-12-05 15:20 | External Medical Summary | Summary of Care ---
Author Name Unknown Organization [facility] Address [address] [place] [address] Phone [phone] Care Team Providers Care Coke Crane Operator Name Role Phone Linda Baeza DO Primary Care Provider +1- [phone] Reason for Visit * Reason Comments Medication Administration IVIG * Episode Based Medications (Routine) - Authorized Specialty Diagnoses / Procedures Referred By Soham t Referred To Contact Diagnoses CLL (chronic lymphocytic leukemia) (HCC) Hypogammaglobulinemia (HCC) Procedures [place] INJ IVIG PRIVIGEN 500 MG Carlos Pierre MD 200 [facility] [place] [address] Phone: tel: fax: Hematology/Oncology Treatment, [place] DEPT CLOSED - 08/20/23 [address] [facility] [place] [address] Phone: tel: fax: Referral ID Status Reason Start Date Expiration Date V isits Requested Visits Authorized [id number] Authorized 05/14/2023 04/21/2025 [id number] Encounter Details Date Type Department Care Team (Latest Contact Info) Description 07/23/2024 11:15 AM EDT Hem/Onc Treatment Hematology/Oncology Treatment, [place] [address] [place] [address] Gemma, Chair 9 Hem Onc Scenery 200 [facility] [place] [address] CLL (chronic lymphocytic leukemia) (HCC)*; Hypogammaglobulinem ia ([facility]) Allergies Active Allergy Reactions Criticality Noted Date Comments Meperidine Hcl 02/19/2019 Lamotrigine Other (Please comment) Medium 07/19/2021 Causes patient to fall. Rofecoxib 11/06/2004 rash &swelling in legs, stumbling (vioxx) documented as of this encounter (statuses as of 08/18/2024) Medications NATURAL SUPPLEMENTIndic ations:Per Pt: to prevent arthritis Take by mouth. Vinegar/Honey Daily 0 0 005 Active Probiotic Product (PROBIOTIC ACIDOPHILUS BIOBEADS) Capsule Take 1 Capsule by mouth in the morning. Active Multiple Vitamins-Minera ls (MULTIVITAMIN MEN 50+) TABS Take by mouth 1 Tablet daily . Active [place] 3 1000 MG Oral Capsule Take by mouth daily . Active Saline 0.65 % Nasal Solution Administer 1 [place] into nostril as needed for Congestion. Active [...] Each 2 07/13/20 24 9:32 AM EDT 024 Active Fluticasone Propionate 50 MCG/ACT Nasal SuspensionIndic ations:Asthma, moderate persistent Administer 2 Sprays into nostril in the morning. Each nostril. 16 g 1 024 Active ICaps AREDS Formula Oral Tablet Take 1 Tablet by mouth in the morning and 1 Tablet before bedtime. Active Acalabrutinib 100 MG Oral Capsule (Calquence)Kaylee cations:CLL (chronic lymphocytic leukemia) ([facility]) Take 100 mg by mouth in the morning and 100 mg before bedtime. With or without food. 60 Capsule 11 023 2023 Discontinued(R efill) Finasteride 5 MG Oral Tablet (Proscar) Take 1 Tablet by mouth in the morning. 90 Tablet 3 024 2023 Discontinued Hospital, Clinic, or Other Facility Administered Medication Ordered Dose Route Frequency Start Date End Date Status Albuterol Sulfate (Proventil) (2.5 MG/3ML) 0.083% inhalation solution 2.5 mgIndications:Multifoca l pneumonia,LULI (mycobacterium avium-intracellulare) (HCC),Bronchiectasis with acute exacerbation (HCC) 2.5 mg NEBULIZER ONCE PRN 08/21/2023 08/20/2024 Active documented as of this encounter (statuses as of 08/18/2024) Active Problems Problem Noted Date Diagnosed Date [...] as of this encounter (statuses as of 08/18/2024) Resolved Problems Problem Noted Date Diagnosed Date [...] as of this encounter (statuses as of 08/18/2024) Immunizations Name Administration Dates Next Due COVID-19 mRNA, LNP-s, No Pre serve, 2-Dose Series (360pi) 06/07/2021,12/14/2020,11/23/2020 COVID-19, LNP-s, No Preserve , William-sucrose, [...] 2:00 PM EST Rina Cooper, TECH * Because of a physical, mental, [...] documented in this encounter Nursing Notes * Carina Bauer RN - 07/23/2024 2:24 PM EDT Infusion complete, Patient tolerated well. No complaints voiced. IV site removed and dry dressing applied Goals: Patient will remain free from injury. Possible barriers to meeting goals: IV pump/ IV tubing, advanced age Stability of the patient: Moderately stable - low risk of patient condition declining or worsening Summary regarding today's goals: Met: Patient remained free from harm/injury during treatment. Patient left facility in stable condition. * Carina Bauer RN - 07/23/2024 11:19 AM EDT Chair 9. Patient here for treatment. Patient with no complaints. Saw Dr. Pierre this AM. IV started in LFA without difficulty, patient tolerated well. Safety and Risk for Injury Patient will [...] Description 08/19/2024 10:00 AM EST Laboratory Laboratory [facility] [place] [address] [facility] [address] [place] [facility] [address] [place] [address] 08/20/2024 9:00 AM EST Pharmacy Pharmacy Hematology Oncology [facility] [place] [address] [place] [address] [facility] [place] Hem/Onc [address] [place] [address] 08/20/2024 10:30 AM EST Hem/Onc Treatment Hematology/Oncology Treatment, [place] [address] [place] [phone] Chair Gemma 7 Hem Onc Scenery [address] [place], [place] [address] 09/16/2024 10:00 AM EST Laboratory Laboratory [address] [place] [phone] [place], Lab [address] [place] [address] 09/17/2024 10:15 AM EST [facility] 200 [facility], [place] [phone] [place], Chair 10 Hem Onc Scenery 200 [facility] [place], [place] [address] 10/14/2024 10:00 AM EST Laboratory Laboratory [address] [place] [phone] [place], Lab [address] [place] [address] 10/15/2024 10:00 AM EST Hem[facility] 200 [facility], [place] [phone] Gemma, Chair 10 Hem Onc Scenery 200 [facility] [place], [place] [address] 01/07/2025 11:30 AM EDT Office Visit Hematology/Oncology [facility] [place] [address] [facility] [place], [place] [phone] Carlos Pierre MD [address] [place], [place] [address] 02/11/2025 10:00 AM EDT Nurse Only Ancillary [address], [place] [address] [place] [address] [place], Nurse Annual Wellness Cold [address] [place] [address] 03/29/2025 10:30 AM EDT Office Visit Urology Ghada Fraser [address] [place] [address] Paul Ha Jr., MD [address] [place] [address] 04/01/2025 11:00 AM EDT Office Visit [facility] [address], [place] [address] [place] [address] Linda Baeza DO [address] [place] [address] Health Maintenance Due Date Last Done Comments COVID-19 Vaccine ( season) 2024 06/10/2024, 02/07/2024, 07/11/2023, Additional history exists Albumin/Creatinine Ratio 11/27/2024 11/27/2023, 10/07 CKD PHOS USE SMARTSET 22371 11/27/202411/08, 10/24/2022, 04/23/2021 GFR 01/20/2025 07/22/2024, 06/07, 05/27/2024, Additional history exists Adult Wellness Visit 02/05/2025 02/06/2024, 12/14/19 23 Depression Screening 07/07/2025 07/07/2024, 02/06/20 24 CKD HGB USE SMARTSET 39289 07/22/202507/22, 07/22/2024, 06/24/2024, Additional history exists DTap/Tdap [...] this encounter Medical Devices Implanted Type Area Mailing Machine Assistant Device Identifier Shelf Expiration Date Model / Serial / Lot Intraocular Lens Implanted:Qty: 1 on 01/12/2016 by Amari Loomis MD at OR [facility] Right: Eye 11/06/2018 MX60+11.0 / [id number] / [id number] documented as of this encounter Visit Diagnoses [...] infusion reaction with IVIG, Starting on Andreina 07/23/24 at 1230, Until Andreina 07/23/24 at 2029, Maximum of 4 grams (4000 mg) per day.Indications:CLL (chronic lymphocytic leukemia) (HCC),Hypogammaglobulinemia (HCC) Given 07/23/2024 11:31 AM EDT 650 mg diphenhydrAMINE (Benadryl) cap 25 mg 25 mg, Oral, ONCE PRN If previous infusion reaction with IVIG, Starting on Andreina 07/23/24 at 1230, Until Andreina 07/23/24 at 2029Indications:CLL (chronic lymphocytic leukemia) (HCC),Hypogammaglobulinemia (HCC) Given 07/23/2024 11:31 AM EDT 25 mg Immune Globulin Human- IVIG 10% (Privigen) IV 20 g 20 g, IV Piggyback, ONCE, 1 dose, On Andreina 07/23/24 at 1400, PRIVIGEN infusion instructions Infusion Rate [...] (chronic lymphocytic leukemia) (HCC),Hypogammaglobulinemia (HCC) Start Infusion 07/23/2024 1:04 PM EDT 20 g 350 mL/hr Immune Globulin Human-IVIG 10% (Privigen) IV 10 g 10 g, IV Piggyback, ONCE, 1 dose, On Andreina 07/23/24 at 1300, PRIVIGEN infusion instructions Infusion Rate [...] (chronic lymphocytic leukemia) (HCC),Hypogammaglobulinemia (HCC) Rate Change 07/23/2024 12:45 PM EDT 175 mL/hr Rate Change 07/23/2024 12:29 PM EDT 88 mL/hr Rate Change 07/23/2024 12:13 PM EDT 44 mL/hr NSS infusion 500 mL, Intravenous, at 100 mL/hr Administer over 10 Hours, CONTINUOUS, Starting on Andreina 07/23/24 at 1230, Until Andreina 07/23/24 at 2030Indications:CLL (chronic lymphocytic leukemia) (HCC),Hypogammaglobulinemia (HCC) Start Infusion 07/23/2024 11:31 AM EDT 500 mL 100 mL/hr documented in this encounter Advance Directives * Full Code (Latest Code Status on File) Date Activated Date Inactivated Comments 01/12/2016 9:49 AM 01/12/2016 3:56 PM This order ref lects the patients wishes and were consensually agreed upon. Care Teams Coke Crane Operator Relationship Specialty Start Date End Date Linda Baeza DO [address] [facility] [place] [phone] PCP - General Family Medicine 09/11/22 documented as of this encounter
--- OUTSIDE RECORDS SUMMARY | 2024-12-05 15:20 | External Medical Summary ---
Author Name Unknown Address Unknown Organization K01:LABORATORY C - [address] [facility] [address] [place] [address] Laboratory Report Ordering Provider Test Date Status KASSIDY RADFORD 08/19/2024 09:56:53 Final Observation Date Value Abnormality Reference (Units ) Status SYNC LEUKOCYTES IN BLOOD BY AUTOMATED COUNT 08/19/2024 09:56:53 13.88 Above high normal 4.00-10.80 (K/uL) Final Neutrophils/100 leukocytes in Blood by Manual count 08/19/2024 09:56:53 28.0 Below low normal 40.0-75.0 (%) Final Lymphocytes/100 leukocytes in Blood by Manual count 08/19/2024 09:56:53 57.0 Above high normal 18.0-42.0 (%) Final Monocytes/100 leukocytes in Blood by Manual count 08/19/2024 09:56:53 15.0 Above high normal 1.0-11.0 (%) Final Neutrophils [#/volume] in Blood by Manual count 08/19/2024 09:56:53 3.89 1.80-7.70 (K/uL) Final Lymphocytes [#/volume] in Blood by Manual count 08/19/2024 09:56:53 7.91 Above high normal 1.00-4.80 (K/uL) Final Monocytes [#/volume] in Blood by Manual count 08/19/2024 09:56:53 2.08 Above high normal 0.00-1.10 (K/uL) Final Performing Location LABORATORY C - [address] [place] [address]
--- OUTSIDE RECORDS SUMMARY | 2024-12-05 15:20 | External Medical Summary | Summary of Care ---
Author Name Unknown Organization [facility] Address [address] [place] [address] Phone [phone] Care Team Providers Care Laborer Drying Department Name Role Phone Linda Baeza DO Primary Care Provider +1- [phone] Reason for Visit * Reason Onset Date Comments Medication Refill 08/03/2024 Encounter Details Date Type Department Care Team (Late st Contact Info) Description 08/03/2024 Telephone Hematology/Oncology [facility] [address] [facility] [place] [phone] Carlos Pierre MD [address] [place] [address] Medication Refill Allergies Active Allergy Reactions Criticality Noted Date Comments Meperidine Hcl 02/19/2019 Lamotrigine Other (Please comment) Medium 07/19/2021 Causes patient to fall. Rofecoxib 11/06/2004 rash &swelling in legs, stumbling (vioxx) documented as of this encounter (statuses as of 08/04/2024) Medications Medication Sig Dispensed Refills Start Date End Date Status NATURAL SUPPLEMENTIndicat ions:Per Pt: to prevent arthritis Take by mouth. Vinegar/Honey Daily 0 0 07/12/2005 Active Probiotic Product (PROBIOTIC ACIDOPHILUS BIOBEADS) Capsule Take 1 Capsule by mouth in the morning. Active Multiple Vitamins-Minerals (MULTIVITAMIN MEN 50+) TABS Take by mouth 1 Tablet daily . Active Kelly 3 1000 MG Oral Capsule Take by mouth daily . Active Saline 0.65 % Nasal Solution Administer 1 Monson into nostril as needed for Congestion. Active CoQ10 100 MG Oral Capsule Take by mouth daily. Active Benefiber Drink Mix Oral Packet Take 1 Dose by mouth daily. Active Privigen 40 GM/400ML Intravenous Solution (Immune Globulin Human-IVIG 10%) Administer 40 g intravenously Every Month. Every 28 days Active Finasteride 5 MG Oral Tablet (Proscar) Take 1 Tablet by mouth in the morning. 90 Tablet 3 03/16/2024 Active Breo Ellipta 200-25 MCG/ACT Inhalation Aerosol Powder Breath ActivatedIndicati ons:Moderate persistent asthma without complication INHALE ONE PUFF BY MOUTH EVERY DAY 180 Each 2 04/08/2024 Active Fluticasone Propionate 50 MCG/ACT Nasal SuspensionIndicat ions:Asthma, moderate persistent Administer 2 Sprays into nostril in the morning. Each nostril. 16 g 1 06/12/2024 Active ICaps AREDS Formula Oral Tablet Take 1 Tablet by mouth in the morning and 1 Tablet before bedtime. Active Calquence 100 MG Oral Tablet (Acalabrutinib Maleate)Indicatio ns:CLL (chronic lymphocytic leukemia) (HCC) Take 100 mg by mouth in the morning and 100 mg before bedtime. 60 Tablet 11 08/03/2024 Active Calquence 100 MG Oral Tablet (Acalabrutinib Maleate)Indicatio ns:CLL (chronic lymphocytic leukemia) (HCC) Take 100 mg by mouth in the morning and 100 mg before bedtime. 60 Tablet 11 07/31/2024 Discontinue d(Refill) Hospital, Clinic, or Other Facility Administered Medication Ordered Dose Route Frequency Start Date End Date Status Albuterol Sulfate (Proventil) (2.5 MG/3ML) 0.083% inhalation solution 2.5 mgIndications:Multifoca l pneumonia,LULI (mycobacterium avium-intracellulare) ([facility]),Bronchiectasis with acute exacerbation ([facility]) 2.5 mg NEBULIZER ONCE PRN 08/21/2023 08/20/2024 Active documented as of this encounter (statuses as of 08/04/2024) Active Problems Problem Noted Date Diagnosed Date [...] as of this encounter (statuses as of 08/04/2024) Resolved Problems Problem Noted Date Diagnosed Date [...] as of this encounter (statuses as of 08/04/2024) Immunizations Name Administration Dates Next Due COVID-19 mRNA, LNP-s, No Pre serve, 2-Dose Series (Kwelia) 06/07/2021,12/14/2020,11/23/2020 COVID-19, LNP-s, No Preserve , William-sucrose, [...] Date Recorded PHQ Adult Total Score 0 02/06/2024 Hunger Vital Sign Answer Date Recorded Within [...] Assigned at Male 08/13/2023 12:11 PM EST Gender Identity Male 08/13/2023 12:11 PM EST Sexual Orientation Straight 08/13/2023 12 :11 PM EST Job Start Date Occupation Industry Not on [...] making decisions? (5 years old or older) No 09/08/2014 documented as of this encounter Miscellaneous Notes * Telephone Encounter - Amy Mendoza RPh - 08/03/2024 1:41 PM EDT Forwarding calquence for [facility] (full service vending driver pharmacy) due to luis eduardo with full service vending driver Amy Mendoza RPH, PharmD Specialty Medication Pharmacist [facility] 08/03/2024,1:42 PM documented in this encounter Plan of Treatment Upcoming Encounters Date Type Department Care Team (Late st Contact Info) Description 08/19/2024 10:00 AM EST Laboratory Laboratory [place] Pat[place] [address] [facility] [place] [phone] [place], [facility] [address] [facility] [address] 08/20/2024 9:00 AM EST Pharmacy Pharmacy Hematology Oncology [place] [address] [place] [address] [facility] Hem/Onc [address] [place] [address] 08/20/2024 10:30 AM EST Hem/Onc Treatment Hematology/Oncology Treatment, [place] [address] [place] [phone] [place], Chair 7 Hem Onc Scenery [address] [place], [place] [address] 09/16/2024 10:00 AM EST Laboratory Laboratory [place] [address], [place] [address] [place] [phone] [place], Lab [place] [address] [place] [address] 09/17/2024 10:15 AM EST Hem/Onc Treatment Hematology/Oncology Treatment, [place] [address] [place] [phone] Gem[place], Chair 10 Hem Onc Scenery [address] [place], [place] [address] 10/14/2024 10:00 AM EST Laboratory Laboratory [address], [place] [address] [place] [phone] [place], Lab [place] [address] [place] [address] 10/15/2024 10:00 AM EST Hem/Onc Treatment Hematology/Oncology Treatment, [place] [address] [facility], [place] [phone] Gemma, Chair 10 Hem Onc Scenery [address] [place], [place] [address] 01/07/2025 11:15 AM EDT Office Visit Hematology/Oncology Scenery [place] [address] [place], [place] [address] Carlos Pierre MD [address] [place], [place] [address] 02/11/2025 10:00 AM EDT Nurse Only Ancillary [place] [address], [place] [address] [place] [address] [place], Nurse Annual Wellness Cold [address] [place] [address] 03/29/2025 10:30 AM EDT Office Visit Urology Ghada Fraser [address] [place] [address] Paul Ha Jr., MD [address] [place] [address] 04/01/2025 11:00 AM EDT Office [facility] [address] [address] [place] [address] Linda Baeza DO [address] [place] [address] Health Maintenance Due Date Last Done Comments Albumin/Creatinine Ratio 11/27/2024 11/27/2023, 10/07 CKD PHOS USE SMARTSET 38070 11/27/202411/08, 10/24/2022, 04/23/2021 GFR 01/20/2025 07/22/2024, 06/07, 05/27/2024, Additional history exists Adult Wellness Visit 02/05/2025 02/06/2024, 12/14/19 23 Depression Screening 07/07/2025 07/07/2024, 02/06/20 24 CKD HGB USE SMARTSET 54182 07/22/202507/22, 07/22/2024, 06/24/2024, Additional history exists DTap/Tdap Vaccines (4 - Td or Tdap) 03/10/2028 03/10/2018, 03/20/2013, 10/31/2011 Pneumococcal Vaccine: 65+ Years Completed 08/08/2015, 03/20/2013 Zoster Vaccines Completed 06/06/2018, 04/02/2018 COVID-19 Vaccine Completed 06/10/2024, 12/2023, 07/11/2023, Additional history exists Influenza Vaccine (FLU shot) Completed 01/2024, 06/10/2024, [...] this encounter Medical Devices Implanted Type Area Counter Attendant Device Identifier Shelf Expiration Date Model / Serial / Lot Intraocular Lens Implanted:Qty: 1 on 01/12/2016 by Amari Loomis MD at OR [facility] Right: Eye 11/06/2018 MX60+11.0 / [id number] / [id number] documented as of this encounter Visit Diagnoses Diagnosis CLL (chronic lymphocytic leukemia) (HCC) Chronic lymphoid leukemia, without mention of having achieved remission documented in this encounter Advance Directives * Full Code (Latest Code Status on File) Date Activated Date Inactivated Comments 01/12/2016 9:49 AM 01/12/2016 3:56 PM This order ref lects the patients wishes and were consensually agreed upon. Care Teams Laborer Drying Department Relationship Specialty Start Date End Date Linda Baeza DO [address] [facility] [place] [address] PCP - General Family Medicine 09/11/22 documented as of this encounter
--- OUTSIDE RECORDS SUMMARY | 2024-12-05 15:20 | External Medical Summary | Summary of Care ---
Author Name Unknown Organization [facility] Address [address] [place] [address] Phone [phone] Care Team Providers Care Tank Car Repairer Name Role Phone Linda Baeza DO Primary Care Provider +1- [phone] Reason for Visit * Reason Comments IV Therapy IVIG * Episode Based Medications (Routine) - Authorized Specialty Diagnoses / Procedures Referred By Soham joel Referred To Contact Diagnoses CLL (chronic lymphocytic leukemia) (HCC) Hypogammaglobulinemia (HCC) Procedures VT INJ IVIG PRIVIGEN 500 MG Carlos Pierre MD [address] [place] [address] Phone: tel: fax: Hematology/Oncology Treatment, [place] DEPT CLOSED - 08/20/23 [address] [place] [address] Phone: tel: fax: Referral ID Status Reason Start Date Expiration Date V isits Requested Visits Authorized [id number] Authorized 05/14/2023 04/21/2025 [id number] Encounter Details Date Type Department Care Team (Latest Contact Info) Description 08/20/2024 10:30 AM EST Hem/Onc Treatment Hematology/Oncology Treatment, [place] [address] [place] [address] Gemma, Chair 7 Hem Onc Scenery [address] [place] [address] CLL (chronic lymphocytic leukemia) (HCC)*; Hypogammaglobulinem ia ([facility]) Allergies Active Allergy Reactions Criticality Noted Date Comments Meperidine Hcl 02/19/2019 Lamotrigine Other (Please comment) Medium 07/19/2021 Causes patient to fall. Rofecoxib 11/06/2004 rash &swelling in legs, stumbling (vioxx) documented as of this encounter (statuses as of 08/20/2024) Medications NATURAL SUPPLEMENTIndica tions:Per Pt: to prevent arthritis Take by mouth. Vinegar/Honey Daily 0 0 07/12/20 05 Active Probiotic Product (PROBIOTIC ACIDOPHILUS BIOBEADS) Capsule Take 1 Capsule by mouth in the morning. Active Multiple Vitamins-Mineral s (MULTIVITAMIN MEN 50+) TABS Take by mouth 1 Tablet daily . Active Monitor 3 1000 MG Oral Capsule Take by mouth daily . Active Saline 0.65 % Nasal Solution Administer 1 Crescent into nostril as needed for Congestion. Active [...] Tablet (Acalabrutinib Maleate)Indicati ons:CLL (chronic lymphocytic leukemia) ([facility]) Take 100 mg by mouth [...] as of this encounter (statuses as of 08/20/2024) Active Problems Problem Noted Date Diagnosed Date [...] as of this encounter (statuses as of 08/20/2024) Resolved Problems Problem Noted Date Diagnosed Date [...] as of this encounter (statuses as of 08/20/2024) Immunizations Name Administration Dates Next Due COVID-19 [...] AM EST Laboratory Laboratory [place] [address] [place] [address] [place] [address] 09/17/2024 10:15 AM EST Hem/Onc Treatment Hematology/Oncology Treatment, [place] [address] [place] [address] [place], Chair 10 Hem Onc Scenery [address] [place] [address] 10/14/2024 10:00 AM EST Laboratory Laboratory [place] [address] [address] [place] [phone] [place], Lab [address] [place] [address] 10/15/2024 10:00 AM EST Hem/Onc Treatment Hematology/Oncology Treatment, [place] [address] [place] [address] Gemma, Chair 10 Hem Onc Scenery [address] [place], [place] [address] 01/07/2025 11:30 AM EDT Office Visit Hematology/Oncology [facility] [place] [address] [place], [place] [address] Carlos Pierre MD [address] [facility], [place] [address] 02/11/2025 10:00 AM EDT Nurse Only Ancillary [place] [address] [address] [place] [address] [place], Nurse Annual Wellness Cold [address] [place] [address] 03/29/2025 10:30 AM EDT Office Visit Urology Ghada Fraser [address] [place] [address] Paul Ha Jr., MD [address] [place] [address] 04/01/2025 11:00 AM EDT Office Visit Family Practice [address], [place] [address] [place] [address] Linda Baeza, [address] [place] [address] Health Maintenance Due Date Last Done Comments COVID-19 Vaccine ( season) 2024 06/10/2024, 02/07/2024, 07/11/2023, Additional history exists Albumin/Creatinine Ratio 11/27/2024 11/27/2023, 10/07 CKD PHOS USE SMARTSET 61494 11/27/2024 02/10/2023, 10/24/2022, 04/23/2021 Adult Wellness Visit 02/05/2025 02/06/2024, 12/14/19 23 GFR 02/16/2025 08/19/2024, 07/07, 06/24/2024, Additional history exists Depression Screening 07/07/2025 07/07/2024, 02/06/20 24 CKD HGB USE SMARTSET 79577 08/19/202508/19, 08/19/2024, 07/22/2024, Additional history exists DTap/Tdap [...] this encounter Medical Devices Implanted Type Area Draw Bench Operator Helper Device Identifier Shelf Expiration Date Model / Serial / Lot Intraocular Lens Implanted:Qty: 1 on 01/12/2016 by Amari Loomis MD at [facility] Right: Eye 11/06/2018 MX60+11.0 / [id number] / [id number] documented as of this encounter Visit Diagnoses [...] previous infusion reaction with IVIG, Starting on Sat08/20/24 at 1145, Until Discontinued, Maximum of 4 grams (4000 mg) per day.Indications:CLL (chronic lymphocytic leukemia) (HCC),Hypogammaglobulinemia (HCC) Given 08/20/2024 10:47 AM EST 650 mg diphenhydrAMINE (Benadryl) cap 25 mg 25 mg, Oral, ONCE PRN If previous infusion reaction with IVIG, Starting on Sat08/20/24 at 1145, Until DiscontinuedIndications:CLL (chronic lymphocytic leukemia) (HCC),Hypogammaglobulinemia (HCC) Given 08/20/2024 10:47 AM EST 25 mg diphenhydrAMINE (Benadryl) inj 50 mg 50 mg, IV Push, ONCE PRN Other, Hypersensitivity Reaction, Starting on Sat08/20/24 at 1038, Until Sat08/21/24 at 1037, For 24 hoursIndications:CLL (chronic lymphocytic leukemia) (HCC),Hypogammaglobulinemia (HCC) EPINEPHrine 1 MG/ML inj 0.3 mg 0.3 mg, Intramuscular, ONCE PRN Other, Hypersensitivity Reaction or Anaphylaxis, Starting on Sat08/20/24 at 1038, Until Sat08/21/24 at 1037, For 24 hoursIndications:CLL (chronic lymphocytic leukemia) (HCC),Hypogammaglobulinemia (HCC) hEParin 100 UNIT/ML Lock Flush inj 500 Units 500 Units (5 mL), IV Lock, PRN Other, IV Flush, Starting on Sat08/20/24 at 1038, Until Sat08/21/24 at 1037, For 24 hours, Do not flush if lock, PICC, or central line not in place; IV infusing or unable to flush.Indications:CLL (chronic lymphocytic leukemia) (HCC),Hypogammaglobulinemia (HCC) Hydrocortisone Sod Suc (PF) (Solu-Cortef) inj 100 mg 100 mg, IV Push, ONCE PRN Other, Hypersensitivity Reaction, Starting on Sat08/20/24 at 1038, Until Sat08/21/24 at 1037, For 24 hoursIndications:CLL (chronic lymphocytic leukemia) (HCC),Hypogammaglobulinemia (HCC) Immune Globulin Human-IVIG 10% (Privigen) IV 10 g 10 g, IV Piggyback, ONCE, 1 dose, On Sat08/20/24 at 1215, PRIVIGEN infusion instructions Infusion Rate [...] Administer over 10 Hours, CONTINUOUS, Starting on Sat08/20/24 at 1145, Until Sat08/20/24 at 2144Indications:CLL (chronic lymphocytic leukemia) (HCC),Hypogammaglobulinemia (HCC) Start Infusion 08/20/2024 10:40 AM EST 500 mL 100 mL/hr sodium chloride 0.9 % flush central line 10 mL 10 mL, IV Push, PRN Other, IV Flush, Starting on Sat08/20/24 at 1038, Until Sat08/21/24 at 1037, For 24 hours, Do not flush if [...] AM EST 20 g 175 mL/h r documented in this encounter Advance Directives * Full Code (Latest Code Status on File) Date Activated Date Inactivated Comments 01/12/2016 9:49 AM 01/12/2016 3:56 PM This order ref lects the patients wishes and were consensually agreed upon. Care Teams Tank Car Repairer Relationship Specialty Start Date End Date Linda Baeza DO [address] [facility] [place] [address] PCP - General Family Medicine 09/11/22 documented as of this encounter
--- OUTSIDE RECORDS SUMMARY | 2024-12-05 15:20 | External Medical Summary | Summary of Care ---
Author Name Unknown Organization [facility] Address [address] [place] [address] Phone [phone] Care Team Providers Care Dance Artist Name Role Phone Linda Baeza DO Primary Care Provider +1- [phone] Reason for Visit * Reason Comments Medication Management Encounter Details Date Type Department Care Team (Late st Contact Info) Description 08/20/2024 9:00 AM [facility] Pharmacy Pharmacy Hematology Oncology [facility] [address] [place] [address] [facility] Hem/Onc [address] [place] [address] CLL (chronic lymphocytic leukemia) ([facility])* Allergies Active Allergy Reactions Criticality Noted Date [...] by mouth 1 Tablet daily . Active Avenal 3 1000 MG Oral Capsule Take by mouth daily . Active Saline 0.65 % Nasal Solution Administer 1 Pride into nostril as needed for Congestion. Active [...] No 07/07/2024 Does the household have a [facility] source of income? (Household - [...] documented in this encounter Progress Notes * Yumiko Jovannamaggie Escobar, [facility] - 08/20/2024 9:05 AM EST MEDICATION THERAPY MANAGEMENT ACALABRUTINIB TREATMENT PROGRESS NOTE Tano Mcintyreen [phone] Patient Phone Numbers : Caitlin Specialty pharmacy: [place] Communication: Left message requesting return call to assess toleration to therapy Treatment: Medication: Acalabrutinib (Calquence) Indication: CLL Dose: 100 mg BID ( 06/14/22) Administration: +/- food Start Date: 04/30/22 Primary Potter Or Ceramic Artist/Oncologist: Dr. Ihsan Pierre Supportive Care Meds: None [...] in conjunction with IVIG infusions Admitted to [facility] 06/27/23-06/30/23 for viral pneumonia Admitted to [facility] 08/10/23-08/15/23 for respiratory distress Per TE 05/18/24, pt without acalabrutinib 05/14/24-05/17/24 due to traveling and experiencing withdrawal symptoms Per CM encounter 05/28/24, symptoms have since resolved Per TE 06/11/24, pt reports receiving annual influenza and covid boosters Per TE 07/30/24, acalabrutinib RX sent to [facility] where [facility] will help with financial assistance Per [facility] encounter 08/03/24, RX forwarded to [facility] Changes to medication list since last visit? No Assessment and Plan: WBC/ALC elevated but stable ANC WNL All other labs stable Continue current therapy and monthly labs (next due with OV) Assessment of compliance: N/A Assessment of adverse effects attributed to drug therapy: N/A Dose adjustment needed based on lab or adverse drug reaction? No Follow up: 4 weeks Jovanna Calderon, PharmD, BCOP Clinical Pharmacist, [facility] Oral Chemotherapy [facility] 08/20/2024, 2:24 PM Pertinent Labs: Latest Reference Range & Units 06/24/24 09:53 07/22/24 10:06 08/19/24 09:56 WBC 4.00 - 10.80 K/uL 14.07 (H) 12.79 (H) 13.88 (H) RBC 4.50 - 5.25 M/uL 3.66 3.80 3.81 HGB 14.0 - 16.8 g/dL 12.0 (L) 12.4 (L) 12.3 (L) HCT 40.0 - 48.4 % 37.4 (L) 39.3 (L) 39.0 (L) MCV 82.0 - 99.5 fL 102.2 103.4 102.4 MCH 27.0 - 34.0 pg 32.8 32.6 32.3 MCHC 32.0 - 36.0 g/dL 32.1 31.6 31.5 RDW 11.5 - 15.5 % 15.4 15.7 15.0 PLT 140 - 400 K/uL 174 172 152 MPV 6.6 - 11.1 fL 11.0 11.6 11.7 CBC WITH WBC DIFFERENTIAL Rpt ! Rpt ! Rpt ! Absolute Neutrophils 1.80 - 7.70 K/uL 4.78 3.07 3.89 Absolute Lymphocytes 1.00 - 4.80 K/uL 8.86 (H) 9.21 (H) 7.91 (H) Latest Reference Range & Units 06/24/24 09:53 07/22/24 10:06 08/19/24 09:56 BUN 6 - 20 mg/dL 27 (H) 27 (H) 26 (H) CREATININE 0.6 - 1.2 mg/dL 1.2 1.1 1.1 EGFR >=60 mL/min 63 68 69 Latest Reference Range & Units 06/24/24 09:53 07/22/24 10:06 08/19/24 09:56 Albumin 3.8 - 5.0 g/dL 4.2 4.2 4.2 AST 10 - 50 U/L 21 23 23 ALT 10 - 50 U/L 16 17 15 Alkaline Phosphatase 35 - 130 U/L 81 80 69 Bilirubin, Total <=1.2 mg/dL 0.3 0.2 0.3 Time Spent on Encounter: 6 - [...] Description 09/16/2024 10:00 AM EST Laboratory Laboratory [facility] [place] [address] [facility] [place] [phone] [place], Lab [facility] [address] [facility] [place] [address] 09/17/2024 9:00 AM EST Pharmacy Pharmacy Hematology Oncology [place] [address] [place] [address] [facility] Hem/Onc [address] [place] [address] 09/17/2024 10:15 AM EST Hem/Onc Treatment Hematology/Oncology Treatment, [place] [address] [place], [place] [address] [place], Chair 10 Hem Onc Scenery [address] [place] [address] 10/14/2024 10:00 AM EST Laboratory Laboratory [place] [address] [address] [place] [address] [place], Lab [address] [place] [address] 10/15/2024 10:00 AM EST [facility] [address] [place] [address] [place], Chair 10 Hem Onc [facility] [address] [facility] [place] [address] 01/07/2025 11:30 AM EDT Office Visit Hematology/Oncology [facility] [address] [place] [address] Carlos Pierre MD [address] [place] [address] 02/11/2025 10:00 AM EDT Nurse Only Ancillary [address] [address], [place] [address] [place] [address] [place], Nurse Annual Wellness Cold [address] [place] [address] 03/29/2025 10:30 AM EDT Office Visit Urology Ghada Fraser [address] [facility] [address] [place] [address] Paul Ha Jr., MD [address] [place] [address] 04/01/2025 11:00 AM EDT Office Visit Family Practice [address], [place] [address] [place] [address] Linda Baeza, [address] [place] [address] Health Maintenance Due Date Last Done Comments COVID-19 Vaccine ( season) 2024 06/10/2024, 02/07/2024, 07/11/2023, Additional history exists Albumin/Creatinine Ratio 11/27/2024 11/27/2023, 10/07 CKD PHOS USE SMARTSET 81522 11/27/2024 02/10/2023, 10/24/2022, 04/23/2021 Adult Wellness Visit 02/05/2025 02/06/2024, 12/14/19 23 GFR 02/16/2025 08/19/2024, 07/07, 06/24/2024, Additional history exists Depression Screening 07/07/2025 07/07/2024, 02/06/20 24 CKD HGB USE SMARTSET 55269 08/19/202508/19, 08/19/2024, 07/22/2024, Additional history exists DTap/Tdap [...] this encounter Medical Devices Implanted Type Area Instructor Modeling Device Identifier Shelf Expiration Date Model / Serial / Lot Intraocular Lens Implanted:Qty: 1 on 01/12/2016 by Amari Loomis MD at OR [facility] Right: Eye 11/06/2018 MX60+11.0 / [id number] / [id number] documented as of this encounter Visit Diagnoses Diagnosis CLL (chronic lymphocytic leukemia) (HCC)- Primary Chronic lymphoid leukemia, without mention of having achieved remission documented in this encounter Advance Directives * Full Code (Latest Code Status on File) Date Activated Date Inactivated Comments 01/12/2016 9:49 AM 01/12/2016 3:56 PM This order ref lects the patients wishes and were consensually agreed upon. Care Teams Dance Artist Relationship Specialty Start Date End Date Linda Baeza DO [address] [facility] [place] [address] PCP - General Family Medicine 09/11/22 documented as of this encounter
--- OUTSIDE RECORDS SUMMARY | 2024-12-05 15:20 | External Medical Summary | Summary of Care ---
Author Name Unknown Organization [facility] Address [address] [place] [address] Phone [phone] Care Team Providers Care Computer Networking Instructor Name Role Phone Linda Baeza DO Primary Care Provider +1- [phone] Reason for Visit * Reason Comments Medication Administration IVIG * Episode Based Medications (Routine) - Authorized Specialty Diagnoses / Procedures Referred By Soham t Referred To Contact Diagnoses CLL (chronic lymphocytic leukemia) (HCC) Hypogammaglobulinemia (HCC) Procedures AL INJ IVIG PRIVIGEN 500 MG Carlos Pierre MD [address] [facility] [place] [address] Phone: tel: fax: Hematology/Oncology Treatment, [place] DEPT CLOSED - 08/20/23 [address] [facility] [place] [address] Phone: tel: fax: Referral ID Status Reason Start Date Expiration Date V isits Requested Visits Authorized [id number] Authorized 05/14/2023 04/21/2025 [id number] Encounter Details Date Type Department Care Team (Latest Contact Info) Description 07/23/2024 11:15 AM EDT Hem/Onc Treatment Hematology/Oncology Treatment, [place] [address] [place] [address] Gemma, Chair 9 Hem Onc Scenery [address] [facility] [place] [address] CLL (chronic lymphocytic leukemia) (HCC)*; Hypogammaglobulinem ia ([facility]) Allergies Active Allergy Reactions Criticality [...] by mouth 1 Tablet daily . Active Lyn[place] 3 1000 MG Oral Capsule Take by mouth daily . Active Saline 0.65 % Nasal Solution Administer 1 [place] into nostril as needed for Congestion. Active [...] Oral Capsule (Calquence)Kaylee cations:CLL (chronic lymphocytic leukemia) ([facility]) Take 100 mg by mouth [...] mRNA, LNP-s, No Pre serve, 2-Dose Series ([employer]) 06/07/2021,12/14/2020,11/23/2020 COVID-19, LNP-s, No Preserve , William-sucrose, [...] Description 08/19/2024 10:00 AM EST Laboratory Laboratory [facility] [place] [address] [facility] [address] [place] [facility] [address] [facility] [place] [place] [address] 08/20/2024 9:00 AM EST Pharmacy Pharmacy Hematology Oncology [facility] [place] [address] [place] [address] [facility] Hem/Onc [address] [place] [address] 08/20/2024 10:30 AM EST Hem/Onc Treatment Hematology/Oncology Treatment, [place] [address] [place] [phone] Chair Gemma 7 Hem Onc Scenery [address] [place], [place] [address] 09/16/2024 10:00 AM EST Laboratory Laboratory [address] [place] [phone] [place], [address] [place] [address] 09/17/2024 10:15 AM EST Hem[facility] 200 [facility], [place] [phone] Park, Chair 10 Hem Onc Scenery 200 [facility] [place], [place] [address] 10/14/2024 10:00 AM EST Laboratory Laboratory [address] [place] [phone] [place], [address] [place] [address] 10/15/2024 10:00 AM EST Hem[facility]Onc [facility] 200 [facility], [place] [phone] Gemma, Chair 10 Hem Onc Scenery [address] [facility] [place], [place] [address] 01/07/2025 11:30 AM EDT Office Visit Hematology/Oncology [facility] [place] [address] [facility] [place], [place] [phone] Carlos Pierre MD [address] [place], [place] [address] 02/11/2025 10:00 AM EDT Nurse Only Ancillary [address], [place] [address] [place] [address] [place], Nurse Annual Wellness Cold [address] [place] [address] 03/29/2025 10:30 AM EDT Office Visit Urology Ghada Fraser [address] [place] [address] Paul Ha Jr., MD [address] [place] [address] 04/01/2025 11:00 AM EDT Office Visit [facility] [address], [place] [address] [place] [address] Linda Baeza DO [address] [place] [address] Health Maintenance Due Date Last Done Comments COVID-19 Vaccine ( season) 2024 06/10/2024, 02/07/2024, 07/11/2023, Additional history exists Albumin/Creatinine Ratio 11/27/2024 11/27/2023, 10/07 CKD PHOS USE SMARTSET 12344 11/27/202411/08, 10/24/2022, 04/23/2021 GFR 01/20/2025 07/22/2024, 06/07, 05/27/2024, Additional history exists Adult Wellness Visit 02/05/2025 02/06/2024, 12/14/19 23 Depression Screening 07/07/2025 07/07/2024, 02/06/20 24 CKD HGB USE SMARTSET 93175 07/22/202507/22, 07/22/2024, 06/24/2024, Additional history exists DTap/Tdap [...] this encounter Medical Devices Implanted Type Area Transplant Nurse Device Identifier Shelf Expiration Date Model / Serial / Lot Intraocular Lens Implanted:Qty: 1 on 01/12/2016 by Amari Loomis MD at OR [facility] Right: Eye 11/06/2018 MX60+11.0 / [id number] documented as of this encounter Visit Diagnoses [...] and were consensually agreed upon. Care Teams Computer Networking Instructor Relationship Specialty Start Date End Date Linda Baeza DO [address] [facility] [place] [phone] PCP - General Family Medicine 09/11/22 documented as of this encounter
--- OUTSIDE RECORDS SUMMARY | 2024-12-05 15:20 | External Medical Summary ---
Author Name Unknown Address Unknown Organization K01:LAB[facility]ATORY [facility] - [address] [facility] [address] Laboratory Report Ordering Provider Test Date Status KASSIDY RADFORD 08/19/2024 09:56:53 Final Observation Date Value Abnormality Reference (Units ) Status BUN 08/19/2024 09:56:53 26 Above high normal 6-20 (mg/dL) Final Creatinine 08/19/2024 09:56:53 1.1 0.6-1.2 (mg/dL) Final Glomerular filtration rate/1.73 sq M.predicted [Volume Rate/Area] in Serum, Plasma or Blood by Creatinine-based formula (CKD-EPI) 08/19/2024 09:56:53 69 >=60 (mL/min) Final eGFR is calculated based on the CKD-EPI 2020 equation. Sodium 08/19/2024 09:56:53 141 135-146 (m mol/L) Final Potassium 08/19/2024 09:56:53 4.5 3.5-5.1 (m mol/L) Final Cl 08/19/2024 09:56:53 107 98-107 (mm ol/L) Final CO2 08/19/2024 09:56:53 24 22-32 (mmo l/L) Final Anion gap 08/19/2024 09:56:53 10 7-15 (mmol /L) Final Glucose 08/19/2024 09:56:53 100 70-120 (mg /dL) Final Albumin 08/19/2024 09:56:53 4.2 3.8-5.0 (g /dL) Final AST (Aspartate aminotransferase) 08/19/2024 09:56:53 23 10-50 (U/L) Final Alk Phos 08/19/2024 09:56:53 69 35-130 (U/ L) Final Bilirubin, Total 08/19/2024 09:56:53 0.3 <=1 .2 (mg/dL) Final Calcium 08/19/2024 09:56:53 10.2 8.4-10.2 ( mg/dL) Final Protein 08/19/2024 09:56:53 6.2 6.0-8.3 (g /dL) Final ALT (Alanine aminotransferase) 08/19/2024 09:56:53 15 10-50 (U/L) Final Performing Location [facility]ORY [facility] - [facility] [address]. [facility] [address]
--- OUTSIDE RECORDS SUMMARY | 2024-12-05 15:20 | External Medical Summary ---
Author Name Unknown Address Unknown Organization K01:LABORATORY C - [address] [place] [address] Laboratory Report Ordering Provider Test Date Status KASSIDY RADFORD 08/19/2024 09:56:53 Final Observation Date Value Abnormality Reference (Units ) Status IgG 08/19/2024 09:56:53 681 136-5708 ( mg/dL) Final IgA 08/19/2024 09:56:53 50 Below low normal 70- 400 (mg/dL) Final IgM 08/19/2024 09:56:53 <5 Below low normal 40- 230 (mg/dL) Final Performing Location LABORATORY [facility] - [address] [place] [address]
--- OUTSIDE RECORDS SUMMARY | 2024-12-05 15:20 | External Medical Summary | Summary of Care ---
Author Name Unknown Organization [facility] Address [address] [place] [address] Phone [phone] Care Team Providers Care Computational Geneticist Name Role Phone Linda Baeza DO Primary Care Provider +1- [phone] Reason for Visit * Reason Comments Medication Administration IVIG * Episode Based Medications (Routine) - Authorized Specialty Diagnoses / Procedures Referred By Soham t Referred To Contact Diagnoses CLL (chronic lymphocytic leukemia) (HCC) Hypogammaglobulinemia (HCC) Procedures IN INJ IVIG PRIVIGEN 500 MG Carlos Pierre MD 200 [facility] [place] [address] Phone: tel: fax: Hematology/Oncology Treatment, [place] DEPT CLOSED - 08/20/23 200 [facility] [place] [address] Phone: tel: fax: Referral ID Status Reason Start Date Expiration Date V isits Requested Visits Authorized [id number] Authorized 05/14/2023 04/21/[id number] Encounter Details Date Type Department Care Team (Latest Contact Info) Description 07/23/2024 11:15 AM EDT Hem/Onc Treatment Hematology/Oncology Treatment, [place] [address] [place] [address] Gemma, Chair 9 Hem Onc Scenery 200 [facility] [place] [address] CLL (chronic lymphocytic leukemia) (HCC)*; Hypogammaglobulinem ia ([facility]) Allergies Active Allergy Reactions Criticality Noted [...] by mouth 1 Tablet daily . Active [place] 3 1000 MG Oral Capsule Take by mouth daily . Active Saline 0.65 % Nasal Solution Administer 1 [place] into nostril as needed for Congestion. Active [...] (Calquence)Kaylee cations:CLL (chronic lymphocytic leukemia) ([facility]) Take 100 mg by mouth in [...] mRNA, LNP-s, No Pre serve, 2-Dose Series (Spinomix) 06/07/2021,12/14/2020,11/23/2020 COVID-19, LNP-s, No Preserve , William-sucrose, [...] Description 08/19/2024 10:00 AM EST Laboratory Laboratory [facility] [place] [address] [facility] [phone] [place] [facility] [address] [place] [address] 08/20/2024 9:00 AM EST Pharmacy Pharmacy Hematology Oncology [facility] [place] [address] [place] [address] [facility], [facility] Hem/Onc [address] [place] [address] 08/20/2024 10:30 AM EST Hem/Onc Treatment Hematology/Oncology Treatment, [place] [address] [place] [phone] Chair Gemma 7 Hem Onc Scenery [address] [place], [place] [address] 09/16/2024 10:00 AM EST Laboratory Laboratory [address] [place] [phone] [place], Lab [address] [place] [address] 09/17/2024 10:15 AM EST [facility] 200 [facility], [place] [phone] Park, Chair 10 Hem Onc Scenery 200 [facility] [place], [place] [address] 10/14/2024 10:00 AM EST Laboratory Laboratory [address] [place] [phone] [place], Lab [address] [place] [address] 10/15/2024 10:00 AM EST Hem[facility]Onc [facility] 200 [facility], [place] [phone] Gemma, Chair 10 Hem Onc Scenery 200 [facility] [place], [place] [address] 01/07/2025 11:30 AM EDT Office Visit Hematology/Oncology [facility] [place] 200 [facility] [place], [place] [phone] Carlos Pierre MD [address] [place], [place] [address] 02/11/2025 10:00 AM EDT Nurse Only Ancillary [address], [place] [address] [place] [address] [place], Nurse Annual Wellness Cold [address] [place] [address] 03/29/2025 10:30 AM EDT Office Visit Urology Ghada Fraser [address] [place] [address] Paul Ha Jr., MD [address] [place] [address] 04/01/2025 11:00 AM EDT Office Visit [facility] [address], [place] [address] [place] [address] Linda Baeza DO [address] [place] [address] Health Maintenance Due Date Last Done Comments COVID-19 Vaccine ( season) 2024 06/10/2024, 02/07/2024, 07/11/2023, Additional history exists Albumin/Creatinine Ratio 11/27/2024 11/27/2023, 10/07 CKD PHOS USE SMARTSET 14539 11/27/202411/08, 10/24/2022, 04/23/2021 GFR 01/20/2025 07/22/2024, 06/07, 05/27/2024, Additional history exists Adult Wellness Visit 02/05/2025 02/06/2024, 12/14/19 23 Depression Screening 07/07/2025 07/07/2024, 02/06/20 24 CKD HGB USE SMARTSET 95697 07/22/202507/22, 07/22/2024, 06/24/2024, Additional history exists DTap/Tdap [...] this encounter Medical Devices Implanted Type Area Wood Products Manufacturer Device Identifier Shelf Expiration Date Model / Serial / Lot Intraocular Lens Implanted:Qty: 1 on 01/12/2016 by Amari Loomis MD at OR [facility] Right: Eye 11/06/2018 MX60+11.0 / [id number] / [id number] documented as of this encounter Visit Diagnoses [...] and were consensually agreed upon. Care Teams Computational Geneticist Relationship Specialty Start Date End Date Linda Baeza DO [address] [facility] [place] [phone] PCP - General Family Medicine 09/11/22 documented as of this encounter
--- OUTSIDE RECORDS SUMMARY | 2024-12-05 15:20 | External Medical Summary ---
Author Name Unknown Address Unknown Organization K01:LAB[facility]ATORY [facility] - [address] [place] [address] Laboratory Report Ordering Provider Test Date Status KASSIDY RADFORD 08/19/2024 09:56:53 Final Observation Date Value Abnormality Reference (Units ) Status WBC, Total 08/19/2024 09:56:53 13.88 Above high normal 4.00-10.80 (K/uL) Final RBC 08/19/2024 09:56:53 3.81 4.50-5.25 (M/uL) Final Hemoglobin 08/19/2024 09:56:53 12.3 Below low normal 14.0-16.8 (g/dL) Final HCT 08/19/2024 09:56:53 39.0 Below low normal 40.0-48.4 (%) Final MCV 08/19/2024 09:56:53 102.4 82.0-99.5 (fL) Final MCH 08/19/2024 09:56:53 32.3 27.0-34.0 (pg) Final MCHC 08/19/2024 09:56:53 31.5 32.0-36.0 (g/dL) Final RDW 08/19/2024 09:56:53 15.0 11.5-15.5 (%) Final Platelets 08/19/2024 09:56:53 152 140-400 (K/uL) Final MPV 08/19/2024 09:56:53 11.7 6.6-11.1 (fL) Final Nucleated erythrocytes/100 leukocytes [Ratio] in Blood by Automated count 08/19/2024 09:56:53 0 <=0 (/100 WBCs) Final Performing Location [facility] [place] [address] [place] [address]
--- OUTSIDE RECORDS SUMMARY | 2024-12-05 15:20 | External Medical Summary | Summary of Care ---
Author Name Unknown Organization [facility] Address [address] [place] [address] Phone [phone] Care Team Providers Care Camp Guard Name Role Phone Linda Baeza Primary Care Provider +1- [phone] Reason for Visit * Reason Comments eRx-Medication Refill Encounter Details Date Type Department Care Team (Late st Contact Info) Description 08/07/2024 Refill Urology Ghada Fraser [address] [place] [address] Paul Ha Jr., MD 27 [place] [address] Allergies Active Allergy Reactions Criticality Noted Date Comments Meperidine Hcl 02/19/2019 Lamotrigine Other (Please comment) Medium 07/19/2021 Causes patient to fall. Rofecoxib 11/06/2004 rash &swelling in legs, stumbling (vioxx) documented as of this encounter (statuses as of 08/10/2024) Medications Medication Sig Dispensed Refills Start Date End Date Status NATURAL SUPPLEMENTIndicat ions:Per Pt: to prevent arthritis Take by mouth. Vinegar/Honey Daily 0 0 5 Active Probiotic Product (PROBIOTIC ACIDOPHILUS BIOBEADS) Capsule Take 1 Capsule by mouth in the morning. Active Multiple Vitamins-Minerals (MULTIVITAMIN MEN 50+) TABS Take by mouth 1 Tablet daily . Active [place] 3 1000 MG Oral Capsule Take by mouth daily . Active Saline 0.65 % Nasal Solution Administer 1 [place] into nostril as needed for Congestion. Active [...] MOUTH EVERY DAY 180 Each 2 4 Active Fluticasone Propionate 50 MCG/ACT Nasal SuspensionIndicat ions:Asthma, moderate persistent Administer 2 Sprays into nostril in the morning. Each nostril. 16 g 1 4 Active ICaps AREDS Formula Oral Tablet Take 1 Tablet by mouth in the morning and 1 Tablet before bedtime. Active Calquence 100 MG Oral Tablet (Acalabrutinib Maleate)Indicatio ns:CLL (chronic lymphocytic leukemia) (HCC) Take 100 mg by mouth in the morning and 100 mg before bedtime. 60 Tablet 11 4 Active Finasteride 5 MG Oral Tablet (Proscar) Take 1 Tablet by mouth in the morning. 90 Tablet 4 Active Finasteride 5 MG Oral Tablet (Proscar) Take 1 Tablet by mouth in the morning. 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[facility]),Bronchiectasis with acute exacerbation (HCC) 2.5 mg NEBULIZER ONCE PRN 08/21/2023 08/20/2024 Active documented as of this encounter (statuses as of 08/10/2024) Active Problems Problem Noted Date Diagnosed Date [...] as of this encounter (statuses as of 08/10/2024) Resolved Problems Problem Noted Date Diagnosed Date [...] as of this encounter (statuses as of 08/10/2024) Immunizations Name Administration Dates Next Due COVID-19 mRNA, LNP-s, No Pre serve, 2-Dose Series (Applix) 06/07/2021,12/14/2020,11/23/2020 COVID-19, LNP-s, No Preserve , William-sucrose, [...] encounter Miscellaneous Notes * Telephone Encounter - Paul Ha Jr., MD - 08/10/2024 7:18 AM EST Signed Prescriptions: Disp Refills Finasteride 5 MG Oral Tablet (Proscar) 90 Tab*0 Sig: Take 1 Tablet by mouth in the morning. Authorizing Provider: PAUL HA JR * Telephone Encounter - Interface, E-Rx Ss Inbound - 08/09/2024 8:40 AM EST Pending Prescriptions: Disp Refills Finasteride 5 MG Oral Tablet [Pharmacy Med*90 Tab*0 Sig: Take 1 Tablet by mouth in the morning. * Telephone Encounter - Allie Mcfadden LPN - 08/07/2024 10:45 AM EDTPending Prescriptions: Disp Refills Finasteride 5 MG Oral Tablet [Pharmacy Med*90 Tab*0 Sig: Take 1 Tablet by mouth in the morning. * Telephone Encounter - Allie Mcfadden LPN - 08/07/2024 10:45 AM EDT Automatic refill request from pharmacy for Finasteride. 03/16/2024 03/29/2025 Review of patient's allergies indicates: Allergen Reactions Lamictal [Lamotrigine] Other (Please comment) Causes patient to fall. Demerol [Meperidine Hcl] Rofecoxib rash &swelling in legs, stumbling (vioxx) documented in this encounter Plan of Treatment Upcoming Encounters Date Type Department Care Team (Late st Contact Info) Description 08/19/2024 10:00 AM EST Laboratory Laboratory [facility] [place] [place] [address] [facility] [place] [place] [phone] [place] [facility] [address] [facility] [place] [place] [address] 08/20/2024 9:00 AM EST Pharmacy Pharmacy Hematology Oncology [place] [address] [place] [address] [facility] Hem/Onc [address] [place] [address] 08/20/2024 10:30 AM EST Hem/Onc Treatment Hematology/Oncology Treatment, [place] [address] [place] [address] Gemma, Chair 7 Hem Onc Scenery 200 [place] [address] 09/16/2024 10:00 AM EST Laboratory Laboratory [place] [address] [place] [phone] [place], Lab [address] [place] [address] 09/17/2024 10:15 AM EST Hem/Onc Treatment Hematology/Oncology Treatment, [place] 200 [facility], [place] [phone] Gemma, Chair 10 Hem Onc Scenery 200 [facility] [place], [place] [address] 10/14/2024 10:00 AM EST Laboratory Laboratory [address] [place] [phone] [place], Lab [address] [place] [address] [place], [place] [address] 10/15/2024 10:00 AM EST Hem[facility] 200 [facility], [place] [phone] [place], Chair 10 Hem Onc [facility] 200 [facility] [place], [place] [address] 01/07/2025 11:30 AM EDT Office Visit Hematology/Oncology [facility] [place] [address] [place], [place] [phone] Carlos Pierre MD 200 [place] [address] 02/11/2025 10:00 AM EDT Nurse Only Ancillary [address], [place] [address] [place] [address] [place], Nurse Annual Wellness Cold [address] [place] [phone] 03/29/2025 10:30 AM EDT Office Visit Urology Ghada Fraser [address] [place] [address] Paul Ha Jr., MD [address] [place] [address] 04/01/2025 11:00 AM EDT Office Visit [facility] [address], [place] [address] [place] [address] Linda Baeza, [address] [place] [id number] Health Maintenance Due Date Last Done Comments COVID-19 Vaccine ( season) 2024 06/10/2024, 02/07/2024, 07/11/2023, Additional history exists Albumin/Creatinine Ratio 11/27/2024 11/27/2023, 10/07 CKD PHOS USE SMARTSET 13632 11/27/202411/08, 10/24/2022, 04/23/2021 GFR 01/20/2025 07/22/2024, 06/07, 05/27/2024, Additional history exists Adult Wellness Visit 02/05/2025 02/06/2024, 12/14/19 23 Depression Screening 07/07/2025 07/07/2024, 02/06/20 24 CKD HGB USE SMARTSET 51399 07/22/202507/22, 07/22/2024, 06/24/2024, Additional history exists DTap/Tdap [...] this encounter Medical Devices Implanted Type Area Dinkey Engine Operator Device Identifier Shelf Expiration Date Model / Serial / Lot Intraocular Lens Implanted:Qty: 1 on 01/12/2016 by Amari Loomis MD at OR [facility] Right: Eye 11/06/2018 MX60+11.0 / [id number] / [id number] documented as of this encounter Advance Directives * Full Code (Latest Code Status on File) Date Activated Date Inactivated Comments 01/12/2016 9:49 AM 01/12/2016 3:56 PM This order ref lects the patients wishes and were consensually agreed upon. Care Teams Camp Guard Relationship Specialty Start Date End Date Linda Baeza DO [address] [facility] [place] [place] [address] PCP - General Family Medicine 09/11/22 documented as of this encounter
--- OUTSIDE RECORDS SUMMARY | 2024-12-05 15:20 | External Medical Summary | Summary of Care ---
Author Name Unknown Organization [facility] Address [address] [place] [address] Phone [phone] Care Team Providers Care Heating And Air Conditioning Mechanic Name Role Phone Linda Baeza DO Primary Care Provider +1- [phone] Reason for Visit * Reason Comments Medication Administration IVIG * Episode Based Medications (Routine) - Authorized Specialty Diagnoses / Procedures Referred By Soham t Referred To Contact Diagnoses CLL (chronic lymphocytic leukemia) (HCC) Hypogammaglobulinemia (HCC) Procedures PA INJ IVIG PRIVIGEN 500 MG Carlos Pierre MD 200 [facility] [place] [address] Phone: tel: fax: Hematology/Oncology Treatment, [place] DEPT CLOSED - 08/20/23 200 [facility] [place] [address] Phone: tel: fax: Referral ID Status Reason Start Date Expiration Date V isits Requested Visits Authorized [id number] Authorized 05/14/2023 04/21/2025 [id number] Encounter Details Date Type Department Care Team (Latest Contact Info) Description 07/23/2024 11:15 AM EDT Hem/Onc Treatment Hematology/Oncology Treatment, [place] [address] [place] [address] Gemma, Chair 9 Hem Onc Scenery 200 [facility] [place] [address] CLL (chronic [...] by mouth 1 Tablet daily . Active [place] 3 1000 MG Oral Capsule Take by mouth daily . Active Saline 0.65 % Nasal Solution Administer 1 [place] into nostril as needed for Congestion. Active [...] Oral Capsule (Calquence)Kaylee cations:CLL (chronic lymphocytic leukemia) ([facility] [...] mRNA, LNP-s, No Pre serve, 2-Dose Series (Opicos) 06/07/2021,12/14/2020,11/23/2020 COVID-19, LNP-s, No Preserve , William-sucrose, [...] Description 08/19/2024 10:00 AM EST Laboratory Laboratory [facility] [place] [address] [facility] [address] [place] [facility] [address] [place] [address] 08/20/2024 9:00 AM EST Pharmacy Pharmacy Hematology Oncology [facility] [place], [place] [address] [place] [address] [facility], [facility] Hem/Onc [address] [place] [address] 08/20/2024 10:30 AM EST Hem/Onc Treatment Hematology/Oncology Treatment, [place] [address] [place] [phone] Chair Gemma 7 Hem Onc Scenery [address] [place], [place] [address] 09/16/2024 10:00 AM EST Laboratory Laboratory [address] [place] [address] [place], [address] [place] [address] 09/17/2024 10:15 AM EST [facility] 200 [facility], [place] [phone] Park, Chair 10 Hem Onc Scenery 200 [facility] [place], [place] [address] 10/14/2024 10:00 AM EST Laboratory Laboratory [address] [place] [phone] [place], [address] [place] [address] 10/15/2024 10:00 AM EST Hem[facility] 200 [facility], [place] [phone] Gemma, Chair 10 Hem Onc Scenery 200 [facility] [place], [place] [address] 01/07/2025 11:30 AM EDT Office Visit Hematology/Oncology [facility] [place] 200 [facility] [place], [place] [phone] Carlos Pierre MD [address] [place], [place] [address] 02/11/2025 10:00 AM EDT Nurse Only Ancillary [address], [place] [address] [place] [address] [place], Nurse Annual Wellness Cold [address] [place] [address] 03/29/2025 10:30 AM EDT Office Visit Urology Ghada Fraser [address] [place] [address] Paul Ha Jr., MD [address] [place] [address] 04/01/2025 11:00 AM EDT Office Visit [facility] [address], [place] [address] [place] [address] Linda Baeza DO [address] [place] [address] Health Maintenance Due Date Last Done Comments COVID-19 Vaccine ( season) 2024 06/10/2024, 02/07/2024, 07/11/2023, Additional history exists Albumin/Creatinine Ratio 11/27/2024 11/27/2023, 10/07 CKD PHOS USE SMARTSET 22679 11/27/202411/08, 10/24/2022, 04/23/2021 GFR 01/20/2025 07/22/2024, 06/07, 05/27/2024, Additional history exists Adult Wellness Visit 02/05/2025 02/06/2024, 12/14/19 23 Depression Screening 07/07/2025 07/07/2024, 02/06/20 24 CKD HGB USE SMARTSET 86888 07/22/202507/22, 07/22/2024, 06/24/2024, Additional history exists DTap/Tdap [...] this encounter Medical Devices Implanted Type Area Lead Painter Device Identifier Shelf Expiration Date Model / Serial / Lot Intraocular Lens Implanted:Qty: 1 on 01/12/2016 by Amari Loomis MD at [facility] Right: Eye 11/06/2018 MX60+11.0 / [id number] / [id number] documented as of this encounter Visit Diagnoses [...] and were consensually agreed upon. Care Teams Heating And Air Conditioning Mechanic Relationship Specialty Start Date End Date Linda Baeza DO [address] [facility] [place] [id number] PCP - General Family Medicine 09/11/22 documented as of this encounter
--- OUTSIDE RECORDS SUMMARY | 2024-12-05 15:20 | External Medical Summary | Summary of Care ---
Author Name Unknown Organization [facility] Address [address] [place] [address] Phone [phone] Care Team Providers Care Food Dehydrator Operator Name Role Phone Linda Baeza DO Primary Care Provider +1- [phone] Reason for Visit * Reason Comments IV Therapy IVIG * Episode Based Medications (Routine) - Authorized Specialty Diagnoses / Procedures Referred By Soham joel Referred To Contact Diagnoses CLL (chronic lymphocytic leukemia) (HCC) Hypogammaglobulinemia (HCC) Procedures DE INJ IVIG PRIVIGEN 500 MG Carlos Pierre MD [address] [place] [address] Phone: tel: fax: Hematology/Oncology Treatment, [place] DEPT CLOSED - 08/20/23 [address] [place] [address] Phone: tel: fax: Referral ID Status Reason Start Date Expiration Date V isits Requested Visits Authorized [id number] Authorized 05/14/2023 04/21/[phone] Encounter Details Date Type Department Care Team (Latest Contact Info) Description 08/20/2024 10:30 AM EST Hem/Onc Treatment Hematology/Oncology Treatment, [place] [address] [place] [address] Gemma, Chair 7 Hem Onc Scenery [address] [place] [address] CLL (chronic lymphocytic leukemia) (HCC)*; Hypogammaglobulinem ia ([facility]) Allergies Active Allergy Reactions Criticality Noted Date Comments Meperidine Hcl 02/19/2019 Lamotrigine Other (Please comment) Medium 07/19/2021 Causes patient to fall. Rofecoxib 11/06/2004 rash &swelling in legs, stumbling (vioxx) documented as of this encounter (statuses as of 08/22/2024) Medications NATURAL SUPPLEMENTIndica tions:Per Pt: to prevent arthritis Take by mouth. Vinegar/Honey Daily 0 0 07/12/20 05 Active Probiotic Product (PROBIOTIC ACIDOPHILUS BIOBEADS) Capsule Take 1 Capsule by mouth in the morning. Active Multiple Vitamins-Mineral s (MULTIVITAMIN MEN 50+) TABS Take by mouth 1 Tablet daily . Active [place] 3 1000 MG Oral Capsule Take by mouth daily . Active Saline 0.65 % Nasal Solution Administer 1 [place] into nostril as needed for Congestion. Active [...] (Acalabrutinib Maleate)Indicati ons:CLL (chronic lymphocytic leukemia) ([facility]) Take 100 mg by mouth in the [...] as of this encounter (statuses as of 08/22/2024) Active Problems Problem Noted Date Diagnosed Date [...] as of this encounter (statuses as of 08/22/2024) Resolved Problems Problem Noted Date Diagnosed Date [...] as of this encounter (statuses as of 08/22/2024) Immunizations Name Administration Dates Next Due COVID-19 [...] Description 09/16/2024 10:00 AM EST Laboratory [place] [address] [place] [address] [place] [address] 09/17/2024 9:00 AM EST Pharmacy Pharmacy Hematology Oncology [address] [id number] [facility] Hem/Onc [address] [place] [address] 09/17/2024 10:15 AM EST [facility] 200 [facility] [place] [phone] Gemma, Chair 10 Hem Onc Scenery 200 [facility] [place] [address] 10/14/2024 10:00 AM EST Laboratory Laboratory [address] [address] [place] [address] [place] [phone] [place], Lab [address] [address] [place] [address] 10/15/2024 10:00 AM EST [facility] 200 [facility], [place] [phone] Gemma, Chair 10 Hem Onc [facility] [address] [place] [address] [place], [place] [address] 01/07/2025 11:30 AM EDT Office Visit Hematology/Oncology [facility] [place] 200 [facility] [place] [address] Carlos Pierre MD 200 [facility] [place], [place] [address] 02/11/2025 10:00 AM EDT Nurse Only Ancillary [address], [place] [address] [place] [address] [place], Nurse Annual Wellness Cold [address] [place] [address] 03/29/2025 10:30 AM EDT Office Visit UrologGhada Cedillo [address] [place] [phone] Paul Ha Jr., MD 27 [place] [address] 04/01/2025 11:00 AM EDT Office Visit Family [facility] [address], [place] [address] [place] [address] Linda Baeza DO [address] [place] [phone] Health Maintenance Due Date Last Done Comments COVID-19 Vaccine ( season) 2024 06/10/2024, 02/07/2024, 07/11/2023, Additional history exists Albumin/Creatinine Ratio 11/27/2024 11/27/2023, 10/07 CKD PHOS USE SMARTSET 44330 11/27/202411/08, 10/24/2022, 04/23/2021 Adult Wellness Visit 02/05/2025 02/06/2024, 12/14/19 23 GFR 02/16/2025 08/19/2024, 07/07, 06/24/2024, Additional history exists Depression Screening 07/07/2025 07/07/2024, 02/06/20 24 CKD HGB USE SMARTSET 73060 08/19/202508/19, 08/19/2024, 07/22/2024, Additional history exists DTap/Tdap [...] this encounter Medical Devices Implanted Type Area Gantry Crane Operator Device Identifier Shelf Expiration Date Model / Serial / Lot Intraocular Lens Implanted:Qty: 1 on 01/12/2016 by Amari Loomis MD at OR [facility] Right: Eye 11/06/2018 MX60+11.0 / [id number] / [id number] documented as of this encounter Visit Diagnoses [...] and were consensually agreed upon. Care Teams Food Dehydrator Operator Relationship Specialty Start Date End Date Linda Baeza DO [address] [facility] [place] [id number] PCP - General Family Medicine 09/11/22 documented as of this encounter
--- OUTSIDE RECORDS SUMMARY | 2024-12-05 15:21 | External Medical Summary | Summary of Care ---
Author Name Unknown Organization [facility] Address [address] [place] [address] Phone [phone] Care Team Providers Care J2Ee Developer Name Role Phone AryanBradenLindarey Sharma DO Primary Care Provider +1- [phone] Reason for Visit * Reason Onset Date Comments Advice 07/30/2024 Dr. Pierre Encounter Details Date Type Department Care Team (Late st Contact Info) Description 07/30/2024 Telephone Hematology/Oncology [facility] 200 [facility] [place] [phone] Carlos Pierre MD 200 [place] [address] Advice (Dr. Pierre ) Allergies Active Allergy Reactions Criticality Noted Date Comments Meperidine Hcl 02/19/2019 Lamotrigine Other (Please comment) Medium 07/19/2021 Causes patient to fall. Rofecoxib 11/06/2004 rash &swelling in legs, stumbling (vioxx) documented as of this encounter (statuses as of 07/31/2024) Medications Medication Sig Dispensed Refills Start Date End Date Status NATURAL SUPPLEMENTIndicat ions:Per Pt: to prevent arthritis Take by mouth. Vinegar/Honey Daily 0 0 07/12/2005 Active Probiotic Product (PROBIOTIC ACIDOPHILUS BIOBEADS) Capsule Take 1 Capsule by mouth in the morning. Active Multiple Vitamins-Minerals (MULTIVITAMIN MEN 50+) TABS Take by mouth 1 Tablet daily . Active [place] 3 1000 MG Oral Capsule Take by mouth daily . Active Saline 0.65 % Nasal Solution Administer 1 [place] into nostril as needed for Congestion. Active [...] bedtime. Active Acalabrutinib 100 MG Oral Capsule (Calquence)Indica tions:CLL (chronic lymphocytic leukemia) (HCC) Take 100 mg by mouth in the morning and 100 mg before bedtime. With or without food. 60 Capsule 11 07/31/2024 Active Acalabrutinib 100 MG Oral Capsule (Calquence)Indica tions:CLL (chronic lymphocytic leukemia) (HCC) Take 100 mg by mouth in the morning and 100 mg before bedtime. With or without food. 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[facility]),Bronchiectasis with acute exacerbation ([facility]) 2.5 mg NEBULIZER ONCE PRN 08/21/2023 08/20/2024 Active documented as of this encounter (statuses as of 07/31/2024) Active Problems Problem Noted Date Diagnosed Date [...] as of this encounter (statuses as of 07/31/2024) Resolved Problems Problem Noted Date Diagnosed Date [...] as of this encounter (statuses as of 07/31/2024) Immunizations Name Administration Dates Next Due COVID-19 mRNA, LNP-s, No Pre serve, 2-Dose Series (Lyft) 06/07/2021,12/14/2020,11/23/2020 COVID-19, LNP-s, No Preserve , William-sucrose, Ages 12+ (Lyft) 02/08/2022 COVID-19, MRNA-LNP, 24-25, P F, 50 [...] encounter Miscellaneous Notes * Addendum Note - Andrade Calderon RPh - 07/31/2024 2:37 PM EDTAddended by: ANDRADE CALDERON on: 07/31/2024 02:37 PM Modules accepted: Orders * Telephone Encounter - Andrade Calderon RPh - 07/31/2024 2:36 PM EDT Acalabrutinib RX sent to [facility] Dr. Pierre/Gian/Franca/Jenna: SANDRA Time Spent on Encounter: 6 - 10 minutes Encounter Group: Hematology Encounter Interventions Item Category: Oral Chemotherapy Acalabrutinib Problem/Rationale: Adherence - Medication product not available Pharmacist Intervention(s): Medication prescribed Magnitude of Intervention: Modification of medication for asymtomatic patients (Level 2) * Telephone Encounter - Chandrika Asencio OSA - 07/30/2024 3:42 PM EDT [email or web address] can help with calquence please send prescription to [facility] for processing and than [facility] can assist. Chandrika Asencio Medication Didactic Instructor 07/30/2024.3:43 PM * Telephone Encounter - Gian Wilson RN - 07/30/2024 11:03 AM EDT [facility] - Please see message regarding coverage for Calquence. * Telephone Encounter - Eryn Veliz OSA - 07/30/2024 10:51 AM EDT Patients Caitlin called regarding Tano's Calquence. She advised [employer] has been providing this medication for him for free. The company changed their income guidelines and now they make too much for him to get this medication for free through them. [employer] has already been helping him with his Privigen infusions and they advised Caitlin there is money left in his fund that could be used to pay for his Calquence. They would need a prescription from Dr. Pierre faxed to [facility] at [phone] and their phone number is [phone]. Caitlin can be reached at [phone]. Thank you. documented in this encounter Plan of Treatment Upcoming Encounters Date Type Department Care Team (Late st Contact Info) Description 08/19/2024 10:00 AM EST Laboratory [address] [place] [address] [place] [address] 08/20/2024 9:00 AM EST Pharmacy Pharmacy Hematology Oncology [facility] [address] [facility] [place] [address] [facility]c [address] [place] [address] 08/20/2024 10:30 AM EST Hem/Onc Treatment Hematology/Oncology Treatment, [place] 200 [facility], [place] [address] Gemma, Chair 7 Hem Onc Scenery [address] [place], [place] [address] 09/16/2024 10:00 AM EST Laboratory Laboratory [address], [place] [address] [place] [address] [place], Lab [address] [place] [address] 09/17/2024 10:15 AM EST Hem/Onc Treatment Hematology/Oncology Treatment, [place] 200 [facility], [place] [address] Gemma, Chair 10 Hem Onc Scenery 200 [facility] [place], [place] [address] 10/14/2024 10:00 AM EST Laboratory Laboratory [address], [place] [address] [place] [address] [place], Lab [address] [place] [address] 10/15/2024 10:00 AM EST Hem/Onc Treatment Hematology/Oncology Treatment, [place] 200 [facility], [place] [address] Gemma, Chair 10 Hem Onc Scenery [address] [place] [address] 01/07/2025 11:15 AM EDT Office Visit Hematology/Oncology Scenery [place] [address] [place] [phone] Carlos Pierre MD [address] [place], [place] [address] 02/11/2025 10:00 AM EDT Nurse Only Ancillary [place] [address] [place] [address] [place], Nurse Annual Wellness Cold [address] [place] [address] 03/29/2025 10:30 AM EDT Office Visit Urology Ghada Fraser [address] [place] [address] Paul Ha Jr., MD 27 [place] [address] 04/01/2025 11:00 AM EDT Office Visit Family Practice [address] [place] [address] Linda Baeza, [address] [place] [address] Health Maintenance Due Date Last Done Comments Albumin/Creatinine Ratio 11/27/2024 11/27/2023, 10/07 CKD PHOS USE SMARTSET 00944 11/27/202411/08, 10/24/2022, 04/23/2021 GFR 01/20/2025 07/22/2024, 06/07, 05/27/2024, Additional history exists Adult Wellness Visit 02/05/2025 02/06/2024, 12/14/19 23 Depression Screening 07/07/2025 07/07/2024, 02/06/20 24 CKD HGB USE SMARTSET 58376 07/22/202507/22, 07/22/2024, 06/24/2024, Additional history exists DTap/Tdap [...] this encounter Medical Devices Implanted Type Area Research Test Engine Operator Device Identifier Shelf Expiration Date Model / Serial / Lot Intraocular Lens Implanted:Qty: 1 on 01/12/2016 by Amari Loomis MD at [facility] Right: Eye 11/06/2018 MX60+11.0 / [id number] / [id number] documented as of this encounter Visit Diagnoses Diagnosis CLL (chronic lymphocytic leukemia) (HCC) Chronic lymphoid leukemia, without mention of having achieved remission documented in this encounter Advance Directives * Full Code (Latest Code Status on File) Date Activated Date Inactivated Comments 01/12/2016 9:49 AM 01/12/2016 3:56 PM This order ref lects the patients wishes and were consensually agreed upon. Care Teams J2Ee Developer Relationship Specialty Start Date End Date Linda Baeza DO [address] [facility] [place] [address] PCP - General Family Medicine 09/11/22 documented as of this encounter
--- OUTSIDE RECORDS SUMMARY | 2024-12-05 15:21 | External Medical Summary | Summary of Care ---
Author Name Unknown Organization [facility] Address [address] [place] [address] Phone [phone] Care Team Providers Care Religion Teacher Name Role Phone AryanBradenLindarey Sharma DO Primary Care Provider [phone]- [phone] Reason for Visit * Reason Onset Date Comments Advice 07/30/2024 Dr. Pierre Encounter Details Date Type Department Care Team (Late st Contact Info) Description 07/30/2024 Telephone Hematology/Oncology [facility] [address] [facility] [phone] Carlos Pierre MD [address] [place] [address] Advice (Dr. Pierre ) Allergies Active Allergy [...] by mouth 1 Tablet daily . Active [place] 3 1000 MG Oral Capsule Take by mouth daily . Active Saline 0.65 % Nasal Solution Administer 1 [place] into nostril as needed for Congestion. Active [...] (chronic lymphocytic leukemia) (HCC) Take 100 mg (1 tablet) by mouth in the morning and 100 mg (1 tablet) before bedtime. With or without food. 60 [...] solution 2.5 mgIndications:Multifoca l pneumonia,LULI (mycobacterium avium-intracellulare) ([facility]),Bronchiectasis with acute exacerbation ([facility]) 2.5 mg NEBULIZER ONCE PRN 08/21/2023 08/20/2024 [...] mRNA, LNP-s, No Pre serve, 2-Dose Series ([employer]) 06/07/2021,12/14/2020,11/23/2020 COVID-19, LNP-s, No Preserve , William-sucrose, Ages 12+ ([employer]) 02/08/2022 COVID-19, MRNA-LNP, 24-25, P F, 50 MCG/0.5ML, IM, 12 YRS & ABOVE ([facility] [employer]) 06/10/2024,02/07/2024 COVID-19, MRNA-LNP, 24-25, P [...] 2:36 PM EDT Acalabrutinib RX sent to [facility] Dr. Pierre/Gian/Franca/MELODY: SANDRA Time Spent on Encounter: 6 - 10 minutes Encounter Group: Hematology Encounter Interventions Item Category: Oral Chemotherapy Acalabrutinib Problem/Rationale: Adherence - Medication product not available Pharmacist Intervention(s): Medication prescribed Magnitude of Intervention: Modification of medication for asymtomatic patients (Level 2) * Telephone Encounter - Chandrika Asencio OSA - 07/30/2024 3:42 PM EDT [employer] can help with calquence please send prescription to [facility] for processing and than [facility] can assist. Chandrika Asencio Medication Product Support Analyst 07/30/2024.3:43 PM * Telephone Encounter - Gian Wilson RN - 07/30/2024 11:03 AM EDT MTM - Please see message regarding coverage for Calquence. * Telephone Encounter - Eryn Veliz OSA - 07/30/2024 10:51 AM EDT Patients Caitlin called regarding Tano's Calquence. She advised [employer] has been providing this medication for him for free. The company changed their income guidelines and now they make too much for him to get this medication for free through them. [facility] has already been helping him with his Privigen infusions and they advised Caitlin there is money left in his fund that could be used to pay for his Calquence. They would need a prescription from Dr. Pierre faxed to [facility] at [phone] and their phone number is [phone]. Caitlin can be reached at [phone]. Thank you. documented in this encounter Plan of Treatment Upcoming Encounters Date Type Department Care Team (Late st Contact Info) Description 08/19/2024 10:00 AM EST Laboratory Laboratory [address] [place] [phone] [place] [address] 08/20/2024 9:00 AM EST Pharmacy Pharmacy Hematology Oncology [address] [place] [address] [facility] [place] Hem/Onc [address] [facility] [place] [address] 08/20/2024 10:30 AM EST Hem/Onc Treatment Hematology/Oncology Treatment, [place] [address] [facility], [place] [phone] Gemma, Chair 7 Hem Onc Scenery [address] [place], [place] [address] 09/16/2024 10:00 AM EST Laboratory Laboratory [address], [place] [address] [place] [address] [place], Lab [address] [place] [address] 09/17/2024 10:15 AM EST Hem/Onc Treatment Hematology/Oncology Treatment, [place] [address] [facility], [place] [phone] Gemma, Chair 10 Hem Onc Scenery [address] [place], [place] [address] 10/14/2024 10:00 AM EST Laboratory Laboratory [address], [place] [address] [place], [place] [address] [place], Lab [address] [place] [address] 10/15/2024 10:00 AM EST Hem/Onc Treatment Hematology/Oncology Treatment, [place] [address] [facility], [place] [phone] Gemma, Chair 10 Hem Onc Scenery [address] [place] [address] 01/07/2025 11:15 AM EDT Office Visit Hematology/Oncology [address] [place] [address] [place] [phone] Carlos Pierre MD [address] [place] [address] 02/11/2025 10:00 AM EDT Nurse Only Ancillary [place] [address] [place] [address] [place], Nurse Annual Wellness Cold [address] [place] [address] 03/29/2025 10:30 AM EDT Office Visit Urology Ghada Fraser [address] [place] [address] Paul Ha Jr., MD [address] [place] [address] 04/01/2025 11:00 AM EDT Office Visit Family [facility] [place] [address] [address] [place] [address] Linda Baeza, [address] [place] [address] Health Maintenance Due Date Last Done Comments Albumin/Creatinine Ratio 11/27/2024 11/27/2023, 10/07 CKD PHOS USE SMARTSET 42475 11/27/2024 02/10/2023, 10/24/2022, 04/23/2021 GFR 01/20/2025 07/22/2024, 06/07, 05/27/2024, Additional history exists Adult Wellness Visit 02/05/2025 02/06/2024, 12/14/19 23 Depression Screening 07/07/2025 07/07/2024, 02/06/20 24 CKD HGB USE SMARTSET 35852 07/22/202507/22, 07/22/2024, 06/24/2024, Additional history exists DTap/Tdap [...] this encounter Medical Devices Implanted Type Area Intensive Care Nurse Device Identifier Shelf Expiration Date Model / Serial / Lot Intraocular Lens Implanted:Qty: 1 on 01/12/2016 by Amari Loomis MD at OR [facility] Right: Eye 11/06/2018 MX60+11.0 / [id number] / [id number] documented as of this encounter Visit Diagnoses Diagnosis CLL (chronic lymphocytic leukemia) (HCC) Chronic lymphoid leukemia, without mention of having achieved remission documented in this encounter Advance Directives * Full Code (Latest Code Status on File) Date Activated Date Inactivated Comments 01/12/2016 9:49 AM 01/12/2016 3:56 PM This order ref lects the patients wishes and were consensually agreed upon. Care Teams Religion Teacher Relationship Specialty Start Date End Date Linda Baeza DO [address] [facility] [place] [address] PCP - General Family Medicine 09/11/22 documented as of this encounter
--- OUTSIDE RECORDS SUMMARY | 2024-12-05 15:21 | External Medical Summary | Summary of Care ---
Author Name Unknown Organization [facility] Address [address] [place] [address] Phone [phone] Care Team Providers Care Weatherseal Technician Name Role Phone Linda Baeza DO Primary Care Provider [phone]- [phone] Reason for Visit * Reason Comments Outpatient Testing Encounter Details Date Type Department Care Team (Late st Contact Info) Description 07/22/2024 10:00 AM EDT Laboratory Laboratory [facility] [address] [place] [phone] [facility] [address] [place] [address] CLL (chronic lymphocytic leukemia) (HCC) Allergies Active Allergy Reactions Criticality Noted Date Comments Meperidine Hcl 02/19/2019 Lamotrigine Other (Please comment) Medium 07/19/2021 Causes patient to fall. Rofecoxib 11/06/2004 rash &swelling in legs, stumbling (vioxx) documented as of this encounter (statuses as of 07/22/2024) Medications Medication Sig Dispensed Refills Start Date End Date Status NATURAL SUPPLEMENTIndicati ons:Per Pt: to prevent arthritis Take by mouth. Vinegar/Honey Daily 0 0 07/12/2005 Active Probiotic Product (PROBIOTIC ACIDOPHILUS BIOBEADS) Capsule Take 1 Capsule by mouth in the morning. Active Multiple Vitamins-Minerals (MULTIVITAMIN MEN 50+) TABS Take by mouth 1 Tablet daily . Active [place] 3 1000 MG Oral Capsule Take by mouth daily . Active Saline 0.65 % Nasal Solution Administer 1 [place] into nostril as needed for Congestion. Active CoQ10 100 MG Oral Capsule Take by mouth daily. Active Benefiber Drink Mix Oral Packet Take 1 Dose by mouth daily. Active Privigen 40 GM/400ML Intravenous Solution (Immune Globulin Human-IVIG 10%) Administer 40 g intravenously Every Month. Every 28 days Active Acalabrutinib 100 MG Oral Capsule (Calquence)Indicat ions:CLL (chronic lymphocytic leukemia) (HCC) Take 100 mg by mouth in the morning and 100 mg before bedtime. With or without food. 60 Capsule 11 08/15/2023 Active Finasteride 5 MG Oral Tablet (Proscar) Take 1 Tablet by mouth in the morning. 90 Tablet 3 03/16/2024 Active Breo Ellipta 200-25 MCG/ACT Inhalation Aerosol Powder Breath ActivatedIndicatio ns:Moderate persistent asthma without complication INHALE ONE PUFF BY MOUTH EVERY DAY 180 Each 2 04/08/2024 Active Fluticasone Propionate 50 MCG/ACT Nasal SuspensionIndicati ons:Asthma, moderate persistent Administer 2 Sprays into nostril in the morning. Each nostril. 16 g 1 06/12/2024 Active ICaps AREDS Formula Oral Tablet Take 1 Tablet by mouth in the morning and 1 Tablet before bedtime. 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[facility]),Bronchiectasis with acute exacerbation ([facility]) 2.5 mg NEBULIZER ONCE PRN 08/21/2023 08/20/2024 Active documented as of this encounter (statuses as of 07/22/2024) Active Problems Problem Noted Date Diagnosed Date [...] as of this encounter (statuses as of 07/22/2024) Resolved Problems Problem Noted Date Diagnosed Date [...] as of this encounter (statuses as of 07/22/2024) Immunizations Name Administration Dates Next Due COVID-19 mRNA, LNP-s, No Pre serve, 2-Dose Series ([employer]) 06/07/2021,12/14/2020,11/23/2020 COVID-19, LNP-s, No Preserve , [...] Care Team (Late st Contact Info) Description 07/23/2024 10:45 AM EDT Office Visit Hematology/Oncology [facility] [place] [address] [facility] [place] [phone] Carlos Pierre MD [address] [facility] [place] [address] 07/23/2024 11:15 AM EDT Hem/Onc Treatment Hematology/Oncology Treatment, [place] [address] [facility] [place] [phone] Gemma, Chair [address] Hem On[address] [place] [address] 08/20/2024 9:00 AM [facility] Pharmacy Pharmacy Hematology Oncology [facility] [address] [place] [address] [facility] [place] Hem/Onc [address] [place] [address] 02/11/2025 10:00 AM EDT Nurse Only Ancillary [address] [place] [address] [place], Nurse Annual Wellness Cold [address] [place] [address] 03/29/2025 10:30 AM EDT Office Visit Urology Ghada Fraser [address] [place] [address] Paul Ha Jr., MD [address] [place] [address] 04/01/2025 11:00 AM EDT Office Visit [facility] [place], [place] [address] [facility] [place] [place] [phone] Linda Baeza DO [address] [place] [address] Pending Results Name Type Priority Associated Diagnoses Date /Time IMMUNOGLOBULIN QUANTITATIVE Lab STAT CLL (chronic lymphocytic leukemia) ([facility]) 07/22/2024 10:06 AM EDT CBC WITH WBC DIFFERENTIAL Lab STAT CLL (chronic lymphocytic leukemia) ([facility]) 07/22/2024 10:06 AM EDT COMPREHENSIVE METABOLIC PANEL Lab STAT CLL (chronic lymphocytic leukemia) ([facility]) 07/22/2024 10:06 AM EDT CBC Lab STAT CLL (chronic lymphocytic leukemia) ([facility]) 07/22/2024 10:06 AM EDT DIFFERENTIAL, AUTOMATED Lab STAT CLL (chronic lymphocytic leukemia) ([facility]) 07/22/2024 10:06 AM EDT Health Maintenance Due Date Last Done Comments Albumin/Creatinine Ratio 11/27/2024 11/27/2023, 10/07 CKD PHOS USE SMARTSET [id number] 11/27/202411/08, 10/24/2022, 04/23/2021 GFR 12/22/2024 06/24/2024, 05/08, 04/22/2024, Additional history exists Adult Wellness Visit 02/05/2025 02/06/2024, 12/14/19 23 CKD HGB USE SMARTSET 74675 06/24/202506/24, 06/24/2024, 05/27/2024, Additional history exists Depression Screening 07/07/2025 07/07/2024, 02/06/20 24 DTap/Tdap Vaccines (4 - Td or Tdap) [...] this encounter Medical Devices Implanted Type Area Baggage And Mail Agent Device Identifier Shelf Expiration Date Model / Serial / Lot Intraocular Lens Implanted:Qty: 1 on 01/12/2016 by Amari Loomis MD at [facility] Right: Eye 11/06/2018 MX60+11.0 / [id number] / [id number] documented as of this encounter Visit Diagnoses Diagnosis CLL (chronic lymphocytic leukemia) (HCC) Chronic lymphoid leukemia, without mention of having achieved remission documented in this encounter Advance Directives * Full Code (Latest Code Status on File) Date Activated Date Inactivated Comments 01/12/2016 9:49 AM 01/12/2016 3:56 PM This order ref lects the patients wishes and were consensually agreed upon. Care Teams Weatherseal Technician Relationship Specialty Start Date End Date Linda Baeza DO [address] [facility] [place] [place] [address] PCP - General Family Medicine 09/11/22 documented as of this encounter
--- OUTSIDE RECORDS SUMMARY | 2024-12-05 15:21 | External Medical Summary ---
Author Name Unknown Address Unknown Organization K01:LABORATORY [facility] [place] - [address] [facility] [id number] Laboratory Report Ordering Provider Test Date Status KASSIDY RADFORD 07/22/2024 10:06:28 Final Observation Date Value Abnormality Reference (Units ) Status SYNC LEUKOCYTES IN BLOOD BY AUTOMATED COUNT 07/22/2024 10:06:28 12.79 Above high normal 4.00-10.80 (K/uL) Final Neutrophils/100 leukocytes in Blood by Manual count 07/22/2024 10:06:28 24.0 Below low normal 40.0-75.0 (%) Final Lymphocytes/100 leukocytes in Blood by Manual count 07/22/2024 10:06:28 72.0 Above high normal 18.0-42.0 (%) Final Monocytes/100 leukocytes in Blood by Manual count 07/22/2024 10:06:28 3.0 1.0-11.0 (%) Final Eosinophils/100 leukocytes in Blood by Manual count 07/22/2024 10:06:28 1.0 0.0-6.0 (%) Final Neutrophils [#/volume] in Blood by Manual count 07/22/2024 10:06:28 3.07 1.80-7.70 (K/uL) Final Lymphocytes [#/volume] in Blood by Manual count 07/22/2024 10:06:28 9.21 Above high normal 1.00-4.80 (K/uL) Final Monocytes [#/volume] in Blood by Manual count 07/22/2024 10:06:28 0.38 0.00-1.10 (K/uL) Final Eosinophils [#/volume] in Blood by Manual count 07/22/2024 10:06:28 0.13 0.00-0.70 (K/uL) Final Schistocytes 07/22/2024 10:06:28 Few Abnormal None Seen Final Variant lymphocytes [Presence] in Blood by Light microscopy 07/22/2024 10:06:28 Present Abnormal None Seen Final Performing Location LABORATORY [facility] [place] - [address] [facility] [address]
--- OUTSIDE RECORDS SUMMARY | 2024-12-05 15:21 | External Medical Summary ---
Author Name Unknown Address Unknown Organization K01:LABORATORY [facility] [place] - [address] [place] [address] Laboratory Report Ordering Provider Test Date Status KASSIDY RADFORD 07/22/2024 10:06:28 Final Observation Date Value Abnormality Reference (Units ) Status WBC, Total 07/22/2024 10:06:28 12.79 Above high normal 4.00-10.80 (K/uL) Final RBC 07/22/2024 10:06:28 3.80 4.50-5.25 (M/uL) Final Hemoglobin 07/22/2024 10:06:28 12.4 Below low normal 14.0-16.8 (g/dL) Final HCT 07/22/2024 10:06:28 39.3 Below low normal 40.0-48.4 (%) Final MCV 07/22/2024 10:06:28 103.4 82.0-99.5 (fL) Final MCH 07/22/2024 10:06:28 32.6 27.0-34.0 (pg) Final MCHC 07/22/2024 10:06:28 31.6 32.0-36.0 (g/dL) Final RDW 07/22/2024 10:06:28 15.7 11.5-15.5 (%) Final Platelets 07/22/2024 10:06:28 172 140-400 (K/uL) Final MPV 07/22/2024 10:06:28 11.6 6.6-11.1 (fL) Final Nucleated erythrocytes/100 leukocytes [Ratio] in Blood by Automated count 07/22/2024 10:06:28 0 <=0 (/100 WBCs) Final Performing Location LABORATORY [facility] [place] - [address] [place] [address]
--- OUTSIDE RECORDS SUMMARY | 2024-12-05 15:21 | External Medical Summary | Summary of Care ---
Author Name Unknown Organization [facility] Address [address] [place] [address] Phone [phone] Care Team Providers Care Logging Assistant Name Role Phone Linda Baeza DO Primary Care Provider +1- [phone] Reason for Visit * Reason Comments Medication Administration IVIG * Episode Based Medications (Routine) - Authorized Specialty Diagnoses / Procedures Referred By Contpauly t Referred To Contact Diagnoses CLL (chronic lymphocytic leukemia) (HCC) Hypogammaglobulinemia (HCC) Procedures DC INJ IVIG PRIVIGEN 500 MG Carlos Pierre MD [address] [place] [address] Anc Hem/Onc Junior Menendez DEPT CLOSED - 08/20/23 200 [facility] [place] [address] Referral ID Status Reason Start Date Expiration Date V isits Requested Visits Authorized [id number] Authorized 05/14/2023 04/21/2025 999 [id number] Encounter Details Date Type Department Care Team (Latest Contact Info) Description 07/23/2024 11:15 AM EDT Hem/Onc Treatment Hematology/Oncology Treatment, [place] [address] [place] [address] Gemma, Chair 9 Hem Onc Scenery [address] [place] [address] CLL (chronic lymphocytic leukemia) (HCC)*; Hypogammaglobulinem ia (HCC) Allergies Active Allergy Reactions Criticality Noted Date Comments Meperidine Hcl 02/19/2019 Lamotrigine Other (Please comment) Medium 07/19/2021 Causes patient to fall. Rofecoxib 11/06/2004 rash &swelling in legs, stumbling (vioxx) documented as of this encounter (statuses as of 07/23/2024) Medications Medication Sig Dispensed Refills Start Date End Date Status NATURAL SUPPLEMENTIndicati ons:Per Pt: to prevent arthritis Take by mouth. Vinegar/Honey Daily 0 0 07/12/2005 Active Probiotic Product (PROBIOTIC ACIDOPHILUS BIOBEADS) Capsule Take 1 Capsule by mouth in the morning. Active Multiple Vitamins-Minerals (MULTIVITAMIN MEN 50+) TABS Take by mouth 1 Tablet daily . Active [place] 3 1000 MG Oral Capsule Take by mouth daily . Active Saline 0.65 % Nasal Solution Administer 1 [place] into nostril as needed for Congestion. Active CoQ10 100 MG Oral Capsule Take by mouth daily. Active Benefiber Drink Mix Oral Packet Take 1 Dose by mouth daily. Active Privigen 40 GM/400ML Intravenous Solution (Immune Globulin Human-IVIG 10%) Administer 40 g intravenously Every Month. Every 28 days Active Acalabrutinib 100 MG Oral Capsule (Calquenc)Indicat ions:CLL (chronic lymphocytic leukemia) ([facility]) Take 100 mg by mouth in [...] as of this encounter (statuses as of 07/23/2024) Active Problems Problem Noted Date Diagnosed Date [...] as of this encounter (statuses as of 07/23/2024) Resolved Problems Problem Noted Date Diagnosed Date [...] as of this encounter (statuses as of 07/23/2024) Immunizations Name Administration Dates Next Due COVID-19 mRNA, LNP-s, No Pre serve, 2-Dose Series ([employer]) 06/07/2021,12/14/2020,11/23/2020 COVID-19, LNP-s, No Preserve , William-sucrose, Ages 12+ (Pfizer) 02/08/2022 COVID-19, MRNA-LNP, 24-25, P F, 50 MCG/0.5ML, IM, 12 YRS & ABOVE (Moderna - Spikevax) 06/10/2024,02/07/2024 COVID-19, MRNA-LNP, 24-25, P R, 30MCG/0.3ML, IM, 12YRS AND ABOVE ([employer]-Comirnaty) 07/11/2023 COVID-19, mRNA, LNP-s, PF, B ooster, 100mcg/0.5mg (Moderna) 02/07/2023,08/02/2021 Covid-19, Mrna, Lnp-s, Pf, B ivalent, 30 Mcg, IM, 12 yrs and above ([employer]) 08/10/2022 Pneumococcal Conjugate Vacc, 13 Valent (Prevnar) [...] as of this encounter Nursing Notes * Carina Bauer [...] Description 08/19/2024 10:00 AM EST Laboratory [facility] [address] [place] [phone] Jonatan Schneider [place] [address] [place] [address] 08/20/2024 9:00 AM EST Pharmacy Pharmacy Hematology Oncology [facility] [address] [place] [address] [facility], [facility] Hem/Onc [address] [place] [address] 08/20/2024 10:30 AM EST Hem/Onc Treatment Hematology/Oncology Treatment, [address] [place] [address] Gemma, Chair 7 Hem Onc [address] [address] 09/16/2024 10:00 AM EST Laboratory Laboratory [place]ie Patel [address] [place] [phone] [place], Lab [address] [place] [address] 09/17/2024 10:15 AM EST Hem/Onc Treatment Hematology/Oncology Treatment, [address], [place] [phone] Gemma, Chair 10 Hem Onc Scenery [address] [place] [address] 10/14/2024 10:00 AM EST Laboratory Laboratory [place] [address] [place] [address] [place], Lab [address] [place] [address] 10/15/2024 10:00 AM EST Hem/Onc Treatment Hematology/Oncology Treatment, [place] [address] [place] [address] Gemma, Chair 10 Hem Onc Scenery [address] [place], [place] [address] 01/07/2025 11:15 AM EDT Office Visit Hematology/Oncology [facility] [place]ma [place] [address] [place], [place] [address] Carlos Pierre MD [address] [place], [place] [address] 02/11/2025 10:00 AM EDT Nurse Only Ancillary [address], [place] [address] [place] [address] [place], Nurse Annual Wellness Cold [address] [place] [address] [place] [address] 03/29/2025 10:30 AM EDT Office Visit Urology Ghada Fraser [address] [facility] [address] [place] [address] Paul Ha Jr., MD [address] [place] [address] 04/01/2025 11:00 AM EDT Office Visit Family Practice [address], [place] [address] [place] [address] Linda Baeza, DO [address] [facility] [place] [address] Health Maintenance Due Date Last Done Comments Albumin/Creatinine Ratio 11/27/2024 11/27/2023, 10/07 CKD PHOS USE SMARTSET 48100 11/27/2024 02/2 10/2023, 10/24/2022, 04/23/2021 GFR 01/20/2025 07/22/2024, 06/07, 05/27/2024, Additional history exists Adult Wellness Visit 02/05/2025 02/06/2024, 12/14/19 23 Depression Screening 07/07/2025 07/07/2024, 02/06/20 24 CKD HGB USE SMARTSET 96014 07/22/202507/22, 07/22/2024, 06/24/2024, Additional history exists DTap/Tdap [...] this encounter Medical Devices Implanted Type Area Carbon Capture Power Plant Engineer Device Identifier Shelf Expiration Date Model / Serial / Lot Intraocular Lens Implanted:Qty: 1 on 01/12/2016 by Amari Loomis MD at OR [facility] Right: Eye 11/06/2018 MX60+11.0 / [id number] / [id number] documented as of this encounter Visit Diagnoses [...] Starting on Andreina 07/23/24 at 1230, Until Discontinued, Maximum of 4 grams (4000 mg) per day. Given 07/23/2024 11:31 AM EDT 650 mg diphenhydrAMINE (Benadryl) cap 25 mg 25 mg, Oral, ONCE PRN If previous infusion reaction with IVIG, Starting on Andreina 07/23/24 at 1230, Until Discontinued Given 07/23/2024 11:31 AM EDT 25 mg diphenhydrAMINE (Benadryl) inj 50 mg 50 mg, IV Push, ONCE PRN Other, Hypersensitivity Reaction, Starting on Andreina 07/23/24 at 1118, Until Sat07/24/24 at 1117, For 24 hours EPINEPHrine 1 MG/ML inj 0.3 mg 0.3 mg, Intramuscular, ONCE PRN Other, Hypersensitivity Reaction or Anaphylaxis, Starting on Andreina 07/23/24 at 1118, Until Sat07/24/24 at 1117, For 24 hours hEParin 100 UNIT/ML Lock Flush inj 500 Units 500 Units (5 mL), IV Lock, PRN Other, IV Flush, Starting on Andreina 07/23/24 at 1118, Until Sat07/24/24 at 1117, For 24 hours, Do not flush if lock, PICC, or central line not in place; IV infusing or unable to flush. Hydrocortisone Sod Suc (PF) (Solu-Cortef) inj 100 mg 100 mg, IV Push, ONCE PRN Other, Hypersensitivity Reaction, Starting on Andreina 07/23/24 at 1118, Until Sat07/24/24 at 1117, For 24 hours NSS infusion 500 mL, Intravenous, at 100 mL/hr Administer over 10 Hours, CONTINUOUS, Starting on Andreina 07/23/24 at 1230, Until Andreina 07/23/24 at 2229 Start Infusion 07/23/2024 11:31 AM EDT 500 mL 100 mL/hr sodium chloride 0.9 % flush central line 10 mL 10 mL, IV Push, PRN Other, IV Flush, Starting on Sat07/23/24 at 1118, Until Sat07/24/24 at 1117, For 24 hours, Do not flush if lock, PICC, or central line not in place; IV infusing or unable to flush. Inactive Administered Medications - up to 3 most recent administrations Medication Order MAR Action Action Date Dose Rate Site Immune Globulin Human- IVIG 10% (Privigen) IV 20 g 20 g, IV Piggyback, ONCE, 1 dose, On Sat07/23/24 at 1400, PRIVIGEN infusion instructions Infusion Rate [...] rate of the previous vial Start Infusion 07/23/2024 1:04 PM EDT 20 g 350 mL/hr Immune Globulin Human-IVIG 10% (Privigen) IV 10 g 10 g, IV Piggyback, ONCE, 1 dose, On Sat07/23/24 at 1300, PRIVIGEN infusion instructions Infusion Rate [...] rate of the previous vial Rate Change 07/23/2024 12:45 PM EDT 175 mL/hr Rate Change 07/23/2024 12:29 PM EDT 88 mL/hr Rate Change 07/23/2024 12:13 PM EDT 44 mL/hr documented in this encounter Advance Directives * Full Code (Latest Code Status on File) Date Activated Date Inactivated Comments 01/12/2016 9:49 AM 01/12/2016 3:56 PM This order ref lects the patients wishes and were consensually agreed upon. Care Teams Logging Assistant Relationship Specialty Start Date End Date Linda Baeza DO [address] [facility] [place] [address] PCP - General Family Medicine 09/11/22 documented as of this encounter
--- OUTSIDE RECORDS SUMMARY | 2024-12-05 15:21 | External Medical Summary | Summary of Care ---
Author Name Unknown Organization [facility] Address [address] [place] [address] Phone [phone] Care Team Providers Care Client Services Director Name Role Phone AryanJoellechava Sharma DO Primary Care Provider +1- [phone] Reason for Visit * Reason Onset Date Comments Patient Assistance Program 07/30/2024 25 Ion Ricks Encounter Details Date Type Department Care Team (Late st Contact Info) Description 07/30/2024 Telephone Hematology/Oncology [facility] 200 [facility] [place] [address] Carlos Pierre MD 200 [place] [address] Patient Assistance Program ( Chandrika B... Allergies Active Allergy Reactions Criticality Noted Date [...] by mouth 1 Tablet daily . Active [place] 3 1000 MG Oral Capsule Take by mouth daily . Active Saline 0.65 % Nasal Solution Administer 1 [place] into nostril as needed for Congestion. Active [...] 2.5 mgIndications:Multifoca l pneumonia,LULI (mycobacterium avium-intracellulare) ([facility]),Bronchiectasis with acute exacerbation ([facility]) 2.5 mg NEBULIZER ONCE PRN 08/21/2023 08/20/2024 [...] mRNA, LNP-s, No Pre serve, 2-Dose Series ([employer]) 06/07/2021,12/14/2020,11/23/2020 COVID-19, LNP-s, No Preserve , William-sucrose, Ages 12+ ([employer]) 02/08/2022 COVID-19, MRNA-LNP, 24-25, P F, 50 [...] Telephone Encounter - Chandrika Asencio OSA - 07/31/2024 4:37 PM EDT Patient Assistance Name of Medication: angelito Was patient spoken to: : NO Type of assistance: [facility] Card ID:[id number] Group: [id number] BIN: [id number] PCN: [id number] Name of Phani:Chronic Lymphocytic Leukemia Applications mailed: : NO Follow up: 3-6 months Chandrika Asencio Medication Supervisor Stave Cutting 07/31/2024.4:37 PM * Addendum Note - Andrade Claderon RPh - 07/31/2024 2:37 PM EDTAddended by: ANDRADE CALDERON on: 07/31/2024 02:37 PM Modules accepted: Orders * Telephone Encounter - Andrade Calderon RPh - 07/31/2024 2:36 PM EDT Acalabrutinib RX sent to [facility] Dr. Pierre/Gian/Franca/[facility]: SANDRA Time Spent on Encounter: 6 - 10 minutes Encounter Group: Hematology Encounter Interventions Item Category: Oral Chemotherapy Acalabrutinib Problem/Rationale: Adherence - Medication product not available Pharmacist Intervention(s): Medication prescribed Magnitude of Intervention: Modification of medication for asymtomatic patients (Level 2) * Telephone Encounter - Chandrika Asencio OSA - 07/30/2024 3:42 PM EDT [email or web address] can help with calquence please send prescription to [facility] for processing and than [facility] can assist. Chandrika Asencio Medication Supervisor Stave Cutting 07/30/2024.3:43 PM * Telephone Encounter - Gian Wilson, RN - 07/30/2024 11:03 AM EDT MTM - Please see message regarding coverage for Calquence. * Telephone Encounter - Eryn Veliz OSA - 07/30/2024 10:51 AM EDT Patients Caitlin called regarding Tano's Calquence. She advised [facility] [employer] has been providing this medication for him for free. The company changed their income guidelines and now they make too much for him to get this medication for free through them. [employer] has already been helping him with his Privigen infusions and they advised Caitlin there is money left in his fund that could be used to pay for his Calquence. They would need a prescription from Dr. Pierre faxed to [facility] at [phone] and their phone number is [phone]. Caitlin can be reached at [phone]. Thank you. documented in this encounter Plan of Treatment Upcoming Encounters Date Type Department Care Team (Late st Contact Info) Description 08/19/2024 10:00 AM EST Laboratory Laboratory [place] [address] [place] [phone] [place] [address] 08/20/2024 9:00 AM EST Pharmacy Pharmacy Hematology Oncology [facility] [address] [place] [address] [facility], [facility] Hem/Onc [address] [place] [address] 08/20/2024 10:30 AM EST Hem/Onc Treatment Hematology/Oncology Treatment, [place] 200 [facility], [place] [phone] Gemma, Chair 7 Hem Onc Scenery 200 [facility] [place] [address] 09/16/2024 10:00 AM EST Laboratory Laboratory [place] [address] [place] [address] [place] [address] 09/17/2024 10:15 AM EST Hem/Onc Treatment Hematology/Oncology Treatment, [place] 200 [facility], [place] [address] Gemma, Chair 10 Hem Onc Scenery 200 [facility] [place] [address] 10/14/2024 10:00 AM EST Laboratory Laboratory [place] [address] [place] [phone] [place] [place] [address] 10/15/2024 10:00 AM EST Hem/Onc Treatment Hematology/Oncology Treatment, [place] [address] [place] [address] Gemma, Chair 10 Hem Onc Scenery [address] [place] [address] 01/07/2025 11:15 AM EDT Office Visit Hematology/Oncology [facility] [place] [address] [place] [address] Carlos Pierre MD [address] [place] [address] 02/11/2025 10:00 AM EDT Nurse Only Ancillary [place] Patel [address] [place] [address] [place], Nurse Annual Wellness Cold [address] [place] [address] 03/29/2025 10:30 AM EDT Office Visit Urology Ghada Fraser [address] [place] [address] Paul Ha Jr., MD [address] [place] [id number] 04/01/2025 11:00 AM EDT Office Visit Family Practice [place] [address] [place] [address] [place] [address] Linda Baeza DO [address] [place] [address] Health Maintenance Due Date Last Done Comments Albumin/Creatinine Ratio 11/27/2024 11/27/2023, 10/07 CKD PHOS USE SMARTSET 01335 11/27/202411/08, 10/24/2022, 04/23/2021 GFR 01/20/2025 07/22/2024, 06/07, 05/27/2024, Additional history exists Adult Wellness Visit 02/05/2025 02/06/2024, 12/14/19 23 Depression Screening 07/07/2025 07/07/2024, 02/06/20 24 CKD HGB USE SMARTSET 09084 07/22/202507/22, 07/22/2024, 06/24/2024, Additional history exists DTap/Tdap [...] this encounter Medical Devices Implanted Type Area Installation Helper Device Identifier Shelf Expiration Date Model / Serial / Lot Intraocular Lens Implanted:Qty: 1 on 01/12/2016 by Amari Loomis MD at [facility] Right: Eye 11/06/2018 MX60+11.0 / [id number] / [id number] documented as of this encounter Visit Diagnoses Diagnosis CLL (chronic lymphocytic leukemia) (HCC) Chronic lymphoid leukemia, without mention of having achieved remission documented in this encounter Advance Directives * Full Code (Latest Code Status on File) Date Activated Date Inactivated Comments 01/12/2016 9:49 AM 01/12/2016 3:56 PM This order ref lects the patients wishes and were consensually agreed upon. Care Teams Client Services Director Relationship Specialty Start Date End Date Linda Baeza DO [address] [facility] [place] [address] PCP - General Family Medicine 09/11/22 documented as of this encounter
--- OUTSIDE RECORDS SUMMARY | 2024-12-05 15:21 | External Medical Summary | Summary of Care ---
Author Name Unknown Organization [facility] Address [address] [place] [address] Phone [phone] Care Team Providers Care Capacity Analyst Name Role Phone AryanBradenLindarey Sharma DO Primary Care Provider [phone]- [phone] Reason for Visit * Reason Onset Date Comments Advice 07/30/2024 Dr. Pierre Encounter Details Date Type Department Care Team (Late st Contact Info) Description 07/30/2024 Telephone Hematology/Oncology [facility] 200 [place] [phone] Carlos Pierre MD 200 [place] [address] Advice (Dr. Pierre ) Allergies Active Allergy [...] by mouth 1 Tablet daily . Active [place] 3 1000 MG Oral Capsule Take by mouth daily . Active Saline 0.65 % Nasal Solution Administer 1 [place] into nostril as needed for Congestion. Active [...] mgIndications:Multifoca l pneumonia,LULI (mycobacterium avium-intracellulare) ([facility]),Bronchiectasis with acute exacerbation ([facility]) 2.5 mg NEBULIZER ONCE PRN 08/21/2023 08/20/2024 [...] mRNA, LNP-s, No Pre serve, 2-Dose Series ([employer]) 06/07/2021,12/14/2020,11/23/2020 COVID-19, LNP-s, No Preserve , William-sucrose, Ages 12+ ([employer]) 02/08/2022 COVID-19, MRNA-LNP, 24-25, P F, 50 [...] 2:36 PM EDT Acalabrutinib RX sent to [facility] Dr. Pierre/Gian/Franca/Jenna: SANDRA Time Spent on Encounter: 6 - 10 minutes Encounter Group: Hematology Encounter Interventions Item Category: Oral Chemotherapy Acalabrutinib Problem/Rationale: Adherence - Medication product not available Pharmacist Intervention(s): Medication prescribed Magnitude of Intervention: Modification of medication for asymtomatic patients (Level 2) * Telephone Encounter - Chandrika Asencio OSA - 07/30/2024 3:42 PM EDT [email or web address] can help with calquence please send prescription to [facility] for processing and than [facility] can assist. Chandrika Asencio Medication Vault Maker 07/30/2024.3:43 PM * Telephone Encounter - Gian Wilson RN - 07/30/2024 11:03 AM EDT [facility] - Please see message regarding coverage for Calquence. * Telephone Encounter - Eryn Veliz OSA - 07/30/2024 10:51 AM EDT Patients Caitlin called regarding Tano's Calquence. She advised [employer] has been providing this medication for him for free. The company changed their income guidelines and now they make too much for him to get this medication for free through them. [employer] has already been helping him with his Privigen infusions and they advised Caitlin there is money left in his fund that could be used to pay for his Calquence. They would need a prescription from Dr. Pierre faxed to [facility] at [phone] and their phone number is [phone]. Caitlin can be reached at [phone]. Thank you. documented in this encounter Plan of Treatment Upcoming Encounters Date Type Department Care Team (Late st Contact Info) Description 08/19/2024 10:00 AM EST Laboratory [place] [address] [place] [address] [place] [address] 08/20/2024 9:00 AM EST Pharmacy Pharmacy Hematology Oncology [facility] [address] [facility] [place] [address] [facility]c [address] [place] [address] 08/20/2024 10:30 AM EST Hem/Onc Treatment Hematology/Oncology Treatment, [place] [address] [facility], [place] [address] Gemma, Chair 7 Hem Onc Scenery [address] [place], [place] [address] 09/16/2024 10:00 AM EST Laboratory Laboratory [address], [place] [address] [place] [address] [place], Lab [address] [place] [address] 09/17/2024 10:15 AM EST Hem/Onc Treatment Hematology/Oncology Treatment, [place] [address] [facility], [place] [address] Gemma, Chair 10 Hem Onc Scenery 200 [facility] [place], [place] [address] 10/14/2024 10:00 AM EST Laboratory Laboratory [address], [place] [address] [place] [address] [place], [address] [place] [address] 10/15/2024 10:00 AM EST Hem/Onc Treatment Hematology/Oncology Treatment, [place] [address] [facility], [place] [address] Gemma, Chair 10 Hem Onc Scenery [address] [place] [address] 01/07/2025 11:15 AM EDT Office Visit Hematology/Oncology Sc[address]ery [place] [address] [place] [phone] Carlos Pierre MD [address] [place], [place] [address] 02/11/2025 10:00 AM EDT Nurse Only Ancillary [place] Patel [address] [place] [address] [place], Nurse Annual Wellness Cold [address] [place] [address] 03/29/2025 10:30 AM EDT Office Visit Urology Ghada Fraser [address] [place] [address] Paul Ha Jr., MD [address] [place] [address] 04/01/2025 11:00 AM EDT Office Visit Family Practice [place] [address] [place] [address] Linda Baeza, [address] [place] [address] Health Maintenance Due Date Last Done Comments Albumin/Creatinine Ratio 11/27/2024 11/27/2023, 10/07 CKD PHOS USE SMARTSET 24998 11/27/202411/08, 10/24/2022, 04/23/2021 GFR 01/20/2025 07/22/2024, 06/07, 05/27/2024, Additional history exists Adult Wellness Visit 02/05/2025 02/06/2024, 12/14/19 23 Depression Screening 07/07/2025 07/07/2024, 02/06/20 24 CKD HGB USE SMARTSET 99147 07/22/202507/22, 07/22/2024, 06/24/2024, Additional history exists DTap/Tdap [...] this encounter Medical Devices Implanted Type Area Kayaking Instructor Device Identifier Shelf Expiration Date Model / Serial / Lot Intraocular Lens Implanted:Qty: 1 on 01/12/2016 by Amari Loomis MD at [facility] Right: Eye 11/06/2018 MX60+11.0 / [id number] / [id number] documented as of this encounter Visit Diagnoses Diagnosis CLL (chronic lymphocytic leukemia) (HCC) Chronic lymphoid leukemia, without mention of having achieved remission documented in this encounter Advance Directives * Full Code (Latest Code Status on File) Date Activated Date Inactivated Comments 01/12/2016 9:49 AM 01/12/2016 3:56 PM This order ref lects the patients wishes and were consensually agreed upon. Care Teams Capacity Analyst Relationship Specialty Start Date End Date Linda Baeza DO [address] [facility] [place] [address] PCP - General Family Medicine 09/11/22 documented as of this encounter
--- OUTSIDE RECORDS SUMMARY | 2024-12-05 15:21 | External Medical Summary | Summary of Care ---
Author Name Unknown Organization [facility] Address [address] [place] [address] Phone [phone] Care Team Providers Care Content Analyst Name Role Phone AryanBradenLindarey Sharma DO Primary Care Provider [phone]- [phone] Reason for Visit * Reason Onset Date Comments Advice 07/30/2024 Dr. Pierre Encounter Details Date Type Department Care Team (Late st Contact Info) Description 07/30/2024 Telephone Hematology/Oncology [facility] [address] [place] [phone] Carlos Pierre MD [address] [place] [address] Advice (Dr. Pierre ) Allergies Active Allergy [...] by mouth 1 Tablet daily . Active Trenton 3 1000 MG Oral Capsule Take by mouth daily . Active Saline 0.65 % Nasal Solution Administer 1 [place] into nostril as needed for Congestion. Active [...] mRNA, LNP-s, No Pre serve, 2-Dose Series ([employer]) 06/07/2021,12/14/2020,11/23/2020 COVID-19, LNP-s, No Preserve , William-sucrose, [...] Asencio OSA - 07/30/2024 3:42 PM EDT [employer] can help with calquence please send prescription to [facility] for processing and than [facility] can assist. Chandrika Asencio Medication Instrumental Teacher 07/30/2024.3:43 PM * Telephone Encounter - Gian Wilson, ABRAHAM - 07/30/2024 11:03 AM EDT MTM - Please see message regarding coverage for Calquence. * Telephone Encounter - Eryn Veliz OSA - 07/30/2024 10:51 AM EDT Patients Caitlin called regarding Tano's Calquence. She advised [employer] has been providing this medication for him for free. The company changed their income guidelines and now they make too much for him to get this medication for free through them. [employer] has already been helping him with his Privigen infusions and they advised Caitlin there is money left in his fund that could be used to pay for his Calquence. They would need a prescription from Dr. Pierre faxed to [facility] at [phone] and their phone number is [phone]. Caitlin can be reached at [phone]. Thank you. documented in this encounter Plan of Treatment Upcoming Encounters Date Type Department Care Team (Late st Contact Info) Description 08/19/2024 10:00 AM EST Laboratory Laboratory [place] [address] [place] [phone] Jonatan Schneider [place] [address] [place] [address] 08/20/2024 9:00 AM EST Pharmacy Pharmacy Hematology Oncology [place] [address] [place] [address] [facility], [facility] Hem/[place] [address] 08/20/2024 10:30 AM EST Hem/Onc Treatment Hematology/Oncology Treatment, [place] 200 [facility], [place] [phone] Gemma, Chair 7 Hem Onc Scenery [address] [facility] [place] [address] 09/16/2024 10:00 AM EST Laboratory Laboratory [place] [address] [place] [phone] Jonatan Schneider [place] [address] [place] [address] 09/17/2024 10:15 AM EST Hem/Onc Treatment Hematology/Oncology Treatment, [place] 200 [facility], [place] [phone] Gemma, Chair 10 Hem Onc Scenery [address] [facility] [place] [address] 10/14/2024 10:00 AM EST Laboratory Laboratory [place] [address] [place] [phone] [address] [place] [address] [place] [address] 10/15/2024 10:00 AM EST Hem/Onc Treatment Hematology/Oncology Treatment, [place] [address] [place] [address] Gemma, Chair 10 Hem Onc Scene [address] [place] [address] 01/07/2025 11:15 AM EDT Office Visit Hematology/Oncology [facility] [place] [address] [place], [place] [address] Carlos Pierre MD 200 [facility] [place] [address] 02/11/2025 10:00 AM EDT Nurse Only Ancillary [place] [address] Patel [address] [place] [address] [place], Nurse Annual Wellness Cold [address] [place] [address] 03/29/2025 10:30 AM EDT Office Visit Urology Ghada Fraser [address] [facility] [address] [place] [address] Paul Ha Jr., MD [address] [place] [address] 04/01/2025 11:00 AM EDT Office Visit Family Practice [place] [address] [place] [address] Linda Baeza DO [address] [place] [address] Health Maintenance Due Date Last Done Comments Albumin/Creatinine Ratio 11/27/2024 11/27/2023, 10/07 CKD PHOS USE SMARTSET 35213 11/27/2024 02/10/2023, 10/24/2022, 04/23/2021 GFR 01/20/2025 07/22/2024, 06/07, 05/27/2024, Additional history exists Adult Wellness Visit 02/05/2025 02/06/2024, 12/14/19 23 Depression Screening 07/07/2025 07/07/2024, 02/06/20 24 CKD HGB USE SMARTSET 77573 07/22/202507/22, 07/22/2024, 06/24/2024, Additional history exists DTap/Tdap [...] this encounter Medical Devices Implanted Type Area Health Assessment And Treatment Teacher Device Identifier Shelf Expiration Date Model / Serial / Lot Intraocular Lens Implanted:Qty: 1 on 01/12/2016 by Amari Loomis MD at OR [facility] Right: Eye 11/06/2018 MX60+11.0 / [id number] / [id number] documented as of this encounter Advance Directives * Full Code (Latest Code Status on File) Date Activated Date Inactivated Comments 01/12/2016 9:49 AM 01/12/2016 3:56 PM This order ref lects the patients wishes and were consensually agreed upon. Care Teams Content Analyst Relationship Specialty Start Date End Date Linda Baeza DO [address] [facility] [facility] [address] PCP - General Family Medicine 09/11/22 documented as of this encounter
--- OUTSIDE RECORDS SUMMARY | 2024-12-05 15:21 | External Medical Summary | Summary of Care ---
Author Name Unknown Organization [facility] Address [address] [place] [address] Phone [phone] Care Team Providers Care Risk Prevention Engineer Name Role Phone AryanBradenLindarey Sharma DO Primary Care Provider [phone]- [phone] Reason for Visit * Reason Onset Date Comments Advice 07/30/2024 Dr. Pierre Encounter Details Date Type Department Care Team (Late st Contact Info) Description 07/30/2024 Telephone Hematology/Oncology [facility] 200 [facility] [phone] Carlos Pierre MD [address] [place] [address] Advice (Dr. Pierre ) Allergies Active Allergy [...] by mouth 1 Tablet daily . Active Arcola 3 1000 MG Oral Capsule Take by mouth daily . Active Saline 0.65 % Nasal Solution Administer 1 Moose into nostril as needed for Congestion. Active [...] solution 2.5 mgIndications:Multifoca l pneumonia,LULI (mycobacterium avium-intracellulare) ([facility]),Bronchiectasis with acute exacerbation ([facility]) 2.5 mg NEBULIZER ONCE PRN 08/21/2023 08/20/2024 [...] mRNA, LNP-s, No Pre serve, 2-Dose Series ([employer]) 06/07/2021,12/14/2020,11/23/2020 COVID-19, LNP-s, No Preserve , William-sucrose, [...] Asencio OSA - 07/30/2024 3:42 PM EDT [employer] can help with calquence please send prescription to [facility] for processing and than [facility] can assist. Chandrika Asencio Medication Ortho Assistant 07/30/2024.3:43 PM * Telephone Encounter - Gian Wilson, ABRAHAM - 07/30/2024 11:03 AM EDT MTM - Please see message regarding coverage for Calquence. * Telephone Encounter - Eryn Veliz OSA - 07/30/2024 10:51 AM EDT Patients Caitlin called regarding Tano's Calquence. She advised [employer] has been providing this medication for him for free. The company changed their income guidelines and now they make too much for him to get this medication for free through them. [employer] has already been helping him with his Privigen infusions and they advised Caitlin there is money left in his fund that could be used to pay for his Calquence. They would need a prescription from Dr. Pierre faxed to [facility] at [phone] and their phone number is [phone]. Caitlin can be reached at [phone]. Thank you. documented in this encounter Plan of Treatment Upcoming Encounters Date Type Department Care Team (Late st Contact Info) Description 08/19/2024 10:00 AM EST Laboratory Laboratory [place] [address] [place] [phone] Jonatan Schneider [place] [address] [place] [address] 08/20/2024 9:00 AM EST Pharmacy Pharmacy Hematology Oncology [place] [address] [place] [address] [facility], [facility] Hem/Onc [facility] [place] [address] 08/20/2024 10:30 AM EST Hem/Onc Treatment Hematology/Oncology Treatment, [place] 200 [facility], [place] [phone] Gemma, Chair 7 Hem Onc Scenery [address] [facility] [place] [address] 09/16/2024 10:00 AM EST Laboratory Laboratory [place] [address] [address] [place] [phone] Jonatan Schneider [place] [address] [place] [address] 09/17/2024 10:15 AM EST Hem/Onc Treatment Hematology/Oncology Treatment, [place] 200 [facility], [place] [phone] Gemma, Chair 10 Hem Onc Scenery [address] [facility] [place] [address] 10/14/2024 10:00 AM EST Laboratory Laboratory [place] [address] [address] [place] [phone] [place] [address] 10/15/2024 10:00 AM EST Hem/Onc Treatment Hematology/Oncology Treatment, [place] [address] [place] [address] Gemma, Chair 10 Hem Onc Scene [address] [place] [address] 01/07/2025 11:15 AM EDT Office Visit Hematology/Oncology [facility] [place] [address] [place], [place] [address] Carlos Pierre MD 200 [facility] [place] [address] 02/11/2025 10:00 AM EDT Nurse Only Ancillary [place] Jennie Patel [address] [place] [place] [address] [place], Nurse Annual Wellness Cold [address] [place] [address] 03/29/2025 10:30 AM EDT Office Visit Urology Ghada Fraser [address] [facility] [address] [place] [address] Paul Ha Jr., MD [address] [place] [address] 04/01/2025 11:00 AM EDT Office Visit Family Practice [place] [address] [address] [place] [address] Linda Baeza DO [address] [place] [address] Health Maintenance Due Date Last Done Comments Albumin/Creatinine Ratio 11/27/2024 11/27/2023, 10/07 CKD PHOS USE SMARTSET 12145 11/27/2024 02/10/2023, 10/24/2022, 04/23/2021 GFR 01/20/2025 07/22/2024, 06/07, 05/27/2024, Additional history exists Adult Wellness Visit 02/05/2025 02/06/2024, 12/14/19 23 Depression Screening 07/07/2025 07/07/2024, 02/06/20 24 CKD HGB USE SMARTSET 82682 07/22/202507/22, 07/22/2024, 06/24/2024, Additional history exists DTap/Tdap [...] this encounter Medical Devices Implanted Type Area Tool And Die Technician Device Identifier Shelf Expiration Date Model / Serial / Lot Intraocular Lens Implanted:Qty: 1 on 01/12/2016 by Amari Loomis MD at OR [facility] Right: Eye 11/06/2018 MX60+11.0 / [id number] / [id number] documented as of this encounter Advance Directives * Full Code (Latest Code Status on File) Date Activated Date Inactivated Comments 01/12/2016 9:49 AM 01/12/2016 3:56 PM This order ref lects the patients wishes and were consensually agreed upon. Care Teams Risk Prevention Engineer Relationship Specialty Start Date End Date Linda Baeza [facility] [address] [facility] [address] PCP - General Family Medicine 09/11/22 documented as of this encounter
--- OUTSIDE RECORDS SUMMARY | 2024-12-05 15:21 | External Medical Summary | Summary of Care ---
Author Name Unknown Organization [facility] Address [address] [place] [address] Phone [phone] Care Team Providers Care Oil Pit Attendant Name Role Phone Linda Baeza DO Primary Care Provider +1- [phone] Reason for Visit * Reason Comments Follow Up Treatment Encounter Details Date Type Department Care Team (Late st Contact Info) Description 07/23/2024 10:45 AM EDT Office Visit Hematology/Oncology [facility] 200 [facility] [place] [phone] Carlos Pierre MD 200 [place] [address] CLL (chronic lymphocytic leukemia) (HCC)*; Hypogammaglobulinemia (HCC) [...] by mouth 1 Tablet daily . Active Charlo 3 1000 MG Oral Capsule Take by mouth daily . Active Saline 0.65 % Nasal Solution Administer 1 [place] into nostril as needed for Congestion. Active CoQ10 100 MG Oral Capsule Take by mouth daily. Active Benefiber Drink Mix Oral Packet Take 1 Dose by mouth daily. Active Privigen 40 GM/400ML Intravenous Solution (Immune Globulin Human-IVIG 10%) Administer 40 g intravenously Every Month. Every 28 days Active Acalabrutinib 100 MG Oral Capsule (Calquence)Indicat ions:CLL (chronic lymphocytic leukemia) ([facility]) Take 100 mg [...] solution 2.5 mgIndications:Multifoca l pneumonia,LULI (mycobacterium avium-intracellulare) ([facility]),Bronchiectasis with acute exacerbation ([facility]) 2.5 mg NEBULIZER ONCE PRN 08/21/2023 08/20/2024 Active documented as of this encounter (statuses as of 07/23/2024) Active Problems Problem Noted Date Diagnosed Date Hyperlipidemia 10/31/2023 Heart failure 08/21/2023 Stage 3 chronic kidney disease 08/09/2023 Esophageal reflux 09/11/2022 Multifocal pneumonia 09/11/2022 Anemia 09/11/2022 LULI (mycobacterium avium-intracellulare) 12/06/2 022 Melanoma in situ 09/11/2022 Nonintractable epilepsy [...] mRNA, LNP-s, No Pre serve, 2-Dose Series ([employer]) 06/07/2021,12/14/2020,11/23/2020 COVID-19, LNP-s, No Preserve , William-sucrose, Ages 12+ (Pfizer) 02/08/2022 COVID-19, MRNA-LNP, 24-25, P F, 50 MCG/0.5ML, IM, 12 YRS & ABOVE (Moderna - Spikevax) 06/10/2024,02/07/2024 COVID-19, MRNA-LNP, 24-25, P R, 30MCG/0.3ML, IM, 12YRS AND ABOVE (Liquid[employer]anner-Comirnaty) 07/11/2023 COVID-19, mRNA, LNP-s, PF, B ooster, [...] Sign Reading Time Taken Comments Blood Pressure 136/77 07/23/2024 10:35 AM EDT Pulse 53 07/23/2024 10:35 AM EDT Temperature 36.5 C (97.7 F) 07/23/2024 10:35 AM E DT Respiratory Rate - - Oxygen Saturation 97% 07/23/2024 10:35 AM EDT Inhaled Oxygen Concentration - - Weight 70.3 kg (155 lb) 07/23/2024 10:35 AM EDT Height - - Body Mass Index 22.24 06/17/2024 2:40 PM EDT documented in this [...] Progress Notes * Carlos Pierre MD - 07/23/2024 10:45 AM EDT Hematology/Oncology Outpatient Clinic note [facility] 200 [facility] [place] [address] Name: Tano Rocha Date: 04/10/2023 CHIEF COMPLAINT: Tano Rocha is a 79 year old male here today for f/u visit today. 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 DATE OF DIAGNOSIS: June 2020 CURRENT TREATMENT: Acalabrutinib (Calquence) 100 mg BID (04/30/22 - ) IVIG at 400 mg per kiligram, final dose --> 30 g every 4 weekly. (Started on 01/19/2021) ONCOLOGY HISTORY: He was noticed to have [...] 450 range. Recently she was seen by core piler ([facility] allergy [facility]), they plan to start him on immunoglobin treatment, this started him on subcutaneous immunoglobulin but while he was receiving the injection in the office, he had a possible vasovagal episode and possible seizure, he was then admitted at [facility], I reviewed those records, EEG was normal [...] findings are delineated above. CT chest at [facility] (12/31/2019). 1. Patchy alveolar opacities within the [...] 3. Acute on chronic paranasal sinus disease. He was admitted at [facility] in June 2023 for viral pneumonia, I reviewed hospital records, CT chest was done on 06/27/2023 showed Multifocal nodular and groundglass opacities are seen throughout the lungs and there is bronchial wall thickening as well. -mediastinal lymphadenopathy measuring up to 1.6 cm. HISTORY OF PRESENT ILLNESS: He has come to the clinic for the follow-up, he has come the clinic by himself. Overall he is doing well, tolerated acalabrutinib without significant side effects, some mild bruising with a trivial injury, no fever, no infections, some mild coughing, not on oxygen treatment, denies any abdominal discomfort, no diarrhea, no constipation, no new cardiac or pulmonary symptoms, ambulates well, stable weight around 155 lb. No increasing headache. Currently not on any antibiotic treatment. Tolerated IVIG without significant side effects. 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 [place] NONE 02/05/2004 heart cath at [facility] NONE 10/07/1949 Tonsils and adenoids NONE 10/07/1976 Vasectomy NONE 11/14/[address] Yeager at [facility] REMOVAL OF PROSTATE (TURP) 02/27/2019 TRANSURETHRAL RESECTION PROSTATE ELECTROSURGICAL performed by Selene Lange MD at [facility] Social History Tobacco Use Smoking status: Never [...] Take by mouth 1 Tablet daily . Charlo 3 1000 MG Oral Capsule Take by mouth daily . Saline 0.65 % Nasal Solution Administer 1 [place] into nostril as needed for Congestion. CoQ10 100 MG Oral Capsule Take by mouth daily. Benefiber Drink Mix Oral Packet Take 1 Dose by mouth daily. Privigen 40 GM/400ML Intravenous Solution (Immune Globulin Human-IVIG 10%) Administer 40 g intravenously Every Month. Every 28 days Acalabrutinib 100 MG Oral Capsule (Calquence) Take 100 mg by mouth in the morning and 100 mg beforebedtime. With or without food. 60 Capsule 11 Finasteride 5 MG Oral Tablet (Proscar) Take 1 Tablet by mouth in the morning. 90 Tablet 3 Breo Ellipta 200-25 MCG/ACT Inhalation Aerosol Powder Breath Activated INHALE ONE PUFF BY MOUTH EVERY DAY 180 Each 2 Fluticasone Propionate 50 MCG/ACT Nasal Suspension Administer 2 Sprays into nostril in the morning.Each nostril. 16 g 1 ICaps AREDS Formula Oral Tablet Take 1 Tablet by mouth in the morning and 1 Tablet before bedtime. Current Facility-Administered Medications Medication Dose Route Frequency Provider Last Rate Last Admin Albuterol Sulfate (Proventil) (2.5 MG/3ML) 0.083% inhalation solution 2.5 mg 2.5 mg Nebulizer Once PRN Linda Baeza, OBJECTIVE: BP 136/77 (BP Site: Left Arm, BP Position: Sitting, BP Cuff Size: Regular) | Pulse 53 | Temp 36.5 C (97.7 F) (Tympanic) | Wt 70.3 kg (155 lb) | SpO2 97% | BMI 22.24 kg/m | BSA 1.86 m PHYSICAL EXAM: ECOG: Performance Status 1 [...] Grossly intact LABS: Blood workup done on 01/22/2024: -WBC 11,500, -ANC 2700, Absolute lymphocyte count 8500. -BUN/Creat: 27/1.1, Calcium 9.8, normal LFT. -Ig Blood workup done on 04/22/2024: - WBC 8700, - ANC 3800, Absolute Lymphocyte count 4400 - H&H of 12.7/38.5, platelet count of 185,000. - BUN/Creat: 24/1.2, normal LFT, calcium 9.9 - IgG 823, IgA 52, IgM less than 5. Blood workup done on 07/22/2024: -BUN/Creat: 27/1.1, normal LFT, Calcium 10.2 -WBC 12,700, ANC 3000, Absolute lymphocyte count 9200, Hemoglobin and hematocrit -12.4/39.3, Platelet count of 189922. IMPRESSION/PLAN: B cell CLL Hypogammaglobinemia Overall he has done well in the last several months, I reviewed his blood workup done yesterday, overall stable blood workup noted. No recent infectious complications, Will proceed with IVIG every monthly as we planned. No complications with IVIG therapy. He will continue acalabrutinib (Calquence) 100 mg twice a day. Tolerated well, no new bleeding or bruising. Will see him in about [address] Carlos Pierre Hem/Onc (This note was completed using the dictation program Fluency Direct. As such, there may be misspellings word substitutions, or other variations that should not change the essence of the clinical content of this encounter note. If there is need for further clarification, please direct questions to the provider listed above.) documented in this encounter Nursing Notes * Saundra Calixto, PETRA ASSIST - 07/23/2024 10:36 AM EDT Patient identifed by name and birthdate Do you have any concerns about pain management for today's visit? Yes. Patient instructed to discuss pain concerns with provider during the visit today Living Will or Advance Directive for Health Care as noted on the problem list. [facility] is a way you can talk to your provider on line through e-mail. Would you like to sign up? I can activate it for you? ALREADY ACTIVE Filed Vitals: 07/23/24 1035 BP: 136/77 Pulse: 53 Temp: 36.5 C (97.7 F) TempSrc: Tympanic SpO2: 97% Weight: 70.3 kg (155 lb) Patient was instructed to not get up [...] st Contact Info) Description 08/20/2024 9:00 AM [facility] Pharmacy Pharmacy Hematology Oncology [facility] [address] [place] [address] [facility] [place], [facility] Hem/Onc [address] [place] [address] 02/11/2025 10:00 AM EDT Nurse Only Ancillary [address] [place] [address] [place], Nurse Annual Wellness Cold [address] [place] [address] 03/29/2025 10:30 AM EDT Office Visit Urology Ghada Fraser [address] [facility] [address] [place] [address] Paul Ha Jr., MD [address] [place] [address] 04/01/2025 11:00 AM EDT Office Visit Family Practice [address] [place] [address] Linda Baeza DO [address] [place] [address] Health Maintenance Due Date Last Done Comments Albumin/Creatinine Ratio 11/27/2024 11/27/2023, 10/07 CKD PHOS USE SMARTSET 22192 11/27/2024 02/2 10/2023, 10/24/2022, 04/23/2021 GFR 01/20/2025 07/22/2024, 06/07, 05/27/2024, Additional history exists Adult Wellness Visit 02/05/2025 02/06/2024, 12/14/19 23 Depression Screening 07/07/2025 07/07/2024, 02/06/20 24 CKD HGB USE SMARTSET 69060 07/22/202507/22, 07/22/2024, 06/24/2024, Additional history exists DTap/Tdap [...] this encounter Medical Devices Implanted Type Area Light Adjuster Device Identifier Shelf Expiration Date Model / Serial / Lot Intraocular Lens Implanted:Qty: 1 on 01/12/2016 by Amari Loomis MD at OR [facility] Right: Eye 11/06/2018 MX60+11.0 / [id number] / [id number] documented as of this encounter Visit Diagnoses Diagnosis CLL (chronic lymphocytic leukemia) (HCC)- Primary Chronic lymphoid leukemia, without mention of having achieved remission Hypogammaglobulinemia (HCC) Hypogammaglobulinaemia, unspecified documented in this encounter Advance Directives * Full Code (Latest Code Status on File) Date Activated Date Inactivated Comments 01/12/2016 9:49 AM 01/12/2016 3:56 PM This order ref lects the patients wishes and were consensually agreed upon. Care Teams Oil Pit Attendant Relationship Specialty Start Date End Date Linda Baeza DO [address] [facility] [place] [address] PCP - General Family Medicine 09/11/22 documented as of this encounter"
--- OUTSIDE RECORDS SUMMARY | 2024-12-05 15:21 | External Medical Summary | Summary of Care ---
Author Name Unknown Organization [facility] Address [address] [place] [address] Phone [phone] Care Team Providers Care Irrigation Teacher Name Role Phone AryanBradenLindarey Sharma DO Primary Care Provider [phone]- [phone] Reason for Visit * Reason Onset Date Comments Advice 07/30/2024 Dr. Pierre Encounter Details Date Type Department Care Team (Late st Contact Info) Description 07/30/2024 Telephone Hematology/Oncology [facility] [address] [place] [phone] Carlos Pierre MD [address] [place] [address] Advice (Dr. Pierre ) Allergies Active Allergy [...] by mouth 1 Tablet daily . Active [place] 3 1000 MG Oral Capsule Take by mouth daily . Active Saline 0.65 % Nasal Solution Administer 1 [place] into nostril as needed for Congestion. Active [...] solution 2.5 mgIndications:Multifoca l pneumonia,LULI (mycobacterium avium-intracellulare) ([facility]),Bronchiectasis with acute exacerbation ([facility]) 2.5 mg NEBULIZER ONCE PRN [...] mRNA, LNP-s, No Pre serve, 2-Dose Series ([employer]) 06/07/2021,12/14/2020,11/23/2020 COVID-19, LNP-s, No Preserve , William-sucrose, [...] Asencio OSA - 07/30/2024 3:42 PM EDT [facility] can help with calquence please send prescription to [facility] for processing and than [facility] can assist. Chandrika Asencio Medication Organ Grinder 07/30/2024.3:43 PM * Telephone Encounter - Gian Wilson, ABRAHAM - 07/30/2024 11:03 AM EDT MTM - Please see message regarding coverage for Calquence. * Telephone Encounter - Eyrn Veliz OSA - 07/30/2024 10:51 AM EDT Patients Caitlin called regarding Tano's Calquence. She advised [employer] has been providing this medication for him for free. The company changed their income guidelines and now they make too much for him to get this medication for free through them. [facility] has already been helping him with his [employer] infusions and they advised Caitlin there is money left in his fund that could be used to pay for his Calquence. They would need a prescription from Dr. Pierre faxed to [facility] at [phone] and their phone number is [phone]. Caitlin can be reached at [phone]. Thank you. documented in this encounter Plan of Treatment Upcoming Encounters Date Type Department Care Team (Late st Contact Info) Description 08/19/2024 10:00 AM EST Laboratory Laboratory [place] [address] [place] [phone] Jonatan Schneider [place] [address] [place] [address] 08/20/2024 9:00 AM EST Pharmacy Pharmacy Hematology Oncology [place] [address] [place] [address] [facility] [place] Hem/Onc [facility] [place] [address] 08/20/2024 10:30 AM EST Hem/Onc Treatment Hematology/Oncology Treatment, [place] [address] [facility], [place] [phone] Gemma, Chair 7 Hem Onc Scenery [address] [facility] [place] [address] 09/16/2024 10:00 AM EST Laboratory Laboratory [place] [address] [place] [phone] Jonatan [place] [address] [place] [address] 09/17/2024 10:15 AM EST Hem/Onc Treatment Hematology/Oncology Treatment, [place] [address] [facility], [place] [phone] Gemma, Chair 10 Hem Onc Scenery [facility] [place] [address] 10/14/2024 10:00 AM EST Laboratory Laboratory [place] [address] [place] [phone] Jonatan Schneider [place] [address] [place] [address] 10/15/2024 10:00 AM EST Hem/Onc Treatment Hematology/Oncology Treatment, [place] [address] [place] [address] Gemma, Chair 10 Hem Onc Scene [address] [place] [address] 01/07/2025 11:15 AM EDT Office Visit Hematology/Oncology [facility] [place] [address] [place], [place] [address] Carlos Pierre MD [address] [facility] [place] [address] 02/11/2025 10:00 AM EDT Nurse Only Ancillary [place] Jennie Patel [address] [place] [address] [place], Nurse Annual Well[facility] [place] [address] [place] [address] 03/29/2025 10:30 AM EDT Office Visit Urology Ghada Fraser [address] [facility] [address] [place] [address] Paul Ha Jr., MD [address] [place] [address] 04/01/2025 11:00 AM EDT Office Visit Family Practice [place] [address] [place] [address] Linda Baeza DO [address] [place] [address] Health Maintenance Due Date Last Done Comments Albumin/Creatinine Ratio 11/27/2024 11/27/2023, 10/07 CKD PHOS USE SMARTSET 73422 11/27/2024 02/10/2023, 10/24/2022, 04/23/2021 GFR 01/20/2025 07/22/2024, 06/07, 05/27/2024, Additional history exists Adult Wellness Visit 02/05/2025 02/06/2024, 12/14/19 23 Depression Screening 07/07/2025 07/07/2024, 02/06/20 24 CKD HGB USE SMARTSET 97606 07/22/202507/22, 07/22/2024, 06/24/2024, Additional history exists DTap/Tdap [...] this encounter Medical Devices Implanted Type Area Department Manager Device Identifier Shelf Expiration Date Model / Serial / Lot Intraocular Lens Implanted:Qty: 1 on 01/12/2016 by Amari Loomis MD at OR [facility] Right: Eye 11/06/2018 [id number]+11.0 / [id number] / [id number] documented as of this encounter Advance Directives * Full Code (Latest Code Status on File) Date Activated Date Inactivated Comments 01/12/2016 9:49 AM 01/12/2016 3:56 PM This order ref lects the patients wishes and were consensually agreed upon. Care Teams Irrigation Teacher Relationship Specialty Start Date End Date Linda Baeza DO [address] [facility] [address] PCP - General Family Medicine 09/11/22 documented as of this encounter
--- OUTSIDE RECORDS SUMMARY | 2024-12-05 15:21 | External Medical Summary | Summary of Care ---
Author Name Unknown Organization [facility] Address [address] [place] [address] Phone [phone] Care Team Providers Care Inside Sales Advisor Name Role Phone Linda Baeza DO Primary Care Provider [phone]- [phone] Reason for Visit * Reason Onset Date Comments Medication Refill 08/03/2024 Encounter Details Date Type Department Care Team (Late st Contact Info) Description 08/03/2024 Telephone Hematology/Oncology [facility] [address] [facility] [place] [phone] Carlos Pierre MD [address] [place] [address] Medication Refill Allergies Active Allergy Reactions Criticality Noted Date Comments Meperidine Hcl 02/19/2019 Lamotrigine Other (Please comment) Medium 07/19/2021 Causes patient to fall. Rofecoxib 11/06/2004 rash &swelling in legs, stumbling (vioxx) documented as of this encounter (statuses as of 08/03/2024) Medications Medication Sig Dispensed Refills Start Date End Date Status NATURAL SUPPLEMENTIndicat ions:Per Pt: to prevent arthritis Take by mouth. Vinegar/Honey Daily 0 0 07/12/2005 Active Probiotic Product (PROBIOTIC ACIDOPHILUS BIOBEADS) Capsule Take 1 Capsule by mouth in the morning. Active Multiple Vitamins-Minerals (MULTIVITAMIN MEN 50+) TABS Take by mouth 1 Tablet daily . Active [place] 3 1000 MG Oral Capsule Take by mouth daily . Active Saline 0.65 % Nasal Solution Administer 1 [place] into nostril as needed for Congestion. Active [...] solution 2.5 mgIndications:Multifoca l pneumonia,LULI (mycobacterium avium-intracellulare) ([facility]),Bronchiectasis with acute exacerbation ([facility]) 2.5 mg NEBULIZER ONCE PRN 08/21/2023 08/20/2024 Active documented as of this encounter (statuses as of 08/03/2024) Active Problems Problem Noted Date Diagnosed Date [...] as of this encounter (statuses as of 08/03/2024) Resolved Problems Problem Noted Date Diagnosed Date [...] as of this encounter (statuses as of 08/03/2024) Immunizations Name Administration Dates Next Due COVID-19 mRNA, LNP-s, No Pre serve, 2-Dose Series ([employer])) 06/07/2021,12/14/2020,11/23/2020 COVID-19, LNP-s, No Preserve , William-sucrose, [...] 1:41 PM EDT Forwarding calquence for [facility] (facility worker pharmacy) due to luis eduardo with facility worker Amy Mendoza RPH, PharmD Specialty Medication Pharmacist [facility] 08/03/2024,1:42 PM documented in this encounter Plan of Treatment Upcoming Encounters Date Type Department Care Team (Late st Contact Info) Description 08/19/2024 10:00 AM EST Laboratory Laboratory [place] Jennie Patel [address] [facility] [place] [phone] [place], [facility] [address] [facility] [address] 08/20/2024 9:00 AM EST Pharmacy Pharmacy Hematology Oncology [place] [address] [place] [address] [facility] Clinic Hem/Onc [address] [place] [address] 08/20/2024 10:30 AM EST Hem/Onc Treatment Hematology/Oncology Treatment, [place] [address] [facility] [phone] Gemma, Chair 7 Hem Onc Scenery [address] [place], [place] [address] 09/16/2024 10:00 AM EST Laboratory Laboratory [place] [address], [place] [address] [place] [phone] [place], [address] [place] [address] [place] [address] 09/17/2024 10:15 AM EST Hem/Onc Treatment Hematology/Oncology Treatment, [place] [address] [facility] [place] [phone] Gemma, Chair 10 Hem Onc Scenery [address] [place], [place] [address] 10/14/2024 10:00 AM EST Laboratory Laboratory [place] [address], [place] [address] [place] [phone] [place], [address] [place] [address] [place] [address] 10/15/2024 10:00 AM EST Hem/Onc Treatment Hematology/Oncology Treatment, [place] [address] [facility], [place] [phone] Gemma, Chair 10 Hem Onc Scenery [address] [place], [place] [address] 01/07/2025 11:15 AM EDT Office Visit Hematology/Oncology [address] [address] [place], [place] [address] Carlos Pierre MD [address] [place], [place] [address] 02/11/2025 10:00 AM EDT Nurse Only Ancillary [place] [address], [place] [address] [place] [address] [place], Nurse Annual Wellness [place] [address] [place] [address] 03/29/2025 10:30 AM EDT Office Visit Urology Ghada Fraser [address] [place] [address] Paul Ha Jr., MD [address] [place] [address] 04/01/2025 11:00 AM EDT Office [place] [address] [place] [address] Linda Baeza DO [address] [place] [address] Health Maintenance Due Date Last Done Comments Albumin/Creatinine Ratio 11/27/2024 11/27/2023, 10/07 CKD PHOS USE SMARTSET 04646 11/27/202411/08, 10/24/2022, 04/23/2021 GFR 01/20/2025 07/22/2024, 06/07, 05/27/2024, Additional history exists Adult Wellness Visit 02/05/2025 02/06/2024, 12/14/19 23 Depression Screening 07/07/2025 07/07/2024, 02/06/20 24 CKD HGB USE SMARTSET 68597 07/22/202507/22, 07/22/2024, 06/24/2024, Additional history exists DTap/Tdap [...] this encounter Medical Devices Implanted Type Area Strategy Director Device Identifier Shelf Expiration Date Model / Serial / Lot Intraocular Lens Implanted:Qty: 1 on 01/12/2016 by Amari Loomis MD at OR [facility] Right: Eye 11/06/2018 [id number] / [id number] / [id number] documented as of this encounter Visit Diagnoses Diagnosis CLL (chronic lymphocytic leukemia) (HCC) Chronic lymphoid leukemia, without mention of having achieved remission documented in this encounter Advance Directives * Full Code (Latest Code Status on File) Date Activated Date Inactivated Comments 01/12/2016 9:49 AM 01/12/2016 3:56 PM This order ref lects the patients wishes and were consensually agreed upon. Care Teams Inside Sales Advisor Relationship Specialty Start Date End Date Linda Baeza DO [address] [facility] [place] [address] PCP - General Family Medicine 09/11/22 documented as of this encounter
--- OUTSIDE RECORDS SUMMARY | 2024-12-05 15:22 | External Medical Summary | Summary of Care ---
Author Name Unknown Organization [facility] Address [address] [place] [address] Phone [phone] Care Team Providers Care Entertainer & Comic Name Role Phone Linda Baeza DO Primary Care Provider [phone] Reason for Visit * Reason Comments Infusion IVIG * Episode Based Medications (Routine) - Authorized Specialty Diagnoses / Procedures Referred By Contpauly t Referred To Contact Diagnoses CLL (chronic lymphocytic leukemia) (HCC) Hypogammaglobulinemia (HCC) Procedures [place] INJ IVIG PRIVIGEN 500 MG Carlos Pierre MD [address] [place], [place] [address] Anc Hem/Onc Junior Menendez DEPT CLOSED - 08/20/23 [address] [facility] [place] [phone] Referral ID Status Reason Start Date Expiration Date V isits Requested Visits Authorized [id number] Authorized 05/14/2023 04/21/2025 [id number] Encounter Details Date Type Department Care Team (Latest Contact Info) Description 06/25/2024 10:00 AM EDT Hem/Onc Treatment Hematology/Oncology Treatment, [place] [address] [place] [phone] Gemma, Chair 2 Hem Onc [address] [place] [id number] CLL (chronic lymphocytic leukemia) (HCC)*; Hypogammaglobulinem ia (HCC) Allergies Active Allergy Reactions Criticality Noted Date Comments Meperidine Hcl 02/19/2019 Lamotrigine Other (Please comment) Medium 07/19/2021 Causes patient to fall. Rofecoxib 11/06/2004 rash &swelling in legs, stumbling (vioxx) documented as of this encounter (statuses as of 07/01/2024) Medications Medication Sig Dispensed Refills Start Date End Date Status NATURAL SUPPLEMENTIndicati ons:Per Pt: to prevent arthritis Take by mouth. Vinegar/Honey Daily 0 0 07/12/2005 Active Probiotic Product (PROBIOTIC ACIDOPHILUS BIOBEADS) Capsule Take 1 Capsule by mouth in the morning. Active Multiple Vitamins-Minerals (MULTIVITAMIN MEN 50+) TABS Take by mouth 1 Tablet daily . Active Harriet 3 1000 MG Oral Capsule Take by mouth daily . Active Saline 0.65 % Nasal Solution Administer 1 Mabie into nostril as needed for Congestion. Active CoQ10 100 MG Oral Capsule Take by mouth daily. Active Benefiber Drink Mix Oral Packet Take 1 Dose by mouth daily. Active Privigen 40 GM/400ML Intravenous Solution (Immune Globulin Human-IVIG 10%) Administer 40 g intravenously Every Month. Every 28 days Active Acalabrutinib 100 MG Oral Capsule (Calquence)Indicat ions:CLL (chronic lymphocytic leukemia) ([facility]) Take 100 mg by mouth in the [...] as of this encounter (statuses as of 07/01/2024) Active Problems Problem Noted Date Diagnosed Date [...] as of this encounter (statuses as of 07/01/2024) Resolved Problems Problem Noted Date Diagnosed Date [...] as of this encounter (statuses as of 07/01/2024) Immunizations Name Administration Dates Next Due COVID-19 mRNA, LNP-s, No Pre serve, 2-Dose Series (RECCY) 06/07/2021,12/14/2020,11/23/2020 COVID-19, LNP-s, No Preserve , William-sucrose, Ages 12+ (Pfizer) 02/08/2022 COVID-19, MRNA-LNP, 24-25, P F, 50 MCG/0.5ML, IM, 12 YRS & ABOVE (Moderna - Spikevax) 06/10/2024,02/07/2024 COVID-19, MRNA-LNP, 24-25, P R, 30MCG/0.3ML, IM, 12YRS AND ABOVE (RECCY-Comirnaty) 07/11/2023 COVID-19, mRNA, LNP-s, PF, B ooster, 100mcg/0.5mg (Moderna) 02/07/2023,08/02/2021 Covid-19, Mrna, Lnp-s, Pf, B ivalent, 30 Mcg, IM, 12 yrs and above (RECCY) 08/10/2022 Pneumococcal Conjugate Vacc, 13 Valent (Prevnar) [...] PF, (Flublock) 07/05/2021 Seasonal Influenza, Trivalen t, (IIV3), with Preserv, (Fluzone) 06/12/2022,06/24/2019,06/13/2017,06/20,07/13/2011 Seasonal Influenza, Trivalen t, Adjuvanted, 65+ YRS, [...] the money to buy more. Never true 07/01/20 23 Within the past 12 months, t he food you bought just didn't last and you didn't have money to get more. Never true 07/01/2023 Childcare Answer Date Recorded Do you feel overwhelmed with taking care of a child, family member or friend? No 07/01/2023 Does your family need help f inding childcare? (Household - for ages 0-17 years) Not on file 07/01/2023 Clothing Answer Date Recorded Have you been unable to get clothing when it was really needed? No 07/01/2023 Is your family able to get c lothes or diapers when needed? (Household - for ages 0-17 years) Not on file 07/01/2023 Personal Safety Answer Date Recorded Do you feel unsafe or have concerns for your saf ety? No 07/01/2023 Do you have concerns for you r family's safety? (Household - for ages 0-17 years) Not on file 07/01/2023 Utilities Answer Date Recorded Do you have trouble paying y our heating, water, or electric bill? No 07/01/2023 Is your family able to pay t he heat, water, or electric bill? (Household - for ages 0-17 years) Not on file 07/01/2023 Does your family have access to good internet? (Household - for ages 0-17 years) Not on file 07/01/2023 Employment Status Answer Date Recorded Are you unemployed or without regular income? No 07/01/2023 Does the household have a re gular source of income? (Household - for ages 0-17 years) Not on file 07/01/2023 Social Connections Answer Date Recorded How often do you feel lonely or isolated from th ose around you? Never 07/01/2023 Financial Resource Strain Answer Date R ecorded Do you have any trouble payi ng for your medications, or do you think you might in the future? No 07/01/2023 Does your family have troubl e paying for medicine? (Household - for ages 0-17 years) Not on file 07/01/2023 Transportation Needs Answer Date Record ed READ ONLY Do you have troubl e getting a ride to medical visits or work? Never True 07/01/2023 Does your family have a hard time getting a ride to doctors visits? (Household - for ages 0-17 years) Not on file 07/01/2023 Has lack of transportation k ept you from medical appointments, meetings, work, or from getting things needed for daily living? Check all that apply. (Adult - for ages 18 years and over) Not on file 07/01/2023 Do you (or your family) have trouble finding or paying for a ride (transportation)? (Household - for ages 0-17 years) Not on file 07/01/2023 Housing Stability Answer Date Recorded Do you currently live in a s helter or have no steady place to sleep at night? No 07/01/2023 READ ONLY Do you think you a re at risk of becoming homeless? No 07/01/2023 Does your family worry about paying for your home or becoming homeless? (Household - for ages 0-17 years) Not on file 0 07/01/2023 Are you homeless or worried that you might be in the future? (Adult - for ages 18 years and over) Not on file Are you (or your family) caity eless or worried that you might be in the future? (Household - for ages 0-17 years) Not on file Food Insecurity Answer Date Recorded Do you need food for this week? No 07/01/2023 Are you able to get enough f ood for your family? (Household - for ages 0-17 years) Not on file 07/01/2023 Does your family need food t his week? (Household - for ages 0-17 years) Not on file 07/01/2023 Do you always have enough fo od for your family? (Household - for ages 0-17 years) Not on file 07/01/2023 Sex and Gender Information Value Date Recorded Sex Assigned at Male 08/13/2023 12:11 PM EST Gender Identity Male 08/13/2023 12:11 PM EST Sexual Orientation Straight 08/13/2023 12 :11 PM EST Job Start Date Occupation Industry Not on file Not on file Not on file documented as of this encounter Last Filed Vital Signs Vital Sign Reading Time Taken Comments Blood Pressure 131/62 06/25/2024 10:57 AM EDT Pulse 55 06/25/2024 10:57 AM EDT Temperature 36.5 C (97.7 F) 06/25/2024 10:57 AM E DT Respiratory Rate 16 06/25/2024 10:57 AM EDT Oxygen Saturation 95% 06/25/2024 10:57 AM EDT Inhaled Oxygen Concentration - - Weight 69.9 kg (154 lb 3.2 oz) 06/25/2024 10:57 AM EDT Height - - Body Mass Index 22.13 06/17/2024 2:40 PM EDT documented in this [...] of this encounter Nursing Notes * Gena Dotson RN - 06/25/2024 10:52 AM EDT Patient to chair 5 ambulatory Patient voices no complaints or concerns Safety and Risk for Injury Patient will [...] potential yanez while using the heat function. Goals: patient will remain free of injury Possible barriers to meeting goals: ambulation with IV pole, increase risk of fall Stability of the patient: Moderately stable - low risk of patient condition declining or worsening Summary regarding today's goals: Met: patient remained free of injury Patient discharged in good condition, tolerated well documented in this encounter Plan of Treatment Upcoming Encounters Date Type Department Care Team (Late st Contact Info) Description 07/22/2024 10:00 AM EDT [facility] [address] [facility] [place] [phone] Jennie, Jonatan [facility] [address] [place] [address] 07/23/2024 10:45 AM EDT Office Visit Hematology/Oncology [facility] Antonio Menendez [address] [facility] [place] [phone] Carlos Pierre MD [address] [facility] [place] [address] 07/23/2024 11:15 AM EDT Hem/Onc Treatment Hematology/Oncology Treatment, [place] [address] [place] [phone] Gemma, Chair 1 Hem Onc [facility] [address] [facility] [place] [address] 08/20/2024 9:00 AM [facility] H[facility]ology Oncology [address] [address] [facility] Hem/Onc [address] [place] [address] 02/11/2025 10:00 AM EDT Nurse Only Ancillary [address] [place] [address] [place], Nurse Annual Wellness [facility] [address] [place] [address] 03/29/2025 10:30 AM EDT Office Visit Urology Ghada Fraser [address] [place] [address] Paul Ha Jr., MD [address] [place] [id number] 04/01/2025 11:00 AM EDT Office Visit Family Practice [address] [place] [address] Linda Baeza DO [address] [place] [address] Health Maintenance Due Date Last Done Comments Albumin/Creatinine Ratio 11/27/2024 11/27/2023, 10/07 CKD PHOS USE SMARTSET 46752 11/27/202411/08, 10/24/2022, 04/23/2021 GFR 12/22/2024 06/24/2024, 05/08, 04/22/2024, Additional history exists Adult Wellness Visit 02/05/2025 02/06/2024, 12/14/19 23 Depression Screening 02/05/2025 02/06/2024 CKD HGB USE SMARTSET 26703 06/24/202506/24, 06/24/2024, 05/27/2024, Additional history exists DTap/Tdap Vaccines (4 - [...] this encounter Medical Devices Implanted Type Area Flue Cleaner Device Identifier Shelf Expiration Date Model / Serial / Lot Intraocular Lens Implanted:Qty: 1 on 01/12/2016 by Amari Loomis MD [facility] Right: Eye 11/06/2018 [id number] / [id number] / [id number] documented as of this encounter Visit Diagnoses [...] IV Piggyback, ONCE, 1 dose, On Andreina 06/25/24 at 1315, PRIVIGEN infusion instructions Infusion Rate [...] rate of the previous vial Start Infusion 06/25/2024 11:43 AM EDT 20 g 350 mL/hr Immune Globulin Human-IVIG 10% (Privigen) IV 10 g 10 g, IV Piggyback, ONCE, 1 dose, On Andreina 06/25/24 at 1215, PRIVIGEN infusion instructions Infusion Rate [...] rate of the previous vial Rate Change 06/25/2024 11:28 AM EDT 175 mL/hr Rate Change 06/25/2024 11:11 AM EDT 88 mL/hr Rate Change 06/25/2024 10:55 AM EDT 44 mL/hr NSS infusion 500 mL, Intravenous, at 100 mL/hr Administer over 10 Hours, CONTINUOUS, Starting on Andreina 06/25/24 at 1145, Until Andreina 06/25/24 at 1310 Start Infusion 06/25/2024 10:34 AM EDT 500 mL 100 mL/hr documented in this encounter Advance Directives * Full Code (Latest Code Status on File) Date Activated Date Inactivated Comments 01/12/2016 9:49 AM 01/12/2016 3:56 PM This order ref lects the patients wishes and were consensually agreed upon. Care Teams Entertainer & Comic Relationship Specialty Start Date End Date Linda Baeza DO [address] [facility] [place] [address] PCP - General Family Medicine 09/11/22 documented as of this encounter
--- OUTSIDE RECORDS SUMMARY | 2024-12-05 15:22 | External Medical Summary ---
Author Name Unknown Address Unknown Organization [id number]:[facility] [place] [address] [place] [address] Laboratory Report Ordering Provider Test Date Status KASSIDY RADFORD 06/24/2024 09:53:01 Final Observation Date Value Abnormality Reference (Units ) Status WBC, Total 06/24/2024 09:53:01 14.07 Above high normal 4.00-10.80 (K/uL) Final RBC 06/24/2024 09:53:01 3.66 4.50-5.25 (M/uL) Final Hemoglobin 06/24/2024 09:53:01 12.0 Below low normal 14.0-16.8 (g/dL) Final HCT 06/24/2024 09:53:01 37.4 Below low normal 40.0-48.4 (%) Final MCV 06/24/2024 09:53:01 102.2 82.0-99.5 (fL) Final MCH 06/24/2024 09:53:01 32.8 27.0-34.0 (pg) Final MCHC 06/24/2024 09:53:01 32.1 32.0-36.0 (g/dL) Final RDW 06/24/2024 09:53:01 15.4 11.5-15.5 (%) Final Platelets 06/24/2024 09:53:01 174 140-400 (K/uL) Final MPV 06/24/2024 09:53:01 11.0 6.6-11.1 (fL) Final Nucleated erythrocytes/100 leukocytes [Ratio] in Blood by Automated count 06/24/2024 09:53:01 0 <=0 (/100 WBCs) Final Performing Location [facility] [place] [address] [place] [address]
--- OUTSIDE RECORDS SUMMARY | 2024-12-05 15:22 | External Medical Summary | Summary of Care ---
Author Name Unknown Organization [facility] Address [address] [place] [address] Phone [phone] Care Team Providers Care Fish Tender Name Role Phone Linda Baeza DO Primary Care Provider [phone]- [phone] Reason for Visit * Reason Comments Routine Exam Routine exam, on Sat afternoon he knicked his finger with a upholstery trimmer, he states that it does look better than it did, just would like you to take a look at it. Encounter Details Date Type Department Care Team (Latest Contact Info) Description 06/17/2024 2:20 PM EDT Office Visit [facility] [address] [place] [address] Linda Baeza DO [address] [place] [address] Hyperlipidemia, unspecified hyperlipidemia type*; Moderate persistent asthma without complication; Stage 3 chronic kidney disease, unspecified whether stage 3a or 3b CKD ([facility]); Gastroesophageal reflux disease without esophagitis; BPH without obstruction/lower urinary tract symptoms; LULI (mycobacterium avium-intracellulare) ([facility]); 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 Rofecoxib 11/06/2004 rash &swelling in legs, stumbling (vioxx) documented as of this encounter (statuses as of 06/17/2024) Medications Medication Sig Dispensed Refills Start Date End Date Status NATURAL SUPPLEMENTIndicati ons:Per Pt: to prevent arthritis Take by mouth. Vinegar/Honey Daily 0 0 07/12/2005 Active Probiotic Product (PROBIOTIC ACIDOPHILUS BIOBEADS) Capsule Take 1 Capsule by mouth in the morning. Active Multiple Vitamins-Minerals (MULTIVITAMIN MEN 50+) TABS Take by mouth 1 Tablet daily . Active [place] 3 1000 MG Oral Capsule Take by [...] Oral Capsule ([place]quence)Indicat ions:CLL (chronic lymphocytic leukemia) ([facility]) [...] 2.5 mgIndications:Multifoca l pneumonia,LULI (mycobacterium avium-intracellulare) ([facility]),Bronchiectasis with acute exacerbation (HCC) 2.5 mg NEBULIZER ONCE PRN 08/21/2023 08/20/2024 Active documented as of this encounter (statuses as of 06/17/2024) Active Problems Problem Noted Date Diagnosed Date [...] as of this encounter (statuses as of 06/17/2024) Resolved Problems Problem Noted Date Diagnosed Date [...] as of this encounter (statuses as of 06/17/2024) Immunizations Name Administration Dates Next Due COVID-19 mRNA, LNP-s, No Pre serve, 2-Dose Series (Cater to u) 06/07/2021,12/14/2020,11/23/2020 COVID-19, LNP-s, No Preserve , William-sucrose, [...] Never Smokeless Tobacco: Never Tobacco Cessation:Counseling Given: No Alcohol Use Standard Drinks/Week Comments Never 0 [...] Sign Reading Time Taken Comments Blood Pressure 124/58 06/17/2024 2:40 PM EDT Pulse 58 06/17/2024 2:40 PM EDT Temperature 36.7 C (98 F) 06/17/2024 2:40 PM EDT Respiratory Rate 20 06/17/2024 2:40 PM EDT Oxygen Saturation 97% 06/17/2024 2:40 PM EDT Inhaled Oxygen Concentration - - Weight 70.1 kg (154 lb 9.6 oz) 06/17/2024 2:40 P M EDT Height 177.8 cm (5' 10") 06/17/2024 2:40 PM EDT Body Mass Index 22.18 06/17/2024 2:40 PM EDT documented in this [...] this encounter Progress Notes * Linda Baeza, - 06/17/2024 4:13 PM EDT Subjective Tano Rocha is a 79 year old male. Chief Complaint Patient presents with Routine Exam Routine exam, on Saturday afternoon he knicked his finger with a upholstery trimmer, he states that it does look better than it did, just would like you to take a look at it. HPI: 79-year-old male here today for routine visit Chart reviewed Overall patient is doing very well Overall his breathing is significantly improved and stable He is interested in stopping the Breo if at all possible Just saw Pulmonology this past summer, overall studies look good does notice that he does not little bit of panting at night overall typically settles down, hedoes admit to having some difficulty breathing through his nose typically will breathe better if helays on his side versus his stomach His blood pressure is well controlled He follows with Hematology for his history of CLL and hypo gamma globulinemia Overall treatments are tolerated well, he did have some withdrawal symptoms when he went out of state and forgot his medications but overall he is feeling better He denies any chest pain or palpitations dizziness or lightheadedness He did injure his left index finger with a head tremor, has a small laceration, overall he is keeping it clean and dry, some mild swelling PMH: 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) Gynecomastia Stage 3 chronic kidney disease (HCC) Heart failure (HCC) Hyperlipidemia Current Outpatient Medications Medication Sig Dispense Refill NATURAL SUPPLEMENT Take by mouth. Vinegar/Honey Daily 0 0 Probiotic Product (PROBIOTIC ACIDOPHILUS BIOBEADS) Capsule Take 1 Capsule by mouth in the morning. Multiple Vitamins-Minerals (MULTIVITAMIN MEN 50+) TABS Take by mouth 1 Tablet daily . [place] 3 1000 MG Oral Capsule Take by mouth daily . Saline 0.65 % Nasal Solution Administer 1 [place] into nostril as needed for Congestion. 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 [place] NONE 02/05/2004 heart cath at [facility] NONE 10/07/1949 Tonsils and adenoids NONE 10/07/1976 Vasectomy NONE 11/14/[address] Yeager [facility] REMOVAL OF PROSTATE (TURP) 02/27/2019 TRANSURETHRAL RESECTION PROSTATE ELECTROSURGICAL performed by Selene Lange MD at [facility] Review of patient's allergies indicates: Allergen Reactions Lamictal [Lamotrigine] Other (Please comment) Causes patient to fall. Demerol [Meperidine Hcl] Rofecoxib rash &swelling in legs, stumbling (vioxx) Family History Problem Relation Name Age of [...] Daughter Jenna No Known Problems Son Dipak Family Status Relation Status Mo Fa Sis Alive Sis Alive Bro Alive Bro Bro MGMA MGFA PGMA PGFA Juvencio Alive Son Alive Social History Socioeconomic History Marital status: Spouse [...] Social History Narrative Not on file Social Determinants of Health Financial Resource Strain: Low Risk (07/01/2023) Financial Resource Strain Do you have any trouble paying for your medications, or do you think you might in the future? (Adult - for ages 18 years and over): No Does your family have trouble paying for medicine? (Household - for ages 0-17 years): Not on file Food Insecurity: No Food Insecurity (07/01/2023) Food Insecurity Do you need food for [...] on file Transportation Needs: No Transportation Needs (07/01/2023) Transportation Needs Do you have trouble getting a ride to medical visits or work? (Adult - for ages 18 years and over):Never True Does your family have a hard time getting a ride to doctors visits? (Household - for ages 0-17 years): Not on file Has lack of transportation kept you from medical appointments, meetings, work, or from getting things needed for daily living? Check all that apply. (Adult - for ages 18 years and over): Not on file Do you (or your family) have trouble finding or paying for a ride (transportation)? (Household - for ages 0-17 years): Not on file Social Connections: Socially Integrated (07/01/2023) Social Connections How often do you feel lonely or isolated from those around you? (Adult - for ages 18 years and over): Never Housing Stability: Low Risk (07/01/2023) Housing Stability Do you currently live in a senior living or have no steady place to sleep at night? (Adult - for ages 18 years and over): No Do you think you are at risk of becoming homeless? (Adult - for ages 18 years and over): No Does your family worry about paying for your home or becoming homeless? (Household - for ages 0-17 years): Not on file Are you homeless or worried that you might be in the future? (Adult - for ages 18 years and over): Not on file Are you (or your family) homeless or worried that you might be in the future? (Household - for ages0-17 years): Not on file Objective BP 124/58 | Pulse 58 | Temp 36.7 C (98 F) (Temporal Artery) | Resp 20 | Ht 1.778 m (5' 10") | Wt 70.1 kg (154 lb 9.6 oz) | SpO2 97% | BMI 22.18 kg/m | BSA 1.86 m Physical Exam Vitals and nursing note reviewed. Constitutional: General: He is not in acute distress. Appearance: Normal appearance. He is well-developed. He is not ill-appearing or diaphoretic. Neck: Thyroid: No thyromegaly. Cardiovascular: Rate and Rhythm: Normal rate and regular rhythm. Heart sounds: Normal heart sounds. No murmur heard. Pulmonary: Effort: Pulmonary effort is normal. No respiratory distress. Breath sounds: Normal breath sounds. No wheezing, rhonchi or rales. Abdominal: General: There is no distension. Musculoskeletal: General: No deformity. Cervical back: Neck supple. Comments: Small laceration on left index finger, good capillary refill, sensations intact, no signsof infection Skin: General: Skin is warm and dry. Neurological: Mental Status: He is alert and oriented to person, place, and time. Psychiatric: Behavior: Behavior normal. Thought Content: Thought content normal. Judgment: Judgment normal. ASSESSMENT/PLAN: Hyperlipidemia, unspecified hyperlipidemia type (Primary) Moderate persistent asthma without complication Stage 3 chronic kidney disease, unspecified whether stage 3a or 3b CKD (HCC) Gastroesophageal reflux disease without esophagitis BPH without obstruction/lower urinary tract symptoms LULI (mycobacterium avium-intracellulare) (HCC) IgG deficiency (HCC) CLL (chronic lymphocytic leukemia) (HCC) Hypogammaglobulinemia (HCC) Laceration of left index finger without foreign body without damage to nail, initial encounter Overall patient is doing very well No major significant changes Continue all current medications Continue to follow with Hematology and Pulmonology as scheduled Recommend that he keep laceration on his finger clean and dry, overall seems to be healing well Follow-up in 6 months or earlier as needed Follow Up: Return in about 6 months (around 12/15/2024). Linda Baeza DO documented in this encounter Nursing Notes * Jina Birmingham LPN - 06/17/2024 2:32 PM EDT Chief Complaint Patient presents with Routine Exam Routine exam, on Saturday afternoon he knicked his finger with a upholstery trimmer, he states that it does look better than it did, just would like you to take a look at it. documented in this encounter Plan of Treatment Upcoming Encounters Date Type Department Care Team (Late st Contact Info) Description 06/24/2024 10:10 AM EDT Laboratory Laboratory [address] [place] [address] [place] [address] 06/25/2024 9:00 AM EDT Pharmacy Pharmacy Hematology Oncology [facility] [address] [place] [address] [facility] Hem/Onc [address] [place] [address] 06/25/2024 10:00 AM EDT Hem/Onc Treatment Hematology/Oncology Treatment, [place] [address] [place] [phone] Gemma, Chair 2 Hem Onc [address] [facility] [address] 07/22/2024 10:00 AM EDT Laboratory [facility] [address] [place] [address] [place] [phone] Jennie, [address] [place] [address] 07/23/2024 10:45 AM EDT Office Visit Hematology/Oncology [facility] [place] [address] [facility] [address] Carlos Pierre MD [address] [place], [place] [address] 07/23/2024 11:15 AM EDT [facility] [address] [facility], [place] [address] Gemma, Chair 1 Hem Onc [address] [facility] [address] 02/11/2025 10:00 AM EDT Nurse Only Anc[address], [place] [address] [place] [address] [place], Nurse Annual Wellness [place] [address] [place] [address] 03/29/2025 10:30 AM EDT Office Visit Urology Ghada [address] [place] [address] Leland Carlos, Paul Bates MD [address] [place] [address] 04/01/2025 11:00 AM EDT Office Visit Family [facility] [address], [place] [address] [place] [address] Linda Baeza DO [address] [place] [address] Health Maintenance Due Date Last Done Comments Albumin/Creatinine Ratio 11/27/2024 11/27/2023, 10/07 CKD PHOS USE SMARTSET 36059 11/27/202411/08, 10/24/2022, 04/23/2021 GFR 11/27/2024 05/27/2024, 04/06, 03/18/2024, Additional history exists Adult Wellness Visit 02/05/2025 02/06/2024, 12/14/19 23 Depression Screening 02/05/2025 02/06/2024 CKD HGB USE SMARTSET 62042 05/27/202505/27, 05/27/2024, 04/22/2024, Additional history exists DTap/Tdap Vaccines (4 - [...] this encounter Medical Devices Implanted Type Area Internal Specialist Device Identifier Shelf Expiration Date Model / Serial / Lot Intraocular Lens Implanted:Qty: 1 on 01/12/2016 by Amari Loomis MD at [facility] Right: Eye 11/06/2018 [id number] / [id number] / [id number] documented as of this encounter Visit Diagnoses Diagnosis Hyperlipidemia, unspecified hyperlipidemia type- Primary Moderate persistent asthma without complication Unspecified asthma Stage 3 chronic kidney disease, unspecified whether stage 3a or 3b CKD (HCC) Gastroesophageal reflux disease without esophagitis Esophageal reflux BPH without obstruction/lower urinary tract symptoms Hypertrophy of prostate without urinary obstruction and other lower urinary tract symptoms (LUTS) 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 Care Teams Fish Tender Relationship Specialty Start Date End Date Linda Baeza DO [address] [facility] [place] [address] PCP - General Family Medicine 09/11/22 documented as of this encounter
--- OUTSIDE RECORDS SUMMARY | 2024-12-05 15:22 | External Medical Summary ---
Author Name Unknown Address Unknown Organization K01:[facility] - [address] [place] [address] Laboratory Report Ordering Provider Test Date Status KASSIDY RADFORD 06/24/2024 09:53:01 Final Observation Date Value Abnormality Reference (Units ) Status IgG 06/24/2024 09:53:01 289 [id number] ( mg/dL) Final IgA 06/24/2024 09:53:01 54 Below low normal 70- 400 (mg/dL) Final IgM 06/24/2024 09:53:01 <5 Below low normal 40- 230 (mg/dL) Final Performing Location [facility] - [address] [place] [address]
--- OUTSIDE RECORDS SUMMARY | 2024-12-05 15:22 | External Medical Summary | Summary of Care ---
Author Name Unknown Organization [facility] Address [address] [place] [address] Phone [phone] Care Team Providers Care Auricular Detoxification Specialist Name Role Phone Linda Baeza DO Primary Care Provider +1- [phone] Reason for Visit * Reason Comments Outpatient Testing Encounter Details Date Type Department Care Team (Late st Contact Info) Description 06/24/2024 10:10 AM EDT Laboratory Laboratory [facility] [place] [address] [place] [phone] [facility] [address] [place] [address] CLL (chronic lymphocytic leukemia) ([facility]) Allergies Active Allergy Reactions Criticality Noted Date Comments Meperidine Hcl 02/19/2019 Lamotrigine Other (Please comment) Medium 07/19/2021 Causes patient to fall. Rofecoxib 11/06/2004 rash &swelling in legs, stumbling (vioxx) documented as of this encounter (statuses as of 06/24/2024) Medications Medication Sig Dispensed Refills Start Date End Date Status NATURAL SUPPLEMENTIndicati ons:Per Pt: to prevent arthritis Take by mouth. Vinegar/Honey Daily 0 0 07/12/2005 Active Probiotic Product (PROBIOTIC ACIDOPHILUS BIOBEADS) Capsule Take 1 Capsule by mouth in the morning. Active Multiple Vitamins-Minerals (MULTIVITAMIN MEN 50+) TABS Take by mouth 1 Tablet daily . Active [place] 3 1000 MG Oral Capsule Take by mouth daily . Active Saline 0.65 % Nasal Solution Administer 1 [place] into nostril as needed for Congestion. Active [...] solution 2.5 mgIndications:Multifoca l pneumonia,LULI (mycobacterium avium-intracellulare) ([facility]),Bronchiectasis with acute exacerbation ([facility]) 2.5 mg NEBULIZER ONCE PRN 08/21/2023 08/20/2024 Active documented as of this encounter (statuses as of 06/24/2024) Active Problems Problem Noted Date Diagnosed Date [...] as of this encounter (statuses as of 06/24/2024) Resolved Problems Problem Noted Date Diagnosed Date [...] as of this encounter (statuses as of 06/24/2024) Immunizations Name Administration Dates Next Due COVID-19 mRNA, LNP-s, No Pre serve, 2-Dose Series ([place]) 06/07/2021,12/14/2020,11/23/2020 COVID-19, LNP-s, No Preserve , William-sucrose, [...] Care Team (Late st Contact Info) Description 06/25/2024 9:00 AM EDT Pharmacy Pharmacy Hematology Oncology [facility] [address] [place] [address] [facility] Hem/Onc [address] [place] [address] 06/25/2024 10:00 AM EDT Hem/Onc Treatment Hematology/Oncology Treatment, [place] [address] [facility] [address] [place] [address] Gemma, Chair 2 Hem Onc [address] [place] [address] 07/22/2024 10:00 AM EDT Laboratory Laboratory [place] Jennie Pat[address] [place] [phone] Jonatan Schneider [place] [address] [place] [address] 07/23/2024 10:45 AM EDT Office Visit Hematology/Oncology [facility] [place]ma [place] [address] [place] [phone] Carlos Pierre MD [address] [facility] [place] [address] 07/23/2024 11:15 AM EDT Hem/Onc Treatment Hematology/Oncology Treatment, [place] [address] [place] [address] Gemma, Chair 1 Hem Onc Scenery [address] [place] [address] 02/11/2025 10:00 AM EDT Nurse Only Ancillary [place] [address] [place] [address] [place], Nurse Annual Wellness [place] [address] [place] [address] 03/29/2025 10:30 AM EDT Office Visit Urology Ghada Fraser [address] [facility] [address] [place] [id number] Paul Ha Jr., MD [address] [place] [address] 04/01/2025 11:00 AM EDT Office Visit Family Practice [place] [address] [place] [address] Linda Baeaz, [address] [place] [address] Pending Results Name Type Priority Associated Diagnoses Date /Time IMMUNOGLOBULIN QUANTITATIVE Lab STAT CLL (chronic lymphocytic leukemia) ([facility]) 06/24/2024 9:53 AM EDT CBC WITH WBC DIFFERENTIAL Lab STAT CLL (chronic lymphocytic leukemia) ([facility]) 06/24/2024 9:53 AM EDT COMPREHENSIVE METABOLIC PANEL Lab STAT CLL (chronic lymphocytic leukemia) ([facility]) 06/24/2024 9:53 AM EDT CBC Lab STAT CLL (chronic lymphocytic leukemia) ([facility]) 06/24/2024 9:53 AM EDT DIFFERENTIAL, AUTOMATED Lab STAT CLL (chronic lymphocytic leukemia) ([facility]) 06/24/2024 9:53 AM EDT Health Maintenance Due Date Last Done Comments Albumin/Creatinine Ratio 11/27/2024 11/27/2023, 10/07 CKD PHOS USE SMARTSET 20055 11/27/202411/082024, 10/24/2022, 04/23/2021 GFR 11/27/2024 05/27/2024, 04/06, 03/18/2024, Additional history exists Adult Wellness Visit 02/05/2025 02/06/2024, 12/14/19 23 Depression Screening 02/05/2025 02/06/2024 CKD HGB USE SMARTSET 68664 05/27/202505/27, 05/27/2024, 04/22/2024, Additional history exists DTap/Tdap [...] this encounter Medical Devices Implanted Type Area Sr Vice President Device Identifier Shelf Expiration Date Model / Serial / Lot Intraocular Lens Implanted:Qty: 1 on 01/12/2016 by [facility] Loomis [facility] Right: Eye 11/06/2018 [id number] / [id number] / [id number] documented as of this encounter Visit Diagnoses Diagnosis CLL (chronic lymphocytic leukemia) (HCC) Chronic lymphoid leukemia, without mention of having achieved remission documented in this encounter Advance Directives * Full Code (Latest Code Status on File) Date Activated Date Inactivated Comments 01/12/2016 9:49 AM 01/12/2016 3:56 PM This order ref lects the patients wishes and were consensually agreed upon. Care Teams Auricular Detoxification Specialist Relationship Specialty Start Date End Date Linda Baeza DO [address] [facility] [place] [address] PCP - General Family Medicine 09/11/22 documented as of this encounter
--- OUTSIDE RECORDS SUMMARY | 2024-12-05 15:22 | External Medical Summary | Summary of Care ---
Author Name Unknown Organization [facility] Address [address] [place] [address] Phone [phone] Care Team Providers Care Wage Conciliator Name Role Phone Linda Baeza DO Primary Care Provider +1- [phone] Reason for Visit * Reason Comments Infusion IVIG * Episode Based Medications (Routine) - Authorized Specialty Diagnoses / Procedures Referred By Contpauly t Referred To Contact Diagnoses CLL (chronic lymphocytic leukemia) (HCC) Hypogammaglobulinemia (HCC) Procedures MT INJ IVIG PRIVIGEN 500 MG Carlos Pierre MD [address] [place], [place] [address] Anc Hem/Onc Junior Menendez DEPT CLOSED - 08/20/23 [address] [facility] [place] [address] Referral ID Status Reason Start Date Expiration Date V isits Requested Visits Authorized [id number] Authorized 05/14/2023 04/21/[phone] Encounter Details Date Type Department Care Team (Latest Contact Info) Description 06/25/2024 10:00 AM EDT Hem/Onc Treatment Hematology/Oncology Treatment, [place] [address] [place] [address] Gemma, Chair 2 Hem Onc [address] [place] [address] CLL (chronic lymphocytic leukemia) (HCC)*; Hypogammaglobulinem ia (HCC) Allergies Active Allergy Reactions Criticality Noted Date Comments Meperidine Hcl 02/19/2019 Lamotrigine Other (Please comment) Medium 07/19/2021 Causes patient to fall. Rofecoxib 11/06/2004 rash &swelling in legs, stumbling (vioxx) documented as of this encounter (statuses as of 06/25/2024) Medications Medication Sig Dispensed Refills Start Date End Date Status NATURAL SUPPLEMENTIndicati ons:Per Pt: to prevent arthritis Take by mouth. Vinegar/Honey Daily 0 0 07/12/2005 Active Probiotic Product (PROBIOTIC ACIDOPHILUS BIOBEADS) Capsule Take 1 Capsule by mouth in the morning. Active Multiple Vitamins-Minerals (MULTIVITAMIN MEN 50+) TABS Take by mouth 1 Tablet daily . Active [place] 3 1000 MG Oral Capsule Take by mouth daily . Active Saline 0.65 % Nasal Solution Administer 1 [place] into nostril as needed for Congestion. Active CoQ10 100 MG Oral Capsule Take by mouth daily. Active Benefiber Drink Mix Oral Packet Take 1 Dose by mouth daily. Active Privigen 40 GM/400ML Intravenous Solution (Immune Globulin Human-IVIG 10%) Administer 40 g intravenously Every Month. Every 28 days Active Acalabrutinib 100 MG Oral Capsule (Calquence)Indicat ions:CLL (chronic lymphocytic leukemia) ([facility]) Take 100 mg by mouth in the [...] as of this encounter (statuses as of 06/25/2024) Active Problems Problem Noted Date Diagnosed Date [...] as of this encounter (statuses as of 06/25/2024) Resolved Problems Problem Noted Date Diagnosed Date [...] as of this encounter (statuses as of 06/25/2024) Immunizations Name Administration Dates Next Due COVID-19 mRNA, LNP-s, No Pre serve, 2-Dose Series (EXFO) 06/07/2021,12/14/2020,11/23/2020 COVID-19, LNP-s, No Preserve , William-sucrose, Ages 12+ (Pfizer) 02/08/2022 COVID-19, MRNA-LNP, 24-25, P F, 50 MCG/0.5ML, IM, 12 YRS & ABOVE (Moderna - Spikevax) 06/10/2024,02/07/2024 COVID-19, MRNA-LNP, 24-25, P R, 30MCG/0.3ML, IM, 12YRS AND ABOVE (EXFO-Comirnaty) 07/11/2023 COVID-19, mRNA, LNP-s, PF, B ooster, 100mcg/0.5mg (Moderna) 02/07/2023,08/02/2021 Covid-19, Mrna, Lnp-s, Pf, B ivalent, 30 Mcg, IM, 12 yrs and above (EXFO) 08/10/2022 Pneumococcal Conjugate Vacc, 13 Valent (Prevnar) [...] Description 07/22/2024 10:00 AM EDT [facility] [facility] [place] [phone] Jennie, Jonatan [facility] [address] [place] [address] 07/23/2024 10:45 AM EDT Office Visit [facility]ology[facility]cology [facility] Antonio Menendez [address] [facility] [place] [phone] Carlos Pierre MD [address] [facility] [place] [address] 07/23/2024 11:15 AM EDT Hem/Onc Treatment Hematology/Oncology Treatment, [place] [address] [place] [phone] Gemma, Chair 1 Hem Onc [facility] [address] [facility] [place] [address] 08/20/2024 9:00 AM [facility] Pharmacy Pharmacy Hematology Oncology [address] [address] [facility] Hem/Onc [address] [place] [address] 02/11/2025 10:00 AM EDT Nurse Only Ancillary [address] [place] [address] [place], Nurse Annual Wellness Cold [address] [place] [address] 03/29/2025 10:30 AM EDT Office Visit Urology Ghada Fraser [address] [place] [address] Paul Ha Jr., MD [address] [place] [id number] 04/01/2025 11:00 AM EDT Office Visit Family Practice [address] [place] [address] Linda Baeza DO [address] [place] [address] Health Maintenance Due Date Last Done Comments Albumin/Creatinine Ratio 11/27/2024 11/27/2023, 10/07 CKD PHOS USE SMARTSET 11182 11/27/202411/08, 10/24/2022, 04/23/2021 GFR 12/22/2024 06/24/2024, 05/08, 04/22/2024, Additional history exists Adult Wellness Visit 02/05/2025 02/06/2024, 12/14/19 23 Depression Screening 02/05/2025 02/06/2024 CKD HGB USE SMARTSET 75638 06/24/202506/24, 06/24/2024, 05/27/2024, Additional history exists DTap/Tdap [...] this encounter Medical Devices Implanted Type Area Professor Of Physics Device Identifier Shelf Expiration Date Model / Serial / Lot Intraocular Lens Implanted:Qty: 1 on 01/12/2016 by Amari Loomis MD at [facility] Right: Eye 11/06/2018 MX60+11.0 / [id number] / [id number] documented as of this encounter Visit Diagnoses [...] and were consensually agreed upon. Care Teams Wage Conciliator Relationship Specialty Start Date End Date Linda Baeza DO [address] [facility] [place] [address] PCP - General Family Medicine 09/11/22 documented as of this encounter
--- OUTSIDE RECORDS SUMMARY | 2024-12-05 15:22 | External Medical Summary ---
Author Name Unknown Address Unknown Organization K01:[facility] [place] [address] [facility] [address] Laboratory Report Ordering Provider Test Date Status KASSIDY RADFORD 07/22/2024 10:06:28 Final Observation Date Value Abnormality Reference (Units ) Status BUN 07/22/2024 10:06:28 27 Above high normal 6-20 (mg/dL) Final Creatinine 07/22/2024 10:06:28 1.1 0.6-1.2 (mg/dL) Final Glomerular filtration rate/1.73 sq M.predicted [Volume Rate/Area] in Serum, Plasma or Blood by Creatinine-based formula (CKD-EPI) 07/22/2024 10:06:28 68 >=60 (mL/min) Final eGFR is calculated based on the CKD-EPI 2020 equation. Sodium 07/22/2024 10:06:28 142 135-146 (m mol/L) Final Potassium 07/22/2024 10:06:28 4.2 3.5-5.1 (m mol/L) Final Cl 07/22/2024 10:06:28 106 98-107 (mm ol/L) Final CO2 07/22/2024 10:06:28 26 22-32 (mmo l/L) Final Anion gap 07/22/2024 10:06:28 10 7-15 (mmol /L) Final Glucose 07/22/2024 10:06:28 81 70-120 (mg /dL) Final Albumin 07/22/2024 10:06:28 4.2 3.8-5.0 (g /dL) Final AST (Aspartate aminotransferase) 07/22/2024 10:06:28 23 10-50 (U/L) Final Alk Phos 07/22/2024 10:06:28 80 35-130 (U/ L) Final Bilirubin, Total 07/22/2024 10:06:28 0.2 <=1 .2 (mg/dL) Final Calcium 07/22/2024 10:06:28 10.2 8.4-10.2 ( mg/dL) Final Protein 07/22/2024 10:06: 6.1 6.0-8.3 (g /dL) Final ALT (Alanine aminotransferase) 07/22/2024 10:06:28 17 10-50 (U/L) Final Performing Location [facility] [place] Formerly named [facility] N Norma Okeefe. [facility] [place] [address]
--- OUTSIDE RECORDS SUMMARY | 2024-12-05 15:22 | External Medical Summary | Summary of Care ---
Author Name Unknown Organization [facility] Address [address] [place] [address] Phone [phone] Care Team Providers Care Sales Effectiveness Manager Name Role Phone Linda Baeza DO Primary Care Provider +1- [phone] Reason for Visit * Reason Onset Date Comments Medication Refill 06/12/2024 Encounter Details Date Type Department Care Team (Late st Contact Info) Description 06/12/2024 Refill Family Practice [facility] [address] [place] [address] Linda Baeza DO [address] [place] [address] Asthma, moderate persistent* Allergies Active Allergy Reactions Criticality Noted Date Comments Meperidine Hcl 02/19/2019 Lamotrigine Other (Please comment) Medium 07/19/2021 Causes patient to fall. Rofecoxib 11/06/2004 rash &swelling in legs, stumbling (vioxx) documented as of this encounter (statuses as of 06/12/2024) Medications Medication Sig Dispensed Refills Start Date End Date Status NATURAL SUPPLEMENTIndicati ons:Per Pt: to prevent arthritis Take by mouth. Vinegar/Honey Daily 0 0 07/12/2005 Active Probiotic Product (PROBIOTIC ACIDOPHILUS BIOBEADS) Capsule Take 1 Capsule by mouth in the morning. Active Multiple Vitamins-Minerals (MULTIVITAMIN MEN 50+) TABS Take by mouth 1 Tablet daily . Active [place] 3 1000 MG Oral Capsule Take by mouth daily . Active Saline 0.65 % Nasal Solution Administer 1 [place] into nostril as needed for Congestion. 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[facility]),Bronchiectasis with acute exacerbation ([facility]) 2.5 mg NEBULIZER ONCE PRN 08/21/2023 08/20/2024 Active documented as of this encounter (statuses as of 06/12/2024) Active Problems Problem Noted Date Diagnosed Date [...] as of this encounter (statuses as of 06/12/2024) Resolved Problems Problem Noted Date Diagnosed Date [...] as of this encounter (statuses as of 06/12/2024) Immunizations Name Administration Dates Next Due COVID-19 mRNA, LNP-s, No Pre serve, 2-Dose Series (Socialspiel) 06/07/2021,12/14/2020,11/23/2020 COVID-19, LNP-s, No Preserve , William-sucrose, [...] Dos e, Trivalent, PF, IM (Fluzone HD) 06/21/2020,06/24/2019,07/07/2018 Seasonal Influenza, Quadriva lent Hd (Fluzone Hd) 06/10/2024 Seasonal Influenza, Quadriva lent Hd, 65+ Yrs 06/21/2020 Seasonal Influenza, Recombin ant, RIV4, PF, (Flublock) 07/05/2021 Seasonal Influenza, Trivalen t, (IIV3), with Preserv, (Fluzone) 06/12/2022,06/24/2019,06/13/2017,06/20,07/13/2011 Seasonal Influenza, Trivalen t, Adjuvanted, 65+ YRS, PF, (Fluad) 06/12/2022 TD - Tetanus/Diptheria (ADULT) 03/20/2013 TDAP, Age 7 and older, IM (Adacel) 03/10/2018 Zoster Vaccine Recombinant (Shingrix) 06/06/2018 ,04/02/2018 [...] encounter Miscellaneous Notes * Addendum Note - Naz Hall, HSYANN - 06/12/2024 11:57 AM EDTAddended by: NAZ HALL on: 06/12/2024 11:57 AM Modules accepted: Orders * Telephone Encounter - Kim Lee PHARM Tech - 06/12/2024 10:54 AM EDT Patient requesting refills for Fluticasone Propionate 50 MCG/ACT Nasal Suspension (Flonase). Upon chart review, medication is listed as discontinued, with discontinuation reason as "end of procedure". Please advise if you wish to continue this therapy for the patient. Thank you, Timoteo Lee, Forklift Truck Mechanic Swimming Instructor 1 Centralized Clinical Pharmacy Services (CCPS) (Formerly Telepharmacy) 06/12/2024,10:54 AM documented in this encounter Plan of Treatment Upcoming Encounters Date Type Department Care Team (Late st Contact Info) Description 06/17/2024 2:20 PM EDT Office Visit [facility], [place] [address] [place] [address] Linda Baeza DO [address] [place] [address] 06/24/2024 10:10 AM EDT Laboratory Laboratory [address] [address] [place] [address] Jennie, Lab [address] [facility] [place] [address] 06/25/2024 9:00 AM EDT Pharmacy Pharmacy Hematology Oncology [place] [address] [place] [address] [facility] [place] [facility] Hem/Onc [facility] [place] [address] 06/25/2024 10:00 AM EDT Hem/Onc Treatment Hematology/Oncology Treatment, [place] 200 [facility] [phone] Gemma, Chair 1 Hem Onc [facility] [address] [facility] [place], [place] [address] 07/22/2024 10:00 AM EDT Laboratory Laboratory [place] Jennie Patel [address] [place] [phone] Jennie, Lab [address] [place] [address] 07/23/2024 10:45 AM EDT Office Visit Hematology/Oncology [facility] 200 [facility], [place] [phone] Carlos Pierre MD [address] [facility], [place] [address] 07/23/2024 11:15 AM EDT [facility] [address] [facility], [place] [phone] Gemma, Chair 1 Hem Onc [facility] [address] [facility] [place], [place] [address] 02/11/2025 10:00 AM EDT Nurse Only Ancillary [address], Jennie [address] [place] [address] [place], Nurse Annual Wellness Cold [address] [place] [address] 03/29/2025 10:30 AM EDT Office Visit Urology Ghada Fraser [address] [place] [address] [place] Carlos, Paul Bates MD 27 [place] [address] Health Maintenance Due Date Last Done Comments COVID-19 Vaccine ( season) 2024 02/07/2023, 08/10/2022, 02/08/2022, Additional history exists Albumin/Creatinine Ratio 11/27/2024 11/27/2023, 10/07 CKD PHOS USE SMARTSET 39550 11/27/2024 02/2 10/2023, 10/24/2022, 04/23/2021 GFR 11/27/2024 05/27/2024, 04/06, 03/18/2024, Additional history exists Adult Wellness Visit 02/05/2025 02/06/2024, 12/14/19 23 Depression Screening 02/05/2025 02/06/2024 CKD HGB USE SMARTSET 37049 05/27/202505/27, 05/27/2024, 04/22/2024, Additional history exists DTap/Tdap Vaccines (2 - Td or Tdap) 03/10/2028 03/10/2018, 03/20/2013 Pneumococcal Vaccine: 65+ Years Completed 08/08/2015, 03/20/2013 Zoster Vaccines Completed 06/06/2018, 04/02/2018 Influenza Vaccine (FLU shot) Completed 01/2024, 05/31/2023, 06/12/2022, Additional history exists HPV (Gardasil) Vaccine Aged Out No lo nger eligible based on patient's age to complete this topic Hepatitis B Vaccine Aged Out No longe r eligible based on patient's age to complete this topic MENINGOCOCCAL (MENACTRA/MENVEO) Aged Out No longer eligible based on patient's age to complete this topic documented as of this encounter Medical Devices Implanted Type Area Canvas Goods Maker Device Identifier Shelf Expiration Date Model / Serial / Lot Intraocular Lens Implanted:Qty: 1 on 01/12/2016 by Amari Loomis MD at OR [facility] Right: Eye 11/06/2018 MX60+11.0 / [id number] / [id number] documented as of this encounter Visit Diagnoses Diagnosis Asthma, moderate persistent- Primary Unspecified asthma documented in this encounter Advance Directives * Full Code (Latest Code Status on File) Date Activated Date Inactivated Comments 01/12/2016 9:49 AM 01/12/2016 3:56 PM This order ref lects the patients wishes and were consensually agreed upon. Care Teams Sales Effectiveness Manager Relationship Specialty Start Date End Date Linda Baeza DO [address] [facility] [place] [address] PCP - General Family Medicine 09/11/22 documented as of this encounter
--- OUTSIDE RECORDS SUMMARY | 2024-12-05 15:22 | External Medical Summary | Summary of Care ---
Author Name Unknown Organization [facility] Address [address] [place] [address] Phone [phone] Care Team Providers Care Commercial Lines Manager Name Role Phone Linda Baeza DO Primary Care Provider +1- [phone] Reason for Visit * Reason Onset Date Comments Medication Refill 06/12/2024 Encounter Details Date Type Department Care Team (Late st Contact Info) Description 06/12/2024 Telephone Family Practice [facility] [address] [place] [address] Linda Baeza DO [address] [place] [address] Medication Refill Allergies Active Allergy Reactions Criticality [...] by mouth 1 Tablet daily . Active [place] 3 1000 MG Oral Capsule Take by mouth daily . Active Saline 0.65 % Nasal Solution Administer 1 [place] into nostril as needed for Congestion. Active [...] solution 2.5 mgIndications:Multifoca l pneumonia,LULI (mycobacterium avium-intracellulare) ([facility]),Bronchiectasis with acute exacerbation ([facility]) 2.5 mg NEBULIZER ONCE PRN [...] mRNA, LNP-s, No Pre serve, 2-Dose Series (Hazelcast) 06/07/2021,12/14/2020,11/23/2020 COVID-19, LNP-s, No Preserve , William-sucrose, [...] 18 years and over) Not on file 3 Are you (or your family) caity eless [...] Miscellaneous Notes * Telephone Encounter - Kim Lee, brush or broom cutter - 06/12/2024 10:54 AM EDT Patient requesting refills for Fluticasone Propionate 50 MCG/ACT Nasal Suspension (Flonase). Upon chart review, medication is listed as discontinued, with discontinuation reason as "end of procedure". Please advise if you wish to continue this therapy for the patient. Thank you, Timoteo Lee, Power Builder Developer Director Of Casework Services 1 Centralized Clinical Pharmacy Services (CCPS) (Formerly Telepharmacy) 06/12/2024,10:54 AM documented in this encounter Plan of Treatment Upcoming Encounters Date Type Department Care Team (Late st Contact Info) Description 06/17/2024 2:20 PM EDT [facility] [address] [place] [address] Linda Baeza DO [address] [place] [address] 06/24/2024 10:10 AM EDT Laboratory Laboratory [place] Jennie Patel [address] [place] [phone] Jonatan Schneider [place] Jorge [address] [place] [address] 06/25/2024 9:00 AM EDT Pharmacy Pharmacy Hematology Oncology [facility] [address] [place] [address] [facility] Hem/Onc [address] [place] [address] 06/25/2024 10:00 AM EDT Hem/Onc Treatment Hematology/Oncology Treatment, [place] [address] [place] [address] Gemma, Chair 1 Hem Onc [address] [facility] [place] [address] 07/22/2024 10:00 AM EDT Laboratory Laboratory [place] Jennie Patel [address] [place] [phone] Jennie [facility] [place] [address] [place] [place] [address] 07/23/2024 10:45 AM EDT Office Visit Hematology/Oncology [facility] [place] [address] [facility] [place] [address] Carlos Pierre MD [address] [facility] [place] [address] 07/23/2024 11:15 AM EDT Hem/Onc Treatment Hematology/Oncology Treatment, [place] 200 [facility], [place] [address] Gemma, Chair 1 Hem Onc [address] [place] [address] 02/11/2025 10:00 AM EDT Nurse Only Ancillary [place] Jennie Patel [address] [place] [address] [place], Nurse Annual Wellness Cold [address] [place] [address] 03/29/2025 10:30 AM EDT Office Visit Urology Ghada Fraser [address] [facility] [address] [place] [address] Paul Ha Jr., MD [address] [place] [address] Health Maintenance Due Date Last Done Comments COVID-19 Vaccine ( season) 2024 02/07/2023, 08/10/2022, 02/08/2022, Additional history exists Albumin/Creatinine Ratio 11/27/2024 11/27/2023, 10/07 CKD PHOS USE SMARTSET 05612 11/27/2024 02/2 10/2023, 10/24/2022, 04/23/2021 GFR 11/27/2024 05/27/2024, 04/06, 03/18/2024, Additional history exists Adult Wellness Visit 02/05/2025 02/06/2024, 12/14/19 23 Depression Screening 02/05/2025 02/06/2024 CKD HGB USE SMARTSET 98717 05/27/202505/27, 05/27/2024, 04/22/2024, Additional history exists DTap/Tdap [...] this encounter Medical Devices Implanted Type Area Devil Tender Device Identifier Shelf Expiration Date Model / Serial / Lot Intraocular Lens Implanted:Qty: 1 on 01/12/2016 by Amari Loomis MD at OR [facility] Right: Eye 11/06/2018 MX60+11.0 / [id number] / [id number] documented as of this encounter Advance Directives * Full Code (Latest Code Status on File) Date Activated Date Inactivated Comments 01/12/2016 9:49 AM 01/12/2016 3:56 PM This order ref lects the patients wishes and were consensually agreed upon. Care Teams Commercial Lines Manager Relationship Specialty Start Date End Date Linda Baeza DO [address] [facility] [place] [address] PCP - General Family Medicine 09/11/22 documented as of this encounter
--- OUTSIDE RECORDS SUMMARY | 2024-12-05 15:22 | External Medical Summary | Summary of Care ---
Author Name Unknown Organization [facility] Address [address] [place] [address] Phone [phone] Care Team Providers Care Import Customs Clearing Agent Name Role Phone Linda Baeza DO Primary Care Provider [phone]- [phone] Reason for Visit * Reason Comments IV Therapy IVIG * Episode Based Medications (Routine) - Authorized Specialty Diagnoses / Procedures Referred By Soham t Referred To Contact Diagnoses CLL (chronic lymphocytic leukemia) (HCC) Hypogammaglobulinemia (HCC) Procedures [place] INJ IVIG PRIVIGEN 500 MG Carlos Pierre MD [address] [place] [address] Anc Hem/Onc Junior Menendez DEPT CLOSED - 08/20/23 200 [facility] [place] [address] Referral ID Status Reason Start Date Expiration Date V isits Requested Visits Authorized [id number] Authorized 05/14/2023 04/21/[phone] Encounter Details Date Type Department Care Team (Latest Contact Info) Description 05/28/2024 10:00 AM EDT Hem/Onc Treatment Hematology/Oncology Treatment, [place] [address] [place] [address] Gemma, Chair 6 Hem Onc Scenery [address] [place] [address] CLL (chronic lymphocytic leukemia) (HCC)*; Hypogammaglobulinem ia [...] by mouth 1 Tablet daily . Active [place] 3 1000 MG Oral Capsule Take by mouth daily . Active Saline 0.65 % Nasal Solution Administer 1 [place] into nostril as needed for Congestion. Active CoQ10 100 MG Oral Capsule Take by mouth daily. Active Benefiber Drink Mix Oral Packet Take 1 Dose by mouth daily. Active Privigen 40 GM/400ML Intravenous Solution (Immune Globulin Human-IVIG 10%) Administer 40 g intravenously Every Month. Every 28 days Active Acalabrutinib 100 MG Oral Capsule (Calquence)Indicat ions:CLL (chronic lymphocytic leukemia) ([facility]) Take 100 mg by [...] solution 2.5 mgIndications:Multifoca l pneumonia,LULI (mycobacterium avium-intracellulare) ([facility]),Bronchiectasis with acute exacerbation ([facility]) 2.5 mg NEBULIZER ONCE PRN [...] mRNA, LNP-s, No Pre serve, 2-Dose Series (OpGen) 06/07/2021,12/14/2020,11/23/2020 COVID-19, LNP-s, No Preserve , William-sucrose, [...] (Fluzone HD) 06/21/2020,06/24/2019,07/07/2018 Seasonal Influenza, Quadriva lent Hd, 65+ Yrs [...] 07/01/2023 Does the household have a re lar [...] Sign Reading Time Taken Comments Blood Pressure 149/73 05/28/2024 10:06 AM EDT Pulse 60 05/28/2024 10:06 AM EDT Temperature 36.1 C (97 F) 05/28/2024 10:06 AM EDT Respiratory Rate 18 05/28/2024 10:06 AM EDT Oxygen Saturation 97% 05/28/2024 10:06 AM EDT Inhaled Oxygen Concentration - - Weight 69.9 kg (154 lb 3.2 oz) 05/28/2024 10:06 AM EDT Height - - Body Mass Index 22.13 02/06/2024 10:02 AM EDT documented in this encounter Functional [...] as of this encounter Nursing Notes * Ara Winkler RN - 05/28/2024 3:48 PM EDT Pt completed treatment without issues. IV removed. Goals: Pt will remain free from injury. Possible barriers to meeting goals: risk of reaction, pt is a high fall risk Stability of the patient: Moderately stable - low risk of patient condition declining or worsening Summary regarding today's goals: Met: . Pt remained free from injury during treatment today. Discharged in stable condition. * Ara Winkler RN - 05/28/2024 11:09 AM EDT Chair 9, Privigen. Pt reports feeling well today, and has no new symptoms/concerns at this time. Ptreported feeling symptomatic after missing 1-2 doses of Calquence while on vacation (see TE); symptoms reviewed with [facility] pharmacist Jovanna Calderon. Pt has resumed taking medication and reports symptoms resolved early last week. PIV established; NSS infusing. Safety and Risk for Injury Patient will remain free from injury. Ensure appropriate safety devices are available. Provide and maintain safe environment. documented in this encounter Plan of Treatment Upcoming Encounters Date Type Department Care Team (Late st Contact Info) Description 06/17/2024 2:20 PM EDT Office Visit [facility] [address] [place] [address] Linda Baeza, [address] [place] [address] 06/24/2024 10:10 AM EDT Laboratory [facility] [address] [place] [phone] Jonatan Schneider [place] [address] [place] [address] 06/25/2024 9:00 AM EDT Pharmacy Pharmacy Hematology Oncology [facility] [address] [place] [address] [facility] Hem/Onc [address] [place] [address] 06/25/2024 10:00 AM EDT Hem/Onc Treatment Hematology/Oncology Treatment, [place] [address] [place] [address] Gemma, Chair 1 Hem Onc Scenery [address] [place] [address] 07/22/2024 10:00 AM EDT Laboratory Laboratory [address] [place] [phone] Jonatan Schneider [place] [address] [place] [address] 07/23/2024 10:45 AM EDT Office Visit Hematology/Oncology [facility] [place] 200 [facility] [place] [address] Carlos Pierre MD 200 [facility] [place], [place] [address] 07/23/2024 11:15 AM EDT Hem/Onc Treatment Hematology/Oncology Treatment, [place] 200 [facility] [place], [place] [address] Gemma, Chair 1 Hem Onc [facility] 200 [facility] [place], [place] [address] 02/11/2025 10:00 AM EDT Nurse Only Ancillary [place] Jennie Patel [address] [place] [address] [place], Nurse Annual Wellness [address] [place] [address] 03/29/2025 10:30 AM EDT Office Visit Urology Ghada Fraser [address] [place] [address] [place] Carlos, Paul Bates MD [address] [place] [id number] Health Maintenance Due Date Last Done Comments COVID-19 Vaccine ( season) 2024 02/07/2023, 08/10/2022, 02/08/2022, Additional history exists Albumin/Creatinine Ratio 11/27/2024 11/27/2023, 10/07 CKD PHOS USE SMARTSET 75813 11/27/2024 0210/2023, 10/24/2022, 04/23/2021 GFR 11/27/2024 05/27/2024, 04/06, 03/18/2024, Additional history exists Adult Wellness Visit 02/05/2025 02/06/2024, 12/14/19 23 Depression Screening 02/05/2025 02/06/2024 CKD HGB USE SMARTSET 50011 05/27/202505/27, 05/27/2024, 04/22/2024, Additional history exists DTap/Tdap [...] encounter Medical Devices Implanted Type Area Certified First Assistant Device Identifier Shelf Expiration Date Model / Serial / Lot Intraocular Lens Implanted:Qty: 1 on 01/12/2016 by Amari Loomis MD at OR [facility] Right: Eye 11/06/2018 MX60+11.0 / [id number] / [id number] documented as of this encounter Visit Diagnoses [...] infusion reaction with IVIG, Starting on Andreina 05/28/24 at 1130, Until Andreina 05/28/24 at 1949, Maximum of 4 grams (4000 mg) per day. Given 05/28/2024 10:35 AM EDT 650 mg diphenhydrAMINE (Benadryl) cap 25 mg 25 mg, Oral, ONCE PRN If previous infusion reaction with IVIG, Starting on Andreina 05/28/24 at 1130, Until Andreina 05/28/24 at 1949 Given 05/28/2024 10:35 AM EDT 25 mg Immune Globulin Human- IVIG 10% (Privigen) IV 20 g 20 g, IV Piggyback, ONCE, 1 dose, On Andreina 05/28/24 at 1300, PRIVIGEN infusion instructions Infusion Rate [...] rate of the previous vial Start Infusion 05/28/2024 12:11 PM EDT 20 g 350 mL/hr Immune Globulin Human-IVIG 10% (Privigen) IV 10 g 10 g, IV Piggyback, ONCE, 1 dose, On Andreina 05/28/24 at 1200, PRIVIGEN infusion instructions Infusion Rate [...] rate of the previous vial Rate Change 05/28/2024 11:54 AM EDT 175 mL/hr Rate Change 05/28/2024 11:36 AM EDT 88 mL/hr Rate Change 05/28/2024 11:18 AM EDT 44 mL/hr NSS infusion 500 mL, Intravenous, at 100 mL/hr Administer over 10 Hours, CONTINUOUS, Starting on Andreina 05/28/24 at 1130, Until Andreina 05/28/24 at 1949 Start Infusion 05/28/2024 10:29 AM EDT 500 mL 100 mL/hr documented in this encounter Advance Directives * Full Code (Latest Code Status on File) Date Activated Date Inactivated Comments 01/12/2016 9:49 AM 01/12/2016 3:56 PM This order ref lects the patients wishes and were consensually agreed upon. Care Teams Import Customs Clearing Agent Relationship Specialty Start Date End Date Linda Baeza DO [address] [facility] [place] [address] PCP - General Family Medicine 09/11/22 documented as of this encounter
--- OUTSIDE RECORDS SUMMARY | 2024-12-05 15:22 | External Medical Summary | Summary of Care ---
Author Name Unknown Organization [facility] Address [address] [place] [address] Phone [phone] Care Team Providers Care Director Of Casework Name Role Phone Linda Baeza DO Primary Care Provider [phone]- [phone] Reason for Visit * Reason Comments Infusion IVIG * Episode Based Medications (Routine) - Authorized Specialty Diagnoses / Procedures Referred By Contpauly t Referred To Contact Diagnoses CLL (chronic lymphocytic leukemia) (HCC) Hypogammaglobulinemia (HCC) Procedures [place] INJ IVIG PRIVIGEN 500 MG Carlos Pierre MD [address] [place], [place] [address] Anc Hem/Onc Junior Menendez DEPT CLOSED - 08/20/23 200 [facility] [place] [address] Referral ID Status Reason Start Date Expiration Date V isits Requested Visits Authorized [id number] Authorized 05/14/2023 04/21/[phone] Encounter Details Date Type Department Care Team (Latest Contact Info) Description 06/25/2024 10:00 AM EDT Hem/Onc Treatment Hematology/Oncology Treatment, [place] [address] [place] [address] Gemma, Chair 2 Hem Onc Scenery [address] [place] [address] CLL (chronic lymphocytic leukemia) (HCC)*; Hypogammaglobulinem ia (HCC) Allergies Active Allergy Reactions Criticality Noted Date Comments Meperidine Hcl 02/19/2019 Lamotrigine Other (Please comment) Medium 07/19/2021 Causes patient to fall. Rofecoxib 11/06/2004 rash &swelling in legs, stumbling (vioxx) documented as of this encounter (statuses as of 07/20/2024) Medications Medication Sig Dispensed Refills Start Date End Date Status NATURAL SUPPLEMENTIndicati ons:Per Pt: to prevent arthritis Take by mouth. Vinegar/Honey Daily 0 0 07/12/2005 Active Probiotic Product (PROBIOTIC ACIDOPHILUS BIOBEADS) Capsule Take 1 Capsule by mouth in the morning. Active Multiple Vitamins-Minerals (MULTIVITAMIN MEN 50+) TABS Take by mouth 1 Tablet daily . Active [place] 3 1000 MG Oral Capsule Take by mouth daily . Active Saline 0.65 % Nasal Solution Administer 1 [place] into nostril as needed for Congestion. Active CoQ10 100 MG Oral Capsule Take by mouth daily. Active Benefiber Drink Mix Oral Packet Take 1 Dose by mouth daily. Active Privigen 40 GM/400ML Intravenous Solution (Immune Globulin Human-IVIG 10%) Administer 40 g intravenously Every Month. Every 28 days Active Acalabrutinib 100 MG Oral Capsule (Calquence)Indicat ions:CLL (chronic lymphocytic leukemia) ([facility]) Take 100 mg by mouth in [...] as of this encounter (statuses as of 07/20/2024) Active Problems Problem Noted Date Diagnosed Date [...] as of this encounter (statuses as of 07/20/2024) Resolved Problems Problem Noted Date Diagnosed Date [...] as of this encounter (statuses as of 07/20/2024) Immunizations Name Administration Dates Next Due COVID-19 mRNA, LNP-s, No Pre serve, 2-Dose Series (Jobzle) 06/07/2021,12/14/2020,11/23/2020 COVID-19, LNP-s, No Preserve , William-sucrose, Ages 12+ (Pfizer) 02/08/2022 COVID-19, MRNA-LNP, 24-25, P F, 50 MCG/0.5ML, IM, 12 YRS & ABOVE (Moderna - Spikevax) 06/10/2024,02/07/2024 COVID-19, MRNA-LNP, 24-25, P R, 30MCG/0.3ML, IM, 12YRS AND ABOVE (Jobzle-Comirnaty) 07/11/2023 COVID-19, mRNA, LNP-s, PF, B ooster, 100mcg/0.5mg (Moderna) 02/07/2023,08/02/2021 Covid-19, Mrna, Lnp-s, Pf, B ivalent, 30 Mcg, IM, 12 yrs and above (Jobzle) 08/10/2022 Pneumococcal Conjugate Vacc, 13 Valent (Prevnar) [...] Description 07/22/2024 10:00 AM EDT [facility] [address] [facility] [place] [phone] Jennie [facility] [address] [place] [address] 07/23/2024 10:45 AM EDT Office Visit Hematology/Oncology [facility] [place] [address] [facility] [place] [phone] Carlos Pierre MD 200 [facility] [place] [address] 07/23/2024 11:15 AM EDT Hem/Onc Treatment Hematology/Oncology Treatment, [place] [address] [place] [phone] Gemma, Chair 9 Hem Onc Scenery [address] [place] [address] 08/20/2024 9:00 AM [facility] Pharmacy Pharmacy Hematology Oncology [place] [address] [place] [address] [facility] Hem/Onc [facility] [place] [address] 02/11/2025 10:00 AM EDT Nurse Only Ancillary [place] Jennie Patel [address] [place] [address] [place], Nurse Annual Wellness Cold [address] [place] [address] 03/29/2025 10:30 AM EDT Office Visit Urology Ghada Fraser [address] [place] [address] Paul Ha Jr., MD [address] [place] [phone] 04/01/2025 11:00 AM EDT Office Visit Family Practice [address] [place] [address] Linda Baeza, [address] [place] [address] Health Maintenance Due Date Last Done Comments Albumin/Creatinine Ratio 11/27/2024 11/27/2023, 10/07 CKD PHOS USE SMARTSET 76065 11/27/202411/08, 10/24/2022, 04/23/2021 GFR 12/22/2024 06/24/2024, 05/08, 04/22/2024, Additional history exists Adult Wellness Visit 02/05/2025 02/06/2024, 12/14/19 23 CKD HGB USE SMARTSET [address] 06/24/202506/24, 06/24/2024, 05/27/2024, Additional history exists Depression [...] this encounter Medical Devices Implanted Type Area Fast Food Delivery Driver Device Identifier Shelf Expiration Date Model / Serial / Lot Intraocular Lens Implanted:Qty: 1 on 01/12/2016 by Amari Loomis MD at [facility] Right: Eye 11/06/2018 MX60+11.0 / [id number] / [id number] documented as of this encounter Visit Diagnoses [...] and were consensually agreed upon. Care Teams Director Of Casework Relationship Specialty Start Date End Date Linda Baeza DO [address] [facility] [place] [address] PCP - General Family Medicine 09/11/22 documented as of this encounter
--- OUTSIDE RECORDS SUMMARY | 2024-12-05 15:22 | External Medical Summary | Summary of Care ---
Author Name Unknown Organization [facility] Address [address] [place] [address] Phone [phone] Care Team Providers Care Director Of Sustainable Design Name Role Phone Linda Baeza DO Primary Care Provider [phone]- [phone] Reason for Visit * Reason Comments Infusion IVIG * Episode Based Medications (Routine) - Authorized Specialty Diagnoses / Procedures Referred By Contpauly t Referred To Contact Diagnoses CLL (chronic lymphocytic leukemia) (HCC) Hypogammaglobulinemia (HCC) Procedures [place] INJ IVIG PRIVIGEN 500 MG Carlos Pierre MD [address] [place], [place] [address] Anc Hem/Onc Junior Menendez DEPT CLOSED - 08/20/23 200 [facility] [place] [address] Referral ID Status Reason Start Date Expiration Date V isits Requested Visits Authorized [id number] Authorized 05/14/2023 04/21/[phone] Encounter Details Date Type Department Care Team (Latest Contact Info) Description 06/25/2024 10:00 AM EDT Hem/Onc Treatment Hematology/Oncology Treatment, [place] [address] [place] [address] Gemma, Chair 2 Hem Onc Scenery [address] [place] [address] CLL (chronic lymphocytic leukemia) (HCC)*; Hypogammaglobulinem ia [...] by mouth 1 Tablet daily . Active [place] 3 1000 MG Oral Capsule Take by [...] Oral Capsule (Calquence)Indicat ions:CLL (chronic lymphocytic leukemia) ([facility]) Take 100 mg by mouth [...] mRNA, LNP-s, No Pre serve, 2-Dose Series (Preferred Systems Solutions) 06/07/2021,12/14/2020,11/23/2020 COVID-19, LNP-s, No Preserve , William-sucrose, Ages 12+ (Pfizer) 02/08/2022 COVID-19, MRNA-LNP, 24-25, P F, 50 MCG/0.5ML, IM, 12 YRS & ABOVE (Moderna - Spikevax) 06/10/2024,02/07/2024 COVID-19, MRNA-LNP, 24-25, P R, 30MCG/0.3ML, IM, 12YRS AND ABOVE (Preferred Systems Solutions-Comirnaty) 07/11/2023 COVID-19, mRNA, LNP-s, PF, B ooster, 100mcg/0.5mg (Moderna) 02/07/2023,08/02/2021 Covid-19, Mrna, Lnp-s, Pf, B ivalent, 30 Mcg, IM, 12 yrs and above ([employer]) 08/10/2022 Pneumococcal Conjugate Vacc, 13 Valent (Prevnar) [...] Patient instructed on the risk of potential ynaez while using the heat function. Goals: patient [...] Description 07/22/2024 10:00 AM EDT [facility] [address] [facility] [place] [address] [facility] [address] [place] [address] 07/23/2024 10:45 AM EDT Office Visit Hematology/Oncology [facility] [place] [address] [facility] [place] [phone] Carlos Pierre MD 200 [facility] [place] [address] 07/23/2024 11:15 AM EDT Hem/Onc Treatment Hematology/Oncology Treatment, [place] [address] [place] [phone] Gemma, Chair 9 Hem Onc Scenery [address] [place] [address] 08/20/2024 9:00 AM [facility] Pharmacy Pharmacy Hematology Oncology [place] [address] [place] [address] [facility] Hem/Onc [facility] [place] [address] 02/11/2025 10:00 AM EDT Nurse Only Ancillary [place] Jennie Patel [address] [place] [address] [place], Nurse Annual Wellness Cold [address] [place] [address] 03/29/2025 10:30 AM EDT Office Visit Urology Ghada Fraser [address] [place] [address] Paul Ha Jr., MD [address] [place] [phone] 04/01/2025 11:00 AM EDT Office Visit Family Practice [address] [place] [address] Linda Baeza, [address] [place] [address] Health Maintenance Due Date Last Done Comments Albumin/Creatinine Ratio 11/27/2024 11/27/2023, 10/07 CKD PHOS USE SMARTSET 86379 11/27/202411/08, 10/24/2022, 04/23/2021 GFR 12/22/2024 06/24/2024, 05/08, 04/22/2024, Additional history exists Adult Wellness Visit 02/05/2025 02/06/2024, 12/14/19 23 CKD HGB USE SMARTSET 97926 06/24/202506/24, 06/24/2024, 05/27/2024, Additional history exists Depression [...] this encounter Medical Devices Implanted Type Area Aerial Crop Duster Device Identifier Shelf Expiration Date Model / Serial / Lot Intraocular Lens Implanted:Qty: 1 on 01/12/2016 by Amari Loomis MD at [facility] Right: Eye 11/06/2018 MX60+11.0 / [id number] / [id number] documented as of this encounter Visit Diagnoses [...] consensually agreed upon. Care Teams Director Of Sustainable Design Relationship Specialty Start Date End Date Linda Baeza DO [address] [facility] [place] [address] PCP - General Family Medicine 09/11/22 documented as of this encounter
--- OUTSIDE RECORDS SUMMARY | 2024-12-05 15:22 | External Medical Summary | Summary of Care ---
Author Name Unknown Organization [facility] Address [address] [place] [address] Phone [phone] Care Team Providers Care Traveling Phlebotomist Name Role Phone Linda Baeza DO Primary Care Provider +1- [phone] Reason for Visit * Reason Comments Medication Management Encounter Details Date Type Department Care Team (Late st Contact Info) Description 06/25/2024 9:00 AM EDT Pharmacy Pharmacy Hematology Oncology [facility] [address] [place] [address] [facility], [facility] Hem/Onc [address], [place] [id number] CLL (chronic lymphocytic leukemia) ([facility])* Allergies Active Allergy Reactions Criticality Noted Date [...] by mouth 1 Tablet daily . Active [place] 3 1000 MG Oral Capsule Take by mouth daily . Active Saline 0.65 % Nasal Solution Administer 1 [place] into nostril as needed for Congestion. Active [...] mgIndications:Multifoca l pneumonia,LULI (mycobacterium avium-intracellulare) ([facility]),Bronchiectasis with acute exacerbation ([facility]) 2.5 mg NEBULIZER ONCE PRN 08/21/2023 08/20/2024 [...] mRNA, LNP-s, No Pre serve, 2-Dose Series (Power2Switch) 06/07/2021,12/14/2020,11/23/2020 COVID-19, LNP-s, No Preserve , William-sucrose, [...] encounter Progress Notes * Jovanna Calderon, [facility] - 06/25/2024 8:15 AM EDT MEDICATION THERAPY MANAGEMENT ACALABRUTINIB TREATMENT PROGRESS NOTE Tano Aj [id number] Patient Phone Numbers : Caitlin Communication: Left message requesting return call to assess toleration to therapy Treatment: Medication: Acalabrutinib (Calquence) Indication: CLL Dose: 100 mg BID ( 06/14/22) Administration: +/- food Start Date: 04/30/22 Primary Vice President Diversity/Oncologist: Dr. Ihsan Pierre Supportive Care Meds: None [...] in conjunction with IVIG infusions Admitted to [facility] 06/27/23-06/30/23 for viral pneumonia Admitted to [facility] 08/10/23-08/15/23 for respiratory distress Per TE 05/18/24, pt without acalabrutinib 05/14/24-05/17/24 due to traveling and experiencing withdrawal symptoms Per CM encounter 05/28/24, symptoms have since resolved Per TE 06/11/24, pt reports receiving annual influenza and covid boosters Changes to medication list since last visit? No Assessment and Plan: WBC/ALC elevated but declining All other labs stable Continue current therapy and monthly labs (next due with OV) Assessment of compliance: N/A Assessment of adverse effects attributed to drug therapy: N/A Dose adjustment needed based on lab or adverse drug reaction? No Follow up: 4 weeks OV/labs; 8 weeks MTM with labs Jovanna Calderon, PharmD, BCOP Clinical Pharmacist, [facility] Oral Chemotherapy [facility] 06/25/2024, 1:10 PM Pertinent Labs: Latest Reference Range & Units 04/22/24 09:51 05/27/24 10:04 06/24/24 09:53 WBC 4.00 - 10.80 K/uL 8.72 23.68 (H) 14.07 (H) RBC 4.50 - 5.25 M/uL 3.81 3.75 3.66 HGB 14.0 - 16.8 g/dL 12.7 (L) 12.3 (L) 12.0 (L) HCT 40.0 - 48.4 % 38.5 (L) 37.4 (L) 37.4 (L) MCV 82.0 - 99.5 fL 101.0 99.7 102.2 MCH 27.0 - 34.0 pg 33.3 32.8 32.8 MCHC 32.0 - 36.0 g/dL 33.0 32.9 32.1 RDW 11.5 - 15.5 % 13.2 14.4 15.4 PLT 140 - 400 K/uL 185 177 174 MPV 6.6 - 11.1 fL 10.6 11.9 11.0 CBC WITH WBC DIFFERENTIAL Rpt ! Rpt ! Rpt ! Absolute Neutrophils 1.80 - 7.70 K/uL 3.83 4.26 4.78 Absolute Lymphocytes 1.00 - 4.80 K/uL 4.43 18.47 (H) 8.86 (H) Serum creatinine: 1.2 mg/dL 06/24/24 0953 Estimated creatinine clearance: 49.5 mL/min Latest Reference Range & Units 04/22/24 09:51 05/27/24 10:04 06/24/24 09:53 Albumin 3.8 - 5.0 g/dL 4.1 4.2 4.2 AST 10 - 50 U/L 20 20 21 ALT 10 - 50 U/L 16 27 16 Alkaline Phosphatase 35 - 130 U/L 80 91 81 Bilirubin, Total <=1.2 mg/dL 0.2 0.4 0.3 Time Spent on Encounter: 6 - [...] Description 07/22/2024 10:00 AM EDT [facility] [address] [facility] [place] [phone] [facility] [address] [facility] [place] [address] 07/23/2024 10:45 AM EDT Office Visit Hematology/Oncology [facility] [place] [address] [facility] [place] [address] Carlos Pierre MD [address] [facility] [place] [address] 07/23/2024 11:15 AM EDT Hem/Onc Treatment Hematology/Oncology Treatment, [place] [address] [place] [address] Gemma, Chair 1 Hem Onc [facility] [address] [facility] [place] [address] 08/20/2024 9:00 AM [facility] Pharmacy Pharmacy Hematology Oncology [facility] [address] [place] [address] [facility], [facility] Hem/Onc [address] [place] [address] 02/11/2025 10:00 AM EDT Nurse Only Ancillary [address], [place] [address] [place] [address] [place], Nurse Annual Wellness [place] [address] [place] [address] 03/29/2025 10:30 AM EDT Office Visit Urology Ghada Fraser [address] [place] [address] Paul Ha Jr., MD [address] [place] [address] 04/01/2025 11:00 AM EDT Office Visit [facility] [address] [place] [address] Linda Baeza DO [address] [place] [address] Health Maintenance Due Date Last Done Comments Albumin/Creatinine Ratio 11/27/2024 11/27/2023, 10/07 CKD PHOS USE SMARTSET 17002 11/27/202411/08, 10/24/2022, 04/23/2021 GFR 12/22/2024 06/24/2024, 05/08, 04/22/2024, Additional history exists Adult Wellness Visit 02/05/2025 02/06/2024, 12/14/19 23 Depression Screening 02/05/2025 02/06/2024 CKD HGB USE SMARTSET 95445 06/24/202506/24, 06/24/2024, 05/27/2024, Additional history exists DTap/Tdap [...] this encounter Medical Devices Implanted Type Area Lining Repairer Device Identifier Shelf Expiration Date Model / Serial / Lot Intraocular Lens Implanted:Qty: 1 on 01/12/2016 by Amari Loomis MD at OR [facility] Right: Eye 11/06/2018 MX60+11.0 / [id number] / [id number] documented as of this encounter Visit Diagnoses Diagnosis CLL (chronic lymphocytic leukemia) (HCC)- Primary Chronic lymphoid leukemia, without mention of having achieved remission documented in this encounter Advance Directives * Full Code (Latest Code Status on File) Date Activated Date Inactivated Comments 01/12/2016 9:49 AM 01/12/2016 3:56 PM This order ref lects the patients wishes and were consensually agreed upon. Care Teams Traveling Phlebotomist Relationship Specialty Start Date End Date Linda Baeza DO [address] [facility] [place] [address] PCP - General Family Medicine 09/11/22 documented as of this encounter
--- OUTSIDE RECORDS SUMMARY | 2024-12-05 15:22 | External Medical Summary ---
Author Name Unknown Address Unknown Organization K01:LABORATORY [facility] [place] - [address] [facility] [address] Laboratory Report Ordering Provider Test Date Status KASSIDY RADFORD 06/24/2024 09:53:01 Final Observation Date Value Abnormality Reference (Units ) Status Neutrophils/100 leukocytes in Blood by Manual count 06/24/2024 09:53:01 34.0 Below low normal 40.0-75.0 (%) Final Lymphocytes/100 leukocytes in Blood by Manual count 06/24/2024 09:53:01 63.0 Above high normal 18.0-42.0 (%) Final Monocytes/100 leukocytes in Blood by Manual count 06/24/2024 09:53:01 2.0 1.0-11.0 (%) Final Myelocytes/100 leukocytes in Blood by Manual count 06/24/2024 09:53:01 1.0 Above high normal <=0.0 (%) Final Neutrophils [#/volume] in Blood by Manual count 06/24/2024 09:53:01 4.78 1.80-7.70 (K/uL) Final Lymphocytes [#/volume] in Blood by Manual count 06/24/2024 09:53:01 8.86 Above high normal 1.00-4.80 (K/uL) Final Monocytes [#/volume] in Blood by Manual count 06/24/2024 09:53:01 0.28 0.00-1.10 (K/uL) Final Myelocytes [#/volume] in Blood by Manual count 06/24/2024 09:53:01 0.14 Above high normal <=0.00 (K/uL) Final Performing Location LAB[facility]ORY [facility] [address] [facility] [address]
--- OUTSIDE RECORDS SUMMARY | 2024-12-05 15:23 | External Medical Summary | Summary of Care ---
Author Name Unknown Organization [facility] Address [address] [place] [address] Phone [phone] Care Team Providers Care Weapons Mechanic Name Role Phone Linda Baeza DO Primary Care Provider +1- [phone] Reason for Visit * Reason Comments IV Therapy IVIG * Episode Based Medications (Routine) - Authorized Specialty Diagnoses / Procedures Referred By Soham t Referred To Contact Diagnoses CLL (chronic lymphocytic leukemia) (HCC) Hypogammaglobulinemia (HCC) Procedures UT INJ IVIG PRIVIGEN 500 MG Carlos Pierre MD [address] [place] [address] Anc Hem/Onc Junior Menendez DEPT CLOSED - 08/20/23 [address] [facility] [place] [address] Referral ID Status Reason Start Date Expiration Date V isits Requested Visits Authorized [id number] Authorized 05/14/2023 04/21/[phone] Encounter Details Date Type Department Care Team (Latest Contact Info) Description 05/28/2024 10:00 AM EDT Hem/Onc Treatment Hematology/Oncology Treatment, [place] [address] [place] [address] Gemma, Chair 6 Hem Onc [address] [place] [address] CLL (chronic lymphocytic leukemia) (HCC)*; Hypogammaglobulinem ia [...] by mouth 1 Tablet daily . Active [place] 3 1000 MG Oral Capsule Take by mouth daily . Active Saline 0.65 % Nasal Solution Administer 1 [place] into nostril as needed for Congestion. Active CoQ10 100 MG Oral Capsule Take by mouth daily. Active Benefiber Drink Mix Oral Packet Take 1 Dose by mouth daily. Active Privigen 40 GM/400ML Intravenous Solution (Immune Globulin Human-IVIG 10%) Administer 40 g intravenously Every Month. Every 28 days Active Acalabrutinib 100 MG Oral Capsule (Calquence)Indicat ions:CLL (chronic lymphocytic leukemia) ([facility]) [...] solution 2.5 mgIndications:Multifoca l pneumonia,LULI (mycobacterium avium-intracellulare) ([facility]),Bronchiectasis with acute exacerbation ([facility]) 2.5 mg NEBULIZER ONCE PRN 08/21/2023 08/20/2024 [...] mRNA, LNP-s, No Pre serve, 2-Dose Series (Popular Pays) 06/07/2021,12/14/2020,11/23/2020 COVID-19, LNP-s, No Preserve , William-sucrose, [...] on vacation (see TE); symptoms reviewed with [facility] pharmacist Jovanna Calderon. Pt has resumed [...] Description 06/17/2024 2:20 PM EDT Office Visit [facility] [address] [place] [address] Linda Baeza, [address] [place] [address] 06/24/2024 10:10 AM EDT Laboratory Laboratory [address] [place] [phone] Jonatan Schneider [address] [place] [address] 06/25/2024 9:00 AM EDT Pharmacy Pharmacy Hematology Oncology [facility] [address] [place] [address] [facility] Hem/Onc [address] [place] [address] 06/25/2024 10:00 AM EDT Hem/Onc Treatment Hematology/Oncology Treatment, [place] [address] [place] [address] Gemma, Chair 1 Hem Onc Sc[address] [place] [address] 07/22/2024 10:00 AM EDT Laboratory Laboratory [place] [address] [place] [phone] Jonatan Schneider [address] [place] [address] 07/23/2024 10:45 AM EDT Office Visit Hematology/Oncology [facility] [place] [address] [facility] [place] [address] Carlos Pierre MD [address] [facility] [place], [place] [address] 07/23/2024 11:15 AM EDT Hem/Onc Treatment Hematology/Oncology Treatment, [place] [address] [facility] [place], [place] [address] Gemma, Chair 1 Hem Onc [facility] [address] [facility] [place], [place] [address] 02/11/2025 10:00 AM EDT Nurse Only Ancillary [place] [address] [place] [address] [place], Nurse Annual Wellness [address] [place] [address] 03/29/2025 10:30 AM EDT Office Visit Urology Ghada Fraser [address] [place] [address] [place] Carlos, Paul Bates MD [address] [place] [id number] Health Maintenance Due Date Last Done Comments COVID-19 Vaccine ( season) 2024 02/07/2023, 08/10/2022, 02/08/2022, Additional history exists Albumin/Creatinine Ratio 11/27/2024 11/27/2023, 10/07 CKD PHOS USE SMARTSET 34173 11/27/2024 0210/2023, 10/24/2022, 04/23/2021 GFR 11/27/2024 05/27/2024, 04/06, 03/18/2024, Additional history exists Adult Wellness Visit 02/05/2025 02/06/2024, 12/14/19 23 Depression Screening 02/05/2025 02/06/2024 CKD HGB USE SMARTSET 88673 05/27/202505/27, 05/27/2024, 04/22/2024, Additional history exists DTap/Tdap [...] encounter Medical Devices Implanted Type Area Surgical Coordinator Device Identifier Shelf Expiration Date Model / Serial / Lot Intraocular Lens Implanted:Qty: 1 on 01/12/2016 by Amari Loomis MD at OR [facility] Right: Eye 11/06/2018 MX60+11.0 / [id number] / [id number] documented as of this encounter Visit Diagnoses [...] and were consensually agreed upon. Care Teams Weapons Mechanic Relationship Specialty Start Date End Date Linda Baeza DO [address] [facility] [place] [address] PCP - General Family Medicine 09/11/22 documented as of this encounter
--- OUTSIDE RECORDS SUMMARY | 2024-12-05 15:23 | External Medical Summary | Summary of Care ---
Author Name Unknown Organization [facility] Address [address] [place] [address] Phone [phone] Care Team Providers Care Sales Force Developer Name Role Phone Linda Baeza DO Primary Care Provider +1- [phone] Reason for Visit * Reason Onset Date Comments FYI 06/11/2024 Encounter Details Date Type Department Care Team (Late st Contact Info) Description 06/11/2024 Telephone Family Practice [facility] [address] [place] [address] Linda Baeza DO [address] [place] [address] Allergies Active Allergy Reactions Criticality Noted Date Comments Meperidine Hcl 02/19/2019 Lamotrigine Other (Please comment) Medium 07/19/2021 Causes patient to fall. Rofecoxib 11/06/2004 rash &swelling in legs, stumbling (vioxx) documented as of this encounter (statuses as of 06/11/2024) Medications Medication Sig Dispensed Refills Start Date End Date Status NATURAL SUPPLEMENTIndicati ons:Per Pt: to prevent arthritis Take by mouth. Vinegar/Honey Daily 0 0 07/12/2005 Active Probiotic Product (PROBIOTIC ACIDOPHILUS BIOBEADS) Capsule Take 1 Capsule by mouth in the morning. Active Multiple Vitamins-Minerals (MULTIVITAMIN MEN 50+) TABS Take by mouth 1 Tablet daily . Active Ryde 3 1000 MG Oral Capsule Take by mouth daily . Active Saline 0.65 % Nasal Solution Administer 1 [place] into nostril as needed for Congestion. Active [...] solution 2.5 mgIndications:Multifoca l pneumonia,LULI (mycobacterium avium-intracellulare) ([facility]),Bronchiectasis with acute exacerbation ([facility]) 2.5 mg NEBULIZER ONCE PRN 08/21/2023 08/20/2024 Active documented as of this encounter (statuses as of 06/11/2024) Active Problems Problem Noted Date Diagnosed Date [...] as of this encounter (statuses as of 06/11/2024) Resolved Problems Problem Noted Date Diagnosed Date [...] as of this encounter (statuses as of 06/11/2024) Immunizations Name Administration Dates Next Due COVID-19 mRNA, LNP-s, No Pre serve, 2-Dose Series (Pro V&V) 06/07/2021,12/14/2020,11/23/2020 COVID-19, LNP-s, No Preserve , William-sucrose, [...] encounter Miscellaneous Notes * Telephone Encounter - Naz Lucero LPN - 06/11/2024 10:37 AM EDT documented * Telephone Encounter - Aaron Dejesus OSA - 06/11/2024 10:27 AM EDT Pt.'s Caitlin Called and stated that he received his Flu vaccine yesterday, 06/10/24 at [facility] in [place]. Flu Zone High-Dose 0.5 ML. Patient's also stated that he received the latest COVID-19 vaccine as well at that time. Enrrique Vx 50 MCG Moderna. documented in this encounter Plan of Treatment Upcoming Encounters Date Type Department Care Team (Late st Contact Info) Description 06/17/2024 2:20 PM EDT Office Visit [facility] [address], [place] [address] [place] [address] Linda Baeza, [address] [place] [address] 06/24/2024 10:10 AM EDT Laboratory Laboratory [address] [place] [phone] [place], [address] [place] [address] 06/25/2024 9:00 AM EDT Pharmacy Pharmacy Hematology Oncology [place] [address] [place] [address] [facility] Hem/Onc [address] [place] [address] 06/25/2024 10:00 AM EDT Hem/Onc Treatment Hematology/Oncology Treatment, [place] [address] [place] [address] Gemma, Chair 1 Hem Onc [address] [facility] [address] 07/22/2024 10:00 AM EDT Laboratory Laboratory [place] [address] [place] [phone] [place] [address] 07/23/2024 10:45 AM EDT Office Visit Hematology/Oncology [facility] [address] [place] [facility] [place] [address] Carlos Pierre MD [address] [place] [address] 07/23/2024 11:15 AM EDT Hem/Onc Treatment Hematology/Oncology Treatment, [place] [address] [place] [address] Gemma, Chair 1 Hem Onc [facility] [address] [facility], [place] [address] 02/11/2025 10:00 AM EDT Nurse Only Ancillary [place] [address] [place] [address] [place], Nurse Annual Wellness [place] [address] [place] [address] 03/29/2025 10:30 AM EDT Office Visit Urology Ghada Fraser [address] [place] [address] Paul aH Jr., MD [address] [place] [address] Health Maintenance Due Date Last Done Comments COVID-19 Vaccine (2022- season) 2024 02/07/2023, 08/10/2022, 02/08/2022, Additional history exists Albumin/Creatinine Ratio 11/27/2024 11/27/2023, 10/07 CKD PHOS USE SMARTSET 52221 11/27/2024 02/2 10/2023, 10/24/2022, 04/23/2021 GFR 11/27/2024 05/27/2024, 04/06, 03/18/2024, Additional history exists Adult Wellness Visit 02/05/2025 02/06/2024, 12/14/19 23 Depression Screening 02/05/2025 02/06/2024 CKD HGB USE SMARTSET 85046 05/27/202505/27, 05/27/2024, 04/22/2024, Additional history exists DTap/Tdap [...] Medical Devices Implanted Type Area Professor Of Chemistry Device Identifier Shelf Expiration Date Model / Serial / Lot Intraocular Lens Implanted:Qty: 1 on 01/12/2016 by Amari Loomis MD at OR [facility] Right: Eye 11/06/2018 MX60+11.0 / [id number] / [id number] documented as of this encounter Advance Directives * Full Code (Latest Code Status on File) Date Activated Date Inactivated Comments 01/12/2016 9:49 AM 01/12/2016 3:56 PM This order ref lects the patients wishes and were consensually agreed upon. Care Teams Sales Force Developer Relationship Specialty Start Date End Date Linda Baeza DO [address] [facility] [place] [address] PCP - General Family Medicine 09/11/22 documented as of this encounter
--- OUTSIDE RECORDS SUMMARY | 2024-12-05 15:23 | External Medical Summary | Summary of Care ---
Author Name Unknown Organization [facility] Address [address] [place] [address] Phone [phone] Care Team Providers Care Broke Man Name Role Phone Linda Baeza DO Primary Care Provider [phone]- [phone] Reason for Visit * Reason Comments IV Therapy IVIG * Episode Based Medications (Routine) - Authorized Specialty Diagnoses / Procedures Referred By Soham t Referred To Contact Diagnoses CLL (chronic lymphocytic leukemia) (HCC) Hypogammaglobulinemia (HCC) Procedures [place] INJ IVIG PRIVIGEN 500 MG Carlos Pierre MD [address] [place] [address] Anc Hem/Onc Junior Menendez DEPT CLOSED - 08/20/23 [address] [facility] [place] [address] Referral ID Status Reason Start Date Expiration Date V isits Requested Visits Authorized [id number] Authorized 05/14/2023 04/21/[id number] Encounter Details Date Type Department Care Team (Latest Contact Info) Description 05/28/2024 10:00 AM EDT Hem/Onc Treatment Hematology/Oncology Treatment, [place] [address] [place] [address] Gemma, Chair 6 Hem Onc Scenery [address] [place] [id number] CLL (chronic lymphocytic leukemia) (HCC)*; Hypogammaglobulinem ia [...] by mouth 1 Tablet daily . Active Norris 3 1000 MG Oral Capsule Take by mouth daily . Active Saline 0.65 % Nasal Solution Administer 1 [place] into nostril as needed for Congestion. Active CoQ10 100 MG Oral Capsule Take by mouth daily. Active Benefiber Drink Mix Oral Packet Take 1 Dose by mouth daily. Active Privigen 40 GM/400ML Intravenous Solution (Immune Globulin Human-IVIG 10%) Administer 40 g intravenously Every Month. Every 28 days Active Acalabrutinib 100 MG Oral Capsule (Calquence)Indicat ions:CLL (chronic lymphocytic leukemia) ([facility]) Take 100 mg by mouth in [...] l pneumonia,LULI (mycobacterium avium-intracellulare) ([facility]),Bronchiectasis with acute exacerbation ([facility]) 2.5 mg NEBULIZER ONCE PRN 08/21/2023 08/20/2024 [...] mRNA, LNP-s, No Pre serve, 2-Dose Series ([employer]) 06/07/2021,12/14/2020,11/23/2020 COVID-19, LNP-s, No Preserve , [...] on vacation (see TE); symptoms reviewed with [facility] pharmacist Jovanna Calderon. Pt has resumed [...] Description 06/17/2024 2:20 PM EDT Office Visit [facility] [address] [place] [address] Linda Baeza, [address] [place] [address] 06/24/2024 10:10 AM EDT Laboratory Laboratory [address] [place] [phone] Jonatan Schneider [place] [address] [place] [address] 06/25/2024 9:00 AM EDT Pharmacy Pharmacy Hematology Oncology [facility] [address] [place] [address] [facility], [facility] Hem/Onc [address] [place] [address] 06/25/2024 10:00 AM EDT Hem/Onc Treatment Hematology/Oncology Treatment, [place] [address] [place] [address] Gemma, Chair 1 Hem Onc Scenery [address] [place] [address] 07/22/2024 10:00 AM EDT Laboratory Laboratory [address] [place] [address] [place] [phone] Jonatan Schneider [place] [address] [place] [address] 07/23/2024 10:45 AM EDT Office Visit Hematology/Oncology [facility] [place] [address] [place] [address] Carlos Pierre MD [address] [facility] [place], [place] [address] 07/23/2024 11:15 AM EDT Hem/Onc Treatment Hematology/Oncology Treatment, [place] [address] [facility] [place], [place] [address] Gemma, Chair 1 Hem Onc [facility] [address] [facility] [place], [place] [address] 02/11/2025 10:00 AM EDT Nurse Only Ancillary [place] [address] [place] [address] [place], Nurse Annual Wellness Cold [address] [place] [address] 03/29/2025 10:30 AM EDT Office Visit Urology Ghada Fraser [address] [place] [address] Leland Carlos, Paul Bates MD [address] [place] [id number] Health Maintenance Due Date Last Done Comments COVID-19 Vaccine ( season) 2024 02/07/2023, 08/10/2022, 02/08/2022, Additional history exists Albumin/Creatinine Ratio 11/27/2024 11/27/2023, 10/07 CKD PHOS USE SMARTSET 97157 11/27/2024 0210/2023, 10/24/2022, 04/23/2021 GFR 11/27/2024 05/27/2024, 04/06, 03/18/2024, Additional history exists Adult Wellness Visit 02/05/2025 02/06/2024, 12/14/19 23 Depression Screening 02/05/2025 02/06/2024 CKD HGB USE SMARTSET 41185 05/27/202505/27, 05/27/2024, 04/22/2024, Additional history exists DTap/Tdap [...] this encounter Medical Devices Implanted Type Area Obgyn Nurse Device Identifier Shelf Expiration Date Model / Serial / Lot Intraocular Lens Implanted:Qty: 1 on 01/12/2016 by Amari Loomis MD at OR [facility] Right: Eye 11/06/2018 MX60+11.0 / [id number] / [id number] documented as of this encounter Visit Diagnoses [...] and were consensually agreed upon. Care Teams Broke Man Relationship Specialty Start Date End Date Linda Baeza DO [address] [facility] [place] [address] PCP - General Family Medicine 09/11/22 documented as of this encounter
--- OUTSIDE RECORDS SUMMARY | 2024-12-05 15:23 | External Medical Summary | Summary of Care ---
Author Name Unknown Organization [facility] Address [address] [place] [address] Phone [phone] Care Team Providers Care Legal Collector Name Role Phone Linda Baeza DO Primary Care Provider [phone]- [phone] Reason for Visit * Reason Comments IV Therapy IVIG * Episode Based Medications (Routine) - Authorized Specialty Diagnoses / Procedures Referred By Soham t Referred To Contact Diagnoses CLL (chronic lymphocytic leukemia) (HCC) Hypogammaglobulinemia (HCC) Procedures [place] INJ IVIG PRIVIGEN 500 MG Carlos Pierre MD [address] [place] [address] Anc Hem/Onc Junior Menendez DEPT CLOSED - 08/20/23 200 [facility] [place] [address] Referral ID Status Reason Start Date Expiration Date V isits Requested Visits Authorized [id number] Authorized 05/14/2023 04/21/[phone] Encounter Details Date Type Department Care Team (Latest Contact Info) Description 05/28/2024 10:00 AM EDT Hem/Onc Treatment Hematology/Oncology Treatment, [place] [address] [place] [address] Gemma, Chair 6 Hem Onc Scenery [address] [place] [address] CLL (chronic lymphocytic leukemia) (HCC)*; Hypogammaglobulinem ia [...] by mouth 1 Tablet daily . Active Stigler 3 1000 MG Oral Capsule Take by mouth daily . Active Saline 0.65 % Nasal Solution Administer 1 [place] into nostril as needed for Congestion. Active CoQ10 100 MG Oral Capsule Take by mouth daily. Active Benefiber Drink Mix Oral Packet Take 1 Dose by mouth daily. Active Privigen 40 GM/400ML Intravenous Solution (Immune Globulin Human-IVIG 10%) Administer 40 g intravenously Every Month. Every 28 days Active Acalabrutinib 100 MG Oral Capsule (Calquence)Indicat ions:CLL (chronic lymphocytic leukemia) ([facility]) Take 100 mg by mouth in the [...] (mycobacterium avium-intracellulare) ([facility]),Bronchiectasis with acute exacerbation ([facility]) 2.5 mg NEBULIZER ONCE PRN 08/21/2023 08/20/2024 [...] mRNA, LNP-s, No Pre serve, 2-Dose Series ([employer]) 06/07/2021,12/14/2020,11/23/2020 COVID-19, LNP-s, No Preserve , [...] on vacation (see TE); symptoms reviewed with [facility] pharmacist Jovanna Calderon. Pt has resumed taking [...] Description 06/17/2024 2:20 PM EDT Office Visit [facility] [address] [place] [address] Linda Baeza, [address] [place] [address] 06/24/2024 10:10 AM EDT Laboratory [address] [place] [phone] Jonatan Schneider [place] [address] [place] [address] 06/25/2024 9:00 AM EDT Pharmacy Pharmacy Hematology Oncology [facility] [address] [place] [address] [facility], [facility] Hem/Onc [address] [place] [address] 06/25/2024 10:00 AM EDT Hem/Onc Treatment Hematology/Oncology Treatment, [place] [address] [place] [address] Gemma, Chair 1 Hem Onc Scenery [address] [place] [address] 07/22/2024 10:00 AM EDT Laboratory Laboratory [address] [place] [phone] Jonatan Schneider [place] [address] [place] [address] 07/23/2024 10:45 AM EDT Office Visit Hematology/Oncology [facility] [place] [address] [facility] [place] [address] Carlos Pierre MD [address] [facility] [place], [place] [address] 07/23/2024 11:15 AM EDT Hem/Onc Treatment Hematology/Oncology Treatment, [place] [address] [facility] [place], [place] [address] Gemma, Chair 1 Hem Onc [facility] [address] [facility] [place], [place] [address] 02/11/2025 10:00 AM EDT Nurse Only Ancillary [place] [address] [address] [place] [address] [place], Nurse Annual Wellness Cold [address] [place] [address] 03/29/2025 10:30 AM EDT Office Visit Urology Ghada Fraser [address] [place] [address] Leland Carlos, Paul Bates MD [address] [place] [phone] Health Maintenance Due Date Last Done Comments COVID-19 Vaccine ( season) 2024 02/07/2023, 08/10/2022, 02/08/2022, Additional history exists Albumin/Creatinine Ratio 11/27/2024 11/27/2023, 10/07 CKD PHOS USE SMARTSET 22249 11/27/2024 0210/2023, 10/24/2022, 04/23/2021 GFR 11/27/2024 05/27/2024, 04/06, 03/18/2024, Additional history exists Adult Wellness Visit 02/05/2025 02/06/2024, 12/14/19 23 Depression Screening 02/05/2025 02/06/2024 CKD HGB USE SMARTSET 22697 05/27/202505/27, 05/27/2024, 04/22/2024, Additional history exists DTap/Tdap [...] encounter Medical Devices Implanted Type Area Director Patient Financial Services Device Identifier Shelf Expiration Date Model / Serial / Lot Intraocular Lens Implanted:Qty: 1 on 01/12/2016 by Amari Loomis MD at OR [facility] Right: Eye 11/06/2018 [id number] / [id number] / [id number] documented as of this encounter Visit Diagnoses [...] and were consensually agreed upon. Care Teams Legal Collector Relationship Specialty Start Date End Date Linda Baeza DO [address] [facility] [place] [address] PCP - General Family Medicine 09/11/22 documented as of this encounter
--- NOTE | 2024-12-05 16:07 | Emergency Department Note ---
History of Present Illness General Chief complaint: Swelling/Edema to Extremity Stated complaint: EDEMA ON LT SIDE OF NECK Time Seen by Provider: 12/05/24 15:54 History of Present Illness This is a 79-year-old male that presents to the emergency department via private vehicle with complaints of "left-sided neck swelling". The patient noted this yesterday. He has also noticed increased nebulizer use for the lungs over the past 7 days. No trauma. No injury. No fevers or chills. Slight increased work of breathing. No chest pain. Does have history of CLL and follows locally with Dr. Pierre. He notes the left side of the neck although swollen, is not painful. Mildly tender to palpation. Home Medications Medication Instructions Recorded Confirmed Type Flutter Valve #1 ea 11/29/21 05/20/24 Rx acalabrutinib 100 mg capsule 400 mg PO Q12H 06/06/22 05/20/24 History (Calquence) omega-3 fatty acids 1,000 mg 1,000 mg PO DAILY 06/06/22 05/20/24 History capsule Vinegar Tea See Rx Instructions .Route .COMPLEX 01/04/23 05/20/24 History Privigen 40 g IV .EVERY 28 DAYS 06/27/23 05/20/24 History coenzyme Q10 100 mg capsule (Co 100 mg PO DAILY 06/27/23 05/20/24 History Q-10) diphenhydramine 25 1 tab PO HS PRN Sleep 06/27/23 05/20/24 History mg-acetaminophen 500 mg tablet (Tylenol PM Extra Strength) fluticasone propionate 50 1 spray intranasal DAILY 06/27/23 05/20/24 History mcg/actuation nasal spray,suspension (Allergy Relief (fluticasone)) multivitamin with minerals 1 tab PO DAILY 06/27/23 05/20/24 History (Multiple Vitamin-Minerals tablet) Probiotic Acidophilus Biobeads 1 cap PO DAILY 11/07/23 05/20/24 History finasteride 5 mg tablet 5 mg PO DAILY 11/07/23 05/20/24 History vit C 250 mg-vit E 90 mg-zinc 40 1 tab PO BID 05/20/24 05/20/24 History mg-copper 1 af-kojvho-talbqt capsule (PreserVision AREDS-2) fluticasone furoate 200 1 inh inhalation QAM #60 ea 05/21/24 05/21/24 Rx mcg-vilanterol 25 mcg/dose inhalation powder (Breo Ellipta) levalbuterol HCl 1.25 mg/3 mL 1.25 mg (3 mL) inhalation Q4H PRN 12/04/24 Rx solution for nebulization shortness of breath #72 mL Allergies Allergy/AdvReac Type Severity Reaction Status Date / Time rofecoxib Allergy Intermediate RASH,SWELLING, Verified 05/20/24 11:16 UNSTEADY GAIT/STUMBLING lamotrigine [From Lamictal] AdvReac Mild cannot Unverified 05/20/24 11:16 think straight, stumbling and falling. meperidine AdvReac Mild Vomiting Unverified 05/20/24 11:16 Past Med/Surg History Problem List Acute hypoxemic respiratory failure (Acute) Vomiting Viral pneumonia Epilepsy Bronchiectasis LULI (mycobacterium avium-intracellulare) (Acute) Pneumonia (Acute) Cough (Acute) Hypogammaglobulinemia Splenomegaly Pneumonia LULI (mycobacterium avium-intracellulare) Leukemoid reaction Leukocytosis (Acute) Dyspnea (Acute) Anemia (Acute) History of TB (tuberculosis) Asthma CLL (chronic lymphocytic leukemia) (Acute) Multifocal pneumonia (Acute) Abnormal chest CT Medical History Pulmonary LULI (mycobacterium avium-intracellulare) infection Tuberculosis Asthma BPH (benign prostatic hyperplasia) UTI (urinary tract infection) Surgical History History of tonsillectomy and adenoidectomy H/O vasectomy [place] teeth removed S/P TURP 2019 History of bronchoscopy Social History Smoking Status: Never smoker Second Hand Exposure: No; Do You Dip or Chew Tobacco: No; Hx Alcohol Use: No Hx Substance Use: No Preferred Language: Palauan Communication Ability: Effective [place] Required: No Beliefs That Will Affect Care: Orthodoxy Current Living Situation: Spouse Feels Safe at Home: Yes Assistive Devices: None Review of Systems A total of 10 systems reviewed and were otherwise negative Physical Exam Vital Signs Vital Signs - 24 hr 12/05/24 15:05 12/05/24 17:19 12/05/24 17:38 Temperature 36.2 C L Temperature Source Temporal Artery Scan Pulse Rate 61 57 L Pulse Rate [Apical] 59 L Pulse Strength Normal Respiratory Rate 18 19 Respiratory Effort / Characteristics Non-Labored Spontaneous Respiratory Depth Normal Respiratory Pattern Regular Blood Pressure 120/56 L Blood Pressure [Right Arm] 137/56 L Blood Pressure Mean 77 Blood Pressure Mean [Right Arm] 83 Blood Pressure Position Sitting Blood Pressure Position [Right Arm] Semi-fowlers Pulse Oximetry 96 92 Oxygen Delivery Method Room Air Room Air Sepsis Recent Fever Within 48 Hours No Sepsis New/Unexplained Change in Mental Status No Sepsis Action Taken by Nursing No Action Required 12/05/24 17:38 12/05/24 17:38 Temperature Temperature Source Pulse Rate 59 L Pulse Rate [Apical] Pulse Strength Respiratory Rate 19 Respiratory Effort / Characteristics Respiratory Depth Respiratory Pattern Blood Pressure Blood Pressure [Right Arm] Blood Pressure Mean Blood Pressure Mean [Right Arm] Blood Pressure Position Blood Pressure Position [Right Arm] Pulse Oximetry 92 92 Oxygen Delivery Method Room Air Room Air Sepsis Recent Fever Within 48 Hours Sepsis New/Unexplained Change in Mental Status Sepsis Action Taken by Nursing VITAL SIGNS - Vital signs and nursing notes were reviewed. Low normal blood pressure 120/56, otherwise stable and afebrile. GENERAL -79-year-old male appearing his stated age who is in no acute distress. Communicates well with provider and answers questions appropriately. SKIN - Without rashes. No meningeal or petechial rash. HEAD - NC/AT. EYES - PERRL with EOMI bilaterally. Sclera anicteric. NOSE - Midline and without cyanosis. No epistaxis or purulent drainage noted. MOUTH/OROPHARYNX - Without perioral cyanosis. NECK - Neck with FROM. No nuchal rigidity. Left-sided soft tissue edema present near the angle of the mandible and just inferior within the lateral neck region. LUNGS - CTA, mildly diminished breath sounds CARDIAC - RRR EXTREMITIES - No clubbing or peripheral cyanosis. +5/5 strength noted in UE/LE bilaterally. NEUROLOGIC - Cranial nerves II through XII grossly intact. PSYCH -alert, oriented and pleasant on exam. Course Administered Medications Sodium Chloride (Nss) 500 mls @ 500 mls/hr IV .Q1H ONE Stop: 12/05/24 19:23 Last Admin: 12/05/24 18:30 Dose: 500 mls/hr Documented By: MARCUS Discontinued Medications Piperacillin Sod/Tazobactam Sod (Zosyn) 4.5 gm in 100 mls @ 200 mls/hr IV NOW ONE; Protocol Stop: 12/05/24 18:26 Last Admin: 12/05/24 18:30 Dose: 200 mls/hr Documented By: MARCUS Ioversol (Optiray 320 125ml) 115 ml IV ONCE ONE Stop: 12/05/24 16:39 Last Admin: 12/05/24 16:39 Dose: 115 ml Documented By: ERICH Medical Decision Making Laboratory Data 12/05/24 15:08 12/05/24 15:08 Lab Results 12/05/24 Range/Units 15:08 WBC 19.04 H (4.8-10.8) K/ul RBC 3.78 L (4.70-6.10) M/uL Hgb 12.4 L (14.0-18.0) g/dl Hct 36.7 L (42.0-52.0) % MCV 97.1 (80.0-100.0) fL MCH 32.8 (25.0-34.0) pg MCHC 33.8 (32.0-36.0) g/dL RDW Std Deviation 53.9 H (36.4-46.3) fL RDW Coeff of [place] 15.2 H (11.5-14.5) % Plt Count 138 (130-400) K/uL MPV 11.3 (9.4-12.4) fL Immature Gran % (Auto) 0.3 % Neut % (Auto) 14.9 % Lymph % (Auto) 73.3 % [place] % (Auto) 11.0 % Eos % (Auto) 0.3 % Baso % (Auto) 0.2 % Neut # (Auto) 2.82 (1.40-6.50) K/uL Lymph # (Auto) 13.96 H (1.20-3.40) K/uL [place] # (Auto) 2.10 H (0.11-0.59) K/uL Eos # (Auto) 0.06 (0.00-0.50) K/uL Baso # (Auto) 0.04 (0.00-0.20) K/uL Immature Gran # (Auto) 0.06 (0.01-0.20) K/uL Smudge Cells Present PT 10.5 (9.0-12.0) Seconds INR 1.0 (0.9-1.1) APTT 26 (21-31) Seconds PTT Ratio 1.0 Sodium 137 (136-145) mmol/L Potassium 4.4 (3.5-5.1) mmol/L Chloride 108 H (98-107) mmol/L Carbon Dioxide 25 (21-32) mmol/L Anion Gap 4 (3-11) BUN 29 H (6-23) mg/dl Creatinine 1.17 (0.6-1.4) mg/dl Est Cr Clr Drug Dosing 50.3 ml/min eGFR 63.41 BUN/Creatinine Ratio 24.8 H (10-20) Glucose 103 H (70-99(Fasting)) mg/dl Calcium 10.0 (8.6-10.3) mg/dl Total Bilirubin 0.4 (0.2-1.0) mg/dl AST 21 (13-39) U/L ALT 11 (7-52) U/L Alkaline Phosphatase 64 (34-104) U/L Troponin I High Sens 6.4 (0-20) pg/ml Total Protein 6.4 (6.0-8.3) gm/dl Albumin 4.1 (3.4-5.0) gm/dl Globulin 2.3 L (2.5-4.0) gm/dl Albumin/Globulin Ratio 1.8 (0.9-2) Imaging Data Radiologist's Impression: Chest CTA 12/05/24 16:07 HISTORY: Dyspnea. Left-sided neck edema. TECHNIQUE: Helical CT angiography of the chest was performed following 115 mL of Optiray 320 IV contrast. Images are presented in axial and coronal reformats. Coronal and sagittal MIP reconstructions are also provided. COMPARISON: None. FINDINGS: No evidence of acute pulmonary embolism. No evidence of acute aortic process. Mild atherosclerotic vascular disease of the aorta and arch vessels. No thoracic aortic aneurysm. Cardiomegaly. Coronary artery calcifications are present. No suspicious mediastinal or hilar lymph nodes. Hypodense nodules within the right thyroid lobe measuring up to 1.3 cm in diameter require no follow-up. Thoracic esophagus is unremarkable. The included upper abdomen is unremarkable. The soft tissues of the chest wall are unremarkable. Patchy left greater than right basilar airspace opacity concerning for pneumonia.No pneumothorax or pleural effusion. No acute osseous abnormality. IMPRESSION: 1. No evidence of acute pulmonary embolism or acute aortic process. 2. Patchy airspace opacity involving the left greater than right lung base concerning for pneumonia. Follow-up chest CT is recommended in 1 to 2 months to ensure resolution 3. Mild cardiomegaly. Coronary artery calcifications are present. 4. Additional chronic and/or incidental findings as above. Electronically signed by Aaron Quinonez 12-05-2024 5:08 PM Soft Tissue Neck CT 12/05/24 16:07 HISTORY: Left-sided neck edema. TECHNIQUE: Helical CT imaging of the neck was performed following uneventful administration of 115 mL of Optiray 320 IV contrast. Images are presented in axial, sagittal, coronal reformats. COMPARISON: None FINDINGS: The included intracranial contents are unremarkable. Globes and orbits are unremarkable. Postsurgical changes of the maxillary sinus schmid. Paranasal sinus mucosal thickening. Bilateral mastoid effusion.The parotid and submandibular glands are unremarkable. Bilateral thyroid nodules measuring up to 1.3 cm in diameter require no follow-up. The mucosal surfaces of the upper aerodigestive tract are unremarkable. No fluid collection or abscess is identified in the neck. Bilateral cervical lymph nodes are increased in size and number at all cervical levels. A left level 1B lymph node measuring 1.5 x 1.3 cm on series 5 image 62. The included lung apices demonstrate parenchymal scarring, but are otherwise unremarkable. No acute osseous abnormality. Degenerative changes of the spine. IMPRESSION: 1. Bilateral cervical lymph nodes are increased in size and number at all cervical levels. This appearance is nonspecific and could represent reactive lymphadenopathy versus malignant process such as lymphoma or metastatic disease. Clinical correlation is recommended. 2. No fluid collection or abscess is seen in the neck. 3. 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 4. Nonspecific bilateral mastoid effusion. Electronically signed by Aaron Quinonez 12-05-2024 6:01 PM [facility] Narrative Patient was seen and evaluated as above in room CP01. Review was performed of triage nursing notes and vital signs. I did review pertinent previous visits and patient history. After obtaining a thorough history and physical examination the above work up was performed. Patient presents to us today for evaluation of atraumatic left-sided neck swelling. He notes history of similar several years ago when he was first diagnosed with CLL. Currently follows locally with Dr. Pierre for treatment of the CLL. He also notes over the past 7 days a bit of dyspnea noting increased use of his nebulizer. There is no chest pain. No fever. Room EKG reveals normal sinus rhythm at rate of 61 bpm. QTc 398. QRS 96. No ST elevation on this rhythm tracing. Patient does present during period of elevated volume and acuity in the emergency department. Patient was seen in the waiting room area but pulled to room D07 assessment in private. During examination I did note left-sided neck edema just inferior to the left angle of the mandible. Lungs were overall clear to auscultation. I did discuss benefit versus risk of CT imaging with the patient. At this time through shared medical decision making we will proceed with CT of the chest as well as soft tissue neck to further assess symptoms today. Patient then moved to room B07 where he was further evaluated. CT scan of the chest is as above. No PE. No acute aortic process. Per radiologist there is noted patchy airspace opacity involving the left greater than right lung base concerning for pneumonia. Follow-up chest CT is recommended in 1 to 2 months to ensure resolution. Mild cardiomegaly. Coronary artery calcifications are present. I will note that they did, there were no comparisons however there were CTs in the EMR which I did review to compare. CT scan of the neck did result with the lymphadenopathy. Laboratory studies here reveal leukocytosis 19.04 which is elevated compared to previous which was 8.57 in October 2023 per review of the EMR. Mild anemia with hemoglobin of 12.4. Mild elevation of BUN at 29. Procalcitonin and blood cultures added. In regard to antibiotic choice/selection for the pneumonia seen on CT today I did review previous cultures. Multiple sputum cultures were reviewed with multiple showing no growth however most recent was dated 12/30/2021 in regard to positive finding which was Pseudomonas species. Resistances were noted however this was sensitive to PIP/Tazo which I did order here intravenously. It is felt that the benefit outweighed risk. Patient denies any penicillin allergies. Per review of the EMR it appears he has had Zosyn multiple times here before without apparent issue. I do believe that further evaluation and management in the inpatient setting is warranted. Case discussed with the hospitalist service. Please refer to further documentation regarding his stay. GCS: 15 In the evaluation and treatment of this patient the following differential diagnoses were entertained: Pneumonia, OR, dissection, pneumothorax, PE, Lymphadenopathy, malignancy, among others Impression & Plan Pneumonia, Abnormal chest CT, Lymphadenopathy Discharge Plan Visit Data Chief Complaint: Swelling/Edema to Extremity Stated Complaint: EDEMA ON LT SIDE OF NECK ED Provider: Vandana Gómez ED Midlevel Provider: Joni Hare Discharge Problem: Pneumonia, Abnormal chest CT, Lymphadenopathy Patient Disposition: Admitted As Inpatient Condition: Good Forms Stand Alone Forms: My [facility] Prescriptions Prescriptions: No Action levalbuterol HCl 1.25 mg/3 mL solution for nebulization 1.25 mg INHALATION Q4H PRN (Reason: shortness of breath) Qty: 72 0RF (DME) Flutter Valve Device See Rx Instructions .MEDSUPPLY Qty: 1 0RF Rx Instructions: Use it every 6 hours when awake. Calquence 100 mg capsule 400 mg PO Q12H omega-3 fatty acids 1,000 mg capsule 1,000 mg PO DAILY finasteride 5 mg tablet 5 mg PO DAILY PreserVision AREDS-2 250-90-40-1 mg capsule 1 tab PO BID Breo Ellipta 200-25 mcg/dose blister with device 1 inh inhalation QAM Qty: 60 10RF fluticasone propionate [Allergy Relief (fluticasone)] 50 mcg/actuation spray,suspension 1 spray intranasal DAILY Rx Instructions: administer into each nostril once daily Multiple Vitamin-Minerals Tablet 1 tab PO DAILY diphenhydramine-acetaminophen [Tylenol PM Extra Strength] 25-500 mg Tablet 1 tab PO HS PRN (Reason: Sleep) Privigen 40 g IV .EVERY 28 DAYS coenzyme Q10 [Co Q-10] 100 mg Capsule 100 mg PO DAILY Vinegar Tea See Rx Instructions .ROUTE .COMPLEX Rx Instructions: 2 tsp of apple cider vinegar + 1/2 tsp of honey + 12 ounce of water daily Probiotic Acidophilus Biobeads 1 cap PO DAILY Referrals Referrals: Linda Baeza DO [Primary Care Provider] -
[2024-12-05 16:08] LABS: Albumin Globulin Ratio 1.8 (0.9-2); Albumin Level 4.1 gm/dl (3.4-5.0); BUN Creatinine Ratio 24.8 (10-20); Bilirubin,Total 0.4 mg/dl (0.2-1.0); Creatinine Clr Calc Pharmacy 50.3 ml/min; Globulin 2.3 gm/dl (2.5-4.0); Potassium 4.4 mmol/L (3.5-5.1); Total Protein 6.4 gm/dl (6.0-8.3)
[2024-12-05 16:12] LABS: Basophils # (auto) 0.04 K/uL (0.00-0.20); Basophils % (auto) 0.2 %; Eosinophils # (auto) 0.06 K/uL (0.00-0.50); Eosinophils % (auto) 0.3 %; Hematocrit (blood only) 36.7 % (42.0-52.0); Hemoglobin 12.4 g/dl (14.0-18.0); Immature Granulocytes # (auto) 0.06 K/uL (0.01-0.20); Immature Granulocytes % (auto) 0.3 %; Lymphocytes # (auto) 13.96 K/uL (1.20-3.40); Lymphocytes % (auto) 73.3 %; Mean Corpuscular Hemoglobin 32.8 pg (25.0-34.0); Mean Corpuscular Hgb Conc 33.8 g/dL (32.0-36.0); Mean Corpuscular Volume 97.1 fL (80.0-100.0); Mean Platelet Volume 11.3 fL (9.4-12.4); Neutrophils # (auto) 2.82 K/uL (1.40-6.50); Neutrophils % (auto) 14.9 %; Platelet Count 138 K/uL (130-400); RDW Coefficient of Variation 15.2 % (11.5-14.5); RDW Standard Deviation 53.9 fL (36.4-46.3); Red Blood Count 3.78 M/uL (4.70-6.10); Smudge Cells Present; White Blood Count 19.04 K/ul (4.8-10.8)
[2024-12-05 16:14] LABS: Partial Thromboplastin Time 26 Seconds (21-31); Prothrombin Time 10.5 Seconds (9.0-12.0)
[2024-12-05 16:15] LABS: Troponin I High Sensitivity 6.4 pg/ml (0-20)
[2024-12-05] MEDS: OPTIRAY 320 125ml IV ONE (16:39)
--- NOTE | 2024-12-05 17:09 | CT Scan Report ---
HISTORY: Dyspnea. Left-sided neck edema. TECHNIQUE: Helical CT angiography of the chest was performed following 115 mL of Optiray 320 IV contrast. Images are presented in axial and coronal reformats. Coronal and sagittal MIP reconstructions are also provided. COMPARISON: None. FINDINGS: No evidence of acute pulmonary embolism. No evidence of acute aortic process. Mild atherosclerotic vascular disease of the aorta and arch vessels. No thoracic aortic aneurysm. Cardiomegaly. Coronary artery calcifications are present. No suspicious mediastinal or hilar lymph nodes. Hypodense nodules within the right thyroid lobe measuring up to 1.3 cm in diameter require no follow-up. Thoracic esophagus is unremarkable. The included upper abdomen is unremarkable. The soft tissues of the chest wall are unremarkable. Patchy left greater than right basilar airspace opacity concerning for pneumonia.No pneumothorax or pleural effusion. No acute osseous abnormality. IMPRESSION: 1. No evidence of acute pulmonary embolism or acute aortic process. 2. Patchy airspace opacity involving the left greater than right lung base concerning for pneumonia. Follow-up chest CT is recommended in 1 to 2 months to ensure resolution 3. Mild cardiomegaly. Coronary artery calcifications are present. 4. Additional chronic and/or incidental findings as above. Electronically signed by Aaron Quinonez 12-05-2024 5:08 PM
--- NOTE | 2024-12-05 18:10 | CT Scan Report ---
HISTORY: Left-sided neck edema. TECHNIQUE: Helical CT imaging of the neck was performed following uneventful administration of 115 mL of Optiray 320 IV contrast. Images are presented in axial, sagittal, coronal reformats. COMPARISON: None FINDINGS: The included intracranial contents are unremarkable. Globes and orbits are unremarkable. Postsurgical changes of the maxillary sinus schmid. Paranasal sinus mucosal thickening. Bilateral mastoid effusion.The parotid and submandibular glands are unremarkable. Bilateral thyroid nodules measuring up to 1.3 cm in diameter require no follow-up. The mucosal surfaces of the upper aerodigestive tract are unremarkable. No fluid collection or abscess is identified in the neck. Bilateral cervical lymph nodes are increased in size and number at all cervical levels. A left level 1B lymph node measuring 1.5 x 1.3 cm on series 5 image 62. The included lung apices demonstrate parenchymal scarring, but are otherwise unremarkable. No acute osseous abnormality. Degenerative changes of the spine. IMPRESSION: 1. Bilateral cervical lymph nodes are increased in size and number at all cervical levels. This appearance is nonspecific and could represent reactive lymphadenopathy versus malignant process such as lymphoma or metastatic disease. Clinical correlation is recommended. 2. No fluid collection or abscess is seen in the neck. 3. 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 4. Nonspecific bilateral mastoid effusion. Electronically signed by Aaron Quinonez 12-05-2024 6:01 PM
[2024-12-05] MEDS: PIPERACILLIN/TAZOBACTAM 4.5 GM/100 ML BAG IV ONE (18:30)
[2024-12-05] MEDS: SODIUM CHLORIDE 0.9% 500 ML IV ONE (18:30)
--- NOTE | 2024-12-05 18:47 | Emergency Department Note ---
ED Visit Note I was consulted by the Advanced Practice Provider, Joni Hare PA-C. I personally made/approved the management plan and take responsibility for the patient management. I performed a substantive portion of the visit. This includes the aspects of radiology interpretation including pneumonia on CTA. Soft tissue neck imaging is significant for bilateral cervical lymphadenopathy concerning for malignancy versus reactive from pneumonia. Patient will be evaluated by the hospitalist service for admission and further management. Please see previous documentation for further detail of the history, physical and visit. .
--- NOTE | 2024-12-05 19:02 | History & Physical Report ---
Date of Service December 05, 2024 Assessment & Plan (1) Pneumonia: Plan: Assessment/plan Community-acquired pneumonia History of CLL History of IgG deficiency Patient presents to the hospital with shortness of breath and increased use of nebulizer in last 1 week. Also reports left-sided neck swelling. Recent travel to [place] CTA chest shows patchy airspace opacity involving left greater than right lung base concerning for pneumonia CBC reveals elevated WBC count with lymphocytosis; similar to baseline obtain biofire Will start on Zosyn and doxycycline; Continue home inhalers Obtain a sputum culture History of CLLcontinue on acalabrutinib for now; CT of the head and neck shows increase in size and numbers of several lymph nodes; will ask him to follow-up with oncology as outpatient Chronic IgG deficiencycontinue infusion as outpatient every 28 days BPHcontinue on finasteride COPDasthma overlapcontinue on home inhalers; not inexcerebation Full code DVT prophylaxis heparin Time spent evaluating patient, direct bedside care, chart review, placing orders, interpretation of diagnostic studies, discussion with consultants, patient, and family members, as well as other required patient management activities is 75 minutes Please note the above document was generated using voice recognition software. It may contain grammatical, syntax or spelling errors. Any formal questions or concerns about the content, text or information contained within the body of this dictation should be directly addressed to the provider for clarification History of Present Illness Chief Complaint: Shortness of breath for 1 week Left-sided neck swelling for 1 day Primary Care Provider: Linda Baeza DO History obtained from chart review and interview with the patient Past medical history of asthma/COPD overlap, bronchiectasis and chronic IgG deficiency, history of TB, history of B cell CLL, hyperlipidemia and GERD, BPH, stage III CKD, seizure disorder History of CLL on acalabrutinib 100 mg twice a day, on IVIG every month Patient presents to the hospital with left-sided neck swelling. He denies any pain associated with the swelling. He reports that when he was diagnosed with CLL; swelling was significantly larger than right now. He denies any recent trauma. 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 He reports nasal congestion for several days He also noticed slight increased shortness of breath and increased use of nebulizer in last 7 days Patient follows with pulmonology clinic for asthma/COPD overlap, bronchiectasis. Patient denies fever, chills, chest pain, abdominal pain or urinary symptoms. On presentation to the ED, he was afebrile, normotensive and saturating well on room air. WBC [place] 19,000 [place] [id number] CTA chest showed no evidence of PE; patchy airspace opacity involving left greater than right lung base concerning for pneumonia is seen. Soft tissue neck CT showed bilateral cervical lymph node increased in size and number in all cervical levels. Last lab work from November 12, 2024 reviewed; WBC count of 20,000 with [id number] lymphocytes Allergies Allergy/AdvReac Type Severity Reaction Status Date / Time rofecoxib Allergy Intermediate RASH,SWELLING, Verified 05/20/24 11:16 UNSTEADY GAIT/STUMBLING lamotrigine [From Lamictal] AdvReac Mild cannot Unverified 05/20/24 11:16 think straight, stumbling and falling. meperidine AdvReac Mild Vomiting Unverified 05/20/24 11:16 Home Medications Medication Instructions Recorded Confirmed Type Flutter Valve #1 ea 11/29/21 05/20/24 Rx acalabrutinib 100 mg capsule 400 mg PO Q12H 06/06/22 05/20/24 History ([place]) omega-3 fatty acids 1,000 mg 1,000 mg PO DAILY 06/06/22 05/20/24 History capsule Vinegar Tea See Rx Instructions .Route .COMPLEX 01/04/23 05/20/24 History Privigen 40 g IV .EVERY 28 DAYS 06/27/23 05/20/24 History coenzyme Q10 100 mg capsule (Co 100 mg PO DAILY 06/27/23 05/20/24 History Q-10) diphenhydramine 25 1 tab PO HS PRN Sleep 06/27/23 05/20/24 History mg-acetaminophen 500 mg tablet (Tylenol PM Extra Strength) fluticasone propionate 50 1 spray intranasal DAILY 06/27/23 05/20/24 History mcg/actuation nasal spray,suspension (Allergy Relief (fluticasone)) multivitamin with minerals 1 tab PO DAILY 06/27/23 05/20/24 History (Multiple Vitamin-Minerals tablet) Probiotic Acidophilus Biobeads 1 cap PO DAILY 11/07/23 05/20/24 History finasteride 5 mg tablet 5 mg PO DAILY 11/07/23 05/20/24 History vit C 250 mg-vit E 90 mg-zinc 40 1 tab PO BID 05/20/24 05/20/24 History mg-copper 1 dx-embvpt-prlxcl capsule (PreserVision AREDS-2) fluticasone furoate 200 1 inh inhalation QAM #60 ea 05/21/24 05/21/24 Rx mcg-vilanterol 25 mcg/dose inhalation powder (Breo Ellipta) levalbuterol HCl 1.25 mg/3 mL 1.25 mg (3 mL) inhalation Q4H PRN 12/04/24 Rx solution for nebulization shortness of breath #72 mL Past Med/Surg History Problem List Acute hypoxemic respiratory failure (Acute) Vomiting Viral pneumonia Epilepsy Bronchiectasis LULI (mycobacterium avium-intracellulare) (Acute) Pneumonia (Acute) Cough (Acute) Hypogammaglobulinemia Splenomegaly Pneumonia LULI (mycobacterium avium-intracellulare) Leukemoid reaction Leukocytosis (Acute) Dyspnea (Acute) Anemia (Acute) History of TB (tuberculosis) Asthma CLL (chronic lymphocytic leukemia) (Acute) Multifocal pneumonia (Acute) Abnormal chest CT Medical History Pulmonary LULI (mycobacterium avium-intracellulare) infection Tuberculosis Asthma BPH (benign prostatic hyperplasia) UTI (urinary tract infection) Surgical History History of tonsillectomy and adenoidectomy H/O vasectomy [place] teeth removed S/P TURP 2019 History of bronchoscopy Social History Smoking Status: Never smoker Second Hand Exposure: No; Do You Dip or Chew Tobacco: No; Hx Alcohol Use: No Hx Substance Use: No Preferred Language: Salvadorean Communication Ability: Effective Center Hole Reamer Required: No Beliefs That Will Affect Care: [employer] Current Living Situation: Spouse Feels Safe at Home: Yes Assistive Devices: None Physical Exam Physical Exam: constitutional: WD/WN, vitals as above, NAD, sitting up in bed, pleasant, conversing easily Neck: Cervical lymph node palpable; non-tender Respiratory: Bilateral vesicular breath sound Cardiovascular: RRR, no murmur, no edema Vessels: no JVD or carotid bruit Chest: normal inspection of chest Abdomen: normal bowel sounds, soft, nontender, no hepatosplenomegaly Musculoskeletal: no cyanosis or clubbing, extremities motor strength 5/5 Skin: no rashes, warm and dry normal turgor Neurologic: PERRL, EOMI, accommodation nl, no face palsy, no dysarthria CN's II- XI intact bilaterally and moves all extremities Results & Data Results & Data Vital Signs (Past 12 Hours) Vital Signs Temp Pulse Pulse Resp BP BP Pulse Ox 12/05/24 17:38 59 L 19 92 12/05/24 17:38 92 12/05/24 17:38 59 L 19 137/56 L 92 12/05/24 17:19 57 L 12/05/24 15:05 36.2 C L 61 18 120/56 L 96 O2 Del Method 12/05/24 17:38 Room Air 12/05/24 17:38 Room Air 12/05/24 17:38 Room Air 12/05/24 17:19 12/05/24 15:05 Room Air Code Status & VTE Plan VTE Prophylaxis Plan VTE Prophylaxis will be ordered: Yes (1) Pneumonia Laterality: right Lung location: lower lobe of lung Pneumonia type: due to unspecified organism Qualified Code(s): J18.9 - Pneumonia, unspecified organism
[2024-12-05 20:19] LABS: Adenovirus PCR Not Detected (NotDetected); Bordetella parapertussis PCR Not Detected (NotDetected); Bordetella pertussis PCR Not Detected (NotDetected); Chlamydia pneumoniae PCR Not Detected (NotDetected); Coronavirus 229E PCR Not Detected (NotDetected); Coronavirus CoV-2 (COVID19)PCR Not Detected (NotDetected); Coronavirus HKU1 PCR Not Detected (NotDetected); Coronavirus NL63 PCR Not Detected (NotDetected); Coronavirus OC43PCR Not Detected (NotDetected); Human Metapneumovirus PCR Not Detected (NotDetected); Influenza A PCR Not Detected (NotDetected); Influenza B PCR Not Detected (NotDetected); Mycoplasma pneumoniae PCR Not Detected (NotDetected); Parainfluenza Virus 1 PCR Not Detected (NotDetected); Parainfluenza Virus 2 PCR Not Detected (NotDetected); Parainfluenza Virus 3 PCR Not Detected (NotDetected); Parainfluenza Virus 4 PCR Not Detected (NotDetected); Respiratory Syncytial VirusPCR Not Detected (NotDetected); Rhinovirus/Enterovirus PCR DETECTED (NotDetected)
[2024-12-05] MEDS ORDERED: ALUMINUM/MAGNESIUM SUSP 30 ML UDC PO PRN (22:01)
[2024-12-05] MEDS ORDERED: ACETAMINOPHEN 325 MG TAB PO PRN (22:01)
[2024-12-05] MEDS ORDERED: MAGNESIUM HYDROXIDE SUSP 30 ML UDC PO PRN (22:01)
[2024-12-05] MEDS ORDERED: POLYETHYLENE (MIRALAX) 17 GM PACK PO PRN (22:01)
[2024-12-05] MEDS: HEPARIN SOD 5,000 UNIT/0.5 ML VIAL SQ SCH (22:32)
[2024-12-05] MEDS: AZITHROMYCIN 250 MG TAB PO SCH (22:38)
[2024-12-05] MEDS: ALBUT/IPRATROP 3MG/0.5MG NEB 3 ML VIAL NEB SCH (23:20)
[2024-12-05] MEDS: PIPERACILLIN/TAZOBACTAM 4.5 GM/100 ML BAG IV SCH (23:37)
[2024-12-06 06:35] LABS: BUN Creatinine Ratio 16.7 (10-20); Calcium 9.9 mg/dl (8.6-10.3); Creatinine Clr Calc Pharmacy 42.9 ml/min; Potassium 4.5 mmol/L (3.5-5.1)
[2024-12-06 06:53] LABS: Basophils # (auto) 0.04 K/uL (0.00-0.20); Basophils % (auto) 0.2 %; Eosinophils # (auto) 0.07 K/uL (0.00-0.50); Eosinophils % (auto) 0.4 %; Hematocrit (blood only) 37.4 % (42.0-52.0); Hemoglobin 12.4 g/dl (14.0-18.0); Immature Granulocytes # (auto) 0.07 K/uL (0.01-0.20); Immature Granulocytes % (auto) 0.4 %; Lymphocytes # (auto) 14.73 K/uL (1.20-3.40); Lymphocytes % (auto) 74.2 %; Mean Corpuscular Hemoglobin 32.5 pg (25.0-34.0); Mean Corpuscular Hgb Conc 33.2 g/dL (32.0-36.0); Mean Corpuscular Volume 98.2 fL (80.0-100.0); Monocytes # (auto) 2.44 K/uL (0.11-0.59); Monocytes % (auto) 12.3 %; Neutrophils # (auto) 2.49 K/uL (1.40-6.50); Neutrophils % (auto) 12.5 %; Platelet Count 125 K/uL (130-400); RDW Coefficient of Variation 15.4 % (11.5-14.5); RDW Standard Deviation 55.2 fL (36.4-46.3); Red Blood Count 3.81 M/uL (4.70-6.10); White Blood Count 19.84 K/ul (4.8-10.8)
--- NOTE | 2024-12-06 08:08 | Hospitalist Progress Note ---
Date of Service December 06, 2024 Assessment & Plan (1) Pneumonia: Plan: Assessment/plan Community-acquired pneumonia Entero/Rhinovirus History of CLL History of IgG deficiency COPD. Asthma Patient presented to the hospital with shortness of breath and increased use of nebulizer in last 1 week. Also reports left-sided neck swelling. 12/05/24 CTA chest:patchy airspace opacity involving left greater than right lung base concerning for pneumonia Biofire respiratory panel +entero/rhinovirus WBC: 19.8 (19.0 yesterday) On Zosyn and Zithromax. Will continue Continue home inhalers Albuterol neb BID Does not appear to have COPD/asthma exacerbation at this time. No hypoxia Obtain a sputum culture if able History of CLL CT soft tissue neck: 1. Bilateral cervical lymph nodes are increased in size and number at all cervical levels. This appearance is nonspecific and could represent reactive lymphadenopathy versus malignant process such as lymphoma or metastatic disease. 2. No fluid collection or abscess is seen in the neck. 3. 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 4. Nonspecific bilateral mastoid effusion. Possible reactive lymphadenopathy vs known lymphoma Per chart review CT neck 01/26/22 with extensive bilateral cervical lymphadenopathy, right greater than left. Will need further outpatient follow up to monitor Chronic IgG deficiency Continue infusion as outpatient every 28 days BPH Continue on finasteride Full code DVT prophylaxis: SQ heparin Admitted med surg Disposition PCP: Dr Monroe Pt care coordinated with Dr Boudreaux. See addendum I spent a total of 40 minutes reviewing notes, outpatient records, labs, medication, coordinating, documenting and providing care for this patient excluding time spent in the performance of separately billed services and excluding time spent by another provider/QHP. Admission and Anticipated Discharge Date Admission Date: December 05, 2024 Supervising Physician Co-Signing Physician Notes Patient seen and examined independently. Discussed with above provider BioFire positive for rhinovirus Continue on antibiotics for pneumonia Possible DC in a.m. Discussed with patient and patient's at bedside; both are in agreement with the plan. I have reviewed the advanced practitioner's documentation, and I agree with, and take responsibility for the plan of care I spent a total of 15 minutes coordinating, documenting, and providing care for this patient excluding time spent in the performance of separately billed services. All of the aforementioned completed while collaborating with the assigned advanced practitioner for a full treatment plan Subjective Patient seen and examined in room 310-1. Patient sitting in chair across room watching TV. He is ambulating throughout the room without difficulty to bedside chair. He states he has chronic shortness of breath with exertion and feels that that is at baseline. Reports postnasal drip which then triggers a cough. Denies any noted wheezing. He feels the twice daily albuterol nebs are helping. Denies any noted fevers or chills, diaphoresis, N/V/D/C, HINES, dizziness, CP, choking, dysphagia, hemoptysis, abdominal pain, paresthesias, extremity weakness, extremity edema, rashes, urinary symptoms. Review of Systems Review of Systems: All systems reviewed & are unremarkable except as noted in HPI & below Physical Exam Physical Exam: General: no distress, WDWN Head: normocephalic, atraumatic Eyes: conjunctiva non-injected, anicteric ENT: normal inspection external ears, nose, mucous membranes moist Neck: supple, trachea midline, non-tender Lungs: no respiratory distress, +slight rhonchi noted right side that clears after pt coughed, no other wheezing or rales noted CV: RRR, no murmur, no pretibial edema Abd: normal BS, soft, non-tender Ext: no cyanosis, no calf tenderness Neuro: A&O x 3, no focal deficits noted, very pleasant and conversant Skin: warm, dry Results & Data Results & Data Vital Signs (Past 12 Hours) Vital Signs Temp Pulse Pulse Pulse Resp BP BP 12/06/24 07:48 58 L 18 12/05/24 23:20 50 L 18 12/05/24 22:01 12/05/24 22:01 36.5 C 60 20 135/60 12/05/24 22:01 36.5 C 20 135/60 12/05/24 21:37 74 18 124/56 L 12/05/24 21:00 62 18 124/58 L Pulse Ox O2 Del Method 12/06/24 07:48 98 Room Air 12/05/24 23:20 98 Room Air 12/05/24 22:01 Room Air 12/05/24 22:01 96 Room Air 12/05/24 22:01 96 Room Air 12/05/24 21:37 97 Room Air 12/05/24 21:00 96 Room Air Laboratory Results Short CBC 12/05/24 12/06/24 Range/Units 15:08 05:45 WBC 19.04 H 19.84 H (4.8-10.8) K/ul Hgb 12.4 L 12.4 L (14.0-18.0) g/dl Hct 36.7 L 37.4 L (42.0-52.0) % Plt Count 138 125 L (130-400) K/uL BMP 12/05/24 12/06/24 15:08 05:45 Sodium 137 142 Potassium 4.4 4.5 Chloride 108 H 110 H Carbon Dioxide 25 29 BUN 29 H 23 Creatinine 1.17 1.38 Glucose 103 H 77 Calcium 10.0 9.9 Liver Function 12/05/24 Range/Units 15:08 Total Bilirubin 0.4 (0.2-1.0) mg/dl AST 21 (13-39) U/L ALT 11 (7-52) U/L Alkaline Phosphatase 64 (34-104) U/L Albumin 4.1 (3.4-5.0) gm/dl (1) Pneumonia Laterality: right Lung location: lower lobe of lung Pneumonia type: due to unspecified organism Qualified Code(s): J18.9 - Pneumonia, unspecified organism
[2024-12-06] MEDS ORDERED: NON-FORMULARY MEDICATION (Coenzyme Q10 [Co Q-10] 100 mg Capsule) PO SCH (09:00)
[2024-12-06] MEDS: ADVANCED PROBIOTIC 625 MG CAPSULE PO SCH (09:11)
[2024-12-06] MEDS: FINASTERIDE 5 MG TAB PO SCH (09:11)
[2024-12-06] MEDS: OMEGA-3 (PURIFIED FISH OIL) 1 GM CAP PO SCH (09:11)
[2024-12-06] MEDS: CEROVITE ADV FORMULA TAB PO SCH (09:12)
[2024-12-06] MEDS: FLUTICASONE PROPIONATE NA SPR 16 GM BTL SCH (09:12)
[2024-12-06] MEDS: FLUTICASONE/VILANTEROL 200/25MCG 14 PUFFS/INHALER INH SCH (09:12)
[2024-12-06] MEDS: ACALABRUTINIB MALEATE 100 MG PO SCH (10:30)
[2024-12-06 19:27] VITALS: TEMP 98.4
[2024-12-07] MEDS ORDERED: Nursing to Pharmacy Communication SCH (00:45)
[2024-12-07 06:37] LABS: BUN Creatinine Ratio 15.8 (10-20); Calcium 9.9 mg/dl (8.6-10.3); Creatinine Clr Calc Pharmacy 35.9 ml/min
[2024-12-07 06:40] LABS: Hematocrit (blood only) 36.1 % (42.0-52.0); Mean Corpuscular Hemoglobin 32.3 pg (25.0-34.0); Mean Corpuscular Hgb Conc 33.2 g/dL (32.0-36.0); Mean Platelet Volume 11.4 fL (9.4-12.4); Platelet Count 128 K/uL (130-400); RDW Coefficient of Variation 15.2 % (11.5-14.5); RDW Standard Deviation 54.4 fL (36.4-46.3); Red Blood Count 3.72 M/uL (4.70-6.10); White Blood Count 19.36 K/ul (4.8-10.8)
[2024-12-07 07:14] VITALS: RESP 16
[2024-12-07 07:42] LABS: Basophils # (auto) 0.04 K/uL (0.00-0.20); Basophils % (auto) 0.2 %; Eosinophils # (auto) 0.07 K/uL (0.00-0.50); Eosinophils % (auto) 0.4 %; Immature Granulocytes # (auto) 0.08 K/uL (0.01-0.20); Immature Granulocytes % (auto) 0.4 %; Lymphocytes # (auto) 13.99 K/uL (1.20-3.40); Lymphocytes % (auto) 72.3 %; Monocytes # (auto) 2.56 K/uL (0.11-0.59); Monocytes % (auto) 13.2 %; Neutrophils # (auto) 2.62 K/uL (1.40-6.50); Neutrophils % (auto) 13.5 %; Polychromasia 1+; Smudge Cells Present; Target Cells 1+
[2024-12-07 08:10] VITALS: BP 106/62; PULSE 62; O2SAT 96
--- NOTE | 2024-12-07 09:40 | Discharge Summary ---
Discharge Summary Date of Service December 07, 2024 Principal Dx & Hospital Course #1 = Principal Diagnosis (1) Pneumonia: Assessment/plan Community-acquired pneumonia Entero/Rhinovirus History of CLL History of IgG deficiency COPD. Asthma Patient presented to the hospital with shortness of breath and increased use of nebulizer in last 1 week. Also reports left-sided neck swelling. 12/05/24 CTA chest:patchy airspace opacity involving left greater than right lung base concerning for pneumonia Biofire respiratory panel +entero/rhinovirus WBC: 19.8 (19.0 yesterday) Does not appear to have COPD/asthma exacerbation at this time. No hypoxia. Doubt gram negative pna Symptoms have greatly improved and he will be discharged home to complete course of antibiotics. He completed his course of azithromycin while in the hospital. He will complete 4 more days of cefnidir at discharge. Recommend to have repeat CT chest to ensure resolution of opacities History of CLL CT soft tissue neck: 1. Bilateral cervical lymph nodes are increased in size and number at all cervical levels. This appearance is nonspecific and could represent reactive lymphadenopathy versus malignant process such as lymphoma or metastatic disease. 2. No fluid collection or abscess is seen in the neck. 3. 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 4. Nonspecific bilateral mastoid effusion. Possible reactive lymphadenopathy vs known lymphoma Per chart review CT neck 01/26/22 with extensive bilateral cervical lymphadenopathy, right greater than left. Recommend repeat neck CT in 1-2months Chronic IgG deficiency Continue infusion as outpatient every 28 days BPH Continue on finasteride Admitted med surg Disposition: Discharge to home PCP: Dr Monroe Pt care coordinated with Dr Boudreaux. See addendum I spent a total of 38minutes reviewing notes, outpatient records, labs, medication, coordinating, documenting and providing care for this patient excluding time spent in the performance of separately billed services and excluding time spent by another provider/QHP. Notes For Next Care Provider Please repeat renal function panel at hospital follow up. Creatinine at discharge was 1.65. Pt was encouraged to hydrate well upon discharge. Medication Changes From Visit Cefdinir 300mg by mouth BID x 4 more days. Admission HPI Per Admitting Provider History obtained from chart review and interview with the patient Past medical history of asthma/COPD overlap, bronchiectasis and chronic IgG deficiency, history of TB, history of B cell CLL, hyperlipidemia and GERD, BPH, stage III CKD, seizure disorder History of CLL on acalabrutinib 100 mg twice a day, on IVIG every month Patient presents to the hospital with left-sided neck swelling. He denies any pain associated with the swelling. He reports that when he was diagnosed with CLL; swelling was significantly larger than right now. He denies any recent trauma. 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 He reports nasal congestion for several days He also noticed slight increased shortness of breath and increased use of nebulizer in last 7 days Patient follows with pulmonology clinic for asthma/COPD overlap, bronchiectasis. Patient denies fever, chills, chest pain, abdominal pain or urinary symptoms. On presentation to the ED, he was afebrile, normotensive and saturating well on room air. WBC count is 19,000 [place] [id number] CTA chest showed no evidence of PE; patchy airspace opacity involving left greater than right lung base concerning for pneumonia is seen. Soft tissue neck CT showed bilateral cervical lymph node increased in size and number in all cervical levels. Last lab work from November 12, 2024 reviewed; WBC count of 20,000 with [id number] lymphocytes Admission Exam Per Admitting Provider constitutional: WD/WN, vitals as above, NAD, sitting up in bed, pleasant, conversing easily Neck: Cervical lymph node palpable; non-tender Respiratory: Bilateral vesicular breath sound Cardiovascular: RRR, no murmur, no edema Vessels: no JVD or carotid bruit Chest: normal inspection of chest Abdomen: normal bowel sounds, soft, nontender, no hepatosplenomegaly Musculoskeletal: no cyanosis or clubbing, extremities motor strength 5/5 Skin: no rashes, warm and dry normal turgor Neurologic: PERRL, EOMI, accommodation nl, no face palsy, no dysarthria CN's II- XI intact bilaterally and moves all extremities Discharge Exam Gen: WD/WN, thin, tall, NAD, A&O x3 HEENT: Normocephalic, atraumatic, conjunctivae moist, sclerae anicteric, mucous membranes moist. Lung: Clear to Auscultation bilaterally, no wheezes/rales/rhonchi Heart: Regular rate, regular rhythm, no murmurs, rubs, or gallops Abdomen: Soft, NT, ND +BS x 4 Extremities: No edema Skin: Warm, no rash, negative turgor. Mammograms are helpful Updated Medication List Medication Instructions Recorded Confirmed Type Flutter Valve #1 ea 11/29/21 05/20/24 Rx acalabrutinib 100 mg capsule 100 mg PO Q12H 06/06/22 12/06/24 History ([place]ence) omega-3 fatty acids 1,000 mg 1,000 mg PO DAILY 06/06/22 12/06/24 History capsule Vinegar Tea See Rx Instructions .Route .COMPLEX 01/04/23 12/05/24 History Privigen 40 g IV .EVERY 28 DAYS 06/27/23 12/06/24 History coenzyme Q10 100 mg capsule (Co 100 mg PO DAILY 06/27/23 12/06/24 History Q-10) diphenhydramine 25 1 tab PO HS PRN Sleep 06/27/23 12/05/24 History mg-acetaminophen 500 mg tablet (Tylenol PM Extra Strength) fluticasone propionate 50 1 spray intranasal QPM 06/27/23 12/06/24 History mcg/actuation nasal spray,suspension (Allergy Relief (fluticasone)) multivitamin with minerals 1 tab PO DAILY 06/27/23 12/06/24 History (Multiple Vitamin-Minerals tablet) Probiotic Acidophilus Biobeads 1 cap PO DAILY 11/07/23 12/06/24 History finasteride 5 mg tablet 5 mg PO DAILY 11/07/23 12/06/24 History fluticasone furoate 200 1 inh inhalation QAM 12/05/24 12/06/24 History mcg-vilanterol 25 mcg/dose inhalation powder (Breo Ellipta) levalbuterol HCl 1.25 mg/3 mL 1.25 mg inhalation QPM PRN 12/05/24 12/06/24 History solution for nebulization shortness of breath cefdinir 300 mg capsule 300 mg PO BID 4 days #8 caps 12/07/24 Rx Hospital Stay Data Consultations 12/05/24 18:29 ED Decision to Admit Stat Diagnostic Imagining Performed Chest CTA 12/05/24 16:07 HISTORY: Dyspnea. Left-sided neck edema. TECHNIQUE: Helical CT angiography of the chest was performed following 115 mL of Optiray 320 IV contrast. Images are presented in axial and coronal reformats. Coronal and sagittal MIP reconstructions are also provided. COMPARISON: None. FINDINGS: No evidence of acute pulmonary embolism. No evidence of acute aortic process. Mild atherosclerotic vascular disease of the aorta and arch vessels. No thoracic aortic aneurysm. Cardiomegaly. Coronary artery calcifications are present. No suspicious mediastinal or hilar lymph nodes. Hypodense nodules within the right thyroid lobe measuring up to 1.3 cm in diameter require no follow-up. Thoracic esophagus is unremarkable. The included upper abdomen is unremarkable. The soft tissues of the chest wall are unremarkable. Patchy left greater than right basilar airspace opacity concerning for pneumonia.No pneumothorax or pleural effusion. No acute osseous abnormality. IMPRESSION: 1. No evidence of acute pulmonary embolism or acute aortic process. 2. Patchy airspace opacity involving the left greater than right lung base concerning for pneumonia. Follow-up chest CT is recommended in 1 to 2 months to ensure resolution 3. Mild cardiomegaly. Coronary artery calcifications are present. 4. Additional chronic and/or incidental findings as above. Electronically signed by Aaron Quinonez 12-05-2024 5:[address] 12/05/24 16:07 HISTORY: Left-sided neck edema. TECHNIQUE: Helical CT imaging of the neck was performed following uneventful administration of 115 mL of Optiray 320 IV contrast. Images are presented in axial, sagittal, coronal reformats. COMPARISON: None FINDINGS: The included intracranial contents are unremarkable. Globes and orbits are unremarkable. Postsurgical changes of the maxillary sinus schmid. Paranasal sinus mucosal thickening. Bilateral mastoid effusion.The parotid and submandibular glands are unremarkable. Bilateral thyroid nodules measuring up to 1.3 cm in diameter require no follow-up. The mucosal surfaces of the upper aerodigestive tract are unremarkable. No fluid collection or abscess is identified in the neck. Bilateral cervical lymph nodes are increased in size and number at all cervical levels. A left level 1B lymph node measuring 1.5 x 1.3 cm on series 5 image 62. The included lung apices demonstrate parenchymal scarring, but are otherwise unremarkable. No acute osseous abnormality. Degenerative changes of the spine. IMPRESSION: 1. Bilateral cervical lymph nodes are increased in size and number at all cervical levels. This appearance is nonspecific and could represent reactive lymphadenopathy versus malignant process such as lymphoma or metastatic disease. Clinical correlation is recommended. 2. No fluid collection or abscess is seen in the neck. 3. 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 4. Nonspecific bilateral mastoid effusion. Electronically signed by Aaron Quinonez 12-05-2024 6:01 PM Pending Results Patient Have Any Pending Studies at Discharge: No Discharge Instructions Given to Patient (Per Discharging Provider) MEDICATION CHANGES: Cefdinir 300mg by mouth every 12 hours for additional 4 days to complete antibiotic therapy. Next dose is due the evening of 12/07/24. SUMMARY OF TEST RESULTS: You were admitted to hospital due to increased SOB and increased use of nebulizer. You were diagnosed with rhinovirus and pneumonia. You were started on antibiotic therapy. Your symptoms improved with treatment and on day of discharge you felt much improved. CT scan during your hospital stay showed enlarged lymph nodes in your neck region, Right great than left, which could very well be due to your infection. It is recommended you have a repeat CT scan of your neck and chest in 1-2 months. PENDING TEST RESULTS: None RECOMMENDATIONS FOR FOLLOW-UP: Please follow up with primary care provider as scheduled. Please complete antibiotic in its entirety. Please continue to use your nebulizer as needed. It is recommended your primary care provider repeat the CT scan of your chest and neck in 1-2 months. Please have your primary care provider repeat your kidney functions at your follow up appointment. Please stay well hydrated drinking 70-80 oz of water/noncaffeinated beverages daily. OTHER INSTRUCTIONS: Seek medical attention if you have: * temperature above 101 * chest pain or trouble breathing * abdominal pain, nausea, vomiting * diarrhea, dark stools or bloody stools * any unanswered questions or concerns Call 911 if symptoms are severe. Please take good care of yourself. It has been a pleasure taking care of you. Please take care of yourself. If you have any questions regarding your recent hospitalization please contact [facility] and request Williansandeep Capo @ [phone]. Total Time Total Time Spent Total Time Spent (In Minutes): 38 minutes Supervising Physician Co-Signing Physician Notes Patient seen and examined independently. He reports that he is feeling much better and wants to go home Prescription for antibiotic given Follow-up with PCP as outpatient I have reviewed the advanced practitioner's documentation, and I agree with, and take responsibility for the plan of care I spent a total of 15 minutes coordinating, documenting, and providing care for this patient excluding time spent in the performance of separately billed services. All of the aforementioned completed while collaborating with the assigned advanced practitioner for a full treatment plan
--- NOTE | 2024-12-07 15:03 | Electrocardiogram Report ---
Test Reason : Blood Pressure : */* mmHG Vent. Rate : 61 BPM Atrial Rate : 61 BPM P-R Int : 166 ms QRS Dur : 96 ms QT Int : 396 ms P-R-T Axes : 76 30 62 degrees QTcB Int : 398 ms Normal sinus rhythm Normal ECG When compared with ECG of 24-Oct-2023 11:48, Sinus rhythm has replaced Ectopic atrial rhythm Confirmed by Paul Carranza ([id number]) on 12/07/2024 3:03:17 PM Referred By: Confirmed By: Paul Carranza
== END 2024-12-07 13:16 | disposition home or self-care (01) | DRG 194 ==
LOC: ED 14:46 → 3E 18:56

== ENCOUNTER 2025-04-08 11:19 | Inpatient (IN) ==
--- NOTE | 2025-04-08 11:42 | Emergency Department Note ---
Impression & Plan Bilateral pneumonia, Leukocytosis, Hypoxia, Elevated procalcitonin, Rhinovirus infection, Enterovirus infection ED Provider Note HISTORY OF PRESENT ILLNESS: Patient is an 80-year-old male presenting with shortness of breath. Patient reports he has been having progressively worsening shortness of breath over the last few days. Reports he has had some rhinorrhea and sinus congestion as well as nausea. He states he had low-grade fevers at home up to 100.4. He reports he took Tylenol this morning. He does not wear any supplemental oxygen at baseline. Reports he had a course of antibiotics and steroids a few weeks ago. He was seen for an acute visit at his primary care provider's office for his symptoms, patient was found to have a fever of 100.8 at the clinic. His saturations were 94% on room air. He was referred to the emergency department for further evaluation and management, specifically due to concern for potential pneumonia. Patient has a history of B-cell chronic lymphocytic leukemia and is on acalabrutinib daily and IVIG infusions monthly. ROS: as above PHYSICAL EXAM: Constitutional: Patient appears in no acute distress. HENT: Head: Normocephalic and atraumatic. Eyes: EOMI, PERRL Mouth/Throat: Mucous membranes moist. Neck: Trachea midline. Neck supple. Cardiovascular: RRR, No murmurs, rubs or gallops. Intact distal pulses. Pulmonary/Chest: No respiratory distress. Breath sounds clear and equal bilaterally. No wheezes or rales. Abdominal: Abdomen soft, no tenderness, rebound or guarding. Musculoskeletal: No edema, tenderness or deformity noted. Skin: Warm and dry. No rash, erythema, pallor or cyanosis Psychiatric: Appropriate mood and affect for situation. Neurological: Alert and keenly responsive. CN II-XII grossly intact, moving all extremities equally and fully. MDM: - Vitals signs showed borderline hypoxic on room air - History obtained via patient. History as above. - Chronic conditions affecting care: CLL with hypogammaglobulinemia; IgG deficiency; anemia - Differential diagnoses include, but are not limited to: Congestive heart failure; acute coronary syndrome; COPD/asthma exacerbation; pulmonary edema; pulmonary embolism; pneumonia; pneumothorax; viral syndrome - Order placed for continuous cardiac monitoring. At this time, monitor showed rate of 75 bpm with normal sinus rhythm, per my interpretation. - External medical records reviewed. Family medicine office visit note from [facility] dated today was reviewed. Patient presented for an acute visit for shortness of breath. He was vitally stable at the clinic, but was referred to the emergency department due to his complicated history and due to concern for potential pneumonia. - EKG image interpreted by myself showed normal sinus rhythm. Rate 82 bpm. QT 356. No acute ischemic changes. Noted to have frequent PVCs. - Laboratory workup interpreted by myself showed leukocytosis (WBC 12.68) with neutrophil predominance; normal PT/INR; normal lactate; elevated procalcitonin (1.09); stable electrolytes; normal troponin - UA negative for infection - CXR image reviewed by myself showed a right sided pneumonia, per my interpretation. Radiology actually notes bilateral lower lobe pneumonia. - Viral respiratory panel positive for rhinovirus/enterovirus infection. - Blood cultures obtained. - Patient's saturations were 90 to 91% on room air. He was started on supplemental oxygen. - Given 1g IV rocephin and 500 mg PO azithromycin for community-acquired pneumonia coverage. - Discussion was had with case preparer and liner about patient's case and need for admission - Hospitalist consulted for admission - Patient admitted to [facility] hospitalist service for further evaluation and management. ASSESSMENT AND PLAN: Diagnosis: Bilateral pneumonia; acute hypoxia; leukocytosis; elevated procalcitonin; rhinovirus infection; enterovirus infection Plan: Admit Past Med/Surg History Problem List (Updated 04/08/25 @ 15:02 by Tahmina Mcclelland MD) Enterovirus infection (Acute) Rhinovirus infection (Acute) Elevated procalcitonin (Acute) Hypoxia (Acute) Leukocytosis (Acute) Bilateral pneumonia (Acute) Dysfunction of both eustachian tubes Bilateral chronic serous otitis media Acute hypoxemic respiratory failure (Acute) Vomiting Viral pneumonia Epilepsy Bronchiectasis LULI (mycobacterium avium-intracellulare) (Acute) Cough (Acute) Pneumonia (Acute) Hypogammaglobulinemia Splenomegaly Pneumonia LULI (mycobacterium avium-intracellulare) Leukemoid reaction Leukocytosis (Acute) Anemia (Acute) Dyspnea (Acute) History of TB (tuberculosis) Asthma CLL (chronic lymphocytic leukemia) (Acute) Multifocal pneumonia (Acute) Abnormal chest CT Medical History (Updated 04/08/25 @ 15:02 by Tahmina Mcclelland MD) Chronic cough Sensorineural hearing loss (SNHL) of both ears Chronic maxillary sinusitis History of pneumonia d/c [facility] 12/07/24 Nausea and vomiting after administration of anesthetic agent after inguinal hernia repair, years ago; no issues since then Acute hypoxemic respiratory failure hx 2022, "with severe infection" History of anemia Vasovagal reaction hx, recently when in ENT dr's office ~12/2024, "occurs usually with sudden severe pain" History of epilepsy last seizure ~2018 History of dyspnea "at times" CLL (chronic lymphocytic leukemia) currently on calquence 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, hospitalized for 3 months, abx "for years" Asthma inh and neb BPH (benign prostatic hyperplasia) Surgical History (Updated 03/18/25 @ 14:36 by WATSON Bolanos) S/p bilateral myringotomy with tube placement Hx of colonoscopy Hx of right inguinal hernia repair History of prostate surgery [facility] surgery History of tonsillectomy and adenoidectomy H/O vasectomy [place] teeth removed S/P TURP 2019 History of bronchoscopy (2021) [facility] Social History Smoking Status: Never smoker Second Hand Exposure: No; Do You Dip or Chew Tobacco: No; Hx Alcohol Use: No Hx Substance Use: No Preferred Language: Thai Communication Ability: Effective Sales Service Promoter Required: No Beliefs That Will Affect Care: None Current Living Situation: Spouse Feels Safe at Home: Yes Assistive Devices: Glasses and Hearing Aid - Bilateral Allergies Allergies Allergy/AdvReac Type Severity Reaction Status Date / Time rofecoxib Allergy Intermediate RASH,SWELLING, Verified 03/18/25 14:34 UNSTEADY GAIT/STUMBLING lamotrigine [From Lamictal] AdvReac Mild cannot Verified 03/18/25 14:34 think straight, stumbling and falling. meperidine AdvReac Mild Vomiting Verified 03/18/25 14:34 Home Meds Home Medications Medication Instructions Recorded Confirmed acalabrutinib 100 mg capsule 100 mg PO Q12H 06/06/22 03/18/25 (Calquence) omega-3 fatty acids 1,000 mg 1,000 mg PO DAILY 06/06/22 03/18/25 capsule Privigen 40 g IV .EVERY 28 DAYS 06/27/23 03/18/25 diphenhydramine 25 1 tab PO HS PRN Sleep 06/27/23 03/18/25 mg-acetaminophen 500 mg tablet (Tylenol PM Extra Strength) fluticasone propionate 50 1 spray intranasal QPM 06/27/23 03/18/25 mcg/actuation nasal spray,suspension (Allergy Relief (fluticasone)) multivitamin with minerals 1 tab PO DAILY 06/27/23 03/18/25 (Multiple Vitamin-Minerals tablet) Probiotic Acidophilus Biobeads 1 cap PO DAILY 11/07/23 03/18/25 finasteride 5 mg tablet 5 mg PO QAM 11/07/23 03/18/25 fluticasone furoate 200 1 inh inhalation QAM 12/05/24 03/18/25 mcg-vilanterol 25 mcg/dose inhalation powder (Breo Ellipta) Previous Rx's Medication Instructions Recorded Flutter Valve #1 ea 11/29/21 levalbuterol HCl 1.25 mg/3 mL 1.25 mg (3 mL) inhalation QPM PRN 01/04/25 solution for nebulization shortness of breath #270 mL Results & Data (ED) Vital Signs Vital Signs - 24 hr 04/08/25 11:32 04/08/25 11:32 04/08/25 11:32 Temperature 37.1 C Temperature Source Oral Pulse Rate 78 Pulse Rate [Apical] Respiratory Rate 19 Respiratory Effort / Characteristics Non-Labored Respiratory Depth Normal Blood Pressure 135/66 Blood Pressure [Right Arm] Blood Pressure Mean 89 Blood Pressure Mean [Right Arm] Pulse Oximetry 93 91 Oxygen Delivery Method Room Air Room Air Room Air Sepsis Recent Fever Within 48 Hours No Sepsis New/Unexplained Change in Mental Status No Sepsis Action Taken by Nursing No Action Required 04/08/25 11:32 04/08/25 11:35 04/08/25 11:36 Temperature 37.1 C Temperature Source Oral Pulse Rate 75 Pulse Rate [Apical] 78 Respiratory Rate 19 Respiratory Effort / Characteristics Non-Labored Respiratory Depth Normal Blood Pressure Blood Pressure [Right Arm] 135/66 Blood Pressure Mean Blood Pressure Mean [Right Arm] 89 Pulse Oximetry 91 91 Oxygen Delivery Method Room Air Room Air Sepsis Recent Fever Within 48 Hours Sepsis New/Unexplained Change in Mental Status Sepsis Action Taken by Nursing Laboratory Data 04/08/25 11:37 04/08/25 11:37 Lab Results 04/08/25 04/08/25 04/08/25 Range/Units 11:37 11:52 11:57 WBC 12.68 H (4.8-10.8) K/ul RBC 3.36 L (4.70-6.10) M/uL Hgb 11.0 L (14.0-18.0) g/dl Hct 32.7 L (42.0-52.0) % MCV 97.3 (80.0-100.0) fL MCH 32.7 (25.0-34.0) pg MCHC 33.6 (32.0-36.0) g/dL RDW Std Deviation 50.1 H (36.4-46.3) fL RDW Coeff of [place] 13.9 (11.5-14.5) % Plt Count 164 (130-400) K/uL MPV 11.4 (9.4-12.4) fL Immature Gran % (Auto) 0.8 % Neut % (Auto) 28.6 % Lymph % (Auto) 62.1 % [place] % (Auto) 7.7 % Eos % (Auto) 0.6 % Baso % (Auto) 0.2 % Neut # (Auto) 3.62 (1.40-6.50) K/uL Lymph # (Auto) 7.88 H (1.20-3.40) K/uL [place] # (Auto) 0.98 H (0.11-0.59) K/uL Eos # (Auto) 0.07 (0.00-0.50) K/uL Baso # (Auto) 0.03 (0.00-0.20) K/uL Immature Gran # (Auto) 0.10 (0.01-0.20) K/uL Smudge Cells Present PT 11.1 (9.0-12.0) Seconds INR 1.0 (0.9-1.1) Sodium 138 (136-145) mmol/L Potassium 3.9 (3.5-5.1) mmol/L Chloride 107 (98-107) mmol/L Carbon Dioxide 24 (21-32) mmol/L Anion Gap 7 (3-11) BUN 23 (6-23) mg/dl Creatinine 1.08 (0.6-1.4) mg/dl Est Cr Clr Drug Dosing 53.5 ml/min eGFR 69.37 BUN/Creatinine Ratio 21.3 H (10-20) Glucose 152 H (70-99(Fasting)) mg/dl Lactate (0.4-2.0) mmol/L Calcium 10.1 (8.6-10.3) mg/dl Magnesium 1.9 (1.7-2.4) mg/dl Total Bilirubin 0.6 (0.2-1.0) mg/dl AST 17 (13-39) U/L ALT 15 (7-52) U/L Alkaline Phosphatase 66 (34-104) U/L Troponin I High Sens 11.8 (0-20) pg/ml Total Protein 6.3 (6.0-8.3) gm/dl Albumin 3.1 L (3.4-5.0) gm/dl Globulin 3.2 (2.5-4.0) gm/dl Albumin/Globulin Ratio 1.0 (0.9-2) Procalcitonin (0-0.5) ng/ml Urine Color Yellow Urine Appearance Clear (Clear) Urine pH 6.5 (4.5-7.5) Ur Specific [place] 1.016 (1.000-1.030) Urine Protein Negative (Negative) Urine Glucose (UA) Negative (Negative) Urine Ketones Trace H (Negative) Urine Blood Negative (Negative) Urine Nitrite Negative (Negative) Urine Bilirubin Negative (Negative) Urine Urobilinogen Negative (Negative) Ur Leukocyte Esterase Negative (Negative) Urine Comment Adenovirus (PCR) Not Detected (NotDetected) B. pertussis DNA (PCR) Not Detected (NotDetected) B.parapertussis DNA PCR Not Detected (NotDetected) C. pneumoniae DNA (PCR) Not Detected (NotDetected) Coronavirus OC43 (PCR) Not Detected (NotDetected) Coronavirus HKU1 (PCR) Not Detected (NotDetected) Coronavirus 229E (PCR) Not Detected (NotDetected) SARS-CoV-2 (PCR) Not Detected (NotDetected) Coronavirus NL63 (PCR) Not Detected (NotDetected) Human Metapneumovir PCR Not Detected (NotDetected) Influenza Type A (PCR) Not Detected (NotDetected) Influenza Type B (PCR) Not Detected (NotDetected) M. pneumoniae (PCR) Not Detected (NotDetected) Parainfluenza 1 (PCR) Not Detected (NotDetected) Parainfluenza 2 (PCR) Not Detected (NotDetected) Parainfluenza 3 (PCR) Not Detected (NotDetected) Parainfluenza 4 (PCR) Not Detected (NotDetected) RSV (PCR) Not Detected (NotDetected) Entero/Rhino (PCR) DETECTED A (NotDetected) 04/08/25 04/08/25 Range/Units 12:44 12:50 WBC (4.8-10.8) K/ul RBC (4.70-6.10) M/uL Hgb (14.0-18.0) g/dl Hct (42.0-52.0) % MCV (80.0-100.0) fL MCH (25.0-34.0) pg MCHC (32.0-36.0) g/dL RDW Std Deviation (36.4-46.3) fL RDW Coeff of [place] (11.5-14.5) % Plt Count (130-400) K/uL MPV (9.4-12.4) fL Immature Gran % (Auto) % Neut % (Auto) % Lymph % (Auto) % [place] % (Auto) % Eos % (Auto) % Baso % (Auto) % Neut # (Auto) (1.40-6.50) K/uL Lymph # (Auto) (1.20-3.40) K/uL [place] # (Auto) (0.11-0.59) K/uL Eos # (Auto) (0.00-0.50) K/uL Baso # (Auto) (0.00-0.20) K/uL Immature Gran # (Auto) (0.01-0.20) K/uL Smudge Cells PT (9.0-12.0) Seconds INR (0.9-1.1) Sodium (136-145) mmol/L Potassium (3.5-5.1) mmol/L Chloride (98-107) mmol/L Carbon Dioxide (21-32) mmol/L Anion Gap (3-11) BUN (6-23) mg/dl Creatinine (0.6-1.4) mg/dl Est Cr Clr Drug Dosing ml/min eGFR BUN/Creatinine Ratio (10-20) Glucose (70-99(Fasting)) mg/dl Lactate 0.8 (0.4-2.0) mmol/L Calcium (8.6-10.3) mg/dl Magnesium (1.7-2.4) mg/dl Total Bilirubin (0.2-1.0) mg/dl AST (13-39) U/L ALT (7-52) U/L Alkaline Phosphatase (34-104) U/L Troponin I High Sens (0-20) pg/ml Total Protein (6.0-8.3) gm/dl Albumin (3.4-5.0) gm/dl Globulin (2.5-4.0) gm/dl Albumin/Globulin Ratio (0.9-2) Procalcitonin 1.09 H (0-0.5) ng/ml Urine Color Urine Appearance (Clear) Urine pH (4.5-7.5) Ur Specific [place] (1.000-1.030) Urine Protein (Negative) Urine Glucose (UA) (Negative) Urine Ketones (Negative) Urine Blood (Negative) Urine Nitrite (Negative) Urine Bilirubin (Negative) Urine Urobilinogen (Negative) Ur Leukocyte Esterase (Negative) Urine Comment Adenovirus (PCR) (NotDetected) B. pertussis DNA (PCR) (NotDetected) B.parapertussis DNA PCR (NotDetected) C. pneumoniae DNA (PCR) (NotDetected) Coronavirus OC43 (PCR) (NotDetected) Coronavirus HKU1 (PCR) (NotDetected) Coronavirus 229E (PCR) (NotDetected) SARS-CoV-2 (PCR) (NotDetected) Coronavirus NL63 (PCR) (NotDetected) Human Metapneumovir PCR (NotDetected) Influenza Type A (PCR) (NotDetected) Influenza Type B (PCR) (NotDetected) M. pneumoniae (PCR) (NotDetected) Parainfluenza 1 (PCR) (NotDetected) Parainfluenza 2 (PCR) (NotDetected) Parainfluenza 3 (PCR) (NotDetected) Parainfluenza 4 (PCR) (NotDetected) RSV (PCR) (NotDetected) Entero/Rhino (PCR) (NotDetected) Administered Medications Discontinued Medications Azithromycin (Azithromycin 250 Mg Tab) 500 mg PO NOW ONE Stop: 04/08/25 12:17 Last Admin: 04/08/25 12:38 Dose: 500 mg Documented By: NDW Ceftriaxone Sodium (Rocephin) 2,000 mg in 50 mls @ 100 mls/hr IV NOW STA Stop: 04/08/25 12:45 Last Admin: 04/08/25 12:38 Dose: 100 mls/hr Documented By: NDW Imaging Data Radiologist's Impression: Chest X-Ray 04/08/25 11:32 XR chest 1V portable CLINICAL HISTORY: Dyspnea COMPARISON STUDY: 08/14/2023 FINDINGS: Heart size and pulmonary vasculature are normal. There is interval patchy opacity at the lung bases, right greater than left. No pleural effusion or pneumothorax. IMPRESSION: Bilateral lung base pneumonia. ACT 112: Negative or not required by law. Electronically signed by: Tano Díaz M.D. 04/08/2025 12:11 PM Discharge Plan Visit Data Chief Complaint: Shortness of Breath/Dyspnea ED Provider: Tahmina Mcclelland Discharge Problem: Bilateral pneumonia, Leukocytosis, Hypoxia, Elevated procalcitonin, Rhinovirus infection, Enterovirus infection Condition: Fair Forms Stand Alone Forms: My [facility] Prescriptions Prescriptions: No Action levalbuterol HCl 1.25 mg/3 mL solution for nebulization 1.25 mg INHALATION QPM PRN (Reason: shortness of breath) Qty: 270 2RF Patient Comments: uses almost every night (DME) Flutter Valve Device See Rx Instructions .MEDSUPPLY Qty: 1 0RF Rx Instructions: Use it every 6 hours when awake. Calquence 100 mg capsule 100 mg PO Q12H omega-3 fatty acids 1,000 mg capsule 1,000 mg PO DAILY finasteride 5 mg tablet 5 mg PO QAM fluticasone propionate [Allergy Relief (fluticasone)] 50 mcg/actuation spray,suspension 1 spray intranasal QPM Rx Instructions: administer into each nostril once daily Multiple Vitamin-Minerals Tablet 1 tab PO DAILY diphenhydramine-acetaminophen [Tylenol PM Extra Strength] 25-500 mg Tablet 1 tab PO HS PRN (Reason: Sleep) Privigen 40 g IV .EVERY 28 DAYS Probiotic Acidophilus Biobeads 1 cap PO DAILY fluticasone furoate-vilanterol [Breo Ellipta] 200-25 mcg/dose blister with device 1 inh inhalation QAM Referrals Referrals: Linda Baeza DO [Primary Care Provider] -
[2025-04-08 11:58] LABS: Hematocrit (blood only) 32.7 % (42.0-52.0); Hemoglobin 11.0 g/dl (14.0-18.0); Mean Corpuscular Hemoglobin 32.7 pg (25.0-34.0); Mean Corpuscular Volume 97.3 fL (80.0-100.0); Platelet Count 164 K/uL (130-400); RDW Standard Deviation 50.1 fL (36.4-46.3); Red Blood Count 3.36 M/uL (4.70-6.10); White Blood Count 12.68 K/ul (4.8-10.8)
--- NOTE | 2025-04-08 12:12 | XRay Report ---
XR chest 1V portable CLINICAL HISTORY: Dyspnea COMPARISON STUDY: 08/14/2023 FINDINGS: Heart size and pulmonary vasculature are normal. There is interval patchy opacity at the rosa ng bases, right greater than left. No pleural effusion or pneumothorax. IMPRESSION: Bilateral lung base pneumonia. ACT 112: Negative or not required by law. Electronically signed by: Tano Díaz M.D. 04/08/2025 12:11 PM
[2025-04-08 12:14] LABS: Appearance Urine Clear (Clear); Glucose Urine UA Negative (Negative)
[2025-04-08 12:15] LABS: Alanine Aminotransferase 15.0 U/L (7-52); Albumin Globulin Ratio 1.0 (0.9-2); Alkaline Phosphatase 66.0 U/L (34-104); Anion Gap 7.0 (3-11); Bilirubin,Total 0.6 mg/dl (0.2-1.0); Blood Urea Nitrogen 23.0 mg/dl (6-23); Calcium 10.1 mg/dl (8.6-10.3); Carbon Dioxide 24.0 mmol/L (21-32); Chloride 107.0 mmol/L (98-107); Creatinine Clr Calc Pharmacy 53.5 ml/min; Globulin 3.2 gm/dl (2.5-4.0); Glucose 152.0 mg/dl (70-99(Fasting)); Magnesium 1.9 mg/dl (1.7-2.4); Potassium 3.9 mmol/L (3.5-5.1); Sodium 138.0 mmol/L (136-145); Total Protein 6.3 gm/dl (6.0-8.3)
[2025-04-08 12:28] LABS: INR 1.0 (0.9-1.1); Prothrombin Time 11.1 Seconds (9.0-12.0)
[2025-04-08] MEDS: cefTRIAXone SODIUM 2,000 MG/50 ML BAG IV STA (12:38)
[2025-04-08] MEDS: AZITHROMYCIN 250 MG TAB PO ONE (12:38)
[2025-04-08 13:02] LABS: Chlamydia pneumoniae PCR Not Detected (NotDetected); Coronavirus 229E PCR Not Detected (NotDetected); Coronavirus CoV-2 (COVID19)PCR Not Detected (NotDetected); Coronavirus HKU1 PCR Not Detected (NotDetected); Coronavirus NL63 PCR Not Detected (NotDetected); Coronavirus OC43PCR Not Detected (NotDetected); Human Metapneumovirus PCR Not Detected (NotDetected); Parainfluenza Virus 1 PCR Not Detected (NotDetected); Parainfluenza Virus 2 PCR Not Detected (NotDetected); Parainfluenza Virus 3 PCR Not Detected (NotDetected); Parainfluenza Virus 4 PCR Not Detected (NotDetected); Respiratory Syncytial VirusPCR Not Detected (NotDetected); Rhinovirus/Enterovirus PCR DETECTED (NotDetected)
[2025-04-08 13:06] LABS: Immature Granulocytes # (auto) 0.10 K/uL (0.01-0.20); Immature Granulocytes % (auto) 0.8 %; Smudge Cells Present
--- NOTE | 2025-04-08 14:36 | History & Physical Report ---
Date of Service April 08, 2025 Assessment & Plan (1) Acute hypoxemic respiratory failure: (2) Bilateral pneumonia: Plan: Community-acquired pneumonia Entero/Rhinovirus History of CLL History of IgG deficiency COPD. Asthma Patient is 80-year-old male with PMH asthma/COPD overlap, bronchiectasis and chronic IgG deficiency, history of TB, history of B cell CLL, HLD, GERD, BPH, CKD III, presented to ER with c/o increased cough, SOB x several days, fever yesterday. Recent outpt treatment with doxycycline and prednisone 3-4 weeks ago for respiratory symptoms Today in ER patient Afebrile, P: 78, R: 18, BP 135/66, 93% on room air. During ER course patient O2 90%, was placed on 1 L nasal cannula with sat up to 92 WBC: 12.7, lactate: WNL, procalcitonin: 1.0 Respiratory bio panel: + entero/rhinovirus CXR: Opacity bilateral lung bases, right greater than left Blood cultures pending In ER given Rocephin, azithromycin Will change to cefepime and azithromycin Gentle IVF Obtain sputum culture if able Does not have wheezing at this time. Will hold off on steroids Supplemental oxygen as needed Incentive spirometer, flutter valve Levalbuterol nebs as needed History of CLL Chronic IgG deficiency Continue Calquence Continue infusion as outpatient every 28 days BPH Continue on finasteride DVT Prophylaxis Heparin SQ Admit telemetry Full Code as per discussion with pt Follows with Dr Baeza for routine care Pt was seen and care coordinated with Dr Pérez. See addendum I spent a total of 75 minutes reviewing notes, outpatient records, labs, medication, coordinating, documenting and providing care for this patient excluding time spent in the performance of separately billed services and excluding time spent by another provider/QHP. History of Present Illness Chief Complaint: cough, SOB Primary Care Provider: Linda Baeza DO Patient is 80-year-old male with PMH asthma/COPD overlap, bronchiectasis and chronic IgG deficiency, history of TB, history of B cell CLL, HLD, GERD, BPH, CKD III, presented to ER with c/o cough, SOB. Per inpatient chart review hospitalization 12/05/2024-12/07/2024 for pneumonia, + entero-/rhinovirus treated with Zosyn and azithromycin and discharged on cefdinir. Patient states March 2025 had respiratory symptoms. Per outpatient chart review treated with doxycycline on 03/09/2025 and prednisone 03/17/2025 for respiratory infection. Patient states his symptoms improved but never fully resolved. The past several days with increased nasal congestion, clear rhinorrhea and unable to breathe through his nose. States post nasal drip. States has cough but feels cough is post nasal drip and expels clear color phlegm. Past several days with increased SOB. States chest feels "heavy like can't breathe". Feels having some lightheaded when up walking around this week. Patient states yesterday had fever 100F. Past several days with decreased appetite. Denies HINES, syncope, N/V/D/C, syncope, vision changes, neck pain, palpitations, hemoptysis, choking, abdominal pain, pa resthesias, weakness, extremity edema, rashes, urinary symptoms. Outpatient chart review: 01/07/25 CT chest without contrast with Residual patchy groundglass opacities and linear scarring in both lungs appear similar to prior. Previously described nodules in the posterior RLL and LLL are less pronounced on this study and likely represented postinfectious/inflammatory changes on the prior study. Few scattered punctate nodules, likely granulomas appear similar to prior. Allergies Allergy/AdvReac Type Severity Reaction Status Date / Time rofecoxib Allergy Intermediate RASH,SWELLING, Verified 03/18/25 14:34 UNSTEADY GAIT/STUMBLING lamotrigine [From Lamictal] AdvReac Mild cannot Verified 03/18/25 14:34 think straight, stumbling and falling. meperidine AdvReac Mild Vomiting Verified 03/18/25 14:34 Home Medications Medication Instructions Recorded Confirmed Type Flutter Valve #1 ea 11/29/21 04/08/25 Rx omega-3 fatty acids 1,000 mg 1,000 mg PO QAM 06/06/22 04/08/25 History capsule fluticasone propionate 50 2 spray intranasal QAM 06/27/23 04/08/25 History mcg/actuation nasal spray,suspension (Allergy Relief (fluticasone)) finasteride 5 mg tablet 5 mg PO QAM 11/07/23 04/08/25 History fluticasone furoate 200 1 inh inhalation QAM 12/05/24 04/08/25 History mcg-vilanterol 25 mcg/dose inhalation powder (Breo Ellipta) L.acidoph-L.rhamn-B.bifidum-B.long 1 tab PO [facility] 04/08/25 04/08/25 History 12.9 mg (2 billion cell) tablet, acalabrutinib maleate 100 mg 100 mg PO [facility] 04/08/25 04/08/25 History tablet (Calquence (acalabrutinib maleate)) dextromethorphan-guaifenesin ER 60 1 tab PO [facility] 04/08/25 04/08/25 History mg-1,200 mg tab,extend release,12hr (Mucinex DM) guar gum 1 packet PO [facility] 04/08/25 04/08/25 History immune glob,gamm(IgG) 10 %-pro-IgA 40 g IV MONTHLY 04/08/25 04/08/25 History 0 to 50 mcg/mL intravenous solution (Privigen) levalbuterol HCl 1.25 mg/3 mL 1.25 mg inhalation Q6H PRN 04/08/25 04/08/25 History solution for nebulization shortness of breath loratadine 10 mg capsule 10 mg PO M 04/08/25 04/08/25 History melatonin 10 mg tablet 10 mg PO UD 04/08/25 04/08/25 History pealyepyifxt-skg-fhrmn acid-vit 1 tab PO [facility] 04/08/25 04/08/25 History K-lycop 400 mcg-20 mcg-370 mcg tablet (Men's 50 Plus Multivitamin) sodium chloride 0.65 % nasal spray 1 spray intranasal UD PRN 04/08/25 04/08/25 History aerosol (Saline Nasal) Congestion vit A 7,160 unit-C 113 mg-E 100 1 tab PO [facility] 04/08/25 04/08/25 History rbea-hnxw-aeknqo tablet,delayed rel. Past Med/Surg History Problem List Enterovirus infection (Acute) Rhinovirus infection (Acute) Elevated procalcitonin (Acute) Hypoxia (Acute) Leukocytosis (Acute) Bilateral pneumonia (Acute) Dysfunction of both eustachian tubes Bilateral chronic serous otitis media Acute hypoxemic respiratory failure (Acute) Vomiting Viral pneumonia Epilepsy Bronchiectasis LULI (mycobacterium avium-intracellulare) (Acute) Cough (Acute) Pneumonia (Acute) Hypogammaglobulinemia Splenomegaly Pneumonia LULI (mycobacterium avium-intracellulare) Leukemoid reaction Leukocytosis (Acute) Anemia (Acute) Dyspnea (Acute) History of TB (tuberculosis) Asthma CLL (chronic lymphocytic leukemia) (Acute) Multifocal pneumonia (Acute) Abnormal chest CT Medical History Chronic cough Sensorineural hearing loss (SNHL) of both ears Chronic maxillary sinusitis History of pneumonia d/c [facility] 12/07/24 Nausea and vomiting after administration of anesthetic agent after inguinal hernia repair, years ago; no issues since then Acute hypoxemic respiratory failure hx 2022, "with severe infection" History of anemia Vasovagal reaction hx, recently when in ENT dr's office ~12/2024, "occurs usually with sudden se petra pain" History of epilepsy last seizure ~2018 History of dyspnea "at times" CLL (chronic lymphocytic leukemia) currently on calquence 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, hospitalized for 3 months, abx "for years" Asthma inh and neb BPH (benign prostatic hyperplasia) Surgical History S/p bilateral myringotomy with tube placement Hx of colonoscopy Hx of right inguinal hernia repair History of prostate surgery [facility] surgery History of tonsillectomy and adenoidectomy H/O vasectomy [place] teeth removed S/P TURP 2019 History of bronchoscopy (2021) [facility] Social History Smoking Status: Never smoker Second Hand Exposure: No; Do You Dip or Chew Tobacco: No; Hx Alcohol Use: No Hx Substance Use: No Preferred Language: Ukrainian Communication Ability: Effective Apron Operator Required: No Beliefs That Will Affect Care: None Current Living Situation: Spouse Current Living Situation Comment: 2 story home Feels Safe at Home: Yes Safety Concerns: Feels Safe At This Time Assistive Devices: Glasses Review of Systems Review of Systems: All systems reviewed & are unremarkable except as noted in HPI & below Physical Exam Physical Exam: General: no acute distress sitting in bed on 1L O2 via NC, ill appearing, WDWN Head: normocephalic, atraumatic Eyes: conjunctiva non-injected, anicteric ENT: normal inspection external ears, nose, mucous membranes moist Neck: supple, trachea midline Lungs: no respiratory distress sitting in bed on 1L O2 via NC with sat 92%, +noted dyspnea with speaking in sentences, +rales greater at right base than left, no rales noted CV: RRR, no murmur, no pretibial edema Abd: normal BS, soft, non-tender Ext: no cyanosis, no calf tenderness Neuro: A&O x 3, no focal deficits noted, normal affect Skin: warm, dry Results & Data Results & Data Vital Signs (Past 12 Hours) Vital Signs Temp Pulse Pulse Resp BP BP Pulse Ox 04/08/25 11:36 91 04/08/25 11:35 75 04/08/25 11:32 37.1 C 78 19 135/66 91 04/08/25 11:32 91 04/08/25 11:32 37.1 C 78 19 135/66 93 04/08/25 11:32 O2 Del Method 04/08/25 11:36 Room Air 04/08/25 11:35 04/08/25 11:32 Room Air 04/08/25 11:32 Room Air 04/08/25 11:32 Room Air 04/08/25 11:32 Room Air Laboratory Results Short CBC 04/08/25 Range/Units 11:37 WBC 12.68 H (4.8-10.8) K/ul Hgb 11.0 L (14.0-18.0) g/dl Hct 32.7 L (42.0-52.0) % Plt Count 164 (130-400) K/uL BMP 04/08/25 11:37 Sodium 138 Potassium 3.9 Chloride 107 Carbon Dioxide 24 BUN 23 Creatinine 1.08 Glucose 152 H Calcium 10.1 Liver Function 04/08/25 Range/Units 11:37 Total Bilirubin 0.6 (0.2-1.0) mg/dl AST 17 (13-39) U/L ALT 15 (7-52) U/L Alkaline Phosphatase 66 (34-104) U/L Albumin 3.1 L (3.4-5.0) gm/dl Urine 04/08/25 Range/Units 11:52 Urine Color Yellow Urine Appearance Clear (Clear) Urine pH 6.5 (4.5-7.5) Ur Specific [place] 1.016 (1.000-1.030) Urine Protein Negative (Negative) Urine Glucose (UA) Negative (Negative) Diagnostic Findings Chest X-Ray 04/08/25 11:32 XR chest 1V portable CLINICAL HISTORY: Dyspnea COMPARISON STUDY: 08/14/2023 FINDINGS: Heart size and pulmonary vasculature are normal. There is interval patchy opacity at the lung bases, right greater than left. No pleural effusion or pneumothorax. IMPRESSION: Bilateral lung base pneumonia. ACT 112: Negative or not required by law. Electronically signed by: Tano Díaz M.D. 04/08/2025 12:11 PM ECG Additional Comments: Sinus rhythm, rate 82, PVCs per my interpretation Supervising Physician Co-Signing Physician Notes The patient was seen and examined in emergency room He has CLL and on immunosuppressive medications with history of pneumonia in December while he was in the hospital and also bronchitis in March treated with Doxy and a course of prednisone Coming in with chest heaviness fever and shortness of breath for the last few days Denies any chest pain and/or palpitation and no nausea no vomiting On examination Lying in bed without any acute distress Hemodynamically stable and is afebrile and requiring 2 L to maintain saturation Chestdecreased breath sounds bilaterally bases with more crackles on the right than the left HeartS1-S2, regular Abdomenbenign Extremitiesno edema CNSalert, awake and oriented x 3 no focal sensory or motor deficit appreciated He is admission labs and imaging studies reviewed Noted to have minimally elevated white count of more than 12,000 an chest x-ray evidence of bibasilar pneumonia more on the right than the left Assessment and plan By basilar pneumonia right greater than the left with immunosuppressed status CLL on immunotherapy and chemotherapy Will be getting intravenous cefepime and azithromycin His other significant medical condition remains stable as mentioned above I agree with assessment and plan as outlined above by Mera Edmonds PA-C and take the full responsibility of care in the hospital DR Se Pérez
[2025-04-08] MEDS ORDERED: PROMETHAZINE 6.25 MG/50.25 ML BAG IV PRN (16:17)
[2025-04-08] MEDS ORDERED: SODIUM CHLORIDE 0.65% NA SOLN 45 ML (OCEAN) NAE PRN (16:17)
[2025-04-08] MEDS ORDERED: POLYETHYLENE (MIRALAX) 17 GM PACK PO PRN (16:17)
[2025-04-08] MEDS: SODIUM CHLORIDE 0.9% 1,000 ML IV SCH (16:29)
[2025-04-08] MEDS: CEFEPIME 2000MG 2,000 MG/20 ML SYR IV SCH (17:56)
[2025-04-08] MEDS: ACALABRUTINIB MALEATE 100 MG PO SCH (20:06)
[2025-04-08] MEDS: HEPARIN SOD 5,000 UNIT/0.5 ML VIAL SQ SCH (20:07)
[2025-04-08] MEDS: guaiFENesin 600 MG TABCR PO SCH (20:07)
[2025-04-08] MEDS: MELATONIN 3 MG TAB PO PRN (21:46)
[2025-04-09 06:31] LABS: Hematocrit (blood only) 31.5 % (42.0-52.0); Hemoglobin 10.6 g/dl (14.0-18.0); Mean Corpuscular Hemoglobin 32.9 pg (25.0-34.0); Mean Corpuscular Volume 97.8 fL (80.0-100.0); Platelet Count 161 K/uL (130-400); RDW Standard Deviation 49.5 fL (36.4-46.3); Red Blood Count 3.22 M/uL (4.70-6.10); White Blood Count 13.39 K/ul (4.8-10.8)
[2025-04-09 07:07] LABS: Anion Gap 7.0 (3-11); Blood Urea Nitrogen 25.0 mg/dl (6-23); Calcium 9.5 mg/dl (8.6-10.3); Carbon Dioxide 22.0 mmol/L (21-32); Chloride 109.0 mmol/L (98-107); Creatinine Clr Calc Pharmacy 46.2 ml/min; Glucose 106.0 mg/dl (70-99(Fasting)); Potassium 3.8 mmol/L (3.5-5.1); Sodium 138.0 mmol/L (136-145)
[2025-04-09 07:15] LABS: Immature Granulocytes # (auto) 0.08 K/uL (0.01-0.20); Immature Granulocytes % (auto) 0.6 %; Smudge Cells Present
[2025-04-09] MEDS: PSYLLIUM HUSK 4GM PACKET PO SCH (08:25)
[2025-04-09] MEDS: FLUTICASONE/VILANTEROL 200/25MCG 14 PUFFS/INHALER INH SCH (08:26)
[2025-04-09] MEDS: FINASTERIDE 5 MG TAB PO SCH (08:26)
[2025-04-09] MEDS: CEROVITE ADV FORMULA TAB PO SCH (08:26)
[2025-04-09] MEDS: FLUTICASONE PROPIONATE NA SPR 16 GM BTL NAE SCH (08:26)
[2025-04-09] MEDS: LORATADINE 10 MG TAB PO SCH (08:27)
--- NOTE | 2025-04-09 08:33 | Hospitalist Progress Note ---
Date of Service April 09, 2025 Assessment & Plan (1) Acute hypoxemic respiratory failure: (2) Bilateral pneumonia: Plan: Acute hypoxic resp. failure Community-acquired pneumonia Entero/Rhinovirus History of CLL History of IgG deficiency COPD. Asthma Patient is 80-year-old male with PMH asthma/COPD overlap, bronchiectasis and chronic IgG deficiency, history of TB, history of B cell CLL, HLD, GERD, BPH, CKD III, presented to ER with c/o increased cough, SOB x several days, fever yesterday. Recent outpt treatment with doxycycline and prednisone 3-4 weeks ago for respiratory symptoms In ER patient Afebrile, P: 78, R: 18, BP 135/66, 93% on room air. During ER course patient O2 90%, was placed on 1 L nasal cannula with sat up to 92 WBC: 12.7, lactate: WNL, procalcitonin: 1.0 Respiratory bio panel: + entero/rhinovirus Procalcitonin 1 CXR: Opacity bilateral lung bases, right greater than left Blood cultures pending In ER given Rocephin, azithromycin changed to cefepime and azithromycin on admission, will change to zosyn + azithro, and will further discuss w/ pulm. Gentle IVF sputum culture ordered Does not have wheezing at this time. steroids were not started Supplemental oxygen as needed Incentive spirometer, flutter valve, guaifenesin Levalbuterol nebs as needed Pt follows w/ pulm. Dr. Martins - will consult with him further History of CLL Chronic IgG deficiency Continue Calquence Continue infusion as outpatient every 28 days BPH Continue on finasteride DVT Prophylaxis Heparin SQ Full Code as per admitting provider's discussion with pt Follows with Dr Baeza for routine care Admission and Anticipated Discharge Date Admission Date: April 08, 2025 Subjective Pt seen in follow up of pna, hypoxia Pt with hx of CLL - follows w/ Dr. 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 pain, had some nausea Follows w/ pulm. - Dr. Martins - will discuss with them as well will broaden abx to zosyn for now, pt already on azithro. will try to obtain sputum cultx Review of Systems Review of Systems: All systems reviewed & are unremarkable except as noted in Subjective Physical Exam Physical Exam: General:WD/WN M in NAD but ill appearing, on suppl. O2 via NC Head: normocephalic, atraumatic Eyes: conjunctiva non-injected, anicteric ENT: normal inspection external ears, nose, mucous membranes moist Neck: supple, trachea midline Lungs: no respiratory distress, decreased breath sounds, no wheezing, +rales greater at right base than left CV: RRR, no murmur, no pretibial edema Abd: normal BS, soft, non-tender Ext: no LE edema, moves extremities Neuro: A&O x 3, speech fluent, answers appropriately, moves extremities Skin: warm, dry Results & Data Results & Data Vital Signs (Past 12 Hours) Vital Signs Temp Pulse Pulse Resp BP Pulse Ox O2 Del Method 04/09/25 08:05 36.8 C 76 20 128/66 91 Nasal Cannula 04/09/25 07:00 76 04/09/25 02:22 37 C 73 18 129/57 L 91 Nasal Cannula 04/09/25 02:06 Nasal Cannula 04/09/25 02:06 76 04/08/25 23:25 37.3 C 74 22 116/63 91 Nasal Cannula O2 Flow Rate 04/09/25 08:05 3 04/09/25 07:00 04/09/25 02:22 2 04/09/25 02:06 2.5 04/09/25 02:06 04/08/25 23:25 2 Laboratory Results 04/09/25 04/08/25 04/08/25 Range/Units 06:07 12:50 12:44 WBC 13.39 H (4.8-10.8) K/ul RBC 3.22 L (4.70-6.10) M/uL Hgb 10.6 L (14.0-18.0) g/dl Hct 31.5 L (42.0-52.0) % MCV 97.8 (80.0-100.0) fL MCH 32.9 (25.0-34.0) pg MCHC 33.7 (32.0-36.0) g/dL RDW Std Deviation 49.5 H (36.4-46.3) fL RDW Coeff of [place] 13.9 (11.5-14.5) % Plt Count 161 (130-400) K/uL MPV 11.1 (9.4-12.4) fL Immature Gran % (Auto) 0.6 % Neut % (Auto) 23.8 % Lymph % (Auto) 67.3 % [place] % (Auto) 7.5 % Eos % (Auto) 0.7 % Baso % (Auto) 0.1 % Neut # (Auto) 3.18 (1.40-6.50) K/uL Lymph # (Auto) 9.01 H (1.20-3.40) K/uL [place] # (Auto) 1.01 H (0.11-0.59) K/uL Eos # (Auto) 0.09 (0.00-0.50) K/uL Baso # (Auto) 0.02 (0.00-0.20) K/uL Immature Gran # (Auto) 0.08 (0.01-0.20) K/uL Smudge Cells Present PT (9.0-12.0) Seconds INR (0.9-1.1) Sodium 138 (136-145) mmol/L Potassium 3.8 (3.5-5.1) mmol/L Chloride 109 H (98-107) mmol/L Carbon Dioxide 22 (21-32) mmol/L Anion Gap 7 (3-11) BUN 25 H (6-23) mg/dl Creatinine 1.19 (0.6-1.4) mg/dl Est Cr Clr Drug Dosing 46.2 ml/min eGFR 61.75 BUN/Creatinine Ratio 21.0 H (10-20) Glucose 106 H (70-99(Fasting)) mg/dl Lactate 0.8 (0.4-2.0) mmol/L Calcium 9.5 (8.6-10.3) mg/dl Magnesium (1.7-2.4) mg/dl Total Bilirubin (0.2-1.0) mg/dl AST (13-39) U/L ALT (7-52) U/L Alkaline Phosphatase (34-104) U/L Troponin I High Sens (0-20) pg/ml Total Protein (6.0-8.3) gm/dl Albumin (3.4-5.0) gm/dl Globulin (2.5-4.0) gm/dl Albumin/Globulin Ratio (0.9-2) Procalcitonin 1.09 H (0-0.5) ng/ml Urine Color Urine Appearance (Clear) Urine pH (4.5-7.5) Ur Specific [place] (1.000-1.030) Urine Protein (Negative) Urine Glucose (UA) (Negative) Urine Ketones (Negative) Urine Blood (Negative) Urine Nitrite (Negative) Urine Bilirubin (Negative) Urine Urobilinogen (Negative) Ur Leukocyte Esterase (Negative) Urine Comment Adenovirus (PCR) (NotDetected) B. pertussis DNA (PCR) (NotDetected) B.parapertussis DNA PCR (NotDetected) C. pneumoniae DNA (PCR) (NotDetected) Coronavirus OC43 (PCR) (NotDetected) Coronavirus HKU1 (PCR) (NotDetected) Coronavirus 229E (PCR) (NotDetected) SARS-CoV-2 (PCR) (NotDetected) Coronavirus NL63 (PCR) (NotDetected) Human Metapneumovir PCR (NotDetected) Influenza Type A (PCR) (NotDetected) Influenza Type B (PCR) (NotDetected) M. pneumoniae (PCR) (NotDetected) Parainfluenza 1 (PCR) (NotDetected) Parainfluenza 2 (PCR) (NotDetected) Parainfluenza 3 (PCR) (NotDetected) Parainfluenza 4 (PCR) (NotDetected) RSV (PCR) (NotDetected) Entero/Rhino (PCR) (NotDetected) 04/08/25 04/08/25 04/08/25 Range/Units 11:57 11:52 11:37 WBC 12.68 H (4.8-10.8) K/ul RBC 3.36 L (4.70-6.10) M/uL Hgb 11.0 L (14.0-18.0) g/dl Hct 32.7 L (42.0-52.0) % MCV 97.3 (80.0-100.0) fL MCH 32.7 (25.0-34.0) pg MCHC 33.6 (32.0-36.0) g/dL RDW Std Deviation 50.1 H (36.4-46.3) fL RDW Coeff of [place] 13.9 (11.5-14.5) % Plt Count 164 (130-400) K/uL MPV 11.4 (9.4-12.4) fL Immature Gran % (Auto) 0.8 % Neut % (Auto) 28.6 % Lymph % (Auto) 62.1 % [place] % (Auto) 7.7 % Eos % (Auto) 0.6 % Baso % (Auto) 0.2 % Neut # (Auto) 3.62 (1.40-6.50) K/uL Lymph # (Auto) 7.88 H (1.20-3.40) K/uL [place] # (Auto) 0.98 H (0.11-0.59) K/uL Eos # (Auto) 0.07 (0.00-0.50) K/uL Baso # (Auto) 0.03 (0.00-0.20) K/uL Immature Gran # (Auto) 0.10 (0.01-0.20) K/uL Smudge Cells Present PT 11.1 (9.0-12.0) Seconds INR 1.0 (0.9-1.1) Sodium 138 (136-145) mmol/L Potassium 3.9 (3.5-5.1) mmol/L Chloride 107 (98-107) mmol/L Carbon Dioxide 24 (21-32) mmol/L Anion Gap 7 (3-11) BUN 23 (6-23) mg/dl Creatinine 1.08 (0.6-1.4) mg/dl Est Cr Clr Drug Dosing 53.5 ml/min eGFR 69.37 BUN/Creatinine Ratio 21.3 H (10-20) Glucose 152 H (70-99(Fasting)) mg/dl Lactate (0.4-2.0) mmol/L Calcium 10.1 (8.6-10.3) mg/dl Magnesium 1.9 (1.7-2.4) mg/dl Total Bilirubin 0.6 (0.2-1.0) mg/dl AST 17 (13-39) U/L ALT 15 (7-52) U/L Alkaline Phosphatase 66 (34-104) U/L Troponin I High Sens 11.8 (0-20) pg/ml Total Protein 6.3 (6.0-8.3) gm/dl Albumin 3.1 L (3.4-5.0) gm/dl Globulin 3.2 (2.5-4.0) gm/dl Albumin/Globulin Ratio 1.0 (0.9-2) Procalcitonin (0-0.5) ng/ml Urine Color Yellow Urine Appearance Clear (Clear) Urine pH 6.5 (4.5-7.5) Ur Specific [place] 1.016 (1.000-1.030) Urine Protein Negative (Negative) Urine Glucose (UA) Negative (Negative) Urine Ketones Trace H (Negative) Urine Blood Negative (Negative) Urine Nitrite Negative (Negative) Urine Bilirubin Negative (Negative) Urine Urobilinogen Negative (Negative) Ur Leukocyte Esterase Negative (Negative) Urine Comment Adenovirus (PCR) Not Detected (NotDetected) B. pertussis DNA (PCR) Not Detected (NotDetected) B.parapertussis DNA PCR Not Detected (NotDetected) C. pneumoniae DNA (PCR) Not Detected (NotDetected) Coronavirus OC43 (PCR) Not Detected (NotDetected) Coronavirus HKU1 (PCR) Not Detected (NotDetected) Coronavirus 229E (PCR) Not Detected (NotDetected) SARS-CoV-2 (PCR) Not Detected (NotDetected) Coronavirus NL63 (PCR) Not Detected (NotDetected) Human Metapneumovir PCR Not Detected (NotDetected) Influenza Type A (PCR) Not Detected (NotDetected) Influenza Type B (PCR) Not Detected (NotDetected) M. pneumoniae (PCR) Not Detected (NotDetected) Parainfluenza 1 (PCR) Not Detected (NotDetected) Parainfluenza 2 (PCR) Not Detected (NotDetected) Parainfluenza 3 (PCR) Not Detected (NotDetected) Parainfluenza 4 (PCR) Not Detected (NotDetected) RSV (PCR) Not Detected (NotDetected) Entero/Rhino (PCR) DETECTED A (NotDetected) Medications Administered Current Inpatient Medications Acalabrutinib (Acalabrutinib Maleate 100 Mg Tab) 100 mg PO BID@0800,2000 [facility] Stop: 05/08/25 19:59 Last Admin: 04/09/25 08:25 Dose: 100 mg Acetaminophen (Acetaminophen 325 Mg Tab) 650 mg PO Q4H PRN PRN Reason: Pain or Fever Stop: 05/08/25 16:16 Finasteride (Finasteride 5 Mg Tab) 5 mg PO QAM [facility] Stop: 05/09/25 08:59 Last Admin: 04/09/25 08:26 Dose: 5 mg Fluticasone Propionate (Fluticasone Propionate Na Spr 16 Gm Btl) 2 sprays SOPHIA QAM [facility] Stop: 05/09/25 08:59 Last Admin: 04/09/25 08:26 Dose: 2 sprays Fluticasone/Vilanterol (Fluticasone/Vilanterol 200/25mcg 14 Puffs/Inhaler) 1 puffs INH QAM [facility] Stop: 05/09/25 08:59 Last Admin: 04/09/25 08:26 Dose: 1 puffs Guaifenesin (Guaifenesin 600 Mg Tabcr) 1,200 mg PO Q12 [facility] Stop: 05/08/25 20:59 Last Admin: 04/09/25 08:27 Dose: 1,200 mg Heparin Sodium (Porcine) (Heparin Sod 5,000 Unit/0.5 Ml Vial) 5,000 units SQ Q8 [facility] Stop: 05/08/25 21:59 Last Admin: 04/09/25 05:39 Dose: Not Given Promethazine HCl (Phenergan) 6.25 mg in 50.25 mls @ 201 mls/hr IV Q6H PRN PRN Reason: Nausea And Vomiting Stop: 05/08/25 16:16 Azithromycin (Zithromax) 500 mg in 255 mls @ 127.5 mls/hr IV Q24H [facility] Stop: 04/14/25 12:29 Piperacillin Sod/Tazobactam Sod (Zosyn) 4.5 gm in 100 mls @ 25 mls/hr IV Q8H [facility]; Protocol Stop: 04/14/25 08:29 Levalbuterol HCl (Levalbuterol 1.25 Mg/3 Ml Neb) 1.25 mg NEB Q6H PRN PRN Reason: Shortness Of Breath Or Wheezing Stop: 05/08/25 16:16 Loratadine (Loratadine 10 Mg Tab) 10 mg PO QAM [facility] Stop: 05/09/25 08:59 Last Admin: 04/09/25 08:27 Dose: 10 mg Melatonin (Melatonin 3 Mg Tab) 3 mg PO HS PRN PRN Reason: Sleep Stop: 05/08/25 19:52 Last Admin: 04/08/25 21:46 Dose: 3 mg Multivitamins/Minerals (Cerovite Adv Formula Tab) 1 tab PO QAM [facility] Stop: 05/09/25 08:59 Last Admin: 04/09/25 08:26 Dose: 1 tab Polyethylene Glycol (Polyethylene (Miralax) 17 Gm Pack) 17 gm PO DAILY PRN PRN Reason: Constipation Stop: 05/08/25 16:16 Psyllium Hydrophilic Mucilloid (Psyllium Husk 4gm Packet) 4 gm PO QAM [facility] Stop: 05/09/25 08:59 Last Admin: 04/09/25 08:25 Dose: 4 gm Sodium Chloride (Sodium Chloride 0.65% Na Soln 45 Ml (Becker)) 1 sprays SOPHIA TID PRN PRN Reason: Congestion Stop: 05/08/25 16:16
[2025-04-09] MEDS: 4.5GM X1 IV STA (08:51)
--- NOTE | 2025-04-09 10:26 | Pulmonary Consultation ---
Date of Consultation April 09, 2025 Assessment & Plan (1) Multifocal pneumonia: (2) CLL (chronic lymphocytic leukemia): (3) Acute hypoxemic respiratory failure: (4) Enterovirus infection: (5) Rhinovirus infection: (6) Hypogammaglobulinemia: (7) Abnormal chest CT: (8) Asthma: Plan PFT 10/26/2023 personally reviewed: No obstructive lung dysfunction, insignificant bronchodilator response, normal TLC, mild decrease in DLCO (Increase in FVC by 200 mL, increase in FEV1 by 320 mL, increase in DLCO 43--> 61% compared to 11/28) FVC 3.99 L 97%, FEV1 2.91 L 98%, FEV1/FVC 73%, ERV 130%, RV 94%, TLC 86%, RV/TLC-5%, DLCO 61%, DLCO/VA 81% -- Acute hypoxic respiratory failure Secondary to multifocal pneumonia Respiratory BioFire negative for entero-/rhinovirus on 04/08/2025, he was positive for the same even on 12/05/2024 Procalcitonin 1.09 --Asthma-COPD overlap syndrome Patient was diagnosed in his late 40s He did have symptoms in the child but he was never diagnosed officially with it Does have seasonal allergies Non smoker Not in exacerbation On Breo 200 at home Patient was able to successfully take him to the off of Spiriva. -- Bronchiectasis and chronic IgG deficiency Sputum culture in outside facility grew Achromobacter denitrificans. Multi drug resistance pattern-- Sensitive to: Zosyn, Amikacin, Gentamicin, imipenem, tobramycin , Completed the course of IV Zosyn 11/27/2021 LULI grew on sputum 11/16/21 only one sample, Not on treatment Patient does have mediastinal lymphadenopathy from before most like from underlying CML Autoimmune workup 08/11/2023 negative for everything, complements within normal limit Hospitalizations from August 2023 showed diffuse groundglass opacities bilaterally, respiratory bio fire was negative for everything at that time. He was given steroids as well as antibiotics and he did find significant benefit. HRCT December 2023 showed No significant reticular markings, groundglass opacities resolved Pulmonary toxicity/pneumonitis from TKI could be in the differential. I discussed this with Dr. Carlos Pierre, plan was if in future he gets similar problems then need to stop the medication For bronchiectasis continue with Mucinex and Flutter valve whenever he has chest congestion HRCT 12/26/2023 personally reviewed: Linear scarring of the left upper lobe No increased reticular markings or honeycombing Mediastinal lymphadenopathy persists -- Chronic cough Multifactorial Chronic rhinitis with postnasal drip History of bronchiectasis also playing its part Continue bquj-ctt-sacsgug on as-needed basis along with fluticasone nasal spray Gargling with lukewarm water after adding a pinch of salt and will also be helpful --History of 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 Pierre [facility] Plan: Continue with antibiotics Currently on azithromycin and Zosyn, QTc 415 Follow-up nasal MRSA Nebulized bronchodilators while in the hospital Hypertonic saline with flutter valve Follow sputum culture and sputum AFB Given the chronic IgG deficiency, I think it is reasonable to get in touch with Dr. Carlos Pierre and see if he is able to decrease the frequency of IgG or change the brand. Continue with incentive spirometry I spent more than 75 minutes looking in the chart, images, discussing the plan of care with the patient, RN as well as primary team Please note the above document was generated using voice recognition software. It may contain grammatical, syntax or spelling errors.Any formal questions or concerns about the content, text or information contained within the body of this dictation should be directly addressed to the provider for clarification. History of Present Illness Attending Physician: Ciro Pace MD History of Present Illness 80-year-old male admitted to the hospital for shortness of breath Past medical history: BPH, GERD, CLL, history of TB in 1968 s/p treatment, diagnosed asthma in the 40s currently on Breo, MDR Achromobactor s/p treatment Patient was last seen by me in the clinic on 12/18/2024 Patient's was in the room at the time of examination. 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 98-100 Fahrenheit is higher for him he was given antibiotic which is doxycycline as an outpatient followed by prednisone but he did not find benefit and he ended up in the hospital He was saturating 89-90% on 5 L oxygen. Not in significant respiratory distress. Denies any chest pain He is compliant with his inhaler on a daily basis Coughing up clear phlegm. Denies any hemoptysis. Positive chills, no unusual headache, no blurry vision No night sweats, no unintentional weight loss Social history: Non-smoker, no alcohol use, no illicit drug use. 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 No birds or poultry nearby Allergies: Seasonal. Does not take any medications for it Asthma: No family history of asthma. Questionable childhood history of asthma and was never officially diagnosed Lung cancer: No history of lung cancer in the family Allergies Allergy/AdvReac Type Severity Reaction Status Date / Time rofecoxib Allergy Intermediate RASH,SWELLING, Verified 03/18/25 14:34 UNSTEADY GAIT/STUMBLING lamotrigine [From Lamictal] AdvReac Mild cannot Verified 03/18/25 14:34 think straight, stumbling and falling. meperidine AdvReac Mild Vomiting Verified 03/18/25 14:34 Home Medications Medication Instructions Recorded Confirmed Type Flutter Valve #1 ea 11/29/21 04/08/25 Rx omega-3 fatty acids 1,000 mg 1,000 mg PO [facility] 06/06/22 04/08/25 History capsule fluticasone propionate 50 2 spray intranasal QA 06/27/23 04/08/25 History mcg/actuation nasal spray,suspension (Allergy Relief (fluticasone)) finasteride 5 mg tablet 5 mg PO [facility] 11/07/23 04/08/25 History fluticasone furoate 200 1 inh inhalation QA 12/05/24 04/08/25 History mcg-vilanterol 25 mcg/dose inhalation powder (Breo Ellipta) L.acidoph-L.rhamn-B.bifidum-B.long 1 tab PO [facility] 04/08/25 04/08/25 History 12.9 mg (2 billion cell) tablet, acalabrutinib maleate 100 mg 100 mg PO [facility] 04/08/25 04/08/25 History tablet (Calquence (acalabrutinib maleate)) dextromethorphan-guaifenesin ER 60 1 tab PO [facility] 04/08/25 04/08/25 History mg-1,200 mg tab,extend release,12hr (Mucinex DM) guar gum 1 packet PO QA 04/08/25 04/08/25 History immune glob,gamm(IgG) 10 %-pro-IgA 40 g IV MONTHLY 04/08/25 04/08/25 History 0 to 50 mcg/mL intravenous solution (Privigen) levalbuterol HCl 1.25 mg/3 mL 1.25 mg inhalation Q6H PRN 04/08/25 04/08/25 History solution for nebulization shortness of breath loratadine 10 mg capsule 10 mg PO QAM 04/08/25 04/08/25 History melatonin 10 mg tablet 10 mg PO UD 04/08/25 04/08/25 History oroavvbzpjmc-zcy-mqtpn acid-vit 1 tab PO [facility] 04/08/25 04/08/25 History K-lycop 400 mcg-20 mcg-370 mcg tablet (Men's 50 Plus Multivitamin) sodium chloride 0.65 % nasal spray 1 spray intranasal UD PRN 04/08/25 04/08/25 History aerosol (Saline Nasal) Congestion vit A 7,160 unit-C 113 mg-E 100 1 tab PO [facility] 04/08/25 04/08/25 History yrxc-gwps-iyjeqi tablet,delayed rel. Patient History Medical History Chronic cough Sensorineural hearing loss (SNHL) of both ears Chronic maxillary sinusitis History of pneumonia d/c [facility] 12/07/24 Nausea and vomiting after administration of anesthetic agent after inguinal hernia repair, years ago; no issues since then Acute hypoxemic respiratory failure hx 2022, "with severe infection" History of anemia Vasovagal reaction hx, recently when in ENT 's office ~12/2024, "occurs usually with sudden severe pain" History of epilepsy last seizure ~2019 History of dyspnea "at times" CLL (chronic lymphocytic leukemia) currently on calquence 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, hospitalized for 3 months, abx "for years" Asthma inh and neb BPH (benign prostatic hyperplasia) Surgical History S/p bilateral myringotomy with tube placement Hx of colonoscopy Hx of right inguinal hernia repair History of prostate surgery Green[facility] surgery History of tonsillectomy and adenoidectomy H/O vasectomy [place] teeth removed S/P TURP 2019 History of bronchoscopy (2021) [facility] Social History Smoking Status: Never smoker Second Hand Exposure: No; Do You Dip or Chew Tobacco: No; Hx Alcohol Use: No Hx Substance Use: No Preferred Language: Finnish Communication Ability: Effective Bag Washer Required: No Beliefs That Will Affect Care: None Current Living Situation: Spouse Current Living Situation Comment: 2 story home Feels Safe at Home: Yes Safety Concerns: Feels Safe At This Time Assistive Devices: Glasses Review of Systems 2 Review of Systems: All systems reviewed & are unremarkable except as noted in HPI & below Physical Exam 2 Physical Exam: Constitutional: No acute distress HEENT: EOMI, PERRLA Respiratory system: Decreased air entry bilaterally, no wheeze, no rhonchi, positive crackles bilaterally, right> left CVS: S1-S2 positive, no murmurs or gallops Abdomen: Soft, nontender, nondistended, positive bowel sounds x4 Extremities: +2 pulses bilaterally radialis/ dorsalis pedis, no cyanosis, no edema Neuro: Awake alert oriented x3 Psych: Normal mood and affect G/U: No [place] Skin: no rashes, warm and dry Lymphatic: no cervical or axillary lymphadenopathy Results & Data Results & Data Vital Signs (Past 12 Hours) Vital Signs Temp Pulse Pulse Resp BP Pulse Ox O2 Del Method 04/09/25 08:43 Nasal Cannula 04/09/25 08:05 36.8 C 76 20 128/66 91 Nasal Cannula 04/09/25 07:00 76 04/09/25 02:22 37 C 73 18 129/57 L 91 Nasal Cannula 04/09/25 02:06 Nasal Cannula 04/09/25 02:06 76 04/08/25 23:25 37.3 C 74 22 116/63 91 Nasal Cannula O2 Flow Rate 04/09/25 08:43 04/09/25 08:05 3 04/09/25 07:00 04/09/25 02:22 2 04/09/25 02:06 2.5 04/09/25 02:06 04/08/25 23:25 2 Laboratory Results 04/09/25 06:07 04/09/25 06:07 PG Care Time/CCT Total # of Minutes Spent Total Time Spent with Patient: Total time spent is greater than 50% in coordination of care (as documented) at patient's floor/unit and/or counseling patient: [place] [address] INT INP/OBS CARE 3/75MIN Patient Type New Diagnoses Multifocal pneumonia J18.9 CLL (chronic lymphocytic leukemia) C91.10 Acute hypoxemic respiratory failure J96.01 Enterovirus infection B34.1 Rhinovirus infection B34.8 Hypogammaglobulinemia D80.[address] R93.89 Asthma J45.909
[2025-04-09] MEDS: AZITHROMYCIN 500 MG/255 ML BAG IV SCH (11:52)
[2025-04-09] MEDS: PIPERACILLIN/TAZOBACTAM 4.5 GM/100 ML BAG IV SCH (13:53)
[2025-04-09] MEDS: AREDS PO SCH (17:03)
[2025-04-09] MEDS: FORMOTEROL 20 MCG/2 ML VIAL NEB SCH (19:14)
[2025-04-09] MEDS: BUDESONIDE 0.25 MG/2 ML VIAL (PULMICORT) NEB SCH (19:14)
[2025-04-09] MEDS: SODIUM CHLOR 7% 4 ML NEB NEB SCH (19:14)
[2025-04-10 06:41] LABS: Hematocrit (blood only) 31.8 % (42.0-52.0); Hemoglobin 11.1 g/dl (14.0-18.0); Mean Corpuscular Hemoglobin 33.0 pg (25.0-34.0); Mean Corpuscular Volume 94.6 fL (80.0-100.0); Platelet Count 194 K/uL (130-400); RDW Standard Deviation 46.7 fL (36.4-46.3); Red Blood Count 3.36 M/uL (4.70-6.10); White Blood Count 15.07 K/ul (4.8-10.8)
[2025-04-10 07:00] LABS: Anion Gap 7.0 (3-11); Blood Urea Nitrogen 23.0 mg/dl (6-23); Calcium 9.9 mg/dl (8.6-10.3); Carbon Dioxide 24.0 mmol/L (21-32); Chloride 107.0 mmol/L (98-107); Creatinine Clr Calc Pharmacy 46.6 ml/min; Glucose 115.0 mg/dl (70-99(Fasting)); Magnesium 1.8 mg/dl (1.7-2.4); Potassium 3.9 mmol/L (3.5-5.1); Sodium 138.0 mmol/L (136-145)
--- NOTE | 2025-04-10 08:06 | Hospitalist Progress Note ---
Date of Service April 10, 2025 Assessment & Plan (1) Acute hypoxemic respiratory failure: (2) Bilateral pneumonia: Plan: Acute hypoxic resp. failure Community-acquired pneumonia Entero/Rhinovirus History of CLL History of IgG deficiency COPD. Asthma Patient is 80-year-old male with PMH asthma/COPD overlap, bronchiectasis and chronic IgG deficiency, history of TB, history of B cell CLL, HLD, GERD, BPH, CKD III, presented to ER on 04/08/25 with c/o increased cough, SOB x several days, fever.. Recent failed outpt treatment with doxycycline and prednisone for respiratory symptoms No recorded fever overnight. Has been on 4L oxygen via NC since 04/09/25. WBC: 15 (from 12.7 on admission). Admission lactate: WNL and procalcitonin was 1.0 Respiratory bio panel: + entero/rhinovirus CXR: Opacity bilateral lung bases, right greater than left Preliminary blood cultures pending Initially treated with cefepime, azithromycin on admission and was changed to Zosyn and azithromycin on 04/09/25. Continue Zosyn, azithromycin Sputum culture sputum AFB ordered. MRSA swab negative Continue incentive spirometry, flutter valve Pulmonology consulted. Added hypertonic saline neb, Pulmicort and formoterol nebs. Recommended continuing Zosyn, azithromycin History of CLL Chronic IgG deficiency Continue Calquence Continue infusion as outpatient every 28 days BPH Continue on finasteride DVT Prophylaxis Heparin SQ Pt was seen and care coordinated with Dr Pace. Admission and Anticipated Discharge Date Admission Date: April 08, 2025 Supervising Physician Co-Signing Physician Notes Pt was seen and examined by me, care coordinated angel/ Kang Edmonds PA-C, pls refer to her note above for further detail. Pt currently feels about the same, he continues to require suppl. O2, on 4L. Pt on broad spectrum abx zosyn + azithromycin. Blood cultx so far negative, sputum cultx uncollected. Pulm. med. consulted and discussed with - will also need to discuss w/ heme/onc Dr. Pierre on discharge about pt's IVIG. Pt's son present at the bedside and updated as well. MD Sanjeev I spent a total of 20 minutes coordinating, documenting, and providing care for this patient excluding time spend in the performance of separately billed services or time spent by another provider / QHP. Subjective Patient seen and examined lying supine in bed Still with dyspnea and worse with talking. Currently on 4L via NC with O2 sat 92%. Denies CP. Doesn't feel much improved from admission 2 days ago. States still with nasal congestion and post nasal drip. Reports yellow rhinorrhea and this morning blew nose with yellow mucous mixed with blood. Denies productive cough. Yesterday had episode of nausea without vomiting. States moving bowels. Decreased appetite but is eating and drinking some. Yesterday with chills. No recorded fever. Denies HINES, dizziness, palpitations, hemoptysis, abdominal pain, extremity edema, rashes, urinary symptoms. Review of Systems Review of Systems: All systems reviewed & are unremarkable except as noted in HPI & below Physical Exam Physical Exam: General: +dyspnea with speech, On 4L O2 via NC, ill appearing, WDWN Head: normocephalic, atraumatic Eyes: conjunctiva non-injected, anicteric ENT: normal inspection external ears, nose, mucous membranes moist Neck: supple, trachea midline Lungs: On 4L O2 via NC with sat 92%, +noted dyspnea with speaking in sentences, +rales greater at right base than left CV: RRR, no murmur, no pretibial edema Abd: normal BS, soft, non-tender Ext: no cyanosis, no calf tenderness Neuro: A&O x 3, no focal deficits noted, normal affect Skin: warm, dry Results & Data Results & Data Vital Signs (Past 12 Hours) Vital Signs Temp Pulse Resp BP BP Pulse Ox O2 Del Method 04/10/25 07:58 37.2 C 73 20 118/61 91 Nasal Cannula 04/10/25 07:37 73 20 92 Nasal Cannula 04/09/25 23:23 36.5 C 82 20 146/65 H 94 Nasal Cannula 04/09/25 21:19 Nasal Cannula O2 Flow Rate 04/10/25 07:58 4 04/10/25 07:37 4 04/09/25 23:23 4 04/09/25 21:19 4 Laboratory Results Short CBC 04/10/25 Range/Units 06:21 WBC 15.07 H (4.8-10.8) K/ul Hgb 11.1 L (14.0-18.0) g/dl Hct 31.8 L (42.0-52.0) % Plt Count 194 (130-400) K/uL BMP 04/10/25 06:21 Sodium 138 Potassium 3.9 Chloride 107 Carbon Dioxide 24 BUN 23 Creatinine 1.18 Glucose 115 H Calcium 9.9 Medications Administered Current Inpatient Medications Acalabrutinib (Acalabrutinib Maleate 100 Mg Tab) 100 mg PO BID@0800,2000 REPLACED BY [facility] Stop: 05/08/25 19:59 Last Admin: 04/10/25 09:19 Dose: 100 mg Acetaminophen (Acetaminophen 325 Mg Tab) 650 mg PO Q4H PRN PRN Reason: Pain or Fever Stop: 05/08/25 16:16 Last Admin: 04/10/25 11:54 Dose: 650 mg Azithromycin (Azithromycin 250 Mg Tab) 250 mg PO [facility] Stop: 04/13/25 09:01 Budesonide (Budesonide 0.25 Mg/2 Ml Vial (Pulmicort)) 0.25 mg NEB BIDR REPLACED BY [facility] Stop: 05/09/25 18:59 Last Admin: 04/10/25 07:37 Dose: 0.25 mg Finasteride (Finasteride 5 Mg Tab) [facility] Stop: 05/09/25 08:59 Last Admin: 04/10/25 09:20 Dose: 5 mg Fluticasone Propionate (Fluticasone Propionate Na Spr 16 Gm Btl) 2 sprays [facility] Stop: 05/09/25 08:59 Last Admin: 04/10/25 09:20 Dose: 2 sprays Formoterol Fumarate (Formoterol 20 Mcg/2 Ml Vial) 20 mcg NEB BIDR REPLACED BY [facility] Stop: 05/09/25 18:59 Last Admin: 04/10/25 07:37 Dose: 20 mcg Guaifenesin (Guaifenesin 600 Mg Tabcr) 1,200 mg PO Q12 REPLACED BY [facility] Stop: 05/08/25 20:59 Last Admin: 04/10/25 09:19 Dose: 1,200 mg Heparin Sodium (Porcine) (Heparin Sod 5,000 Unit/0.5 Ml Vial) 5,000 units SQ Q8 REPLACED BY [facility] Stop: 05/08/25 21:59 Last Admin: 04/10/25 05:58 Dose: Not Given Promethazine HCl (Phenergan) 6.25 mg in 50.25 mls @ 201 mls/hr IV Q6H PRN PRN Reason: Nausea And Vomiting Stop: 05/08/25 16:16 Piperacillin Sod/Tazobactam Sod (Zosyn) 4.5 gm in 100 mls @ 25 mls/hr IV Q8H FRANCIS; Protocol Stop: 04/14/25 13:59 Last Infusion: 04/10/25 10:19 Dose: Infused Levalbuterol HCl (Levalbuterol 1.25 Mg/3 Ml Neb) 1.25 mg NEB Q6H PRN PRN Reason: Shortness Of Breath Or Wheezing Stop: 05/08/25 16:16 Loratadine (Loratadine 10 Mg Tab) 10 mg PO QAM REPLACED BY [facility] Stop: 05/09/25 08:59 Last Admin: 04/10/25 09:19 Dose: 10 mg Magnesium Oxide (Magnesium Oxide 400 Mg Tab) 400 mg PO QAM REPLACED BY [facility] Stop: 05/11/25 08:59 Melatonin (Melatonin 3 Mg Tab) 3 mg PO HS PRN PRN Reason: Sleep Stop: 05/08/25 19:52 Last Admin: 04/08/25 21:46 Dose: 3 mg Multivitamins/Minerals (Cerovite Adv Formula Tab) 1 tab PO QAM REPLACED BY [facility] Stop: 05/09/25 08:59 Last Admin: 04/10/25 09:19 Dose: 1 tab Areds2~Non-Formulary (Patient's Own Med) 1 each PO 0800,1700 REPLACED BY [facility] Stop: 05/09/25 16:59 Last Admin: 04/10/25 09:18 Dose: 1 tab Polyethylene Glycol (Polyethylene (Miralax) 17 Gm Pack) 17 gm PO DAILY PRN PRN Reason: Constipation Stop: 05/08/25 16:16 Psyllium Hydrophilic Mucilloid (Psyllium Husk 4gm Packet) 4 gm PO QAM REPLACED BY [facility] Stop: 05/09/25 08:59 Last Admin: 04/10/25 09:20 Dose: 4 gm Sodium Chloride (Sodium Chlor 7% 4 Ml Neb) 4 ml NEB BIDR FRANCIS Stop: 05/09/25 18:59 Last Admin: 04/10/25 07:37 Dose: 4 ml Sodium Chloride (Sodium Chloride 0.65% Na Soln 45 Ml ([place])) 2 sprays NA QID PRN PRN Reason: Nasal Congestion Stop: 05/10/25 10:10
[2025-04-10] MEDS: MAGNESIUM SULFATE / D5W 1 GM/100 ML BAG IV ONE (09:17)
[2025-04-10] MEDS ORDERED: SODIUM CHLORIDE 0.65% NA SOLN 45 ML (OCEAN) PRN (10:11)
--- NOTE | 2025-04-10 11:46 | Pulmonology Progress Note ---
Date of Service April 10, 2025 Assessment & Plan (1) Multifocal pneumonia: (2) CLL (chronic lymphocytic leukemia): (3) Acute hypoxemic respiratory failure: (4) Enterovirus infection: (5) Rhinovirus infection: (6) Hypogammaglobulinemia: (7) Abnormal chest CT: (8) Asthma: Plan PFT 10/26/2023 personally reviewed: No obstructive lung dysfunction, insignificant bronchodilator response, normal TLC, mild decrease in DLCO (Increase in FVC by 200 mL, increase in FEV1 by 320 mL, increase in DLCO 43--> 61% compared to 11/28) FVC 3.99 L 97%, FEV1 2.91 L 98%, FEV1/FVC 73%, ERV 130%, RV 94%, TLC 86%, RV/TLC-5%, DLCO 61%, DLCO/VA 81% -- Acute hypoxic respiratory failure Secondary to multifocal pneumonia Respiratory BioFire negative for entero-/rhinovirus on 04/08/2025, he was positive for the same even on 12/05/2024 Procalcitonin 1.09 Nasal MRSA negative --Asthma-COPD overlap syndrome Patient was diagnosed in his late 40s He did have symptoms in the child but he was never diagnosed officially with it Does have seasonal allergies Non smoker Not in exacerbation On Breo 200 at home Patient was able to successfully take him to the off of Spiriva. -- Bronchiectasis and chronic IgG deficiency Sputum culture in outside facility grew Achromobacter denitrificans. Multi drug resistance pattern-- Sensitive to: Zosyn, Amikacin, Gentamicin, imipenem, tobramycin , Completed the course of IV Zosyn 11/27/2021 LULI grew on sputum 11/16/21 only one sample, Not on treatment Patient does have mediastinal lymphadenopathy from before most like from underlying CML Autoimmune workup 08/11/2023 negative for everything, complements within normal limit Hospitalizations from August 2023 showed diffuse groundglass opacities bilaterally, respiratory bio fire was negative for everything at that time. He was given steroids as well as antibiotics and he did find significant benefit. HRCT December 2023 showed No significant reticular markings, groundglass opacities resolved Pulmonary toxicity/pneumonitis from TKI could be in the differential. I discussed this with Dr. Carlos Pirere, plan was if in future he gets similar problems then need to stop the medication For bronchiectasis continue with Mucinex and Flutter valve whenever he has chest congestion HRCT 12/26/2023 personally reviewed: Linear scarring of the left upper lobe No increased reticular markings or honeycombing Mediastinal lymphadenopathy persists -- Chronic cough Multifactorial Chronic rhinitis with postnasal drip History of bronchiectasis also playing its part Continue [id number]-[id number]-pnerual on as-needed basis along with fluticasone nasal spray Gargling with lukewarm water after adding a pinch of salt and will also be helpful --History of TB Diagnosed 1969 s/p treatment with isoniazid and streptomycin Patient does have some residual scarring in the left upper lobe which could be from history of TB --Chronic IgG deficiency Gets infusion every 28 days Given the chronic IgG deficiency, I think it is reasonable to get in touch with Dr. Carlos Pierre and see if he is able to decrease the frequency of IgG or change the brand. --Hx of CLL Follows up with Dr. Pierre Started on Acalabrutinib 02/2022 (Calquence) Plan: Continue with antibiotics Currently on azithromycin and Zosyn, QTc 415 Nebulized bronchodilators while in the hospital Hypertonic saline with flutter valve. Add Mucomyst nebulized to the regimen Follow sputum culture and sputum AFB Continue with incentive spirometry Repeat chest x-ray tomorrow, if the patient does not show improvement on the chest x-ray tomorrow then I will order a CAT scan of the chest without contrast Please note the above document was generated using voice recognition software. It may contain grammatical, syntax or spelling errors.Any formal questions or concerns about the content, text or information contained within the body of this dictation should be directly addressed to the provider for clarification. Admission and Anticipated Discharge Date Admission Date: April 08, 2025 Subjective Patient seen and examined at bedside. No acute distress, no adverse events overnight He said he had a good night sleep Was saturating 91% on 4 L nasal cannula Patient's son as well as are in the room at the time of examination He does complain of cough but is not able to bring up the phlegm. No hemoptysis Denies any nausea or vomiting Appetite is fair Review of Systems 2 Review of Systems: All systems reviewed & are unremarkable except as noted in Subjective Physical Exam 2 Physical Exam: Constitutional: No acute distress HEENT: EOMI, PERRLA Respiratory system: Decreased air entry bilaterally, no wheeze, no rhonchi, positive crackles bilaterally, right> left CVS: S1-S2 positive, no murmurs or gallops Abdomen: Soft, nontender, nondistended, positive bowel sounds x4 Extremities: +2 pulses bilaterally radialis/ dorsalis pedis, no cyanosis, no edema Neuro: Awake alert oriented x3 Psych: Normal mood and affect G/U: No Woodson Skin: no rashes, warm and dry Lymphatic: no cervical or axillary lymphadenopathy Results & Data Results & Data Vital Signs (Past 12 Hours) Vital Signs Temp Pulse Resp BP BP Pulse Ox O2 Del Method 04/10/25 11:30 36.6 C 76 18 124/64 92 Nasal Cannula 04/10/25 07:58 37.2 C 73 20 118/61 91 Nasal Cannula 04/10/25 07:37 73 20 92 Nasal Cannula 04/10/25 07:28 Nasal Cannula O2 Flow Rate 04/10/25 11:30 4 04/10/25 07:58 4 04/10/25 07:37 4 04/10/25 07:28 4 Laboratory Results 04/10/25 06:21 04/10/25 06:21 PG Care Time/CCT Total # of Minutes Spent Total Time Spent with Patient: Total time spent is greater than 50% in coordination of care (as documented) at patient's floor/unit and/or counseling patient: Coding Level of Care Code 76437 SUB INP/OBS CARE 2/35MIN Diagnoses Multifocal pneumonia J18.9 CLL (chronic lymphocytic leukemia) C91.10 Acute hypoxemic respiratory failure J96.01 Enterovirus infection B34.1 Rhinovirus infection B34.8 Hypogammaglobulinemia D80.[address] R93.89 Asthma J45.909
[2025-04-10] MEDS: ACETAMINOPHEN 325 MG TAB PO PRN (11:54)
--- NOTE | 2025-04-10 15:05 | Electrocardiogram Report ---
Test Reason : Blood Pressure : */* mmHG Vent. Rate : 82 BPM Atrial Rate : 82 BPM P-R Int : 168 ms QRS Dur : 90 ms QT Int : 356 ms P-R-T Axes : 64 31 59 degrees QTcB Int : 415 ms Sinus rhythm with marked sinus arrhythmia with frequent Premature ventricular complexes Borderline ECG When compared with ECG of 05-Dec-2024 15:13, Premature ventricular complexes are now Present sinus arrhythmia is now present Confirmed by Paul Carranza ([id number]) on 04/10/2025 3:04:52 PM Referred By: REFERRED SELF Confirmed By: Paul Carranza
[2025-04-10] MEDS: ACETYLCYSTEINE 20% INHAL SOLN 4ML ***DISPENSED BY RESP. INH SCH (19:37)
[2025-04-11 06:22] LABS: Hematocrit (blood only) 32.4 % (42.0-52.0); Hemoglobin 11.0 g/dl (14.0-18.0); Mean Corpuscular Hemoglobin 32.7 pg (25.0-34.0); Mean Corpuscular Volume 96.4 fL (80.0-100.0); Platelet Count 207 K/uL (130-400); RDW Standard Deviation 48.1 fL (36.4-46.3); Red Blood Count 3.36 M/uL (4.70-6.10); White Blood Count 15.35 K/ul (4.8-10.8)
[2025-04-11 06:53] LABS: Anion Gap 8.0 (3-11); Blood Urea Nitrogen 25.0 mg/dl (6-23); Calcium 9.8 mg/dl (8.6-10.3); Carbon Dioxide 23.0 mmol/L (21-32); Chloride 106.0 mmol/L (98-107); Creatinine Clr Calc Pharmacy 45.3 ml/min; Glucose 114.0 mg/dl (70-99(Fasting)); Magnesium 2.0 mg/dl (1.7-2.4); Potassium 3.8 mmol/L (3.5-5.1); Sodium 137.0 mmol/L (136-145)
[2025-04-11] MEDS: LEVALBUTEROL 1.25 MG/3 ML NEB NEB PRN (07:27)
--- NOTE | 2025-04-11 07:32 | Hospitalist Progress Note ---
Date of Service April 11, 2025 Assessment & Plan (1) Acute hypoxemic respiratory failure: (2) Bilateral pneumonia: Plan: Acute hypoxic resp. failure Community-acquired pneumonia Entero/Rhinovirus History of CLL History of IgG deficiency COPD. Asthma Patient is 80-year-old male with PMH asthma/COPD overlap, bronchiectasis and chronic IgG deficiency, history of TB, history of B cell CLL, HLD, GERD, BPH, CKD III, presented to ER on 04/08/25 with c/o increased cough, SOB x several days, fever.. Recent failed outpt treatment with doxycycline and prednisone for respiratory symptoms No recorded fevers during admission Has been on 4L oxygen via NC since 04/09/25. WBC: 15 (from 12.7 on admission). Admission lactate: WNL and procalcitonin was 1.0 Respiratory bio panel: + entero/rhinovirus CXR: Opacity bilateral lung bases, right greater than left Repeat CXR today: Interval demonstration of bilateral lower zones opacification, more on the right side, with worsening of the left lower lung zone opacity, could be due to infection or edema. Interval obliteration of the right CP angle suggests mild effusion/ reaction. 04/11/25 CT Chest: 1. Extensive bilateral lower lobe, right middle lobe and lingular consolidation suggestive of multifocal pneumonia. A follow-up chest CT in 3 months to ensure resolution is recommended. 2. Mildly enlarged mediastinal and bilateral hilar lymph nodes which have increased in size since prior CT. These may be reactive and can be assessed on follow-up CT. 3. Small right and trace left pleural effusions. Preliminary blood cultures without growth Initially treated with cefepime, azithromycin on admission and was changed to Zosyn and azithromycin on 04/09/25. Continue Zosyn, azithromycin Sputum culture sputum AFB ordered if patient can produce sputum MRSA swab negative Continue incentive spirometry, flutter valve Pulmonology consulted. Appreciate recommendations of added hypertonic saline neb, Pulmicort and formoterol nebs. Recommended continuing Zosyn, azithromycin History of CLL Chronic IgG deficiency Continue Calquence On infusion as outpatient every 28 days BPH Continue on finasteride DVT Prophylaxis Heparin SQ Pt was seen and care coordinated with Dr Pace. I spent a total of 45 minutes reviewing notes, outpatient records, labs, medication, coordinating, documenting and providing care for this patient excl uding time spent in the performance of separately billed services and excluding time spent by another provider/QHP. Admission and Anticipated Discharge Date Admission Date: April 08, 2025 Supervising Physician Co-Signing Physician Notes Pt was seen and examined by me, care coordinated w/ Kang Edmonds PA-C, pls refer to her note above for further detail. Pt currently feels about the same, he continues to require suppl. O2, on 4L. Has rhinorrhea but difficulty coughing up any sputum. Pulmonary medicine following and ordered CT chest today - Extensive bilateral lower lobe, right middle lobe and lingular consolidation suggestive of multifocal pneumonia. Pt on broad spectrum abx zosyn + azithromycin. Blood cultx so far negative, sputum cultx uncollected (pt was not able to produce sputum thus far). MD Sanjeev I spent a total of 20 minutes coordinating, documenting, and providing care for this patient excluding time spend in the performance of separately billed services or time spent by another provider / QHP. Subjective Patient seen and examined. Lying in bed. On 4L NC with sat 92%. States continues to have SOB and chest heaviness that he describes as "hard time breathing" and feels this is similar to admission. Still not productive cough but having nasal congestion, purulent rhinorrhea with blood tinge rhinorrhea. Remains with decreased appetite. No recorded fevers. Moving bowels. Denies HINES, dizziness, palpitations, hemoptysis, abdominal pain, extremity edema, rashes, urinary symptoms. Review of Systems Review of Systems: All systems reviewed & are unremarkable except as noted in HPI & below Physical Exam Physical Exam: General: +dyspnea with speech, On 4L O2 via NC, ill appearing, WDWN Head: normocephalic, atraumatic Eyes: conjunctiva non-injected, anicteric ENT: normal inspection external ears, nose, mucous membranes moist Neck: supple, trachea midline Lungs: On 4L O2 via NC with sat 92%, +noted dyspnea with speaking in sentences, +rales bilateral bases CV: RRR, no murmur, no pretibial edema Abd: normal BS, soft, non-tender Ext: no cyanosis, no calf tenderness Neuro: A&O x 3, no focal deficits noted, normal affect Skin: warm, dry Results & Data Results & Data Vital Signs (Past 12 Hours) Vital Signs Temp Pulse Pulse Pulse Resp BP Pulse Ox 04/11/25 07:00 74 04/11/25 04:05 36.1 C L 81 20 125/60 92 04/10/25 23:50 37.0 C 82 20 125/63 94 04/10/25 23:35 80 04/10/25 21:33 04/10/25 20:10 36.7 C 58 L 18 117/58 L 93 04/10/25 19:38 84 22 94 O2 Del Method O2 Flow Rate 04/11/25 07:00 04/11/25 04:05 Nasal Cannula 4 04/10/25 23:50 Room Air 04/10/25 23:35 04/10/25 21:33 Nasal Cannula 4 04/10/25 20:10 Nasal Cannula 4 04/10/25 19:38 Nasal Cannula 4 Laboratory Results Short CBC 04/11/25 Range/Units 05:52 WBC 15.35 H (4.8-10.8) K/ul Hgb 11.0 L (14.0-18.0) g/dl Hct 32.4 L (42.0-52.0) % Plt Count 207 (130-400) K/uL BMP 04/11/25 05:52 Sodium 137 Potassium 3.8 Chloride 106 Carbon Dioxide 23 BUN 25 H Creatinine 1.18 Glucose 114 H Calcium 9.8 Diagnostic Findings Chest X-Ray 04/11/25 07:00 EXAM: XR chest 1V portable CLINICAL HISTORY: f/u TECHNIQUE: An X-ray image of the chest is obtained in AP projection. COMPARISON: 04/08/2025 CR. FINDINGS: Pulmonary Parenchyma: Interval demonstration of bilateral lower zones opacification, more on the right side, with worsening of the left lower lung zone opacity, could be due to infection or edema. Interval obliteration of the right CP angle suggests mild effusion/ reaction. Heart and Mediastinum: Heart size and shape are normal. No mediastinal widening or masses. No hilar or mediastinal lymphadenopathy. Bony Thorax: The bony thorax appears intact without fractures or deformities. Soft Tissues: Soft tissues overlying the chest wall are unremarkable. IMPRESSION: 1. Interval demonstration of bilateral lower zones opacification, more on the right side, with worsening of the left lower lung zone opacity, could be due to infection or edema. 2. Interval obliteration of the right CP angle suggests mild effusion/ reaction. Electronically signed by Arturo Mix 04-11-2025 08:[address] 04/11/25 10:24 CT OF THE CHEST WITHOUT IV CONTRAST CLINICAL HISTORY: Infection. COMPARISON STUDY: Chest CTs December 05, 2024 and January 07, 2025. Chest radiograph performed earlier today. CT DOSE: 277.23 mGy.cm TECHNIQUE: Axial images of the chest were obtained without IV contrast. Images were reviewed in the axial, sagittal, and coronal planes. IV contrast was not administered for this examination. Automated exposure control was utilized for the study. A dose lowering technique was utilized adhering to the principles of ALARA. FINDINGS: Multiple mildly enlarged mediastinal and bilateral hilar lymph nodes have mildly increased in size since chest CT of January 07, 2025. A subcarinal lymph node on image 126 measures 2.9 x 1.8 cm, previously 2.3 x 1.3 cm. Size of the heart is normal. There is no pericardial effusion. Small right and trace left pleural effusions are present. There is no pneumothorax. Central airways are patent. There is extensive consolidation within the right middle and right lower lobes with multifocal airspace opacities within the lingula and left lower lobe. Mild alveolar opacities within the right upper lobe are present. Findings have markedly progressed when compared to CT of January 07, 2025. There is no cavitation. Borderline splenomegaly is noted. IMPRESSION: 1. Extensive bilateral lower lobe, right middle lobe and lingular consolidation suggestive of multifocal pneumonia. A follow-up chest CT in 3 months to ensure resolution is recommended. 2. Mildly enlarged mediastinal and bilateral hilar lymph nodes which have increased in size since prior CT. These may be reactive and can be assessed on follow-up CT. 3. Small right and trace left pleural effusions. ACT 112: Negative or not required by law. Electronically signed by: Carmelo Bowie M.D. 04/11/2025 11:27 AM
[2025-04-11] MEDS: AZITHROMYCIN 250 MG TAB PO SCH (08:24)
[2025-04-11] MEDS: MAGNESIUM OXIDE 400 MG TAB PO SCH (08:24)
--- NOTE | 2025-04-11 08:44 | XRay Report ---
EXAM: XR chest 1V portable CLINICAL HISTORY: f/u TECHNIQUE: An X-ray image of the chest is obtained in AP projection. COMPARISON: 04/08/2025 CR. FINDINGS: Pulmonary Parenchyma: Interval demonstration of bilateral lower zones opacification, more on the right side, with worsening of the left lower lung zone opacity, could be due to infection or edema. Interval obliteration of the right CP angle suggests mild effusion/ reaction. Heart and Mediastinum: Heart size and shape are normal. No mediastinal widening or masses. No hilar or mediastinal lymphadenopathy. Bony Thorax: The bony thorax appears intact without fractures or deformities. Soft Tissues: Soft tissues overlying the chest wall are unremarkable. IMPRESSION: 1. Interval demonstration of bilateral lower zones opacification, more on the right side, with worsening of the left lower lung zone opacity, could be due to infection or edema. 2. Interval obliteration of the right CP angle suggests mild effusion/ reaction. Electronically signed by Arturo Mix 04-11-2025 08:41 AM
--- NOTE | 2025-04-11 10:26 | Pulmonology Progress Note ---
Date of Service April 11, 2025 Assessment & Plan (1) Multifocal pneumonia: (2) CLL (chronic lymphocytic leukemia): (3) Acute hypoxemic respiratory failure: (4) Enterovirus infection: (5) Rhinovirus infection: (6) Hypogammaglobulinemia: (7) Abnormal chest CT: (8) Asthma: Plan PFT 10/26/2023 personally reviewed: No obstructive lung dysfunction, insignificant bronchodilator response, normal TLC, mild decrease in DLCO (Increase in FVC by 200 mL, increase in FEV1 by 320 mL, increase in DLCO 43--> 61% compared to 11/28) FVC 3.99 L 97%, FEV1 2.91 L 98%, FEV1/FVC 73%, ERV 130%, RV 94%, TLC 86%, RV/TLC-5%, DLCO 61%, DLCO/VA 81% CT chest 04/11/2025 personally reviewed: Dense consolidative process appreciated bilaterally in the right middle, right lower as well as left lower lobe Significant mediastinal lymphadenopathy which is chronic -- Acute hypoxic respiratory failure Secondary to multifocal pneumonia Respiratory BioFire negative for entero-/rhinovirus on 04/08/2025, he was positive for the same even on 12/05/2024 Procalcitonin 1.09 Nasal MRSA negative --Asthma-COPD overlap syndrome Patient was diagnosed in his late 40s He did have symptoms in the child but he was never diagnosed officially with it Does have seasonal allergies Non smoker Not in exacerbation On Breo 200 at home Patient was able to successfully take him to the off of Spiriva. -- Bronchiectasis and chronic IgG deficiency Sputum culture in outside facility grew Achromobacter denitrificans. Multi drug resistance pattern-- Sensitive to: Zosyn, Amikacin, Gentamicin, imipenem, tobramycin , Completed the course of IV Zosyn 11/27/2021 LULI grew on sputum 11/16/21 only one sample, Not on treatment Patient does have mediastinal lymphadenopathy from before most like from underlying CML Autoimmune workup 08/11/2023 negative for everything, complements within normal limit Hospitalizations from August 2023 showed diffuse groundglass opacities bilaterally, respiratory bio fire was negative for everything at that time. He was given steroids as well as antibiotics and he did find significant benefit. HRCT December 2023 showed No significant reticular markings, groundglass opacities resolved Pulmonary toxicity/pneumonitis from TKI could be in the differential. I discussed this with Dr. Carlos Pierre, plan was if in future he gets similar problems then need to stop the medication For bronchiectasis continue with Mucinex and Flutter valve whenever he has chest congestion HRCT 12/26/2023 personally reviewed: Linear scarring of the left upper lobe No increased reticular markings or honeycombing Mediastinal lymphadenopathy persists -- Chronic cough Multifactorial Chronic rhinitis with postnasal drip History of bronchiectasis also playing its part Continue [id number] on as-needed basis along with fluticasone nasal spray Gargling with lukewarm water after adding a pinch of salt and will also be helpful --History of TB Diagnosed 1969 s/p treatment with isoniazid and streptomycin Patient does have some residual scarring in the left upper lobe which could be from history of TB --Chronic IgG deficiency Gets infusion every 28 days Given the chronic IgG deficiency, I think it is reasonable to get in touch with Dr. Carlos Pierre and see if he is able to decrease the frequency of IgG or change the brand. --Hx of CLL Follows up with Dr. Pierre Started on Acalabrutinib 02/2022 ([facility]) Plan: Chest x-ray from today on personal review shows persistent opacities on the right side and worsening on the left Will get CT chest without contrast to see if there is predominance of groundglass opacities, if so pulmonary toxicity from tyrosine kinase inhibitor is in the differential Based on CAT scan of the chest and the clinical course will decide whether he will benefit from bronchoscopy Continue with antibiotics Currently on azithromycin and Zosyn, QTc 415 Nebulized bronchodilators while in the hospital Hypertonic saline with flutter valve and Mucomyst nebulized to the regimen Follow sputum culture and sputum AFB Continue with incentive spirometry Please note the above document was generated using voice recognition software. It may contain grammatical, syntax or spelling errors.Any formal questions or concerns about the content, text or information contained within the body of this dictation should be directly addressed to the provider for clarification. Admission and Anticipated Discharge Date Admission Date: April 08, 2025 Subjective Patient seen and examined at bedside. No acute distress, no adverse events overnight He was saturating 92% on 4 L nasal cannula He had just returned from after getting the CAT scan of the chest Denied any nausea or vomiting, fair appetite Still not able to bring up any phlegm. Is able to tolerate nebulizers without any issues Has been afebrile Review of Systems 2 Review of Systems: All systems reviewed & are unremarkable except as noted in Subjective Physical Exam 2 Physical Exam: Constitutional: No acute distress HEENT: EOMI, PERRLA Respiratory system: Decreased air entry bilaterally, no wheeze, no rhonchi, positive crackles bilaterally, right> left CVS: S1-S2 positive, no murmurs or gallops Abdomen: Soft, nontender, nondistended, positive bowel sounds x4 Extremities: +2 pulses bilaterally radialis/ dorsalis pedis, no cyanosis, no edema Neuro: Awake alert oriented x3 Psych: Normal mood and affect G/U: No Woodson Skin: no rashes, warm and dry Lymphatic: no cervical or axillary lymphadenopathy Results & Data Results & Data Vital Signs (Past 12 Hours) Vital Signs Temp Pulse Pulse Resp BP BP Pulse Ox 04/11/25 08:30 04/11/25 07:46 36.6 C 75 24 114/63 92 04/11/25 07:31 75 18 92 04/11/25 07:00 74 04/11/25 04:05 36.1 C L 81 20 125/60 92 04/10/25 23:50 37.0 C 82 20 125/63 94 04/10/25 23:35 80 O2 Del Method O2 Flow Rate 04/11/25 08:30 Nasal Cannula 4 04/11/25 07:46 Nasal Cannula 4 04/11/25 07:31 Nasal Cannula 4 04/11/25 07:00 04/11/25 04:05 Nasal Cannula 4 04/10/25 23:50 Room Air 04/10/25 23:35 Laboratory Results 04/11/25 05:52 04/11/25 05:52 PG Care Time/CCT Total # of Minutes Spent Total Time Spent with Patient: Total time spent is greater than 50% in coordination of care (as documented) at patient's floor/unit and/or counseling patient: Coding Level of Care Code 04991 SUB INP/OBS CARE 2/35MIN Diagnoses Multifocal pneumonia J18.9 CLL (chronic lymphocytic leukemia) C91.10 Acute hypoxemic respiratory failure J96.01 Enterovirus infection B34.1 Rhinovirus infection B34.8 Hypogammaglobulinemia D80.[address] R93.89 Asthma J45.909
--- NOTE | 2025-04-11 11:29 | CT Scan Report ---
CT OF THE CHEST WITHOUT IV CONTRAST CLINICAL HISTORY: Infection. COMPARISON STUDY: Chest CTs December 05, 2024 and January 07, 2025. Chest radiograph performed earlier toda y. CT DOSE: 277.23 mGy.cm TECHNIQUE: Axial images of the chest were obtained without IV contrast. Images were reviewed in the axial, sagittal, and coronal planes. IV contrast was not administered for this examination. Automat ed exposure control was utilized for the study. A dose lowering technique was utilized adhering to t he principles of ALARA. FINDINGS: Multiple mildly enlarged mediastinal and bilateral hilar lymph nodes have mildly increased in size since chest CT of January 07, 2025. A subcarinal lymph node on image 126 measures 2.9 x 1.8 cm, previously 2.3 x 1.3 cm. Size of the heart is normal. There is no pericardial effusion. Small right and trace left pleural effusions are present. There is no pneumothorax. Central airways are patent. T here is extensive consolidation within the right middle and right lower lobes with multifocal airspac e opacities within the lingula and left lower lobe. Mild alveolar opacities within the right upper lo be are present. Findings have markedly progressed when compared to CT of January 07, 2025. There is no c avitation. Borderline splenomegaly is noted. IMPRESSION: 1. Extensive bilateral lower lobe, right middle lobe and lingular consolidation suggestive of multifo marleni pneumonia. A follow-up chest CT in 3 months to ensure resolution is recommended. 2. Mildly enlarged mediastinal and bilateral hilar lymph nodes which have increased in size since bever[place] or CT. These may be reactive and can be assessed on follow-up CT. 3. Small right and trace left pleural effusions. ACT 112: Negative or not required by law. Electronically signed by: Carmelo Bowie M.D. 04/11/2025 11:27 AM
[2025-04-12 07:18] LABS: Hematocrit (blood only) 31.6 % (42.0-52.0); Hemoglobin 11.1 g/dl (14.0-18.0); Mean Corpuscular Hemoglobin 33.4 pg (25.0-34.0); Mean Corpuscular Volume 95.2 fL (80.0-100.0); Platelet Count 223 K/uL (130-400); RDW Standard Deviation 45.5 fL (36.4-46.3); Red Blood Count 3.32 M/uL (4.70-6.10); White Blood Count 19.72 K/ul (4.8-10.8)
[2025-04-12 07:35] LABS: Anion Gap 8.0 (3-11); Blood Urea Nitrogen 35.0 mg/dl (6-23); Calcium 10.2 mg/dl (8.6-10.3); Carbon Dioxide 23.0 mmol/L (21-32); Chloride 106.0 mmol/L (98-107); Creatinine Clr Calc Pharmacy 51.8 ml/min; Glucose 145.0 mg/dl (70-99(Fasting)); Magnesium 2.3 mg/dl (1.7-2.4); Potassium 4.1 mmol/L (3.5-5.1); Sodium 137.0 mmol/L (136-145)
--- NOTE | 2025-04-12 07:56 | Hospitalist Progress Note ---
Date of Service April 12, 2025 Assessment & Plan (1) Acute hypoxemic respiratory failure: (2) Bilateral pneumonia: Plan: Acute hypoxic resp. failure Community-acquired pneumonia Entero/Rhinovirus History of CLL History of IgG deficiency COPD. Asthma Patient is 80-year-old male with PMH asthma/COPD overlap, bronchiectasis and chronic IgG deficiency, history of TB, history of B cell CLL, HLD, GERD, BPH, CKD III, presented to ER on 04/08/25 with c/o increased cough, SOB x several days, fever.. Recent failed outpt treatment with doxycycline and prednisone for respiratory symptoms No recorded fevers during admission Has been on 4L oxygen via [place] since 04/09/25. WBC: 15 (from 12.7 on admission). Admission lactate: WNL and procalcitonin was 1.0 Respiratory bio panel: + entero/rhinovirus CXR: Opacity bilateral lung bases, right greater than left Repeat CXR today: Interval demonstration of bilateral lower zones opacification, more on the right side, with worsening of the left lower lung zone opacity, could be due to infection or edema. Interval obliteration of the right CP angle suggests mild effusion/ reaction. 04/11/25 CT Chest: 1. Extensive bilateral lower lobe, right middle lobe and lingular consolidation suggestive of multifocal pneumonia. A follow-up chest CT in 3 months to ensure resolution is recommended. 2. Mildly enlarged mediastinal and bilateral hilar lymph nodes which have increased in size since prior CT. These may be reactive and can be assessed on follow-up CT. 3. Small right and trace left pleural effusions. blood culture NGTD Initially treated with cefepime, azithromycin on admission and was changed to Zosyn and azithromycin on 04/09/25. Continue Zosyn, azithromycin Sputum culture sputum AFB ordered if patient can produce sputum MRSA swab negative Continue incentive spirometry, flutter valve Pulmonology consulted. Appreciate recommendations of added hypertonic saline neb, Pulmicort and formoterol nebs. Recommended continuing Zosyn, azithromycin Discussed with Pulm who also recommends consulting ID due to hx of MAC and achromobacter cultures for definitive/duration of treatment He is improving significantly Continue IV solumedrol - pulm recommends 2-3 week steroid taper at d/c, possibility of TKI induced pneumonitis difficult to rule out Repeat Chest CT in 1 month, Hold Calquence for now and will discuss with heme/onc Dr Pierre, also recommend f/u with solar field installation crew member as outpt History of CLL Chronic IgG deficiency hold Calquence for now per pulm, will discuss with heme IVIG as outpatient every 28 days, last dose was 03/31/25. Will be due 4 weeks f rom this date BPH Continue on finasteride DVT Prophylaxis Heparin SQ Pt was seen and care coordinated with Dr Pace. I spent a total of 46 minutes reviewing notes, outpatient records, labs, medication, coordinating, documenting and providing care for this patient excluding time spent in the performance of separately billed services and exc luding time spent by another provider/QHP. Admission and Anticipated Discharge Date Admission Date: April 08, 2025 Supervising Physician Co-Signing Physician Notes Pt was seen and examined by me, care coordinated w/ B. JUNAID Camargo, pls refer to her note above for further detail. Pt feels much improved today, seen ambulating in hallway w/ RN, currently sitting up in chair and on RA, saturating 93%. Breath decreased on auscultation, no wheezing. Pulmonary medicine following and ordered CT chest yesterday - Extensive bilateral lower lobe, right middle lobe and lingular consolidation suggestive of multifocal pneumonia. Pt on broad spectrum abx zosyn + azithromycin. Pulm. recommends to consult w/ ID. Blood cultx so far negative, sputum cultx uncollected (pt was not able to produce sputum thus far). MD Sanjeev I spent a total of 20 minutes coordinating, documenting, and providing care for this patient excluding time spend in the performance of separately billed services or time spent by another provider / QHP. Subjective Pt was seen and examined in room 263-1. F/U PNA. He was up brushing teeth in the bathroom. He walked back to his bed and sat at bedside. He reports feeling better today. Denies f/c/s, chest pain, sob at rest, n/v/d. He is still requiring oxygen. He is moving his bowels. He continues to cough and has expectorated some, but he also feels its mostly what drains from his sinuses. Review of Systems Review of Systems: All systems reviewed & are unremarkable except as noted in HPI & below Physical Exam Physical Exam: Gen: Tall, thin, male, NAD, A&O x3 HEENT: Normocephalic, atraumatic, conjunctivae moist, sclerae anicteric, mucous membranes moist. Lung: decreased BS throughout, no wheezes/rales/rhonchi on supplemental o2 Heart: Regular rate, regular rhythm, no murmurs, rubs, or gallops Abdomen: Soft, NT, ND +BS x 4 Extremities: No edema Skin: Warm, no rash, negative turgor. Results & Data Results & Data Vital Signs (Past 12 Hours) Vital Signs Temp Pulse Pulse Resp BP Pulse Ox O2 Del Method 04/12/25 07:16 68 16 93 Nasal Cannula 04/12/25 07:06 68 04/12/25 04:43 36.6 C 67 20 115/62 92 Room Air, Nasal Cannula 04/12/25 00:31 36.9 C 70 20 133/65 93 Nasal Cannula 04/11/25 23:19 75 04/11/25 21:40 Nasal Cannula 04/11/25 20:10 36.9 C 70 20 133/65 93 Nasal Cannula O2 Flow Rate 04/12/25 07:16 3 04/12/25 07:06 04/12/25 04:43 4 04/12/25 00:31 4 04/11/25 23:19 04/11/25 21:40 4 04/11/25 20:10 4 Laboratory Results I have independently reviewed and interpreted patient's cbc, bmp, mag, phos, procal Short CBC 04/12/25 Range/Units 07:03 WBC 19.72 H (4.8-10.8) K/ul Hgb 11.1 L (14.0-18.0) g/dl Hct 31.6 L (42.0-52.0) % Plt Count 223 (130-400) K/uL BMP 04/12/25 07:03 Sodium 137 Potassium 4.1 Chloride 106 Carbon Dioxide 23 BUN 35 H Creatinine 1.06 Glucose 145 H Calcium 10.2 Medications Administered Current Inpatient Medications Acalabrutinib (Acalabrutinib Maleate 100 Mg Tab) 100 mg PO BID@0800,1999 [facility] Stop: 05/08/25 19:59 Last Admin: 04/12/25 08:39 Dose: 100 mg Acetaminophen (Acetaminophen 325 Mg Tab) 650 mg PO Q4H PRN PRN Reason: Pain or Fever Stop: 05/08/25 16:16 Last Admin: 04/10/25 11:54 Dose: 650 mg Acetylcysteine (Acetylcysteine 20% Inhal Soln 4ml Dispensed By Resp.) 5 ml INH Q12R [facility] Stop: 05/10/25 13:29 Last Admin: 04/12/25 07:13 Dose: 5 ml Azithromycin (Azith[facility] 250 Mg Tab) [facility] Stop: 04/13/25 09:01 Last Admin: 04/12/25 08:40 Dose: 250 mg Budesonide (Budesonide 0.25 Mg/2 Ml Vial (Pulmicort)) 0.25 mg NEB BIDR [facility] Stop: 05/09/25 18:59 Last Admin: 04/12/25 07:13 Dose: 0.25 mg Finasteride (Finasteride 5 Mg Tab) 5 mg PO [facility] Stop: 05/09/25 08:59 Last Admin: 04/12/25 08:40 Dose: 5 mg Fluticasone Propionate (Fluticasone Propionate Na Spr 16 Gm Btl) 2 sprays [facility] Stop: 05/09/25 08:59 Last Admin: 04/12/25 08:40 Dose: 2 sprays Formoterol Fumarate (Formoterol 20 Mcg/2 Ml Vial) 20 mcg NEB BIDR [facility] Stop: 05/09/25 18:59 Last Admin: 04/12/25 07:13 Dose: 20 mcg Guaifenesin (Guaifenesin 600 Mg Tabcr) 1,200 mg PO Q12 [facility] Stop: 05/08/25 20:59 Last Admin: 04/12/25 08:40 Dose: 1,200 mg Heparin Sodium (Porcine) (Heparin Sod 5,000 Unit/0.5 Ml Vial) 5,000 units SQ Q8 [facility] Stop: 05/08/25 21:59 Last Admin: 04/12/25 10:56 Dose: Not Given Promethazine HCl (Phenergan) 6.25 mg in 50.25 mls @ 201 mls/hr IV Q6H PRN PRN Reason: Nausea And Vomiting Stop: 05/08/25 16:16 Piperacillin Sod/Tazobactam Sod (Zosyn) 4.5 gm in 100 mls @ 25 mls/hr IV Q8H [facility]; Protocol Stop: 04/14/25 13:59 Last Admin: 04/12/25 13:27 Dose: 25 mls/hr Methylprednisolone 40 mg/ (Syringe) 0.64 mls @ 1.5 mls/min IV BID [facility] Stop: 05/11/25 12:29 Last Admin: 04/12/25 08:48 Dose: 1.5 mls/min Levalbuterol HCl (Levalbuterol 1.25 Mg/3 Ml Neb) 1.25 mg NEB Q6H PRN PRN Reason: Shortness Of Breath Or Wheezing Stop: 05/08/25 16:16 Last Admin: 04/11/25 20:06 Dose: 1.25 mg Loratadine (Loratadine 10 Mg Tab) 10 mg PO QAM [facility] Stop: 05/09/25 08:59 Last Admin: 04/12/25 08:40 Dose: 10 mg Magnesium Oxide (Magnesium Oxide 400 Mg Tab) 400 mg PO QAM [facility] Stop: 05/11/25 08:59 Last Admin: 04/12/25 08:40 Dose: 400 mg Melatonin (Melatonin 3 Mg Tab) 3 mg PO HS PRN PRN Reason: Sleep Stop: 05/08/25 19:52 Last Admin: 04/08/25 21:46 Dose: 3 mg Multivitamins/Minerals (Cerovite Adv Formula Tab) 1 tab PO QAM [facility] Stop: 05/09/25 08:59 Last Admin: 04/12/25 08:40 Dose: 1 tab Areds2~Non-Formulary (Patient's Own Med) 1 each PO 0800,1700 [facility] Stop: 05/09/25 16:59 Last Admin: 04/12/25 08:40 Dose: 1 tab Polyethylene Glycol (Polyethylene (Miralax) 17 Gm Pack) 17 gm PO DAILY PRN PRN Reason: Constipation Stop: 05/08/25 16:16 Psyllium Hydrophilic Mucilloid (Psyllium Husk 4gm Packet) 4 gm PO QAM [facility] Stop: 05/09/25 08:59 Last Admin: 04/12/25 08:40 Dose: 4 gm Sodium Chloride (Sodium Chlor 7% 4 Ml Neb) 4 ml NEB BIDR [facility] Stop: 05/09/25 18:59 Last Admin: 04/12/25 07:13 Dose: 4 ml Sodium Chloride (Sodium Chloride 0.65% Na Soln 45 Ml ([place])) 2 sprays NA QID PRN PRN Reason: Nasal Congestion Stop: 05/10/25 10:10
--- NOTE | 2025-04-12 13:35 | Pulmonology Progress Note ---
Date of Service April 12, 2025 Assessment & Plan (1) Multifocal pneumonia: (2) CLL (chronic lymphocytic leukemia): (3) Acute hypoxemic respiratory failure: (4) Enterovirus infection: (5) Rhinovirus infection: (6) Hypogammaglobulinemia: (7) Abnormal chest CT: (8) Asthma: Plan Patient with multifocal pneumonia with probable superimposed bacterial infection on top of viral bronchiolitis. Possibility of TKI induced pneumonitis is difficult to rule out. Agree with empiric IV methylprednisolone. Recommend discontinuation of Calquence for the time being. Would recommend a 2 to 3-week steroid taper. Will hold off bronchoscopy at this point in time since he is improving and his oxygen requirements are also improving. If his symptoms stagnate or he worsens, would recommend a bronchoscopy which can be done even as an outpatient. Recommend a follow-up CT chest in 1 month. I also recommended an ID consult to the hospitalist service given his complex history with prior infections including pseudomonal pneumonia, MAC infection and Achromobacter infection. He does have a history of bronchiectasis related to his IgG deficiency. He should follow-up with his clerk entry level as an outpatient as well. Admission and Anticipated Discharge Date Admission Date: April 08, 2025 Subjective Patient seen examined. He feels much better today and less short of breath. Oxygen requirements are improved. He feels that the steroids are helping him. Review of Systems Review of Systems: All systems reviewed & are unremarkable except as noted in HPI & below Physical Exam Physical Exam: Constitutional: No acute distress HEENT: EOMI, PERRLA Respiratory system: Decreased air entry bilaterally, no wheeze, no rhonchi, positive crackles bilaterally, right> left CVS: S1-S2 positive, no murmurs or gallops Abdomen: Soft, nontender, nondistended, positive bowel sounds x4 Extremities: +2 pulses bilaterally radialis/ dorsalis pedis, no cyanosis, no edema Neuro: Awake alert oriented x3 Psych: Normal mood and affect G/U: No Woodson Skin: no rashes, warm and dry Lymphatic: no cervical or axillary lymphadenopathy Results & Data Results & Data Vital Signs (Past 12 Hours) Vital Signs Temp Pulse Pulse Resp BP Pulse Ox O2 Del Method 04/12/25 12:23 95 Nasal Cannula 04/12/25 11:28 36.3 C L 66 20 126/66 96 Nasal Cannula 04/12/25 10:22 Nasal Cannula 04/12/25 08:19 36.4 C L 65 20 118/69 95 Nasal Cannula 04/12/25 07:16 68 16 93 Nasal Cannula 04/12/25 07:06 68 04/12/25 04:43 36.6 C 67 20 115/62 92 Room Air, Nasal Cannula O2 Flow Rate 04/12/25 12:23 1 04/12/25 11:28 4 04/12/25 10:22 3 04/12/25 08:19 4 04/12/25 07:16 3 04/12/25 07:06 04/12/25 04:43 4 PG Care Time/CCT Total # of Minutes Spent Total Time Spent with Patient: Total time spent is greater than 50% in coordination of care (as documented) at patient's floor/unit and/or counseling patient: Coding Level of Care Code 47054 SUB INP/OBS CARE 2/35MIN Diagnoses Multifocal pneumonia J18.9 CLL (chronic lymphocytic leukemia) C91.10 Acute hypoxemic respiratory failure J96.01 Enterovirus infection B34.1 Rhinovirus infection B34.8 Hypogammaglobulinemia D80.[address] R93.89 Asthma J45.909
[2025-04-13 07:19] LABS: Hematocrit (blood only) 30.9 % (42.0-52.0); Hemoglobin 10.5 g/dl (14.0-18.0); Mean Corpuscular Hemoglobin 32.3 pg (25.0-34.0); Mean Corpuscular Volume 95.1 fL (80.0-100.0); Platelet Count 246 K/uL (130-400); RDW Standard Deviation 47.9 fL (36.4-46.3); Red Blood Count 3.25 M/uL (4.70-6.10); White Blood Count 20.54 K/ul (4.8-10.8)
[2025-04-13 07:44] LABS: Anion Gap 7.0 (3-11); Blood Urea Nitrogen 42.0 mg/dl (6-23); Calcium 10.0 mg/dl (8.6-10.3); Carbon Dioxide 24.0 mmol/L (21-32); Chloride 108.0 mmol/L (98-107); Creatinine Clr Calc Pharmacy 43.8 ml/min; Glucose 121.0 mg/dl (70-99(Fasting)); Magnesium 2.3 mg/dl (1.7-2.4); Potassium 4.2 mmol/L (3.5-5.1); Sodium 139.0 mmol/L (136-145)
[2025-04-13 07:54] LABS: Immature Granulocytes # (auto) 0.59 K/uL (0.01-0.20); Immature Granulocytes % (auto) 2.9 %; Polychromasia 1+; Smudge Cells Present; Tear Drop Cells 1+
--- NOTE | 2025-04-13 10:14 | Pulmonology Progress Note ---
Date of Service April 13, 2025 Assessment & Plan (1) Multifocal pneumonia: (2) CLL (chronic lymphocytic leukemia): (3) Acute hypoxemic respiratory failure: (4) Enterovirus infection: (5) Rhinovirus infection: (6) Hypogammaglobulinemia: (7) Abnormal chest CT: (8) Asthma: Plan Patient with multifocal pneumonia with probable superimposed bacterial infection on top of viral bronchiolitis. Possibility of TKI induced pneumonitis is difficult to rule out. Will transition to p.o. prednisone 60 mg starting tomorrow. Recommend discontinuation of Calquence for the time being. Would recommend a 2 to 3-week steroid taper. Will hold off bronchoscopy at this point in time since he is improving and his oxygen requirements are also improving. If his symptoms stagnate or he worsens, would recommend a bronchoscopy which can be done even as an outpatient. Recommend a follow-up CT chest in 1 month. I also recommended an ID consult to the hospitalist service given his complex history with prior infections including pseudomonal pneumonia, MAC infection and Achromobacter infection. He does have a history of bronchiectasis related to his IgG deficiency. He should follow-up with his immigration paralegal as an outpatient as well. Recommend following up with ID recommendations. At this time, pulmonary to sign off. Please call with questions or concerns. Will follow-up in the outpatient setting. Thank you for the consult. Admission and Anticipated Discharge Date Admission Date: April 08, 2025 Subjective Patient seen examined. He notes a more productive cough today. Shortness of breath continues to improve. He is saturating in the low 90s on room air. Review of Systems Review of Systems: All systems reviewed & are unremarkable except as noted in HPI & below Physical Exam Physical Exam: Constitutional: No acute distress HEENT: EOMI, PERRLA Respiratory system: Decreased air entry bilaterally, no wheeze, no rhonchi, positive crackles bilaterally, right> left CVS: S1-S2 positive, no murmurs or gallops Abdomen: Soft, nontender, nondistended, positive bowel sounds x4 Extremities: +2 pulses bilaterally radialis/ dorsalis pedis, no cyanosis, no e sanjay Neuro: Awake alert oriented x3 Psych: Normal mood and affect G/U: No [place] Skin: no rashes, warm and dry Lymphatic: no cervical or axillary lymphadenopathy Results & Data Results & Data Vital Signs (Past 12 Hours) Vital Signs Temp Pulse Pulse Resp BP Pulse Ox O2 Del Method 04/13/25 08:09 36.3 C L 68 18 125/66 91 Room Air 04/13/25 07:44 Room Air 04/13/25 07:22 75 18 91 Room Air 04/13/25 03:22 36.6 C 68 16 117/54 L 95 Room Air 04/12/25 22:50 36.3 C L 65 18 131/63 95 Room Air 04/12/25 22:13 67 PG Care Time/CCT Total # of Minutes Spent Total Time Spent with Patient: Total time spent is greater than 50% in coordination of care (as documented) at patient's floor/unit and/or counseling patient: Coding Level of Care Code 62311 SUB INP/OBS CARE 2/35MIN Diagnoses Multifocal pneumonia J18.9 CLL (chronic lymphocytic leukemia) C91.10 Acute hypoxemic respiratory failure J96.01 Enterovirus infection B34.1 Rhinovirus infection B34.8 Hypogammaglobulinemia D80.[address] R93.89 Asthma J45.909
--- NOTE | 2025-04-13 12:19 | Hospitalist Progress Note ---
Date of Service April 13, 2025 Assessment & Plan (1) Acute hypoxemic respiratory failure: (2) Bilateral pneumonia: Plan: Acute hypoxic resp. failure Community-acquired pneumonia Entero/Rhinovirus History of CLL History of IgG deficiency COPD. Asthma Patient is 80-year-old male with PMH asthma/COPD overlap, bronchiectasis and chronic IgG deficiency, history of TB, history of B cell CLL, HLD, GERD, BPH, CKD III, presented to ER on 04/08/25 with c/o increased cough, SOB x several days, fever.. Recent failed outpt treatment with doxycycline and prednisone for respiratory symptoms No recorded fevers during admission Has been on 4L oxygen via [place] since 04/09/25. WBC: 15 (from 12.7 on admission). Admission lactate: WNL and procalcitonin was 1.0 Respiratory bio panel: + entero/rhinovirus CXR: Opacity bilateral lung bases, right greater than left Repeat CXR today: Interval demonstration of bilateral lower zones opacification, more on the right side, with worsening of the left lower lung zone opacity, could be due to infection or edema. Interval obliteration of the right CP angle suggests mild effusion/ reaction. 04/11/25 CT Chest: 1. Extensive bilateral lower lobe, right middle lobe and lingular consolidation suggestive of multifocal pneumonia. A follow-up chest CT in 3 months to ensure resolution is recommended. 2. Mildly enlarged mediastinal and bilateral hilar lymph nodes which have increased in size since prior CT. These may be reactive and can be assessed on follow-up CT. 3. Small right and trace left pleural effusions. blood culture NGTD Initially treated with cefepime, azithromycin on admission and was changed to Zosyn and azithromycin on 04/09/25. Continue Zosyn, azithromycin Sputum culture sputum AFB ordered if patient can produce sputum MRSA swab negative Continue incentive spirometry, flutter valve Pulmonology consulted. Appreciate recommendations of added hypertonic saline neb, Pulmicort and formoterol nebs. Recommended continuing Zosyn, azithromycin Discussed with Pulm who also recommends consulting ID due to hx of MAC and achromobacter cultures for definitive/duration of treatment He is improving significantly Continue IV solumedrol - pulm recommends 2-3 week steroid taper at d/c, possibility of TKI induced pneumonitis difficult to rule out, plan to start PO prednisone 60mg daily tomorrow and taper over 2-[address] in 1 month, Hold Calquence for now. 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 Will be due 4 weeks from this date BPH Continue on finasteride DVT Prophylaxis Heparin SQ Dispo: PT/OT consulted, awaiting ID consult, off oxygen, will do 2 step tomorrow, PT/OT, suspect d/c to home tomorrow Pt was seen and care coordinated with Dr Pace. I spent a total of 44 minutes reviewing notes, outpatient records, labs, medication, coordinating, documenting and providing care for this patient excluding time spent in the performance of separately billed services and excluding time spent by another provider/QHP. Admission and Anticipated Discharge Date Admission Date: April 08, 2025 Supervising Physician Co-Signing Physician Notes Pt was seen and examined by me, care coordinated w/ Skylar Camargo PA-C, pls refer to her note above for further detail. Pt is mproved today, currently on RA. Breath sounds decreased on auscultation, no wheezing. Pulmonary medicine following and switching from iv solumedrol to po prednisone. Pt on broad spectrum abx zosyn + azithromycin. Pulm. recommends to consult w/ ID. Per ID - recommend 7 day abx course and to switch to levaquin on DC. Blood cultx are negative, sputum cultx now pending. MD Sanjeev I spent a total of 15 minutes coordinating, documenting, and providing care for this patient excluding time spend in the performance of separately billed services or time spent by another provider / QHP. Subjective Pt was seen and examined in room 263-1. F/U PNA. He is sitting in bedside chair. He took one walk around [place] yesterday. Denies f/c/s, chest pain, sob at rest, n/v/d. He is moving bowels. Still has cough. He feels he is improving. Is hesitant with hold calquence as last time he got severe body aches from not taking it. Review of Systems Review of Systems: All systems reviewed & are unremarkable except as noted in HPI & below Physical Exam Physical Exam: Gen: Tall, thin, male, NAD, A&O x3 sitting up in bedside chair HEENT: Normocephalic, atraumatic, conjunctivae moist, sclerae anicteric, mucous membranes moist. Lung: CTAB no w/r/r Heart: Regular rate, regular rhythm, no murmurs, rubs, or gallops Abdomen: Soft, NT, ND +BS x 4 Extremities: No edema Skin: Warm, no rash, negative turgor. Results & Data Results & Data Vital Signs (Past 12 Hours) Vital Signs Temp Pulse Resp BP BP Pulse Ox O2 Del Method 04/13/25 11:42 36.3 C L 75 18 120/59 L 94 Room Air 04/13/25 08:09 36.3 C L 68 18 125/66 91 Room Air 04/13/25 07:44 Room Air 04/13/25 07:22 75 18 91 Room Air 04/13/25 03:22 36.6 C 68 16 117/54 L 95 Room Air Laboratory Results 04/13/25 Range/Units 06:57 WBC 20.54 H (4.8-10.8) K/ul RBC 3.25 L (4.70-6.10) M/uL Hgb 10.5 L (14.0-18.0) g/dl Hct 30.9 L (42.0-52.0) % MCV 95.1 (80.0-100.0) fL MCH 32.3 (25.0-34.0) pg MCHC 34.0 (32.0-36.0) g/dL RDW Std Deviation 47.9 H (36.4-46.3) fL RDW Coeff of [place] 13.8 (11.5-14.5) % Plt Count 246 (130-400) K/uL MPV 11.0 (9.4-12.4) fL Immature Gran % (Auto) 2.9 % Neut % (Auto) 25.4 % Lymph % (Auto) 68.2 % Barren % (Auto) 3.3 % Eos % (Auto) 0.0 % Baso % (Auto) 0.2 % Neut # (Auto) 5.20 (1.40-6.50) K/uL Lymph # (Auto) 14.01 H (1.20-3.40) K/uL Barren # (Auto) 0.68 H (0.11-0.59) K/uL Eos # (Auto) 0.01 (0.00-0.50) K/uL Baso # (Auto) 0.05 (0.00-0.20) K/uL Immature Gran # (Auto) 0.59 H (0.01-0.20) K/uL Smudge Cells Present Polychromasia 1+ Tear Drop Cells 1+ Sodium 139 (136-145) mmol/L Potassium 4.2 (3.5-5.1) mmol/L Chloride 108 H (98-107) mmol/L Carbon Dioxide 24 (21-32) mmol/L Anion Gap 7 (3-11) BUN 42 H (6-23) mg/dl Creatinine 1.25 (0.6-1.4) mg/dl Est Cr Clr Drug Dosing 43.8 ml/min eGFR 58.21 BUN/Creatinine Ratio 33.6 H (10-20) Glucose 121 H (70-99(Fasting)) mg/dl Calcium 10.0 (8.6-10.3) mg/dl Phosphorus 4.1 (2.5-4.9) mg/dl Magnesium 2.3 (1.7-2.4) mg/dl I have independently reviewed and interpreted patient's cbc, bmp, mag, phos Medications Administered Current Inpatient Medications Acalabrutinib (Acalabrutinib Maleate 100 Mg Tab) 100 mg PO BID@0800,2000 [facility] Stop: 05/08/25 19:59 Last Admin: 04/12/25 08:39 Dose: 100 mg Acetaminophen (Acetaminophen 325 Mg Tab) 650 mg PO Q4H PRN PRN Reason: Pain or Fever Stop: 05/08/25 16:16 Last Admin: 04/10/25 11:54 Dose: 650 mg Acetylcysteine (Acetylcysteine 20% Inhal Soln 4ml Dispensed By Resp.) 5 ml INH Q12R [facility] Stop: 05/10/25 13:29 Last Admin: 04/13/25 07:13 Dose: 5 ml Budesonide (Budesonide 0.25 Mg/2 Ml Vial (Pulmicort)) 0.25 mg NEB BIDR [facility] Stop: 05/09/25 18:59 Last Admin: 04/13/25 07:12 Dose: 0.25 mg Finasteride (Finasteride 5 Mg Tab) 5 mg PO QAM [facility] Stop: 05/09/25 08:59 Last Admin: 04/13/25 09:31 Dose: 5 mg Fluticasone Propionate (Fluticasone Propionate Na Spr 16 Gm Btl) 2 sprays SOPHIA QAM [facility] Stop: 05/09/25 08:59 Last Admin: 04/13/25 09:33 Dose: 2 sprays Formoterol Fumarate (Formoterol 20 Mcg/2 Ml Vial) 20 mcg NEB BIDR [facility] Stop: 05/09/25 18:59 Last Admin: 04/13/25 07:12 Dose: 20 mcg Guaifenesin (Guaifenesin 600 Mg Tabcr) 1,200 mg PO Q12 [facility] Stop: 05/08/25 20:59 Last Admin: 04/13/25 09:32 Dose: 1,200 mg Heparin Sodium (Porcine) (Heparin Sod 5,000 Unit/0.5 Ml Vial) 5,000 units SQ Q8 [facility] Stop: 05/08/25 21:59 Last Admin: 04/13/25 06:14 Dose: Not Given Promethazine HCl (Phenergan) 6.25 mg in 50.25 mls @ 201 mls/hr IV Q6H PRN PRN Reason: Nausea And Vomiting Stop: 05/08/25 16:16 Piperacillin Sod/Tazobactam Sod (Zosyn) 4.5 gm in 100 mls @ 25 mls/hr IV Q8H [facility]; Protocol Stop: 04/14/25 13:59 Last Infusion: 04/13/25 10:21 Dose: Infused Levalbuterol HCl (Levalbuterol 1.25 Mg/3 Ml Neb) 1.25 mg NEB Q6H PRN PRN Reason: Shortness Of Breath Or Wheezing Stop: 05/08/25 16:16 Last Admin: 04/11/25 20:06 Dose: 1.25 mg Loratadine (Loratadine 10 Mg Tab) 10 mg PO QAM [facility] Stop: 05/09/25 08:59 Last Admin: 04/13/25 09:32 Dose: 10 mg Magnesium Oxide (Magnesium Oxide 400 Mg Tab) [facility]: 05/11/25 08:59 Last Admin: 04/13/25 09:33 Dose: 400 mg Melatonin (Melatonin 3 Mg Tab) 3 mg PO HS PRN PRN Reason: Sleep Stop: 05/08/25 19:52 Last Admin: 04/08/25 21:46 Dose: 3 mg Multivitamins/Minerals (Cerovite Adv Formula Tab) 1 tab PO QAM [facility] Stop: 05/09/25 08:59 Last Admin: 04/13/25 09:33 Dose: 1 tab Areds~Non-Formulary (Patient's Own Med) 1 each PO 0800,1700 [facility] Stop: 05/09/25 16:59 Last Admin: 04/13/25 09:30 Dose: 1 tab Polyethylene Glycol (Polyethylene (Miralax) 17 Gm Pack) 17 gm PO DAILY PRN PRN Reason: Constipation Stop: 05/08/25 16:16 Prednisone (Prednisone 20 Mg Tab) 60 mg PO DAILY [facility] Stop: 05/14/25 08:59 Psyllium Hydrophilic Mucilloid (Psyllium Husk 4gm Packet) 4 gm PO QAM [facility] Stop: 05/09/25 08:59 Last Admin: 04/13/25 09:34 Dose: 4 gm Sodium Chloride (Sodium Chlor 7% 4 Ml Neb) 4 ml NEB BIDR [facility] Stop: 05/09/25 18:59 Last Admin: 04/13/25 07:21 Dose: 4 ml Sodium Chloride (Sodium Chloride 0.65% Na Soln 45 Ml ([place])) 2 sprays NA QID PRN PRN Reason: Nasal Congestion Stop: 05/10/25 10:10
--- NOTE | 2025-04-13 14:42 | Infectious Disease Consult ---
Date of Service April 13, 2025 Telehealth Information I performed this visit using a real-time telehealth connection between my location and the patients location ([facility]). After connecting through interactive tele-video, patient was identified by name and date of and/or wristband check.Patient (or authorized healthcare healthcare sales representative) was informed that this was a telemedicine visit and it was being conducted confidentially over secure lines. My office door was closed and no one else was present in the room with me.Patient (or authorized healthcare healthcare sales representative) provided consent to proceed with the visit, expressed an understanding of privacy and security of the telemedicine visit, and gave permission to have a hospital healthcare sales representative in the room in order to assist with the visit and to conduct portions of the visit, as needed. I informed the patient (or authorized healthcare healthcare sales representative) that I reviewed their record and presented the opportunity for them to ask any questions regarding the visit today. The patient agreed to participate. Assessment & Plan (1) Bacterial pneumonia: (2) Enterovirus infection: (3) Acute hypoxemic respiratory failure: (4) Asthma-COPD overlap syndrome: (5) History of MAC infection: (6) CLL (chronic lymphocytic leukemia): Plan I agree with the primary team on IV piperacillin tazobactam. I will aim for a total duration of 7 days with anticipated end date of 04/15/2025. On discharge, step-down to oral Levaquin 750 mg once daily to complete the course of treatment. Thank you for consulting Infectious Disease. We will sign off for now. History of Present Illness History of Present Illness Mr. Rocha is a 80-year-old man with medical history of asthma/COPD overlap, B- cell CLL and chronic IgG deficiency, history of TB and MAC (treated), and CKD stage III who was admitted to [facility] on 04/08/2025 because of fever, malaise and acute progressive shortness of breath. On presentation, he was afebrile, but was requiring 2 L of oxygen via nasal cannula; the rest of the vitals were within normal limits. Initial workup showed leukocytosis of 1 2.7, negative MRSA screen, RVP panel positive for entero/rhinovirus, and chest x-ray suggestive of bilateral lower lung pneumonia. CT of the chest was further performed which showed extensive bilateral lower lobe, right middle lobe and lingular consolidation suggestive of multifocal pneumonia. During today's encounter, patient mentioned that he has markedly improved since admission and currently not requiring any oxygen. ID team was consulted for further recommendations and to help guide antibiotic treatment. Allergies Allergy/AdvReac Type Severity Reaction Status Date / Time rofecoxib Allergy Intermediate RASH,SWELLING, Verified 03/18/25 14:34 UNSTEADY GAIT/STUMBLING lamotrigine [From Lamictal] AdvReac Mild cannot Verified 03/18/25 14:34 think straight, stumbling and falling. meperidine AdvReac Mild Vomiting Verified 03/18/25 14:34 Home Medications Medication Instructions Recorded Confirmed Type Flutter Valve #1 ea 11/29/21 04/08/25 Rx omega-3 fatty acids 1,000 mg 1,000 mg PO QAM 06/06/22 04/08/25 History capsule fluticasone propionate 50 2 spray intranasal QA 06/27/23 04/08/25 History mcg/actuation nasal spray,suspension (Allergy Relief (fluticasone)) finasteride 5 mg tablet 5 mg PO QA 11/07/23 04/08/25 History fluticasone furoate 200 1 inh inhalation QA 12/05/24 04/08/25 History mcg-vilanterol 25 mcg/dose inhalation powder (Breo Ellipta) L.acidoph-L.rhamn-B.bifidum-B.long 1 tab PO QA 04/08/25 04/08/25 History 12.9 mg (2 billion cell) tabletDR acalabrutinib maleate 100 mg 100 mg PO [facility] 04/08/25 04/08/25 History tablet (Calquence (acalabrutinib maleate)) dextromethorphan-guaifenesin ER 60 1 tab PO [facility] 04/08/25 04/08/25 History mg-1,200 mg tab,extend release,12hr (Mucinex DM) guar gum 1 packet PO QAM 04/08/25 04/08/25 History immune glob,gamm(IgG) 10 %-pro-IgA 40 g IV MONTHLY 04/08/25 04/08/25 History 0 to 50 mcg/mL intravenous solution (Privigen) levalbuterol HCl 1.25 mg/3 mL 1.25 mg inhalation Q6H PRN 04/08/25 04/08/25 History solution for nebulization shortness of breath loratadine 10 mg capsule 10 mg PO QAM 04/08/25 04/08/25 History melatonin 10 mg tablet 10 mg PO UD 04/08/25 04/08/25 History wbntoeousnux-nmz-nnnis acid-vit 1 tab PO QAM 04/08/25 04/08/25 History K-lycop 400 mcg-20 mcg-370 mcg tablet (Men's 50 Plus Multivitamin) sodium chloride 0.65 % nasal spray 1 spray intranasal UD PRN 04/08/25 04/08/25 History aerosol (Saline Nasal) Congestion vit A 7,160 unit-C 113 mg-E 100 1 tab PO [facility] 04/08/25 04/08/25 History wqvv-xgwk-lnkpec tablet,delayed rel. Patient History Medical History Chronic cough Sensorineural hearing loss (SNHL) of both ears Chronic maxillary sinusitis History of pneumonia d/c [facility] [place] 12/07/24 Nausea and vomiting after administration of anesthetic agent after inguinal hernia repair, years ago; no issues since then Acute hypoxemic respiratory failure hx 2022, "with severe infection" History of anemia Vasovagal reaction hx, recently when in ENT dr's office ~12/2024, "occurs usually with sudden severe pain" History of epilepsy last seizure ~2019 History of dyspnea "at times" CLL (chronic lymphocytic leukemia) currently on calquence 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, hospitalized for 3 months, abx "for years" Asthma inh and neb BPH (benign prostatic hyperplasia) Surgical History S/p bilateral myringotomy with tube placement Hx of colonoscopy Hx of right inguinal hernia repair History of prostate surgery [facility] surgery History of tonsillectomy and adenoidectomy H/O vasectomy [place] teeth removed S/P TURP 2019 History of bronchoscopy (2021) [facility] [place] Social History Smoking Status: Never smoker Second Hand Exposure: No; Do You Dip or Chew Tobacco: No; Hx Alcohol Use: No Hx Substance Use: No Preferred Language: Occitan Communication Ability: Effective Dental Technician Apprentice Required: No Beliefs That Will Affect Care: None Current Living Situation: Spouse Current Living Situation Comment: 2 story home Feels Safe at Home: Yes Safety Concerns: Feels Safe At This Time Assistive Devices: None Review of Systems Negative except for what was mentioned in the H&P. Physical Exam Could not be performed given that the encounter was conducted via TeleMed. Results & Data Vital Signs (Past 12 Hours) Vital Signs Temp Pulse Resp BP BP Pulse Ox O2 Del Method 04/13/25 11:42 36.3 C L 75 18 120/59 L 94 Room Air 04/13/25 08:09 36.3 C L 68 18 125/66 91 Room Air 04/13/25 07:44 Room Air 04/13/25 07:22 75 18 91 Room Air 04/13/25 03:22 36.6 C 68 16 117/54 L 95 Room Air Laboratory Results Microbiology: 04/08: 2 sets of blood culture negative to date 04/12: Sputum culture with moderate normal flora04/13: Bacterial and AFB sputum culture pending Diagnostic Findings CT chest performed on 04/11: 1. Extensive bilateral lower lobe, right middle lobe and lingular consolidation suggestive of multifocal pneumonia. A follow-up chest CT in 3 months to ensure resolution is recommended. 2. Mildly enlarged mediastinal and bilateral hilar lymph nodes which have increased in size since prior CT. These may be reactive and can be assessed on follow-up CT. 3. Small right and trace left pleural effusions.
[2025-04-14 08:28] LABS: Hematocrit (blood only) 35.5 % (42.0-52.0); Hemoglobin 11.8 g/dl (14.0-18.0); Mean Corpuscular Hemoglobin 32.4 pg (25.0-34.0); Mean Corpuscular Volume 97.5 fL (80.0-100.0); Platelet Count 279 K/uL (130-400); RDW Standard Deviation 50.4 fL (36.4-46.3); Red Blood Count 3.64 M/uL (4.70-6.10); White Blood Count 12.84 K/ul (4.8-10.8)
[2025-04-14 08:43] LABS: Anion Gap 7.0 (3-11); Blood Urea Nitrogen 39.0 mg/dl (6-23); Calcium 9.8 mg/dl (8.6-10.3); Carbon Dioxide 28.0 mmol/L (21-32); Chloride 105.0 mmol/L (98-107); Creatinine Clr Calc Pharmacy 42.9 ml/min; Glucose 84.0 mg/dl (70-99(Fasting)); Magnesium 2.2 mg/dl (1.7-2.4); Potassium 3.7 mmol/L (3.5-5.1); Sodium 140.0 mmol/L (136-145)
[2025-04-14] MEDS: predniSONE 20 MG TAB PO SCH (08:47)
[2025-04-14 09:19] LABS: Immature Granulocytes # (auto) 0.35 K/uL (0.01-0.20); Immature Granulocytes % (auto) 2.7 %; Polychromasia 1+; Smudge Cells Present; Tear Drop Cells 1+
--- NOTE | 2025-04-14 14:30 | Hospitalist Progress Note ---
Date of Service April 14, 2025 Assessment & Plan (1) Acute hypoxemic respiratory failure: (2) Bilateral pneumonia: Plan: Acute hypoxic resp. failure Community-acquired pneumonia Entero/Rhinovirus History of CLL History of IgG deficiency COPD. Asthma Patient is 80-year-old male with PMH asthma/COPD overlap, bronchiectasis and chronic IgG deficiency, history of TB, history of B cell CLL, HLD, GERD, BPH, CKD III, presented to ER on 04/08/25 with c/o increased cough, SOB x several days, fever.. Recent failed outpt treatment with doxycycline and prednisone for respiratory symptoms No recorded fevers during admission Has been on 4L oxygen via [place] since 04/09/25. WBC: 15 (from 12.7 on admission). Admission lactate: WNL and procalcitonin was 1.0 Respiratory bio panel: + entero/rhinovirus CXR: Opacity bilateral lung bases, right greater than left Repeat CXR today: Interval demonstration of bilateral lower zones opacification, more on the right side, with worsening of the left lower lung zone opacity, could be due to infection or edema. Interval obliteration of the right CP angle suggests mild effusion/ reaction. 04/11/25 CT Chest: 1. Extensive bilateral lower lobe, right middle lobe and lingular consolidation suggestive of multifocal pneumonia. A follow-up chest CT in 3 months to ensure resolution is recommended. 2. Mildly enlarged mediastinal and bilateral hilar lymph nodes which have increased in size since prior CT. These may be reactive and can be assessed on follow-up CT. 3. Small right and trace left pleural effusions. blood culture NGTD Initially treated with cefepime, azithromycin on admission and was changed to Zosyn and azithromycin on 04/09/25. Continue Zosyn, azithromycin Sputum culture sputum AFB ordered if patient can produce sputum MRSA swab negative Continue incentive spirometry, flutter valve Pulmonology consulted. Appreciate recommendations of added hypertonic saline neb, Pulmicort and formoterol nebs. Discussed with Pulm who also recommends consulting ID due to hx of MAC and achromobacter cultures for definitive/duration of treatment ID recommends transitioning to oral levaquin to complete course through 04/15. IV solumedrol transitioned to oral prednisone 60mg daily - pulm recommends 2-3 week steroid taper at d/c, possibility of TKI induced pneumonitis difficult to rule out, plan to start PO prednisone 60mg daily tomorrow and taper over 2-[address] in 1 month, Hold Calquence for now. This was discussed with heme/onc Dr Pierre, also recommend f/u with entry examiner as outpt 04/14 - anticipated pt be discharged home; however he was feeling chilled and more SOB, 2 step O2 study revealed 3L requirement with exertion (script written) - Discussed with pulm who recommended repeat CXR, procal, bnp and updated echo - consider d/c tomorrow if feeling better with home o2, pt is setup to see Lakshmi as an outpt - He can resume calquence after finishing antibiotic History of CLL Chronic IgG deficiency hold Calquence for now per pulm, ok to resume once antibiotics complete IVIG as outpatient every 28 days, last dose was 03/31/25. Will be due 4 weeks from this date BPH Continue on finasteride DVT Prophylaxis Heparin SQ Dispo: anticipated d/c home today, will hold discharge due to pt c/o chills and slight increased o2 requirement Pt was seen and care coordinated with Dr Real I spent a total of 44 minutes reviewing notes, outpatient records, labs, medication, coordinating, documenting and providing care for this patient excluding time spent in the performance of separately billed services and excluding time spent by another provider/QHP. Admission and Anticipated Discharge Date Admission Date: April 08, 2025 Supervising Physician Co-Signing Physician Notes Patient is seen and examined at bedside. Subjectively feels cough, dyspnea on exertion about same as yesterday. Had 2 step earlier today. Also reports having transient chills. No other complaints today. Discussed with patient's at bedside Physical Exam: Vitals signs as noted above General Appearance: Thin, frail, chronically ill-appearing, no apparent distress Head: normocephalic, Atraumatic Eyes: normal inspection, EOMI Neck: supple, Trachea midline Respiratory/Chest: Decreased breath sounds, CTA, No accessory muscle use Cardiovascular: S1, S2, No murmur Abdomen/GI:Soft, Non tender, Bowel sounds present Extremities/Musculoskeletal:normal inspection, no edema Neurologic/Psych:AAOX3, grossly no focal neurological deficits Skin: normal color, warm Acute respiratory failure with hypoxia Interval rhinovirus infection Community-acquired pneumonia Immunocompromise state due to history of CLL on immunotherapy COPD/asthma Will complete antibiotic course tomorrow IV Solu-Medrol transition to prednisone tapering course Appreciate pulmonology input 2 step: Needs supplemental oxygen with activity Scheduled to follow-up with pulmonology as outpatient Pro-Aydin, BNP, echo pending Chest x-ray today showed improved bilateral opacities I personally interviewed and examined the patient at bedside. I have reviewed the advanced practitioner's documentation on the date of service referred in note and agree with plan. Patient's care is coordinated with Adele Sanon. Please refer to the documentation above for details of patient's presentation and for discussion of other issues. I spent a total [id number] coordinating, documenting, and providing care for this patient excluding time spent in the performance of separately billed services or time spent by another provider/QHP. Subjective Pt was seen and examined in room 263-1. F/U PNA. He is not feeling as well today. He did a 2 step O2 study that showed he was desaturating while walking. He was requiring 3L with Oxygen. He still has a wet cough but feels improved. Denies f/c/s, chest pain, sob, n/v. Review of Systems Review of Systems: All systems reviewed & are unremarkable except as noted in HPI & below Physical Exam Physical Exam: Gen: Tall, thin, male, NAD, A&O x3 sitting up in bedside chair HEENT: Normocephalic, atraumatic, conjunctivae moist, sclerae anicteric, mucous membranes moist. Lung: CTAB no w/r/r Heart: Regular rate, regular rhythm, no murmurs, rubs, or gallops Abdomen: Soft, NT, ND +BS x 4 Extremities: No edema Skin: Warm, no rash, negative turgor. Results & Data Results & Data Vital Signs (Past 12 Hours) Vital Signs Temp Pulse Pulse Pulse Pulse Pulse Pulse 04/14/25 08:40 04/14/25 08:25 99 H 97 H 97 H 103 H 95 H 04/14/25 07:58 36.7 C 84 04/14/25 07:21 101 H 04/14/25 07:10 04/14/25 04:00 36.7 C 69 Resp Resp Resp Resp Resp Resp BP 04/14/25 08:40 04/14/25 08:25 19 19 18 20 17 04/14/25 07:58 16 116/64 04/14/25 07:21 17 04/14/25 07:10 04/14/25 04:00 18 115/63 Pulse Ox Pulse Ox Pulse Ox Pulse Ox Pulse Ox Pulse Ox Pulse Ox 04/14/25 08:40 04/14/25 08:25 86 L 88 L 90 84 L 93 04/14/25 07:58 91 04/14/25 07:21 90 04/14/25 07:10 90 04/14/25 04:00 94 O2 Del Method O2 Del Method O2 Flow Rate O2 Flow Rate O2 Flow Rate O2 Flow Rate 04/14/25 08:40 Room Air, Nasal Cannula 3 04/14/25 08:25 1 2 3 04/14/25 07:58 Room Air 04/14/25 07:21 Room Air 04/14/25 07:10 Room Air 04/14/25 04:00 Room Air Laboratory Results I have independently reviewed and interpreted patient's cbc, bmp Medications Administered Current Inpatient Medications Acalabrutinib (Acalabrutinib Maleate 100 Mg Tab) 100 mg PO BID@0800,1999 [facility] Stop: 05/08/25 19:59 Last Admin: 04/12/25 08:39 Dose: 100 mg Acetaminophen (Acetaminophen 325 Mg Tab) 650 mg PO Q4H PRN PRN Reason: Pain or Fever Stop: 05/08/25 16:16 Last Admin: 04/10/25 11:54 Dose: 650 mg Acetylcysteine (Acetylcysteine 20% Inhal Soln 4ml Dispensed By Resp.) 5 ml INH Q12R [facility] Stop: 05/10/25 13:29 Last Admin: 04/14/25 07:19 Dose: 5 ml Budesonide (Budesonide 0.25 Mg/2 Ml Vial (Pulmicort)) 0.25 mg NEB BIDR [facility] Stop: 05/09/25 18:59 Last Admin: 04/14/25 07:19 Dose: 0.25 mg Finasteride (Finasteride 5 Mg Tab) 5 mg PO QAM [facility] Stop: 05/09/25 08:59 Last Admin: 04/14/25 08:47 Dose: 5 mg Fluticasone Propionate (Fluticasone Propionate Na Spr 16 Gm Btl) 2 sprays SOPHIA QAM [facility] Stop: 05/09/25 08:59 Last Admin: 04/14/25 08:47 Dose: 2 sprays Formoterol Fumarate (Formoterol 20 Mcg/2 Ml Vial) 20 mcg NEB BIDR [facility] Stop: 05/09/25 18:59 Last Admin: 04/14/25 07:19 Dose: 20 mcg Guaifenesin (Guaifenesin 600 Mg Tabcr) 1,200 mg PO Q12 [facility] Stop: 05/08/25 20:59 Last Admin: 04/14/25 08:46 Dose: 1,200 mg Heparin Sodium (Porcine) (Heparin Sod 5,000 Unit/0.5 Ml Vial) 5,000 units SQ Q8 [facility] Stop: 05/08/25 21:59 Last Admin: 04/14/25 13:12 Dose: Not Given Promethazine HCl (Phenergan) 6.25 mg in 50.25 mls @ 201 mls/hr IV Q6H PRN PRN Reason: Nausea And Vomiting Stop: 05/08/25 16:16 Levalbuterol HCl (Levalbuterol 1.25 Mg/3 Ml Neb) 1.25 mg NEB Q6H PRN PRN Reason: Shortness Of Breath Or Wheezing Stop: 05/08/25 16:16 Last Admin: 04/11/25 20:06 Dose: 1.25 mg Levofloxacin (Levofloxacin 750 Mg Tab) 750 mg PO DAILY@1100 [facility]; Protocol Stop: 04/15/25 11:01 Last Admin: 04/14/25 11:18 Dose: 750 mg Loratadine (Loratadine 10 Mg Tab) [facility] [place] Stop: 05/09/25 08:59 Last Admin: 04/14/25 08:47 Dose: 10 mg Magnesium Oxide (Magnesium Oxide 400 Mg Tab) 400 mg PO QAM [facility] Stop: 05/11/25 08:59 Last Admin: 04/14/25 08:47 Dose: 400 mg Melatonin (Melatonin 3 Mg Tab) 3 mg PO HS PRN PRN Reason: Sleep Stop: 05/08/25 19:52 Last Admin: 04/08/25 21:46 Dose: 3 mg Multivitamins/Minerals (Cerovite Adv Formula Tab) 1 tab PO QAM [facility] Stop: 05/09/25 08:59 Last Admin: 04/14/25 08:46 Dose: 1 tab Areds~Non-Formulary (Patient's Own Med) 1 each PO 0800,1700 [facility] Stop: 05/09/25 16:59 Last Admin: 04/14/25 08:46 Dose: 1 tab Polyethylene Glycol (Polyethylene (Miralax) 17 Gm Pack) 17 gm PO DAILY PRN PRN Reason: Constipation Stop: 05/08/25 16:16 Prednisone (Prednisone 20 Mg Tab) 60 mg PO DAILY [facility] Stop: 05/14/25 08:59 Last Admin: 04/14/25 08:47 Dose: 60 mg Psyllium Hydrophilic Mucilloid (Psyllium Husk 4gm Packet) 4 gm PO QAM [facility] Stop: 05/09/25 08:59 Last Admin: 04/14/25 08:47 Dose: 4 gm Sodium Chloride (Sodium Chlor 7% 4 Ml Neb) 4 ml NEB BIDR [facility] Stop: 05/09/25 18:59 Last Admin: 04/14/25 07:20 Dose: 4 ml Sodium Chloride (Sodium Chloride 0.65% Na Soln 45 Ml (Mylo)) 2 sprays NA QID PRN PRN Reason: Nasal Congestion Stop: 05/10/25 10:10
--- NOTE | 2025-04-14 15:04 | XRay Report ---
XR chest 2V PA/lateral CLINICAL HISTORY: worsening O2 requirement COMPARISON STUDY: Chest CT and chest radiograph April 11, 2025. FINDINGS: Lung volumes are normal. There are trace bilateral pleural effusions. Left lower lung opaci ty has mildly improved. Right basilar opacity has slightly improved. Right midlung opacity has slight ly increased. Overall, the findings have slightly improved since prior exam. There is no evidence for pulmonary edema. Cardiomediastinal silhouette is stable. IMPRESSION: 1. Bibasilar opacities suggestive of pneumonia, mildly improved since prior exam. 2. Trace bilateral pleural effusions. ACT 112: Negative or not required by law. Electronically signed by: Carmelo Bowie M.D. 04/14/2025 3:03 PM
[2025-04-14 23:39] VITALS: RESP 20; TEMP 98.2
[2025-04-15 07:56] VITALS: PULSE 70
--- NOTE | 2025-04-15 09:25 | Pulmonology Progress Note ---
Date of Service April 15, 2025 Assessment & Plan (1) Multifocal pneumonia: (2) CLL (chronic lymphocytic leukemia): (3) Acute hypoxemic respiratory failure: (4) Enterovirus infection: (5) Rhinovirus infection: (6) Hypogammaglobulinemia: (7) Abnormal chest CT: (8) Asthma: Plan Patient with multifocal pneumonia with probable superimposed bacterial infection on top of viral bronchiolitis. Possibility of TKI induced pneumonitis is difficult to rule out. Recommend discontinuation of Calquence for the time being and consulting with the patient's oncologist. Would recommend a 2 to 3-week steroid taper. Recommend a follow-up CT chest in 1 month. Echo and BNP unremarkable. Pro-Aydin improving. Follow ID recs regarding antibiotics. Recommend follow-up with his outpatient base manager and light rail operator. Patient stable for discharge from a pulmonary perspective. Will likely need supplemental oxygen upon discharge. Admission and Anticipated Discharge Date Admission Date: April 08, 2025 Subjective Patient feeling good today with mild oxygen requirements via nasal cannula. No chest pain or shortness of breath. Occasional productive cough. Review of Systems Review of Systems: All systems reviewed & are unremarkable except as noted in HPI & below Physical Exam Physical Exam: Constitutional: No acute distress HEENT: EOMI, PERRLA Respiratory system: Decreased air entry bilaterally, no wheeze, no rhonchi, positive crackles bilaterally, right> left CVS: S1-S2 positive, no murmurs or gallops Abdomen: Soft, nontender, nondistended, positive bowel sounds x4 Extremities: +2 pulses bilaterally radialis/ dorsalis pedis, no cyanosis, no edema Neuro: Awake alert oriented x3 Psych: Normal mood and affect G/U: No [place] Skin: no rashes, warm and dry Lymphatic: no cervical or axillary lymphadenopathy Results & Data Results & Data Vital Signs (Past 12 Hours) Vital Signs Temp Pulse Resp BP Pulse Ox O2 Del Method O2 Flow Rate 04/15/25 07:55 36.8 C 70 20 123/53 L 92 Nasal Cannula 2 04/15/25 07:29 76 20 93 Nasal Cannula 3 04/14/25 23:38 36.8 C 64 20 120/67 96 Nasal Cannula 3 PG Care Time/CCT Total # of Minutes Spent Total Time Spent with Patient: Total time spent is greater than 50% in coordination of care (as documented) at patient's floor/unit and/or counseling patient: Coding Level of Care Code 50721 SUB INP/OBS CARE 235MIN Diagnoses Multifocal pneumonia J18.9 CLL (chronic lymphocytic leukemia) C91.10 Acute hypoxemic respiratory failure J96.01 Enterovirus infection B34.1 Rhinovirus infection B34.8 Hypogammaglobulinemia D80.[address] R93.89 Asthma J45.909
[2025-04-15 12:07] VITALS: O2SAT 92
[2025-04-15 14:33] VITALS: BP 125/66
--- NOTE | 2025-04-15 15:31 | Discharge Summary ---
Discharge Summary Date of Service April 15, 2025 Principal Dx & Hospital Course #1 = Principal Diagnosis (1) Acute hypoxemic respiratory failure: (2) Bilateral pneumonia: Acute hypoxic respiratory failure Community-acquired pneumonia Entero/Rhinovirus History of CLL History of IgG deficiency COPD/ Asthma Patient is 80-year-old male with PMH asthma/COPD overlap, bronchiectasis and chronic IgG deficiency, history of TB, history of B cell CLL, HLD, GERD, BPH, CKD III, presented to ER on 04/08/25 with c/o increased cough, SOB x several days, fever.. Recent failed outpt treatment with doxycycline and prednisone for respiratory symptoms. No recorded fevers during admission Initially required 4L oxygen via NC WBC: 15 (from 12.7 on admission). Admission lactate: WNL and procalcitonin was 1.0 Respiratory bio panel: + entero/rhinovirus CXR: Opacity bilateral lung bases, right greater than left Repeat CXR today: Interval demonstration of bilateral lower zones opacification, more on the right side, with worsening of the left lower lung zone opacity, could be due to infection or edema. Interval obliteration of the right CP angle suggests mild effusion/ reaction. 04/11/25 CT Chest: 1. Extensive bilateral lower lobe, right middle lobe and lingular consolidation suggestive of multifocal pneumonia. A follow-up chest CT in 3 months to ensure resolution is recommended. 2. Mildly enlarged mediastinal and bilateral hilar lymph nodes which have increased in size since prior CT. These may be reactive and can be assessed on follow-up CT. 3. Small right and trace left pleural effusions. Initially treated with cefepime, azithromycin on admission and was changed to Zosyn and azithromycin on 04/09/25 MRSA swab negative Continue incentive spirometry, flutter valve Blood cultures negative to date Pulmonology consulted and added hypertonic saline neb, Pulmicort and formoterol nebs while admitted Recommends consulting ID due to hx of MAC and achromobacter cultures for definitive/duration of treatment - ID recommends transitioning to oral Levaquin to complete abx course (EOT 04/15) Transitioned steroids to prednisone 60mg daily - pulm recommends 2-3 week steroid taper at d/c, possibility of TKI induced pneumonitis difficult to rule out, has follow up with Dr. Martins 04/[address] in 1 month, also recommends f/u with metal bonding helper as outpatient 2 step O2 study revealed 3L requirement with exertion Can resume Calquence after finishing antibiotic, per Dr. Pierre History of CLL Chronic IgG deficiency IVIG as outpatient every 28 days, last dose was 03/31/25. Will be due 4 weeks from this date BPH Continue on finasteride Discharging home on prolonged prednisone taper, PCP and pulm follow up next week as well as onc follow-up on 04/29. Repeat CT chest in 1 month, continue 3L NC O2 with exertion. Care coordinated with Dr. Real. Notes For Next Care Provider 21 day prednisone taper, PCP and pulm follow up next week as well as onc follow- up on 04/29. Repeat CT chest in 1 month, continue 3L NC O2 with exertion. Medication Changes From Visit prednisone taper Admission HPI Per Admitting Provider Patient is 80-year-old male with PMH asthma/COPD overlap, bronchiectasis and chronic IgG deficiency, history of TB, history of B cell CLL, HLD, GERD, BPH, CKD III, presented to ER with c/o cough, SOB. Per inpatient chart review hospitalization 12/05/2024-12/07/2024 for pneumonia, + entero-/rhinovirus treated with Zosyn and azithromycin and discharged on cefdinir. Patient states March 2025 had respiratory symptoms. Per outpatient chart review treated with doxycycline on 03/09/2025 and prednisone 03/17/2025 for respiratory infection. Patient states his symptoms improved but never fully resolved. The past several days with increased nasal congestion, clear rhinorrhea and unable to breathe through his nose. States post nasal drip. States has cough but feels cough is post nasal drip and expels clear color phlegm. Past several days with increased SOB. States chest feels "heavy like can't breathe". Feels having some lightheaded when up walking around this week. Patient states yesterday had fever 100F. Past several days with decreased appetite. Denies HINES, syncope, N/V/D/C, syncope, vision changes, neck pain, palpitations, hemoptysis, choking, abdominal pain, paresthesias, weakness, extremity edema, rashes, urinary symptoms. Outpatient chart review: 01/07/25 CT chest without contrast with Residual patchy groundglass opacities and linear scarring in both lungs appear similar to prior. Previously described nodules in the posterior RLL and LLL are less pronounced on this study and likely represented postinfectious/inflammatory changes on the prior study. Few scattered punctate nodules, likely granulomas appear similar to prior. Admission Exam Per Admitting Provider General: no acute distress sitting in bed on 1L O2 via NC, ill appearing, WDWN Head: normocephalic, atraumatic Eyes: conjunctiva non-injected, anicteric ENT: normal inspection external ears, nose, mucous membranes moist Neck: supple, trachea midline Lungs: no respiratory distress sitting in bed on 1L O2 via NC with sat 92%, +noted dyspnea with speaking in sentences, +rales greater at right base than left, no rales noted CV: RRR, no murmur, no pretibial edema Abd: normal BS, soft, non-tender Ext: no cyanosis, no calf tenderness Neuro: A&O x 3, no focal deficits noted, normal affect Skin: warm, dry Discharge Exam Gen: WD/WN, NAD, sitting up in bed, frail appearing, A&Ox3 HEENT: Normocephalic, atraumatic Lung: Decreased breath sounds bilaterally, no wheezing Heart: Regular rate, regular rhythm Abdomen: Soft, NT, ND +BS x 4 Extremities: no edema Skin: Warm, no rash Updated Medication List Medication Instructions Recorded Confirmed Type Flutter Valve #1 ea 11/29/21 04/08/25 Rx omega-3 fatty acids 1,000 mg 1,000 mg PO QAM 06/06/22 04/08/25 History capsule fluticasone propionate 50 2 spray intranasal QAM 06/27/23 04/08/25 History mcg/actuation nasal spray,suspension (Allergy Relief (fluticasone)) finasteride 5 mg tablet 5 mg PO QAM 11/07/23 04/08/25 History fluticasone furoate 200 1 inh inhalation QA 12/05/24 04/08/25 History mcg-vilanterol 25 mcg/dose inhalation powder (Breo Ellipta) L.acidoph-L.rhamn-B.bifidum-B.long 1 tab PO QAM 04/08/25 04/08/25 History 12.9 mg (2 billion cell) DR renae acalabrutinib maleate 100 mg 100 mg PO [facility] 04/08/25 04/08/25 History tablet (Calquence (acalabrutinib maleate)) dextromethorphan-guaifenesin ER 60 1 tab PO [facility] 04/08/25 04/08/25 History mg-1,200 mg tab,extend release,12hr (Mucinex DM) guar gum 1 packet PO QA 04/08/25 04/08/25 History immune glob,gamm(IgG) 10 %-pro-IgA 40 g IV MONTHLY 04/08/25 04/08/25 History 0 to 50 mcg/mL intravenous solution (Privigen) levalbuterol HCl 1.25 mg/3 mL 1.25 mg inhalation Q6H PRN 04/08/25 04/08/25 History solution for nebulization shortness of breath loratadine 10 mg capsule 10 mg PO QAM 04/08/25 04/08/25 History melatonin 10 mg tablet 10 mg PO UD 04/08/25 04/08/25 History prgqwlyyjwoc-zup-nfhqu acid-vit 1 tab PO QA 04/08/25 04/08/25 History K-lycop 400 mcg-20 mcg-370 mcg tablet (Men's 50 Plus Multivitamin) sodium chloride 0.65 % nasal spray 1 spray intranasal UD PRN 04/08/25 04/08/25 History aerosol (Saline Nasal) Congestion vit A 7,160 unit-C 113 mg-E 100 1 tab PO [facility] 04/08/25 04/08/25 History pbtd-mhoq-jeyabr tablet,delayed rel. prednisone 10 mg tablet 10 mg PO DIRECTED #54 tabs 04/15/25 Rx Hospital Stay Data Consultations 04/08/25 14:27 ED Decision to Admit Stat 04/09/25 08:29 Consult Pulmonology Routine 04/12/25 12:32 Consult Infectious Diseases Routine Diagnostic Imagining Performed 04/11/25 10:24 CT chest diagnostic wo con Urgent Pending Results Patient Have Any Pending Studies at Discharge: No Discharge Instructions Given to Patient (Per Discharging Provider) MEDICATION CHANGES: -Continue prednisone taper at discharge: Start with 60mg (6 tabs) x 3 days (04/16-) Then decrease to 50mg (5 tabs) x 3 days (04/19-) Decrease to 40mg (4 tabs) x 3 days (04/22-) Decrease to 20mg (2 tabs) x 3 days (04/25-) Decreased to 10mg (1 tab) x 3 days (04/28-) -Plan to resume Calquence tomorrow, since antibiotics completed today, per Dr. Pierre PENDING TEST RESULTS: None RECOMMENDATIONS FOR FOLLOW-UP: Follow up with PCP and pulmonology as scheduled next week. Follow up with Dr. Pierre (oncology) for further recommendations of treatment regimen. Recommend a follow-up CT chest in 1 month. Continue wearing oxygen 3L NC with exertion. Continue medication regimen as scheduled aside from changes noted above. OTHER INSTRUCTIONS: Seek medical attention if you have: * temperature above 101 * chest pain or trouble breathing * abdominal pain, nausea, vomiting * diarrhea, dark stools or bloody stools * any unanswered questions or concerns Call 911 if symptoms are severe. Please take good care of yourself. Call if you have any questions or problems. You can reach a [facility] hospitalist on duty at [facility] 24 hours a day by calling [phone]. Total Time Total Time Spent Total Time Spent (In Minutes): 45 Supervising Physician Co-Signing Physician Notes Patient is seen and examined on day of discharge. Patient improved clinically and his respiratory symptoms much improved. Discussed with tank cooper on day of discharge recommends stable for discharge and recommends to follow-up with pulmonary as outpatient. Advised patient to get repeat CT in 1 month and follow-up with pulmonology. Advised to use supplemental oxygen with activity. Patient completed antibiotic course. I personally interviewed and examined the patient at bedside. I have reviewed the advanced practitioner's documentation on the date of service referred in note and agree with plan. Patient's care is coordinated with Angela Anthony PA-C. Please refer to the documentation above for details of patient's presentation and for discussion of other issues. I spent a total [id number] coordinating, documenting, and providing care for this patient excluding time spent in the performance of separately billed services or time spent by another provider/QHP.
== END 2025-04-15 15:52 | disposition home or self-care (01) | DRG 193 ==
LOC: ED 11:19 → SUATTDRO 14:56 → 2W 14:56

== ENCOUNTER 2025-05-01 17:57 | Inpatient (IN) ==
--- NOTE | 2025-05-01 18:19 | Emergency Department Note ---
Impression & Plan Dyspnea, Anemia, Leukocytosis, Leukemoid reaction, Hypogammaglobulinemia ED Provider Note NAME: KEM VERGARA AGE: 80 SEX: M : 1945 ARRIVES VIA: Walk-In INFORMANT: Patient, ED PROVIDER(S): Gary Vera DO CHIEF COMPLAINT: SOB HPI: This is a 80-year-old male with the PMHx of CLL, COPD/asthma, Bronchiectasis, history of Mycobacterium AVM, hypoalbuminemia, and ongoing dyspnea in the setting of recent admission for bilateral pneumonia presenting to [facility] for further evaluation of SOB. Patient is accompanied by his who provide additional history. The patient was seen by me in the emergency department overnight. He had no acute findings on workup. [place] better and returned home. Today he continued to have severe fatigue and weakness. Continues to have mild shortness of breath requiring further use of low-flow nasal cannula. He reports that he discussed further with pulmonology. Dr. Martins recommends bronchoscopy as an inpatient tomorrow.. They deny fever or chills. Some congestion and nonproductive cough. Denies chest pain or palpitations They deny abdominal pain, nausea and vomiting. No urinary complaints. No recent changes in bowel movements. Patient denies recent changes in medications or OTC supplements. Patient offers no other complaints, today. ADDITIONAL HISTORY OBTAINED: Per HPI Chronic Medical/Social Conditions Affecting Care: Per HPI PAST MEDICAL HISTORY: See Below PAST SURGICAL HISTORY: See Below FAMILY HISTORY: See Below SOCIAL HISTORY: See Below HOME MEDICATIONS: See Below ALLERGIES: See Below VITALS: See Below PHYSICAL EXAMINATION: GENERAL: Sitting up in bed, alert, well appearing, well nourished, no distress, non-toxic EYE EXAM: normal conjunctiva. PERRL and EOM's grossly intact. OROPHARYNX: no exudate, no erythema, lips, buccal mucosa, and tongue normal and mucous membranes are moist NECK: supple, no nuchal rigidity, no adenopathy, non-tender LUNGS: Clear to auscultation. Normal chest wall mechanics HEART: no murmurs, regular rate, regular rhythm ABDOMEN: abdomen soft, non-tender, normo-active bowel sounds, no masses, no rebound or guarding. BACK: Back is symmetrical on inspection and there is no deformity, no midline tenderness, no CVA tenderness. SKIN: no rashes and no bruising UPPER EXTREMITIES: upper extremities are grossly normal. LOWER EXTREMITIES: No pitting edema. NEURO EXAM: Normal sensorium, cranial nerves II-XII grossly intact, normal speech, no gross weakness of arms, no gross weakness of legs. MEDICAL DECISION MAKING: Differential diagnoses includes but not limited to ACS, unstable angina, dysrhythmia, PNA, hypervolemia/pulmonary edema, CHF exacerbation, COPD exacerbation, PE, pneumothorax, pericardial effusion, cardiac tamponade, anxiety/psychogenic, viral URI In summary, this is a 80 year old male who presented with ongoing shortness of breath, fatigue and weakness. Differential as above. Nursing notes and pertinent past medical records reviewed. Vital signs reviewed and the patient is afebrile and hemodynamically stable. History and presentation revealed known chronic lung disease. Does have low-flow nasal cannula available to him at home. Continues to have worsening dyspnea, fatigue and weakness. 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 Physical examination revealed as above. As a result of my initial evaluation, we will repeat the patient's basic lab work today and plan to admit to the hospitalist service at the direction of his oil heater installer. Diagnostics interpreted by me include EKG and cardiac monitoring as listed below: -Cardiac Monitoring: An order was placed for continuous cardiac monitoring. The monitor shows a rate of 70-80s with regular rhythm. -ECG: EKG independently interpreted by me reveals normal sinus rhythm at a ventricular rate of 70 bpm. There is sinus arrhythmia present. No significant ST segment changes stress STEMI. Intervals within normal limits. Patient completed laboratory studies and imaging. Results independently interpreted by me are leukocytosis that is mildly worsened from prior. Stable anemia. No electrolyte derangements. Slight increased BUN:Cr. Suspect mild dehydration. The patient was managed with IVFR and close observation. No respiratory distress noted. Do not feel that further respiratory support or hygiene is needed at this time. I did independently review the patient's chest x-ray that appears similar to prior. Resolving pneumonia. Some scar tissue present. No pneumothorax or pleural effusion. Given recommendations by pulmonology as an outpatient, will request admission for potential bronchoscopy. Ultimately, the decision was made to admit the patient for ongoing issues with severe dyspnea, weakness and fatigue likely related to chronic lung disease and resolving pneumonia. It was recommended to admit this patient at 1900. I discussed the case with the hospitalist service via [employer] and they are agreeable to admit the patient to their services at [address] España. Based on the above, including the patient's age, coexisting illnesses, labs, imaging, and exam findings the decision to treat as an inpatient. I discussed the patient with the hospitalist team who recommended admission to their services. They received the medications, treatments, interventions indicated above and their condition remained stable. I discussed my findings with the patient and their family and they understand and agree with the treatment plan. All patient / family questions were answered to their satisfaction. Based on the above, including the patient's age, coexisting illnesses, labs, imaging, and exam findings the decision to treat as an outpatient. I discussed my findings with the patient and they understand and agree with the treatment plan. Patient / Patient's family was counseled regarding concerning signs and symptoms that should prompt re-evaluation in the ED, and they expressed understanding. All patient / family questions were answered to their satisfaction. Strict return precautions were reviewed. See discharge instructions for more complete detail and supportive care recommendations. Consults/Care Managements Discussions: Per MDM ER treatment provided: See above Procedures:none Critical Care: None The chart was completed utilizing [employer] Speech voice recognition software. Grammatical errors, random word insertions, pronoun errors, and incomplete sentences are an occasional consequence of this system due to software limitations, ambient noise, and hardware issues. Any formal questions or concerns about the content, text, or information contained within the body of this dictation should be directly addressed to the physician for clarification. Past Med/Surg History Problem List (Updated 05/01/25 @ 23:39 by Gary Vera DO) SOB (shortness of breath) History of MAC infection Asthma-COPD overlap syndrome Bacterial pneumonia Enterovirus infection (Acute) Rhinovirus infection (Acute) Elevated procalcitonin (Acute) Hypoxia (Acute) Leukocytosis (Acute) Bilateral pneumonia (Acute) Dysfunction of both eustachian tubes Bilateral chronic serous otitis media Acute hypoxemic respiratory failure (Acute) Vomiting Viral pneumonia (Acute) Epilepsy Bronchiectasis LULI (mycobacterium avium-intracellulare) (Acute) Cough (Acute) Pneumonia (Acute) Hypogammaglobulinemia (Acute) Splenomegaly Pneumonia LULI (mycobacterium avium-intracellulare) Leukemoid reaction (Acute) Leukocytosis (Acute) Anemia (Acute) Dyspnea (Acute) History of TB (tuberculosis) Asthma CLL (chronic lymphocytic leukemia) (Acute) Multifocal pneumonia (Acute) Abnormal chest CT Medical History Chronic cough Sensorineural hearing loss (SNHL) of both ears Chronic maxillary sinusitis History of pneumonia d/c [facility] 12/07/24 Nausea and vomiting after administration of anesthetic agent after inguinal hernia repair, years ago; no issues since then Acute hypoxemic respiratory failure hx 2022, "with severe infection" History of anemia Vasovagal reaction hx, recently when in ENT dr's office ~12/2024, "occurs usually with sudden severe pain" History of epilepsy last seizure ~2018 History of dyspnea "at times" CLL (chronic lymphocytic leukemia) currently on calquence 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, hospitalized for 3 months, abx "for years" Asthma inh and neb BPH (benign prostatic hyperplasia) Surgical History S/p bilateral myringotomy with tube placement Hx of colonoscopy Hx of right inguinal hernia repair History of prostate surgery [facility] surgery History of tonsillectomy and adenoidectomy H/O vasectomy [place] teeth removed S/P TURP 2019 History of bronchoscopy (2021) [facility] Social History Smoking Status: Never smoker Second Hand Exposure: No; Do You Dip or Chew Tobacco: No; Hx Alcohol Use: No Hx Substance Use: No Preferred Language: Japanese Communication Ability: Effective Raw Silk Grader Required: No Beliefs That Will Affect Care: None Current Living Situation: Spouse Current Living Situation Comment: 2 story home Feels Safe at Home: Yes Assistive Devices: None Allergies Allergies Allergy/AdvReac Type Severity Reaction Status Date / Time rofecoxib Allergy Intermediate RASH,SWELLING, Verified 05/01/25 19:18 UNSTEADY GAIT/STUMBLING lamotrigine [From Lamictal] AdvReac Mild cannot Verified 05/01/25 19:18 think straight, stumbling and falling. meperidine AdvReac Mild Vomiting Verified 05/01/25 19:18 Home Meds Home Medications Medication Instructions Recorded Confirmed omega-3 fatty acids 1,000 mg 1,000 mg PO QAM 06/06/22 05/01/25 capsule fluticasone propionate 50 2 spray intranasal BID 06/27/23 05/01/25 mcg/actuation nasal spray,suspension (Allergy Relief (fluticasone)) finasteride 5 mg tablet 5 mg PO QAM 11/07/23 05/01/25 fluticasone furoate 200 1 inh inhalation QA 12/05/24 05/01/25 mcg-vilanterol 25 mcg/dose inhalation powder (Breo Ellipta) acalabrutinib maleate 100 mg 100 mg PO AMHS 04/08/25 05/01/25 tablet (Calquence (acalabrutinib maleate)) dextromethorphan-guaifenesin ER 60 1 tab PO AMHS 04/08/25 05/01/25 mg-1,200 mg tab,extend release,12hr (Mucinex DM) guar gum 1 packet PO QAM 04/08/25 05/01/25 immune glob,gamm(IgG) 10 %-pro-IgA 40 g IV MONTHLY 04/08/25 05/01/25 0 to 50 mcg/mL intravenous solution (Privigen) levalbuterol HCl 1.25 mg/3 mL 1.25 mg inhalation QPM PRN 04/08/25 05/01/25 solution for nebulization shortness of breath loratadine 10 mg capsule 10 mg PO QAM 04/08/25 05/01/25 melatonin 10 mg tablet 10 mg PO HS 04/08/25 05/01/25 ojpfekmwsgfa-eia-jeerz acid-vit 1 tab PO QAM 04/08/25 05/01/25 K-lycop 400 mcg-20 mcg-370 mcg tablet (Men's 50 Plus Multivitamin) sodium chloride 0.65 % nasal spray 1 spray intranasal UD PRN 04/08/25 05/01/25 aerosol (Saline Nasal) Congestion L.acidop,casei,lactis,rham-B.lact,danial 1 cap PO DAILY 04/30/25 05/01/25 625 mg (10 billion cell) capsule (Advanced Probiotic) vitamin A-vitamin C-vit E-min 1 tab PO BID 04/30/25 05/01/25 tablet Previous Rx's Medication Instructions Recorded Flutter Valve #1 ea 11/29/21 Results & Data (ED) Vital Signs Vital Signs - 24 hr 05/01/25 18:02 05/01/25 18:12 05/01/25 18:30 Temperature 37.3 C Temperature Source Temporal Artery Scan Pulse Rate 80 72 Pulse Rate [Apical] 79 Pulse Rhythm [Apical] Regular Pulse Strength [Apical] Normal Respiratory Rate 24 34 H Respiratory Effort / Characteristics Short of Breath Non-Labored Spontaneous Respiratory Depth Normal Respiratory Pattern Regular Blood Pressure 127/61 Blood Pressure [Right Arm] 150/74 H Blood Pressure Mean 83 Blood Pressure Mean [Right Arm] 99 Blood Pressure Position [Right Arm] Sitting Pulse Oximetry 94 94 Oxygen Delivery Method Room Air Room Air Sepsis Recent Fever Within 48 Hours No Sepsis New/Unexplained Change in Mental Status N/A Sepsis Action Taken by Nursing No Action Required 05/01/25 20:00 Temperature Temperature Source Pulse Rate Pulse Rate [Apical] 70 Pulse Rhythm [Apical] Pulse Strength [Apical] Respiratory Rate 18 Respiratory Effort / Characteristics Non-Labored Spontaneous Respiratory Depth Normal Respiratory Pattern Blood Pressure Blood Pressure [Right Arm] 128/59 L Blood Pressure Mean Blood Pressure Mean [Right Arm] 82 Blood Pressure Position [Right Arm] Pulse Oximetry 93 Oxygen Delivery Method Room Air Sepsis Recent Fever Within 48 Hours Sepsis New/Unexplained Change in Mental Status Sepsis Action Taken by Nursing Laboratory Data 05/01/25 18:23 05/01/25 18:23 Lab Results 05/01/25 05/01/25 Range/Units 18:23 18:42 WBC 22.10 H (4.8-10.8) K/ul RBC 3.43 L (4.70-6.10) M/uL Hgb 10.9 L (14.0-18.0) g/dl Hct 33.2 L (42.0-52.0) % MCV 96.8 (80.0-100.0) fL MCH 31.8 (25.0-34.0) pg MCHC 32.8 (32.0-36.0) g/dL RDW Std Deviation 54.0 H (36.4-46.3) fL RDW Coeff of [place] 15.3 H (11.5-14.5) % Plt Count 109 L (130-400) K/uL MPV 11.3 (9.4-12.4) fL Immature Gran % (Auto) 0.4 % Neut % (Auto) 18.6 % Lymph % (Auto) 65.6 % [place] % (Auto) 15.0 % Eos % (Auto) 0.3 % Baso % (Auto) 0.1 % Neut # (Auto) 4.11 (1.40-6.50) K/uL Lymph # (Auto) 14.50 H (1.20-3.40) K/uL [place] # (Auto) 3.31 H (0.11-0.59) K/uL Eos # (Auto) 0.07 (0.00-0.50) K/uL Baso # (Auto) 0.03 (0.00-0.20) K/uL Immature Gran # (Auto) 0.08 (0.01-0.20) K/uL VBG pH 7.47 H (7.36-7.41) VBG pCO2 33 L (38-50) mmHg VBG pO2 43 mmHg VBG HCO3 24 mmol/L VBG O2 Saturation 78.2 % VBG Base Excess 0.9 mEq/L Sodium 138 (136-145) mmol/L Potassium 4.1 (3.5-5.1) mmol/L Chloride 106 (98-107) mmol/L Carbon Dioxide 25 (21-32) mmol/L Anion Gap 7 (3-11) BUN 26 H (6-23) mg/dl Creatinine 1.24 (0.6-1.4) mg/dl Est Cr Clr Drug Dosing 43.8 ml/min eGFR 58.78 BUN/Creatinine Ratio 21.0 H (10-20) Glucose 112 H (70-99(Fasting)) mg/dl Calcium 10.3 (8.6-10.3) mg/dl Administered Medications Fluticasone Propionate (Fluticasone Propionate Na Spr 16 Gm Btl) 2 sprays NA BID FRANCIS Stop: 05/31/25 21:51 Last Admin: 05/01/25 23:26 Dose: Not Given Documented By: ANABELLE Discontinued Medications Parenteral Electrolytes (Plasma-Lyte A Ph 7.4) 500 mls @ 999 mls/hr IV .Q31M ONE Stop: 05/01/25 18:49 Last Infusion: 05/01/25 19:11 Dose: Infused Documented By: Admin: 05/01/25 18:37 Dose: 999 mls/hr Documented By: ZACHERY Methylprednisolone 40 mg/ (Syringe) 0.64 mls @ 1.5 mls/min IV ONE ONE Stop: 05/01/25 22:16 Last Admin: 05/01/25 23:25 Dose: 1.5 mls/min Documented By: ANABELLE Imaging Data Radiologist's Impression: Chest X-Ray 05/01/25 18:19 EXAM: XR chest 1V portable CLINICAL HISTORY: SOB. TECHNIQUE: An X-ray image of the chest is obtained in AP projection. COMPARISON: X-ray Dated 04/30/2025. FINDINGS: Pulmonary Parenchyma: Again noted patchy ill-defined opacities and atelectatic bands in the lower lung zones bilaterally, more evident on the right side. Overall, no significant interval change. No evidence of pleural effusion or pleural thickening. Heart and Mediastinum: Mild cardiomegaly. No mediastinal widening or masses. No hilar or mediastinal lymphadenopathy. Bony Thorax: Spine degenerative changes. Soft Tissues: Soft tissues overlying the chest wall are unremarkable. EKG leads on chest wall. IMPRESSION: 1. Again noted bilateral lower zone ill-defined opacities and atelectatic bands. Correlate with clinical findings. 2. Further assessment by CT may be recommended if clinically indicated. Electronically signed by Arturo Mix 05-01-2025 7:33 PM Discharge Plan Visit Data Chief Complaint: Referred by Doctor Stated Complaint: CHRONIC LUKEMIA, CCL, SOB ED Provider: Gary Vera Discharge Problem: Dyspnea, Anemia, Leukocytosis, Leukemoid reaction, Hypogammaglobulinemia Patient Disposition: Admitted As Inpatient Condition: Fair Discharge Instructions Interventions: ED Discharge Assessment Last Done: 05/01/25 21:22
[2025-05-01] MEDS: PLASMA-LYTE A 500 ML IV ONE (18:37)
[2025-05-01 18:49] LABS: Hematocrit (blood only) 33.2 % (42.0-52.0); Hemoglobin 10.9 g/dl (14.0-18.0); Mean Corpuscular Hemoglobin 31.8 pg (25.0-34.0); Mean Corpuscular Volume 96.8 fL (80.0-100.0); Platelet Count 109 K/uL (130-400); RDW Standard Deviation 54.0 fL (36.4-46.3); Red Blood Count 3.43 M/uL (4.70-6.10); White Blood Count 22.10 K/ul (4.8-10.8)
[2025-05-01 18:54] LABS: Anion Gap 7.0 (3-11); Blood Urea Nitrogen 26.0 mg/dl (6-23); Calcium 10.3 mg/dl (8.6-10.3); Carbon Dioxide 25.0 mmol/L (21-32); Chloride 106.0 mmol/L (98-107); Creatinine Clr Calc Pharmacy 43.8 ml/min; Glucose 112.0 mg/dl (70-99(Fasting)); Potassium 4.1 mmol/L (3.5-5.1); Sodium 138.0 mmol/L (136-145)
[2025-05-01 18:55] LABS: Base Excess VBG 0.9 mEq/L; HCO3 VBG 24 mmol/L; Oxygen Saturation VBG 78.2 %; PCO2 VBG 33 mmHg (38-50); PO2 VBG 43 mmHg; pH VBG 7.47 (7.36-7.41)
[2025-05-01 19:06] LABS: Immature Granulocytes # (auto) 0.08 K/uL (0.01-0.20); Immature Granulocytes % (auto) 0.4 %
--- NOTE | 2025-05-01 19:33 | XRay Report ---
EXAM: XR chest 1V portable CLINICAL HISTORY: SOB. TECHNIQUE: An X-ray image of the chest is obtained in AP projection. COMPARISON: X-ray Dated 04/30/2025. FINDINGS: Pulmonary Parenchyma: Again noted patchy ill-defined opacities and atelectatic bands in the lower lung zones bilaterally, more evident on the right side. Overall, no significant interval change. No evidence of pleural effusion or pleural thickening. Heart and Mediastinum: Mild cardiomegaly. No mediastinal widening or masses. No hilar or mediastinal lymphadenopathy. Bony Thorax: Spine degenerative changes. Soft Tissues: Soft tissues overlying the chest wall are unremarkable. EKG leads on chest wall. IMPRESSION: 1. Again noted bilateral lower zone ill-defined opacities and atelectatic bands. Correlate with clinical findings. 2. Further assessment by CT may be recommended if clinically indicated. Electronically signed by Arturo Mix 05-01-2025 7:33 PM
--- NOTE | 2025-05-01 20:42 | History & Physical Report ---
Date of Service May 01, 2025 Assessment & Plan (1) SOB (shortness of breath): Plan: 80-year-old male with past medical history significant for asthma, COPD, bronchiectasis, chronic IgG deficiency, history of TB, history of B-cell CLL, hyperlipidemia, GERD, BPH, CKD stage III who was recently in the hospital and treated for bilateral pneumonia and also there was some question of TKI induced pneumonitis and treated with steroids and discharged home on 04/15/2025 comes back with shortness of breath. There is a plan for bronchoscopy tomorrow by the pulmonary. Patient was in the ER yesterday but went home and again was feeling short of breath and advised by pulmonary to come back to hospital. Having cough. Sometimes bring phlegm's. Denies any headache. No runny nose or sore throat. Appetite is okay. Sometimes he gets chest pain. Currently no chest pain. No nausea. No abdominal pain. No rash. Normal bowel and bladder movements. Ambulates okay. Hemodynamics okay. Uses oxygen while sleeping. Shortness of breath Possible COPD exacerbation Has leukocytosis ABG okay Possible TKI induced pneumonitis Recently treated for pneumonia will get ct chest Plan for bronchoscopy tomorrow Empiric Vanco and Zosyn History of MAC and Achromobacter Last admit ID recommended Levaquin On 04/13/2025 sputum cultures grew Aspergillus fumigatus IV methylprednisone 40 mg daily Neb atc abd as needed Continue home inhalers Med/telemetry N.p.o. after midnight Pulmonary consult in a.m. and plan for bronchoscopy History of CLL Chronic IV IgG deficiency Gets IVIG as outpatient every 28 days. Will hold Calquence for now BPH On finasteride DVT prophylaxis SCDs for now Disposition Med/telemetry Full code. History of Present Illness Chief Complaint: Shortness of breath Primary Care Provider: Linda Baeza DO 80-year-old male with past medical history significant for asthma, COPD, bronchiectasis, chronic IgG deficiency, history of TB, history of B-cell CLL, hyperlipidemia, GERD, BPH, CKD stage III who was recently in the hospital and treated for bilateral pneumonia and also there was some question of TKI induced pneumonitis and treated with steroids and discharged home on 04/15/2025 comes back with shortness of breath. There is a plan for bronchoscopy tomorrow by the pulmonary. Patient was in the ER yesterday but went home and again was feeling short of breath and advised by pulmonary to come back to hospital. Having cough. Sometimes bring phlegm's. Denies any headache. No runny nose or sore throat. Appetite is okay. Sometimes he gets chest pain. Currently no chest pain. No nausea. No abdominal pain. No rash. Normal bowel and bladder movements. Ambulates okay. Hemodynamics okay. Uses oxygen while sleeping. Past medical history. As mentioned above. Past surgical history. Bronchoscopy or dental surgery. Tonsillectomy adenoidectomy. Heart catheterization. Vasectomy. Removal of prostate. Myringotomy. Social history: . No smoking. No alcohol use. No drug use. Family history. Brother had cancer. Brother had hypertension. Brother had b ipolar disorder. Maternal grandmother had diabetes. Mother had diabetes. Father had stroke. Daughter has immunodeficiency. Allergies Allergy/AdvReac Type Severity Reaction Status Date / Time rofecoxib Allergy Intermediate RASH,SWELLING, Verified 05/01/25 19:18 UNSTEADY GAIT/STUMBLING lamotrigine [From Lamictal] AdvReac Mild cannot Verified 05/01/25 19:18 think straight, stumbling and falling. meperidine AdvReac Mild Vomiting Verified 05/01/25 19:18 Home Medications Medication Instructions Recorded Confirmed Type Flutter Valve #1 ea 11/29/21 04/30/25 Rx omega-3 fatty acids 1,000 mg 1,000 mg PO QAM 06/06/22 05/01/25 History capsule fluticasone propionate 50 2 spray intranasal BID 06/27/23 05/01/25 History mcg/actuation nasal spray,suspension (Allergy Relief (fluticasone)) finasteride 5 mg tablet 5 mg PO QAM 11/07/23 05/01/25 History fluticasone furoate 200 1 inh inhalation QA 12/05/24 05/01/25 History mcg-vilanterol 25 mcg/dose inhalation powder (Breo Ellipta) acalabrutinib maleate 100 mg 100 mg PO [facility] 04/08/25 05/01/25 History tablet (Calquence (acalabrutinib maleate)) dextromethorphan-guaifenesin ER 60 1 tab PO [facility] 04/08/25 05/01/25 History mg-1,200 mg tab,extend release,12hr (Mucinex DM) guar gum 1 packet PO QAM 04/08/25 05/01/25 History immune glob,gamm(IgG) 10 %-pro-IgA 40 g IV MONTHLY 04/08/25 05/01/25 History 0 to 50 mcg/mL intravenous solution (Privigen) levalbuterol HCl 1.25 mg/3 mL 1.25 mg inhalation QPM PRN 04/08/25 05/01/25 History solution for nebulization shortness of breath loratadine 10 mg capsule 10 mg PO QAM 04/08/25 05/01/25 History melatonin 10 mg tablet 10 mg PO HS 04/08/25 05/01/25 History kuiiirzkmkyx-ekj-gbrcr acid-vit 1 tab PO QAM 04/08/25 05/01/25 History K-lycop 400 mcg-20 mcg-370 mcg tablet (Men's 50 Plus Multivitamin) sodium chloride 0.65 % nasal spray 1 spray intranasal UD PRN 04/08/25 05/01/25 History aerosol (Saline Nasal) Congestion L.acidop,casei,lactis,rham-B.lact,danial 1 cap PO DAILY 04/30/25 05/01/25 History 625 mg (10 billion cell) capsule (Advanced Probiotic) vitamin A-vitamin C-vit E-min 1 tab PO BID 04/30/25 05/01/25 History tablet Past Med/Surg History Problem List (Updated 05/01/25 @ 23:39 by Gary Vera DO) SOB (shortness of breath) History of MAC infection Asthma-COPD overlap syndrome Bacterial pneumonia Enterovirus infection (Acute) Rhinovirus infection (Acute) Elevated procalcitonin (Acute) Hypoxia (Acute) Leukocytosis (Acute) Bilateral pneumonia (Acute) Dysfunction of both eustachian tubes Bilateral chronic serous otitis media Acute hypoxemic respiratory failure (Acute) Vomiting Viral pneumonia (Acute) Epilepsy Bronchiectasis ULLI (mycobacterium avium-intracellulare) (Acute) Cough (Acute) Pneumonia (Acute) Hypogammaglobulinemia (Acute) Splenomegaly Pneumonia LULI (mycobacterium avium-intracellulare) Leukemoid reaction (Acute) Leukocytosis (Acute) Anemia (Acute) Dyspnea (Acute) History of TB (tuberculosis) Asthma CLL (chronic lymphocytic leukemia) (Acute) Multifocal pneumonia (Acute) Abnormal chest CT Medical History Chronic cough Sensorineural hearing loss (SNHL) of both ears Chronic maxillary sinusitis History of pneumonia d/c [facility] 12/07/24 Nausea and vomiting after administration of anesthetic agent after inguinal hernia repair, years ago; no issues since then Acute hypoxemic respiratory failure hx 2022, "with severe infection" History of anemia Vasovagal reaction hx, recently when in ENT dr's office ~12/2024, "occurs usually with sudden severe pain" History of epilepsy last seizure ~2018 History of dyspnea "at times" CLL (chronic lymphocytic leukemia) currently on calquence 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, hospitalized for 3 months, abx "for years" Asthma inh and neb BPH (benign prostatic hyperplasia) Surgical History S/p bilateral myringotomy with tube placement Hx of colonoscopy Hx of right inguinal hernia repair History of prostate surgery [facility] surgery History of tonsillectomy and adenoidectomy H/O vasectomy [place] teeth removed S/P TURP 2019 History of bronchoscopy (2021) [facility] Social History Smoking Status: Former smoker Tobacco Type: Cigarettes Second Hand Exposure: No; Do You Dip or Chew Tobacco: No; Tobacco Cessation Education Requested by Patient: No Hx Alcohol Use: No Hx Substance Use: No Preferred Language: Welsh Communication Ability: Effective Head Of History Required: No Beliefs That Will Affect Care: None Current Living Situation: Spouse Current Living Situation Comment: 2 story home Other Information That Helps Us Care for You: No Feels Safe at Home: Yes Safety Concerns: Feels Safe At This Time Assistive Devices: Glasses and Hearing Aid - Bilateral Review of Systems Review of Systems: All systems reviewed & are unremarkable except as noted in HPI & below Physical Exam Physical Exam: General- Not in distress Head- atraumatic Eyes- PERRL. ENT- oropharynx clear Neck- supple, no JVD. Lungs- clear to auscultation no wheezing or crackles. Heart- regular rate and rhythm; no murmur, no gallop. Abdomen- normal bowel sounds, soft, nontender, no distension Extremities- no pretibial edema, no erythema seen Neuro- alert, oriented PERRL, no facial palsy; no dysarthria; moves extremities Results & Data Results & Data Vital Signs (Past 12 Hours) Vital Signs Temp Pulse Pulse Resp BP BP Pulse Ox 05/01/25 18:30 72 05/01/25 18:12 79 34 H 150/74 H 94 05/01/25 18:02 37.3 C 80 24 127/61 94 O2 Del Method 05/01/25 18:30 05/01/25 18:12 Room Air 05/01/25 18:02 Room Air Diagnostic Findings Laboratory Results WBC 22.10 K/ul (4.8-10.8) H 05/01/25 18:23 RBC 3.43 M/uL (4.70-6.10) L 05/01/25 18:23 Hgb 10.9 g/dl (14.0-18.0) L 05/01/25 18:23 Hct 33.2 % (42.0-52.0) L 05/01/25 18:23 MCV 96.8 fL (80.0-100.0) 05/01/25 18:23 MCH 31.8 pg (25.0-34.0) 05/01/25 18:23 MCHC 32.8 g/dL (32.0-36.0) 05/01/25 18:23 RDW Std Deviation 54.0 fL (36.4-46.3) H 05/01/25 18:23 RDW Coeff of [place] 15.3 % (11.5-14.5) H 05/01/25 18:23 Plt Count 109 K/uL (130-400) L 05/01/25 18:23 MPV 11.3 fL (9.4-12.4) 05/01/25 18:23 Immature Gran % (Auto) 0.4 % 05/01/25 18:23 Neut % (Auto) 18.6 % 05/01/25 18:23 Lymph % (Auto) 65.6 % 05/01/25 18:23 [place] % (Auto) 15.0 % 05/01/25 18:23 Eos % (Auto) 0.3 % 05/01/25 18:23 Baso % (Auto) 0.1 % 05/01/25 18:23 Neut # (Auto) 4.11 K/uL (1.40-6.50) 05/01/25 18:23 Lymph # (Auto) 14.50 K/uL (1.20-3.40) H 05/01/25 18:23 [place] # (Auto) 3.31 K/uL (0.11-0.59) H 05/01/25 18:23 Eos # (Auto) 0.07 K/uL (0.00-0.50) 05/01/25 18:23 Baso # (Auto) 0.03 K/uL (0.00-0.20) 05/01/25 18:23 Immature Gran # (Auto) 0.08 K/uL (0.01-0.20) 05/01/25 18:23 VBG pH 7.47 (7.36-7.41) H 05/01/25 18:42 VBG pCO2 33 mmHg (38-50) L 05/01/25 18:42 VBG pO2 43 mmHg 05/01/25 18:42 VBG HCO3 24 mmol/L 05/01/25 18:42 VBG O2 Saturation 78.2 % 05/01/25 18:42 VBG Base Excess 0.9 mEq/L 05/01/25 18:42 Sodium 138 mmol/L (136-145) 05/01/25 18:23 Potassium 4.1 mmol/L (3.5-5.1) 05/01/25 18:23 Chloride 106 mmol/L (98-107) 05/01/25 18:23 Carbon Dioxide 25 mmol/L (21-32) 05/01/25 18:23 Anion Gap 7 (3-11) 05/01/25 18:23 BUN 26 mg/dl (6-23) H 05/01/25 18:23 Creatinine 1.24 mg/dl (0.6-1.4) 05/01/25 18:23 Est Cr Clr Drug Dosing 43.8 ml/min 05/01/25 18:23 eGFR 58.78 05/01/25 18:23 BUN/Creatinine Ratio 21.0 (10-20) H 05/01/25 18:23 Glucose 112 mg/dl (70-99(Fasting)) H 05/01/25 18:23 Calcium 10.3 mg/dl (8.6-10.3) 05/01/25 18:23 Impressions Chest X-Ray 05/01/25 18:19 EXAM: XR chest 1V portable CLINICAL HISTORY: SOB. TECHNIQUE: An X-ray image of the chest is obtained in AP projection. COMPARISON: X-ray Dated 04/30/2025. FINDINGS: Pulmonary Parenchyma: Again noted patchy ill-defined opacities and atelectatic bands in the lower lung zones bilaterally, more evident on the right side. Overall, no significant interval change. No evidence of pleural effusion or pleural thickening. Heart and Mediastinum: Mild cardiomegaly. No mediastinal widening or masses. No hilar or mediastinal lymphadenopathy. Bony Thorax: Spine degenerative changes. Soft Tissues: Soft tissues overlying the chest wall are unremarkable. EKG leads on chest wall. IMPRESSION: 1. Again noted bilateral lower zone ill-defined opacities and atelectatic bands. Correlate with clinical findings. 2. Further assessment by CT may be recommended if clinically indicated. Electronically signed by Arturo Mix 05-01-2025 7:33 PM ECG Additional Comments: ECG. Normal sinus rhythm with sinus arrhythmia at a rate of 72. No acute ST changes seen. QTc 378. Code Status & VTE Plan VTE Prophylaxis Plan VTE Prophylaxis will be ordered: Yes
[2025-05-01] MEDS ORDERED: SODIUM CHLORIDE 0.65% NA SOLN 45 ML (OCEAN) PRN (21:52)
[2025-05-01] MEDS ORDERED: LEVALBUTEROL 1.25 MG/3 ML NEB NEB PRN (21:52)
[2025-05-01] MEDS ORDERED: NON-FORMULARY MEDICATION (Vitamin A-Vitamin C-Vit E-Min Tablet) PO SCH (21:52)
[2025-05-01] MEDS ORDERED: NITROGLYCERIN SL 0.4 MG/TAB TAB SL PRN (21:52)
[2025-05-01] MEDS ORDERED: ACETAMINOPHEN 325 MG TAB PO PRN (21:52)
[2025-05-01] MEDS ORDERED: VANCOMYCIN CONSULT ACTIVE PRN (21:52)
[2025-05-01] MEDS ORDERED: guaiFENesin 600 MG TABCR PO PRN (22:33)
[2025-05-01] MEDS: FLUTICASONE PROPIONATE NA SPR 16 GM BTL SCH (23:26)
[2025-05-01] MEDS: VANCOMYCIN HCL 1,500 MG in SODIUM CHLORIDE 0.9% 500 ML IV ONE (23:32)
[2025-05-01] MEDS: MELATONIN 3 MG TAB PO PRN (23:34)
[2025-05-01] MEDS: PIPERACILLIN/TAZOBACTAM 4.5 GM/100 ML BAG IV ONE (23:40)
[2025-05-02] MEDS: LEVALBUTEROL 1.25 MG/3 ML NEB NEB SCH (00:18)
--- NOTE | 2025-05-02 00:59 | CT Scan Report ---
Exam(s): CT CHEST Without Contrast EXAM: CT Chest Without Intravenous Contrast CLINICAL HISTORY: Cough and Shortness of breath TECHNIQUE: Axial computed tomography images of the chest without intravenous contrast. CTDI is 8.43 mGy and DLP is 323.53 mGy-cm. Automated exposure control was utilized for the study. A dose lowering technique was utilized adhering to the principles of ALARA. COMPARISON: CT chest 04/11/2025 FINDINGS: Lungs: Diffuse bilateral airspace opacities are most consistent with multifocal pneumonia. Emphysema is noted. A 3 mm right middle lobe pulmonary nodule is present. A 7 mm left lower lobe nodule is present. Pleural space: Unremarkable. No significant effusion. No pneumothorax. Heart: Coronary artery calcifications are present. No cardiomegaly. No significant pericardial effusion. Mediastinum: Mediastinal lymph nodes measure up to 1.1 cm. Bones/joints: There are degenerative changes of the spine. No acute fracture. Soft tissues: There is bilateral gynecomastia. Vasculature: Mild atherosclerosis. Lymph nodes: See above. IMPRESSION: 1. Diffuse bilateral airspace opacities are most consistent with multifocal pneumonia. Overall these have improved since the prior study. 2. Emphysema is noted. Emphysema is an independent risk factor for lung cancer. Recommend evaluation for low dose lung cancer screening protocol. 3. Mediastinal lymph nodes measure up to 1.1 cm. This could be infectious, inflammatory or neoplastic. 4. Pulmonary nodules measure up to 7 mm. Fleischner Society Guidelines for low-risk or high-risk patients recommend an initial follow-up chest CT at 3-6 months and if unchanged, 18-24 months due to the morphologic appearance of this nodule. Electronically signed by: Ally Trevizo MD 05/02/25 00:58 AM
[2025-05-02] MEDS: VANCOMYCIN HCL 1,250 MG in SODIUM CHLORIDE 0.9% 250 ML IV SCH (05:13)
[2025-05-02] MEDS: PIPERACILLIN/TAZOBACTAM 4.5 GM/100 ML BAG IV SCH (05:14)
[2025-05-02 05:59] LABS: Anion Gap 6.0 (3-11); Blood Urea Nitrogen 25.0 mg/dl (6-23); Calcium 9.6 mg/dl (8.6-10.3); Carbon Dioxide 25.0 mmol/L (21-32); Chloride 109.0 mmol/L (98-107); Creatinine Clr Calc Pharmacy 50.0 ml/min; Glucose 172.0 mg/dl (70-99(Fasting)); Magnesium 2.0 mg/dl (1.7-2.4); Potassium 4.1 mmol/L (3.5-5.1); Sodium 140.0 mmol/L (136-145)
[2025-05-02 06:13] LABS: Hematocrit (blood only) 29.9 % (42.0-52.0); Hemoglobin 10.1 g/dl (14.0-18.0); Mean Corpuscular Hemoglobin 32.6 pg (25.0-34.0); Mean Corpuscular Volume 96.5 fL (80.0-100.0); Platelet Count 86 K/uL (130-400); RDW Standard Deviation 53.4 fL (36.4-46.3); Red Blood Count 3.10 M/uL (4.70-6.10); White Blood Count 14.26 K/ul (4.8-10.8)
[2025-05-02 06:46] LABS: Immature Granulocytes # (auto) 0.08 K/uL (0.01-0.20); Immature Granulocytes % (auto) 0.6 %; RBC Morphology Unremarkable
[2025-05-02] MEDS: FINASTERIDE 5 MG TAB PO SCH (08:38)
[2025-05-02] MEDS: FLUTICASONE/VILANTEROL 200/25MCG 14 PUFFS/INHALER INH SCH (08:38)
[2025-05-02] MEDS: ADVANCED PROBIOTIC 625 MG CAPSULE PO SCH (08:39)
[2025-05-02] MEDS: LORATADINE 10 MG TAB PO SCH (08:39)
[2025-05-02] MEDS: CEROVITE ADV FORMULA TAB PO SCH (08:39)
--- NOTE | 2025-05-02 08:41 | Pulmonary Consultation ---
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 s/p treatment, diagnosed asthma in the 40s currently on Breo, MDR Achromobactor s/p treatment PFT 10/26/2023 personally reviewed: No obstructive lung dysfunction, insignificant bronchodilator response, normal TLC, mild decrease in DLCO (Increase in FVC by 200 mL, increase in FEV1 by 320 mL, increase in DLCO 43--> 61% compared to 11/28) FVC 3.99 L 97%, FEV1 2.91 L 98%, FEV1/FVC 73%, ERV 130%, RV 94%, TLC 86%, RV/TLC-5%, DLCO 61%, DLCO/VA 81% CT chest 05/01/2025 personally reviewed: Patchy consolidative opacities appreciated bilaterally in the right middle, right lower as well as left lower lobe Overall significant improvement in the patchy opacities, mild worsening in the right upper lobe perifissural Significant mediastinal lymphadenopathy which is chronic -- Acute hypoxic respiratory failure Secondary to multifocal pneumonia Overall the CAT scan of the chest done 05/01/2025 shows improvement in the bilateral lower lobe and middle lobe opacities Mild patchy new groundglass opacity in the right upper lobe perifissural. Respiratory BioFire negative for entero-/rhinovirus on 05/01/2025, he was positive for the same even on 12/05/2024 as well as 04/08/2025 Procalcitonin negative --Asthma-COPD overlap syndrome Patient was diagnosed in his late 40s He did have symptoms in the child but he was never diagnosed officially with it Does have seasonal allergies Non smoker Not in exacerbation On Breo 200 at home -- Bronchiectasis and chronic IgG deficiency Sputum culture in outside facility grew Achromobacter denitrificans. Multi drug resistance pattern-- Sensitive to: Zosyn, Amikacin, Gentamicin, imipenem, tobramycin , Completed the course of IV Zosyn 11/27/2021 LULI grew on sputum 11/16/21 only one sample, Not on treatment Patient does have mediastinal lymphadenopathy from before most like from underlying CML Autoimmune workup 08/11/2023 negative for everything, complements within normal limit Hospitalizations from August 2023 showed diffuse groundglass opacities bilaterally, respiratory bio fire was negative for everything at that time. He was given steroids as well as antibiotics and he did find significant benefit. HRCT December 2023 showed No significant reticular markings, groundglass opacities resolved Pulmonary toxicity/pneumonitis from TKI could be in the differential. I discussed this with Dr. Carlos Pierre, plan was if in future he gets similar problems then need to stop the medication For bronchiectasis continue with Mucinex and Flutter valve whenever he has chest congestion HRCT 12/26/2023 personally reviewed: Linear scarring of the left upper lobe No increased reticular markings or honeycombing Mediastinal lymphadenopathy persists --History of 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 Pierre Started on Acalabrutinib 02/2022 (Calquence) Plan: N.p.o. For bronchoscopy today Will send the cultures for blasto, coccidioidal, crypto as well as Aspergillus. PT/INR within normal limit on 04/08/2025 Platelet 86 which are greater than 50,000. Risk and benefit of the procedure explained to the patient in depth. Patient understands and wants to go ahead with the procedures Consent signed, witnessed and put in the chart I spent more than 75 minutes looking in the chart, images, discussing the plan of care with the patient, RN as well as primary team Please note the above document was generated using voice recognition software. It may contain grammatical, syntax or spelling errors.Any formal questions or concerns about the content, text or information contained within the body of this dictation should be directly addressed to the provider for clarification. History of Present Illness Attending Physician: Nikhil Real MD History of Present Illness 80-year-old male admitted to the hospital for shortness of breath Past medical history: BPH, GERD, CLL, history of TB in 1968 s/p treatment, diagnosed asthma in the 40s currently on Breo, MDR Achromobactor s/p treatment Patient was last seen by me in the office on 04/23/2025 He was recently hospitalized early in April 2025 for multifocal pneumonia He was treated with antibiotics, I even saw him in the office on 04/23/2025 he was clinically doing better He did visit the ER on 04/30/2025 which showed improvement in the chest x-ray and he was sent home but he started to complain worsening shortness of breath hypoxia at home He tried to reach out to the office, I advised him to come to the ER to get admitted. At the time of examination he was getting nebulizer treatment. He stated that he was doing better and then suddenly he had issues getting his oxygen up and exertional shortness of breath Notes fever or chills No dysuria, no diarrhea Denies any unusual headache or blurry vision No nausea or vomiting No hemoptysis No night sweats, no unintentional weight loss Social history: Non-smoker, no alcohol use, no illicit drug use. 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 Worked in [employer] for approximately 1 year where he was exposed to gases from [employer] Pets: None. No birds or poultry nearby Allergies: Seasonal. Does not take any medications for it Asthma: No family history of asthma. Questionable childhood history of asthma and was never officially diagnosed Lung cancer: No history of lung cancer in the family Allergies Allergy/AdvReac Type Severity Reaction Status Date / Time rofecoxib Allergy Intermediate RASH,SWELLING, Verified 05/01/25 19:18 UNSTEADY GAIT/STUMBLING lamotrigine [From Lamictal] AdvReac Mild cannot Verified 05/01/25 19:18 think straight, stumbling and falling. meperidine AdvReac Mild Vomiting Verified 05/01/25 19:18 Home Medications Medication Instructions Recorded Confirmed Type Flutter Valve #1 ea 11/29/21 04/30/25 Rx omega-3 fatty acids 1,000 mg 1,000 mg PO QAM 06/06/22 05/01/25 History capsule fluticasone propionate 50 2 spray intranasal BID 06/27/23 05/01/25 History mcg/actuation nasal spray,suspension (Allergy Relief (fluticasone)) finasteride 5 mg tablet 5 mg PO QAM 11/07/23 05/01/25 History fluticasone furoate 200 1 inh inhalation QAM 12/05/24 05/01/25 History mcg-vilanterol 25 mcg/dose inhalation powder (Breo Ellipta) acalabrutinib maleate 100 mg 100 mg PO AMHS 04/08/25 05/01/25 History tablet (Calquence (acalabrutinib maleate)) dextromethorphan-guaifenesin ER 60 1 tab PO AMHS 04/08/25 05/01/25 History mg-1,200 mg tab,extend release,12hr (Mucinex DM) guar gum 1 packet PO QAM 04/08/25 05/01/25 History immune glob,gamm(IgG) 10 %-pro-IgA 40 g IV MONTHLY 04/08/25 05/01/25 History 0 to 50 mcg/mL intravenous solution (Privigen) levalbuterol HCl 1.25 mg/3 mL 1.25 mg inhalation QPM PRN 04/08/25 05/01/25 History solution for nebulization shortness of breath loratadine 10 mg capsule 10 mg PO QAM 04/08/25 05/01/25 History melatonin 10 mg tablet 10 mg PO HS 04/08/25 05/01/25 History fpicailrhifp-bpg-lusfx acid-vit 1 tab PO QAM 04/08/25 05/01/25 History K-lycop 400 mcg-20 mcg-370 mcg tablet (Men's 50 Plus Multivitamin) sodium chloride 0.65 % nasal spray 1 spray intranasal UD PRN 04/08/25 05/01/25 History aerosol (Saline Nasal) Congestion L.acidop,casei,lactis,rham-B.lact,danial 1 cap PO DAILY 04/30/25 05/01/25 History 625 mg (10 billion cell) capsule (Advanced Probiotic) vitamin A-vitamin C-vit E-min 1 tab PO BID 04/30/25 05/01/25 History tablet Patient History Medical History Chronic cough Sensorineural hearing loss (SNHL) of both ears Chronic maxillary sinusitis History of pneumonia d/c [facility] 12/07/24 Nausea and vomiting after administration of anesthetic agent after inguinal hernia repair, years ago; no issues since then Acute hypoxemic respiratory failure hx 2023, "with severe infection" History of anemia Vasovagal reaction hx, recently when in ENT dr's office ~12/2024, "occurs usually with sudden severe pain" History of epilepsy last seizure ~2019 History of dyspnea "at times" CLL (chronic lymphocytic leukemia) currently on calquence 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, hospitalized for 3 months, abx "for years" Asthma inh and neb BPH (benign prostatic hyperplasia) Surgical History S/p bilateral myringotomy with tube placement Hx of colonoscopy Hx of right inguinal hernia repair History of prostate surgery Greenlight surgery History of tonsillectomy and adenoidectomy H/O vasectomy Quail teeth removed S/P TURP 2018 History of bronchoscopy (2021) [facility] Social History Smoking Status: Former smoker Tobacco Type: Cigarettes Second Hand Exposure: No; Do You Dip or Chew Tobacco: No; Tobacco Cessation Education Requested by Patient: No Hx Alcohol Use: No Hx Substance Use: No Preferred Language: Lithuanian Communication Ability: Effective Daycare Teacher Required: No Beliefs That Will Affect Care: None Current Living Situation: Spouse Current Living Situation Comment: 2 story home Other Information That Helps Us Care for You: No Feels Safe at Home: Yes Safety Concerns: Feels Safe At This Time Assistive Devices: Glasses and Hearing Aid - Bilateral Review of Systems 2 Review of Systems: All systems reviewed & are unremarkable except as noted in HPI & below Physical Exam 2 Physical Exam: Constitutional: No acute distress HEENT: EOMI, PERRLA Respiratory system: Decreased air entry bilaterally, no wheeze, no rhonchi, positive crackles bilaterally, left > right CVS: S1-S2 positive, no murmurs or gallops Abdomen: Soft, nontender, nondistended, positive bowel sounds x4 Extremities: +2 pulses bilaterally radialis/ dorsalis pedis, no cyanosis, no edema Neuro: Awake alert oriented x3 Psych: Normal mood and affect G/U: No [place] Skin: no rashes, warm and dry Lymphatic: no cervical or axillary lymphadenopathy Results & Data Results & Data Vital Signs (Past 12 Hours) Vital Signs Temp Pulse Pulse Pulse Resp BP BP 05/02/25 08:08 36.4 C L 62 20 120/62 05/02/25 07:44 65 16 05/02/25 07:04 65 05/02/25 02:48 73 05/02/25 02:43 36.5 C 68 18 121/59 L 05/01/25 21:45 05/01/25 21:45 37.0 C 75 20 05/01/25 21:22 78 19 126/57 L 05/01/25 21:15 78 20 BP Pulse Ox O2 Del Method O2 Flow Rate 05/02/25 08:08 92 Nasal Cannula 3 05/02/25 07:44 93 Nasal Cannula 2 05/02/25 07:04 05/02/25 02:48 05/02/25 02:43 94 Nasal Cannula 3 05/01/25 21:45 Nasal Cannula 3 05/01/25 21:45 127/62 93 Nasal Cannula 3 05/01/25 21:22 91 Nasal Cannula 2 05/01/25 21:15 126/57 L 91 Nasal Cannula 2 Laboratory Results 05/02/25 05:19 05/02/25 05:19 PG Care Time/CCT Total # of Minutes Spent Total Time Spent with Patient: Total time spent is greater than 50% in coordination of care (as documented) at patient's floor/unit and/or counseling patient: Coding Level of Care Code 91612 INT INP/OBS CARE 75MIN Diagnoses SOB (shortness of breath) R06.02 Asthma-COPD overlap syndrome J44.89 Bilateral pneumonia J18.9 Acute hypoxemic respiratory failure J96.01 CLL (chronic lymphocytic leukemia) C91.[address] R93.89 Bronchiectasis J47.9
[2025-05-02] MEDS: MIDAZOLAM HCL 5 MG/ML 2ML VIAL IV STA ×2 (11:56→12:49)
--- NOTE | 2025-05-02 12:15 | Pre Anesthesia Assessment ---
Date of Service May 02, 2025 Pre Sedation Assessment Vital Signs Temp Pulse Pulse Pulse Resp BP BP 05/02/25 11:23 36.5 C 83 18 109/61 05/02/25 10:32 73 18 05/02/25 08:59 05/02/25 08:08 36.4 C L 62 20 120/62 05/02/25 07:44 65 16 05/02/25 07:04 65 05/02/25 02:48 73 05/02/25 02:43 36.5 C 68 18 121/59 L 05/01/25 21:45 05/01/25 21:45 37.0 C 75 20 05/01/25 21:22 78 19 126/57 L 05/01/25 21:15 78 20 05/01/25 20:00 70 18 05/01/25 18:30 72 05/01/25 18:12 79 34 H 05/01/25 18:02 37.3 C 80 24 127/61 BP Pulse Ox O2 Del Method O2 Flow Rate 05/02/25 11:23 95 Nasal Cannula 3 05/02/25 10:32 93 Nasal Cannula 2 05/02/25 08:59 Nasal Cannula 3 05/02/25 08:08 92 Nasal Cannula 3 05/02/25 07:44 93 Nasal Cannula 2 05/02/25 07:04 05/02/25 02:48 05/02/25 02:43 94 Nasal Cannula 3 05/01/25 21:45 Nasal Cannula 3 05/01/25 21:45 127/62 93 Nasal Cannula 3 05/01/25 21:22 91 Nasal Cannula 2 05/01/25 21:15 126/57 L 91 Nasal Cannula 2 05/01/25 20:00 128/59 L 93 Room Air 05/01/25 18:30 05/01/25 18:12 150/74 H 94 Room Air 05/01/25 18:02 94 Room Air Pre-Sedation Airway Assessment Smoking Status: Former smoker Hx Sleep Apnea: No ASA: ASA3 Procedure Planning Contraindications for Sedation: none Current Medications Reviewed: Yes Notes The planned sedation has been discussed with the patient. Informed Consent was obtained. I have identified the patient, determined the appropriateness of sedation and have assessed the patient immediately prior to the procedure. All medicine(s) and interventions are by my order.
--- NOTE | 2025-05-02 12:16 | Post Anesthesia Assessment ---
Date of Service May 02, 2025 Post Sedation Assessment Vital Signs Temp Pulse Pulse Pulse Resp BP BP 05/02/25 11:23 36.5 C 83 18 109/61 05/02/25 10:32 73 18 05/02/25 08:59 05/02/25 08:08 36.4 C L 62 20 120/62 05/02/25 07:44 65 16 05/02/25 07:04 65 05/02/25 02:48 73 05/02/25 02:43 36.5 C 68 18 121/59 L 05/01/25 21:45 05/01/25 21:45 37.0 C 75 20 05/01/25 21:22 78 19 126/57 L 05/01/25 21:15 78 20 05/01/25 20:00 70 18 05/01/25 18:30 72 05/01/25 18:12 79 34 H 05/01/25 18:02 37.3 C 80 24 127/61 BP Pulse Ox O2 Del Method O2 Flow Rate 05/02/25 11:23 95 Nasal Cannula 3 05/02/25 10:32 93 Nasal Cannula 2 05/02/25 08:59 Nasal Cannula 3 05/02/25 08:08 92 Nasal Cannula 3 05/02/25 07:44 93 Nasal Cannula 2 05/02/25 07:04 05/02/25 02:48 05/02/25 02:43 94 Nasal Cannula 3 05/01/25 21:45 Nasal Cannula 3 05/01/25 21:45 127/62 93 Nasal Cannula 3 05/01/25 21:22 91 Nasal Cannula 2 05/01/25 21:15 126/57 L 91 Nasal Cannula 2 05/01/25 20:00 128/59 L 93 Room Air 05/01/25 18:30 05/01/25 18:12 150/74 H 94 Room Air 05/01/25 18:02 94 Room Air Discharge Sedation Level of Care: Fast Track Phase II Post Sedation Plan On clinical assessment, the patient appears to have tolerated the sedation without complications. Patient is recovering as anticipated. Patient will continue to be monitored by nursing and may be discharged when sedation discharge criteria are met per below protocol. Upon Completions of procedure up to 15 minutes continue every 5 minute vital signs and the P.A.R. score; then discharge to a Phase I or Fast Track to Phase II per the following guidelines: * Discharge Patient to appropriate Phase II area if PAR is 8 or greater or return to pre- procedure baseline. The post - procedure orders will be as directed. * If PAR score is less than 8 or not return to pre-procedure baseline then patient will follow Phase I monitoring till PAR is reached for Phase II. The Phase I may be done in procedure room or may call to secure a Phase I area. * If naloxone or flumazenil are used for reversal, hold in Phase I for continued monitoring from when last reversal dose was given for a minimum of 60 minutes or longer pending the nurse and/or physician discretion of patient condition before discharge to Phase II. Please call the Sedation Physician to re-evaluate and complete post-note for discharge to Phase II area. Do NOT discharge from procedure sedation or Phase 1 until post- sedation evaluation note is complete by procedure /sedation MD Sedation Discharge Instructions to be given to the patient at discharge to home.
--- NOTE | 2025-05-02 12:30 | Procedure Note ---
Procedure Note: Bronchoscopy Procedure PREOPERATIVE DIAGNOSIS: Multifocal pneumonia in immunosuppressed patient POSTOPERATIVE DIAGNOSIS: Multifocal pneumonia in immunosuppressed patient PROCEDURE PERFORMED: Flexible fiberoptic bronchoscopy with bronchial lavage and transbronchial biopsies COMPLICATIONS: None. INDICATION: Rule out indolent infection and/or malignancy PROCEDURE: After obtaining an informed consent, the patient was brought to the ICU. The patient had appropriate oxygen, blood pressure, heart rate, and respiratory rate monitoring applied and monitored continuously throughout the procedure. Supplemental oxygen via nasal cannula as per nursing records was applied to the nasopharynx with adequate saturations achieved. Topical anesthesia with nebulized 1% lidocaine was achieved. Subsequent to this, the patient was premedicated with 4 mg of midazolam and 100 mcg of fentanyl. Sedation start: 11:56 AM Sedation end: 12:13 PM Upper Airway: The oropharynx and larynx were well visualized and showed normal mucosa. There was normal vocal cord motion without masses or lesions. Additional topical anesthesia with 1% lidocaine was applied to the trachea and mindi. The trachea appeared normal.The bronchoscope was then advanced through the mindi, which was sharp. The scope was then advanced into the right main stem and each segment, subsegement in the right upper lobe, right middle lobe and right lower lobe were visualized. There was some clear secretion which was suctioned out. There were no other findings including evidence of mass, anatomic distortions, or hemorrhage. The bronchoscope was subsequently withdrawn and advanced into the left mainstem. Again, each segment and subsegment was well visualized. No specific masses or other lesions were identified throughout the tracheobronchial tree on the left. There was minimal clear secretion which was suctioned out. The bronchoscope was then wedged in the right lower lobe anterior segment and bronchoalveolar lavage samples were obtained. 90 ml of saline was instilled and 30 ml of fluid was aspirated back.The bronchoscope was withdrawn and the area was suctioned clear. The bronchoscope was then re-advanced into the right lower lobe anterior segment and total 5 transbronchial biopsies were taken. 3 transbronchial biopsies were put in formalin and 2 in saline for culture Minimal hemorrhage was identified and suctioned clear without difficulty. Cold saline was utilized to achieve adequate hemostasis. The bronchoscope was then withdrawn to the mainstem. The area was suctioned clear. The bronchoscope was then withdrawn. The patient tolerated the procedure well without evidence of desaturation or complications. Bronchoalveolar lavage samples were sent for cell count, Gram stain and bacterial culture, AFB culture and smear, fungal culture and smear, cr yptococcus, Coccidioides, histoplasma, Aspergillus and cytology. Transbronchial biopsies were sent for tissue culture (bacteria, AFB and fungal) and pathology. Estimated blood loss: Less than 3 mL Recommendations: Follow-up micro, cytology and pathology Follow-up chest x-ray Please note the above document was generated using voice recognition software. It may contain grammatical, syntax or spelling errors.Any formal questions or concerns about the content, text or information contained within the body of this dictation should be directly addressed to the provider for clarification. [facility] [place] Procedure Codes (Charges) Pulmonary/Thoracic Procedure 1: Pulmonary and Thoracic: 98422 Dx bronchoscopy/BAL Procedure 2: Pulmonary and Thoracic: 54199 Bronchoscopy w/ transbronchial lung bx Sedation/Anesthesia Procedure 1: Sedation/Anesthesia: 70037 Mod Sedation by the same physician;Init15 Min Child Age 5 & Up
[2025-05-02] MEDS: MIDAZOLAM HCL 5 MG/ML 2ML VIAL ONE (12:33)
--- NOTE | 2025-05-02 13:05 | XRay Report ---
XR chest 1V portable CLINICAL HISTORY: Post Bronchoscopy COMPARISON STUDY: 05/01/2025 FINDINGS: Stable mild cardiomegaly without pulmonary vascular congestion. There is increased patchy o pacity in the lung bases, right greater than left. No pleural effusion or pneumothorax. IMPRESSION: 1. No pneumothorax. 2. Otherwise as described. ACT 112: Negative or not required by law. Electronically signed by: Tano Díaz M.D. 05/02/2025 1:03 PM
--- NOTE | 2025-05-02 13:11 | Hospitalist Progress Note ---
Date of Service May 02, 2025 Assessment & Plan (1) SOB (shortness of breath): Plan: 80-year-old male with past medical history significant for asthma, COPD, bronchiectasis, chronic IgG deficiency, history of TB, history of B-cell CLL, hyperlipidemia, GERD, BPH, CKD stage III who was recently in the hospital and treated for bilateral pneumonia and also there was some question of TKI induced pneumonitis and treated with steroids and discharged home on 04/15/2025 comes back with shortness of breath. There is a plan for bronchoscopy tomorrow by the pulmonary. Patient was in the ER yesterday but went home and again was feeling short of breath and advised by pulmonary to come back to hospital. Having cough. Sometimes bring phlegm's. Denies any headache. No runny nose or sore throat. Appetite is okay. Sometimes he gets chest pain. Currently no chest pain. No nausea. No abdominal pain. No rash. Normal bowel and bladder movements. Ambulates okay. Hemodynamics okay. Uses oxygen while sleeping. Multifocal pneumonia--POA H/O Asthma-COPD overlap syndrome Bronchiectasis Rhinovirus infection Acute hypoxic respiratory failure secondary to above Pulmonary nodule H/O tuberculosis, chronic IgG deficiency, CLL H/O MAC and Achromobacter --Chest CT: Diffuse bilateral airspace opacities are most consistent with multifocal pneumonia. Overall these have improved since the prior study. Emphysema is noted. Mediastinal lymph nodes measure up to 1.1 cm. This could be infectious, inflammatory or neoplastic. Pulmonary nodules measure up to 7 mm. --BioFire positive for rhinovirus --Procalcitonin 0.20 --Bronchial cultures pending --S/P bronchoscopy on 04/2725 --Continue Zosyn, Solu-Medrol --Continue home inhalers --Appreciate pulmonary input Thrombocytopenia Anemia of chronic disease No acute bleeding issues Monitor CBC History of CLL Chronic IV IgG deficiency Gets IVIG as outpatient every 28 days. Will hold Calquence for now BPH On finasteride Monitor for urinary retention DVT Px: SCDs for now Re: Procedure, thrombocytopenia CODE STATUS Full code Admission and Anticipated Discharge Date Admission Date: May 01, 2025 Subjective Patient is seen and examined at bedside Less dyspnea today Still has cough with some expectoration Denies any chest pain, nausea, vomiting, abdominal pain Plan for bronchoscopy today Discussed with pulmonology today Review of Systems Review of Systems: All systems reviewed & are unremarkable except as noted in Subjective Physical Exam Physical Exam: Physical Exam: Vitals signs as noted above General Appearance:Thin, frail, elderly, no apparent distress Head: normocephalic, Atraumatic Eyes: normal inspection, EOMI Neck: supple, Trachea midline Respiratory/Chest:Decreased breath sounds, +basal crackles, No accessory muscle use Cardiovascular: S1, S2, No murmur Abdomen/GI:Soft, Non tender, Bowel sounds present Extremities/Musculoskeletal:normal inspection, no edema Neurologic/Psych:AAOX3, grossly no focal neurological deficits Skin: normal color, warm Results & Data Results & Data Vital Signs (Past 12 Hours) Vital Signs Temp Pulse Pulse Resp BP BP Pulse Ox 05/02/25 12:51 87 23 92 05/02/25 12:50 131/55 L 05/02/25 12:48 87 21 93 05/02/25 12:46 112/63 05/02/25 12:44 120/55 L 05/02/25 12:42 126/52 L 05/02/25 12:39 86 20 93 05/02/25 12:38 131/57 L 05/02/25 12:36 90 21 94 05/02/25 12:34 122/60 05/02/25 12:33 88 21 91 05/02/25 12:32 118/58 L 05/02/25 12:26 119/63 05/02/25 12:22 145/59 H 05/02/25 12:16 131/62 05/02/25 12:15 85 25 H 90 05/02/25 12:14 135/64 05/02/25 12:06 136/65 05/02/25 12:04 132/65 05/02/25 12:00 82 10 L 95 05/02/25 11:58 139/73 05/02/25 11:56 142/66 H 05/02/25 11:50 136/64 05/02/25 11:45 119/63 05/02/25 11:40 125/58 L 05/02/25 11:30 123/65 05/02/25 11:30 82 23 95 05/02/25 11:23 36.5 C 83 18 109/61 95 05/02/25 10:32 73 18 93 05/02/25 08:59 05/02/25 08:08 36.4 C L 62 20 120/62 92 05/02/25 07:44 65 16 93 05/02/25 07:04 65 05/02/25 02:48 73 05/02/25 02:43 36.5 C 68 18 121/59 L 94 O2 Del Method O2 Flow Rate 05/02/25 12:51 05/02/25 12:50 05/02/25 12:48 05/02/25 12:46 05/02/25 12:44 05/02/25 12:42 05/02/25 12:39 05/02/25 12:38 05/02/25 12:36 05/02/25 12:34 05/02/25 12:33 05/02/25 12:32 05/02/25 12:26 05/02/25 12:22 05/02/25 12:16 05/02/25 12:15 05/02/25 12:14 05/02/25 12:06 05/02/25 12:04 05/02/25 12:00 05/02/25 11:58 05/02/25 11:56 05/02/25 11:50 05/02/25 11:45 05/02/25 11:40 05/02/25 11:30 05/02/25 11:30 05/02/25 11:23 Nasal Cannula 3 05/02/25 10:32 Nasal Cannula 2 05/02/25 08:59 Nasal Cannula 3 05/02/25 08:08 Nasal Cannula 3 05/02/25 07:44 Nasal Cannula 2 05/02/25 07:04 05/02/25 02:48 05/02/25 02:43 Nasal Cannula 3 Laboratory Results Short CBC 05/01/25 05/02/25 Range/Units 18:23 05:19 WBC 22.10 H 14.26 H (4.8-10.8) K/ul Hgb 10.9 L 10.1 L (14.0-18.0) g/dl Hct 33.2 L 29.9 L (42.0-52.0) % Plt Count 109 L 86 L (130-400) K/uL BMP 05/01/25 05/02/25 18:23 05:19 Sodium 138 140 Potassium 4.1 4.1 Chloride 106 109 H Carbon Dioxide 25 25 BUN 26 H 25 H Creatinine 1.24 1.10 Glucose 112 H 172 H Calcium 10.3 9.6
[2025-05-02 14:21] LABS: Eosinophil Body Fluid Man 2 %; Fluid Mono/Macrophage 5 %; Lymphocyte Body Fluid Man 43 %; Neutrophil Body Fluid Man 50 %
[2025-05-03 08:09] LABS: Hematocrit (blood only) 31.2 % (42.0-52.0); Hemoglobin 10.0 g/dl (14.0-18.0); Mean Corpuscular Hemoglobin 31.4 pg (25.0-34.0); Mean Corpuscular Volume 98.1 fL (80.0-100.0); Platelet Count 92 K/uL (130-400); RDW Standard Deviation 54.4 fL (36.4-46.3); Red Blood Count 3.18 M/uL (4.70-6.10); White Blood Count 25.22 K/ul (4.8-10.8)
[2025-05-03 08:35] LABS: Anion Gap 5.0 (3-11); Blood Urea Nitrogen 28.0 mg/dl (6-23); Calcium 10.0 mg/dl (8.6-10.3); Carbon Dioxide 27.0 mmol/L (21-32); Chloride 108.0 mmol/L (98-107); Creatinine Clr Calc Pharmacy 40.3 ml/min; Glucose 105.0 mg/dl (70-99(Fasting)); Potassium 3.9 mmol/L (3.5-5.1); Sodium 140.0 mmol/L (136-145)
--- NOTE | 2025-05-03 13:01 | Pulmonology Progress Note ---
Date of Service May 03, 2025 Assessment & Plan (1) SOB (shortness of breath): (2) Asthma-COPD overlap syndrome: (3) Bilateral pneumonia: (4) Acute hypoxemic respiratory failure: (5) CLL (chronic lymphocytic leukemia): (6) Abnormal chest CT: (7) Bronchiectasis: Plan 80-year-old male admitted to the hospital for shortness of breath Past medical history: BPH, GERD, CLL, history of TB in 1968 s/p treatment, diagnosed asthma in the 40s currently on Breo, MDR Achromobactor s/p treatment PFT 10/26/2023 personally reviewed: No obstructive lung dysfunction, insignificant bronchodilator response, normal TLC, mild decrease in DLCO (Increase in FVC by 200 mL, increase in FEV1 by 320 mL, increase in DLCO 43--> 61% compared to 11/28) FVC 3.99 L 97%, FEV1 2.91 L 98%, FEV1/FVC 73%, ERV 130%, RV 94%, TLC 86%, RV/TLC-5%, DLCO 61%, DLCO/VA 81% CT chest 05/01/2025 personally reviewed: Patchy consolidative opacities appreciated bilaterally in the right middle, right lower as well as left lower lobe Overall significant improvement in the patchy opacities, mild worsening in the right upper lobe perifissural Significant mediastinal lymphadenopathy which is chronic -- Acute hypoxic respiratory failure Secondary to multifocal pneumonia Overall the CT scan of the chest done 05/01/2025 shows improvement in the bilateral lower lobe and middle lobe opacities Mild patchy new groundglass opacity in the right upper lobe perifissural. Respiratory BioFire negative for entero-/rhinovirus on 05/01/2025, he was positive for the same even on 12/05/2024 as well as 04/08/2025 Procalcitonin negative on admission. Will repeat today. --Asthma-COPD overlap syndrome Patient was diagnosed in his late 40s He did have symptoms in the child but he was never diagnosed officially with it Does have seasonal allergies Non smoker Not in exacerbation On Breo 200 at home. Continue inpatient. -- Bronchiectasis and chronic IgG deficiency Sputum culture in outside facility grew Achromobacter denitrificans. Multi drug resistance pattern-- Sensitive to: Zosyn, Amikacin, Gentamicin, imipenem, tobramycin , Completed the course of IV Zosyn 11/27/2021 LULI grew on sputum 11/16/21 only one sample, Not on treatment Patient does have mediastinal lymphadenopathy from before most like from underlying CML Autoimmune workup 08/11/2023 negative for everything, complements within normal limit Hospitalizations from August 2023 showed diffuse groundglass opacities bilaterally, respiratory bio fire was negative for everything at that time. He was given steroids as well as antibiotics and he did find significant benefit. HRCT December 2023 showed No significant reticular markings, groundglass opacities resolved Pulmonary toxicity/pneumonitis from TKI could be in the differential. I discussed this with Dr. Carlos Pierre, plan was if in future he gets similar problems then need to stop the medication For bronchiectasis continue with Mucinex and Flutter valve whenever he has chest congestion HRCT 12/26/2023 personally reviewed: Linear scarring of the left upper lobe No increased reticular markings or honeycombing Mediastinal lymphadenopathy persists --History of TB Diagnosed 1969 s/p treatment with isoniazid and streptomycin Patient does have some residual scarring in the left upper lobe which could be from history of TB --Chronic IgG deficiency Gets infusion every 28 days --Hx of CLL Follows up with Dr. Pierre Started on Acalabrutinib 02/2022 (Calquence) Plan: Bronchoscopy 05/02/25 with micro and studies pending. Will consult [facility] ID regarding 04/13/25 sputum cultures with aspergillus and need to consider treatment. Admission and Anticipated Discharge Date Admission Date: May 01, 2025 Subjective "I am feeling better today." Patient underwent bronchoscopy on 05/02/25 studies and cultures pending. Patient had noted aspergillus fumigatus in sputum on 04/13/2025. eelusioner ID consulted given patient's continued episodes of respiratory failure if Aspergillus treatment should be considered. Patient on 1L NC with SpO2 96%. Review of Systems 2 Review of Systems: All systems reviewed & are unremarkable except as noted in HPI & below Physical Exam 2 Physical Exam: VITALS: Reviewed. WEIGHT/BMI reviewed. GEN: Age appearing, well-developed, NAD. PSYCH: Good Judgment. AOx3. Normal memory, mood, and affect. HEENT -Head: NC/AT; -Eyes: PERRL, EOMI. No discharge or redn ess; -Ears: External ears are normal. -Nose: Normal nares. NECK: Supple, with no masses. CV: RRR, no m/r/g. LUNGS: CTAB, no w/r/c. ABD: Soft, NT/ND, NBS, no masses or organomegaly. : N/A SKIN: Warm, well perfused. No skin rashes or abnormal lesions. MSK: No deformities, Normal gait. EXT: No clubbing, cyanosis, or edema. NEURO: Normal muscle strength and tone. No focal deficits. Results & Data Results & Data Vital Signs (Past 12 Hours) Vital Signs Temp Pulse Resp BP Pulse Ox O2 Del Method O2 Flow Rate 05/03/25 12:23 70 18 104/54 L 95 Nasal Cannula 1 05/03/25 10:56 88 18 97 Nasal Cannula 1 05/03/25 09:30 Nasal Cannula 2 05/03/25 07:11 90 18 96 Nasal Cannula 2 05/03/25 02:56 36.3 C L 62 18 107/49 L 98 Nasal Cannula 1 Laboratory Results Abnormal Lab Results 05/02/25 05/03/25 12:00 07:45 WBC 25.22 H RBC 3.18 L Hgb 10.0 L Hct 31.2 L MCV 98.1 MCH 31.4 MCHC 32.1 RDW Std Deviation 54.4 H RDW Coeff of [place] 15.0 H Plt Count 92 L MPV 10.9 Sodium 140 Potassium 3.9 Chloride 108 H Carbon Dioxide 27 Anion Gap 5 BUN 28 H Creatinine 1.30 Est Cr Clr Drug Dosing 40.3 eGFR 55.53 BUN/Creatinine Ratio 21.5 H Glucose 105 H Calcium 10.0 Fluid Neutrophils % 50 Fluid Lymphocytes % 43 Fluid Eosinophils % 2 Fl Monocyt/Macrophag % 5 Fluid Comment A. galactomannan Ag Cancelled A. galactomannan Ag Idx Cancelled Miscellaneous Test 3 Cancelled 05/03/25 07:45 05/03/25 07:45 Diagnostic Findings No recent imaging. PG Care Time/CCT Total # of Minutes Spent Total Time Spent with Patient: Total time spent is greater than 50% in coordination of care (as documented) at patient's floor/unit and/or counseling patient: Coding Level of Care Code 55746 SUB INP/OBS CARE 2/35MIN Diagnoses SOB (shortness of breath) R06.02 Asthma-COPD overlap syndrome J44.89 Bilateral pneumonia J18.9 Acute hypoxemic respiratory failure J96.01 CLL (chronic lymphocytic leukemia) C91.[address] R93.89 Bronchiectasis J47.9
--- NOTE | 2025-05-03 14:24 | Hospitalist Progress Note ---
Date of Service May 03, 2025 Assessment & Plan (1) SOB (shortness of breath): Plan: 80-year-old male with past medical history significant for asthma, COPD, bronchiectasis, chronic IgG deficiency, history of TB, history of B-cell CLL, hyperlipidemia, GERD, BPH, CKD stage III who was recently in the hospital and treated for bilateral pneumonia and also there was some question of TKI induced pneumonitis and treated with steroids and discharged home on 04/15/2025 comes back with shortness of breath. There is a plan for bronchoscopy tomorrow by the pulmonary. Patient was in the ER yesterday but went home and again was feeling short of breath and advised by pulmonary to come back to hospital. Having cough. Sometimes bring phlegm's. Denies any headache. No runny nose or sore throat. Appetite is okay. Sometimes he gets chest pain. Currently no chest pain. No nausea. No abdominal pain. No rash. Normal bowel and bladder movements. Ambulates okay. Hemodynamics okay. Uses oxygen while sleeping. Multifocal pneumonia--POA H/O Asthma-COPD overlap syndrome Bronchiectasis Rhinovirus infection Acute hypoxic respiratory failure secondary to above Pulmonary nodule H/O tuberculosis, chronic IgG deficiency, CLL H/O MAC and Achromobacter --Chest CT: Diffuse bilateral airspace opacities are most consistent with multifocal pneumonia. Overall these have improved since the prior study. Emphysema is noted. Mediastinal lymph nodes measure up to 1.1 cm. This could be infectious, inflammatory or neoplastic. Pulmonary nodules measure up to 7 mm. --BioFire positive for rhinovirus --Procalcitonin 0.20 --Bronchial cultures pending --S/P bronchoscopy on 04/2725 --Continue Zosyn, Solu-Medrol --Continue home inhalers --Appreciate pulmonary input -- ID consult pending -- Saturating well on 1 L supplemental oxygen, wean as able to room air Thrombocytopenia Anemia of chronic disease No acute bleeding issues Monitor CBC Platelet count stable History of CLL Chronic IV IgG deficiency Gets IVIG as outpatient every 28 days. Will hold Calquence for now Persistent leukocytosis (lymphocytosis, monocytosis) likely due to CLL BPH On finasteride Monitor for urinary retention Severe malnutrition Dietitian consulted DVT Px: SCDs for now Re: Procedure, thrombocytopenia CODE STATUS Full code Admission and Anticipated Discharge Date Admission Date: May 01, 2025 Subjective Patient is seen and examined at bedside States feeling better today Sitting in chair during my encounter Less dyspnea, cough today No new complaints Denies any chest pain, nausea, vomiting, abdominal pain Saturating well on minimal supplemental oxygen Review of Systems Review of Systems: All systems reviewed & are unremarkable except as noted in Subjective Physical Exam Physical Exam: Physical Exam: Vitals signs as noted above General Appearance:Thin, frail, elderly, no apparent distress Head: normocephalic, Atraumatic Eyes: normal inspection, EOMI Neck: supple, Trachea midline Respiratory/Chest:Decreased breath sounds, +basal crackles, No accessory muscle use Cardiovascular: S1, S2, No murmur Abdomen/GI:Soft, Non tender, Bowel sounds present Extremities/Musculoskeletal:normal inspection, no edema Neurologic/Psych:AAOX3, grossly no focal neurological deficits Skin: normal color, warm Results & Data Results & Data Vital Signs (Past 12 Hours) Vital Signs Temp Pulse Resp BP Pulse Ox O2 Del Method O2 Flow Rate 05/03/25 12:23 70 18 104/54 L 95 Nasal Cannula 1 05/03/25 10:56 88 18 97 Nasal Cannula 1 05/03/25 09:30 Nasal Cannula 2 05/03/25 07:11 90 18 96 Nasal Cannula 2 05/03/25 02:56 36.3 C L 62 18 107/49 L 98 Nasal Cannula 1 Laboratory Results Short CBC 05/03/25 Range/Units 07:45 WBC 25.22 H (4.8-10.8) K/ul Hgb 10.0 L (14.0-18.0) g/dl Hct 31.2 L (42.0-52.0) % Plt Count 92 L (130-400) K/uL BMP 05/03/25 07:45 Sodium 140 Potassium 3.9 Chloride 108 H Carbon Dioxide 27 BUN 28 H Creatinine 1.30 Glucose 105 H Calcium 10.0
[2025-05-04 06:57] LABS: Hematocrit (blood only) 27.4 % (42.0-52.0); Hemoglobin 9.2 g/dl (14.0-18.0); Mean Corpuscular Hemoglobin 32.4 pg (25.0-34.0); Mean Corpuscular Volume 96.5 fL (80.0-100.0); Platelet Count 81 K/uL (130-400); RDW Standard Deviation 53.2 fL (36.4-46.3); Red Blood Count 2.84 M/uL (4.70-6.10); White Blood Count 22.87 K/ul (4.8-10.8)
[2025-05-04 07:38] LABS: Anion Gap 5.0 (3-11); Blood Urea Nitrogen 33.0 mg/dl (6-23); Calcium 9.7 mg/dl (8.6-10.3); Carbon Dioxide 27.0 mmol/L (21-32); Chloride 109.0 mmol/L (98-107); Creatinine Clr Calc Pharmacy 38.0 ml/min; Glucose 101.0 mg/dl (70-99(Fasting)); Magnesium 2.0 mg/dl (1.7-2.4); Potassium 4.0 mmol/L (3.5-5.1); Sodium 141.0 mmol/L (136-145)
[2025-05-04] MEDS: predniSONE 20 MG TAB PO SCH (09:03)
--- NOTE | 2025-05-04 12:57 | Pulmonology Progress Note ---
Date of Service May 04, 2025 Assessment & Plan (1) SOB (shortness of breath): (2) Asthma-COPD overlap syndrome: (3) Bilateral pneumonia: (4) Acute hypoxemic respiratory failure: (5) CLL (chronic lymphocytic leukemia): (6) Abnormal chest CT: (7) Bronchiectasis: Plan 80-year-old male admitted to the hospital for shortness of breath Past medical history: BPH, GERD, CLL, history of TB in 1968 s/p treatment, diagnosed asthma in the 40s currently on Breo, MDR Achromobactor s/p treatment PFT 10/26/2023 personally reviewed: No obstructive lung dysfunction, insignificant bronchodilator response, normal TLC, mild decrease in DLCO (Increase in FVC by 200 mL, increase in FEV1 by 320 mL, increase in DLCO 43--> 61% compared to 11/28) FVC 3.99 L 97%, FEV1 2.91 L 98%, FEV1/FVC 73%, ERV 130%, RV 94%, TLC 86%, RV/TLC-5%, DLCO 61%, DLCO/VA 81% CT chest 05/01/2025 personally reviewed: Patchy consolidative opacities appreciated bilaterally in the right middle, right lower as well as left lower lobe Overall significant improvement in the patchy opacities, mild worsening in the right upper lobe perifissural Significant mediastinal lymphadenopathy which is chronic -- Acute hypoxic respiratory failure Secondary to multifocal pneumonia Overall the CT scan of the chest done 05/01/2025 shows improvement in the bilateral lower lobe and middle lobe opacities Mild patchy new groundglass opacity in the right upper lobe perifissural. Respiratory BioFire negative for entero-/rhinovirus on 05/01/2025, he was positive for the same even on 12/05/2024 as well as 04/08/2025 Procalcitonin negative on admission and on repeat 05/03/2025. --Asthma-COPD overlap syndrome Patient was diagnosed in his late 40s He did have symptoms in the child but he was never diagnosed officially with it Does have seasonal allergies Non smoker Not in exacerbation On Breo 200 at home. Continue inpatient. -- Bronchiectasis and chronic IgG deficiency Sputum culture in outside facility grew Achromobacter denitrificans. Multi drug resistance pattern-- Sensitive to: Zosyn, Amikacin, Gentamicin, imipenem, tobramycin , Completed the course of IV Zosyn 11/27/2021 LULI grew on sputum 11/16/21 only one sample, Not on treatment Patient does have mediastinal lymphadenopathy from before most like from underlying CML Autoimmune workup 08/11/2023 negative for everything, complements within normal limit Hospitalizations from August 2023 showed diffuse groundglass opacities bilaterally, respiratory bio fire was negative for everything at that time. He was given steroids as well as antibiotics and he did find significant benefit. HRCT December 2023 showed No significant reticular markings, groundglass opacities resolved Pulmonary toxicity/pneumonitis from TKI could be in the differential. I discussed this with Dr. Carlos Pierre, plan was if in future he gets similar problems then need to stop the medication For bronchiectasis continue with Mucinex and Flutter valve whenever he has chest congestion HRCT 12/26/2023 personally reviewed: Linear scarring of the left upper lobe No increased reticular markings or honeycombing Mediastinal lymphadenopathy persists --History of TB Diagnosed 1969 s/p treatment with isoniazid and streptomycin Patient does have some residual scarring in the left upper lobe which could be from history of TB --Chronic IgG deficiency Gets infusion every 28 days --Hx of CLL Follows up with Dr. Pierre Started on Acalabrutinib 02/2022 (Calquence) Plan: Bronchoscopy 05/02/25 with micro and studies pending. Will consult Wilfredo REID regarding 04/13/25 sputum cultures with aspergillus and need to consider treatment. Admission and Anticipated Discharge Date Admission Date: May 01, 2025 Subjective Patient on room air this am. Bronch studies still pending. [facility] ID consulted for consideration of fungal coverage for sputum with Aspergillus Fumigatus on 04/13/2025 and frequent admissions for recurrent pneumonia in setting of immunocompromised state. Review of Systems 2 Review of Systems: All systems reviewed & are unremarkable except as noted in HPI & below Physical Exam 2 Physical Exam: VITALS: Reviewed. WEIGHT/BMI reviewed. GEN: Age appearing, well-developed, NAD. PSYCH: Good Judgment. AOx3. Normal memory, mood, and affect. HEENT -Head: NC/AT; -Eyes: PERRL, EOMI. No discharge or redn ess; -Ears: External ears are normal. -Nose: Normal nares. NECK: Supple, with no masses. CV: RRR, no m/r/g. LUNGS: CTAB, no w/r/c. ABD: Soft, NT/ND, NBS, no masses or organomegaly. : N/A SKIN: Warm, well perfused. No skin rashes or abnormal lesions. MSK: No deformities, Normal gait. EXT: No clubbing, cyanosis, or edema. NEURO: Normal muscle strength and tone. No focal deficits. Results & Data Results & Data Vital Signs (Past 12 Hours) Vital Signs Temp Pulse Pulse Resp BP BP Pulse Ox 05/04/25 11:58 36.7 C 66 20 118/56 L 94 05/04/25 11:21 65 15 95 05/04/25 09:22 66 05/04/25 08:27 36.6 C 78 20 133/72 95 05/04/25 07:26 61 16 95 05/04/25 03:12 36.5 C 67 18 131/58 L 93 O2 Del Method FiO2 05/04/25 11:58 Room Air 05/04/25 11:21 Room Air 21 05/04/25 09:22 05/04/25 08:27 Room Air 05/04/25 07:26 Room Air 05/04/25 03:12 Room Air Laboratory Results 05/04/25 06:32 05/04/25 06:32 Abnormal Lab Results 05/03/25 05/04/25 14:51 06:32 WBC 22.87 H RBC 2.84 L Hgb 9.2 L Hct 27.4 L MCV 96.5 MCH 32.4 MCHC 33.6 RDW Std Deviation 53.2 H RDW Coeff of [place] 15.1 H Plt Count 81 L MPV 11.4 Sodium 141 Potassium 4.0 Chloride 109 H Carbon Dioxide 27 Anion Gap 5 BUN 33 H Creatinine 1.38 Est Cr Clr Drug Dosing 38.0 eGFR 51.69 BUN/Creatinine Ratio 23.9 H Glucose 101 H Calcium 9.7 Magnesium 2.0 Procalcitonin 0.09 Diagnostic Findings No recent imaging. PG Care Time/CCT Total # of Minutes Spent Total Time Spent with Patient: Total time spent is greater than 50% in coordination of care (as documented) at patient's floor/unit and/or counseling patient: Coding Level of Care Code 38549 SUB INP/OBS CARE 2/35MIN Diagnoses SOB (shortness of breath) R06.02 Asthma-COPD overlap syndrome J44.89 Bilateral pneumonia J18.9 Acute hypoxemic respiratory failure J96.01 CLL (chronic lymphocytic leukemia) C91.[address] R93.89 Bronchiectasis J47.9
--- NOTE | 2025-05-04 14:46 | Infectious Disease Consult ---
Date of Service May 04, 2025 Telehealth Information I performed this visit using a real-time telehealth connection between my location and the patients location ([facility]). After connecting through interactive tele-video, patient was identified by name and date of and/or wristband check.Patient (or authorized healthcare operations representative) was informed that this was a telemedicine visit and it was being conducted confidentially over secure lines. My office door was closed and no one else was present in the room with me.Patient (or authorized healthcare operations representative) provided consent to proceed with the visit, expressed an understanding of privacy and security of the telemedicine visit, and gave permission to have a hospital operations representative in the room in order to assist with the visit and to conduct portions of the visit, as needed. I informed the patient (or authorized healthcare operations representative) that I reviewed their record and presented the opportunity for them to ask any questions regarding the visit today. The patient agreed to participate. 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 - ID signing off He has new onset fatigue and sob on 04/30/25. It is difficult to rely on coughing as a symptom for pertussis for this patient has he has chronic, intermittent coughs given his underlying lung disease. If we consider 04/30/25 as the date of symptom onset, the patient will likely benefit from a shourt course fo azithromycin for possible pertussis. PEP for pertussis is indicated for all household contacts of the confirmed pertussis case and for individuals at high risk of developing severe disease, such as infancts, women (especially in the third trimester), immunocompromised persons, and those who will have close contact with high-risk individuals. PEP should be administered regardless of immunization status and is most effectie when given w/in 14-21 days of exposure. PEP options include: ecommended regimens are: Azithromycin: 5 days (10 mg/kg on day 1, then 5 mg/kg on days 25 for children; 500 mg on day 1, then 250 mg on days 25 for adults) Clarithromycin: 7 days (15 mg/kg/day in 2 divided doses for children; 500 mg twice daily for adults) Erythromycin: 14 days (4050 mg/kg/day in 4 divided doses for children; 2 g/day in 4 divided doses for adults) Trimethoprim-sulfamethoxazole: 14 days (8 mg/kg/day trimethoprim and 40 mg/kg/day sulfamethoxazole in 2 divided doses for children; 160 mg/800 mg twice daily for adults). During this patient encounter, one or more of the following was provided in addition to my in person visit: disease transmission risk assessment and mitigation; public health investigation, analysis, and testing; and/or complex antimicrobial therapy counseling and treatment. 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 The patient is very active at baseline: I was able to do 50 push-ups per year at my 80ths birthday. No obvious fever but low grade temp of 37.3C noted on presentation. CT chest showed diffuse bilateral airspace opacities but improved compared to prior study. He had bronchoscopy (05/02). The patient is currently on zosyn. He is feeling better overall. He is breathing better: he no longer requires O2 supplement since yesterday afternoon. He always has intermittent coughs (mostly dry) chronically: this has not changed prior to and during this admission. He feels well and wants to go home. Allergies Allergy/AdvReac Type Severity Reaction Status Date / Time rofecoxib Allergy Intermediate RASH,SWELLING, Verified 05/01/25 19:18 UNSTEADY GAIT/STUMBLING lamotrigine [From Lamictal] AdvReac Mild cannot Verified 05/01/25 19:18 think straight, stumbling and falling. meperidine AdvReac Mild Vomiting Verified 05/01/25 19:18 Home Medications Medication Instructions Recorded Confirmed Type Flutter Valve #1 ea 11/29/21 04/30/25 Rx omega-3 fatty acids 1,000 mg 1,000 mg PO QAM 06/06/22 05/01/25 History capsule fluticasone propionate 50 2 spray intranasal BID 06/27/23 05/01/25 History mcg/actuation nasal spray,suspension (Allergy Relief (fluticasone)) finasteride 5 mg tablet 5 mg PO QAM 11/07/23 05/01/25 History fluticasone furoate 200 1 inh inhalation QAM 12/05/24 05/01/25 History mcg-vilanterol 25 mcg/dose inhalation powder (Breo Ellipta) acalabrutinib maleate 100 mg 100 mg PO AMHS 04/08/25 05/01/25 History tablet (Calquence (acalabrutinib maleate)) dextromethorphan-guaifenesin ER 60 1 tab PO AMHS 04/08/25 05/01/25 History mg-1,200 mg tab,extend release,12hr (Mucinex DM) guar gum 1 packet PO QAM 04/08/25 05/01/25 History immune glob,gamm(IgG) 10 %-pro-IgA 40 g IV MONTHLY 04/08/25 05/01/25 History 0 to 50 mcg/mL intravenous solution (Privigen) levalbuterol HCl 1.25 mg/3 mL 1.25 mg inhalation QPM PRN 04/08/25 05/01/25 History solution for nebulization shortness of breath loratadine 10 mg capsule 10 mg PO QAM 04/08/25 05/01/25 History melatonin 10 mg tablet 10 mg PO HS 04/08/25 05/01/25 History bjemwzjdiwkn-tig-inwkn acid-vit 1 tab PO QAM 04/08/25 05/01/25 History K-lycop 400 mcg-20 mcg-370 mcg tablet (Men's 50 Plus Multivitamin) sodium chloride 0.65 % nasal spray 1 spray intranasal UD PRN 04/08/25 05/01/25 History aerosol (Saline Nasal) Congestion L.acidop,casei,lactis,rham-B.lact,danial 1 cap PO DAILY 04/30/25 05/01/25 History 625 mg (10 billion cell) capsule (Advanced Probiotic) vitamin A-vitamin C-vit E-min 1 tab PO BID 04/30/25 05/01/25 History tablet Patient History Medical History Chronic cough Sensorineural hearing loss (SNHL) of both ears Chronic maxillary sinusitis History of pneumonia d/c [facility] 12/07/24 Nausea and vomiting after administration of anesthetic agent after inguinal hernia repair, years ago; no issues since then Acute hypoxemic respiratory failure hx 2022, "with severe infection" History of anemia Vasovagal reaction hx, recently when in ENT dr's office ~12/2024, "occurs usually with sudden severe pain" History of epilepsy last seizure ~2018 History of dyspnea "at times" CLL (chronic lymphocytic leukemia) currently on calquence 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, hospitalized for 3 months, abx "for years" Asthma inh and neb BPH (benign prostatic hyperplasia) Surgical History S/p bilateral myringotomy with tube placement Hx of colonoscopy Hx of right inguinal hernia repair History of prostate surgery [facility] surgery History of tonsillectomy and adenoidectomy H/O vasectomy [place] teeth removed S/P TURP 2018 History of bronchoscopy (2021) [facility] Social History Smoking Status: Former smoker Tobacco Type: Cigarettes Second Hand Exposure: No; Do You Dip or Chew Tobacco: No; Tobacco Cessation Education Requested by Patient: No Hx Alcohol Use: No Hx Substance Use: No Preferred Language: Japanese Communication Ability: Effective Patient Monitor Required: No Beliefs That Will Affect Care: None Current Living Situation: Spouse Current Living Situation Comment: 2 story home Other Information That Helps Us Care for You: No Feels Safe at Home: Yes Safety Concerns: Feels Safe At This Time Assistive Devices: Oxygen - Continuous Review of Systems as HPI and all others negative Physical Exam Gen:no acute distress Lungs: breathing comfortably on room air, no use of accessory muscles Neuro: Alert, awak and oriented x3. Results & Data Vital Signs (Past 12 Hours) Vital Signs Temp Pulse Pulse Resp BP BP Pulse Ox 05/04/25 11:58 36.7 C 66 20 118/56 L 94 05/04/25 11:21 65 15 95 05/04/25 09:22 66 05/04/25 08:27 36.6 C 78 20 133/72 95 05/04/25 07:26 61 16 95 05/04/25 03:12 36.5 C 67 18 131/58 L 93 O2 Del Method FiO2 05/04/25 11:58 Room Air 05/04/25 11:21 Room Air 21 05/04/25 09:22 05/04/25 08:27 Room Air 05/04/25 07:26 Room Air 05/04/25 03:12 Room Air Laboratory Results Sputum cx (04/13/25): Aspergillus fumigatus BAL (05/02): normal joyce, AFB neg, no fungal growth so far R lower lobe lung bx (05/02): Bord pertus/bronchisep/paraper, no fungal growth so far Diagnostic Findings CT chest (05/01/25): 1. Diffuse bilateral airspace opacities are most consistent with multifocal pneumonia. Overall these have improved since the prior study. 2. Emphysema is noted. 3. Mediastinal lymph nodes measure up to 1.1 cm. This could be infectious, inflammatory or neoplastic. 4. Pulmonary nodules measure up to 7 mm. Medications Administered zosyn
--- NOTE | 2025-05-04 14:49 | Hospitalist Progress Note ---
Date of Service May 04, 2025 Assessment & Plan (1) SOB (shortness of breath): Plan: 80-year-old male with past medical history significant for asthma, COPD, bronchiectasis, chronic IgG deficiency, history of TB, history of B-cell CLL, hyperlipidemia, GERD, BPH, CKD stage III who was recently in the hospital and treated for bilateral pneumonia and also there was some question of TKI induced pneumonitis and treated with steroids and discharged home on 04/15/2025 comes back with shortness of breath. There is a plan for bronchoscopy tomorrow by the pulmonary. Patient was in the ER yesterday but went home and again was feeling short of breath and advised by pulmonary to come back to hospital. Having cough. Sometimes bring phlegm's. Denies any headache. No runny nose or sore throat. Appetite is okay. Sometimes he gets chest pain. Currently no chest pain. No nausea. No abdominal pain. No rash. Normal bowel and bladder movements. Ambulates okay. Hemodynamics okay. Uses oxygen while sleeping. Multifocal pneumonia--POA H/O Asthma-COPD overlap syndrome Bronchiectasis with questionable Aspergillus infection(sputum Culture on 04/13/25) Rhinovirus infection Acute hypoxic respiratory failure secondary to above Pulmonary nodule H/O tuberculosis, chronic IgG deficiency, CLL H/O MAC and Achromobacter --Chest CT: Diffuse bilateral airspace opacities are most consistent with multifocal pneumonia. Overall these have improved since the prior study. Emphysema is noted. Mediastinal lymph nodes measure up to 1.1 cm. This could be infectious, inflammatory or neoplastic. Pulmonary nodules measure up to 7 mm. --S/P bronchoscopy on 04/2725 and bronchial cultures pending --Continue Zosyn, Solu-Medrol --Continue home inhalers --Appreciate pulmonary input -- ID consult pending --Clinically much better today and saturating normally on room air denies any shortness of breath at rest Thrombocytopenia Anemia of chronic disease No acute bleeding issues Monitor CBC Platelet count stable and remains at lower side at 81 History of CLL Chronic IV IgG deficiency Gets IVIG as outpatient every 28 days. Will hold Calquence for now Persistent leukocytosis (lymphocytosis, monocytosis) likely due to CLL White blood cell count remains elevated at 22.87 compatible with history of CLL and on steroid BPH On finasteride Monitor for urinary retention Severe malnutrition Dietitian consulted DVT Px: SCDs for now Re: Procedure, thrombocytopenia CODE STATUS Full code Admission and Anticipated Discharge Date Admission Date: May 01, 2025 Subjective 05/04/2025 The patient was seen and examined in medical telemetry unit He has been feeling much better following bronchoscopy and with current therapy Does not have any shortness of breath at rest and has been saturating normally on room air Denies any other significant symptoms Review of Systems Review of Systems: All systems reviewed and are unremarkable as noted below Physical Exam Physical Exam: Lying in bed without any acute distress Constitutional: well developed, well nourished, + ill appearing and average body habitus Eyes: PERRL, conjunctivae normal, anicteric sclerae ENMT: external ear and nose normal, oropharynx normal Neck: trachea midline, no thyromegaly Respiratory: no respiratory distress Auscultation: + diminished lung sounds and + crackles (Minimal crackles at the bases has) Cardiovascular: Rate/Rhythm: regular rate and regular rhythm; not tachycardic Heart Sounds: normal S1 and normal S2; no murmur Extremities: no edema Gastrointestinal (Abdomen): Inspection/Auscultation: normal bowel sounds; abdomen not distended Percussion/Palpation: abdomen soft; abdomen nontender Musculoskeletal: No acute arthritis involving any of the joint Neurologic: normal touch/pain/proprioception and moves all extremities; no focal motor deficits Lymphatic: no cervical or axillary lymphadenopathy Results & Data Results & Data Vital Signs (Past 12 Hours) Vital Signs Temp Pulse Pulse Resp BP BP Pulse Ox 05/04/25 11:58 36.7 C 66 20 118/56 L 94 05/04/25 11:21 65 15 95 05/04/25 09:22 66 05/04/25 08:27 36.6 C 78 20 133/72 95 05/04/25 07:26 61 16 95 05/04/25 03:12 36.5 C 67 18 131/58 L 93 O2 Del Method FiO2 05/04/25 11:58 Room Air 05/04/25 11:21 Room Air 21 05/04/25 09:22 05/04/25 08:27 Room Air 05/04/25 07:26 Room Air 05/04/25 03:12 Room Air Laboratory Results Short CBC 05/04/25 Range/Units 06:32 WBC 22.87 H (4.8-10.8) K/ul Hgb 9.2 L (14.0-18.0) g/dl Hct 27.4 L (42.0-52.0) % Plt Count 81 L (130-400) K/uL [facility] 05/04/25 06:32 Sodium 141 Potassium 4.0 Chloride 109 H Carbon Dioxide 27 BUN 33 H Creatinine 1.38 Glucose 101 H Calcium 9.7 Medications Administered Current Inpatient Medications Acetaminophen (Acetaminophen 325 Mg Tab) 650 mg PO Q4H PRN PRN Reason: Pain or Fever Stop: 05/31/25 21:51 Finasteride ([facility]asteride 5 Mg Tab) [facility] Stop: 06/01/25 08:59 Last Admin: 05/04/25 09:02 Dose: 5 mg Fluticasone Propionate (Fluticasone Propionate Na Spr 16 Gm Btl) 2 sprays NA BID [facility] Stop: 05/31/25 21:51 Last Admin: 05/04/25 09:02 Dose: 2 sprays Fluticasone/Vilanterol (Fluticasone/Vilanterol 200/25mcg 14 Puffs/Inhaler) 1 puffs [facility] [place] Stop: 06/01/25 08:59 Last Admin: 05/04/25 09:03 Dose: 1 puffs Guaifenesin (Guaifenesin 600 Mg Tabcr) 600 mg PO AMHS PRN PRN Reason: Cough Stop: 05/31/25 22:32 Piperacillin Sod/Tazobactam Sod (Zosyn) 4.5 gm in 100 mls @ 25 mls/hr IV Q8H [facility]; Protocol Stop: 05/09/25 03:59 Last Admin: 05/04/25 12:00 Dose: 25 mls/hr Lactobacillus Acidophilus (Advanced Probiotic 625 Mg Capsule) 1,250 mg PO DAILY [facility] Stop: 06/01/25 08:59 Last Admin: 05/04/25 09:03 Dose: 1,250 mg Levalbuterol HCl (Levalbuterol 1.25 Mg/3 Ml Neb) 1.25 mg NEB Q4H PRN PRN Reason: Shortness Of Breath Or Wheezing Stop: 05/31/25 21:51 Loratadine (Loratadine 10 Mg Tab) 10 mg PO QAM [facility] Stop: 06/01/25 08:59 Last Admin: 05/04/25 09:03 Dose: 10 mg Melatonin (Melatonin 3 Mg Tab) 9 mg PO HS PRN PRN Reason: Sleep Stop: 05/31/25 21:57 Last Admin: 05/01/25 23:34 Dose: 9 mg Multivitamins/Minerals (Cerovite Adv Formula Tab) 1 tab PO QAM [facility] Stop: 06/01/25 08:59 Last Admin: 05/04/25 09:03 Dose: 1 tab Nitroglycerin (Nitroglycerin Sl 0.4 Mg/Tab Tab) 0.4 mg SL Q5M PRN PRN Reason: Chest Pain Stop: 05/31/25 21:51 Prednisone (Prednisone 20 Mg Tab) 40 mg PO DAILY [facility] Stop: 05/06/25 08:59 Last Admin: 05/04/25 09:03 Dose: 40 mg Sodium Chloride (Sodium Chloride 0.65% Na Soln 45 Ml ([place])) 1 sprays NA UD PRN PRN Reason: Congestion Stop: 05/31/25 21:51
[2025-05-04] MEDS: AZITHROMYCIN 250 MG TAB PO ONE (16:23)
[2025-05-05] MEDS: AZITHROMYCIN 250 MG TAB PO SCH (08:35)
--- NOTE | 2025-05-05 15:24 | Hospitalist Progress Note ---
Date of Service May 05, 2025 Assessment & Plan (1) SOB (shortness of breath): Plan: 80-year-old male with past medical history significant for asthma, COPD, bronchiectasis, chronic IgG deficiency, history of TB, history of B-cell CLL, hyperlipidemia, GERD, BPH, CKD stage III who was recently in the hospital and treated for bilateral pneumonia and also there was some question of TKI induced pneumonitis and treated with steroids and discharged home on 04/15/2025 comes back with shortness of breath. There is a plan for bronchoscopy tomorrow by the pulmonary. Patient was in the ER yesterday but went home and again was feeling short of breath and advised by pulmonary to come back to hospital. Having cough. Sometimes bring phlegm's. Denies any headache. No runny nose or sore throat. Appetite is okay. Sometimes he gets chest pain. Currently no chest pain. No nausea. No abdominal pain. No rash. Normal bowel and bladder movements. Ambulates okay. Hemodynamics okay. Uses oxygen while sleeping. Multifocal pneumonia--POA H/O Asthma-COPD overlap syndrome Bronchiectasis with questionable Aspergillus infection(sputum Culture on 04/13/25) Rhinovirus infection Acute hypoxic respiratory failure secondary to above Pulmonary nodule H/O tuberculosis, chronic IgG deficiency, CLL H/O MAC and Achromobacter --Chest CT: Diffuse bilateral airspace opacities are most consistent with multifocal pneumonia. Overall these have improved since the prior study. Emphysema is noted. Mediastinal lymph nodes measure up to 1.1 cm. This could be infectious, inflammatory or neoplastic. Pulmonary nodules measure up to 7 mm. --S/P bronchoscopy on 04/2725 and bronchial cultures pending --Continue Zosyn, Solu-Medrol --Continue home inhalers --Appreciate pulmonary input -- ID consult pending --Clinically much better today and saturating normally on room air denies any shortness of breath at rest Appreciate ID input and recommendationhe may have hooping cough and awaiting for final identification of pertussis group that has been developing in bronchial washing. the infectious disease department and Department of health are involved -If the pertussis is confirmed then the family members will need to get prophylaxis antibiotic and also the nursing staff will need to have prophylaxis antibiotic too He remains stable to be discharged Thrombocytopenia Anemia of chronic disease No acute bleeding issues Monitor CBC Platelet count stable and remains at lower side at 81 History of CLL Chronic IV IgG deficiency Gets IVIG as outpatient every 28 days. Will hold Calquence for now Persistent leukocytosis (lymphocytosis, monocytosis) likely due to CLL White blood cell count remains elevated at 22.87 compatible with history of CLL and on steroid BPH On finasteride Monitor for urinary retention Severe malnutrition Dietitian consulted DVT Px: SCDs for now Re: Procedure, thrombocytopenia CODE STATUS Full code Admission and Anticipated Discharge Date Admission Date: May 01, 2025 Subjective 05/04/2025 The patient was seen and examined in medical telemetry unit He has been feeling much better following bronchoscopy and with current therapy Does not have any shortness of breath at rest and has been saturating normally on room air Denies any other significant symptoms 05/05/2025 The patient was seen and examined in medical telemetry unit He has been stable without any cough and/or phlegm or shortness of breath at rest Remains medically stable to be discharged but awaiting further recommendation from IRLANDA Review of Systems Review of Systems: All systems reviewed and are unremarkable as noted below Physical Exam Physical Exam: Lying in bed without any acute distress Constitutional: well developed, well nourished, + ill appearing and average body habitus Eyes: PERRL, conjunctivae normal, anicteric sclerae ENMT: external ear and nose normal, oropharynx normal Neck: trachea midline, no thyromegaly Respiratory: no respiratory distress Auscultation: + diminished lung sounds and + crackles (Minimal crackles at the bases has) Cardiovascular: Rate/Rhythm: regular rate and regular rhythm; not tachycardic Heart Sounds: normal S1 and normal S2; no murmur Extremities: no edema Gastrointestinal (Abdomen): Inspection/Auscultation: normal bowel sounds; abdomen not distended Percussion/Palpation: abdomen soft; abdomen nontender Neurologic: normal touch/pain/proprioception and moves all extremities; no focal motor deficits Lymphatic: no cervical or axillary lymphadenopathy Results & Data Results & Data Vital Signs (Past 12 Hours) Vital Signs Temp Pulse Pulse Resp BP Pulse Ox O2 Del Method 05/05/25 14:19 36.5 C 66 20 115/63 95 Room Air 05/05/25 13:00 66 05/05/25 10:26 36.3 C L 81 20 113/62 93 Room Air 05/05/25 08:50 Room Air 05/05/25 07:22 36.3 C L 55 L 18 110/63 96 Room Air 05/05/25 05:56 56 L 05/05/25 04:19 36.8 C 65 20 137/66 95 Room Air Medications Administered Current Inpatient Medications Acetaminophen (Acetaminophen 325 Mg Tab) 650 mg PO Q4H PRN PRN Reason: Pain or Fever Stop: 05/31/25 21:51 Azithromycin (Azithromycin 250 Mg Tab) 250 mg PO QAM [facility] Stop: 05/10/25 08:59 Last Admin: 05/05/25 08:35 Dose: 250 mg Finasteride (Finasteride 5 Mg Tab) 5 mg PO QAM [facility] Stop: 06/01/25 08:59 Last Admin: 05/05/25 08:34 Dose: 5 mg Fluticasone Propionate (Fluticasone Propionate Na Spr 16 Gm Btl) 2 sprays NA BID [facility] Stop: 05/31/25 21:51 Last Admin: 05/05/25 08:35 Dose: 2 sprays Fluticasone/Vilanterol (Fluticasone/Vilanterol 200/25mcg 14 Puffs/Inhaler) 1 puffs INH QAM [facility] Stop: 06/01/25 08:59 Last Admin: 05/05/25 08:35 Dose: 1 puffs Guaifenesin (Guaifenesin 600 Mg Tabcr) 600 mg PO AMHS PRN PRN Reason: Cough Stop: 05/31/25 22:32 Lactobacillus Acidophilus (Advanced Probiotic 625 Mg Capsule) 1,250 mg PO DAILY [facility] Stop: 06/01/25 08:59 Last Admin: 05/05/25 08:34 Dose: 1,250 mg Levalbuterol HCl (Levalbuterol 1.25 Mg/3 Ml Neb) 1.25 mg NEB Q4H PRN PRN Reason: Shortness Of Breath Or Wheezing Stop: 05/31/25 21:51 Loratadine (Loratadine 10 Mg Tab) 10 mg PO QAM [facility] Stop: 06/01/25 08:59 Last Admin: 05/05/25 08:34 Dose: 10 mg Melatonin (Melatonin 3 Mg Tab) 9 mg PO HS PRN PRN Reason: Sleep Stop: 05/31/25 21:57 Last Admin: 05/04/25 21:35 Dose: 9 mg Multivitamins/Minerals (Cerovite Adv Formula Tab) 1 tab PO QAM [facility] Stop: 06/01/25 08:59 Last Admin: 05/05/25 08:34 Dose: 1 tab Nitroglycerin (Nitroglycerin Sl 0.4 Mg/Tab Tab) 0.4 mg SL Q5M PRN PRN Reason: Chest Pain Stop: 05/31/25 21:51 Prednisone (Prednisone 20 Mg Tab) 40 mg PO DAILY [facility] Stop: 05/06/25 08:59 Last Admin: 05/05/25 08:34 Dose: 40 mg Sodium Chloride (Sodium Chloride 0.65% Na Soln 45 Ml ([place])) 1 sprays NA UD PRN PRN Reason: Congestion Stop: 05/31/25 21:51
--- NOTE | 2025-05-05 16:34 | Pulmonology Progress Note ---
Date of Service May 05, 2025 Assessment & Plan (1) SOB (shortness of breath): (2) Asthma-COPD overlap syndrome: (3) Bilateral pneumonia: (4) Acute hypoxemic respiratory failure: (5) CLL (chronic lymphocytic leukemia): (6) Abnormal chest CT: (7) Bronchiectasis: Plan 80-year-old male admitted to the hospital for shortness of breath Past medical history: BPH, GERD, CLL, history of TB in 1968 s/p treatment, diagnosed asthma in the 40s currently on Breo, MDR Achromobactor s/p treatment PFT 10/26/2023 personally reviewed: No obstructive lung dysfunction, insignificant bronchodilator response, normal TLC, mild decrease in DLCO (Increase in FVC by 200 mL, increase in FEV1 by 320 mL, increase in DLCO 43--> 61% compared to 11/28) FVC 3.99 L 97%, FEV1 2.91 L 98%, FEV1/FVC 73%, ERV 130%, RV 94%, TLC 86%, RV/TLC-5%, DLCO 61%, DLCO/VA 81% CT chest 05/01/2025 personally reviewed: Patchy consolidative opacities appreciated bilaterally in the right middle, right lower as well as left lower lobe Overall significant improvement in the patchy opacities, mild worsening in the right upper lobe perifissural Significant mediastinal lymphadenopathy which is chronic -- Acute hypoxic respiratory failure Secondary to multifocal pneumonia Overall the CT scan of the chest done 05/01/2025 shows improvement in the bilateral lower lobe and middle lobe opacities Mild patchy new groundglass opacity in the right upper lobe perifissural. Respiratory BioFire negative for entero-/rhinovirus on 05/01/2025, he was positive for the same even on 12/05/2024 as well as 04/08/2025 Procalcitonin negative on admission and on repeat 05/03/2025. --Asthma-COPD overlap syndrome Patient was diagnosed in his late 40s He did have symptoms in the child but he was never diagnosed officially with it Does have seasonal allergies Non smoker Not in exacerbation On Breo 200 at home. Continue inpatient. -- Bronchiectasis and chronic IgG deficiency Sputum culture in outside facility grew Achromobacter denitrificans. Multi drug resistance pattern-- Sensitive to: Zosyn, Amikacin, Gentamicin, imipenem, tobramycin , Completed the course of IV Zosyn 11/27/2021 LULI grew on sputum 11/16/21 only one sample, Not on treatment Patient does have mediastinal lymphadenopathy from before most like from underlying CML Autoimmune workup 08/11/2023 negative for everything, complements within normal limit Hospitalizations from August 2023 showed diffuse groundglass opacities bilaterally, respiratory bio fire was negative for everything at that time. He was given steroids as well as antibiotics and he did find significant benefit. HRCT December 2023 showed No significant reticular markings, groundglass opacities resolved Pulmonary toxicity/pneumonitis from TKI could be in the differential. I discussed this with Dr. Carlos Pierre, plan was if in future he gets similar problems then need to stop the medication For bronchiectasis continue with Mucinex and Flutter valve whenever he has chest congestion HRCT 12/26/2023 personally reviewed: Linear scarring of the left upper lobe No increased reticular markings or honeycombing Mediastinal lymphadenopathy persists --History of TB Diagnosed 1969 s/p treatment with isoniazid and streptomycin Patient does have some residual scarring in the left upper lobe which could be from history of TB --Chronic IgG deficiency Gets infusion every 28 days --Hx of CLL Follows up with Dr. Pierre Started on Acalabrutinib 02/2022 [facility] Plan: Bronchoscopy 05/02/25 showing Bordetella Pertussis. Will continue ABX with azithromycin per ID recs. [facility] ID and not enough evidence to support treatment of Aspergillus in sputum on 04/13/2025. Will monitor. Patient okay to discharge from pulmonary persepective. Admission and Anticipated Discharge Date Admission Date: May 01, 2025 Supervising Physician Co-Signing Physician Notes Patient's bronchoscopy cultures suggest Bordetella species. ID added azithromycin. Fungal serologies pending. Transbronchial biopsies suggest Boop/EPOXY [employer]. Patient would benefit from a prolonged course of prednisone for treating cryptogenic organizing pneumonia over course of 3 to 6 months. Patient will need follow-up with his primary director of kids in 1 to 2 weeks. Subjective "I feel good." "I was able to walk from one end of the room and back 10 times." Patient subjectively improving. Bronch cultures growing Bordetella Pertussis. ID consulted and ABX changed to Azithromycin. Review of Systems 2 Review of Systems: All systems reviewed & are unremarkable except as noted in HPI & below Physical Exam 2 Physical Exam: VITALS: Reviewed. WEIGHT/BMI reviewed. GEN: Age appearing, well-developed, NAD. PSYCH: Good Judgment. AOx3. Normal memory, mood, and affect. HEENT -Head: NC/AT; -Eyes: PERRL, EOMI. No discharge or redn ess; -Ears: External ears are normal. -Nose: Normal nares. NECK: Supple, with no masses. CV: RRR, no m/r/g. LUNGS: CTAB, no w/r/c. ABD: Soft, NT/ND, NBS, no masses or organomegaly. : N/A SKIN: Warm, well perfused. No skin rashes or abnormal lesions. MSK: No deformities, Normal gait. EXT: No clubbing, cyanosis, or edema. NEURO: Normal muscle strength and tone. No focal deficits. Results & Data Results & Data Vital Signs (Past 12 Hours) Vital Signs Temp Pulse Pulse Resp BP Pulse Ox O2 Del Method 05/05/25 14:19 36.5 C 66 20 115/63 95 Room Air 05/05/25 13:00 66 05/05/25 10:26 36.3 C L 81 20 113/62 93 Room Air 05/05/25 08:50 Room Air 05/05/25 07:22 36.3 C L 55 L 18 110/63 96 Room Air 05/05/25 05:56 56 L Laboratory Results 05/04/25 06:32 05/04/25 06:32 Diagnostic Findings No recent imaging studies. PG Care Time/CCT Total # of Minutes Spent Total Time Spent with Patient: Total time spent is greater than 50% in coordination of care (as documented) at patient's floor/unit and/or counseling patient: Coding Level of Care Code 44516 SUB INP/OBS CARE 2/35MIN Diagnoses SOB (shortness of breath) R06.02 Asthma-COPD overlap syndrome J44.89 Bilateral pneumonia J18.9 Acute hypoxemic respiratory failure J96.01 CLL (chronic lymphocytic leukemia) C91.[address] R93.89 Bronchiectasis J47.9
[2025-05-06 08:00] VITALS: RESP 16
[2025-05-06 11:57] VITALS: PULSE 74; TEMP 97.9; O2SAT 94
--- NOTE | 2025-05-06 12:08 | Pulmonology Progress Note ---
Date of Service May 06, 2025 Assessment & Plan (1) SOB (shortness of breath): (2) Asthma-COPD overlap syndrome: (3) Bilateral pneumonia: (4) Acute hypoxemic respiratory failure: (5) CLL (chronic lymphocytic leukemia): (6) Abnormal chest CT: (7) Bronchiectasis: Plan 80-year-old male admitted to the hospital for shortness of breath Past medical history: BPH, GERD, CLL, history of TB in 1968 s/p treatment, diagnosed asthma in the 40s currently on Breo, MDR Achromobactor s/p treatment PFT 10/26/2023 personally reviewed: No obstructive lung dysfunction, insignificant bronchodilator response, normal TLC, mild decrease in DLCO (Increase in FVC by 200 mL, increase in FEV1 by 320 mL, increase in DLCO 43--> 61% compared to 11/28) FVC 3.99 L 97%, FEV1 2.91 L 98%, FEV1/FVC 73%, ERV 130%, RV 94%, TLC 86%, RV/TLC-5%, DLCO 61%, DLCO/VA 81% CT chest 05/01/2025 personally reviewed: Patchy consolidative opacities appreciated bilaterally in the right middle, right lower as well as left lower lobe Overall significant improvement in the patchy opacities, mild worsening in the right upper lobe perifissural Significant mediastinal lymphadenopathy which is chronic -- Acute hypoxic respiratory failure --> resolved Secondary to multifocal pneumonia Overall the CT scan of the chest done 05/01/2025 shows improvement in the bilateral lower lobe and middle lobe opacities Mild patchy new groundglass opacity in the right upper lobe perifissural. Respiratory BioFire negative for entero-/rhinovirus on 05/01/2025, he was positive for the same even on 12/05/2024 as well as 04/08/2025 Procalcitonin negative on admission and on repeat 05/03/2025. S/p bronchoscopy 05/03/2025, culture growing Bordetella Surgical pathology inclining towards cryptogenic organizing pneumonia --Asthma-COPD overlap syndrome Patient was diagnosed in his late 40s He did have symptoms in the child but he was never diagnosed officially with it Does have seasonal allergies Non smoker Not in exacerbation On Breo 200 at home -- Bronchiectasis and chronic IgG deficiency Sputum culture in outside facility grew Achromobacter denitrificans. Multi drug resistance pattern-- Sensitive to: Zosyn, Amikacin, Gentamicin, imipenem, tobramycin , Completed the course of IV Zosyn 11/27/2021 LULI grew on sputum 11/16/21 only one sample, Not on treatment Patient does have mediastinal lymphadenopathy from before most like from underlying CML Autoimmune workup 08/11/2023 negative for everything, complements within normal limit Hospitalizations from August 2023 showed diffuse groundglass opacities bilaterally, respiratory bio fire was negative for everything at that time. He was given steroids as well as antibiotics and he did find significant benefit. HRCT December 2023 showed No significant reticular markings, groundglass opacities resolved Pulmonary toxicity/pneumonitis from TKI could be in the differential. I discussed this with Dr. Carlos Pierre, plan was if in future he gets similar problems then need to stop the medication For bronchiectasis continue with Mucinex and Flutter valve whenever he has chest congestion HRCT 12/26/2023 personally reviewed: Linear scarring of the left upper lobe No increased reticular markings or honeycombing Mediastinal lymphadenopathy persists --History of TB Diagnosed 1969 s/p treatment with isoniazid and streptomycin Patient does have some residual scarring in the left upper lobe which could be from history of TB --Chronic IgG deficiency Gets infusion every 28 days --Hx of CLL Follows up with Dr. Pierre Started on Acalabrutinib 02/2022 ([facility]) Plan: The surgical pathology from the forceps biopsy of the right lower lobe is going to prescriptive genic organizing pneumonia. In the background of patient having Bordetella growing in the culture. Unguinal hold back on prednisone. Will repeat a CAT scan in 4-6 weeks. If the patient still has persistent opacities then I would think about treating the patient with prednisone 40 mg for at least 4 weeks. Antibiotics as per infectious disease Prophylactic antibiotics as per the recommendation of infectious disease control Please note the above document was generated using voice recognition software. It may contain grammatical, syntax or spelling errors.Any formal questions or concerns about the content, text or information contained within the body of this dictation should be directly addressed to the provider for clarification. Admission and Anticipated Discharge Date Admission Date: May 01, 2025 Subjective Patient seen and examined at bedside. No acute distress, no adverse events overnight Patient was saturating 97% on room air Stated that the cough is significantly decreased in amount No unusual headache or blurry vision Fair appetite No nausea or vomiting Review of Systems 2 Review of Systems: All systems reviewed & are unremarkable except as noted in Subjective Physical Exam 2 Physical Exam: Constitutional: No acute distress HEENT: EOMI, PERRLA Respiratory system: Decreased air entry bilaterally, no wheeze, no rhonchi, mild crackles bilateral lower lobes, significantly improved compared to before CVS: S1-S2 positive, no murmurs or gallops Abdomen: Soft, nontender, nondistended, positive bowel sounds x4 Extremities: +2 pulses bilaterally radialis/ dorsalis pedis, no cyanosis, no edema Neuro: Awake alert oriented x3 Psych: Normal mood and affect G/U: No [place] Skin: no rashes, warm and dry Lymphatic: no cervical or axillary lymphadenopathy Results & Data Results & Data Vital Signs (Past 12 Hours) Vital Signs Temp Pulse Pulse Resp BP Pulse Ox O2 Del Method 05/06/25 11:06 36.6 C 74 16 122/61 94 Room Air 05/06/25 11:06 36.6 C 74 16 122/61 94 Room Air 05/06/25 09:22 Room Air 05/06/25 07:21 36.5 C 64 16 120/64 95 Room Air 05/06/25 05:47 59 L 05/06/25 02:59 36.8 C 58 L 18 136/64 95 Room Air Laboratory Results 05/04/25 06:32 05/04/25 06:32 PG Care Time/CCT Total # of Minutes Spent Total Time Spent with Patient: Total time spent is greater than 50% in coordination of care (as documented) at patient's floor/unit and/or counseling patient: Coding Level of Care Code 91836 SUB INP/OBS CARE 235MIN Diagnoses SOB (shortness of breath) R06.02 Asthma-COPD overlap syndrome J44.89 Bilateral pneumonia J18.9 Acute hypoxemic respiratory failure J96.01 CLL (chronic lymphocytic leukemia) C91.[address] R93.89 Bronchiectasis J47.9
--- NOTE | 2025-05-06 14:28 | Hospitalist Progress Note ---
Date of Service May 06, 2025 Assessment & Plan (1) SOB (shortness of breath): Plan: 80-year-old male with past medical history significant for asthma, COPD, bronchiectasis, chronic IgG deficiency, history of TB, history of B-cell CLL, hyperlipidemia, GERD, BPH, CKD stage III who was recently in the hospital and treated for bilateral pneumonia and also there was some question of TKI induced pneumonitis and treated with steroids and discharged home on 04/15/2025 comes back with shortness of breath. There is a plan for bronchoscopy tomorrow by the pulmonary. Patient was in the ER yesterday but went home and again was feeling short of breath and advised by pulmonary to come back to hospital. Having cough. Sometimes bring phlegm's. Denies any headache. No runny nose or sore throat. Appetite is okay. Sometimes he gets chest pain. Currently no chest pain. No nausea. No abdominal pain. No rash. Normal bowel and bladder movements. Ambulates okay. Hemodynamics okay. Uses oxygen while sleeping. Multifocal pneumonia--POA H/O Asthma-COPD overlap syndrome Bronchiectasis with questionable Aspergillus infection(sputum Culture on 04/13/25) Rhinovirus infection Acute hypoxic respiratory failure secondary to above Pulmonary nodule H/O tuberculosis, chronic IgG deficiency, CLL H/O MAC and Achromobacter --Chest CT: Diffuse bilateral airspace opacities are most consistent with multifocal pneumonia. Overall these have improved since the prior study. Emphysema is noted. Mediastinal lymph nodes measure up to 1.1 cm. This could be infectious, inflammatory or neoplastic. Pulmonary nodules measure up to 7 mm. Blood pressure --S/P bronchoscopy on 04/2725 and bronchial cultures pending --Continue Zosyn, Solu-Medrol --Continue home inhalers --Appreciate pulmonary input and recommendation Appreciate ID input and recommendationhe may have hooping cough and awaiting for final identification of pertussis group that has been developing in bronchial washing. the infectious disease department and Department of health ar e involved -If the pertussis is confirmed then the family members will need to get prophylaxis antibiotic and also the nursing staff will need to have prophylaxis antibiotic too Awaiting IRLANDA recommendation about prophylaxis for B pertussis following discharge Patient has been stable denies any cough and/or shortness of breath at rest or with minimal exertion Prednisone course is finished and still has a few days to go with azithromycin He will be discharged home this afternoon with appropriate precautions to be taken by him and his family members until we get the further recommendation from [facility] Thrombocytopenia Anemia of chronic disease No acute bleeding issues Monitor CBC Platelet count stable and remains at lower side at 81 History of CLL Chronic IV IgG deficiency Gets IVIG as outpatient every 28 days. Will hold Calquence for now Persistent leukocytosis (lymphocytosis, monocytosis) likely due to CLL White blood cell count remains elevated at 22.87 compatible with history of CLL and on steroid Will need to have an appointment with oncologist as an outpatient BPH On finasteride Monitor for urinary retention Severe malnutrition Dietitian consulted DVT Px: SCDs for now Re: Procedure, thrombocytopenia CODE STATUS Full code Admission and Anticipated Discharge Date Admission Date: May 01, 2025 Subjective 05/04/2025 The patient was seen and examined in medical telemetry unit He has been feeling much better following bronchoscopy and with current therapy Does not have any shortness of breath at rest and has been saturating normally on room air Denies any other significant symptoms 05/05/2025 The patient was seen and examined in medical telemetry unit He has been stable without any cough and/or phlegm or shortness of breath at rest Remains medically stable to be discharged but awaiting further recommendation from [facility] 05/06/2025 The patient was seen and examined in medical floor He has been stable and does not have any cough and no shortness of breath at rest Denies any other significant symptoms and has been ambulating in the room without any difficulties He will be discharged home this afternoon Review of Systems Review of Systems: All systems reviewed and are unremarkable as noted below Physical Exam Physical Exam: Lying in bed without any acute distress Constitutional: well developed, well nourished, + ill appearing and average body habitus Eyes: PERRL, conjunctivae normal, anicteric sclerae ENMT: external ear and nose normal, oropharynx normal Neck: trachea midline, no thyromegaly Respiratory: no respiratory distress Auscultation: + diminished lung sounds and + crackles (Minimal crackles at the bases has) Cardiovascular: Rate/Rhythm: regular rate and regular rhythm; not tachycardic Heart Sounds: normal S1 and normal S2; no murmur Extremities: no edema Gastrointestinal (Abdomen): Inspection/Auscultation: normal bowel sounds; abdomen not distended Percussion/Palpation: abdomen soft; abdomen nontender Musculoskeletal: No acute arthritis involving any of the joint Neurologic: normal touch/pain/proprioception and moves all extremities; no focal motor deficits Lymphatic: no cervical or axillary lymphadenopathy Results & Data Results & Data Vital Signs (Past 12 Hours) Vital Signs Temp Pulse Pulse Resp BP Pulse Ox O2 Del Method 05/06/25 11:06 36.6 C 74 16 122/61 94 Room Air 05/06/25 11:06 36.6 C 74 16 122/61 94 Room Air 05/06/25 09:22 Room Air 05/06/25 07:21 36.5 C 64 16 120/64 95 Room Air 05/06/25 05:47 59 L 05/06/25 02:59 36.8 C 58 L 18 136/64 95 Room Air Medications Administered Current Inpatient Medications Acetaminophen (Acetaminophen 325 Mg Tab) 650 mg PO Q4H PRN PRN Reason: Pain or Fever Stop: 05/31/25 21:51 Azithromycin (Azithromycin 250 Mg Tab) 250 mg PO QAM [facility] Stop: 05/10/25 08:59 Last Admin: 05/06/25 09:20 Dose: 250 mg Finasteride (Finasteride 5 Mg Tab) 5 mg PO QAM [facility] Stop: 06/01/25 08:59 Last Admin: 05/06/25 09:20 Dose: 5 mg Fluticasone Propionate (Fluticasone Propionate Na Spr 16 Gm Btl) 2 sprays NA BID [facility] Stop: 05/31/25 21:51 Last Admin: 05/06/25 09:20 Dose: 2 sprays Fluticasone/Vilanterol (Fluticasone/Vilanterol 200/25mcg 14 Puffs/Inhaler) 1 puffs INH QAM [facility] Stop: 06/01/25 08:59 Last Admin: 05/06/25 09:20 Dose: 1 puffs Guaifenesin (Guaifenesin 600 Mg Tabcr) 600 mg PO AMHS PRN PRN Reason: Cough Stop: 05/31/25 22:32 Lactobacillus Acidophilus (Advanced Probiotic 625 Mg Capsule) 1,250 mg PO DAILY [facility] Stop: 06/01/25 08:59 Last Admin: 05/06/25 09:20 Dose: 1,250 mg Levalbuterol HCl (Levalbuterol 1.25 Mg/3 Ml Neb) 1.25 mg NEB Q4H PRN PRN Reason: Shortness Of Breath Or Wheezing Stop: 05/31/25 21:51 Loratadine (Loratadine 10 Mg Tab) 10 mg PO QAM [facility] Stop: 06/01/25 08:59 Last Admin: 05/06/25 09:20 Dose: 10 mg Melatonin (Melatonin 3 Mg Tab) 9 mg PO HS PRN PRN Reason: Sleep Stop: 05/31/25 21:57 Last Admin: 05/05/25 21:04 Dose: 9 mg Multivitamins/Minerals (Cerovite Adv Formula Tab) 1 tab PO QAM [facility] Stop: 06/01/25 08:59 Last Admin: 05/06/25 09:20 Dose: 1 tab Nitroglycerin (Nitroglycerin Sl 0.4 Mg/Tab Tab) 0.4 mg SL Q5M PRN PRN Reason: Chest Pain Stop: 05/31/25 21:51 Sodium Chloride (Sodium Chloride 0.65% Na Soln 45 Ml ([place])) 1 sprays NA UD PRN PRN Reason: Congestion Stop: 05/31/25 21:51
[2025-05-06 15:53] VITALS: BP 122/58
--- NOTE | 2025-05-06 17:05 | Discharge Summary ---
Date of Service May 06, 2025 Admission HPI Per Admitting Provider 80-year-old male with past medical history significant for asthma, COPD, bronchiectasis, chronic IgG deficiency, history of TB, history of B-cell CLL, hyperlipidemia, GERD, BPH, CKD stage III who was recently in the hospital and treated for bilateral pneumonia and also there was some question of TKI induced pneumonitis and treated with steroids and discharged home on 04/15/2025 comes back with shortness of breath. There is a plan for bronchoscopy tomorrow by the pulmonary. Patient was in the ER yesterday but went home and again was feeling short of breath and advised by pulmonary to come back to hospital. Having cough. Sometimes bring phlegm's. Denies any headache. No runny nose or sore throat. Appetite is okay. Sometimes he gets chest pain. Currently no chest pain. No nausea. No abdominal pain. No rash. Normal bowel and bladder movements. Ambulates okay. Hemodynamics okay. Uses oxygen while sleeping. Past medical history. As mentioned above. Past surgical history. Bronchoscopy or dental surgery. Tonsillectomy adenoidectomy. Heart catheterization. Vasectomy. Removal of prostate. Myringotomy. Social history: . No smoking. No alcohol use. No drug use. Family history. Brother had cancer. Brother had hypertension. Brother had bipolar disorder. Maternal grandmother had diabetes. Mother had diabetes. Father had stroke. Daughter has immunodeficiency. Admission Exam Per Admitting Provider Physical Exam: General- Not in distress Head- atraumatic Eyes- PERRL. ENT- oropharynx clear Neck- supple, no JVD. Lungs- clear to auscultation no wheezing or crackles. Heart- regular rate and rhythm; no murmur, no gallop. Abdomen- normal bowel sounds, soft, nontender, no distension Extremities- no pretibial edema, no erythema seen Neuro- alert, oriented PERRL, no facial palsy; no dysarthria; moves extremities Principal Diagnosis Multifocal pneumonia complicated by asthma/COPD and bronchiectasis, possible Bordetella pertussis infection, CLL, thrombocytopenia and anemia of chronic disease Discharge Exam Lying in bed without any acute distress Constitutional well developed, well nourished, + ill appearing and average body habitus Eyes PERRL, conjunctivae normal, anicteric sclerae ENMT external ear and nose normal, oropharynx normal Neck trachea midline, no thyromegaly Respiratory no respiratory distress Auscultation: + diminished lung sounds and + crackles (Minimal crackles at the b ases has) Cardiovascular Rate/Rhythm: regular rate and regular rhythm; not tachycardic Heart Sounds: normal S1 and normal S2; no murmur Extremities: no edema Gastrointestinal (Abdomen) Inspection/Auscultation: normal bowel sounds; abdomen not distended Percussion/Palpation: abdomen soft; abdomen nontender Neurologic normal touch/pain/proprioception and moves all extremities; no focal motor deficits Lymphatic no cervical or axillary lymphadenopathy Discharge Data Allergies Allergy/AdvReac Type Severity Reaction Status Date / Time rofecoxib Allergy Intermediate RASH,SWELLING, Verified 05/01/25 19:18 UNSTEADY GAIT/STUMBLING lamotrigine [From Lamictal] AdvReac Mild cannot Verified 05/01/25 19:18 think straight, stumbling and falling. meperidine AdvReac Mild Vomiting Verified 05/01/25 19:18 Consultations 05/01/25 19:29 ED Decision to Admit Stat 05/02/25 08:00 Consult Pulmonology Routine 05/03/25 11:40 Consult Infectious Diseases Routine Ordered Studies 05/01/25 22:10 CT chest diagnostic wo con Urgent Hospital Course (1) SOB (shortness of breath): 80-year-old male with past medical history significant for asthma, COPD, bronchiectasis, chronic IgG deficiency, history of TB, history of B-cell CLL, hyperlipidemia, GERD, BPH, CKD stage III who was recently in the hospital and treated for bilateral pneumonia and also there was some question of TKI induced pneumonitis and treated with steroids and discharged home on 04/15/2025 comes back with shortness of breath. There is a plan for bronchoscopy tomorrow by the pulmonary. Patient was in the ER yesterday but went home and again was feeling short of breath and advised by pulmonary to come back to hospital. Having cough. Sometimes bring phlegm's. Denies any headache. No runny nose or sore throat. Appetite is okay. Sometimes he gets chest pain. Currently no chest pain. No nausea. No abdominal pain. No rash. Normal bowel and bladder movements. Ambulates okay. Hemodynamics okay. Uses oxygen while sleeping. Multifocal pneumonia--POA H/O Asthma-COPD overlap syndrome Bronchiectasis with questionable Aspergillus infection(sputum Culture on 04/13/25) Rhinovirus infection Acute hypoxic respiratory failure secondary to above Pulmonary nodule H/O tuberculosis, chronic IgG deficiency, CLL H/O MAC and Achromobacter --Chest CT: Diffuse bilateral airspace opacities are most consistent with multifocal pneumonia. Overall these have improved since the prior study. Emphysema is noted. Mediastinal lymph nodes measure up to 1.1 cm. This could be infectious, inflammatory or neoplastic. Pulmonary nodules measure up to 7 mm. Blood pressure --S/P bronchoscopy on 04/2725 and bronchial cultures pending --Continue Zosyn, Solu-Medrol --Continue home inhalers --Appreciate pulmonary input and recommendation Appreciate ID input and recommendationhe may have hooping cough and awaiting for final identification of pertussis group that has been developing in bronchial washing. the infectious disease department and Department of health are involved -If the pertussis is confirmed then the family members will need to get prophylaxis antibiotic and also the nursing staff will need to have prophylaxis antibiotic too Awaiting [facility] recommendation about prophylaxis for B pertussis following discharge Patient has been stable denies any cough and/or shortness of breath at rest or with minimal exertion Prednisone course is finished and still has a few days to go with azithromycin He will be discharged home this afternoon with appropriate precautions to be taken by him and his family members until we get the further recommendation from [facility] Thrombocytopenia Anemia of chronic disease No acute bleeding issues Monitor CBC Platelet count stable and remains at lower side at 81 History of CLL Chronic IV IgG deficiency Gets IVIG as outpatient every 28 days. Will hold Calquence for now Persistent leukocytosis (lymphocytosis, monocytosis) likely due to CLL White blood cell count remains elevated at 22.87 compatible with history of CLL and on steroid Will need to have an appointment with oncologist as an outpatient BPH On finasteride Monitor for urinary retention Severe malnutrition Dietitian consulted DVT Px: SCDs for now Re: Procedure, thrombocytopenia CODE STATUS Full code Total Time Total Time Spent Total Time Spent (In Minutes): 45 minutes Discharge Plan Discharge Items Patient Disposition: Home - Self-Care Reason For Visit: SOB Discharge Diagnosis: Multifocal pneumonia complicated by asthma/COPD and bronchiectasis, possible Bordetella pertussis infection, CLL, thrombocytopenia and anemia of chronic disease Condition on Discharge: Fair Activity: Resume your previous activity Non-emergency contact: Primary Care Provider Call non-emergency contact if: you have any medication questions and your symptoms worsen Follow-up/Referrals: Linda Baeza DO [Primary Care Provider] - (Date & Time 05/13/2025 1:40 PM Provider: Linda Baeza DO Family [facility] [place] ) Diet: Regular Addtl Attending Provider Instructions: Please take precautions to avoid falls Take your medications as advised Finish the course of azithromycin Please take precautions with mask and hygienic precautions as mentioned at home and the precautions should be taken by the family members or whoever is coming to visit you. Will give you a call as soon as we get an answer from Department of Health for further recommendation Pending Studies at Discharge: No Stand-Alone Forms: My [facility], Smoking Cessation Medications and DC Order Prescriptions: New azithromycin 250 mg Tablet 250 mg PO QAM Qty: 2 0RF Continued (DME) Flutter Valve Device See Rx Instructions .MEDSUPPLY Qty: 1 0RF Rx Instructions: Use it every 6 hours when awake. omega-3 fatty acids 1,000 mg capsule 1,000 mg PO QAM finasteride 5 mg tablet 5 mg PO QAM fluticasone propionate [Allergy Relief (fluticasone)] 50 mcg/actuation spray,suspension 2 spray intranasal BID Rx Instructions: administer into each nostril once daily fluticasone furoate-vilanterol [Breo Ellipta] 200-25 mcg/dose blister with device 1 inh inhalation QAM Calquence (acalabrutinib mal) 100 mg tablet 100 mg PO AMHS Patient Comments: patient states i have my own CALQUENCE with me to use since the hospital doesnt have it. dextromethorphan-guaifenesin [Mucinex DM] 60-1,200 mg Tablet Extended Release 12 Hr 1 tab PO AMHS loratadine 10 mg Capsule 10 mg PO QAM melatonin 10 mg Tablet 10 mg PO HS guar gum Packet 1 packet PO QAM Rx Instructions: mix into at least 4 oz water or juice before administering Privigen 10 % Solution 40 g IV MONTHLY Rx Instructions: every 28 days Saline Nasal 0.65 % Aerosol,[place] 1 spray INTRANASAL UD PRN (Reason: Congestion) Men's 50 Plus Multivitamin 400-20-370 mcg Tablet 1 tab PO QAM levalbuterol HCl 1.25 mg/3 mL solution for nebulization 1.25 mg INHALATION QPM PRN (Reason: shortness of breath) Patient Comments: uses almost every night vitamin A-vitamin C-vit E-min Tablet 1 tab PO BID Advanced Probiotic 625 mg (10 billion cell) Capsule 1 cap PO DAILY Discharge Orders: Discharge Order (Routine); Ordered 05/06/25 Ordered By: Ebony Guevara/Other Patient Handouts: ED Whooping Cough Pertussis (Adult) Admission Data Admit Date/Time: 05/01/25 20:24 Attending Provider: Ebony Pérez Admit Provider: Shun España Primary Care Provider: Linda Baeza Other Providers: Shun España; Max Martins; Alireza Johnson; Regla Barragan; Cali Anthony I.; Abdifatah Gonzalez II; Zoë Abernathy; Baldev Daugherty; Ector Polo; Venkatesh Chu; Nikhil Real Other Interventions: Discharge Summary Assessment (RN) Last Done: 05/06/25 16:02
[2025-05-07 18:37] LABS: Aspergillus Antigen, Serum Not Detected (Not Detected)
== END 2025-05-06 18:07 | disposition home or self-care (01) | DRG 166 ==
LOC: ED 17:57 → SUATTDRO 20:24 → 2N 20:24 → 2W 05-04 07:12